=== PATIENT | male | born 1940 | race Caucasian/White ===

== ENCOUNTER 2019-10-23 07:10 | Inpatient (IN) | payer MEDICARE ==
--- NOTE | 2019-10-23 07:30 | ED Physician Documentation ---
PD HPI FOCAL NEURO - Stated complaint Stated Complaint: NUMBNESS LT SIDE - Chief complaint Chief Complaint: Neuro - History obtained from History obtained from: Patient - History of Present Illness Timing - onset: How many days ago (2) Timing - duration: Days (2) Timing - details: Abrupt onset (2 days ago and has persisted.) Severity of deficit: Moderate Weakness: Arm, Leg, Left, Other (seems fumbly and off balance with walking, with left leg not working well.) Numbness: Arm, Leg, Left. 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 denies: Difficulty speaking, Near syncope, Syncope, Altered mental status, Headache, Head injury PD PAST MEDICAL HISTORY - Past Medical History Cardiovascular: None Respiratory: None Neuro: None Endocrine/Autoimmune: None - Present Medications Home Medications: Ambulatory Orders Medication Instructions Recorded Confirmed No Known Home Medications 10/23/19 10/23/19 - Allergies Allergies/Adverse Reactions: Allergies Allergy/AdvReac Type Severity Reaction Status Date / Time No Known Drug Allergies Allergy Verified 10/23/19 07:28 - Living Situation Living Situation: reports: With spouse/s.o. Living Arrangement: reports: At home - Social History Does the pt smoke?: No Does the pt drink ETOH?: No Does the pt have substance abuse?: No - Family History Family history: denies: Cerebral aneurysm PD ED PE NORMAL - Vitals Vital signs reviewed: Yes - General General: Alert and oriented X 3, No acute distress, Well developed/nourished - HEENT HEENT: Moist mucous membranes, Pharynx benign, Other (definitely hard of hearing; hears low tones better) - Neck Neck: Supple, no meningeal sign, No adenopathy, No bruit - Cardiac Cardiac: RRR, No murmur - Respiratory Respiratory: Clear bilaterally - Abdomen Abdomen: Soft, Non tender - Back Back: No CVA TTP - Derm Derm: Normal color, Warm and dry - Extremities Extremities: No deformity, No tenderness to palpate - Neuro Neuro: Alert and oriented X 3, 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, No motor deficit (His strength in the extremities seems good but he is definitely showing ataxia with movement on the left side.), No sensory deficit (He actually seems to have good sensation to pinprick in the extremities.), Normal speech Eye Opening: Spontaneous Motor: Obeys Commands Verbal: Oriented GCS Score: 15 - Psych Psych: Normal mood NIHSS - Level of Consciousness Level of consciousness: (0) Alert, Keenly responsive LOC Questions: (0) Answers both Q's correct LOC Commands: (0) Performs both correctly - Gaze Best Gaze: (0) Normal - Visual Visual: (0) No loss - Facial Palsy Facial Palsy: (0) Normal, symmetrical movement - Motor Arms (both separate) Motor Arm (right): (0) No drift Motor Arm (left): (1) Drift - Motor Legs (both separate) Motor Leg (right): (0) No drift Motor Leg (left): (1) Drift - Limb Ataxia Limb Ataxia: (2) Present in 2 limbs - Sensory Sensory: (0) Normal - Best Language Best Language: (0) No aphasia - Dysarthria Dysarthria: (0) Normal - Extinction and Inattention (formally neg Extinction and inattention: (0) No abnormality - Total Score/Results Total Score/Result: 4 Results - Vitals Vitals: Vital Signs - 24 hr 10/23/19 10/23/19 10/23/19 07:25 09:00 10:30 Temperature 36.5 C Heart Rate 95 77 94 Respiratory 16 16 20 Rate Blood Pressure 163/125 H 134/74 H 168/109 H O2 Saturation 100 100 98 10/23/19 10/23/19 11:30 12:30 Temperature Heart Rate 85 89 Respiratory 18 13 Rate Blood Pressure 134/77 H 127/67 O2 Saturation 95 97 Oxygen O2 Source Room air - EKG (time done) 07:24 Rate: Rate (enter#) (84) Rhythm: NSR [place]: Normal Intervals: Normal [place] QRS: Normal Ischemia: Normal ST segments, Non specific changes. No: ST elevation c/w ischemia, Q waves - Labs Labs: Laboratory Tests 10/23/19 10/23/19 10/23/19 07:35 07:35 07:35 WBC 8.8 RBC 5.45 Hgb 15.7 Hct 48.1 MCV 88.3 MCH 28.8 MCHC 32.6 RDW 13.2 Plt Count 290 MPV 9.1 Neut # (Auto) 6.6 Lymph # (Auto) 1.5 [place] # (Auto) 0.5 Eos # (Auto) 0.1 Baso # (Auto) 0.1 Absolute Nucleated RBC 0.00 Nucleated RBC % 0.0 ESR 3 Sodium 139 Potassium 4.0 Chloride 104 Carbon Dioxide 25 Anion Gap 10.0 BUN 18 Creatinine 1.0 Estimated GFR (MDRD) 72 L Glucose 110 H POC Whole Bld Glucose Calcium 9.4 Magnesium 2.1 Total Bilirubin 1.3 H AST 16 ALT 18 Alkaline Phosphatase 94 Troponin I High Sens Total Protein 7.2 Albumin 4.3 Globulin 2.9 Albumin/Globulin Ratio 1.5 Lipase 38 10/23/19 10/23/19 07:35 07:38 WBC RBC Hgb Hct MCV MCH MCHC RDW Plt Count MPV Neut # (Auto) Lymph # (Auto) [place] # (Auto) Eos # (Auto) Baso # (Auto) Absolute Nucleated RBC Nucleated RBC % ESR Sodium Potassium Chloride Carbon Dioxide Anion Gap BUN Creatinine Estimated GFR (MDRD) Glucose POC Whole Bld Glucose 98 Calcium Magnesium Total Bilirubin AST ALT Alkaline Phosphatase Troponin I High Sens 8.7 Total Protein Albumin Globulin Albumin/Globulin Ratio Lipase - Rads (name of study) head and neck CT/angio Radiology: Prelim report reviewed, Discussed with rads (right distal 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 No masses, bleeding, edema. Neck portion normal. ), See rad report PD MEDICAL DECISION MAKING - ED course Complexity details: reviewed results (Apparent subacute stroke on CT of the right occipital area. He is having ataxic movements and report of some numbness. I would have expected some middle cerebral artery distribution. It does seem more ataxic than week on exam. I will talk with the hospitalist regarding further evaluation and work-up. One limitation may be the unavailability of MRI at our facility for [address] more [address] though the [address] is showing the deficit and will decide if the degree of need for MRI in addition.He will likely need OT and PT evaluation. He is in a sinus rhythm but consider echo for evaluating the idea of embolic cause. We will start him on aspirin and Plavix at this time.), re-evaluated patient, considered differential (Symptoms for 2 days with some left-sided ataxia and reported numbness. No facial involvement. He denies any visual changes or vision loss. Things have not been improving so he his talked him into coming in for evaluation.), d/w patient, d/w safety and health consultant (I talked with the hospitalist at approximate 1138 to discussed disposition for admission for stroke. She asked that I talk with [place] [facility] to ensure no other interventions. I did talk with [place] [facility] about 10 or 15 minutes later and reviewed the case. He said there were no acute interventions needed but did suggest stroke work-up including echo and typical evaluations. I updated the patient and his about the anticipated course of evaluation.) Departure - Departure Disposition: 66 [facility] DC/Xfer Clinical Impression: Cerebrovascular accident (CVA) Condition: Stable
[2019-10-23] MEDS ORDERED: SODIUM CHLORIDE 0.9% 1,000 ML IV ONE (07:49)
[2019-10-23] MEDS ORDERED: IOVERSOL 320 100 ML VIAL IVP ONE ×2 (07:58→08:46)
[2019-10-23 08:04] LABS: BASOPHILS # (AUTO) 0.1 10^3/uL (0.0-0.1); BASOPHILS % (AUTO) 0.7 %; EOSINOPHILS # (AUTO) 0.1 10^3/uL (0.0-0.7); EOSINOPHILS % (AUTO) 0.8 %; HGB - HEMOGLOBIN 15.7 g/dL (14.0-18.0); LYMPHOCYTES # (AUTO) 1.5 10^3/uL (1.5-3.5); LYMPHOCYTES % (AUTO) 17.3 %; MEAN CORPUSCULAR HEMOGLOBIN 28.8 pg (27.0-31.0); MEAN CORPUSCULAR HGB CONC 32.6 g/dL (32.0-36.0); MEAN CORPUSCULAR VOLUME 88.3 fL (80.0-94.0); MEAN PLATELET VOLUME 9.1 fL (7.4-11.4); MONOCYTES # (AUTO) 0.5 10^3/uL (0.0-1.0); MONOCYTES % (AUTO) 5.9 %; NEUTROPHILS # (AUTO) 6.6 10^3/uL (1.5-6.6); NEUTROPHILS % (AUTO) 74.5 %; PLT - PLATELET COUNT 290 10^3/uL (130-450); RED BLOOD COUNT 5.45 10^6/uL (4.70-6.10); RED CELL DISTRIBUTION WIDTH 13.2 % (12.0-15.0); WHITE BLOOD COUNT 8.8 x10^3/uL (4.8-10.8)
[2019-10-23 08:07] LABS: ALBUMIN 4.3 g/dL (3.2-5.5); ALBUMIN/GLOBULIN RATIO 1.5 (1.0-2.2); BILIRUBIN,TOTAL 1.3 mg/dL (0.2-1.0); CALCIUM 9.4 mg/dL (8.5-10.3); MAGNESIUM 2.1 mg/dL (1.7-2.8); TOTAL PROTEIN 7.2 g/dL (6.7-8.2)
--- NOTE | 2019-10-23 09:35 | CT Report ---
Reason: L sided facial droop Procedure Date: 10/23/2019 Accession Number: [id number] / [id number] Procedure: CT - ANGIO HEAD W/WO CPT Code: Final Report FULL RESULT: EXAM: CT ANGIOGRAM HEAD AND NECK. CT SCAN HEAD WITHOUT AND WITH CONTRAST. EXAM DATE: 10/23/2019 08:45 AM. CLINICAL HISTORY: Left arm and leg numbness and ataxia, difficulty walking, confusion x2 days COMPARISON: None available at this institution. TECHNIQUE: Routine axial helical CTA imaging was performed from the aortic arch through the [place] of Vo. Routine axial CT imaging of the head was performed prior to and following contrast administration. Reconstructions: Routine multiplanar 3D MIP reconstructions. IV contrast: 80 cc Optiray 320 IV. NASCET Criteria are used for stenosis measurements. In accordance with CT protocol optimization, one or more of the following dose reduction techniques were utilized for this exam: automated exposure control, adjustment of mA and/or KV based on patient size, or use of iterative reconstructive technique. FINDINGS: Non Contrast Head: There is no mass, mass effect, midline shift or abnormal extraaxial fluid collection. Size and configuration of the ventricles appear normal. There is no intracranial hemorrhage. There is loss of ruiz-white matter differentiation in the posterior inferior right occipital lobe, area measuring 2.8 x 1.6 x 1.9 cm (best seen on axial image 11 series 3 and coronal image 34 series 10). Mild diffuse cerebral volume loss. Brain stem and cerebellum appear unremarkable. Calvarium and skull base appear intact and normal. Orbits and extracranial soft tissue appear unremarkable. Post contrast CT Head: No abnormal enhancement. Ruiz white matter differentiation appear preserved. Dural venous sinus and deep cerebral veins appear normal. CTA HEAD: Anterior Circulation: The internal carotid arteries (ICA), middle cerebral arteries (MCA), and anterior cerebral arteries (NIKUNJ) are patent bilaterally. The anterior communicating artery (A-COM) appears patent. No aneurysms, stenoses, or anatomic anomalies evident. Posterior Circulation: Abnormal appearance, tapering of the P2 segment right TOY DEPARTMENT MANAGER without distal reconstitution. The superior vertebral artery, basilar, and posterior cerebral arteries (TOY DEPARTMENT MANAGER) are otherwise patent. No aneurysms, stenoses, or anomalies evident. The posterior communicating arteries (P-COM) are patent on the right, hypoplastic on the left. CTA NECK: Right Carotid: The common carotid, internal carotid, and external carotid arteries are widely patent. No dissection, significant atherosclerotic plaque, or calcification identified. No significant stenosis by NASCET criteria. Left Carotid: The common carotid, internal carotid, and external carotid arteries are widely patent. No dissection, significant atherosclerotic plaque, or calcification identified. No significant stenosis by NASCET criteria. Vertebrals: The vertebrobasilar system shows no stenosis, dissection, aneurysm, or significant atherosclerotic disease. Visible aortic arch and pulmonary artery appear normal. Other: Multilevel degenerative changes of the cervical spine without significant canal narrowing. Multilevel facet degenerative changes. No suspicious lytic or sclerotic osseous lesion. Neck soft tissue appear unremarkable. Paranasal sinuses and mastoid air cells are unremarkable. IMPRESSION: CT SCAN HEAD: 1. No intracranial hemorrhage, midline shift or hydrocephalus. 2. Evolving subacute inferior posterior right occipital lobe infarction, in the right TOY DEPARTMENT MANAGER territory. 3. Mild diffuse cerebral volume loss. 4. No abnormal enhancement. Enhancement within the dural venous sinuses appear unremarkable. CT ANGIOGRAM NECK: 1. No significant cervical carotid or vertebral artery stenosis. 2. No evidence for dissection. CT ANGIOGRAM HEAD: 1. Tapering of the distal right TOY DEPARTMENT MANAGER, compatible with thrombosis of its P2 segment and distally. 2. No significant intracranial arterial stenosis otherwise. No evidence for aneurysm. RADIA The critical result notification system was initiated by Dr. Celso Dumont at 09:26 AM on 10/23/2019. The above critical result findings were discussed with Dr.John Pandya by Dr. Celso Dumont at 09:28 AM on 10/23/2019.
--- NOTE | 2019-10-23 09:35 | CT Report ---
Reason: L sided facial droop, L neck pain Procedure Date: 10/23/2019 Accession Number: [id number] / [id number] Procedure: CT - ANGIO NECK W CPT Code: Final Report FULL RESULT: EXAM: CT ANGIOGRAM HEAD AND NECK. CT SCAN HEAD WITHOUT AND WITH CONTRAST. EXAM DATE: 10/23/2019 08:45 AM. CLINICAL HISTORY: Left arm and leg numbness and ataxia, difficulty walking, confusion x2 days COMPARISON: None available at this institution. TECHNIQUE: Routine axial helical CTA imaging was performed from the aortic arch through the [place] of Vo. Routine axial CT imaging of the head was performed prior to and following contrast administration. Reconstructions: Routine multiplanar 3D MIP reconstructions. IV contrast: 80 cc Optiray 320 IV. NASCET Criteria are used for stenosis measurements. In accordance with CT protocol optimization, one or more of the following dose reduction techniques were utilized for this exam: automated exposure control, adjustment of mA and/or KV based on patient size, or use of iterative reconstructive technique. FINDINGS: Non Contrast Head: There is no mass, mass effect, midline shift or abnormal extraaxial fluid collection. Size and configuration of the ventricles appear normal. There is no intracranial hemorrhage. There is loss of ruiz-white matter differentiation in the posterior inferior right occipital lobe, area measuring 2.8 x 1.6 x 1.9 cm (best seen on axial image 11 series 3 and coronal image 34 series 10). Mild diffuse cerebral volume loss. Brain stem and cerebellum appear unremarkable. Calvarium and skull base appear intact and normal. Orbits and extracranial soft tissue appear unremarkable. Post contrast CT Head: No abnormal enhancement. Ruiz white matter differentiation appear preserved. Dural venous sinus and deep cerebral veins appear normal. CTA HEAD: Anterior Circulation: The internal carotid arteries (ICA), middle cerebral arteries (MCA), and anterior cerebral arteries (NIKUNJ) are patent bilaterally. The anterior communicating artery (A-COM) appears patent. No aneurysms, stenoses, or anatomic anomalies evident. Posterior Circulation: Abnormal appearance, tapering of the P2 segment right AGENCY RECRUITER without distal reconstitution. The superior vertebral artery, basilar, and posterior cerebral arteries (AGENCY RECRUITER) are otherwise patent. No aneurysms, stenoses, or anomalies evident. The posterior communicating arteries (P-COM) are patent on the right, hypoplastic on the left. CTA NECK: Right Carotid: The common carotid, internal carotid, and external carotid arteries are widely patent. No dissection, significant atherosclerotic plaque, or calcification identified. No significant stenosis by NASCET criteria. Left Carotid: The common carotid, internal carotid, and external carotid arteries are widely patent. No dissection, significant atherosclerotic plaque, or calcification identified. No significant stenosis by NASCET criteria. Vertebrals: The vertebrobasilar system shows no stenosis, dissection, aneurysm, or significant atherosclerotic disease. Visible aortic arch and pulmonary artery appear normal. Other: Multilevel degenerative changes of the cervical spine without significant canal narrowing. Multilevel facet degenerative changes. No suspicious lytic or sclerotic osseous lesion. Neck soft tissue appear unremarkable. Paranasal sinuses and mastoid air cells are unremarkable. IMPRESSION: CT SCAN HEAD: 1. No intracranial hemorrhage, midline shift or hydrocephalus. 2. Evolving subacute inferior posterior right occipital lobe infarction, in the right AGENCY RECRUITER territory. 3. Mild diffuse cerebral volume loss. 4. No abnormal enhancement. Enhancement within the dural venous sinuses appear unremarkable. CT ANGIOGRAM NECK: 1. No significant cervical carotid or vertebral artery stenosis. 2. No evidence for dissection. CT ANGIOGRAM HEAD: 1. Tapering of the distal right AGENCY RECRUITER, compatible with thrombosis of its P2 segment and distally. 2. No significant intracranial arterial stenosis otherwise. No evidence for aneurysm. RADIA The critical result notification system was initiated by Dr. Celso Dumont at 09:26 AM on 10/23/2019. The above critical result findings were discussed with Dr.John Pandya by Dr. Celso Dumont at 09:28 AM on 10/23/2019.
[2019-10-23] MEDS ORDERED: ASPIRIN CHEW 81 MG TABLET PO STA (10:12)
[2019-10-23] MEDS ORDERED: CLOPIDOGREL 75 MG TABLET PO STA (10:12)
[2019-10-23] MEDS ORDERED: ONDANSETRON 4 MG/2 ML VIAL IVP PRN (13:55)
[2019-10-23] MEDS ORDERED: ACETAMINOPHEN 325 MG TABLET PO PRN (13:55)
[2019-10-23] MEDS ORDERED: SODIUM CHLORIDE FLUSH 0.9% 10 ML SYRINGE IVP PRN (13:55)
--- NOTE | 2019-10-23 16:38 | PHARMACY PROGRESS NOTE ---
- Best Possible Medication History Admit Date and Time: 10/23/19 7068 Processed by: Pharmacy Medication History completed: Yes Patient Interview: Pt unable to participate Secondary Source(s): Spouse/Significant other As the person ultimately responsible for medication therapy, providers are able to order a medication from an existing home medication list in [facility] via the "Reconcile Routine" prior to Confirmation of that medication by applications support analyst. Such practice is discouraged except when the physician, in their clinical judgment, deems that a medical need exists for a medication without regard to previous use.
--- NOTE | 2019-10-23 17:34 | Ultrasound Report ---
Reason: Stroke Procedure Date: 10/23/2019 Accession Number: [id number] / [id number] Procedure: US - Carotid Doppler Complete CPT Code: Final Report FULL RESULT: EXAM: BILATERAL CAROTID AND VERTEBRAL ARTERY DUPLEX DOPPLER ULTRASOUND: EXAM DATE: 10/23/2019 03:39 PM CLINICAL HISTORY: Stroke. COMPARISON: ANGIO NECK W 10/23/2019 8:28 AM. TECHNIQUE: Grayscale imaging, color Doppler, and duplex spectral Doppler were used to evaluate the carotid and vertebral arteries bilaterally. Static images were obtained. FINDINGS: Intimal hyperplasia bilateral common carotid arteries. No significant plaque is identified in the right or left common or internal carotid arteries. Normal antegrade flow is present in bilateral vertebral arteries. VELOCITIES (cm/s): Right CCA mid: PSV 83.3 cm/s CCA dist: PSV 64.2 cm/s ICA prox: PSV 32.6 cm/s, EDV 8.2 cm/s ICA mid: PSV 47.0 cm/s, EDV 14.2 cm/s ICA dist: PSV 72.4 cm/s, EDV 18.7 cm/s ECA: PSV 57.6 cm/s Vert: PSV 35.5 cm/s ICA/CCA: 1.1 Left CCA mid: PSV 78.5 cm/s CCA dist: PSV 86.1 cm/s ICA prox: PSV 79.7 cm/s, EDV 16.5 cm/s ICA mid: PSV 73.8 cm/s, EDV 20.0 cm/s ICA dist: PSV 96.5 cm/s, EDV 23.2 cm/s ECA: PSV 66.1 cm/s Vert: PSV 41.9 cm/s ICA/CCA: 1.0 ICA diameter stenosis: Right: <50% by velocity and <70% by NASCET criteria. Left: <50% by velocity and <70% by NASCET criteria. IMPRESSION: 1. No significant bilateral carotid artery plaquing. 2. In the right carotid artery there are no elevated carotid artery velocities to suggest hemodynamically significant stenosis. 3. In the left carotid artery there are no elevated carotid artery velocities to suggest hemodynamically significant stenosis. 4. Normal antegrade flow is present in bilateral vertebral arteries. General Recommendations: Stenosis =50% ICA - Follow-up ultrasound 6-12 months Stenosis <50% ICA - High Risk Patient with plaque - Follow-up ultrasound 1-2 years Normal Study but High Risk Patient - Follow-up ultrasound 3-5 years Management recommendations and diagnostic criteria are based on current IAC endorsed standards in Carotid Artery Stenosis: Grayscale and Doppler Ultrasound Diagnosis. Validated velocity measurements with angiographic measurements and velocity criteria are extrapolated from diameter data as defined by the Society of Radiologists in Ultrasound Consensus Conference Radiology 2003; 229;340-346. RADIA
[2019-10-23] MEDS: SODIUM CHLORIDE FLUSH 0.9% 10 ML SYRINGE IVP SCH (18:38)
[2019-10-23] MEDS: FAMOTIDINE 20 MG TABLET PO SCH (21:05)
--- NOTE | 2019-10-23 22:22 | HISTORY & PHYSICAL EXAMINATION ---
DATE OF SERVICE: 10/23/2019 Physician: Mendy Elizalde MD PRIMARY CARE PROVIDER: None HISTORY OF PRESENT ILLNESS: This is an 79-year-old white male with an essentially negative past medical history, and he takes no medications. He is hard of hearing. Two and a half days ago, the patient started to develop facial numbness and then left-sided arm and leg weakness. He tried to "wait it out" to see if it was better. The spouse tried to convince him to come to the hospital and finally convinced him to come in today. In the ER, he had neuro exam showing some decreased sensation of the left side and also an ataxic gait, but a normal strength exam, supine, on muscular exam. There was slightly slower speech also noted and a facial droop. The patient underwent CT imaging, which showed a right occipital stroke that was subacute, and a CTA of the head also showed an occluded posterior vessel. The ER doctor called [facility], and they discussed the case, and because this is felt to be a completed stroke with persistent neurologic deficit symptoms, no transfer and no intervention would be indicated at this time. PAST MEDICAL HISTORY: Hard of hearing. MEDICATIONS: None. ALLERGIES: NONE. FAMILY HISTORY: Unknown, the patient could not hear well to tell me details. SOCIAL HISTORY: According to the EMR, he has had no smoking history, no alcohol history, no substance abuse history. He lives with his . REVIEW OF SYSTEMS: A very general set of questions was given to the patient regarding any other complaints and the pertinent positives are listed above, the rest are negative. The patient is hard of hearing and apparently a hearing aid "did not help." PHYSICAL EXAMINATION GENERAL: Elderly white male supine in bed. He is in no distress. There is an obvious facial droop on one side. VITAL SIGNS: Blood pressure 149/81, heart rate 70 in sinus rhythm, afebrile, room air saturation 97%. HEENT: Shows moist oral mucosa and he is extremely hard of hearing. He looks like he is reading lips. The left face has loss of skin folds and has a mild droop. His speech is somewhat slow, but is clear and accurate with no slurring. NECK: No JVD and no carotid bruit. CHEST: Clear. HEART: Normal heart sounds, no murmurs. ABDOMEN: Soft, positive bowel sounds, nontender. No organomegaly. EXTREMITIES: No clubbing, cyanosis or edema. NEUROLOGIC: This was taken from the ER doctor's exam an hour previously that showed an ataxic gait and decreased sensation on the left side. LABORATORY DATA: Normal electrolytes. Normal BUN and creatinine. Normal magnesium. Normal liver tests. Troponin 8.7 and 12. Normal lipase. Normal CBC. No INR was done. EKG: Normal sinus rhythm, left atrial enlargement, otherwise within normal limits. IMAGING: Head CT and head and neck CTA were done. This showed no mass effect or midline shift and no hemorrhage. Inferior posterior right occipital lobe area has an abnormality, but the brainstem and cerebellum appear unremarkable. There is occlusion by tapering of the distal right WIND FARM ENGINEER, compatible with a thrombosis of the P2 segment. The cervical carotids and vertebral arteries had no abnormality. IMPRESSION/DIAGNOSES 1. Completed stroke (CT of the head shows an evolving subacute inferoposterior right occipital lobe infarct in the right WIND FARM ENGINEER territory). 2. Ataxia. 3. Vessel occlusion (WIND FARM ENGINEER of the brain was found to be occluded). 4. Hard of hearing. PLAN: Admit the patient to Inpatient status for a completed stroke, on telemetry to watch for atrial fibrillation. Begin physical therapy and occupational therapy, and he may require transfer for inpatient stroke rehabilitation. Obtain an Echo to evaluate for source of embolus or an intracardiac shunt. Obtain carotid Dopplers, if not yet visualized by neck CTA. Obtain a brain MRI for definition of the brain soft tissues, this is available in 48 hours here, not today or tomorrow. Continue with aspirin and Plavix daily, which were started in the ER treatment. Check lipids and treat per guidelines for LDL control. If anything can be done for hearing improvement, such as a hearing aid, this will be requested. Because of his marked hearing deficiency, I have written the plan and explanations of his diagnosis on an index card, for him to read and keep and refer to. CODE STATUS: FULL CODE. DEEP VENOUS THROMBOSIS PROPHYLAXIS: SCDs. ATTESTATION: The patient is expected to be discharged or transferred to another facility within 96 hours: Yes. TD: 10/23/2019 20:06 LO
[2019-10-24] MEDS: SODIUM CHLORIDE FLUSH 0.9% 10 ML SYRINGE IVP SCH ×3 (01:48→22:17)
[2019-10-24 05:56] LABS: BASOPHILS % (AUTO) 0.4 %; EOSINOPHILS % (AUTO) 0.4 %; HGB - HEMOGLOBIN 14.1 g/dL (14.0-18.0); LYMPHOCYTES # (AUTO) 1.5 10^3/uL (1.5-3.5); LYMPHOCYTES % (AUTO) 13.3 %; MEAN CORPUSCULAR HGB CONC 33.2 g/dL (32.0-36.0); MEAN CORPUSCULAR VOLUME 87.4 fL (80.0-94.0); MEAN PLATELET VOLUME 9.1 fL (7.4-11.4); MONOCYTES # (AUTO) 0.7 10^3/uL (0.0-1.0); MONOCYTES % (AUTO) 6.4 %; NEUTROPHILS # (AUTO) 8.7 10^3/uL (1.5-6.6); NEUTROPHILS % (AUTO) 79.1 %; PLT - PLATELET COUNT 270 10^3/uL (130-450); RED BLOOD COUNT 4.86 10^6/uL (4.70-6.10); RED CELL DISTRIBUTION WIDTH 13.1 % (12.0-15.0); WHITE BLOOD COUNT 10.9 x10^3/uL (4.8-10.8)
[2019-10-24 05:59] LABS: INR 1.2 (0.8-1.2); PT - PROTHROMBIN TIME 13.3 secs (9.9-12.6)
[2019-10-24 06:09] LABS: ALBUMIN 3.7 g/dL (3.2-5.5); ALBUMIN/GLOBULIN RATIO 1.3 (1.0-2.2); BILIRUBIN,TOTAL 1.1 mg/dL (0.2-1.0); CALCIUM 8.9 mg/dL (8.5-10.3); TOTAL PROTEIN 6.6 g/dL (6.7-8.2)
[2019-10-24 06:11] LABS: CHOL/HDL RATIO 5.2 (<5.0); CHOLESTEROL 151 mg/dL; HDL CHOLESTEROL 29 mg/dL; LDL CHOLESTEROL,CALCULATED 108 mg/dL; LDL/HDL RATIO 3.7 (<3.6); VLDL CHOLESTEROL 14 mg/dL
[2019-10-24] MEDS: ASPIRIN CHEW 81 MG TABLET PO SCH (09:18)
[2019-10-24] MEDS: CLOPIDOGREL 75 MG TABLET PO SCH (09:18)
[2019-10-24] MEDS: FAMOTIDINE 20 MG TABLET PO SCH ×2 (09:19→22:17)
--- NOTE | 2019-10-24 12:28 | PROVIDER PROGRESS NOTE ---
Assessment/Plan - Current Meds Current Meds: Current Medications Generic Name Dose Route Start Last Admin Trade Name Aishwarya PRN Reason Stop Dose Admin Aspirin 162 mg 10/24/19 09:00 10/24/19 09:18 St Geo Aspirin PO 162 mg DAILY PHAN Administration Clopidogrel Bisulfate 75 mg 10/24/19 09:00 10/24/19 09:18 Plavix PO 75 mg DAILY PHAN Administration Famotidine 20 mg 10/23/19 21:00 10/24/19 09:19 Pepcid PO 20 mg BID PHAN Administration Sodium Chloride 10 ml 10/23/19 17:00 10/24/19 09:19 Normal Saline Flush 0.9% IVP 10 ml 0100,0900,1700 PHAN Administration - Lab Result Fish Bone Diagrams: 10/24/19 05:40 10/24/19 05:40 - Additional Planning My Orders: My Active Orders 10/23/19 13:50 Straight Catheter Insertion [RC] PRN Clinical Swallow Eval w/Modified ST [ST] Routine 10/23/19 13:51 Blood Glucose POC [RC] Routine Neuro Check [RC] Q4HR 10/23/19 13:55 Activity Orders [RC] Q2HR IO [RC] IOSHIFT Initiate Bowel Care Protocol [RC] .protocol Initiate Line Care Protocol [RC] QSHIFT Initiate Personal Care Protoco [RC] .protocol Initiate Secretion Clearance P [RC] .PROTOCOL Oxygen Therapy [RC] .PRN Telemetry- [RC] Q4HR Vital Signs [RC] Q4H Acetaminophen [Tylenol] 650 mg PO Q4HR PRN Ondansetron Inj [Zofran Inj] 4 mg IVP Q6HR PRN Sodium Chloride Flush 0.9% [Normal Saline Flush 0.9%] 10 ml IVP PRN PRN Code Status [OTHERS] Routine Condition of Patient [OTHERS] Routine DVT Prophylaxis [OTHERS] Routine 10/23/19 13:56 IV Insert [RC] .ONCE SCDs [RC] QSHIFT 10/23/19 13:59 Social Work Consult [CONS] Routine Evaluate and Treat OT [OT] Routine Evaluate and Treat PT [PT] Routine 10/23/19 17:00 Sodium Chloride Flush 0.9% [Normal Saline Flush 0.9%] 10 ml IVP 0100,0900,1700 10/23/19 21:00 Famotidine [Pepcid] 20 mg PO BID 10/24/19 09:00 Aspirin Chewable [St Geo Aspirin] 162 mg PO DAILY Clopidogrel [Plavix] 75 mg PO DAILY 10/24/19 12:26 Spironolactone [Aldactone] 12.5 mg PO 1200 10/24/19 13:00 carvediloL [Coreg] 3.125 mg PO BID 10/24/19 13:54 Echo Complete w/Bubble Study [ECHO] Routine 10/24/19 21:00 Losartan [Cozaar] 25 mg PO QPM 10/24/19 Lunch Dysphagia Mechanically Altered Diet [DIET] 10/25/19 08:00 BRAIN WO [MRI] Routine Objective Vital Signs: Vital Signs - 24 hr 10/23/19 10/23/19 10/23/19 12:30 14:00 14:44 Temperature 36.7 C Heart Rate 89 81 Heart Rate [ 77 Brachial] Respiratory 13 15 18 Rate Blood Pressure 127/67 152/86 H Blood Pressure 149/81 H [Left Brachial artery] Blood Pressure [Right Brachial artery] O2 Saturation 97 97 97 10/23/19 10/23/19 10/23/19 15:59 20:36 21:15 Temperature 36.8 C 36.7 C 36.7 C Heart Rate 88 Heart Rate [ 50 L 88 Brachial] Respiratory 18 19 18 Rate Blood Pressure Blood Pressure [Left Brachial artery] Blood Pressure 162/77 H 148/80 H [Right Brachial artery] O2 Saturation 97 96 97 10/24/19 10/24/19 10/24/19 00:00 05:00 08:45 Temperature 37.0 C 37.1 C 36.6 C Heart Rate Heart Rate [ 88 86 80 Brachial] Respiratory 18 18 18 Rate Blood Pressure Blood Pressure [Left Brachial artery] Blood Pressure 136/81 H 139/77 H 117/82 H [Right Brachial artery] O2 Saturation 97 97 97 10/24/19 12:05 Temperature 37.0 C Heart Rate Heart Rate [ 85 Brachial] Respiratory 18 Rate Blood Pressure Blood Pressure [Left Brachial artery] Blood Pressure 145/91 H [Right Brachial artery] O2 Saturation 99 Oxygen O2 Source Room air I&O (Last 24 Hrs): Intake and Output Totals x24h 10/22/19 10/23/19 10/24/19 23:59 23:59 23:59 Intake Total 1536 60 Output Total 600 180 Balance 936 -120 - Results Results: Laboratory Results WBC 10.9 x10^3/uL (4.8-10.8) H 10/24/19 05:40 RBC 4.86 10^6/uL (4.70-6.10) 10/24/19 05:40 Hgb 14.1 g/dL (14.0-18.0) 10/24/19 05:40 Hct 42.5 % (42.0-52.0) 10/24/19 05:40 MCV 87.4 fL (80.0-94.0) 10/24/19 05:40 MCH 29.0 pg (27.0-31.0) 10/24/19 05:40 MCHC 33.2 g/dL (32.0-36.0) 10/24/19 05:40 RDW 13.1 % (12.0-15.0) 10/24/19 05:40 Plt Count 270 10^3/uL (130-450) 10/24/19 05:40 MPV 9.1 fL (7.4-11.4) 10/24/19 05:40 Neut # (Auto) 8.7 10^3/uL (1.5-6.6) H 10/24/19 05:40 Lymph # (Auto) 1.5 10^3/uL (1.5-3.5) 10/24/19 05:40 [place] # (Auto) 0.7 10^3/uL (0.0-1.0) 10/24/19 05:40 Eos # (Auto) 0.0 10^3/uL (0.0-0.7) 10/24/19 05:40 Baso # (Auto) 0.0 10^3/uL (0.0-0.1) 10/24/19 05:40 Absolute Nucleated RBC 0.00 x10^3/uL 10/24/19 05:40 Nucleated RBC % 0.0 /100WBC 10/24/19 05:40 ESR 3 mm/Hr (0-20) 10/23/19 07:35 PT 13.3 secs (9.9-12.6) H 10/24/19 05:40 INR 1.2 (0.8-1.2) 10/24/19 05:40 Sodium 137 mmol/L (135-145) 10/24/19 05:40 Potassium 3.7 mmol/L (3.5-5.0) 10/24/19 05:40 Chloride 106 mmol/L (101-111) 10/24/19 05:40 Carbon Dioxide 24 mmol/L (21-32) 10/24/19 05:40 Anion Gap 7.0 (6-13) 10/24/19 05:40 BUN 19 mg/dL (6-20) 10/24/19 05:40 Creatinine 1.0 mg/dL (0.6-1.2) 10/24/19 05:40 Estimated GFR (MDRD) 72 (>89) L 10/24/19 05:40 Glucose 105 mg/dL (70-100) H 10/24/19 05:40 POC Whole Bld Glucose 98 mg/dL (70 - 100) 10/23/19 07:38 Calcium 8.9 mg/dL (8.5-10.3) 10/24/19 05:40 Magnesium 2.1 mg/dL (1.7-2.8) 10/23/19 07:35 Total Bilirubin 1.1 mg/dL (0.2-1.0) H 10/24/19 05:40 AST 14 IU/L (10-42) 10/24/19 05:40 ALT 17 IU/L (10-60) 10/24/19 05:40 Alkaline Phosphatase 77 IU/L (42-121) 10/24/19 05:40 Troponin I High Sens 12.4 ng/L (2.3-19.7) 10/23/19 14:02 Total Protein 6.6 g/dL (6.7-8.2) L 10/24/19 05:40 Albumin 3.7 g/dL (3.2-5.5) 10/24/19 05:40 Globulin 2.9 g/dL (2.1-4.2) 10/24/19 05:40 Albumin/Globulin Ratio 1.3 (1.0-2.2) 10/24/19 05:40 Triglycerides 72 mg/dL (-149) 10/24/19 05:40 Cholesterol 151 mg/dL (-199) 10/24/19 05:40 LDL Cholesterol, Calc 108 mg/dL (-129) 10/24/19 05:40 VLDL Cholesterol 14 mg/dL 10/24/19 05:40 HDL Cholesterol 29 mg/dL (60-) L 10/24/19 05:40 LDL/HDL Ratio 3.7 (<3.6) 10/24/19 05:40 Cholesterol/HDL Ratio 5.2 (<5.0) 10/24/19 05:40 Lipase 38 U/L (22-51) 10/23/19 07:35
[2019-10-24] MEDS: carvediloL 3.125 MG TABLET PO SCH ×2 (13:57→22:17)
[2019-10-24] MEDS: SPIRONOLACTONE 25 MG TABLET PO SCH (13:58)
--- NOTE | 2019-10-24 14:21 | XRAY Report ---
Reason: New CHF Procedure Date: 10/24/2019 Accession Number: [id number] / [id number] Procedure: XR - Chest 1 View X-Ray CPT Code: 85748 Final Report FULL RESULT: EXAM: CHEST RADIOGRAPHY EXAM DATE: 10/24/2019 12:42 PM. CLINICAL HISTORY: New CHF. COMPARISON: None. TECHNIQUE: 1 view. FINDINGS: Lungs/Pleura: No focal opacities evident. No pleural effusion. No pneumothorax. Mediastinum: Within exam limitations, the cardiomediastinal contour is normal. Other: None. IMPRESSION: No pulmonary edema identified. RADIA
[2019-10-24] MEDS ORDERED: LOSARTAN 50 MG TABLET PO SCH (21:00)
[2019-10-24] MEDS ORDERED: ATORVASTATIN 40 MG TABLET PO SCH (21:00)
[2019-10-25] MEDS: SODIUM CHLORIDE FLUSH 0.9% 10 ML SYRINGE IVP SCH ×2 (00:39→10:28)
[2019-10-25 06:25] LABS: BASOPHILS # (AUTO) 0.1 10^3/uL (0.0-0.1); BASOPHILS % (AUTO) 0.8 %; EOSINOPHILS # (AUTO) 0.2 10^3/uL (0.0-0.7); EOSINOPHILS % (AUTO) 2.6 %; HGB - HEMOGLOBIN 14.4 g/dL (14.0-18.0); LYMPHOCYTES # (AUTO) 1.9 10^3/uL (1.5-3.5); LYMPHOCYTES % (AUTO) 25.4 %; MEAN CORPUSCULAR HEMOGLOBIN 28.9 pg (27.0-31.0); MEAN CORPUSCULAR VOLUME 87.6 fL (80.0-94.0); MEAN PLATELET VOLUME 9.2 fL (7.4-11.4); MONOCYTES # (AUTO) 0.6 10^3/uL (0.0-1.0); MONOCYTES % (AUTO) 7.7 %; NEUTROPHILS # (AUTO) 4.8 10^3/uL (1.5-6.6); NEUTROPHILS % (AUTO) 63.2 %; PLT - PLATELET COUNT 287 10^3/uL (130-450); RED BLOOD COUNT 4.98 10^6/uL (4.70-6.10); RED CELL DISTRIBUTION WIDTH 13.2 % (12.0-15.0); WHITE BLOOD COUNT 7.6 x10^3/uL (4.8-10.8)
[2019-10-25 06:38] LABS: ALBUMIN 3.6 g/dL (3.2-5.5); ALBUMIN/GLOBULIN RATIO 1.2 (1.0-2.2); BILIRUBIN,TOTAL 1.1 mg/dL (0.2-1.0); CALCIUM 8.8 mg/dL (8.5-10.3); TOTAL PROTEIN 6.5 g/dL (6.7-8.2)
[2019-10-25] MEDS: CLOPIDOGREL 75 MG TABLET PO SCH (10:27)
[2019-10-25] MEDS: ASPIRIN CHEW 81 MG TABLET PO SCH (10:28)
[2019-10-25] MEDS: carvediloL 3.125 MG TABLET PO SCH (10:28)
--- NOTE | 2019-10-25 10:53 | MRI Report ---
Reason: Stroke Procedure Date: 10/25/2019 Accession Number: [id number] / [id number] Procedure: MRI - Brain W/O CPT Code: Final Report FULL RESULT: EXAM: MRI BRAIN WITHOUT CONTRAST EXAM DATE: 10/25/2019 10:22 AM. CLINICAL HISTORY: Stroke. COMPARISON: ANGIO HEAD W/WO 10/23/2019 8:28 AM. TECHNIQUE: Multiplanar, multisequence T1-weighted and fluid-sensitive MR sequences of the brain were performed. Sequences optimized for routine evaluation. Other: None. IV Contrast: None. FINDINGS: Parenchyma/Dura: There is a band of restricted diffusion involving right posterior temporal lobe and right occipital lobe. There are foci of restricted diffusion in the right thalamus. No significant mass-effect. Patchy areas of high T2 signal involving white matter of bilateral cerebral hemispheres. Ventricles/Cisterns: Mild prominence. No mass-effect or no midline shift. No abnormal extra-axial fluid collection or hemorrhage. Orbits: Symmetric and unremarkable. Sella Turcica: Unremarkable. IAC: Symmetric and unremarkable. Sinuses: No acute appearing sinus disease. Bones: No focal pathologic appearing marrow signal changes. Other: None. IMPRESSION: 1. Acute right posterior cerebral artery infarct. (Imaging time estimate 2-7 days post ictus. 2. Moderate microvascular white matter disease. RADIA The above call report findings were discussed with Dr. Ferreira by Dr. Umang Luu at 10:51 AM on 10/25/2019.
[2019-10-25] MEDS: SPIRONOLACTONE 25 MG TABLET PO SCH (11:37)
--- NOTE | 2019-10-25 11:58 | Discharge Plan ---
Discharge Plan Problem Reviewed?: Yes Disposition: Home, Self Care Condition: Good Prescriptions: Aspirin [Glory] 325 mg PO DAILYWM #30 tablet Atorvastatin [Lipitor] 40 mg PO QPM #30 tablet carvediloL [Coreg] 3.125 mg PO BID #60 tablet Losartan Potassium 25 mg PO QPM #30 tablet Spironolactone [Aldactone] 12.5 mg PO 1200 #30 tablet Diet: Cardiac Activity Restrictions: Activity as Tolerated Instruction Topics: Aspirin ASA chewable tablets, Stroke Sx, Stroke Ischemic, Stroke Taking Meds, Eat Healthy, COVID-19 [facility], COVID-19 [facility] Department Statement, Heart Failure Dc Health Concerns: You were seen in the hospital because there was concern that you had a stroke. A CT scan of your head showed a stroke at the back of your brain on the right side. You had an MRI of the stroke which confirmed this. You were started on medication called aspirin and Lipitor which you need to take every day to prevent another stroke. While you were here in the hospital, you had an ultrasound of your heart given the stroke which did not show blood clots but showed your heart pump was weak. This is what we call heart failure and normally your heart pumps around 55% of the blood in it but yours is pumping around 30%. This can potentially cause you to develop fluid in the lungs and have difficulty breathing. It is important that you take your medications as prescribed and follow-up with your primary care provider. You may need to see a computer aided design operator on an outpatient basis. Plan of Treatment: Please begin taking aspirin 325 mg daily. Please take Lipitor 40 mg every evening. This is to prevent another stroke from occurring. Please take carvedilol 3.125 mg twice a day, losartan 25 mg every evening, and spironolactone 12.5 mg daily. These medications are to help your heart muscle recover and get stronger. Care Goals: You have been provided a documentation with a list of primary care providers. Please contact one of them to set up an appointment. You should see them within 1 week. Assessment: Patient expressed understanding of the treatment plan. Additional Instructions or Follow Up instructions: If you notice you develop shortness of breath, chest pain, or worsening swelling in your legs then please call your primary care provider or return to the emergency department. No Smoking: If you smoke, Please STOP! Call for help.
[2019-10-25 12:00] VITALS: BP 154/81
--- NOTE | 2019-10-25 12:03 | DISCHARGE SUMMARY ---
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 Hard of hearing - stable. - HPI History of Present Illness: H&P per Dr. Elizalde on 10/23/19: This is an 79-year-old white male with an essentially negative past medical history, he takes no medications. He is hard of hearing. 2 and half days ago, the patient started to develop facial numbness and left-sided arm and leg weakness. He tried to wait it out to see if it was better. This past convince him to come to the hospital he finally convinced him to come in today. In the ER, he had neuro exam showing some decrease in station of the leg and also ataxic gait, but normal strength exam on muscular exam. There are slightly lower slower speech also noted. The patient underwent CT imaging, which showed a right supra stroke that was subacute, and a CT of the head all showing a blockage of an occluded posterior vessel. The ER doctor called Michele kelsey gy discussed the case, and because this is felt to be a complete stroke with persistent neurologic deficit symptoms, no transfer no intervention will be indicated at this time. - CONSULTS | PROCEDURES Consultations: PT/OT/ST. Procedures: An echocardiogram was obtained which showed an ejection fraction of 30%. There was global hypokinesis and the left ventricle was dilated with mild LVH. No intracardiac shunt or clot. MRI of the brain showed acute right posterior cerebral artery infarct. Moderate microvascular white matter disease. - HOSPITAL COURSE Hospital Course: Patient was admitted for ataxia and left-sided weakness. CTA of the head and neck showed stroke in the right CRYPTOGRAPHIC VULNERABILITY ANALYST region. Fortunately, the symptoms of the patient have improved and he is independent with ambulation and does not need physical therapy or rehab on discharge. He is initially treated with aspirin and Plavix and this was discussed with neurology prior to discharge who recommended just monotherapy with a full dose of aspirin on discharge given he had no other significant vascular disease on CTA of the head and neck. The patient did have an echocardiogram obtained which showed an ejection fraction of 30%. He was started on losartan, carvedilol, spironolactone. There was no evidence of atrial fibrillation during his hospitalization. Neurology did recommend outpatient cardiac monitoring to detect atrial fibrillation. The patient was discharged on 325 mg of aspirin, Lipitor 40 mg, carvedilol 3.125 mg twice daily, losartan 25 mg daily, spironolactone 12.5 mg daily. Does not have a primary care provider and so he is provided with a list of all the providers in the area and he was asked to contact them to set up an appointment for follow-up. - ALLERGIES Allergies/Adverse Reactions: Allergies Allergy/AdvReac Type Severity Reaction Status Date / Time No Known Drug Allergies Allergy Verified 10/23/19 07:28 - MEDICATIONS Home Medications: Ambulatory Orders Medication Instructions Recorded Confirmed Aspirin [Glory] 325 mg PO DAILYWM #30 tablet 10/25/19 Atorvastatin [Lipitor] 40 mg PO QPM #30 tablet 10/25/19 Losartan Potassium 25 mg PO QPM #30 tablet 10/25/19 Spironolactone [Aldactone] 12.5 mg PO 1200 #30 tablet 10/25/19 carvediloL [Coreg] 3.125 mg PO BID #60 tablet 10/25/19 - PHYSICAL EXAM AT DISCHARGE General Appearance: positive: No acute distress, Alert Eyes Bilateral: positive: Normal inspection ENT: positive: ENT inspection nml Neck: positive: Nml inspection Respiratory: positive: No respiratory distress. negative: Wheezes, Rales, Rhonchi Cardiovascular: positive: Regular rate & rhythm, No murmur. negative: Tachycardia, Bradycardia, Systolic murmur Abdomen: positive: Non-tender, No distention. negative: Tenderness, Guarding, Rebound Skin: positive: Warm, Dry Extremities: positive: Full ROM, No pedal edema Neurologic/Psychiatric: positive: Oriented x3, Motor nml, Sensation nml. negat elslie: Disoriented to person, Disoriented to place, Disoriented to time, Weakness - LABS Result Diagrams: 10/25/19 05:45 10/25/19 05:45 - DIAGNOSTIC IMAGING Diagnostic Imaging Results: Final report reviewed - FOLLOW UP Follow Up: He was provided with a list of primary care providers in the area and asked to make an appointment within 1 week for follow-up. - TIME SPENT Time Spent in Discharge (Minutes): 35"
[2019-10-25 12:20] LABS: HB2 TOTAL 15.1 g/dL; HEMOGLOBIN A1C 0.55 g/dL; HEMOGLOBIN A1C % 5.5 % (4.6-6.2)
--- NOTE | 2019-10-25 16:20 | ADVANCE CARE PLANNING NOTE ---
Advance Care Planning - Planning Encounter Date: 10/25/19 Time: 11:25 Purpose: Address goals of care Parties in Attendance: The patient and myself. Decisional Capacity of the Patient: He has ability to make his own medical decisions. - Encounter Subjective/Patient's Story: Patient lives here on [facility] with his . He states he is independent and is still quite physically active. He cuts down wood in his yard 3-4 times a day. He states he has been doing quite well from a health perspective and has not seen a physician in many years. He does not take any medications except for omega fatty acids. He reports he is quite happy with his quality of life. Lives with his who he states is also doing quite well from a health perspective. Objective/Medical Story: He was admitted to our hospital with left-sided weakness and numbness as well as ataxia. The concern was for stroke and unfortunately he did not present to 48 hours after presentation of his symptoms. Fortunately, the patient has had significant improvement in his neurologic status and is now back to baseline. He does not require rehab or physical therapy. Imaging did confirm acute right posterior cerebral artery infarct. Work-up during his hospitalization also revealed a cardiomyopathy with ejection fraction of 30% and a dilated left ventricle. This is a new diagnosis for the patient and took him by surprise as he is quite active and has no physical limitations. Goals of Care: The important thing for the patient is to continue to be physically active and continue to work in his yard and around the house. He felt that he was in excellent shape prior to his hospitalization and he currently feels back to his baseline. He is willing to do what he needs to in order to continue his current physical lifestyle Plan: Patient is quite happy with his current quality of life and he feels he has many years to live. He is agreeable to taking the prescribed medications and following up as needed on an outpatient basis with a primary care provider. We did discuss that he will likely need to be referred to a health technician hearing given his cardiomyopathy as he may require an ischemic work-up. Given he is quite active and has no physical limitations, he would like to be a full code at this time. Code Status: Attempt Resuscitation Time spent on advance care plannin
[2019-10-26] MEDS ORDERED: ASPIRIN 325 MG TABLET PO SCH (08:00)
== END 2019-10-25 13:59 | disposition home or self-care (01) | DRG 65 ==
LOC: ED 07:10 → MS2 13:47
PROVIDERS: ADMIT Internal Medicine; ATTEND Internal Medicine
DX: I63.531 Cerebral infarction due to unspecified occlusion or stenosis of right posterior cerebral artery (principal); I63.331 Cerebral infarction due to thrombosis of right posterior cerebral artery; G81.94 Hemiplegia, unspecified affecting left nondominant side; I50.810 Right heart failure, unspecified; R27.0 Ataxia, unspecified; R29.810 Facial weakness; R47.89 Other speech disturbances; R29.704 NIHSS score 4; H91.90 Unspecified hearing loss, unspecified ear
CPT/HCPCS: 36415; 70496; 70498; 70551; 71045; 80053; 80061; 83036; 83690; 83735; 83880; 84484; 85025; 85610; 85651; 92610; 93005; 93306; 93880; 96360; 97161; 97165; 99284; 99285; A9270; Q9967; 83721

== ENCOUNTER 2020-02-07 08:00 | Outpatient (CLI) | payer SELFPAY ==
[2020-02-07 11:42] LABS: BASOPHILS # (AUTO) 0.1 10^3/uL (0.0-0.1); BASOPHILS % (AUTO) 0.8 %; EOSINOPHILS # (AUTO) 0.2 10^3/uL (0.0-0.7); HGB - HEMOGLOBIN 13.9 g/dL (14.0-18.0); LYMPHOCYTES % (AUTO) 22.4 %; MEAN CORPUSCULAR HEMOGLOBIN 29.7 pg (27.0-31.0); MEAN CORPUSCULAR HGB CONC 32.6 g/dL (32.0-36.0); MEAN PLATELET VOLUME 9.3 fL (7.4-11.4); MONOCYTES # (AUTO) 0.6 10^3/uL (0.0-1.0); MONOCYTES % (AUTO) 6.4 %; NEUTROPHILS # (AUTO) 6.2 10^3/uL (1.5-6.6); NEUTROPHILS % (AUTO) 68.1 %; PLT - PLATELET COUNT 282 10^3/uL (130-450); RED BLOOD COUNT 4.68 10^6/uL (4.70-6.10); RED CELL DISTRIBUTION WIDTH 12.8 % (12.0-15.0); WHITE BLOOD COUNT 9.1 x10^3/uL (4.8-10.8)
[2020-02-07 12:15] LABS: ALBUMIN/GLOBULIN RATIO 1.3 (1.0-2.2); ALKALINE PHOSPHATASE 93 IU/L (42-121); ALT ALANINE AMINOTRANSFERASE 23 IU/L (10-60); AST ASPARTATE AMINOTRANSFERASE 17 IU/L (10-42); BILIRUBIN,TOTAL 0.9 mg/dL (0.2-1.0); BUN - BLOOD UREA NITROGEN 18 mg/dL (6-20); CALCIUM 9.4 mg/dL (8.5-10.3); CARBON DIOXIDE - CO2 27 mmol/L (21-32); CHLORIDE 105 mmol/L (101-111); CHOL/HDL RATIO 2.3 (<5.0); CHOLESTEROL 100 mg/dL; GLUCOSE 106 mg/dL (70-100); HDL CHOLESTEROL 44 mg/dL; LDL CHOLESTEROL,CALCULATED 48 mg/dL; LDL/HDL RATIO 1.1 (<3.6); SODIUM 140 mmol/L (135-145); TOTAL PROTEIN 7.2 g/dL (6.7-8.2); VLDL CHOLESTEROL 8 mg/dL
== END 2020-02-07 23:59 | disposition home or self-care (01) ==
LOC: LAB.WCP 08:00
PROVIDERS: ATTEND Physician Assistant Medical
DX: I50.9 Heart failure, unspecified (principal)
CPT/HCPCS: 36415; 80053; 80061; 83721; 85025

== ENCOUNTER 2020-02-22 10:14 | Outpatient (CLI) | payer SELFPAY | END 2020-02-22 10:15 | disposition home or self-care (01) | LOC: DI 10:14 | PROVIDERS: ATTEND Physician Assistant Medical | DX: I50.9 Heart failure, unspecified (principal); I35.8 Other nonrheumatic aortic valve disorders | CPT/HCPCS: 93306 ==

== ENCOUNTER 2020-05-20 04:32 | Outpatient (CLI) | payer SELFPAY | END 2020-05-20 04:33 | disposition critical access hospital (66) | LOC: EMS 04:32 | PROVIDERS: ATTEND Surgery | DX: R40.4 Transient alteration of awareness (principal) | CPT/HCPCS: A0425; A0427 ==

== ENCOUNTER 2020-05-20 05:11 | Emergency (ER) | payer SELFPAY ==
--- NOTE | 2020-05-20 05:15 | ED Physician Documentation ---
<Helena Masters Sumit - Last Filed: 05/20/20 11:30> PD HPI ALTERED MENTAL STATUS - Stated complaint Stated Complaint: AMS - Chief complaint Chief Complaint: Neuro PD PAST MEDICAL HISTORY - Present Medications Home Medications: Ambulatory Orders Medication Instructions Recorded Confirmed Atorvastatin [Lipitor] 40 mg PO QPM #30 tablet 10/25/19 05/20/20 carvediloL [Coreg] 3.125 mg PO BID #60 tablet 10/25/19 05/20/20 - Allergies Allergies/Adverse Reactions: Allergies Allergy/AdvReac Type Severity Reaction Status Date / Time No Known Drug Allergies Allergy Verified 05/20/20 06:22 Departure - Departure Disposition: 02 Transfer Acute Care Hosp Clinical Impression: New onset a-fib, Status epilepticus Condition: Stable Discharge Date/Time: 05/20/20 14:00 <Beto Maya - Last Filed: 05/21/20 06:57> PD HPI ALTERED MENTAL STATUS - History obtained from History obtained from: Family, EMS - History of Present Illness Timing - onset: Enter time (04:30), Today Timing - details: Abrupt onset Quality / character: Unresponsive Associated symptoms: Seizure activity Contributing factors: Recent med change ( says patient stopped taking his medications approximately 1 month ago). No: Anticoagulated, Recent illness, Recent injury Basline status: Alert and oriented X 3, Ambulatory, Independent Similar symptoms before: Has not had sx before Recently seen: Not recently seen - Additional information Additional information: Patient unable to contribute to HPI/ROS due to severely altered mental status. HPI from EMS and . Last known normal was approximately 10 PM last night when last saw patient before they went to bed. says she was woken at approximately 4:30 AM this morning due to loud breathing from patient; she found patient to be unresponsive and thus she called 911. EMS arrived to find patient unresponsive with left gaze deviation. Early in their evaluation patient exhibited seizure activity and thus EMS gave 2mg Versed IV with cessation of seizure activity. They estimate seizure activity lasted approximately 30 seconds. On ED arrival, he is unresponsive, sent directly to [place] Review of Systems Unable to obtain: AMS PD PAST MEDICAL HISTORY - Past Medical History Cardiovascular: None Respiratory: None Neuro: CVA Endocrine/Autoimmune: None : Benign prostate hypertrophy, Retention Psych: None Musculoskeletal: None - Social History Does the pt smoke?: No Smoking Status: Unknown if ever smoked Does the pt drink ETOH?: No Does the pt have substance abuse?: No - Immunizations Immunizations: TDAP >10years/unknown PD ED PE NORMAL - Vitals Vital signs reviewed: Yes - General General: Well developed/nourished - HEENT HEENT: Atraumatic, Moist mucous membranes - Neck Neck: Supple, no meningeal sign - Cardiac Cardiac: No murmur - Respiratory Respiratory: No respiratory distress, Clear bilaterally - Abdomen Abdomen: Soft, Non distended - Derm Derm: Normal color, Warm and dry - Extremities Extremities: No edema PD ED PE EXPANDED - General General: Unresponsive - Cardiac Cardiac: Tachy, Irregularly irregular - Neuro Neuro: Unresponsive, Other (left lateral gaze) - GCS Eye Opening: None Motor: Withdraws to Pain Verbal: None Total: 6 Results - Vitals Vitals: Vital Signs - 24 hr 05/20/20 05/20/20 05/20/20 07:00 07:16 07:46 Temperature 36.6 C Heart Rate 162 H 55 L 142 H Respiratory 30 H 23 16 Rate Blood Pressure 155/91 H 153/132 H 125/90 H O2 Saturation 95 92 100 05/20/20 05/20/20 05/20/20 07:47 08:40 09:12 Temperature 37.2 C Heart Rate 144 H 117 H Respiratory 14 14 Rate Blood Pressure 130/83 H O2 Saturation 100 100 05/20/20 05/20/20 05/20/20 10:10 11:56 12:36 Temperature 37.4 C Heart Rate 92 92 Respiratory 14 14 Rate Blood Pressure 130/64 121/74 O2 Saturation 100 100 05/20/20 05/20/20 05/20/20 13:00 13:29 14:00 Temperature Heart Rate 83 82 87 Respiratory 16 16 14 Rate Blood Pressure 125/77 116/68 119/81 H O2 Saturation 99 100 99 Oxygen O2 Source Room air - EKG (time done) No standard instances Rate: Rate (enter#) (161) Rhythm: Atrial fibrillation [place]: Normal Ischemia: ST depression (V4-V5) - Labs Labs: Laboratory Tests 05/20/20 05/20/20 05/20/20 05:55 05:55 05:55 WBC 14.5 H RBC 5.03 Hgb 15.0 Hct 47.0 MCV 93.4 MCH 29.8 MCHC 31.9 L RDW 13.2 Plt Count 318 MPV 8.9 Neut # (Auto) 11.2 H Lymph # (Auto) 2.5 [place] # (Auto) 0.4 Eos # (Auto) 0.1 Baso # (Auto) 0.1 Absolute Nucleated RBC 0.00 Nucleated RBC % 0.0 PT 11.9 INR 1.1 APTT 27.9 Sodium 137 Potassium 4.1 Chloride 104 Carbon Dioxide 14 L Anion Gap 19.0 H BUN 19 Creatinine 1.5 H Estimated GFR (MDRD) 45 L Glucose 220 H Calcium 9.2 Total Bilirubin 0.6 AST 29 ALT 21 Alkaline Phosphatase 97 Troponin I High Sens Total Protein 7.1 Albumin 4.0 Globulin 3.1 Albumin/Globulin Ratio 1.3 Lipase 33 Nasal Adenovirus (PCR) Nasal B. parapertussis DNA (PCR) Nasal Coronavir 229E PCR Nasal Coronavir HKU1 PCR Nasal Coronavir NL63 PCR Nasal Coronavir OC43 PCR Nasal Enterovir/Rhinovir PCR Nasal Influenza B PCR Nasal Influenza A PCR Nasal Parainfluen 1 PCR Nasal Parainfluen 2 PCR Nasal Parainfluen 3 PCR Nasal Parainfluen 4 PCR Nasal RSV (PCR) Nasal B.pertussis DNA PCR Nasal C.pneumoniae (PCR) Mian Human Metapneumo PCR Nasal M.pneumoniae (PCR) Nasal SARS-CoV-2 (PCR) 05/20/20 05/20/20 05:55 12:00 WBC RBC Hgb Hct MCV MCH MCHC RDW Plt Count MPV Neut # (Auto) Lymph # (Auto) [place] # (Auto) Eos # (Auto) Baso # (Auto) Absolute Nucleated RBC Nucleated RBC % PT INR APTT Sodium Potassium Chloride Carbon Dioxide Anion Gap BUN Creatinine Estimated GFR (MDRD) Glucose Calcium Total Bilirubin AST ALT Alkaline Phosphatase Troponin I High Sens 10.0 Total Protein Albumin Globulin Albumin/Globulin Ratio Lipase Nasal Adenovirus (PCR) NOT DETECTED Nasal B. parapertussis DNA (PCR) NOT DETECTED Nasal Coronavir 229E PCR NOT DETECTED Nasal Coronavir HKU1 PCR NOT DETECTED Nasal Coronavir NL63 PCR NOT DETECTED Nasal Coronavir OC43 PCR NOT DETECTED Nasal Enterovir/Rhinovir PCR NOT DETECTED Nasal Influenza B PCR NOT DETECTED Nasal Influenza A PCR NOT DETECTED Nasal Parainfluen 1 PCR NOT DETECTED Nasal Parainfluen 2 PCR NOT DETECTED Nasal Parainfluen 3 PCR NOT DETECTED Nasal Parainfluen 4 PCR NOT DETECTED Nasal RSV (PCR) NOT DETECTED Nasal B.pertussis DNA PCR NOT DETECTED Nasal C.pneumoniae (PCR) NOT DETECTED Mian Human Metapneumo PCR NOT DETECTED Nasal M.pneumoniae (PCR) NOT DETECTED Nasal SARS-CoV-2 (PCR) NOT DETECTED - Rads (name of study) CT head Radiology: Prelim report reviewed, See rad report CTA head Radiology: Prelim report reviewed, See rad report CTA neck Radiology: Prelim report reviewed, See rad report CXR Radiology: Prelim report reviewed, See rad report PD MEDICAL DECISION MAKING - ED course Complexity details: reviewed old records, reviewed results, re-evaluated patient, considered differential, d/w family ED course: CTH performed but delay in obtaining CTA head/neck due to extravasation requiring insertion of a new IV. I consulted telestroke service, d/w Dr. Tilley. He reviewed the CTH and awaiting CTA images. Shortly after returning from CT, patient began to exhibit some purposeful movement of his RUE (appears to be trying to remove his mask), but also began to exhibit seizure-like activity in LUE (rhythmic twitching of his hand). This progressed to rhythmic twitching of his LLE as well. I recontacted Dr. Tilley and he recommends IV keppra 4 grams. I repeated the dose of 4 grams of keppra IV back to him and he confirms this is his recommended medication and dose. He reviewed the CTA head and neck and there is no evidence of LVO (radiology interpretation is "high grade narrowing of the proximal to mid right posterior cerebral artery; Dr. Tilley notes that this is in the same area as previous CVA (October 2019), and he again notes no acute findings including no evidence of LVO). Dr. Tilley recommends admission for EEG. I discussed these findings and recommendations with the . She asked that I discuss this with the patient's son and daughter in the waiting room. I did so, and I included the possibility that patient might need to be intubated for airway protection, as he was still seizing despite ativan and keppra. Patient's daughter and patient's spouse tell me that they do not want the patient aldrich sferred due to cost concerns. They also both tell me that patient has said he would not want to be on a ventilator nor have CPR in the event of cardiac/pulmonary arrest. I explained that intubation in this case (status epilepticus) would be intended as a temporary measure until the seizures can be controlled and he protects his airway, but they tell me they do not want him to be intubated. They also express concern that the measures currently being taken are just to prolong inevitable ; I explained that his prognosis is uncertain at this point and would depend on further testing such as EEG and further observation regarding response to the medications. I discussed the case with the portable feed mill operator at [facility], Dr. Lee. She is willing to accept transfer but recommends intubation due to his ongoing seizure activity. She says patient's code status needs to be clarified with the family and that if he is DNR/DNI, transfer without intubation could be considered but that it would also be reasonable to admit to [facility] and administer repeat doses of benzodiazepine such as lorazepam to see if seizures can be controlled with this measure along with the keppra. After a second dose of 1mg IV atrivan and completion of keppra 4gm IV, patient stopped seizing and was protecting his airway. He continued to have JANE but without hypotension. D/W Dr. Elizalde who will admit patient to [facility]. Dr. Elizalde then noted in previous record from October 2019 that patient had verbalized he was full code. Dr. Elizalde had licensed master social worker come to talk with patient's spouse. At this point I turned care of patient over to Dr. Baez.
[2020-05-20] MEDS ORDERED: IOVERSOL 320 100 ML VIAL IVP ONE ×2 (05:36→06:56)
[2020-05-20 06:10] LABS: BASOPHILS # (AUTO) 0.1 10^3/uL (0.0-0.1); BASOPHILS % (AUTO) 0.7 %; EOSINOPHILS # (AUTO) 0.1 10^3/uL (0.0-0.7); EOSINOPHILS % (AUTO) 0.8 %; LYMPHOCYTES # (AUTO) 2.5 10^3/uL (1.5-3.5); MEAN CORPUSCULAR HEMOGLOBIN 29.8 pg (27.0-31.0); MEAN CORPUSCULAR HGB CONC 31.9 g/dL (32.0-36.0); MEAN CORPUSCULAR VOLUME 93.4 fL (80.0-94.0); MEAN PLATELET VOLUME 8.9 fL (7.4-11.4); MONOCYTES # (AUTO) 0.4 10^3/uL (0.0-1.0); MONOCYTES % (AUTO) 2.9 %; NEUTROPHILS # (AUTO) 11.2 10^3/uL (1.5-6.6); NEUTROPHILS % (AUTO) 77.6 %; PLT - PLATELET COUNT 318 10^3/uL (130-450); RED BLOOD COUNT 5.03 10^6/uL (4.70-6.10); RED CELL DISTRIBUTION WIDTH 13.2 % (12.0-15.0); WHITE BLOOD COUNT 14.5 x10^3/uL (4.8-10.8)
[2020-05-20] MEDS ORDERED: SODIUM CHLORIDE 0.9% 1,000 ML IV STA (06:18)
[2020-05-20 06:21] LABS: INR 1.1 (0.8-1.2); PT - PROTHROMBIN TIME 11.9 secs (9.9-12.6)
[2020-05-20] MEDS ORDERED: levETIRAcetam INJ 1,000 MG in SODIUM CHLORIDE 0.9% 100ML 100 ML IV STA (06:23)
[2020-05-20 06:26] LABS: ALBUMIN/GLOBULIN RATIO 1.3 (1.0-2.2); BILIRUBIN,TOTAL 0.6 mg/dL (0.2-1.0); CALCIUM 9.2 mg/dL (8.5-10.3); CREATININE 1.5 mg/dL (0.6-1.2); TOTAL PROTEIN 7.1 g/dL (6.7-8.2)
[2020-05-20] MEDS ORDERED: diltiaZEM INJ 5 MG/ML VIAL IVP STA ×2 (06:27→08:44)
[2020-05-20 06:35] LABS: PARTIAL THROMBOPLASTIN TIME 27.9 secs (24.9-33.3)
[2020-05-20] MEDS ORDERED: levETIRAcetam INJ 3,000 MG in SODIUM CHLORIDE 0.9% 100ML 100 ML IV STA (06:42)
[2020-05-20] MEDS ORDERED: LORazepam 2 MG/ML VIAL IVP STA ×4 (06:46→12:25)
--- NOTE | 2020-05-20 08:08 | XRAY Report ---
PROCEDURE: Chest 1 View X-Ray INDICATIONS: AMS TECHNIQUE: One view of the chest was acquired. COMPARISON: 10/24/2019. Correlation is also made with the accompanying head and neck CT angiograms, 1 07/21/2019. FINDINGS: Surgical changes and devices: None. Lungs and pleura: On the semiupright images, no large pneumothorax or large pleural effusions can be seen. No focal infiltrates are seen. Mediastinum: The aorta is prominent and tortuous. The cardiac contours are within normal limits. Bones and chest wall: No suspicious bony lesions. Age-appropriate degenerative changes are seen. Overlying soft tissues appear unremarkable. IMPRESSION: Unremarkable portable chest for age. Note: No significant discrepancy from the preliminary report. Reviewed by: Madhu Acevedo MD on 05/20/2020 7:07 AM [facility] Approved by: Madhu Acevedo MD on 05/20/2020 7:07 AM [facility] Station ID: [id number]
--- NOTE | 2020-05-20 08:20 | CT Report ---
PROCEDURE: Head W/O Stroke Protocol INDICATIONS: AMS TECHNIQUE: Noncontrast 4.5 mm thick angled axial sections acquired from the foramen magnum to the vertex, with c oronal reformats. For radiation dose reduction, the following was used: automated exposure control, adjustment of mA and/or kV according to patient size. COMPARISON: FINDINGS: Image quality: Excellent. CSF spaces: Basal cisterns are patent. No extra-axial fluid collections. Ventricles are normal in size and shape. 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 No midline shift. No intracranial masses or hemorrhage. Mild cerebral volume loss. Tkdn-hd-briozrmv periventricular white matter chronic small vessel ischemic changes are present.. Skull and face: Calvarium and visualized facial bones are intact, without suspicious lesions. Sinuses: There is mucosal thickening in the right maxilla sinus. Mastoids are clear. IMPRESSION: 1. No acute intracranial abnormality. 2. Old right occipital infarct. 3. Mild cerebral volume loss and microvascular ischemic changes. 4. Right maxillary sinusitis. This study fulfills neurological imaging criteria for inclusion or exclusion of acute stroke therapie s based on available published neurological imaging guidelines. No significant discrepancy with the preliminary interpretation. Reviewed by: Oneil Madrid MD on 05/20/2020 8:19 AM PST Approved by: Oneil Madrid MD on 05/20/2020 8:19 AM PST Station ID: [id number]
[2020-05-20] MEDS ORDERED: diltiaZEM INJ 5 MG/ML VIAL ONE (08:54)
[2020-05-20] MEDS ORDERED: diltiaZEM INJ 125 MG in DEXTROSE 5% 100 ML IV STA (09:27)
[2020-05-20] MEDS ORDERED: ASPIRIN 300 MG SUPP PR STA (09:57)
--- NOTE | 2020-05-20 11:42 | CT Report ---
PROCEDURE: ANGIO HEAD W/WO INDICATIONS: AMS CONTRAST: IV CONTRAST: Optiray 320 ml: 80 PO CONTRAST: *NO PO CONTRAST TECHNIQUE: Precontrast 4.5 mm thick angled axial sections acquired from the foramen magnum to the vertex. Afte r the administration of intravenous contrast, 1 mm thick sections acquired through the [place] of [place] is. Postcontrast 4.5 mm thick sections then re-acquired from the foramen magnum to the vertex. 3-di mensional shtmtoa-xvktwxvwb-klfsgizczt (MIP) and/or volume rendering reformats were acquired of the c entral intracranial vasculature. For radiation dose reduction, the following was used: automated ex posure control, adjustment of mA and/or kV according to patient size. COMPARISON: CT angiogram head, 10/23/2019. FINDINGS: Image quality: Excellent. Anterior circulation: Intracranial internal carotid arteries are normal in size and flow. The flow within the paired anterior cerebral arteries is normal and symmetric. The flow within the middle cer ebral arteries is normal and symmetric. The anterior communicating artery is seen. No aneurysms are seen. Posterior circulation: Visualized portions of the vertebral arteries demonstrate normal caliber, and join to form a normal appearing basilar artery. There is bkdxjxpm-ph-bzti grade focal narrowing of t he mid right posterior cerebral artery. Left vertebral artery is normal in caliber. No aneurysms are seen. CSF spaces: Ventricles are normal in size and shape. Basal cisterns are patent. No extra-axial flu id collections. Brain: No midline shift. No intracranial bleeds or masses. [place]-white matter interface appears int act. Skull and face: Calvarium and facial bones appear intact, without suspicious lesions. Sinuses: Visualized sinuses and mastoids are clear. IMPRESSION: 1. Erazmqws-st-gzhw grade focal narrowing of the mid right posterior cerebral artery. 2. No significant stenosis or occlusion in anterior circulation. No significant discrepancy with the preliminary report. Reviewed by: Oneil Madrid MD on 05/20/2020 11:40 AM PST Approved by: Oneil Madrid MD on 05/20/2020 11:40 AM PST Station ID: [id number]
--- NOTE | 2020-05-20 11:45 | CT Report ---
PROCEDURE: ANGIO NECK W INDICATIONS: AMS CONTRAST: IV CONTRAST: Optiray 320 ml: 80 PO CONTRAST: *NO PO CONTRAST TECHNIQUE: After the administration of intravenous contrast, 1.5 mm axial sections acquired from the aortic arch to the [place] of Vo. Coronal 3-D maximum intensity projection (MIP) and/or volume rendering ref ormats were then performed. For radiation dose reduction, the following was used: automated exposur e control, adjustment of mA and/or kV according to patient size. COMPARISON: None. FINDINGS: Image quality: Excellent. Carotid system: The great vessels demonstrate a conventional anatomy as they arise [facility]. The origins of the common carotid arteries appear patent. The common carotid arteries demonstr ate normal calibers and courses. The bifurcation regions appear normal bilaterally. The internal ca rotid arteries demonstrate normal caliber and course. Posterior circulation: The origins of the vertebral arteries appear patent. The more superior porti ons of the vertebral arteries demonstrate normal course and caliber. They join to form a normal appe aring basilar artery. Soft tissues: Visualized neck soft tissues demonstrate no suspicious abnormalities. The thyroid gla nd is normal in size. Bones: No suspicious bony lesions. Severe degenerative changes in cervical spine. IMPRESSION: 1. No significant stenosis or occlusion in cervical carotid arteries or vertebral arteries. No significant discrepancy with the preliminary interpretation. The estimate of stenosis included in the report of the imaging study was calculated using the NASCET method Reviewed by: Oneil Madrid MD on 05/20/2020 11:43 AM PST Approved by: Oneil Madrid MD on 05/20/2020 11:43 AM PST Station ID: [id number]
[2020-05-20] MEDS ORDERED: LORazepam 2 MG/ML VIAL ONE (12:29)
[2020-05-20 13:04] LABS: C. PNEUMONIAE- RESP PCR PANEL NOT DETECTED
[2020-05-20 14:16] VITALS: BP 119/81
--- NOTE | 2020-05-20 15:26 | CONSULTATION NOTE ---
DATE OF SERVICE: 05/20/2020 Physician: Mendy Elizalde MD HISTORY OF PRESENT ILLNESS: This is an 79-year-old white male who had a negative past medical history until October 2019 when he presented with left-sided weakness, was admitted for TIA versus stroke. He had eventual resolution of his symptoms entirely. The inpatient workup with an Echo showed evidence of global hypokinesis with an LVEF of 35% and he was admitted from Observation status then to inpatient status to initiate medication for new diagnosis of cardiomyopathy. The patient at that time did not have a PCP. He established with a PCP but apparently refused to be seen by a oil sprayer, according to the . There was another Echo that was done several months later, ordered by the PCP, that shows LVEF improved slightly to 40%. The states that about 1 month ago, he stopped all his medications because they "did not agree with him." The patient presents to the ER by ambulance now with alteration mental status and new onset of atrial fibrillation with rapid ventricular rate. Apparently, he went to sleep at 10 p.m. last night, as his last known well, and at about 04:30 this morning, the heard him snoring and breathing, not the way he normally does and she tried to arouse him and he was unresponsive. She called 911 and the EMS people witnessed him to have a seizure and he was given 2 mg of Versed. He was brought to the emergency room and was still seizing. There was also left gaze deviation described by the emergency room provider and possibly posturing. The patient went directly to have a CTA of the head and neck and also CT of the head and this showed a high-grade stenosis in the right posterior cerebral artery, where the old right-sided brain lesion was, during the stroke in October 2019. The emergency room doctor called Neurology several times and Neurology reviewed his images and recommended that he receive Keppra. He still had left-sided twitching movements consistent with status epilepticus, therefore he also received IV Ativan, which eventually helped resolve any of the twitching and seizure-like activity. He also was given IV diltiazem for management of his atrial fibrillation with a rapid rate. The [facility] Scientific Manager was also contacted to potentially have him transferred for further management, in critical status including new seizures, with status epilepticus and with new onset of atrial fibrillation with RVR and possibly a new stroke in the same distribution as the one in October 2019. The emergency room doctor then spoke to the spouse, who declined to have him transferred and also went on to say that the patient should not have any CPR and should not be intubated. The reason for not wanting to transfer was the cost of the ambulance. The emergency room doctor reached out to the Hospitalist Team to have him admitted here. I reviewed his records and then examined the patient in the emergency room. In the October 2019 hospitalization, the patient had a discussion with the Hospitalist then, and an Advanced Care Plan was documented. In that plan, the patient described that he leads a good life, is active, chops wood, enjoys working around his house outside and was very surprised that he had findings of a cardiomyopathy on workup then, because he "felt fine." The patient did agree to take all of his medications. The patient indicated he wanted everything done to continue to live a long life. PAST MEDICAL HISTORY: Stroke, cardiomyopathy, medication noncompliance one month ago. ALLERGIES: NONE. MEDICATIONS: None. FAMILY HISTORY: Noncontributory at this advanced age. SOCIAL HISTORY: The patient has no history of alcohol abuse and does not smoke, he lives with his . REVIEW OF SYSTEMS: This was obtained from chart review and speaking to the . The pertinent positives are listed above, the rest are negative. PHYSICAL EXAM GENERAL: Obtunded white male. He has some purposeful movements of the right leg and moves his neck. He is on a Ventimask. VITAL SIGNS: Blood pressure 130/64, heart rate 90-110 in atrial fibrillation, oxygen saturation was 96% on 2 liters nasal cannula. He is afebrile. HEENT: Reveals that his eyes are closed and he is obtunded, there is no twitching and he does have some movement of the right leg, which is spontaneous. Oral mucosa moist. NECK: No JVD or carotid bruits. CHEST: Clear. HEART: Irregularly irregular and tachycardic. No murmurs are heard. No rub. ABDOMEN: Soft. No organomegaly. EXTREMITIES: No clubbing, cyanosis or edema. NEUROLOGIC: As described above. LABORATORY DATA: Normal electrolytes. Carbon dioxide 14, anion gap 19, BUN 19, creatinine 1.5, troponin high sensitivity is 10, lipase 33, normal liver tests. White blood count 14.5, hemoglobin 15, platelet count 318, INR 1.1. Viral testing was done, and there is no evidence of COVID. EKG: Atrial fibrillation with a rapid rate of 161, possible LVH voltage, diffuse nonspecific ST and T-wave changes. IMAGING: Chest x-ray: unremarkable portable chest exam for age. Head CT: No acute intracranial abnormality, but an old right occipital infarct is seen and mild cerebral volume loss. Head CTA and neck CTA: There is no midline shift, there is moderate to high- grade focal narrowing of the right posterior cerebral artery and no occlusions in the anterior circulation. IMPRESSION/DIAGNOSES 1. Status epilepticus. 2. New onset seizures. 3. Acute CVA, possible, left-sided, and this current or old CVA may be a focus for the new seizure activity. 4. History of cardiomyopathy. 5. Medication noncompliance. 6. Elevated white blood count, this could be a phase reactant from the stress of this event as no obvious source of an infection is noted. 7. Acute kidney injury, with elevation of creatinine. RECOMMENDATIONS: I spoke to the at bedside regarding the decision to have no transfer or be a DNR/DNI given the fact that we had documentation that he himself said he wants everything done and wants to continue to live a fruitful life. The eventually did admit to me that the reason for not wanting a transfer was cost, stating that he only had Medicare A health insurance. She also said that if he should be a vegetable that he would not want to live that way. I discussed with her that there is no way to determine if he is yet going to be incapacitated, given his current condition since people with seizures can have them controlled on medications and also he may again recover from a stroke. The daughter and son-in-law had been at the bedside earlier, but had left and I asked the if I could contact the family members for any further details regarding choice of no transfer for higher level of care with specialists, even in this critical condition. I was able to reach the daughter Monica Oliva at and also her , the patient's son-in-law was on the phone call. I described that this patient is in critical condition and would be best served transferring to a facility with higher level of care where they have Neurologist, Interventional Radiologist to possibly manage intracerebral vascular interventions, Cardiology for his new onset atrial fibrillation and the history of cardiomyopathy and an Scientific Manager. The daughter stated that she did not want her mother burdened with a high out [id number] cost. The son-in-law, however, stated that if there was a chance the patient could have recovery, then they would "talk their father into taking medications that are needed." Both the daughter and son-in-law stated that the decision was ultimately up to the patient's spouse. I contacted Social Work and also asked Utilization Review staff to evaluate this patient's status regarding financial needs and health insurance coverage. The Records Management Engineer was referred to go see the in consult, to discuss that his best option would be a transfer for higher level of care, given his critical status and discuss her concerns. The SW did that and the then decided to agree to have him transferred. The emergency room was able to get him accepted in transfer to [facility]. Thank you for allowing me to participate in the care of this patient. TD: 05/20/2020 14:11 LO
== END 2020-05-20 14:00 | disposition short-term general hospital (02) ==
LOC: EDUNIT# → ED 05:11
DX: G40.901 Epilepsy, unspecified, not intractable, with status epilepticus (principal); I48.91 Unspecified atrial fibrillation; Z86.73 Personal history of transient ischemic attack (TIA), and cerebral infarction without residual deficits; N17.9 Acute kidney failure, unspecified; Z20.828 Contact with and (suspected) exposure to other viral communicable diseases; J01.00 Acute maxillary sinusitis, unspecified; I42.9 Cardiomyopathy, unspecified; Z91.14 Patient's other noncompliance with medication regimen
CPT/HCPCS: 0202U; 36415; 51702; 70450; 70496; 70498; 71045; 80053; 83690; 84484; 85025; 85610; 85730; 93005; 96365; 96366; 96367; 96375; 96376; 99285; A9270; J2060; Q9967

== ENCOUNTER 2020-05-20 14:01 | Outpatient (CLI) | payer SELFPAY | END 2020-05-20 23:59 | disposition short-term general hospital (02) | LOC: EMS 14:01 | PROVIDERS: ATTEND Surgery | DX: G40.901 Epilepsy, unspecified, not intractable, with status epilepticus (principal); I48.91 Unspecified atrial fibrillation | CPT/HCPCS: A0425; A0426 ==

== ENCOUNTER 2021-01-29 08:23 | Outpatient (CLI) | payer MEDICARE ==
[2021-01-29 13:21] LABS: BASOPHILS # (AUTO) 0.1 10^3/uL (0.0-0.1); BASOPHILS % (AUTO) 0.8 %; EOSINOPHILS # (AUTO) 0.2 10^3/uL (0.0-0.7); EOSINOPHILS % (AUTO) 2.8 %; HCT - HEMATOCRIT 40.9 % (42.0-52.0); HGB - HEMOGLOBIN 13.7 g/dL (14.0-18.0); LYMPHOCYTES # (AUTO) 1.8 10^3/uL (1.5-3.5); LYMPHOCYTES % (AUTO) 27.7 %; MEAN CORPUSCULAR HEMOGLOBIN 30.1 pg (27.0-31.0); MEAN CORPUSCULAR HGB CONC 33.5 g/dL (32.0-36.0); MEAN CORPUSCULAR VOLUME 89.9 fL (80.0-94.0); MEAN PLATELET VOLUME 9.8 fL (7.4-11.4); MONOCYTES # (AUTO) 0.4 10^3/uL (0.0-1.0); MONOCYTES % (AUTO) 6.8 %; NEUTROPHILS % (AUTO) 61.6 %; PLT - PLATELET COUNT 342 10^3/uL (130-450); RED BLOOD COUNT 4.55 10^6/uL (4.70-6.10); RED CELL DISTRIBUTION WIDTH 13.8 % (12.0-15.0); WHITE BLOOD COUNT 6.5 x10^3/uL (4.8-10.8)
[2021-01-29 13:35] LABS: ALBUMIN 4.1 g/dL (3.2-5.5); ALBUMIN/GLOBULIN RATIO 1.5 (1.0-2.2); ALKALINE PHOSPHATASE 99 IU/L (42-121); ALT ALANINE AMINOTRANSFERASE 12 IU/L (10-60); AST ASPARTATE AMINOTRANSFERASE 12 IU/L (10-42); BILIRUBIN,TOTAL 0.7 mg/dL (0.2-1.0); BUN - BLOOD UREA NITROGEN 33 mg/dL (6-20); CALCIUM 9.2 mg/dL (8.5-10.3); CARBON DIOXIDE - CO2 26 mmol/L (21-32); CHLORIDE 106 mmol/L (101-111); CHOL/HDL RATIO 6.3 (<5.0); CHOLESTEROL 190 mg/dL; CREATININE 1.5 mg/dL (0.6-1.2); GFR - MDRD 45 (>89); GLUCOSE 98 mg/dL (70-100); HDL CHOLESTEROL 30 mg/dL; LDL CHOLESTEROL,CALCULATED 141 mg/dL; LDL/HDL RATIO 4.7 (<3.6); POTASSIUM 4.3 mmol/L (3.5-5.0); SODIUM 140 mmol/L (135-145); TOTAL PROTEIN 6.9 g/dL (6.7-8.2); TRIGLYCERIDES 94 mg/dL; VLDL CHOLESTEROL 19 mg/dL
[2021-01-29 13:45] LABS: THYROID STIMULATING HORMONE 0.85 uIU/mL (0.34-5.60)
== END 2021-01-29 08:24 | disposition home or self-care (01) ==
LOC: LAB.N 08:23
PROVIDERS: ATTEND Physician Assistant Medical
DX: I10 Essential (primary) hypertension (principal); I63.9 Cerebral infarction, unspecified; R56.9 Unspecified convulsions; I48.0 Paroxysmal atrial fibrillation
CPT/HCPCS: 36415; 80053; 80061; 80177; 83721; 84443; 85025

== ENCOUNTER 2021-04-13 12:05 | Outpatient (CLI) | payer MEDICARE | END 2021-04-13 12:06 | disposition critical access hospital (66) | LOC: EMS 12:05 | DX: R47.9 Unspecified speech disturbances (principal); R26.2 Difficulty in walking, not elsewhere classified; R25.3 Fasciculation; R56.9 Unspecified convulsions | CPT/HCPCS: A0425; A0427 ==

== ENCOUNTER 2021-04-13 12:25 | Inpatient (IN) | payer MEDICARE ==
[2021-04-13] MEDS ORDERED: levETIRAcetam INJ 500 MG in SODIUM CHLORIDE 0.9% 100ML 100 ML IV STA (12:34)
[2021-04-13] MEDS ORDERED: LORazepam 2 MG/ML VIAL IVP STA ×2 (12:34→16:37)
--- NOTE | 2021-04-13 12:34 | ED Physician Documentation ---
History of Present Illness - Stated complaint Stated Complaint: SEIZURE - History obtained from History obtained from: EMS - Additonal information Additional information: This is an 80-year-old gentleman presents by ambulance for seizure activity. In October 2019 he had a right posterior cerebral infarct, and in May 2020 he was seen here for left upper extremity seizures with status. He is on Keppra. He was transferred to [facility] at that time. Today he was last seen normal around 7:30 AM. The family returned around 8:30 AM and he was acting oddly. He is having left upper extremity lmore than left lower extremity twitching with grand mal seizure. He is minimally responsive on arrival and had received 2 mg of Versed in route. Review of Systems Unable to obtain: AMS, Confused PD PAST MEDICAL HISTORY - Past Medical History Cardiovascular: None Respiratory: None Neuro: CVA Endocrine/Autoimmune: None : Benign prostate hypertrophy, Retention Psych: None Musculoskeletal: None - Present Medications Home Medications: Ambulatory Orders Medication Instructions Recorded Confirmed Atorvastatin [Lipitor] 40 mg PO QPM #30 tablet 10/25/19 05/20/20 carvediloL [Coreg] 3.125 mg PO BID #60 tablet 10/25/19 04/13/21 Apixaban [Eliquis] 1 tab PO DAILY 04/13/21 04/13/21 Finasteride [Proscar] 5 mg PO DAILY 04/13/21 04/13/21 Levetiracetam [Keppra Xr] 2 tab PO DAILY #60 tab 04/13/21 Lisinopril [Zestril] 1 tab PO DAILY 04/13/21 04/13/21 Tamsulosin [Flomax] 1 tab PO DAILY 04/13/21 04/13/21 - Allergies Allergies/Adverse Reactions: Allergies Allergy/AdvReac Type Severity Reaction Status Date / Time No Known Drug Allergies Allergy Verified 04/13/21 12:38 - Social History Does the pt smoke?: No Smoking Status: Unknown if ever smoked Does the pt drink ETOH?: No Does the pt have substance abuse?: No - Immunizations Immunizations: TDAP >10years/unknown PD ED PE NORMAL - Vitals Vital signs reviewed: Yes - General General: Well developed/nourished, Other (He will awaken to vigorous stimulus and has disconjugate gaze. He has rhythmic activity in the left upper extremity. This is consistent with focal seizure.) - HEENT HEENT: Other (Pupils are equal, seems to respond and look to the right better than the left) - Neck Neck: Supple, no meningeal sign, No bony TTP - Cardiac Cardiac: RRR, No murmur - Respiratory Respiratory: No respiratory distress, Clear bilaterally - Abdomen Abdomen: Normal bowel sounds, Soft, Non tender - Back Back: No CVA TTP, No spinal TTP - Derm Derm: Normal color, Warm and dry - Extremities Extremities: No edema, No calf tenderness / cord - Neuro Neuro: Other (He is not responsive except to vigorous stimulus in which case he will open his eyes and mumble. He has rhythmic twitching of the left upper extremity consistent with focal seizure. He does not seem to respond to pain in any extremity.) Eye Opening: To Voice Motor: Abnormal Flexion Verbal: Incomprehensible GCS Score: 8 Results - Vitals Vitals: Vital Signs - 24 hr 04/13/21 04/13/21 04/13/21 12:26 12:38 13:46 Temperature 36.5 C Heart Rate 92 95 72 Respiratory 22 17 20 Rate Blood Pressure 147/95 H 147/95 H 147/95 H O2 Saturation 98 98 99 04/13/21 04/13/21 16:17 17:01 Temperature Heart Rate 96 91 Respiratory 20 16 Rate Blood Pressure 147/98 H 106/94 H O2 Saturation 97 100 Oxygen O2 Source Room air - Labs Labs: Laboratory Tests 04/13/21 04/13/21 13:10 13:10 WBC 9.1 RBC 4.29 L Hgb 13.2 L Hct 39.6 L MCV 92.3 MCH 30.8 MCHC 33.3 RDW 13.0 Plt Count 299 MPV 9.0 Neut # (Auto) 8.0 H Lymph # (Auto) 0.7 L Sabine # (Auto) 0.3 Eos # (Auto) 0.0 Baso # (Auto) 0.1 Absolute Nucleated RBC 0.00 Nucleated RBC % 0.0 Sodium 139 Potassium 3.6 Chloride 107 Carbon Dioxide 22 Anion Gap 10.0 BUN 26 H Creatinine 1.2 Estimated GFR (MDRD) 58 L Glucose 130 H Calcium 8.9 Magnesium 2.1 Total Bilirubin 0.8 AST 14 ALT 12 Alkaline Phosphatase 92 Total Protein 6.4 L Albumin 3.8 Globulin 2.6 Albumin/Globulin Ratio 1.5 Ethyl Alcohol < 5.0 - Rads (name of study) CTA head and neck Radiology: EMP read contemporaneously (CT angiography of the head and neck show remote infarction of the right occipital lobe with chronic narrowing of the P2 segment of the right ANIMAL SHELTER CLERK and no stenosis in the neck) PD MEDICAL DECISION MAKING - ED course ED course: 80-year-old gentleman with history of right cerebral stroke presents with a recurrent left upper extremity focal seizure which evidently generalized to tonic-clonic prior to arrival and on arrival here still has left upper extremity focal seizure activity despite the administration 2 mg of Versed prehospital IV. On arrival here after initial evaluation he was administered 1 mg of Ativan IV and 500 mg of IV Keppra. This ceased the left upper extremity focal seizure activity. He was, not unexpectedly, quite sedated. 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 His mental status slowly came back in fact he needed a little bit of more Versed to get him through CT angiography of the head and neck. Supportive and daughter at the bedside. Case discussed by phone with Dr. Ferguson, on-call neurologist at [facility] he reviewed his records and agrees with increasing his Keppra from 750 long-acting once a day to 1000 long-acting once a day. Also agrees with IV loading here. He remained quite agitated here. He was grabbing at his bladder and acting as though he needed to urinate. A Rodriguez was placed, but this did not resolve his agitation despite the emptying of his bladder. Not much came out of his bladder and the Rodriguez was removed. He was administered a small dose of morphine and Toradol. Still just moaning and screaming here. Despite having a recently empty bladder he was agitated and yelling for "a thin catheter." He would not respond to redirection that his bladder had just been drained. Given his persistent agitation and nonredirectability I spoke with Dr. Elizalde for observation at 5:05 PM. Departure - Departure Disposition: ED Place in Observation Clinical Impression: Agitation, Seizure Condition: Serious Prescriptions: Levetiracetam [Keppra Xr] 2 tab PO DAILY #60 tab
[2021-04-13] MEDS ORDERED: IOVERSOL 320 100 ML VIAL IVP ONE ×2 (12:48→15:03)
[2021-04-13 13:19] LABS: BASOPHILS # (AUTO) 0.1 10^3/uL (0.0-0.1); BASOPHILS % (AUTO) 0.6 %; EOSINOPHILS % (AUTO) 0.4 %; HCT - HEMATOCRIT 39.6 % (42.0-52.0); HGB - HEMOGLOBIN 13.2 g/dL (14.0-18.0); LYMPHOCYTES # (AUTO) 0.7 10^3/uL (1.5-3.5); LYMPHOCYTES % (AUTO) 7.6 %; MEAN CORPUSCULAR HEMOGLOBIN 30.8 pg (27.0-31.0); MEAN CORPUSCULAR HGB CONC 33.3 g/dL (32.0-36.0); MEAN CORPUSCULAR VOLUME 92.3 fL (80.0-94.0); MONOCYTES # (AUTO) 0.3 10^3/uL (0.0-1.0); MONOCYTES % (AUTO) 3.1 %; NEUTROPHILS % (AUTO) 88.1 %; PLT - PLATELET COUNT 299 10^3/uL (130-450); RED BLOOD COUNT 4.29 10^6/uL (4.70-6.10); WHITE BLOOD COUNT 9.1 x10^3/uL (4.8-10.8)
[2021-04-13 13:27] LABS: ALBUMIN 3.8 g/dL (3.2-5.5); ALBUMIN/GLOBULIN RATIO 1.5 (1.0-2.2); ALKALINE PHOSPHATASE 92 IU/L (42-121); ALT ALANINE AMINOTRANSFERASE 12 IU/L (10-60); AST ASPARTATE AMINOTRANSFERASE 14 IU/L (10-42); BILIRUBIN,TOTAL 0.8 mg/dL (0.2-1.0); BUN - BLOOD UREA NITROGEN 26 mg/dL (6-20); CALCIUM 8.9 mg/dL (8.5-10.3); CARBON DIOXIDE - CO2 22 mmol/L (21-32); CHLORIDE 107 mmol/L (101-111); CREATININE 1.2 mg/dL (0.6-1.2); ETOH - ETHANOL < 5.0 mg/dL; GFR - MDRD 58 (>89); GLUCOSE 130 mg/dL (70-100); MAGNESIUM 2.1 mg/dL (1.7-2.8); POTASSIUM 3.6 mmol/L (3.5-5.0); SODIUM 139 mmol/L (135-145); TOTAL PROTEIN 6.4 g/dL (6.7-8.2)
[2021-04-13] MEDS ORDERED: MIDAZOLAM 2 MG/2 ML VIAL IVP STA (14:09)
--- NOTE | 2021-04-13 15:19 | CT Report ---
PROCEDURE: ANGIO HEAD W/WO INDICATIONS: seizure, hx cva CONTRAST: IV CONTRAST: Optiray 320 ml: 80 PO CONTRAST: *NO PO CONTRAST TECHNIQUE: Precontrast 4.5 mm thick angled axial sections acquired from the foramen magnum to the vertex. Afte r the administration of intravenous contrast, 1 mm thick sections acquired through the [place] of [place] is. Postcontrast 4.5 mm thick sections then re-acquired from the foramen magnum to the vertex. 3-di mensional epdtupz-xzvdwmwod-roonemqiff (MIP) and/or volume rendering reformats were acquired of the c entral intracranial vasculature. For radiation dose reduction, the following was used: automated ex posure control, adjustment of mA and/or kV according to patient size. COMPARISON: CTA head and neck dated 05/20/2020 and 10/23/2019 by report only. FINDINGS: Image quality: Motion/streak artifact is noted somewhat limiting evaluation. This is worse at the mendez sarina and most prominent anteriorly. Anterior circulation: Minimal atherosclerosis is noted at the proximal intracranial carotid arteries . Intracranial internal carotid arteries are normal in size and flow. The flow within the paired ant erior cerebral arteries is normal and symmetric. The flow within the middle cerebral arteries is nor mal and symmetric. The anterior communicating artery is seen. No aneurysms are seen. Posterior circulation: Visualized portions of the vertebral arteries demonstrate normal caliber, and join to form a normal appearing basilar artery. Flow within the posterior cerebral arteries is norm al and symmetric. No aneurysms are seen. Previously noted narrowing of the right P2 segment of the posterior cerebral artery is not well depicted on today's exam. Findings consistent with microvascula r ischemic changes with multiple foci of deep and superficial white matter hypoattenuation. Remote in farction of the right occipital lobe. No transcortical infarction. CSF spaces: Ventricles are normal in size and shape. Basal cisterns are patent. No extra-axial flu id collections. Brain: No midline shift. No intracranial bleeds or masses. Ruiz-white matter interface appears int act. Skull and face: Calvarium and facial bones appear intact, without suspicious lesions. Sinuses: Minimal mucosal thickening of the maxillary sinuses. The paranasal sinuses otherwise clear. IMPRESSION: Remote infarction of the right occipital lobe. No evidence of an acute transcortical infarction or ot her acute intracranial abnormality. No significant stenosis or occlusion of the intracranial vasculature. Reviewed by: Charanjit Wilburn DO on 04/13/2021 2:18 PM AKAMARA Approved by: Charanjit Wilburn DO on 04/13/2021 2:18 PM KARTIK Station ID: [id number]
--- NOTE | 2021-04-13 15:24 | CT Report ---
PROCEDURE: ANGIO NECK W INDICATIONS: seizure, hx cva CONTRAST: IV CONTRAST: Optiray 320 ml: 80 PO CONTRAST: *NO PO CONTRAST TECHNIQUE: After the administration of intravenous contrast, 1.5 mm axial sections acquired from the aortic arch to the [place] of Vo. Coronal 3-D maximum intensity projection (MIP) and/or volume rendering ref ormats were then performed. For radiation dose reduction, the following was used: automated exposur e control, adjustment of mA and/or kV according to patient size. COMPARISON: CT angiogram dated 05/20/2020 by report only. FINDINGS: Image quality: Excellent. Carotid system: The great vessels demonstrate a conventional anatomy as they arise from the aortic a rch. The origins of the common carotid arteries appear patent. The common carotid arteries demonstr ate normal calibers and courses. The bifurcation regions appear normal bilaterally. The internal ca rotid arteries demonstrate normal caliber and course. Minimal calcifications of the carotid bulb. Posterior circulation: The origins of the vertebral arteries appear patent. The more superior porti ons of the vertebral arteries demonstrate normal course and caliber. They join to form a normal appe aring basilar artery. Soft tissues: Visualized neck soft tissues demonstrate no suspicious abnormalities. The thyroid is normal in size and there are no incidental findings. Bones: No acute osseous abnormality. Multilevel cervical spondylosis worse at C4-C5. There is focal r eversal of the normal cervical lordosis. Mild mucosal thickening in the paranasal sinuses. There is p alatine tonsillitis. IMPRESSION: No significant stenosis of the cervical vasculature. Reviewed by: Charanjit Wilburn DO on 04/13/2021 2:23 PM KARTIK Approved by: Charanjit Wilburn DO on 04/13/2021 2:23 PM KARTIK Station ID: [id number]
[2021-04-13] MEDS ORDERED: KETOROLAC 30 MG/ML VIAL IVP STA (15:47)
[2021-04-13] MEDS ORDERED: MORPHINE 2 MG/ML CARPUJECT IVP STA (15:47)
[2021-04-13] MEDS ORDERED: ACETAMINOPHEN 325 MG TABLET PO PRN (17:14)
--- NOTE | 2021-04-13 17:34 | HISTORY & PHYSICAL EXAMINATION ---
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 Today he had left arm twitching that went on to become a generalized tonic-clonic seizure. EMS was called and they gave Versed IV in transit. He was obtunded on presentation to the ED. He underwent head and neck CTA that were unremarkable except for the old stroke in the right parietal region finding. The ED provider called the Neurologist on-call who advised Keppra loading and to increase his Ke ppra dose from 750 extended release to 1000 mg extended release daily. In the ED after the CT scans, he was postictal, exhibiting signs of marked confusion, pulling at his Rodriguez, pulling at his skin, complaining about a Rodriguez catheter size and having pain. He continues to have agitation and will be placed in Observation for managing continued post ictal confusion. History - Past Medical History Cardiovascular: reports: Congestive heart failure (Echo done at the time of the 10/2019 stroke showed LVEF of 40%) Respiratory: reports: None Neuro: reports: CVA, Seizure disorder Endocrine/Autoimmune: reports: None : reports: Benign prostate hypertrophy, Retention Psych: reports: None Musculoskeletal: reports: None - Family & Social History Living arrangement: At home Living Situation: With spouse/s.o. Social History Notes: He lives with his who is his caregiver. He drives a car minimally. He is a non-smoker, drinks no alcohol. - Substance History Use: Uses substance without health or social issues: Cannabis (Wifer reported to ED provider that he smokes marijuana 6 times a day for decades) Meds/Allgy - Home Medications Home Medications: Ambulatory Orders Medication Instructions Recorded Confirmed Atorvastatin [Lipitor] 40 mg PO QPM #30 tablet 10/25/19 05/20/20 carvediloL [Coreg] 3.125 mg PO BID #60 tablet 10/25/19 04/13/21 Apixaban [Eliquis] 1 tab PO DAILY 04/13/21 04/13/21 Finasteride [Proscar] 5 mg PO DAILY 04/13/21 04/13/21 Levetiracetam [Keppra Xr] 2 tab PO DAILY #60 tab 04/13/21 Lisinopril [Zestril] 20 mg PO DAILY 04/13/21 04/13/21 Tamsulosin [Flomax] 0.4 mg PO DAILY 04/13/21 04/13/21 - Allergies Allergies/Adverse Reactions: Allergies Allergy/AdvReac Type Severity Reaction Status Date / Time No Known Drug Allergies Allergy Verified 04/13/21 12:38 Review of Systems - All Other Systems All Other Systems: reports: Other (Limited ROS since the patient is confused from having received benzodiazepines and from postictal confusion) Exam - Vital Signs Vital Signs: Vital Signs x48h Temp Pulse Resp BP Pulse Ox 04/13/21 17:01 91 16 106/94 H 100 04/13/21 16:17 96 20 147/98 H 97 04/13/21 13:46 72 20 147/95 H 99 04/13/21 12:38 95 17 147/95 H 98 04/13/21 12:26 36.5 C 92 22 147/95 H 98 - Physical Exam General Appearance: positive: Lethargic, Other (Mostly sleeping, after iv Benzos, with some intentional repositioning of himself in bed.) Eyes Bilateral: positive: No lid inflammation ENT: positive: ENT inspection nml, No signs of dehydration Neck: positive: Nml inspection Respiratory: positive: No respiratory distress Cardiovascular: positive: Regular rate & rhythm (Distant heart sounds) Abdomen: positive: Non-tender, No distention Skin: positive: Warm, Dry Extremities: positive: No pedal edema Neurologic/Psychiatric: positive: Other (Lethargic after iv Benzo iv pushes) Conclusion/Plan - Problem List (1) Post-ictal confusion Conclusion/Plan: Will continue to monitor this patient and treat for agitation using benzodiaz epines. He received Keppra loading and his dose will be increased in order to prevent further seizures to prevent a post ictal confusion state to recur. (2) Seizure as late effect of cerebrovascular accident (CVA) Conclusion/Plan: He received Keppra loading (500 mg in ED) and his dose will be increased in order to prevent further seizures, and to prevent the post ictal confusion. We will use Keppra 500 mg po bid, starting this evening. At discharge, will prescribe the ER form at 1000 mg daily, which we do not carry here on forangelikablas. (3) Cerebrovascular accident (CVA) Conclusion/Plan: As per Hx. 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 He was to have cardiology evaluation as an outpatient. It is unknown if he has had a work-up for coronary ischemia with a stress test or an angiogram. We will continue his Coreg and JEANNINE inhibitor while here. We will decrease the lisinopril from maximum dose of 20 mg a day down to just 5 mg daily because of his "soft" blood pressure after having received benzodiazepines. (5) Afib Conclusion/Plan: When he presented with status epilepticus in 05/2020, his EKG showed A. fib. Since that time he has been on anticoagulation with Eliquis. We will continue his Eliquis twice daily dosing here - Lab Results Fish Bones: 04/13/21 13:10 04/13/21 13:10
[2021-04-13 18:50] LABS: B. PARAPERTUSSIS- RESP PCR PAN NOT DETECTED; B. PERTUSSIS- RESP PCR PANEL NOT DETECTED; C. PNEUMONIAE- RESP PCR PANEL NOT DETECTED; CORONAVIRUS 229E-RESP PCR NOT DETECTED; CORONAVIRUS HKU1-RESP PCR NOT DETECTED; CORONAVIRUS NL63-RESP PCR NOT DETECTED; CORONAVIRUS OC43-RESP PCR NOT DETECTED; HUMAN METAPNEUMOVIRUS NOT DETECTED; INFLUENZA A- RESP PCR PANEL NOT DETECTED; INFLUENZA B - RESP PCR PANEL NOT DETECTED; M. PNEUMONIAE- RESP PCR PANEL NOT DETECTED; PARAINFLUENZA VIRUS 1 NOT DETECTED; PARAINFLUENZA VIRUS 2 NOT DETECTED; PARAINFLUENZA VIRUS 3 NOT DETECTED; PARAINFLUENZA VIRUS 4 NOT DETECTED; RHINOVIRUS/ENTEROVIRUS NOT DETECTED; RSV- RESP PCR PANEL NOT DETECTED; SARS-CoV-2 -RESP PCR PANEL NOT DETECTED
[2021-04-13] MEDS: levETIRAcetam 500 MG/5 ML UDC PO SCH (21:29)
[2021-04-13] MEDS: APIXABAN 5 MG TABLET PO SCH (21:30)
[2021-04-13] MEDS: carvediloL 3.125 MG TABLET PO SCH (21:30)
[2021-04-14] MEDS: SODIUM CHLORIDE FLUSH 0.9% 10 ML SYRINGE IVP SCH ×3 (00:47→15:38)
--- NOTE | 2021-04-14 06:42 | PHARMACY PROGRESS NOTE ---
- Best Possible Medication History Admit Date and Time: 04/13/21 1713 Processed by: Nursing Medication History completed: Yes Patient Interview: Completed Secondary Source(s): Pharmacy records, Insurance records As the person ultimately responsible for medication therapy, providers are able to order a medication from an existing home medication list in [facility] via the "Reconcile Routine" prior to Confirmation of that medication by retail support specialist. Such practice is discouraged except when the physician, in their clinical judgment, deems that a medical need exists for a medication without regard to previous use.
[2021-04-14] MEDS: FINASTERIDE 5 MG TABLET PO SCH (08:59)
[2021-04-14] MEDS: TAMSULOSIN 0.4 MG CAPSULE PO SCH (08:59)
[2021-04-14] MEDS: carvediloL 3.125 MG TABLET PO SCH (08:59)
[2021-04-14] MEDS: APIXABAN 5 MG TABLET PO SCH (08:59)
[2021-04-14] MEDS: levETIRAcetam 500 MG/5 ML UDC PO SCH (08:59)
[2021-04-14] MEDS ORDERED: lisinopriL 5 MG TABLET PO SCH (09:00)
[2021-04-14] MEDS ORDERED: lisinopriL 20 MG TABLET PO SCH (09:00)
[2021-04-14] MEDS: LORazepam 2 MG/ML VIAL IVP PRN (09:10)
[2021-04-14] MEDS ORDERED: hydrALAZINE INJ 20 MG/ML VIAL IVP ONE (14:39)
--- NOTE | 2021-04-14 17:02 | PROVIDER PROGRESS NOTE ---
Assessment/Plan - Problem List (1) Post-ictal confusion Assessment/Plan: Patient was restless and agitated all night, did not sleep until 0800. At this point the and daughter also arrived and he saw some familiar faces. He was in and out of bed all night, requesting to be toileted more than once every hour, refusing to eat, only wanted to drink 7-Up. He would not follow cues, would not swallow his pills. The nurse was able to give him his Keppra in liquid form with a syringe inserted in his mouth so he would be forced to swallow it. The and daughter confirmed that when the patient had his last seizure which was in 05/2020, it took 3 to 4 weeks to him for him to become less confused. He is (again) showing that he has not had complete recovery from his postictal confusion. Hospitalization is required until he has a more complete recovery as he is not at his baseline yet. Will admit him to full Inpatient status. Will obtain a brain MRI to determine if there is any new focus of pathology in the brain. We will also possibly discuss with Neurology for further recommendations (2) Seizure as late effect of cerebrovascular accident (CVA) Assessment/Plan: Will give either IV or p.o. forms of the higher doses of Keppra as was advised. 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 It was a parietal stroke. The patient is "cross eyed" but the old records and the says this has been since childhood. The patient is able to ambulate without any assistance here, is not ataxic. We will continue his statin and anticoagulant, if he will swallow oral meds. Otherwise will need to change to therapeutic sq Lovenox. (4) [place]JO (hard of hearing) Assessment/Plan: The daughter reports to me today that he has 20% hearing in 1 year and 5% hearing in the other ear. (5) Cardiomyopathy Assessment/Plan: At the time of the stroke, a resting Echo showed a depressed LVEF. He was to have cardiology evaluation as an outpatient. It is unknown if he has had a work-up for coronary ischemia with a stress test or an angiogram. We decreased the lisinopril from maximum dose of 20 mg a day down to just 5 mg daily because of his "soft" blood pressure after having received benzodiazepines yesterday. We will continue his Coreg and JEANNINE inhibitor while here, if he will swallow his pills, otherwise will use iv B-shivam. There is no iv substitute for ACEs (6) Afib Assessment/Plan: When he presented with status epilepticus in 05/2020, his EKG showed A. fib. Since that time he has been on anticoagulation with Eliquis. We will continue his Eliquis twice daily dosing here, if he will take oral pills, otherwise will change to therapeutic Lovenox. - Current Meds Current Meds: Current Medications Generic Name Dose Route Start Last Admin Trade Name Montyq PRN Reason Stop Dose Admin Apixaban 5 mg 04/13/21 21:00 04/14/21 08:59 Apixaban 5 Mg Tablet PO 5 mg BID PHAN Administration Carvedilol 3.125 mg 04/13/21 21:00 04/14/21 08:59 Carvedilol 3.125 Mg Tablet PO 3.125 mg BID PHAN Administration Finasteride 5 mg 04/14/21 09:00 04/14/21 08:59 Finasteride 5 Mg Tablet PO 5 mg DAILY PHAN Administration Levetiracetam 500 mg 04/13/21 21:00 04/14/21 08:59 Levetiracetam 500 Mg/5 Ml Udc PO 500 mg BID PHAN Administration Lisinopril 5 mg 04/14/21 09:00 04/14/21 08:59 Lisinopril 5 Mg Tablet PO 5 mg DAILY PHAN Administration Lorazepam 0.5 mg 04/13/21 17:16 04/14/21 09:10 Lorazepam 2 Mg/Ml Vial IVP 0.5 mg Q2H PRN Administration Agitation Sodium Chloride 10 ml 04/14/21 01:00 04/14/21 15:38 Sodium Chloride Flush 0.9% 10 Ml Syringe IVP 10 ml 0100,0900,1700 PHAN Administration Tamsulosin HCl 0.4 mg 04/14/21 09:00 04/14/21 08:59 Tamsulosin 0.4 Mg Capsule PO 0.4 mg DAILY PHAN Administration - Lab Result Fish Bone Diagrams: 04/13/21 13:10 04/13/21 13:10 - Additional Planning My Orders: My Active Orders 04/13/21 17:14 Activity Orders [RC] Q2HR IO [RC] IOSHIFT Initiate Bowel Care Protocol [RC] .protocol Initiate Line Care Protocol [RC] QSHIFT Initiate Personal Care Protoco [RC] .protocol Vital Signs [RC] 0800,1600,0000 Acetaminophen [Tylenol] 650 mg PO Q4HR PRN Ondansetron Inj [Zofran Inj] 4 mg IVP Q6HR PRN Sodium Chloride Flush 0.9% [Normal Saline Flush 0.9%] 10 ml IVP PRN PRN Code Status [OTHERS] Routine Condition of Patient [OTHERS] Routine DVT Prophylaxis [OTHERS] Routine 04/13/21 17:16 IV Insert [RC] .ONCE LORazepam INJ [Ativan Inj (Vial)] 0.5 mg IVP Q2H PRN 04/13/21 21:00 Apixaban [Eliquis] 5 mg PO BID carvediloL [Coreg] 3.125 mg PO BID levETIRAcetam [Keppra] 500 mg PO BID 04/14/21 01:00 Sodium Chloride Flush 0.9% [Normal Saline Flush 0.9%] 10 ml IVP 0100,0900,1700 04/14/21 Breakfast Regular Diet [DIET] 04/14/21 09:00 Finasteride [Proscar] 5 mg PO DAILY Tamsulosin [Flomax] 0.4 mg PO DAILY lisinopriL [Zestril] 5 mg PO DAILY 04/14/21 16:58 Transfer [Admit \\ Transfer \\ Status] [RC] .ONCE Subjective - Subjective Patient Reports: Other (Asleep) Nursing Reports: Other (RN reports that he was up all night, disoriented, thought he was at home and looking for his bed, getting up more than once an hour to go to the bathroom, sitting down on the toilet to urinate, refused to keep on his clothes, was walking around his room naked. Fell asleep at about 0 800 today) Objective Vital Signs: Vital Signs - 24 hr 04/13/21 04/13/21 04/13/21 17:01 18:30 20:28 Temperature 36.7 C Heart Rate 91 Heart Rate [ 91 Brachial] Respiratory 16 20 Rate Blood Pressure 106/94 H Blood Pressure [Left Brachial artery] Blood Pressure 137/93 H [Right Ankle] O2 Saturation 100 97 04/14/21 04/14/21 04/14/21 00:00 08:00 15:30 Temperature 36.6 C Heart Rate Heart Rate [ 88 100 82 Brachial] Respiratory 18 20 20 Rate Blood Pressure Blood Pressure 149/77 H [Left Brachial artery] Blood Pressure 153/80 H 170/116 H [Right Ankle] O2 Saturation 97 98 96 04/14/21 04/14/21 15:35 16:49 Temperature Heart Rate Heart Rate [ Brachial] Respiratory Rate Blood Pressure 149/77 H Blood Pressure 141/74 H [Left Brachial artery] Blood Pressure [Right Ankle] O2 Saturation Oxygen O2 Source Room air I&O (Last 24 Hrs): Intake and Output Totals x24h 04/12/21 04/13/21 04/14/21 23:59 23:59 23:59 Intake Total 105 260 Output Total 350 4 Balance -245 256 General: Alert HEENT: Mucous membr. moist/pink, Other (Cross-eyed, squints and uses one eye) Neck: Supple, No JVD Neuro: Alert, Disoriented, Other (Eyes are crossed) Cardiovascular: Regular rate Respiratory: No respiratory distress Extremities: No clubbing, No edema, No tenderness/swelling - Results Results: Laboratory Results WBC 9.1 x10^3/uL (4.8-10.8) 04/13/21 13:10 RBC 4.29 10^6/uL (4.70-6.10) L 04/13/21 13:10 Hgb 13.2 g/dL (14.0-18.0) L 04/13/21 13:10 Hct 39.6 % (42.0-52.0) L 04/13/21 13:10 MCV 92.3 fL (80.0-94.0) 04/13/21 13:10 MCH 30.8 pg (27.0-31.0) 04/13/21 13:10 MCHC 33.3 g/dL (32.0-36.0) 04/13/21 13:10 RDW 13.0 % (12.0-15.0) 04/13/21 13:10 Plt Count 299 10^3/uL (130-450) 04/13/21 13:10 MPV 9.0 fL (7.4-11.4) 04/13/21 13:10 Neut # (Auto) 8.0 10^3/uL (1.5-6.6) H 04/13/21 13:10 Lymph # (Auto) 0.7 10^3/uL (1.5-3.5) L 04/13/21 13:10 Sullivan # (Auto) 0.3 10^3/uL (0.0-1.0) 04/13/21 13:10 Eos # (Auto) 0.0 10^3/uL (0.0-0.7) 04/13/21 13:10 Baso # (Auto) 0.1 10^3/uL (0.0-0.1) 04/13/21 13:10 Absolute Nucleated RBC 0.00 x10^3/uL 04/13/21 13:10 Nucleated RBC % 0.0 /100WBC 04/13/21 13:10 Sodium 139 mmol/L (135-145) 04/13/21 13:10 Potassium 3.6 mmol/L (3.5-5.0) 04/13/21 13:10 Chloride 107 mmol/L (101-111) 04/13/21 13:10 Carbon Dioxide 22 mmol/L (21-32) 04/13/21 13:10 Anion Gap 10.0 (6-13) 04/13/21 13:10 BUN 26 mg/dL (6-20) H 04/13/21 13:10 Creatinine 1.2 mg/dL (0.6-1.2) 04/13/21 13:10 Estimated GFR (MDRD) 58 (>89) L 04/13/21 13:10 Glucose 130 mg/dL (70-100) H 04/13/21 13:10 Calcium 8.9 mg/dL (8.5-10.3) 04/13/21 13:10 Magnesium 2.1 mg/dL (1.7-2.8) 04/13/21 13:10 Total Bilirubin 0.8 mg/dL (0.2-1.0) 04/13/21 13:10 AST 14 IU/L (10-42) 04/13/21 13:10 ALT 12 IU/L (10-60) 04/13/21 13:10 Alkaline Phosphatase 92 IU/L (42-121) 04/13/21 13:10 Total Protein 6.4 g/dL (6.7-8.2) L 04/13/21 13:10 Albumin 3.8 g/dL (3.2-5.5) 04/13/21 13:10 Globulin 2.6 g/dL (2.1-4.2) 04/13/21 13:10 Albumin/Globulin Ratio 1.5 (1.0-2.2) 04/13/21 13:10 Nasal Adenovirus (PCR) NOT DETECTED 04/13/21 16:48 Nasal B. parapertussis DNA (PCR) NOT DETECTED 04/13/21 16:48 Nasal Coronavir 229E PCR NOT DETECTED 04/13/21 16:48 Nasal Coronavir HKU1 PCR NOT DETECTED 04/13/21 16:48 Nasal Coronavir NL63 PCR NOT DETECTED 04/13/21 16:48 Nasal Coronavir OC43 PCR NOT DETECTED 04/13/21 16:48 Nasal Enterovir/Rhinovir PCR NOT DETECTED 04/13/21 16:48 Nasal Influenza B PCR NOT DETECTED 04/13/21 16:48 Nasal Influenza A PCR NOT DETECTED 04/13/21 16:48 Nasal Parainfluen 1 PCR NOT DETECTED 04/13/21 16:48 Nasal Parainfluen 2 PCR NOT DETECTED 04/13/21 16:48 Nasal Parainfluen 3 PCR NOT DETECTED 04/13/21 16:48 Nasal Parainfluen 4 PCR NOT DETECTED 04/13/21 16:48 Nasal RSV (PCR) NOT DETECTED 04/13/21 16:48 Nasal B.pertussis DNA PCR NOT DETECTED 04/13/21 16:48 Nasal C.pneumoniae (PCR) NOT DETECTED 04/13/21 16:48 Mian Human Metapneumo PCR NOT DETECTED 04/13/21 16:48 Nasal M.pneumoniae (PCR) NOT DETECTED 04/13/21 16:48 Nasal SARS-CoV-2 (PCR) NOT DETECTED 04/13/21 16:48 Ethyl Alcohol < 5.0 mg/dL 04/13/21 13:10
[2021-04-14] MEDS: METOPROLOL 5 MG/5 ML VIAL IVP SCH (22:05)
[2021-04-14] MEDS: ENOXAPARIN 60 MG/0.6 ML SYRINGE SUBQ SCH (22:06)
[2021-04-14] MEDS: SODIUM CHLORIDE FLUSH 0.9% 10 ML SYRINGE IVP PRN (22:06)
[2021-04-14] MEDS: levETIRAcetam INJ 500 MG in SODIUM CHLORIDE 0.9% 100ML 100 ML IV SCH (22:07)
[2021-04-15] MEDS: SODIUM CHLORIDE FLUSH 0.9% 10 ML SYRINGE IVP SCH ×3 (01:08→20:45)
[2021-04-15] MEDS: ENOXAPARIN 60 MG/0.6 ML SYRINGE SUBQ SCH ×2 (09:00→20:45)
[2021-04-15] MEDS: levETIRAcetam INJ 500 MG in SODIUM CHLORIDE 0.9% 100ML 100 ML IV SCH ×2 (09:01→20:44)
[2021-04-15] MEDS: TAMSULOSIN 0.4 MG CAPSULE PO SCH (09:01)
[2021-04-15] MEDS: FINASTERIDE 5 MG TABLET PO SCH (09:01)
[2021-04-15] MEDS: METOPROLOL 5 MG/5 ML VIAL IVP SCH ×2 (09:01→20:44)
[2021-04-15] MEDS ORDERED: LIDOCAINE 2% URO-JET 5 ML SYRINGE UR ONE (11:31)
[2021-04-15 12:10] LABS: GLUCOSE, URINE (UA) NEGATIVE (NEGATIVE); KETONES,URINE (UA) >=80 mg/dL (NEGATIVE); LEUKOCYTE ESTERASE, URINE TRACE (NEGATIVE); NITRITE,URINE POSITIVE (NEGATIVE); OCCULT BLOOD,URINE LARGE (NEGATIVE); PROTEIN,URINE 100 mg/dL (NEGATIVE); UROBILINOGEN,URINE 1 (NORMAL) E.U./dL (NORMAL)
[2021-04-15 12:14] LABS: CLARITY,URINE CLOUDY (CLEAR)
[2021-04-15 12:19] LABS: AMORPHOUS SEDIMENT,UR Few /LPF; BACTERIA,URINE Few /HPF (None Seen); BILIRUBIN,URINE NEGATIVE (NEGATIVE); ICTOTEST,URINE NEGATIVE; RBC,URINE TNTC /HPF (0-5); SQUAMOUS EPITHELIAL CELL,UR RARE Squamous (<= Few); WBC,URINE 0-3 /HPF (0-3)
--- NOTE | 2021-04-15 18:24 | PROVIDER PROGRESS NOTE ---
Assessment/Plan - Problem List (1) Post-ictal confusion Assessment/Plan: Patient was restless and agitated all night, did not sleep until 0800. At this point the and daughter also arrived and he saw some familiar faces. He was in and out of bed all night, requesting to be toileted more than once every hour, refusing to eat, only wanted to drink 7-Up. He would not follow cues, would not swallow his pills. The nurse was able to give him his Keppra in liquid form with a syringe inserted in his mouth so he would be forced to swallow it. The and daughter confirmed that when the patient had his last seizure which was in 05/2020, it took 3 to 4 weeks to him for him to become less confused. He is (again) showing that he has not had complete recovery from his postictal confusion. Hospitalization is required until he has a more complete recovery as he is not at his baseline yet. Will obtain a brain MRI to determine if there is any new focus of pathology in the brain. We will also possibly discuss with Neurology for further recommendations (2) Seizure as late effect of cerebrovascular accident (CVA) Assessment/Plan: Will give either IV or p.o. forms of the higher doses of Keppra as was advised. 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 It was a parietal stroke then. 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 The patient is able to ambulate without any assistance here, is not ataxic. We will continue his statin and anticoagulant, if he will swallow oral meds. Otherwise will need to change to therapeutic sq Lovenox. (4) [place] (hard of hearing) Assessment/Plan: As per Hx, he has 5% hearing on one side 20% on other, wears NO hearing aides, per . We need to take off mask, as he reads lips or lean in to his ears, to speak so he will understand (5) Cardiomyopathy Assessment/Plan: At the time of the stroke in mid-2019, a resting Echo showed a depressed LVEF. He was to have cardiology evaluation as an outpatient. It is unknown if he has had a work-up for coronary ischemia with a stress test or an angiogram. We decreased the lisinopril from maximum dose of 20 mg a day down to just 5 mg daily because of his "soft" blood pressure after having received benzodiazepines yesterday. We will continue his Coreg and JEANNINE inhibitor while here, if he will swallow his pills, otherwise will use iv B-shivam. There is no iv substitute for ACEs (6) Afib Assessment/Plan: When he presented with status epilepticus in 05/2020, his EKG showed A. fib. Since that time he has been on anticoagulation with Eliquis. We will continue his Eliquis twice daily dosing here, if he will take oral pills, otherwise will change to therapeutic Lovenox. - Current Meds Current Meds: Current Medications Generic Name Dose Route Start Last Admin Trade Name Freq PRN Reason Stop Dose Admin Enoxaparin Sodium 60 mg 04/14/21 21:00 04/15/21 09:00 Enoxaparin 60 Mg/0.6 Ml Syringe SUBQ 60 mg BID PHAN Administration Finasteride 5 mg 04/14/21 09:00 04/15/21 09:01 Finasteride 5 Mg Tablet PO 5 mg DAILY PHAN Administration Levetiracetam 500 mg/ Sodium 105 mls @ 400 mls/hr 04/14/21 21:00 04/15/21 09:25 Chloride IV Infused BID PHAN Infusion Lorazepam 0.5 mg 04/13/21 17:16 04/14/21 09:10 Lorazepam 2 Mg/Ml Vial IVP 0.5 mg Q2H PRN Administration Agitation Metoprolol Tartrate 2.5 mg 04/14/21 21:00 04/15/21 09:01 Metoprolol 5 Mg/5 Ml Vial IVP 2.5 mg BID PHAN Administration Sodium Chloride 10 ml 04/13/21 17:14 04/14/21 22:06 Sodium Chloride Flush 0.9% 10 Ml Syringe IVP 10 ml PRN PRN Administration NEEDED PER PROVIDER ORDERS Sodium Chloride 10 ml 04/14/21 01:00 04/15/21 09:02 Sodium Chloride Flush 0.9% 10 Ml Syringe IVP 10 ml 0100,0900,1700 PHAN Administration Tamsulosin HCl 0.4 mg 04/14/21 09:00 04/15/21 09:01 Tamsulosin 0.4 Mg Capsule PO 0.4 mg DAILY PHAN Administration - Lab Result Fish Bone Diagrams: 04/13/21 13:10 04/13/21 13:10 - Additional Planning My Orders: My Active Orders 04/14/21 21:00 Enoxaparin [Lovenox] 60 mg SUBQ BID Metoprolol Inj [Lopressor Inj] 2.5 mg IVP BID levETIRAcetam INJ [Keppra Inj] 500 mg Sodium Chloride 0.9% 100Ml [Normal Saline 0.9% 100Ml] 100 ml IV BID 04/15/21 1:1 Safety Observation [OTHERS] Routine 04/15/21 11:30 Rodriguez Insertion [RC] QSHIFT 04/15/21 11:50 CUL, URINE [RM] Stat 04/15/21 15:44 BRAIN WO [MRI] Routine Subjective - Subjective Nursing Reports: Other (Awake all night, restless, walking, then goes to sleep at 0700 and slept most of daytime) Objective Vital Signs: Vital Signs - 24 hr 04/14/21 04/15/21 04/15/21 22:05 04:15 07:58 Temperature 38.0 C H 37.1 C 36.7 C Heart Rate [ 95 85 92 Brachial] Respiratory 16 18 15 Rate Blood Pressure 165/90 H 152/75 H 170/122 H [right arm] O2 Saturation 98 97 04/15/21 16:00 Temperature 37.4 C Heart Rate [ 89 Brachial] Respiratory 18 Rate Blood Pressure 114/64 [right arm] O2 Saturation 98 Oxygen O2 Source Room air I&O (Last 24 Hrs): Intake and Output Totals x24h 04/13/21 04/14/21 04/15/21 23:59 23:59 23:59 Intake Total 105 365 345 Output Total 350 604 325 Balance -245 -239 20 General: Other (Asleep, moves spontaneously in bed) HEENT: Mucous membr. moist/pink Neck: Supple Neuro: Disoriented, Non Focal, Other ([place]) Cardiovascular: Regular rate Respiratory: No respiratory distress Abdomen: Soft Extremities: No edema - Results Results: Laboratory Results WBC 9.1 x10^3/uL (4.8-10.8) 04/13/21 13:10 RBC 4.29 10^6/uL (4.70-6.10) L 04/13/21 13:10 Hgb 13.2 g/dL (14.0-18.0) L 04/13/21 13:10 Hct 39.6 % (42.0-52.0) L 04/13/21 13:10 MCV 92.3 fL (80.0-94.0) 04/13/21 13:10 MCH 30.8 pg (27.0-31.0) 04/13/21 13:10 MCHC 33.3 g/dL (32.0-36.0) 04/13/21 13:10 RDW 13.0 % (12.0-15.0) 04/13/21 13:10 Plt Count 299 10^3/uL (130-450) 04/13/21 13:10 MPV 9.0 fL (7.4-11.4) 04/13/21 13:10 Neut # (Auto) 8.0 10^3/uL (1.5-6.6) H 04/13/21 13:10 Lymph # (Auto) 0.7 10^3/uL (1.5-3.5) L 04/13/21 13:10 [place] # (Auto) 0.3 10^3/uL (0.0-1.0) 04/13/21 13:10 Eos # (Auto) 0.0 10^3/uL (0.0-0.7) 04/13/21 13:10 Baso # (Auto) 0.1 10^3/uL (0.0-0.1) 04/13/21 13:10 Absolute Nucleated RBC 0.00 x10^3/uL 04/13/21 13:10 Nucleated RBC % 0.0 /100WBC 04/13/21 13:10 Sodium 139 mmol/L (135-145) 04/13/21 13:10 Potassium 3.6 mmol/L (3.5-5.0) 04/13/21 13:10 Chloride 107 mmol/L (101-111) 04/13/21 13:10 Carbon Dioxide 22 mmol/L (21-32) 04/13/21 13:10 Anion Gap 10.0 (6-13) 04/13/21 13:10 BUN 26 mg/dL (6-20) H 04/13/21 13:10 Creatinine 1.2 mg/dL (0.6-1.2) 04/13/21 13:10 Estimated GFR (MDRD) 58 (>89) L 04/13/21 13:10 Glucose 130 mg/dL (70-100) H 04/13/21 13:10 Calcium 8.9 mg/dL (8.5-10.3) 04/13/21 13:10 Magnesium 2.1 mg/dL (1.7-2.8) 04/13/21 13:10 Total Bilirubin 0.8 mg/dL (0.2-1.0) 04/13/21 13:10 AST 14 IU/L (10-42) 04/13/21 13:10 ALT 12 IU/L (10-60) 04/13/21 13:10 Alkaline Phosphatase 92 IU/L (42-121) 04/13/21 13:10 Total Protein 6.4 g/dL (6.7-8.2) L 04/13/21 13:10 Albumin 3.8 g/dL (3.2-5.5) 04/13/21 13:10 Globulin 2.6 g/dL (2.1-4.2) 04/13/21 13:10 Albumin/Globulin Ratio 1.5 (1.0-2.2) 04/13/21 13:10 Urine Color BROWN 04/15/21 11:50 Urine Clarity CLOUDY (CLEAR) 04/15/21 11:50 Urine pH 6.0 PH (5.0-7.5) 04/15/21 11:50 Ur Specific [place] 1.025 (1.002-1.030) 04/15/21 11:50 Urine Protein 100 mg/dL (NEGATIVE) H 04/15/21 11:50 Urine Glucose (UA) NEGATIVE mg/dL (NEGATIVE) 04/15/21 11:50 Urine Ketones >=80 mg/dL (NEGATIVE) H 04/15/21 11:50 Urine Occult Blood LARGE (NEGATIVE) H 04/15/21 11:50 Urine Nitrite POSITIVE (NEGATIVE) H 04/15/21 11:50 Urine Bilirubin NEGATIVE (NEGATIVE) 04/15/21 11:50 Urine Urobilinogen 1 (NORMAL) E.U./dL (NORMAL) 04/15/21 11:50 Ur Leukocyte Esterase TRACE (NEGATIVE) H 04/15/21 11:50 Urine RBC TNTC /HPF (0-5) H 04/15/21 11:50 Urine WBC 0-3 /HPF (0-3) 04/15/21 11:50 Ur Squamous Epith Cells RARE Squamous (<= Few) 04/15/21 11:50 Amorphous Sediment Few /LPF 04/15/21 11:50 Urine Bacteria Few /HPF (None Seen) 04/15/21 11:50 Urine Culture Comments INDICATED 04/15/21 11:50 Nasal Adenovirus (PCR) NOT DETECTED 04/13/21 16:48 Nasal B. parapertussis DNA (PCR) NOT DETECTED 04/13/21 16:48 Nasal Coronavir 229E PCR NOT DETECTED 04/13/21 16:48 Nasal Coronavir HKU1 PCR NOT DETECTED 04/13/21 16:48 Nasal Coronavir NL63 PCR NOT DETECTED 04/13/21 16:48 Nasal Coronavir OC43 PCR NOT DETECTED 04/13/21 16:48 Nasal Enterovir/Rhinovir PCR NOT DETECTED 04/13/21 16:48 Nasal Influenza B PCR NOT DETECTED 04/13/21 16:48 Nasal Influenza A PCR NOT DETECTED 04/13/21 16:48 Nasal Parainfluen 1 PCR NOT DETECTED 04/13/21 16:48 Nasal Parainfluen 2 PCR NOT DETECTED 04/13/21 16:48 Nasal Parainfluen 3 PCR NOT DETECTED 04/13/21 16:48 Nasal Parainfluen 4 PCR NOT DETECTED 04/13/21 16:48 Nasal RSV (PCR) NOT DETECTED 04/13/21 16:48 Nasal B.pertussis DNA PCR NOT DETECTED 04/13/21 16:48 Nasal C.pneumoniae (PCR) NOT DETECTED 04/13/21 16:48 Mian Human Metapneumo PCR NOT DETECTED 04/13/21 16:48 Nasal M.pneumoniae (PCR) NOT DETECTED 04/13/21 16:48 Nasal SARS-CoV-2 (PCR) NOT DETECTED 04/13/21 16:48 Ethyl Alcohol < 5.0 mg/dL 04/13/21 13:10
[2021-04-15] MEDS: ACETAMINOPHEN 1,000 MG/100 ML 100 ML IV PRN (21:00)
[2021-04-15] MEDS ORDERED: BISACODYL 10 MG SUPP PR ONE (22:27)
[2021-04-15] MEDS: LORazepam 2 MG/ML VIAL IVP PRN (22:42)
[2021-04-16] MEDS: SODIUM CHLORIDE FLUSH 0.9% 10 ML SYRINGE IVP SCH ×3 (03:15→18:33)
--- NOTE | 2021-04-16 08:10 | MRI Report ---
PROCEDURE: Brain W/O INDICATIONS: prolonged confusion and recurrent seizure TECHNIQUE: Noncontrast axial T1 spin echo, axial T2 fast spin echo, sagittal and axial FLAIR, coronal T2 fast sp in echo, axial gradient echo, axial diffusion and ADC through the brain. COMPARISON: None. FINDINGS: Image quality: Excellent. The ventricular system and cortical sulci demonstrate atrophy, consistent for patient's stated age. There are areas of hyperintense T2/FLAIR signal in the periventricular and subcortical white matter. There is no acute intra or extra-axial fluid collection. No acute hemorrhage, mass lesion or midlin e shift. Brainstem is unremarkable. There is a questionable focus of hyperintense signal on diffusio n sequence along the margin of the right frontal sulcus. It also demonstrates a questionable hypointe nse ADC signal and hyperintense FLAIR signal. There is a focus of CSF signal within the right posteri or parietal lobe suggestive of old ischemia. Globes are symmetrical. Sinuses are aerated. Osseous str uctures are intact. IMPRESSION: 1. Questionable subtle hyperintense diffusion with corresponding hypointense ADC signal surrounding t he sulcus of the right frontal lobe as described above. This could represent a focal area of artifact versus resolving area of previous ischemia. No superimposed hemorrhage. 2. Moderate atrophy and chronic microvascular ischemic changes. Reviewed by: Josefina Doshi MD on 04/16/2021 8:09 AM PDT Approved by: Josefina Doshi MD on 04/16/2021 8:09 AM PDT Station ID: [id number]
[2021-04-16] MEDS: DOCUSATE SODIUM 250 MG CAPSULE PO SCH (09:30)
[2021-04-16] MEDS: SENNA 8.6 MG TABLET PO SCH (09:30)
[2021-04-16] MEDS: ENOXAPARIN 60 MG/0.6 ML SYRINGE SUBQ SCH (09:31)
[2021-04-16] MEDS: TAMSULOSIN 0.4 MG CAPSULE PO SCH (09:31)
[2021-04-16] MEDS: FINASTERIDE 5 MG TABLET PO SCH (09:31)
[2021-04-16] MEDS: polyethylene glycoL 3350 17 GM PACKET PO SCH (09:32)
[2021-04-16] MEDS: levETIRAcetam INJ 500 MG in SODIUM CHLORIDE 0.9% 100ML 100 ML IV SCH (10:24)
[2021-04-16] MEDS: METOPROLOL 5 MG/5 ML VIAL IVP SCH ×2 (10:26→22:17)
[2021-04-16] MEDS: ACETAMINOPHEN 1,000 MG/100 ML 100 ML IV PRN (11:26)
[2021-04-16] MEDS: LORazepam 2 MG/ML VIAL IVP PRN ×2 (11:28→20:26)
--- NOTE | 2021-04-16 16:43 | PROVIDER PROGRESS NOTE ---
Assessment/Plan - Problem List (1) Left-sided muscle weakness Assessment/Plan: At 1630, his RN informed me that she noticed L leg dragging behind R, L hand not able to squeeze and poss L facial droop with alot of secretions/saliva drooling. I examined patient and concurred. BP was stable, HR 118 in regular rhythm. A head CT stroke protocol has been ordered. I am signing this patient out to the Project Management It Specialist, Dr Perkins, for stroke evaluation and management. (2) Post-ictal confusion Assessment/Plan: This morning, he was cooperative with swallowing po meds and following directions after he had pulled out his Rodriguez at 0500. Then he was still intermittently confused. The brain MRI was done last night, results returned this a.m. and showed a possible subacute R sided Plan to discuss with Neurology for further recommendations about managing his prolonged confusion. But now #1 (acute L sided weakness) will take precedence in discussion. (3) Seizure as late effect of cerebrovascular accident (CVA) Assessment/Plan: Will give either IV or p.o. forms of the higher doses of Keppra as was advised. 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 It was a parietal stroke. The patient is "cross eyed" but the old records and the says this has been since childhood. The patient is able to ambulate without any assistance here, is not ataxic. We will continue his statin and anticoagulant, if he will swallow oral meds. Otherwise will need to change to therapeutic sq Lovenox. (5) [place] (hard of hearing) Assessment/Plan: The daughter reports to me today that he has 20% hearing in 1 year and 5% hearing in the other ear. (6) Cardiomyopathy Assessment/Plan: At the time of the stroke, a resting Echo showed a depressed LVEF. He was to have cardiology evaluation as an outpatient. It is unknown if he has had a work-up for coronary ischemia with a stress test or an angiogram. We decreased the lisinopril from maximum dose of 20 mg a day down to just 5 mg daily because of his "soft" blood pressure after having received benzodiazepines yesterday. We will continue his Coreg and JEANNINE inhibitor while here, if he will swallow his pills, otherwise will use iv B-shivam. There is no iv substitute for ACEs (7) Afib Assessment/Plan: When he presented with status epilepticus in 05/2020, his EKG showed A. fib. Since that time he has been on anticoagulation with Eliquis. We will continue his Eliquis twice daily dosing here, if he will take oral pills, otherwise will change to therapeutic Lovenox. 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 - Current Meds Current Meds: Current Medications Generic Name Dose Route Start Last Admin Trade Name Freq PRN Reason Stop Dose Admin Docusate Sodium 250 - 500 mg 04/16/21 09:00 04/16/21 09:30 Docusate Sodium 250 Mg Capsule PO 250 mg DAILY PHAN Administration Enoxaparin Sodium 60 mg 04/14/21 21:00 04/16/21 09:31 Enoxaparin 60 Mg/0.6 Ml Syringe SUBQ 60 mg BID PHAN Administration Finasteride 5 mg 04/14/21 09:00 04/16/21 09:31 Finasteride 5 Mg Tablet PO 5 mg DAILY PHAN Administration Lorazepam 0.5 mg 04/13/21 17:16 04/16/21 11:28 Lorazepam 2 Mg/Ml Vial IVP 0.5 mg Q2H PRN Administration Agitation Metoprolol Tartrate 2.5 mg 04/14/21 21:00 04/16/21 10:26 Metoprolol 5 Mg/5 Ml Vial IVP 2.5 mg BID PHAN Administration Polyethylene Glycol 17 gm 04/16/21 09:00 04/16/21 09:32 Polyethylene Glycol 3350 17 Gm Packet PO 17 gm DAILY PHAN Administration Senna 8.6 - 17.2 mg 04/16/21 09:00 04/16/21 09:30 Senna 8.6 Mg Tablet PO 8.6 mg DAILY PHAN Administration Sodium Chloride 10 ml 04/13/21 17:14 04/14/21 22:06 Sodium Chloride Flush 0.9% 10 Ml Syringe IVP 10 ml PRN PRN Administration NEEDED PER PROVIDER ORDERS Sodium Chloride 10 ml 04/14/21 01:00 04/16/21 10:35 Sodium Chloride Flush 0.9% 10 Ml Syringe IVP 10 ml 0100,0900,1700 PHAN Administration Tamsulosin HCl 0.4 mg 04/14/21 09:00 04/16/21 09:31 Tamsulosin 0.4 Mg Capsule PO 0.4 mg DAILY PHAN Administration - Lab Result Fish Bone Diagrams: 04/13/21 13:10 04/13/21 13:10 - Additional Planning My Orders: My Active Orders 04/16/21 09:00 Docusate Sodium 250Mg Capsule [Colace 250Mg Capsule] 250 - 500 mg PO DAILY Senna [Senokot] 8.6 - 17.2 mg PO DAILY polyethylene glycoL 3350 [Miralax] 17 gm PO DAILY 04/16/21 15:44 Acetaminophen [Tylenol] 1,000 mg PO Q6H PRN 04/16/21 16:37 Head W/O Stroke Protocol [CT] Stat 04/16/21 16:39 DIET [NPO except Meds] [DIET] 04/16/21 21:00 levETIRAcetam INJ [Keppra Inj] 500 mg Sodium Chloride 0.9% 100Ml [Normal Saline 0.9% 100Ml] 100 ml IV BID Subjective - Subjective Nursing Reports: Other (More cooperative this morning. new L sided weakness this afternoon.) Objective Vital Signs: Vital Signs - 24 hr 04/15/21 04/15/21 04/16/21 20:44 23:50 08:00 Temperature 36.9 C 36.8 C Heart Rate [ 78 80 Brachial] Respiratory 18 18 Rate Blood Pressure 129/68 Blood Pressure 126/63 159/75 H [right arm] O2 Saturation 97 98 04/16/21 04/16/21 15:19 16:37 Temperature 36.2 C L Heart Rate [ 122 H 115 H Brachial] Respiratory 22 20 Rate Blood Pressure Blood Pressure 135/84 H 125/87 H [right arm] O2 Saturation 97 Oxygen O2 Source Room air I&O (Last 24 Hrs): Intake and Output Totals x24h 04/14/21 04/15/21 04/16/21 23:59 23:59 23:59 Intake Total 365 650 765 Output Total 604 475 150 Balance -239 175 615 General: Alert, Other (Supine in bed, L leg flaccid) HEENT: Mucous membr. moist/pink Neck: Supple Neuro: Other (Focal L arm and leg weakness L facial droop.) Cardiovascular: Regular rate Respiratory: No respiratory distress Abdomen: Soft Extremities: No edema - Results Results: Laboratory Results WBC 9.1 x10^3/uL (4.8-10.8) 04/13/21 13:10 RBC 4.29 10^6/uL (4.70-6.10) L 04/13/21 13:10 Hgb 13.2 g/dL (14.0-18.0) L 04/13/21 13:10 Hct 39.6 % (42.0-52.0) L 04/13/21 13:10 MCV 92.3 fL (80.0-94.0) 04/13/21 13:10 MCH 30.8 pg (27.0-31.0) 04/13/21 13:10 MCHC 33.3 g/dL (32.0-36.0) 04/13/21 13:10 RDW 13.0 % (12.0-15.0) 04/13/21 13:10 Plt Count 299 10^3/uL (130-450) 04/13/21 13:10 MPV 9.0 fL (7.4-11.4) 04/13/21 13:10 Neut # (Auto) 8.0 10^3/uL (1.5-6.6) H 04/13/21 13:10 Lymph # (Auto) 0.7 10^3/uL (1.5-3.5) L 04/13/21 13:10 [place] # (Auto) 0.3 10^3/uL (0.0-1.0) 04/13/21 13:10 Eos # (Auto) 0.0 10^3/uL (0.0-0.7) 04/13/21 13:10 Baso # (Auto) 0.1 10^3/uL (0.0-0.1) 04/13/21 13:10 Absolute Nucleated RBC 0.00 x10^3/uL 04/13/21 13:10 Nucleated RBC % 0.0 /100WBC 04/13/21 13:10 Sodium 139 mmol/L (135-145) 04/13/21 13:10 Potassium 3.6 mmol/L (3.5-5.0) 04/13/21 13:10 Chloride 107 mmol/L (101-111) 04/13/21 13:10 Carbon Dioxide 22 mmol/L (21-32) 04/13/21 13:10 Anion Gap 10.0 (6-13) 04/13/21 13:10 BUN 26 mg/dL (6-20) H 04/13/21 13:10 Creatinine 1.2 mg/dL (0.6-1.2) 04/13/21 13:10 Estimated GFR (MDRD) 58 (>89) L 04/13/21 13:10 Glucose 130 mg/dL (70-100) H 04/13/21 13:10 Calcium 8.9 mg/dL (8.5-10.3) 04/13/21 13:10 Magnesium 2.1 mg/dL (1.7-2.8) 04/13/21 13:10 Total Bilirubin 0.8 mg/dL (0.2-1.0) 04/13/21 13:10 AST 14 IU/L (10-42) 04/13/21 13:10 ALT 12 IU/L (10-60) 04/13/21 13:10 Alkaline Phosphatase 92 IU/L (42-121) 04/13/21 13:10 Total Protein 6.4 g/dL (6.7-8.2) L 04/13/21 13:10 Albumin 3.8 g/dL (3.2-5.5) 04/13/21 13:10 Globulin 2.6 g/dL (2.1-4.2) 04/13/21 13:10 Albumin/Globulin Ratio 1.5 (1.0-2.2) 04/13/21 13:10 Urine Color BROWN 04/15/21 11:50 Urine Clarity CLOUDY (CLEAR) 04/15/21 11:50 Urine pH 6.0 PH (5.0-7.5) 04/15/21 11:50 Ur Specific [place] 1.025 (1.002-1.030) 04/15/21 11:50 Urine Protein 100 mg/dL (NEGATIVE) H 04/15/21 11:50 Urine Glucose (UA) NEGATIVE mg/dL (NEGATIVE) 04/15/21 11:50 Urine Ketones >=80 mg/dL (NEGATIVE) H 04/15/21 11:50 Urine Occult Blood LARGE (NEGATIVE) H 04/15/21 11:50 Urine Nitrite POSITIVE (NEGATIVE) H 04/15/21 11:50 Urine Bilirubin NEGATIVE (NEGATIVE) 04/15/21 11:50 Urine Urobilinogen 1 (NORMAL) E.U./dL (NORMAL) 04/15/21 11:50 Ur Leukocyte Esterase TRACE (NEGATIVE) H 04/15/21 11:50 Urine RBC TNTC /HPF (0-5) H 04/15/21 11:50 Urine WBC 0-3 /HPF (0-3) 04/15/21 11:50 Ur Squamous Epith Cells RARE Squamous (<= Few) 04/15/21 11:50 Amorphous Sediment Few /LPF 04/15/21 11:50 Urine Bacteria Few /HPF (None Seen) 04/15/21 11:50 Urine Culture Comments INDICATED 04/15/21 11:50 Nasal Adenovirus (PCR) NOT DETECTED 04/13/21 16:48 Nasal B. parapertussis DNA (PCR) NOT DETECTED 04/13/21 16:48 Nasal Coronavir 229E PCR NOT DETECTED 04/13/21 16:48 Nasal Coronavir HKU1 PCR NOT DETECTED 04/13/21 16:48 Nasal Coronavir NL63 PCR NOT DETECTED 04/13/21 16:48 Nasal Coronavir OC43 PCR NOT DETECTED 04/13/21 16:48 Nasal Enterovir/Rhinovir PCR NOT DETECTED 04/13/21 16:48 Nasal Influenza B PCR NOT DETECTED 04/13/21 16:48 Nasal Influenza A PCR NOT DETECTED 04/13/21 16:48 Nasal Parainfluen 1 PCR NOT DETECTED 04/13/21 16:48 Nasal Parainfluen 2 PCR NOT DETECTED 04/13/21 16:48 Nasal Parainfluen 3 PCR NOT DETECTED 04/13/21 16:48 Nasal Parainfluen 4 PCR NOT DETECTED 04/13/21 16:48 Nasal RSV (PCR) NOT DETECTED 04/13/21 16:48 Nasal B.pertussis DNA PCR NOT DETECTED 04/13/21 16:48 Nasal C.pneumoniae (PCR) NOT DETECTED 04/13/21 16:48 Mian Human Metapneumo PCR NOT DETECTED 04/13/21 16:48 Nasal M.pneumoniae (PCR) NOT DETECTED 04/13/21 16:48 Nasal SARS-CoV-2 (PCR) NOT DETECTED 04/13/21 16:48 Ethyl Alcohol < 5.0 mg/dL 04/13/21 13:10
--- NOTE | 2021-04-16 17:13 | CT Report ---
PROCEDURE: Head W/O Stroke Protocol INDICATIONS: sudden L sided weakness TECHNIQUE: Noncontrast 4.5 mm thick angled axial sections acquired from the foramen magnum to the vertex, with c oronal reformats. For radiation dose reduction, the following was used: automated exposure control, adjustment of mA and/or kV according to patient size. COMPARISON: MRI dated 04/15/2021, CT dated 04/13/2021 and 05/20/2020 FINDINGS: Image quality: Diagnostic. CSF spaces: Basal cisterns are patent. No extra-axial fluid collections. Ventricles are normal in size and shape. Brain: Stable age-related senescent changes and sequela of chronic small vessel ischemic disease. Th ere is diffuse cortical volume loss as before. No midline shift. No intracranial masses or hemorrhag e. Ruiz-white matter interface is normal. Atherosclerotic calcifications of the intracranial arteria l vasculature. Skull and face: Calvarium and visualized facial bones are intact, without suspicious lesions. Sinuses: Visualized sinuses and mastoids are clear. IMPRESSION: 1. CT head without acute intracranial abnormalities. 2. Stable age-related senescent changes and sequela of chronic small vessel ischemic disease. 3. If there is persistent clinical concern for acute stroke, MRI could be considered to further evalu ate. This study fulfills neurological imaging criteria for inclusion or exclusion of acute stroke therapie s based on available published neurological imaging guidelines. Findings were discussed with Dr. Elizalde at 1710 hrs. Consider limited MRI brain to evaluate for a cute ischemia since yesterday's MRI if there are new focal symptoms. Reviewed by: Aniceto Smith MD on 04/16/2021 5:12 PM PDT Approved by: Aniceto Smtih MD on 04/16/2021 5:12 PM PDT Station ID: [id number]
[2021-04-16] MEDS: ACETAMINOPHEN 500 MG TABLET PO PRN (18:33)
[2021-04-16] MEDS ORDERED: IOVERSOL 320 100 ML VIAL IVP ONE ×2 (20:16→21:56)
[2021-04-16] MEDS: SODIUM CHLORIDE FLUSH 0.9% 10 ML SYRINGE IVP PRN ×2 (20:26→22:18)
--- NOTE | 2021-04-16 20:55 | PROVIDER PROGRESS NOTE ---
Apparatus Repair Mechanic Note - Apparatus Repair Mechanic Note Apparatus Repair Mechanic Note: Around 4:30 PM this afternoon it was brought to the physician on-call's attention that the patient seemed to be dragging his left leg and was unable to squeeze with his left hand. Furthermore he appeared to have a left facial droop with a lot of secretions/saliva drooling. Patient was examined by the physician and this observations where confirmed. Head CT stroke protocol was ordered. The patient was presented to me at sign out around 7pm. On examination the left sided weakness and left facial droop was noticeable. He was awake and alert. He appeared to be resting comfortably in bed. There is question to his ability to comprehend. Potential barriers may be "hard of hearing". At the time he was given an NIH stroke scale of 6. Patient's case was discussed with telestroke neurologist Dr. Zeferino oCtter who recommended doing a CT angio of the head and neck. He also did a video evaluation of the patient. The results of the CT angio of the head and neck were negative. Dr. Cotter suggested that in the absence of any occlusion on imaging this could possibly be due to post ictal hemiparesis He recommended increasing the dose of Keppra which was changed from Keppra 500 mg IV twice daily to 750 mg IV twice daily to start tomorrow 04/17/2021 at 9 AM. In the absence of any occlusion, patient would not be given TPA. Furthermore the patient would not be a TPA candidate because the MRI done around 8 AM today 04/16/2021 raised the possibility of subacute infarct. Finally the patient's last known well time was at shift change around 3 PM today. He also recommended a repeat MRI of the brain in the morning. This has been ordered. The patient's was notified Of the new developments in his clinical condition tonight. She will be at bedside tomorrow morning. PT/OT and speech evaluation has also been ordered A 2D echocardiogram with bubble studies was ordered for further evaluation. Patient's Lovenox was held.
[2021-04-16] MEDS ORDERED: levETIRAcetam INJ 500 MG in SODIUM CHLORIDE 0.9% 100ML 100 ML IV SCH (21:00)
[2021-04-16] MEDS ORDERED: levETIRAcetam 250 MG TABLET PO SCH (21:00)
--- NOTE | 2021-04-16 22:17 | CT Report ---
PROCEDURE: ANGIO HEAD W/WO INDICATIONS: left-sided weakness CONTRAST: IV CONTRAST: Optiray 320 ml: 80 PO CONTRAST: *NO PO CONTRAST TECHNIQUE: Precontrast 4.5 mm thick angled axial sections acquired from the foramen magnum to the vertex. Afte r the administration of intravenous contrast, 1 mm thick sections acquired through the [place] of [place] is. Postcontrast 4.5 mm thick sections then re-acquired from the foramen magnum to the vertex. 3-di mensional gitzecm-zwxbvxvjo-aqcnlczkoz (MIP) and/or volume rendering reformats were acquired of the c entral intracranial vasculature. For radiation dose reduction, the following was used: automated ex posure control, adjustment of mA and/or kV according to patient size. COMPARISON: 04/13/2021, 04/16/2021, earlier the same day FINDINGS: Image quality: Excellent. Anterior circulation: Intracranial internal carotid arteries are normal in size and flow. The flow within the paired anterior cerebral arteries is normal and symmetric. The flow within the middle cer ebral arteries is normal and symmetric. The anterior communicating artery is seen. No aneurysms are seen. Posterior circulation: Visualized portions of the vertebral arteries demonstrate normal caliber, and join to form a normal appearing basilar artery. Chronic focal narrowing of the right mid P2 artery w ith near normalization of the caliber distally.. No aneurysms are seen. CSF spaces: Ventricles are normal in size and shape. Basal cisterns are patent. No extra-axial flu id collections. Brain: No midline shift. No intracranial bleeds or masses. Mild cortical volume loss. No acute chidi ma. Chronic encephalomalacia in the right inferior occipital lobe. Mild diffuse hypodensity in the pe riventricular white matter of the parietal lobes bilaterally. Ruiz-white matter interface appears int act. Skull and face: Calvarium and facial bones appear intact, without suspicious lesions. Sinuses: Visualized sinuses and mastoids are clear. IMPRESSION: 1. No acute arterial occlusion. 2. 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 3. Remote right occipital lobe infarct superimposed on mild chronic microvascular ischemic changes. Reviewed by: Martina Thomason MD on 04/16/2021 10:15 PM PDT Approved by: Martina Thomason MD on 04/16/2021 10:15 PM PDT Station ID: [id number]
--- NOTE | 2021-04-16 22:22 | CT Report ---
PROCEDURE: ANGIO NECK W INDICATIONS: left-sided weakness CONTRAST: IV CONTRAST: Optiray 320 ml: 80 PO CONTRAST: *NO PO CONTRAST TECHNIQUE: After the administration of intravenous contrast, 1.5 mm axial sections acquired from the aortic arch to the [place] of Vo. Coronal 3-D maximum intensity projection (MIP) and/or volume rendering ref ormats were then performed. For radiation dose reduction, the following was used: automated exposur e control, adjustment of mA and/or kV according to patient size. COMPARISON: 04/13/2021 FINDINGS: Image quality: Excellent. Carotid system: The great vessels demonstrate a conventional anatomy as they arise from the aortic a rch. The origins of the common carotid arteries appear patent. The common carotid arteries demonstr ate normal calibers and courses. The bifurcation regions appear normal bilaterally. The internal ca rotid arteries demonstrate normal caliber and course. Posterior circulation: The origins of the vertebral arteries appear patent. The more superior porti ons of the vertebral arteries demonstrate normal course and caliber. They join to form a normal appe aring basilar artery. Soft tissues: Visualized neck soft tissues demonstrate no suspicious abnormalities. The thyroid is normal in size and there are no incidental findings. Bones: No suspicious bony lesions. Severe degenerative changes in the cervical spine. Visualized ce rvical spine appears normally aligned. IMPRESSION: 1. No acute hemodynamically significant stenosis in the carotid or vertebral system. 2. No significant change compared to the prior study. The estimate of stenosis included in the report of the imaging study was calculated using the NASCET method Reviewed by: Martina Thomason MD on 04/16/2021 10:21 PM PDT Approved by: Martina Thomason MD on 04/16/2021 10:21 PM PDT Station ID: [id number]
[2021-04-16] MEDS ORDERED: SODIUM CHLORIDE 0.9% 1,000 ML IV ONE (22:51)
[2021-04-17] MEDS: SODIUM CHLORIDE FLUSH 0.9% 10 ML SYRINGE IVP SCH ×3 (01:51→19:19)
[2021-04-17] MEDS: SENNA 8.6 MG TABLET PO SCH (08:11)
[2021-04-17] MEDS: FINASTERIDE 5 MG TABLET PO SCH ×3 (08:12→21:17)
[2021-04-17] MEDS: TAMSULOSIN 0.4 MG CAPSULE PO SCH (08:12)
[2021-04-17] MEDS: METOPROLOL 5 MG/5 ML VIAL IVP SCH ×2 (08:41→21:15)
[2021-04-17] MEDS: ACETAMINOPHEN 500 MG TABLET PO PRN (08:43)
[2021-04-17] MEDS: DOCUSATE SODIUM 250 MG CAPSULE PO SCH (08:43)
[2021-04-17] MEDS: polyethylene glycoL 3350 17 GM PACKET PO SCH (08:50)
[2021-04-17] MEDS ORDERED: levETIRAcetam INJ 750 MG in SODIUM CHLORIDE 0.9% 100ML 100 ML IV SCH ×2 (09:00→11:00)
[2021-04-17] MEDS ORDERED: LORazepam 2 MG/ML VIAL IVP ONE (10:45)
--- NOTE | 2021-04-17 12:26 | MRI Report ---
PROCEDURE: Brain W/O INDICATIONS: left sided weakness TECHNIQUE: Noncontrast axial T1 spin echo, axial T2 fast spin echo, sagittal and axial FLAIR, coronal T2 fast sp in echo, axial gradient echo, axial diffusion and ADC through the brain. COMPARISON: None. FINDINGS: Image quality: Excellent. CSF Spaces: Basal cisterns are patent. No extra-axial fluid collections. Ventricles are normal in size and shape. Brain: No intracranial masses or hemorrhage. There is very subtle restricted diffusion and cortical pattern and involving the ruiz-white junction involving the temporal lobes, occipital lobes, and pos terior frontal lobes. This predominantly involves right-sided structures, but also involves some left -sided structures, to a lesser extent. Ruiz/white matter interface is normal. Brainstem appears norm al. Diffusion-weighted images demonstrate no acute ischemic insult. Focal area of encephalomalacia i n the right occipital lobe likely represents a small old infarct. There is age-related volume loss an d mild to moderate small vessel ischemic change. Normal intravascular flow voids are present. Skull and face: Calvarium has normal marrow signal. Orbits appear normal. Sinuses: Sinuses and mastoids are clear. IMPRESSION: 1. Very subtle restricted diffusion in a cortical and ruiz-white junction region location involving t he temporal lobes, occipital lobes, posterior frontal lobes. Differential diagnosis includes Vaughn-Cr eutzfeldt disease, differential diagnosis includes autoimmune encephalitis, other etiologies of encep halitis, hypoxic brain injury, and osmotic demyelination demyelination 2. Old focal right occipital infarct, mild to moderate small vessel ischemic change. Reviewed by: Johnny Guardado MD on 04/17/2021 12:25 PM PDT Approved by: Johnny Guardado MD on 04/17/2021 12:25 PM PDT Station ID: [id number]
[2021-04-17] MEDS: levETIRAcetam 500 MG/5 ML UDC PO SCH ×2 (13:56→21:24)
[2021-04-17] MEDS: ASPIRIN EC 81 MG TABLET PO SCH (14:07)
--- NOTE | 2021-04-17 16:50 | PROVIDER PROGRESS NOTE ---
Assessment/Plan - Problem List (1) Acute CVA (cerebrovascular accident) Assessment/Plan: Yesterday late afternoon, he developed L leg weakness, L hand not able to squeeze and arm could not be lifted, and poss L facial droop with alot of secretions/saliva drooling. He had a STAT head CT stroke protocol and a Telestroke consult. The impression from Neuro was Acute CVA. Will order neuro checks q4h. Also needs 1:1 sitter, this was already ordered with his persistent confusion from post-ictal status. Will start 1 baby aspirin daily, stop Eliquis to prevent hemorrhagic transformation. Will order Echo w/ bubble studty to evaluate for source of embolism. Will order eval from PT, OT and Speech Therapy. (2) Post-ictal confusion Assessment/Plan: This morning, he was cooperative with swallowing po meds and following directions and walking in hallway. He was still intermittently confused. Plan to discuss with Neurology for further recommendations about managing his prolonged confusion. But now #1 (acute L sided weakness) will take precedence in discussion. (3) Seizure as late effect of cerebrovascular accident (CVA) Assessment/Plan: Will give either IV or p.o. forms of the higher doses of Keppra as was advised. 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 It was a parietal stroke in mid-2019. 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 We will continue his statin and change anticoagulant to daily aspirin (5) [place] (hard of hearing) Assessment/Plan: As per Hx, he has 5% hearing on one side 20% on other, wears NO hearing aides, per . We need to take off mask, as he reads lips or lean in to his ears, to speak so he will understand (6) Cardiomyopathy Assessment/Plan: At the time of the stroke in mid, a resting Echo showed a depressed LVEF. He was to have cardiology evaluation as an outpatient. It is unknown if he has had a work-up for coronary ischemia with a stress test or an angiogram. We decreased the lisinopril from maximum dose of 20 mg a day down to just 5 mg daily because of his "soft" blood pressures. We will continue his Coreg and JEANNINE inhibitor while here, if he will swallow his pills. (7) Afib Assessment/Plan: When he presented with status epilepticus in 05/2020, his EKG showed A. fib. Since that time he was on anticoagulation with Eliquis. We will stop Eliquis to prevent hemorrhagic transformation of the new CVA - Current Meds Current Meds: Current Medications Generic Name Dose Route Start Last Admin Trade Name Freq PRN Reason Stop Dose Admin Acetaminophen 1,000 mg 04/16/21 15:44 04/17/21 08:43 Acetaminophen 500 Mg Tablet PO 1,000 mg Q6H PRN Administration Pain or Fever > 38C (100.4F) Aspirin 81 mg 04/17/21 14:00 04/17/21 14:07 Aspirin Ec 81 Mg Tablet PO Not Given DAILY PHAN Docusate Sodium 250 - 500 mg 04/16/21 09:00 04/17/21 08:43 Docusate Sodium 250 Mg Capsule PO 250 mg DAILY PHAN Administration Levetiracetam 750 mg 04/17/21 12:00 04/17/21 13:56 Levetiracetam 500 Mg/5 Ml Udc PO 750 mg BID PHAN Administration Lorazepam 0.5 mg 04/13/21 17:16 04/16/21 20:26 Lorazepam 2 Mg/Ml Vial IVP 0.5 mg Q2H PRN Administration Agitation Metoprolol Tartrate 2.5 mg 04/14/21 21:00 04/17/21 08:41 Metoprolol 5 Mg/5 Ml Vial IVP 2.5 mg BID PHAN Administration Polyethylene Glycol 17 gm 04/16/21 09:00 04/17/21 08:50 Polyethylene Glycol 3350 17 Gm Packet PO 17 gm DAILY PHAN Administration Senna 8.6 - 17.2 mg 04/16/21 09:00 04/17/21 08:11 Senna 8.6 Mg Tablet PO 8.6 mg DAILY PHAN Administration Sodium Chloride 10 ml 04/13/21 17:14 04/16/21 22:18 Sodium Chloride Flush 0.9% 10 Ml Syringe IVP 10 ml PRN PRN Administration NEEDED PER PROVIDER ORDERS Sodium Chloride 10 ml 04/14/21 01:00 04/17/21 08:42 Sodium Chloride Flush 0.9% 10 Ml Syringe IVP 10 ml 0100,0900,1700 PHAN Administration Tamsulosin HCl 0.4 mg 04/14/21 09:00 04/17/21 08:12 Tamsulosin 0.4 Mg Capsule PO 0.4 mg DAILY PHAN Administration - Lab Result Fish Bone Diagrams: 04/13/21 13:10 04/13/21 13:10 - Additional Planning My Orders: My Active Orders 04/17/21 09:02 Neuro Check [RC] Q4HR 04/17/21 Lunch DIET [Soft Mechanical Diet] [DIET] 04/17/21 12:00 levETIRAcetam [Keppra] 750 mg PO BID 04/17/21 14:00 Aspirin EC [Ecotrin] 81 mg PO DAILY 04/17/21 21:00 Finasteride [Proscar] 5 mg PO BID Subjective - Subjective Nursing Reports: Other (Trying to get OOB, L arm is weak, speech is normal) Objective Vital Signs: Vital Signs - 24 hr 04/16/21 04/16/21 04/16/21 18:03 21:00 22:17 Temperature 36.7 C Heart Rate [ 113 H 115 H Brachial] Respiratory 24 20 Rate Blood Pressure 131/71 H Blood Pressure 144/82 H 133/82 H [right arm] O2 Saturation 96 95 04/16/21 04/17/21 04/17/21 22:26 00:00 00:40 Temperature 36.8 C Heart Rate [ 111 H 91 Brachial] Respiratory 20 Rate Blood Pressure Blood Pressure 119/69 135/77 H 133/95 H [right arm] O2 Saturation 100 04/17/21 04/17/21 04/17/21 03:00 05:26 08:07 Temperature 36.6 C 36.6 C Heart Rate [ 95 95 89 Brachial] Respiratory 18 18 12 Rate Blood Pressure Blood Pressure 132/69 H 145/85 H 94/61 [right arm] O2 Saturation 97 95 04/17/21 04/17/21 04/17/21 08:09 08:20 08:41 Temperature Heart Rate [ 92 89 Brachial] Respiratory Rate Blood Pressure 170/83 H Blood Pressure 132/70 H 117/76 [right arm] O2 Saturation 04/17/21 04/17/21 08:47 08:49 Temperature 36.5 C Heart Rate [ Brachial] Respiratory Rate Blood Pressure Blood Pressure 154/71 H [right arm] O2 Saturation 97 Oxygen O2 Source Room air I&O (Last 24 Hrs): Intake and Output Totals x24h 04/15/21 04/16/21 04/17/21 23:59 23:59 23:59 Intake Total 868 852 6460 Output Total 475 500 550 Balance 175 470 450 General: Other (Awake, confused, restless) HEENT: Mucous membr. moist/pink, Other Neck: Supple, No JVD Neuro: Other (L leg 2/5, L arm 2/5, RN reports he chews on R side and swallowed without choking) Cardiovascular: Regular rate Respiratory: No respiratory distress Abdomen: Soft Extremities: No edema - Results Results: Laboratory Results WBC 9.1 x10^3/uL (4.8-10.8) 04/13/21 13:10 RBC 4.29 10^6/uL (4.70-6.10) L 04/13/21 13:10 Hgb 13.2 g/dL (14.0-18.0) L 04/13/21 13:10 Hct 39.6 % (42.0-52.0) L 04/13/21 13:10 MCV 92.3 fL (80.0-94.0) 04/13/21 13:10 MCH 30.8 pg (27.0-31.0) 04/13/21 13:10 MCHC 33.3 g/dL (32.0-36.0) 04/13/21 13:10 RDW 13.0 % (12.0-15.0) 04/13/21 13:10 Plt Count 299 10^3/uL (130-450) 04/13/21 13:10 MPV 9.0 fL (7.4-11.4) 04/13/21 13:10 Neut # (Auto) 8.0 10^3/uL (1.5-6.6) H 04/13/21 13:10 Lymph # (Auto) 0.7 10^3/uL (1.5-3.5) L 04/13/21 13:10 [place] # (Auto) 0.3 10^3/uL (0.0-1.0) 04/13/21 13:10 Eos # (Auto) 0.0 10^3/uL (0.0-0.7) 04/13/21 13:10 Baso # (Auto) 0.1 10^3/uL (0.0-0.1) 04/13/21 13:10 Absolute Nucleated RBC 0.00 x10^3/uL 04/13/21 13:10 Nucleated RBC % 0.0 /100WBC 04/13/21 13:10 Sodium 139 mmol/L (135-145) 04/13/21 13:10 Potassium 3.6 mmol/L (3.5-5.0) 04/13/21 13:10 Chloride 107 mmol/L (101-111) 04/13/21 13:10 Carbon Dioxide 22 mmol/L (21-32) 04/13/21 13:10 Anion Gap 10.0 (6-13) 04/13/21 13:10 BUN 26 mg/dL (6-20) H 04/13/21 13:10 Creatinine 1.2 mg/dL (0.6-1.2) 04/13/21 13:10 Estimated GFR (MDRD) 58 (>89) L 04/13/21 13:10 Glucose 130 mg/dL (70-100) H 04/13/21 13:10 Calcium 8.9 mg/dL (8.5-10.3) 04/13/21 13:10 Magnesium 2.1 mg/dL (1.7-2.8) 04/13/21 13:10 Total Bilirubin 0.8 mg/dL (0.2-1.0) 04/13/21 13:10 AST 14 IU/L (10-42) 04/13/21 13:10 ALT 12 IU/L (10-60) 04/13/21 13:10 Alkaline Phosphatase 92 IU/L (42-121) 04/13/21 13:10 Total Protein 6.4 g/dL (6.7-8.2) L 04/13/21 13:10 Albumin 3.8 g/dL (3.2-5.5) 04/13/21 13:10 Globulin 2.6 g/dL (2.1-4.2) 04/13/21 13:10 Albumin/Globulin Ratio 1.5 (1.0-2.2) 04/13/21 13:10 Urine Color BROWN 04/15/21 11:50 Urine Clarity CLOUDY (CLEAR) 04/15/21 11:50 Urine pH 6.0 PH (5.0-7.5) 04/15/21 11:50 Ur Specific [place] 1.025 (1.002-1.030) 04/15/21 11:50 Urine Protein 100 mg/dL (NEGATIVE) H 04/15/21 11:50 Urine Glucose (UA) NEGATIVE mg/dL (NEGATIVE) 04/15/21 11:50 Urine Ketones >=80 mg/dL (NEGATIVE) H 04/15/21 11:50 Urine Occult Blood LARGE (NEGATIVE) H 04/15/21 11:50 Urine Nitrite POSITIVE (NEGATIVE) H 04/15/21 11:50 Urine Bilirubin NEGATIVE (NEGATIVE) 04/15/21 11:50 Urine Urobilinogen 1 (NORMAL) E.U./dL (NORMAL) 04/15/21 11:50 Ur Leukocyte Esterase TRACE (NEGATIVE) H 04/15/21 11:50 Urine RBC TNTC /HPF (0-5) H 04/15/21 11:50 Urine WBC 0-3 /HPF (0-3) 04/15/21 11:50 Ur Squamous Epith Cells RARE Squamous (<= Few) 04/15/21 11:50 Amorphous Sediment Few /LPF 04/15/21 11:50 Urine Bacteria Few /HPF (None Seen) 04/15/21 11:50 Urine Culture Comments INDICATED 04/15/21 11:50 Nasal Adenovirus (PCR) NOT DETECTED 04/13/21 16:48 Nasal B. parapertussis DNA (PCR) NOT DETECTED 04/13/21 16:48 Nasal Coronavir 229E PCR NOT DETECTED 04/13/21 16:48 Nasal Coronavir HKU1 PCR NOT DETECTED 04/13/21 16:48 Nasal Coronavir NL63 PCR NOT DETECTED 04/13/21 16:48 Nasal Coronavir OC43 PCR NOT DETECTED 04/13/21 16:48 Nasal Enterovir/Rhinovir PCR NOT DETECTED 04/13/21 16:48 Nasal Influenza B PCR NOT DETECTED 04/13/21 16:48 Nasal Influenza A PCR NOT DETECTED 04/13/21 16:48 Nasal Parainfluen 1 PCR NOT DETECTED 04/13/21 16:48 Nasal Parainfluen 2 PCR NOT DETECTED 04/13/21 16:48 Nasal Parainfluen 3 PCR NOT DETECTED 04/13/21 16:48 Nasal Parainfluen 4 PCR NOT DETECTED 04/13/21 16:48 Nasal RSV (PCR) NOT DETECTED 04/13/21 16:48 Nasal B.pertussis DNA PCR NOT DETECTED 04/13/21 16:48 Nasal C.pneumoniae (PCR) NOT DETECTED 04/13/21 16:48 Mian Human Metapneumo PCR NOT DETECTED 04/13/21 16:48 Nasal M.pneumoniae (PCR) NOT DETECTED 04/13/21 16:48 Nasal SARS-CoV-2 (PCR) NOT DETECTED 04/13/21 16:48 Ethyl Alcohol < 5.0 mg/dL 04/13/21 13:10
[2021-04-17] MEDS: LORazepam 2 MG/ML VIAL IVP PRN ×2 (19:19→21:37)
[2021-04-17] MEDS: SODIUM CHLORIDE FLUSH 0.9% 10 ML SYRINGE IVP PRN (21:38)
[2021-04-18] MEDS: SODIUM CHLORIDE FLUSH 0.9% 10 ML SYRINGE IVP SCH ×3 (06:44→15:48)
[2021-04-18] MEDS: LORazepam 2 MG/ML VIAL IVP PRN ×5 (06:50→18:54)
[2021-04-18] MEDS: polyethylene glycoL 3350 17 GM PACKET PO SCH (10:15)
[2021-04-18] MEDS: ASPIRIN EC 81 MG TABLET PO SCH ×2 (10:16→10:48)
[2021-04-18] MEDS: DOCUSATE SODIUM 250 MG CAPSULE PO SCH (10:17)
[2021-04-18] MEDS: SENNA 8.6 MG TABLET PO SCH (10:18)
[2021-04-18] MEDS: FINASTERIDE 5 MG TABLET PO SCH ×2 (10:18→22:02)
[2021-04-18] MEDS: ACETAMINOPHEN 500 MG TABLET PO PRN (10:19)
[2021-04-18] MEDS: TAMSULOSIN 0.4 MG CAPSULE PO SCH ×2 (10:19→10:48)
[2021-04-18] MEDS: levETIRAcetam 500 MG/5 ML UDC PO SCH ×2 (10:40→22:02)
[2021-04-18] MEDS: METOPROLOL 5 MG/5 ML VIAL IVP SCH ×2 (10:43→22:03)
--- NOTE | 2021-04-18 12:41 | PROVIDER PROGRESS NOTE ---
Assessment/Plan - Problem List (1) Acute CVA (cerebrovascular accident) Assessment/Plan: Two days ago, in late afternoon, he developed L leg weakness, L hand not able to squeeze and arm could not be lifted, and poss L facial droop with alot of secretions/saliva drooling. He had a STAT head CT stroke protocol and a Telestroke consult. The impression from Neuro was Acute CVA. Will continue neuro checks q4h. Also needs 1:1 sitter, this was already ordered with his persistent confusion from post-ictal status. We started 1 baby aspirin daily, stopped Eliquis (which he was on for Afib). Stopping that to prevent hemorrhagic transformation of this acute stroke. Echo w/ bubble study done yesterday showed no source of embolism. Will order eval from PT, OT and he may needs a SNF, if he follows cues. Speech Eval was cancelled since he is able to handle food and thin liquids without choking. (2) Post-ictal confusion Assessment/Plan: He is still mostly confused. Will increase prn Lorazepam for treating acute agitation. Will start nightly scheduled Seroquel. Hope to discuss with Neurology for further recommendations about managing his prolonged confusion (since it took him 3 weeks after his first onset of seizures in 05/2020, to return to baseline mental status and function, according to the ). (3) Seizure as late effect of cerebrovascular accident (CVA) Assessment/Plan: This was the initial reason for the presentation to ED. Neurology advised increasing the Keppra dose. Will give either IV or p.o. forms of the higher doses of Keppra as was advised, since last night he would not cooperate with swallowing po meds due to agitation, and missed his night dose entirely. 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 It was a parietal stroke in mid-2019. 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 We will continue his statin and changed anticoagulant Eliquis to daily aspirin (5) BLACKFEET (hard of hearing) Assessment/Plan: As per Hx, he has 5% hearing on one side 20% on other, wears no hearing aides, per . We need to take off mask, since he reads lips, or lean in to his ears, to speak so he will understand (6) Cardiomyopathy Assessment/Plan: At the time of the stroke in mid-2019, a resting Echo showed a depressed LVEF. He was to have cardiology evaluation as an outpatient. It is unknown if he has had a work-up for coronary ischemia with a stress test or an angiogram. Echo merissa yesterday showed improvement in EF to 55%, from being on his meds. We decreased the lisinopril from maximum dose of 20 mg a day down to just 5 mg daily because of his "soft" blood pressures. We will continue his Coreg and JEANNINE inhibitor while here, if he will swallow his pills. (7) Afib Assessment/Plan: When he presented with status epilepticus in 05/2020, his EKG showed A. fib. Since that time he was on anticoagulation with Eliquis. We stopped Eliquis 2 days ago to prevent hemorrhagic transformation of the new CVA - Current Meds Current Meds: Current Medications Generic Name Dose Route Start Last Admin Trade Name Freq PRN Reason Stop Dose Admin Acetaminophen 1,000 mg 04/16/21 15:44 04/18/21 10:19 Acetaminophen 500 Mg Tablet PO 1,000 mg Q6H PRN Administration Pain or Fever > 38C (100.4F) Aspirin 81 mg 04/17/21 14:00 04/18/21 10:48 Aspirin Ec 81 Mg Tablet PO Not Given DAILY PHAN Docusate Sodium 250 - 500 mg 04/16/21 09:00 04/18/21 10:17 Docusate Sodium 250 Mg Capsule PO 250 mg DAILY PHAN Administration Finasteride 5 mg 04/17/21 21:00 04/18/21 10:18 Finasteride 5 Mg Tablet PO 5 mg BID PHAN Administration Levetiracetam 750 mg 04/17/21 12:00 04/18/21 10:40 Levetiracetam 500 Mg/5 Ml Udc PO Not Given BID PHAN Metoprolol Tartrate 2.5 mg 04/14/21 21:00 04/18/21 10:43 Metoprolol 5 Mg/5 Ml Vial IVP 2.5 mg BID PHAN Administration Polyethylene Glycol 17 gm 04/16/21 09:00 04/18/21 10:15 Polyethylene Glycol 3350 17 Gm Packet PO 17 gm DAILY PHAN Administration Senna 8.6 - 17.2 mg 04/16/21 09:00 04/18/21 10:18 Senna 8.6 Mg Tablet PO 8.6 mg DAILY PHAN Administration Sodium Chloride 10 ml 04/13/21 17:14 04/17/21 21:38 Sodium Chloride Flush 0.9% 10 Ml Syringe IVP 10 ml PRN PRN Administration NEEDED PER PROVIDER ORDERS Sodium Chloride 10 ml 04/14/21 01:00 04/18/21 10:19 Sodium Chloride Flush 0.9% 10 Ml Syringe IVP 10 ml 0100,0900,1700 PHAN Administration Tamsulosin HCl 0.4 mg 04/14/21 09:00 04/18/21 10:48 Tamsulosin 0.4 Mg Capsule PO Not Given DAILY PHAN - Lab Result Fish Bone Diagrams: 04/13/21 13:10 04/13/21 13:10 - Additional Planning My Orders: My Active Orders 04/17/21 12:00 levETIRAcetam [Keppra] 750 mg PO BID 04/17/21 14:00 Aspirin EC [Ecotrin] 81 mg PO DAILY 04/17/21 21:00 Finasteride [Proscar] 5 mg PO BID 04/18/21 Lunch Soft Mechanical Diet [DIET] 04/18/21 12:00 Multivitamin W/Minerals [Theragran M] 1 tab PO DAILYWM 04/18/21 12:15 LORazepam INJ [Ativan Inj (Vial)] 1 mg IVP Q2H PRN 04/18/21 Dinner Soft Mechanical Diet [DIET] 04/18/21 21:00 QUEtiapine [SEROquel] 25 mg PO QPM Subjective - Subjective Patient Reports: Resting Comfortably, Other (Is reclining in chair, pillows propped, was conversant and appreciative to his RN while I was in room) Nursing Reports: Other (He is more verbal, stronger and still confused. He is yelling "Get me out", and "Get the gun. I'm gonna blow this place up") Objective Vital Signs: Vital Signs - 24 hr 04/17/21 04/17/21 04/17/21 17:03 18:00 20:18 Temperature 36.5 C 36.2 C L Heart Rate [ 87 116 H 127 H Brachial] Respiratory 20 22 Rate Blood Pressure Blood Pressure [Left Brachial artery] Blood Pressure 122/55 L 140/81 H 147/69 H [Right Brachial artery] O2 Saturation 99 95 04/17/21 04/17/21 04/17/21 21:15 21:17 23:43 Temperature 36.5 C Heart Rate [ 115 H 80 Brachial] Respiratory 22 18 Rate Blood Pressure 149/79 H Blood Pressure 126/59 L [Left Brachial artery] Blood Pressure 135/98 H [Right Brachial artery] O2 Saturation 98 96 04/18/21 04/18/21 04/18/21 03:00 06:00 09:00 Temperature 36.5 C 36.6 C Heart Rate [ 93 87 110 H Brachial] Respiratory 20 20 18 Rate Blood Pressure Blood Pressure 137/87 H 115/66 [Left Brachial artery] Blood Pressure 142/93 H [Right Brachial artery] O2 Saturation 97 96 04/18/21 04/18/21 10:43 12:00 Temperature 36.4 C L Heart Rate [ 88 Brachial] Respiratory 18 Rate Blood Pressure 142/93 H Blood Pressure [Left Brachial artery] Blood Pressure 136/75 H [Right Brachial artery] O2 Saturation 99 Oxygen O2 Source Room air I&O (Last 24 Hrs): Intake and Output Totals x24h 04/16/21 04/17/21 04/18/21 23:59 23:59 23:59 Intake Total 970 1360 450 Output Total 500 750 300 Balance 470 610 150 General: Alert, No acute distress HEENT: Mucous membr. moist/pink, Other (BLACKFEET) Neck: Supple Neuro: Other (L arm 3/5, L leg 4/5, BLACKFEET (which is chronic)) Cardiovascular: Regular rate Respiratory: No respiratory distress Extremities: No edema, No tenderness/swelling - Results Results: Laboratory Results WBC 9.1 x10^3/uL (4.8-10.8) 04/13/21 13:10 RBC 4.29 10^6/uL (4.70-6.10) L 04/13/21 13:10 Hgb 13.2 g/dL (14.0-18.0) L 04/13/21 13:10 Hct 39.6 % (42.0-52.0) L 04/13/21 13:10 MCV 92.3 fL (80.0-94.0) 04/13/21 13:10 MCH 30.8 pg (27.0-31.0) 04/13/21 13:10 MCHC 33.3 g/dL (32.0-36.0) 04/13/21 13:10 RDW 13.0 % (12.0-15.0) 04/13/21 13:10 Plt Count 299 10^3/uL (130-450) 04/13/21 13:10 MPV 9.0 fL (7.4-11.4) 04/13/21 13:10 Neut # (Auto) 8.0 10^3/uL (1.5-6.6) H 04/13/21 13:10 Lymph # (Auto) 0.7 10^3/uL (1.5-3.5) L 04/13/21 13:10 Pender # (Auto) 0.3 10^3/uL (0.0-1.0) 04/13/21 13:10 Eos # (Auto) 0.0 10^3/uL (0.0-0.7) 04/13/21 13:10 Baso # (Auto) 0.1 10^3/uL (0.0-0.1) 04/13/21 13:10 Absolute Nucleated RBC 0.00 x10^3/uL 04/13/21 13:10 Nucleated RBC % 0.0 /100WBC 04/13/21 13:10 Sodium 139 mmol/L (135-145) 04/13/21 13:10 Potassium 3.6 mmol/L (3.5-5.0) 04/13/21 13:10 Chloride 107 mmol/L (101-111) 04/13/21 13:10 Carbon Dioxide 22 mmol/L (21-32) 04/13/21 13:10 Anion Gap 10.0 (6-13) 04/13/21 13:10 BUN 26 mg/dL (6-20) H 04/13/21 13:10 Creatinine 1.2 mg/dL (0.6-1.2) 04/13/21 13:10 Estimated GFR (MDRD) 58 (>89) L 04/13/21 13:10 Glucose 130 mg/dL (70-100) H 04/13/21 13:10 Calcium 8.9 mg/dL (8.5-10.3) 04/13/21 13:10 Magnesium 2.1 mg/dL (1.7-2.8) 04/13/21 13:10 Total Bilirubin 0.8 mg/dL (0.2-1.0) 04/13/21 13:10 AST 14 IU/L (10-42) 04/13/21 13:10 ALT 12 IU/L (10-60) 04/13/21 13:10 Alkaline Phosphatase 92 IU/L (42-121) 04/13/21 13:10 Total Protein 6.4 g/dL (6.7-8.2) L 04/13/21 13:10 Albumin 3.8 g/dL (3.2-5.5) 04/13/21 13:10 Globulin 2.6 g/dL (2.1-4.2) 04/13/21 13:10 Albumin/Globulin Ratio 1.5 (1.0-2.2) 04/13/21 13:10 Urine Color BROWN 04/15/21 11:50 Urine Clarity CLOUDY (CLEAR) 04/15/21 11:50 Urine pH 6.0 PH (5.0-7.5) 04/15/21 11:50 Ur Specific [place] 1.025 (1.002-1.030) 04/15/21 11:50 Urine Protein 100 mg/dL (NEGATIVE) H 04/15/21 11:50 Urine Glucose (UA) NEGATIVE mg/dL (NEGATIVE) 04/15/21 11:50 Urine Ketones >=80 mg/dL (NEGATIVE) H 04/15/21 11:50 Urine Occult Blood LARGE (NEGATIVE) H 04/15/21 11:50 Urine Nitrite POSITIVE (NEGATIVE) H 04/15/21 11:50 Urine Bilirubin NEGATIVE (NEGATIVE) 04/15/21 11:50 Urine Urobilinogen 1 (NORMAL) E.U./dL (NORMAL) 04/15/21 11:50 Ur Leukocyte Esterase TRACE (NEGATIVE) H 04/15/21 11:50 Urine RBC TNTC /HPF (0-5) H 04/15/21 11:50 Urine WBC 0-3 /HPF (0-3) 04/15/21 11:50 Ur Squamous Epith Cells RARE Squamous (<= Few) 04/15/21 11:50 Amorphous Sediment Few /LPF 04/15/21 11:50 Urine Bacteria Few /HPF (None Seen) 04/15/21 11:50 Urine Culture Comments INDICATED 04/15/21 11:50 Nasal Adenovirus (PCR) NOT DETECTED 04/13/21 16:48 Nasal B. parapertussis DNA (PCR) NOT DETECTED 04/13/21 16:48 Nasal Coronavir 229E PCR NOT DETECTED 04/13/21 16:48 Nasal Coronavir HKU1 PCR NOT DETECTED 04/13/21 16:48 Nasal Coronavir NL63 PCR NOT DETECTED 04/13/21 16:48 Nasal Coronavir OC43 PCR NOT DETECTED 04/13/21 16:48 Nasal Enterovir/Rhinovir PCR NOT DETECTED 04/13/21 16:48 Nasal Influenza B PCR NOT DETECTED 04/13/21 16:48 Nasal Influenza A PCR NOT DETECTED 04/13/21 16:48 Nasal Parainfluen 1 PCR NOT DETECTED 04/13/21 16:48 Nasal Parainfluen 2 PCR NOT DETECTED 04/13/21 16:48 Nasal Parainfluen 3 PCR NOT DETECTED 04/13/21 16:48 Nasal Parainfluen 4 PCR NOT DETECTED 04/13/21 16:48 Nasal RSV (PCR) NOT DETECTED 04/13/21 16:48 Nasal B.pertussis DNA PCR NOT DETECTED 04/13/21 16:48 Nasal C.pneumoniae (PCR) NOT DETECTED 04/13/21 16:48 Mian Human Metapneumo PCR NOT DETECTED 04/13/21 16:48 Nasal M.pneumoniae (PCR) NOT DETECTED 04/13/21 16:48 Nasal SARS-CoV-2 (PCR) NOT DETECTED 04/13/21 16:48 Ethyl Alcohol < 5.0 mg/dL 04/13/21 13:10
[2021-04-18] MEDS: MULTIVITAMIN W/MINERALS TABLET PO SCH ×2 (12:50→13:04)
[2021-04-18] MEDS: levETIRAcetam INJ 750 MG in SODIUM CHLORIDE 0.9% 100ML 100 ML IV PRN ×2 (15:45→22:04)
[2021-04-18] MEDS: SODIUM CHLORIDE FLUSH 0.9% 10 ML SYRINGE IVP PRN ×2 (17:10→18:54)
[2021-04-18] MEDS: QUEtiapine 25 MG TABLET PO SCH (22:02)
[2021-04-19] MEDS: SODIUM CHLORIDE FLUSH 0.9% 10 ML SYRINGE IVP SCH ×4 (00:32→22:57)
[2021-04-19 07:32] LABS: CALCIUM 8.6 mg/dL (8.5-10.3); CREATININE 0.9 mg/dL (0.6-1.2); POTASSIUM 3.1 mmol/L (3.5-5.0)
[2021-04-19 07:38] LABS: BASOPHILS % (AUTO) 0.8 %; EOSINOPHILS # (AUTO) 0.2 10^3/uL (0.0-0.7); EOSINOPHILS % (AUTO) 3.2 %; LYMPHOCYTES # (AUTO) 1.1 10^3/uL (1.5-3.5); LYMPHOCYTES % (AUTO) 21.4 %; MEAN CORPUSCULAR HEMOGLOBIN 30.5 pg (27.0-31.0); MEAN CORPUSCULAR HGB CONC 33.3 g/dL (32.0-36.0); MEAN CORPUSCULAR VOLUME 91.4 fL (80.0-94.0); MEAN PLATELET VOLUME 9.5 fL (7.4-11.4); MONOCYTES # (AUTO) 0.5 10^3/uL (0.0-1.0); MONOCYTES % (AUTO) 9.4 %; NEUTROPHILS # (AUTO) 3.5 10^3/uL (1.5-6.6); PLT - PLATELET COUNT 230 10^3/uL (130-450); RED BLOOD COUNT 3.61 10^6/uL (4.70-6.10); RED CELL DISTRIBUTION WIDTH 12.6 % (12.0-15.0); WHITE BLOOD COUNT 5.3 x10^3/uL (4.8-10.8)
[2021-04-19] MEDS: MULTIVITAMIN W/MINERALS TABLET PO SCH (08:23)
[2021-04-19] MEDS: ASPIRIN EC 81 MG TABLET PO SCH (08:24)
[2021-04-19] MEDS: DOCUSATE SODIUM 250 MG CAPSULE PO SCH (08:24)
[2021-04-19] MEDS: FINASTERIDE 5 MG TABLET PO SCH ×3 (08:25→23:42)
[2021-04-19] MEDS: SENNA 8.6 MG TABLET PO SCH (08:26)
[2021-04-19] MEDS: TAMSULOSIN 0.4 MG CAPSULE PO SCH (08:26)
[2021-04-19] MEDS: levETIRAcetam 500 MG/5 ML UDC PO SCH (08:28)
[2021-04-19] MEDS: polyethylene glycoL 3350 17 GM PACKET PO SCH (08:29)
[2021-04-19] MEDS: levETIRAcetam 250 MG TABLET PO SCH ×2 (08:38→22:55)
[2021-04-19] MEDS ORDERED: POTASSIUM CHLORIDE 20 MEQ TABLET PO ONE (11:07)
[2021-04-19] MEDS: SODIUM CHLORIDE FLUSH 0.9% 10 ML SYRINGE IVP PRN (11:39)
[2021-04-19] MEDS: carvediloL 3.125 MG TABLET PO SCH ×3 (11:39→23:41)
[2021-04-19] MEDS: ONDANSETRON 4 MG/2 ML VIAL IVP PRN ×2 (11:39→18:02)
[2021-04-19] MEDS: LORazepam 2 MG/ML VIAL IVP PRN ×2 (11:44→17:01)
--- NOTE | 2021-04-19 13:44 | PROVIDER PROGRESS NOTE ---
Subjective - Prog Note Date Prog Note Date: 04/19/21 - Subjective Subjective: He complains of bladder discomfort secondary to the catheter. He wants to use a smaller catheter to catheterize himself as needed. Current Medications - Current Medications Current Medications: Active Medications Acetaminophen (Acetaminophen 500 Mg Tablet) 1,000 mg PO Q6H PRN PRN Reason: Pain or Fever > 38C (100.4F) Last Admin: 04/18/21 10:19 Dose: 1,000 mg Documented by: Aspirin (Aspirin Ec 81 Mg Tablet) 81 mg PO DAILY [facility] [place] Last Admin: 04/19/21 08:24 Dose: 81 mg Documented by: Carvedilol (Carvedilol 3.125 Mg Tablet) 3.125 mg PO BID [facility] [place] Last Admin: 04/19/21 11:39 Dose: 3.125 mg Documented by: Docusate Sodium (Docusate Sodium 250 Mg Capsule) 250 - 500 mg PO DAILY [facility] [place] Last Admin: 04/19/21 08:24 Dose: 250 mg Documented by: Finasteride (Finasteride 5 Mg Tablet) 5 mg PO BID [facility] [place] Last Admin: 04/19/21 08:25 Dose: 5 mg Documented by: Levetiracetam (Levetiracetam 250 Mg Tablet) 750 mg PO BID [facility] [place] Last Admin: 04/19/21 08:38 Dose: Not Given Documented by: Lorazepam (Lorazepam 2 Mg/Ml Vial) 1 mg IVP Q2H PRN PRN Reason: Agitation Last Admin: 04/19/21 11:44 Dose: 1 mg Documented by: Multivitamins/Minerals (Multivitamin W/Minerals Tablet) 1 tab PO DAILYWM [facility] [place] Last Admin: 04/19/21 08:23 Dose: 1 tab Documented by: Ondansetron HCl (Ondansetron 4 Mg/2 Ml Vial) 4 mg IVP Q6HR PRN PRN Reason: Nausea / Vomiting Last Admin: 04/19/21 11:39 Dose: 4 mg Documented by: Polyethylene Glycol (Polyethylene Glycol 3350 17 Gm Packet) 17 gm PO DAILY [facility] [place] Last Admin: 04/19/21 08:29 Dose: 17 gm Documented by: Quetiapine Fumarate (Quetiapine 25 Mg Tablet) 25 mg PO QPM [facility] [place] Last Admin: 04/18/21 22:02 Dose: Not Given Documented by: Senna (Senna 8.6 Mg Tablet) 8.6 - 17.2 mg PO DAILY [facility] [place] Last Admin: 04/19/21 08:26 Dose: 8.6 mg Documented by: Sodium Chloride (Sodium Chloride Flush 0.9% 10 Ml Syringe) 10 ml IVP PRN PRN PRN Reason: NEEDED PER PROVIDER ORDERS Last Admin: 04/19/21 11:39 Dose: 10 ml Documented by: Sodium Chloride (Sodium Chloride Flush 0.9% 10 Ml Syringe) 10 ml IVP 0100,0900,1700 [facility] [place] Last Admin: 04/19/21 08:39 Dose: 10 ml Documented by: Tamsulosin HCl (Tamsulosin 0.4 Mg Capsule) 0.4 mg PO DAILY [facility] [place] Last Admin: 04/19/21 08:26 Dose: 0.4 mg Documented by: Apixaban [Eliquis] 1 tab PO DAILY 04/13/21 Finasteride [Proscar] 5 mg PO DAILY 04/13/21 Lisinopril [Zestril] 20 mg PO DAILY 04/13/21 Tamsulosin [Flomax] 0.4 mg PO DAILY 04/13/21 Objective - Vital Signs/Intake & Output Reviewed Vital Signs: Yes Vital Signs: Vital Signs x48h Temp Pulse Resp BP BP Pulse Ox 04/19/21 11:45 36.6 C 94 20 155/75 H 98 04/19/21 07:57 36.3 C L 82 19 124/95 H 99 04/19/21 06:52 36.4 C L 91 18 149/84 H 96 Intake & Output: Intake & Output 04/16/21 04/17/21 04/18/21 04/19/21 23:59 23:59 23:59 23:59 Intake Total 970 1360 1015.0 170 Output Total 500 750 705 505 Balance 470 610 310.0 -335 - Objective General Appearance: positive: Alert, Mild distress ENT: positive: ENT inspection nml Neck: positive: Nml inspection Respiratory: positive: No respiratory distress. negative: Wheezes, Rales Cardiovascular: positive: No murmur. negative: Tachycardia, Systolic murmur Abdomen: positive: Non-tender, No distention. negative: Tenderness Skin: positive: Warm, Dry Extremities: positive: No pedal edema Neurologic/Psychiatric: positive: Other (He is able to move all 4 extremities. Strength does appear slightly decreased at about 4 out of 5 in the left upper and lower extremities.). negative: Disoriented to person, Disoriented to place - Lab Results Fish Bones: 04/19/21 07:16 04/19/21 07:16 Other Labs: Lab Results x24hrs 04/19/21 04/19/21 Range/Units 07:16 07:16 WBC 5.3 (4.8-10.8) x10^3/uL RBC 3.61 L (4.70-6.10) 10^6/uL Hgb 11.0 L (14.0-18.0) g/dL Hct 33.0 L (42.0-52.0) % MCV 91.4 (80.0-94.0) fL MCH 30.5 (27.0-31.0) pg MCHC 33.3 (32.0-36.0) g/dL RDW 12.6 (12.0-15.0) % Plt Count 230 (130-450) 10^3/uL MPV 9.5 (7.4-11.4) fL Neut # (Auto) 3.5 (1.5-6.6) 10^3/uL Lymph # (Auto) 1.1 L (1.5-3.5) 10^3/uL [place] # (Auto) 0.5 (0.0-1.0) 10^3/uL Eos # (Auto) 0.2 (0.0-0.7) 10^3/uL Baso # (Auto) 0.0 (0.0-0.1) 10^3/uL Absolute Nucleated RBC 0.00 x10^3/uL Nucleated RBC % 0.0 /100WBC Sodium 139 (135-145) mmol/L Potassium 3.1 L (3.5-5.0) mmol/L Chloride 106 (101-111) mmol/L Carbon Dioxide 24 (21-32) mmol/L Anion Gap 9.0 (6-13) BUN 22 H (6-20) mg/dL Creatinine 0.9 (0.6-1.2) mg/dL Estimated GFR (MDRD) 81 L (>89) Glucose 99 (70-100) mg/dL Calcium 8.6 (8.5-10.3) mg/dL Assessment/Plan - Problem List (1) Seizure as late effect of cerebrovascular accident (CVA) Impression: He has a known history of seizures after his old CVA. He is on Keppra and this dose was increased given his most recent seizure leading to this hospitalization. The concern is for Napoleon's paralysis given his seizure and left-sided weakness. At this time he is not had any further episodes of seizure and his left-sided weakness has nearly resolved. We will continue his current dose of Keppra and have him follow-up with neurology on an outpatient basis. (2) Left-sided muscle weakness Impression: There was concern his left-sided weakness was secondary to an infarct. Initial MRI was concerning for resolving ischemia or artifact. Repeat MRI on the third showed very subtle restricted diffusion in the cortical and berman-white junction involving the temporal, occipital, posterior, and frontal lobes. Differential included Avughn-Creutzfeldt disease or autoimmune encephalitis. It also showed evidence of the old focal right occipital infarct. Given it does not appear he had an acute infarct, I do wonder if his weakness may have been Napoleon's paralysis related to the seizure. At this point time, his weakness appears to have nearly resolved. (3) Post-ictal confusion Impression: This appears to have resolved. It was felt this may related to his seizure or potentially the Ativan he had received. We will continue to monitor his neuro status at this time and avoid further sedatives. (4) Afib Impression: He has known history of atrial relation he is on carvedilol and Eliquis. Eliquis was held given concern for acute infarct. Given this not appear to be a stroke, we will resume Eliquis. Continue Carvedilol. (5) Cardiomyopathy Impression: He has a history of heart failure with reduced ejection fraction but now his EF is preserved. We will continue carvedilol and lisinopril. (6) BPH (benign prostatic hyperplasia) Impression: He is complaining of bladder pain radiating to his penis and he believes it is due to the catheter. He would like it removed and to use a smaller catheter if necessary. We will remove the cath and continue the finasteride and Flomax. If he requires to be catheterized again we will use a coud.
[2021-04-19] MEDS: ACETAMINOPHEN 500 MG TABLET PO PRN (17:11)
[2021-04-19] MEDS: ATORVASTATIN 40 MG TABLET PO SCH (22:56)
[2021-04-19] MEDS: QUEtiapine 25 MG TABLET PO SCH (22:57)
[2021-04-19] MEDS ORDERED: levETIRAcetam INJ 500 MG in SODIUM CHLORIDE 0.9% 100ML 100 ML IV STA (23:26)
[2021-04-20] MEDS: ATORVASTATIN 40 MG TABLET PO SCH ×2 (01:23→19:45)
[2021-04-20] MEDS: QUEtiapine 25 MG TABLET PO SCH ×2 (01:27→19:45)
[2021-04-20] MEDS: SODIUM CHLORIDE FLUSH 0.9% 10 ML SYRINGE IVP SCH ×2 (09:02→17:21)
[2021-04-20] MEDS: carvediloL 3.125 MG TABLET PO SCH ×2 (09:07→19:45)
[2021-04-20] MEDS: levETIRAcetam 250 MG TABLET PO SCH ×2 (09:07→19:45)
[2021-04-20] MEDS: lisinopriL 20 MG TABLET PO SCH (09:07)
[2021-04-20] MEDS: ACETAMINOPHEN 500 MG TABLET PO PRN ×2 (09:07→19:44)
[2021-04-20] MEDS: ASPIRIN EC 81 MG TABLET PO SCH (09:07)
[2021-04-20] MEDS: TAMSULOSIN 0.4 MG CAPSULE PO SCH (09:10)
[2021-04-20] MEDS: MULTIVITAMIN W/MINERALS TABLET PO SCH (09:16)
[2021-04-20] MEDS: FINASTERIDE 5 MG TABLET PO SCH ×2 (09:27→19:45)
[2021-04-20] MEDS: polyethylene glycoL 3350 17 GM PACKET PO SCH (09:27)
[2021-04-20] MEDS: SENNA 8.6 MG TABLET PO SCH (09:30)
[2021-04-20] MEDS: DOCUSATE SODIUM 250 MG CAPSULE PO SCH (09:30)
[2021-04-20] MEDS: LORazepam 2 MG/ML VIAL IVP PRN ×2 (12:00→19:52)
--- NOTE | 2021-04-20 16:03 | PROVIDER PROGRESS NOTE ---
Subjective - Prog Note Date Prog Note Date: 04/20/21 - Subjective Subjective: He feels better. He knows to the hospital. Denies any pain. Current Medications - Current Medications Current Medications: Active Medications Acetaminophen (Acetaminophen 500 Mg Tablet) 1,000 mg PO Q6H PRN PRN Reason: Pain or Fever > 38C (100.4F) Last Admin: 04/20/21 09:07 Dose: 1,000 mg Documented by: Aspirin (Aspirin Ec 81 Mg Tablet) 81 mg PO DAILY [facility] Last Admin: 04/20/21 09:07 Dose: 81 mg Documented by: Atorvastatin Calcium (Atorvastatin 40 Mg Tablet) 40 mg PO QPM [facility] Last Admin: 04/20/21 01:23 Dose: Not Given Documented by: Carvedilol (Carvedilol 3.125 Mg Tablet) 3.125 mg PO BID [facility] Last Admin: 04/20/21 09:07 Dose: 3.125 mg Documented by: Docusate Sodium (Docusate Sodium 250 Mg Capsule) 250 - 500 mg PO DAILY [facility] Last Admin: 04/20/21 09:30 Dose: 250 mg Documented by: Finasteride (Finasteride 5 Mg Tablet) 5 mg PO BID [facility] Last Admin: 04/20/21 09:27 Dose: 5 mg Documented by: Levetiracetam (Levetiracetam 250 Mg Tablet) 750 mg PO BID [facility] Last Admin: 04/20/21 09:07 Dose: 750 mg Documented by: Lisinopril (Lisinopril 20 Mg Tablet) 20 mg PO DAILY [facility] Last Admin: 04/20/21 09:07 Dose: 20 mg Documented by: Lorazepam (Lorazepam 2 Mg/Ml Vial) 1 mg IVP Q2H PRN PRN Reason: Agitation Last Admin: 04/20/21 12:00 Dose: 1 mg Documented by: Multivitamins/Minerals (Multivitamin W/Minerals Tablet) 1 tab PO DAILYWM [facility] Last Admin: 04/20/21 09:16 Dose: 1 tab Documented by: Ondansetron HCl (Ondansetron 4 Mg/2 Ml Vial) 4 mg IVP Q6HR PRN PRN Reason: Nausea / Vomiting Last Admin: 04/19/21 18:02 Dose: 4 mg Documented by: Polyethylene Glycol (Polyethylene Glycol 3350 17 Gm Packet) 17 gm PO DAILY [facility] Last Admin: 04/20/21 09:27 Dose: 17 gm Documented by: Quetiapine Fumarate (Quetiapine 25 Mg Tablet) 25 mg PO QPM [facility] Last Admin: 04/20/21 01:27 Dose: Not Given Documented by: Senna (Senna 8.6 Mg Tablet) 8.6 - 17.2 mg PO DAILY [facility] Last Admin: 04/20/21 09:30 Dose: 8.6 mg Documented by: Sodium Chloride (Sodium Chloride Flush 0.9% 10 Ml Syringe) 10 ml IVP PRN PRN PRN Reason: NEEDED PER PROVIDER ORDERS Last Admin: 04/19/21 11:39 Dose: 10 ml Documented by: Sodium Chloride (Sodium Chloride Flush 0.9% 10 Ml Syringe) 10 ml IVP 0 100,0900,1700 [facility] Last Admin: 04/20/21 09:02 Dose: Not Given Documented by: Tamsulosin HCl (Tamsulosin 0.4 Mg Capsule) 0.4 mg PO DAILY [facility] Last Admin: 04/20/21 09:10 Dose: 0.4 mg Documented by: Apixaban [Eliquis] 1 tab PO DAILY 04/13/21 Finasteride [Proscar] 5 mg PO DAILY 04/13/21 Lisinopril [Zestril] 20 mg PO DAILY 04/13/21 Tamsulosin [Flomax] 0.4 mg PO DAILY 04/13/21 Objective - Vital Signs/Intake & Output Reviewed Vital Signs: Yes Vital Signs: Vital Signs x48h Temp Pulse Resp BP Pulse Ox 04/20/21 07:54 36.7 C 82 16 141/66 H 97 Intake & Output: Intake & Output 04/17/21 04/18/21 04/19/21 04/20/21 23:59 23:59 23:59 23:59 Intake Total 1360 1015.0 390 565 Output Total 750 705 555 745 Balance 610 310.0 -165 -180 - Objective General Appearance: positive: No acute distress, Alert, Mild distress Eyes Bilateral: positive: Conjunctivae nml ENT: positive: ENT inspection nml Neck: positive: Nml inspection Respiratory: positive: No respiratory distress. negative: Wheezes, Rales Cardiovascular: positive: Regular rate & rhythm. negative: Tachycardia Abdomen: positive: Non-tender, No distention. negative: Tenderness Skin: positive: Warm, Dry Extremities: positive: No pedal edema Neurologic/Psychiatric: positive: Other (He has 5/5 motor strength in his right upper and lower extremity. Motor strength about 4/5 in the left upper and lower extremity. He does lack fine motor movement of the left upper extremity). negative: Disoriented to person, Disoriented to place - Lab Results Fish Bones: 04/19/21 07:16 04/19/21 07:16 Assessment/Plan - Problem List (1) Seizure as late effect of cerebrovascular accident (CVA) Impression: He has a known history of seizures after his old CVA. He is on Keppra and this dose was increased given his most recent seizure leading to this hospitalization. The concern is for Napoleon's paralysis given his seizure and left-sided weakness. At this time he is not had any further episodes of seizure and his left-sided weakness has nearly resolved. We will continue his current dose of Keppra and have him follow-up with neurology on an outpatient basis. (2) Left-sided muscle weakness Impression: There was concern his left-sided weakness was secondary to an infarct. Initial MRI was concerning for resolving ischemia or artifact. Repeat MRI on the third showed very subtle restricted diffusion in the cortical and berman-white junction involving the temporal, occipital, posterior, and frontal lobes. Differential included Vaughn-Creutzfeldt disease or autoimmune encephalitis. It also showed evidence of the old focal right occipital infarct. Given it does not appear he had an acute infarct, I do wonder if his weakness may have been Napoleon's paralysis related to the seizure. He has continued to show improvement on a daily basis and only has a minimal deficit now. (3) Post-ictal confusion Impression: This appears to have resolved. It was felt this may related to his seizure or potentially the Ativan he had received. We will continue to monitor his neuro status at this time and avoid further sedatives. (4) Afib Impression: He has known history of atrial relation he is on carvedilol and Eliquis. Eliquis was held given concern for acute infarct. Given this not appear to be a stroke, we will resume Eliquis. Continue Carvedilol. (5) Cardiomyopathy Impression: He has a history of heart failure with reduced ejection fraction but now his EF is preserved. We will continue carvedilol and lisinopril. (6) BPH (benign prostatic hyperplasia) Impression: Continue finasteride and Flomax. Continue with straight cath as needed.
[2021-04-20] MEDS: APIXABAN 5 MG TABLET PO SCH (20:46)
[2021-04-21] MEDS: SODIUM CHLORIDE FLUSH 0.9% 10 ML SYRINGE IVP SCH ×3 (01:52→19:41)
[2021-04-21 04:31] LABS: BASOPHILS # (AUTO) 0.1 10^3/uL (0.0-0.1); BASOPHILS % (AUTO) 1.1 %; EOSINOPHILS # (AUTO) 0.2 10^3/uL (0.0-0.7); EOSINOPHILS % (AUTO) 2.8 %; LYMPHOCYTES # (AUTO) 1.7 10^3/uL (1.5-3.5); LYMPHOCYTES % (AUTO) 27.2 %; MEAN CORPUSCULAR HEMOGLOBIN 29.8 pg (27.0-31.0); MEAN CORPUSCULAR HGB CONC 32.4 g/dL (32.0-36.0); MEAN CORPUSCULAR VOLUME 92.1 fL (80.0-94.0); MEAN PLATELET VOLUME 9.2 fL (7.4-11.4); MONOCYTES # (AUTO) 0.4 10^3/uL (0.0-1.0); MONOCYTES % (AUTO) 7.2 %; NEUTROPHILS # (AUTO) 3.8 10^3/uL (1.5-6.6); NEUTROPHILS % (AUTO) 61.4 %; PLT - PLATELET COUNT 296 10^3/uL (130-450); RED BLOOD COUNT 3.69 10^6/uL (4.70-6.10); RED CELL DISTRIBUTION WIDTH 12.9 % (12.0-15.0); WHITE BLOOD COUNT 6.1 x10^3/uL (4.8-10.8)
[2021-04-21 04:37] LABS: CALCIUM 8.9 mg/dL (8.5-10.3); CREATININE 1.1 mg/dL (0.6-1.2); POTASSIUM 3.5 mmol/L (3.5-5.0)
[2021-04-21] MEDS: polyethylene glycoL 3350 17 GM PACKET PO SCH (08:11)
[2021-04-21] MEDS: levETIRAcetam 250 MG TABLET PO SCH ×2 (08:16→19:38)
[2021-04-21] MEDS: carvediloL 3.125 MG TABLET PO SCH ×2 (08:17→20:49)
[2021-04-21] MEDS: MULTIVITAMIN W/MINERALS TABLET PO SCH (08:17)
[2021-04-21] MEDS: TAMSULOSIN 0.4 MG CAPSULE PO SCH (08:17)
[2021-04-21] MEDS: APIXABAN 5 MG TABLET PO SCH ×2 (08:17→20:49)
[2021-04-21] MEDS: FINASTERIDE 5 MG TABLET PO SCH ×2 (08:17→20:49)
[2021-04-21] MEDS: lisinopriL 20 MG TABLET PO SCH (08:17)
[2021-04-21] MEDS: DOCUSATE SODIUM 250 MG CAPSULE PO SCH (08:20)
[2021-04-21] MEDS: SENNA 8.6 MG TABLET PO SCH (08:20)
--- NOTE | 2021-04-21 09:26 | PROVIDER PROGRESS NOTE ---
Subjective - Prog Note Date Prog Note Date: 04/21/21 - Subjective Subjective: He reports doing well. He states that he is hungry. Current Medications - Current Medications Current Medications: Active Medications Acetaminophen (Acetaminophen 500 Mg Tablet) 1,000 mg PO Q6H PRN PRN Reason: Pain or Fever > 38C (100.4F) Last Admin: 04/20/21 19:44 Dose: 1,000 mg Documented by: Apixaban (Apixaban 5 Mg Tablet) 5 mg PO BID [facility] Last Admin: 04/21/21 08:17 Dose: 5 mg Documented by: Atorvastatin Calcium (Atorvastatin 40 Mg Tablet) 40 mg PO QPM [facility] Last Admin: 04/20/21 19:45 Dose: 40 mg Documented by: Carvedilol (Carvedilol 3.125 Mg Tablet) 3.125 mg PO BID [facility] Last Admin: 04/21/21 08:17 Dose: 3.125 mg Documented by: Docusate Sodium (Docusate Sodium 250 Mg Capsule) 250 - 500 mg PO DAILY [facility] Last Admin: 04/21/21 08:20 Dose: Not Given Documented by: Finasteride (Finasteride 5 Mg Tablet) 5 mg PO BID [facility] Last Admin: 04/21/21 08:17 Dose: 5 mg Documented by: Levetiracetam (Levetiracetam 250 Mg Tablet) 750 mg PO BID [facility] Last Admin: 04/21/21 08:16 Dose: 750 mg Documented by: Lisinopril (Lisinopril 20 Mg Tablet) 20 mg PO DAILY [facility] Last Admin: 04/21/21 08:17 Dose: 20 mg Documented by: Lorazepam (Lorazepam 2 Mg/Ml Vial) 1 mg IVP Q2H PRN PRN Reason: Agitation Last Admin: 04/20/21 19:52 Dose: 1 mg Documented by: Multivitamins/Minerals (Multivitamin W/Minerals Tablet) 1 tab PO DAILYWM [facility] Last Admin: 04/21/21 08:17 Dose: 1 tab Documented by: Ondansetron HCl (Ondansetron 4 Mg/2 Ml Vial) 4 mg IVP Q6HR PRN PRN Reason: Nausea / Vomiting Last Admin: 04/19/21 18:02 Dose: 4 mg Documented by: Polyethylene Glycol (Polyethylene Glycol 3350 17 Gm Packet) 17 gm PO DAILY [facility] Last Admin: 04/21/21 08:11 Dose: 17 gm Documented by: Quetiapine Fumarate (Quetiapine 25 Mg Tablet) 25 mg PO QPM [facility] Last Admin: 04/20/21 19:45 Dose: 25 mg Documented by: Senna (Senna 8.6 Mg Tablet) 8.6 - 17.2 mg PO DAILY [facility] Last Admin: 04/21/21 08:20 Dose: Not Given Documented by: Sodium Chloride (Sodium Chloride Flush 0.9% 10 Ml Syringe) 10 ml IVP PRN PRN PRN Reason: NEEDED PER PROVIDER ORDERS Last Admin: 04/19/21 11:39 Dose: 10 ml Documented by: Sodium Chloride (Sodium Chloride Flush 0.9% 10 Ml Syringe) 10 ml IVP 0100,0900,1700 [facility] Last Admin: 04/21/21 08:20 Dose: 10 ml Documented by: Tamsulosin HCl (Tamsulosin 0.4 Mg Capsule) 0.4 mg PO DAILY [facility] Last Admin: 04/21/21 08:17 Dose: 0.4 mg Documented by: Apixaban [Eliquis] 1 tab PO DAILY 04/13/21 Finasteride [Proscar] 5 mg PO DAILY 04/13/21 Lisinopril [Zestril] 20 mg PO DAILY 04/13/21 Tamsulosin [Flomax] 0.4 mg PO DAILY 04/13/21 Objective - Vital Signs/Intake & Output Reviewed Vital Signs: Yes Vital Signs: Vital Signs x48h Temp Pulse Resp BP Pulse Ox 04/21/21 07:27 36.6 C 79 16 131/72 H 98 04/21/21 06:00 83 18 112/67 97 Intake & Output: Intake & Output 04/18/21 04/19/21 04/20/21 04/21/21 23:59 23:59 23:59 22:59 Intake Total 1015.0 390 685 120 Output Total 705 555 970 200 Balance 310.0 -165 -285 -80 - Objective General Appearance: positive: No acute distress, Alert Eyes Bilateral: positive: Normal inspection ENT: positive: ENT inspection nml Neck: positive: Nml inspection Respiratory: positive: No respiratory distress. negative: Wheezes, Rales Cardiovascular: positive: Regular rate & rhythm. negative: Tachycardia Abdomen: positive: Non-tender, No distention. negative: Tenderness Skin: positive: Warm, Dry Extremities: positive: No pedal edema Neurologic/Psychiatric: positive: Other (His left upper extremity still appears to have slightly less strength compared to the right upper extremity. It is about a 4 out of 5. This is improved though.). negative: Disoriented to person, Disoriented to place - Lab Results Fish Bones: 04/21/21 04:14 04/21/21 04:14 Other Labs: Lab Results x24hrs 04/21/21 04/21/21 Range/Units 04:14 04:14 WBC 6.1 (4.8-10.8) x10^3/uL RBC 3.69 L (4.70-6.10) 10^6/uL Hgb 11.0 L (14.0-18.0) g/dL Hct 34.0 L (42.0-52.0) % MCV 92.1 (80.0-94.0) fL MCH 29.8 (27.0-31.0) pg MCHC 32.4 (32.0-36.0) g/dL RDW 12.9 (12.0-15.0) % Plt Count 296 (130-450) 10^3/uL MPV 9.2 (7.4-11.4) fL Neut # (Auto) 3.8 (1.5-6.6) 10^3/uL Lymph # (Auto) 1.7 (1.5-3.5) 10^3/uL [place] # (Auto) 0.4 (0.0-1.0) 10^3/uL Eos # (Auto) 0.2 (0.0-0.7) 10^3/uL Baso # (Auto) 0.1 (0.0-0.1) 10^3/uL Absolute Nucleated RBC 0.00 x10^3/uL Nucleated RBC % 0.0 /100WBC Sodium 140 (135-145) mmol/L Potassium 3.5 (3.5-5.0) mmol/L Chloride 106 (101-111) mmol/L Carbon Dioxide 24 (21-32) mmol/L Anion Gap 10.0 (6-13) BUN 22 H (6-20) mg/dL Creatinine 1.1 (0.6-1.2) mg/dL Estimated GFR (MDRD) 64 L (>89) Glucose 101 H (70-100) mg/dL Calcium 8.9 (8.5-10.3) mg/dL Assessment/Plan - Problem List (1) Seizure as late effect of cerebrovascular accident (CVA) Impression: He has a known history of seizures after his old CVA. He is on Keppra and this dose was increased given his most recent seizure leading to this hospitalization. The concern is for Napoleon's paralysis given his seizure and left-sided weakness. At this time he is not had any further episodes of seizure and his left-sided weakness has continues to improve. We will continue his current dose of Keppra and have him follow-up with neurology on an outpatient basis. (2) Left-sided muscle weakness Impression: There was concern his left-sided weakness was secondary to an infarct. Initial MRI was concerning for resolving ischemia or artifact. Repeat MRI on the third showed very subtle restricted diffusion in the cortical and berman-white junction involving the temporal, occipital, posterior, and frontal lobes. Differential included Vaughn-Creutzfeldt disease or autoimmune encephalitis. It also showed evidence of the old focal right occipital infarct. Given it does not appear he had an acute infarct, I do wonder if his weakness may have been Napoleon's paralysis related to the seizure especially given he has shown improvement each day. He was seen by physical therapy and SNF is recommended and now we are just awaiting placement. (3) Post-ictal confusion Impression: This is resolved. This is felt secondary to his seizure and the benzodiazepine he had received. He currently appears to be at his baseline and will hold further sedatives. (4) Afib Impression: He has known history of atrial relation he is on carvedilol and Eliquis. Eliquis was held given concern for acute infarct. Given this not appear to be a stroke, we will continue Eliquis. Continue Carvedilol. (5) Cardiomyopathy Impression: He has a history of heart failure with reduced ejection fraction but now his EF is preserved. We will continue carvedilol and lisinopril. (6) BPH (benign prostatic hyperplasia) Impression: Continue finasteride and Flomax. Continue with straight cath as needed.
[2021-04-21] MEDS: ACETAMINOPHEN 500 MG TABLET PO PRN ×2 (15:01→20:49)
[2021-04-21] MEDS: LORazepam 2 MG/ML VIAL IVP PRN (19:26)
[2021-04-21] MEDS: ATORVASTATIN 40 MG TABLET PO SCH (20:49)
[2021-04-22] MEDS: SODIUM CHLORIDE FLUSH 0.9% 10 ML SYRINGE IVP SCH ×3 (02:52→19:13)
[2021-04-22] MEDS: LORazepam 2 MG/ML VIAL IVP PRN ×2 (03:57→19:12)
[2021-04-22 05:03] LABS: BASOPHILS % (AUTO) 0.4 %; EOSINOPHILS % (AUTO) 0.1 %; HCT - HEMATOCRIT 36.1 % (42.0-52.0); HGB - HEMOGLOBIN 11.7 g/dL (14.0-18.0); LYMPHOCYTES % (AUTO) 1.1 %; MEAN CORPUSCULAR HEMOGLOBIN 29.9 pg (27.0-31.0); MEAN CORPUSCULAR HGB CONC 32.4 g/dL (32.0-36.0); MEAN CORPUSCULAR VOLUME 92.3 fL (80.0-94.0); MEAN PLATELET VOLUME 9.5 fL (7.4-11.4); MONOCYTES % (AUTO) 1.1 %; NEUTROPHILS % (AUTO) 96.3 %; PLT - PLATELET COUNT 285 10^3/uL (130-450); RED BLOOD COUNT 3.91 10^6/uL (4.70-6.10); RED CELL DISTRIBUTION WIDTH 13.1 % (12.0-15.0); WHITE BLOOD COUNT 25.6 x10^3/uL (4.8-10.8)
[2021-04-22 05:08] LABS: ABNORMAL LYMPHS % (MANUAL) 0 %; CALCIUM 8.9 mg/dL (8.5-10.3); CREATININE 1.4 mg/dL (0.6-1.2); POTASSIUM 3.3 mmol/L (3.5-5.0)
[2021-04-22 05:25] LABS: BAND NEUTROPHILS % (MANUAL) 4 %; DIFFERENTIAL COMMENT MANUAL DIFFERENTIAL; EOSINOPHILS # (MANUAL) 0.3 10^3/uL (0-0.7); LYMPHOCYTES # (MANUAL) 0.3 10^3/uL (1.5-3.5); LYMPHOCYTES % (MANUAL) 1 %; MONOCYTES # (MANUAL) 0.3 10^3/uL (0.0-1.0); NEUTROPHILS # (MANUAL) 24.8 10^3/uL (1.5-6.6); PLATELET ESTIMATE, MANUAL NORMAL (130-450,000) (NORMAL); PLATELET MORPHOLOGY NORMAL APPEARANCE (NORMAL); RBC MORPHOLOGY (MULTIPLE) NORMAL APPEARANCE (NORMAL); WBC MORPHOLOGY (MULTIPLE) NORMAL APPEARANCE (NORMAL)
[2021-04-22] MEDS: FINASTERIDE 5 MG TABLET PO SCH ×2 (09:21→20:28)
[2021-04-22] MEDS: polyethylene glycoL 3350 17 GM PACKET PO SCH (09:21)
[2021-04-22] MEDS: levETIRAcetam 250 MG TABLET PO SCH ×2 (09:21→20:27)
[2021-04-22] MEDS: APIXABAN 5 MG TABLET PO SCH (09:22)
[2021-04-22] MEDS: carvediloL 3.125 MG TABLET PO SCH ×2 (09:22→20:28)
[2021-04-22] MEDS: MULTIVITAMIN W/MINERALS TABLET PO SCH (09:22)
[2021-04-22] MEDS: SENNA 8.6 MG TABLET PO SCH (09:22)
[2021-04-22] MEDS: TAMSULOSIN 0.4 MG CAPSULE PO SCH (09:23)
[2021-04-22] MEDS: lisinopriL 20 MG TABLET PO SCH (09:23)
[2021-04-22] MEDS: DOCUSATE SODIUM 250 MG CAPSULE PO SCH (09:23)
[2021-04-22 10:33] LABS: BASOPHILS % (AUTO) 0.4 %; HCT - HEMATOCRIT 35.3 % (42.0-52.0); HGB - HEMOGLOBIN 11.7 g/dL (14.0-18.0); MEAN CORPUSCULAR HEMOGLOBIN 30.6 pg (27.0-31.0); MEAN CORPUSCULAR HGB CONC 33.1 g/dL (32.0-36.0); MEAN CORPUSCULAR VOLUME 92.4 fL (80.0-94.0); MEAN PLATELET VOLUME 9.3 fL (7.4-11.4); MONOCYTES % (AUTO) 1.5 %; NEUTROPHILS % (AUTO) 95.2 %; PLT - PLATELET COUNT 320 10^3/uL (130-450); RED BLOOD COUNT 3.82 10^6/uL (4.70-6.10); RED CELL DISTRIBUTION WIDTH 13.2 % (12.0-15.0)
[2021-04-22 10:39] LABS: WHITE BLOOD COUNT 38.7 x10^3/uL (4.8-10.8)
[2021-04-22 10:41] LABS: ABNORMAL LYMPHS % (MANUAL) 0 %; LYMPHOCYTES % (MANUAL) 0 %
[2021-04-22 10:42] LABS: CREATININE 1.4 mg/dL (0.6-1.2)
[2021-04-22 10:54] LABS: BAND NEUTROPHILS % (MANUAL) 1 %; MONOCYTES # (MANUAL) 0.8 10^3/uL (0.0-1.0); NEUTROPHILS # (MANUAL) 37.9 10^3/uL (1.5-6.6); PLATELET ESTIMATE, MANUAL NORMAL (130-450,000) (NORMAL); PLATELET MORPHOLOGY NORMAL APPEARANCE (NORMAL); RBC MORPHOLOGY (MULTIPLE) NORMAL APPEARANCE (NORMAL)
[2021-04-22 10:55] LABS: DIFFERENTIAL COMMENT MANUAL DIFFERENTIAL
--- NOTE | 2021-04-22 11:14 | PROVIDER PROGRESS NOTE ---
Subjective - Prog Note Date Prog Note Date: 04/22/21 - Subjective Subjective: He has been hallucinating since yesterday evening. He states there are 2-3 dogs got into his room. He knows he is at the hospital but he is insistent that there are dogs present. He reports occasional bladder pain but denies any difficulty breathing or abdominal pain. Current Medications - Current Medications Current Medications: Active Medications Acetaminophen (Acetaminophen 500 Mg Tablet) 1,000 mg PO Q6H PRN PRN Reason: Pain or Fever > 38C (100.4F) Last Admin: 04/21/21 20:49 Dose: 1,000 mg Documented by: Atorvastatin Calcium (Atorvastatin 40 Mg Tablet) 40 mg PO QPM [facility] Last Admin: 04/21/21 20:49 Dose: 40 mg Documented by: Carvedilol (Carvedilol 3.125 Mg Tablet) 3.125 mg PO BID [facility] Last Admin: 04/22/21 09:22 Dose: 3.125 mg Documented by: Docusate Sodium (Docusate Sodium 250 Mg Capsule) 250 - 500 mg PO DAILY [facility] Last Admin: 04/22/21 09:23 Dose: 250 mg Documented by: Finasteride (Finasteride 5 Mg Tablet) 5 mg PO BID [facility] Last Admin: 04/22/21 09:21 Dose: 5 mg Documented by: Levetiracetam (Levetiracetam 250 Mg Tablet) 750 mg PO BID [facility] Last Admin: 04/22/21 09:21 Dose: 750 mg Documented by: Lisinopril (Lisinopril 20 Mg Tablet) 20 mg PO DAILY [facility] Last Admin: 04/22/21 09:23 Dose: 20 mg Documented by: Lorazepam (Lorazepam 2 Mg/Ml Vial) 1 mg IVP Q2H PRN PRN Reason: Agitation Last Admin: 04/22/21 03:57 Dose: 1 mg Documented by: Multivitamins/Minerals (Multivitamin W/[facility]inerals Table[facility]) [facility] Admin: 04/22/21 09:22 Dose: 1 tab Documented by: Ondansetron HCl (Ondansetron 4 Mg/2 Ml Vial) 4 mg IVP Q6HR PRN PRN Reason: Nausea / Vomiting Last Admin: 04/19/21 18:02 Dose: 4 mg Documented by: Polyethylene Glycol (Polyethylene Glycol 3350 17 Gm Packet) 17 gm PO DAILY [facility] Last Admin: 04/22/21 09:21 Dose: 17 gm Documented by: Senna (Senna 8.6 Mg Tablet) 8.6 - 17.2 mg PO DAILY [facility] Last Admin: 04/22/21 09:22 Dose: 8.6 mg Documented by: Sodium Chloride (Sodium Chloride Flush 0.9% 10 Ml Syringe) 10 ml IVP PRN PRN PRN Reason: NEEDED PER PROVIDER ORDERS Last Admin: 04/19/21 11:39 Dose: 10 ml Documented by: Sodium Chloride (Sodium Chloride Flush 0.9% 10 Ml Syringe) 10 ml IVP 0100,0900,1700 [facility] Last Admin: 04/22/21 09:24 Dose: 10 ml Documented by: Tamsulosin HCl (Tamsulosin 0.4 Mg Capsule) 0.4 mg PO DAILY [facility] Last Admin: 04/22/21 09:23 Dose: 0.4 mg Documented by: Apixaban [Eliquis] 1 tab PO DAILY 04/13/21 Finasteride [Proscar] 5 mg PO DAILY 04/13/21 Lisinopril [Zestril] 20 mg PO DAILY 04/13/21 Tamsulosin [Flomax] 0.4 mg PO DAILY 04/13/21 Objective - Vital Signs/Intake & Output Reviewed Vital Signs: Yes Vital Signs: Vital Signs x48h Temp Pulse Resp BP Pulse Ox 04/22/21 10:53 36.5 C 04/22/21 07:54 98 20 122/66 99 Intake & Output: Intake & Output 04/20/21 04/21/21 04/21/21 04/22/21 00:59 00:59 23:59 23:59 Intake Total 0 Output Total 100 Balance -100 - Objective General Appearance: positive: No acute distress, Alert Eyes Bilateral: positive: Normal inspection ENT: positive: ENT inspection nml Neck: positive: Nml inspection Respiratory: positive: No respiratory distress. negative: Wheezes, Rales Cardiovascular: positive: Regular rate & rhythm. negative: Irregularly irregular, Tachycardia, Systolic murmur Abdomen: positive: No distention, Tenderness (Mild tenderness in suprapubic region.). negative: Non-tender, Guarding, Rebound Skin: positive: Warm, Dry Extremities: positive: No pedal edema Neurologic/Psychiatric: positive: Disoriented to time, Other (Reports visualizing dogs in the room. He is moving all 4 extremities. He does have difficulty with fine motor movement of the left extremity. Appears to have some left-sided neglect.). negative: Disoriented to person, Disoriented to place - Lab Results Fish Bones: 04/22/21 10:26 04/22/21 10:26 Other Labs: Lab Results x24hrs 04/22/21 04/22/21 04/22/21 Range/Units 10: 10: 04:40 WBC 38.7 H* (4.8-10.8) x10^3/uL RBC 3.82 L (4.70-6.10) 10^6/uL Hgb 11.7 L (14.0-18.0) g/dL Hct 35.3 L (42.0-52.0) % MCV 92.4 (80.0-94.0) fL MCH 30.6 (27.0-31.0) pg MCHC 33.1 (32.0-36.0) g/dL RDW 13.2 (12.0-15.0) % Plt Count 320 (130-450) 10^3/uL MPV 9.3 (7.4-11.4) fL Neut # (Auto) Not Reportable Lymph # (Auto) Not Reportable [place] # (Auto) Not Reportable Eos # (Auto) Not Reportable Baso # (Auto) Not Reportable Absolute Nucleated RBC Not Reportable Total Counted 100 Band Neuts % (Manual) 1 (0 - 10) % Abnorm Lymph % (Manual) 0 % Nucleated RBC % Not Reportable Neutrophils # (Manual) 37.9 H (1.5-6.6) 10^3/uL Lymphocytes # (Manual) 0.0 L (1.5-3.5) 10^3/uL Monocytes # (Manual) 0.8 (0.0-1.0) 10^3/uL Eosinophils # (Manual) 0.0 (0-0.7) 10^3/uL Basophils # (Manual) 0.0 (0-0.1) 10^3/uL Differential Comment MANUAL DIFFERENTIAL WBC Morphology (NORMAL) Platelet Estimate NORMAL (130-450,000) (NORMAL) Platelet Morphology NORMAL APPEARANCE (NORMAL) RBC Morph Micro Appear NORMAL APPEARANCE (NORMAL) Sodium 141 141 (135-145) mmol/L Potassium 4.0 3.3 L (3.5-5.0) mmol/L Chloride 104 108 (101-111) mmol/L Carbon Dioxide 25 23 (21-32) mmol/L Anion Gap 12.0 10.0 (6-13) BUN 29 H 26 H (6-20) mg/dL Creatinine 1.4 H 1.4 H (0.6-1.2) mg/dL Estimated GFR (MDRD) 49 L 49 L (>89) Glucose 133 H 129 H (70-100) mg/dL Calcium 9.0 8.9 (8.5-10.3) mg/dL 04/22/21 Range/Units 04:40 WBC 25.6 H (4.8-10.8) x10^3/uL RBC 3.91 L (4.70-6.10) 10^6/uL Hgb 11.7 L (14.0-18.0) g/dL Hct 36.1 L (42.0-52.0) % MCV 92.3 (80.0-94.0) fL MCH 29.9 (27.0-31.0) pg MCHC 32.4 (32.0-36.0) g/dL RDW 13.1 (12.0-15.0) % Plt Count 285 (130-450) 10^3/uL MPV 9.5 (7.4-11.4) fL Neut # (Auto) Not Reportable Lymph # (Auto) Not Reportable [place] # (Auto) Not Reportable Eos # (Auto) Not Reportable Baso # (Auto) Not Reportable Absolute Nucleated RBC Not Reportable Total Counted 100 Band Neuts % (Manual) 4 (0 - 10) % Abnorm Lymph % (Manual) 0 % Nucleated RBC % Not Reportable Neutrophils # (Manual) 24.8 H (1.5-6.6) 10^3/uL Lymphocytes # (Manual) 0.3 L (1.5-3.5) 10^3/uL Monocytes # (Manual) 0.3 (0.0-1.0) 10^3/uL Eosinophils # (Manual) 0.3 (0-0.7) 10^3/uL Basophils # (Manual) 0.0 (0-0.1) 10^3/uL Differential Comment MANUAL DIFFERENTIAL WBC Morphology NORMAL APPEARANCE (NORMAL) Platelet Estimate NORMAL (130-450,000) (NORMAL) Platelet Morphology NORMAL APPEARANCE (NORMAL) RBC Morph Micro Appear NORMAL APPEARANCE (NORMAL) Sodium (135-145) mmol/L Potassium (3.5-5.0) mmol/L Chloride (101-111) mmol/L Carbon Dioxide (21-32) mmol/L Anion Gap (6-13) BUN (6-20) mg/dL Creatinine (0.6-1.2) mg/dL Estimated GFR (MDRD) (>89) Glucose (70-100) mg/dL Calcium (8.5-10.3) mg/dL Assessment/Plan - Problem List (1) Leukocytosis Impression: His white count is significantly elevated this morning. It was as high as 26,000 and repeat if you are later is now nearly 39,000. His white count was just normal yesterday. This is predominantly neutrophilic. He is also now having visual hallucinations. He has been hemodynamically stable and appears quite comfortable. Given he is complaining of bladder pain, we will check a urinalysis. We will also obtain a chest x-ray although he does not have a cough or hypoxia. We will also obtain blood cultures. Given he is afebrile, we will hold off on antibiotics at this time. He is not having diarrhea so we will hold off on C. difficile at this time as well. (2) Hallucinations Impression: He is now having visual hallucinations and I suspect is related to delirium and sundowning. He is redirectable and is oriented to self and location. We will hold off on a one-to-one given he is not a harm to himself. We will hold off on Haldol at this time as well. Given his elevated white count, the concern is for infection and we will obtain further work-up as mentioned above. His MRI from April 17 did suggest there may be some restricted diffusion involving the temporal, stable, posterior lobes and the differential was quite broad. If did not have any improvement over the next 24-48 hrs. need to consider repeating MRI or a lumbar puncture. We will therefore hold his Eliquis for the time being. 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 We will continue the increased dose of Keppra. (4) Left-sided muscle weakness Impression: This appears to have resolved. He is moving all 4 extremities although he does have left-sided neglect. MRI showed no evidence of infarct. 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 (6) Afib Impression: He has known history of atrial relation he is on carvedilol and Eliquis. Eliquis was held given concern for acute infarct. Given it appeared he did not have a stroke, Eliquis was resumed but will be held once again as he may need a lumbar puncture. (7) Cardiomyopathy Impression: He has a history of heart failure with reduced ejection fraction but now his EF is preserved. We will continue carvedilol and lisinopril. (8) BPH (benign prostatic hyperplasia) Impression: Continue finasteride and Flomax. Continue with straight cath as needed. We will check a urinalysis given he is complaining of bladder pain and his white count is elevated.
--- NOTE | 2021-04-22 11:30 | XRAY Report ---
PROCEDURE: Chest 1 View X-Ray INDICATIONS: Cough. Leukocytosis. TECHNIQUE: One view of the chest was acquired. COMPARISON: None FINDINGS: Surgical changes and devices: None. Lungs and pleura: No pleural effusions or pneumothorax. Lungs are clear. Right costophrenic angle is not fully included within the [id number] and cannot be evaluated. Mediastinum: Mediastinal contours appear normal. Heart size is mildly prominent. Bones and chest wall: No suspicious bony lesions. Overlying soft tissues appear unremarkable. IMPRESSION: No acute pulmonary process. Reviewed by: Josefina Doshi MD on 04/22/2021 11:29 AM [facility] Approved by: Josefina Doshi MD on 04/22/2021 11:29 AM [facility] Station ID: [id number]
[2021-04-22 12:15] LABS: GLUCOSE, URINE (UA) NEGATIVE (NEGATIVE); KETONES,URINE (UA) TRACE mg/dL (NEGATIVE); LEUKOCYTE ESTERASE, URINE SMALL (NEGATIVE); NITRITE,URINE POSITIVE (NEGATIVE); OCCULT BLOOD,URINE LARGE (NEGATIVE); PROTEIN,URINE 30 mg/dL (NEGATIVE); UROBILINOGEN,URINE 1 (NORMAL) E.U./dL (NORMAL)
[2021-04-22 12:21] LABS: CLARITY,URINE HAZY (CLEAR)
[2021-04-22 12:22] LABS: BILIRUBIN,URINE SMALL (NEGATIVE); ICTOTEST,URINE POSITIVE
[2021-04-22 12:34] LABS: BACTERIA,URINE Moderate /HPF (None Seen); MUCUS,URINE Moderate Strands; RBC,URINE TNTC /HPF (0-5); SQUAMOUS EPITHELIAL CELL,UR RARE Squamous (<= Few); WBC,URINE >25 /HPF (0-3)
[2021-04-22] MEDS: CIPROFLOXACIN 400 MG/200 ML 400 MG/200 ML BAG IV SCH (14:53)
[2021-04-22] MEDS ORDERED: SODIUM CHLORIDE 0.9% 1,000 ML IV ONE ×2 (20:14→20:23)
[2021-04-22] MEDS: ACETAMINOPHEN 500 MG TABLET PO PRN (20:27)
[2021-04-22] MEDS: ATORVASTATIN 40 MG TABLET PO SCH (20:28)
[2021-04-22] MEDS: SODIUM CHLORIDE 0.9% 1,000 ML IV SCH (21:40)
[2021-04-23] MEDS: SODIUM CHLORIDE FLUSH 0.9% 10 ML SYRINGE IVP SCH ×3 (02:59→16:09)
[2021-04-23] MEDS: CIPROFLOXACIN 400 MG/200 ML 400 MG/200 ML BAG IV SCH ×2 (02:59→16:00)
[2021-04-23 05:02] LABS: BASOPHILS # (AUTO) 0.1 10^3/uL (0.0-0.1); BASOPHILS % (AUTO) 0.5 %; EOSINOPHILS # (AUTO) 0.2 10^3/uL (0.0-0.7); HCT - HEMATOCRIT 28.7 % (42.0-52.0); HGB - HEMOGLOBIN 9.4 g/dL (14.0-18.0); LYMPHOCYTES % (AUTO) 5.8 %; MEAN CORPUSCULAR HEMOGLOBIN 30.2 pg (27.0-31.0); MEAN CORPUSCULAR HGB CONC 32.8 g/dL (32.0-36.0); MEAN CORPUSCULAR VOLUME 92.3 fL (80.0-94.0); MEAN PLATELET VOLUME 9.5 fL (7.4-11.4); MONOCYTES # (AUTO) 0.8 10^3/uL (0.0-1.0); MONOCYTES % (AUTO) 4.3 %; NEUTROPHILS # (AUTO) 15.4 10^3/uL (1.5-6.6); NEUTROPHILS % (AUTO) 87.5 %; PLT - PLATELET COUNT 254 10^3/uL (130-450); RED BLOOD COUNT 3.11 10^6/uL (4.70-6.10); RED CELL DISTRIBUTION WIDTH 13.3 % (12.0-15.0); WHITE BLOOD COUNT 17.6 x10^3/uL (4.8-10.8)
[2021-04-23 05:12] LABS: CALCIUM 8.1 mg/dL (8.5-10.3); CREATININE 1.3 mg/dL (0.6-1.2); POTASSIUM 3.7 mmol/L (3.5-5.0)
[2021-04-23] MEDS: SODIUM CHLORIDE 0.9% 1,000 ML IV SCH ×2 (06:26→16:00)
[2021-04-23] MEDS: LORazepam 2 MG/ML VIAL IVP PRN ×3 (06:39→19:36)
[2021-04-23] MEDS: MULTIVITAMIN W/MINERALS TABLET PO SCH (09:19)
[2021-04-23] MEDS: SENNA 8.6 MG TABLET PO SCH (09:20)
[2021-04-23] MEDS: polyethylene glycoL 3350 17 GM PACKET PO SCH (09:20)
[2021-04-23] MEDS: levETIRAcetam 250 MG TABLET PO SCH ×2 (09:20→20:58)
[2021-04-23] MEDS: carvediloL 3.125 MG TABLET PO SCH ×2 (09:21→20:59)
[2021-04-23] MEDS: DOCUSATE SODIUM 250 MG CAPSULE PO SCH (09:21)
[2021-04-23] MEDS: FINASTERIDE 5 MG TABLET PO SCH ×2 (09:21→20:59)
[2021-04-23] MEDS: lisinopriL 20 MG TABLET PO SCH (09:21)
[2021-04-23] MEDS: TAMSULOSIN 0.4 MG CAPSULE PO SCH (09:21)
--- NOTE | 2021-04-23 12:20 | PROVIDER PROGRESS NOTE ---
Progress Note April 23, 2021 07:10 AM Called to patient's room. Patient had been cooperative, with previous issues of behavior, but stable overnight. He has been having increasing hallucinations starting the evening of the . He is seeing dogs, cats, birds in his room. This morning, had been given pills and was cooperating when he suddenly began spitting out the pills. As the nurse was giving him his pills he told her that there was someone behind her. That she need to be careful because her life was in danger. He then decided that she was the danger and called her "communist". Using his legs to kick the nurse. Then started flailing using his arms. Unable to be prompted. 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 By May 2020 he was taking Keppra 750 mg daily. On admission admitted because of left arm twitching that went on to become a generalized tonic-clonic. Since that time it is taking quite a long time for him to recover. He is felt to have a new seizure involving the temporal lobes, occipital lobes, posterior frontal lobes. The differential diagnosis for this includes Bebo of questionable, autoimmune encephalitis, encephalitis, hypoxic brain injury or osmotic demyelination. He has an old focal right occipital infarct, mild to moderate changes. On examination temperature is 36.5. Heart rate 84. 94% on room air. That is stable for him. Blood pressure 96/54. At 1 in the morning he was 98/67. Yesterday afternoon 99/51. Prior to this the patient has been normotensive if not mildly hypertensive. Intake and output has been relatively balanced. On April 21 he was 140 mls positive. On April 22, 1240 mls positive. As of this morning 3+. He is sitting up in bed. At this point in time recognizes that he is in the hospital, or at least a healthcare facility. Does not know what day it is. Sometimes answers my questions, and sometimes goes off on a tangent. Neck is supple. Lungs are clear. Regular rate and rhythm. Abdomen soft, nontender, benign. He has normal bowel sounds. Not distended. Constant complaints of urgency and frequency per nursing. Occasionally incontinent. Has had one stra ight catheter. Left arm slightly weaker than right arm with moving against me. That is baseline for him. Word finding is difficult for him and that is also chronic for him. Labs already drawn this morning show him to have a BUN of 35, creatinine 1.3. He started having his creatinine rise starting yesterday morning. Otherwise electrolytes normal. White cell count was 38,000 yesterday and is now 17,000 today after being started on Cipro. His WBC was normal before 04/22 Assessment/plan: 1. Leukocytosis. Steadily rising with the first elevation on April 22. Accompanied by hallucinations, no fever. He has been having chronic complaints, since admission, of urgency, frequency and needed a straight cath. Urinalysis did show hematuria, pyuria, positive nitrates, positive leukocyte esterase, too numerous to count red cells, greater than 25 white cells, rare squamous epithelial cells, moderate bacteria. Cipro started. Day #2 antibiotics. Will await culture results to see if needs change in therapy. 2. Delirium. He already has baseline dementia, baseline confusion after seizure. With the white cell count, his behavior has deteriorated with hallucinations, and today Sam impulsivity resulting in his kicking out at the nurses, and yanking out IVs. He has been put in temporary four-point restraints and I will reevaluate him in 4 hours. 3. Left-sided muscle weakness. Already has chronic old right occipital infarct. With the new MRI findings he may have had Napoleon's paralysis related to a diffuse global seizure. There is no suspicion of encephalitis, infectious. 4. Postictal confusion has resolved. This was the reason he was admitted. 5. Chronic atrial fibrillation. Continued on Eliquis and carvedilol. 6. History of congestive heart failure. Repeat echo now shows normal ejection fraction. He is continued on carvedilol and lisinopril. 7. Benign prostatic hypertrophy. Currently on finasteride and Flomax. He has been getting as needed straight cath. This may, unfortunate, have led to a UTI.
[2021-04-23] MEDS ORDERED: HALOPERIDOL 5 MG/ML VIAL IVP ONE (12:47)
[2021-04-23] MEDS ORDERED: LORazepam 0.5 MG TABLET SL PRN (16:12)
[2021-04-23] MEDS ORDERED: OLANZapine 10 MG VIAL IM ONE (16:13)
[2021-04-23] MEDS: ACETAMINOPHEN 500 MG TABLET PO PRN (20:58)
[2021-04-23] MEDS: ATORVASTATIN 40 MG TABLET PO SCH (20:59)
[2021-04-24] MEDS: SODIUM CHLORIDE 0.9% 1,000 ML IV SCH ×3 (01:07→17:13)
[2021-04-24] MEDS: LORazepam 2 MG/ML VIAL IVP PRN ×5 (01:11→19:57)
[2021-04-24] MEDS: SODIUM CHLORIDE FLUSH 0.9% 10 ML SYRINGE IVP SCH ×3 (01:11→16:57)
[2021-04-24] MEDS: CIPROFLOXACIN 400 MG/200 ML 400 MG/200 ML BAG IV SCH ×2 (03:16→14:33)
[2021-04-24 05:25] LABS: BASOPHILS # (AUTO) 0.1 10^3/uL (0.0-0.1); BASOPHILS % (AUTO) 0.5 %; EOSINOPHILS # (AUTO) 0.1 10^3/uL (0.0-0.7); EOSINOPHILS % (AUTO) 1.1 %; HCT - HEMATOCRIT 33.4 % (42.0-52.0); HGB - HEMOGLOBIN 10.8 g/dL (14.0-18.0); LYMPHOCYTES # (AUTO) 1.2 10^3/uL (1.5-3.5); MEAN CORPUSCULAR HEMOGLOBIN 29.9 pg (27.0-31.0); MEAN CORPUSCULAR HGB CONC 32.3 g/dL (32.0-36.0); MEAN CORPUSCULAR VOLUME 92.5 fL (80.0-94.0); MEAN PLATELET VOLUME 9.7 fL (7.4-11.4); MONOCYTES % (AUTO) 7.9 %; NEUTROPHILS # (AUTO) 9.7 10^3/uL (1.5-6.6); PLT - PLATELET COUNT 314 10^3/uL (130-450); RED BLOOD COUNT 3.61 10^6/uL (4.70-6.10); RED CELL DISTRIBUTION WIDTH 13.2 % (12.0-15.0); WHITE BLOOD COUNT 12.1 x10^3/uL (4.8-10.8)
[2021-04-24 05:32] LABS: CALCIUM 8.7 mg/dL (8.5-10.3); CREATININE 1.2 mg/dL (0.6-1.2); POTASSIUM 3.6 mmol/L (3.5-5.0)
[2021-04-24] MEDS: carvediloL 3.125 MG TABLET PO SCH ×2 (09:03→20:04)
[2021-04-24] MEDS: FINASTERIDE 5 MG TABLET PO SCH ×2 (09:03→20:04)
[2021-04-24] MEDS: DOCUSATE SODIUM 250 MG CAPSULE PO SCH (09:04)
[2021-04-24] MEDS: levETIRAcetam 250 MG TABLET PO SCH ×2 (09:04→20:04)
[2021-04-24] MEDS: TAMSULOSIN 0.4 MG CAPSULE PO SCH (09:04)
[2021-04-24] MEDS: MULTIVITAMIN W/MINERALS TABLET PO SCH (09:04)
[2021-04-24] MEDS: lisinopriL 20 MG TABLET PO SCH (09:04)
[2021-04-24] MEDS: polyethylene glycoL 3350 17 GM PACKET PO SCH (09:14)
[2021-04-24] MEDS: SENNA 8.6 MG TABLET PO SCH (09:15)
--- NOTE | 2021-04-24 16:06 | PROVIDER PROGRESS NOTE ---
Progress Note April 24, 2021 3:56 PM Between yesterday morning and today he required four-point restraints for violent behavior, then deescalated to four-point restraints for nonviolent behavior. He received Haldol, Zyprexa without much change in his behavior. Ativan was started at 1 mg every 2 hours and that has calmed him down enough that we are removing his restraints today. He still needs a one-to-one sitter. He has had urgency, frequency again. That seems to agitate him. Had greater than 650 cc in his bladder and needed a straight cath by lunchtime. Medications: Tylenol, Lipitor, Coreg, Cipro IV, Colace as needed, Proscar, Keppra, Zestril, Ativan IV and sublingual as needed, multivitamin, Zofran, MiraLAX, Senokot, Flomax. Temperature is 36.7. Heart rate 90. Blood pressure 137/97. Respirations 17 unlabored and O2 sat is 98% on room air. 5 foot 8 inch white male, 68 kg, disheveled, elderly, completely confused. Is starting to follow prompting from the aides and nursing today. He is eating anywhere between 25% -100% of his food if he is coaxed. Neck is supple. Lungs have occasional rhonchi. He starts to cough, and I relistened to his lungs and those rhonchi disappear. No labored respiration. Regular rate and rhythm. Abdomen is soft. Mild suprapubic aching where he slapped my hand away from trying to examine him. But no rebound or guarding and he does have bowel sounds. Nondistended. Bruising of hands, forearms, dorsums of hand, but no skin breakdown. No edema. Labs: BUN 25. Improve from 35 yesterday. Creatinine 1.2. Improved from 1.3 yesterday. Glucose 145. White cell count is coming down. He peaked at 38.7 thousand on the eighth. Today is 12.1. Hemoglobin 10.8. Platelet 314. Assessment/plan 1. Delirium. This is in a gentleman who has baseline dementia but has never been this confused or this combative. is understandably alarmed. At this point in time I can only attribute his delirium to dementia, hospitalization, a UTI. His MRI has also diffuse changes that may be due to prolonged seizures. He has improved somewhat today. Requiring Ativan as needed. Not responding to antipsychotics. We will continue to monitor and hopefully avoid restraints unless he becomes violent again. 2. Leukocytosis. At this time we are attributing it to UTI and urinary retention. Day #3 of Cipro. White cell count is responding to that. 3. 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 That appears to be stable. Right now he cannot cooperate with physical therapy. 4. Postictal confusion had resolved. 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 This is why he was admitted. This new problem of delirium most likely has nothing to do with that other than making everything worse. 5. Chronic atrial fibrillation for which he is on Eliquis and carvedilol. Eliquis was stopped with his violent behavior. We will keep him off Eliquis until he is stable to avoid risk of possibly hurting himself, falling with bleeding. 6. History of congestive heart failure. Echocardiogram has normal ejection fraction now. No change in carvedilol and lisinopril. 7. Benign prostatic hypertrophy with lower urinary tract symptoms of retention. He has had to have quite a few straight caths. This may have caused some of his UTI problems. However, we cannot put a Rodriguez in him because he will only pull it out.
[2021-04-24] MEDS: SODIUM CHLORIDE FLUSH 0.9% 10 ML SYRINGE IVP PRN (19:57)
[2021-04-24] MEDS: ATORVASTATIN 40 MG TABLET PO SCH (20:04)
[2021-04-25] MEDS: SODIUM CHLORIDE FLUSH 0.9% 10 ML SYRINGE IVP SCH ×3 (00:45→16:36)
[2021-04-25] MEDS: SODIUM CHLORIDE 0.9% 1,000 ML IV SCH ×3 (01:12→18:59)
[2021-04-25] MEDS: LORazepam 2 MG/ML VIAL IVP PRN ×5 (01:12→17:54)
[2021-04-25] MEDS: CIPROFLOXACIN 400 MG/200 ML 400 MG/200 ML BAG IV SCH ×2 (02:32→15:26)
[2021-04-25 08:13] LABS: BASOPHILS # (AUTO) 0.1 10^3/uL (0.0-0.1); BASOPHILS % (AUTO) 0.5 %; EOSINOPHILS # (AUTO) 0.1 10^3/uL (0.0-0.7); EOSINOPHILS % (AUTO) 1.1 %; HCT - HEMATOCRIT 30.4 % (42.0-52.0); HGB - HEMOGLOBIN 9.9 g/dL (14.0-18.0); LYMPHOCYTES # (AUTO) 1.6 10^3/uL (1.5-3.5); MEAN CORPUSCULAR HEMOGLOBIN 29.9 pg (27.0-31.0); MEAN CORPUSCULAR HGB CONC 32.6 g/dL (32.0-36.0); MEAN CORPUSCULAR VOLUME 91.8 fL (80.0-94.0); MEAN PLATELET VOLUME 9.2 fL (7.4-11.4); MONOCYTES # (AUTO) 0.7 10^3/uL (0.0-1.0); MONOCYTES % (AUTO) 6.1 %; NEUTROPHILS # (AUTO) 9.1 10^3/uL (1.5-6.6); NEUTROPHILS % (AUTO) 77.8 %; PLT - PLATELET COUNT 300 10^3/uL (130-450); RED BLOOD COUNT 3.31 10^6/uL (4.70-6.10); RED CELL DISTRIBUTION WIDTH 13.3 % (12.0-15.0); WHITE BLOOD COUNT 11.7 x10^3/uL (4.8-10.8)
[2021-04-25 08:22] LABS: CALCIUM 8.6 mg/dL (8.5-10.3); CREATININE 1.1 mg/dL (0.6-1.2); POTASSIUM 3.6 mmol/L (3.5-5.0)
[2021-04-25] MEDS: ACETAMINOPHEN 500 MG TABLET PO PRN (10:07)
[2021-04-25] MEDS: SENNA 8.6 MG TABLET PO SCH (10:09)
[2021-04-25] MEDS: lisinopriL 20 MG TABLET PO SCH (10:10)
[2021-04-25] MEDS: FINASTERIDE 5 MG TABLET PO SCH ×2 (10:10→20:26)
[2021-04-25] MEDS: TAMSULOSIN 0.4 MG CAPSULE PO SCH (10:10)
[2021-04-25] MEDS: DOCUSATE SODIUM 250 MG CAPSULE PO SCH (10:10)
[2021-04-25] MEDS: carvediloL 3.125 MG TABLET PO SCH ×2 (10:10→20:26)
[2021-04-25] MEDS: MULTIVITAMIN W/MINERALS TABLET PO SCH (10:11)
[2021-04-25] MEDS: levETIRAcetam 250 MG TABLET PO SCH ×2 (10:13→20:26)
[2021-04-25] MEDS: polyethylene glycoL 3350 17 GM PACKET PO SCH (10:17)
[2021-04-25] MEDS ORDERED: LIDOCAINE 2% URO-JET 5 ML SYRINGE UR ONE (10:56)
--- NOTE | 2021-04-25 12:03 | PROVIDER PROGRESS NOTE ---
Subjective - Prog Note Date Prog Note Date: 04/25/21 Prog Note Time: 12:01 - Subjective Subjective: He had been out of restraints starting around 7 in the morning of the . But by 6 PM last night needed to be put back in restraints because of combative behavior. He continues to pull at IVs, tries to get out of bed, will try and kick with his legs. His main agitation centers around discomfort. He feels a constant urge to pee. I have decided to go ahead and try and put a Harrison in him as opposed to doing straight catheterization so frequently. Nursing is unable to pass the Harrison. There are clots present. So I do think that he had an elevated white cell count and urinary tract infection from the trauma of pulling out his last Harrison. I have spoken to his and updated her. We spoke a long time about his previous admission for seizures and how long it took him to recover. This then transition to advance care planning conversation that is dictated under separate note. Current Medications - Current Medications Current Medications: Active Medications Acetaminophen (Acetaminophen 500 Mg Tablet) 1,000 mg PO Q6H PRN PRN Reason: Pain or Fever > 38C (100.4F) Last Admin: 04/25/21 10:07 Dose: 1,000 mg Documented by: Atorvastatin Calcium (Atorvastatin 40 Mg Tablet) 40 mg PO QPM [facility] Last Admin: 04/24/21 20:04 Dose: 40 mg Documented by: Carvedilol (Carvedilol 3.125 Mg Tablet) 3.125 mg PO BID [facility] Last Admin: 04/25/21 10:10 Dose: 3.125 mg Documented by: Docusate Sodium (Docusate Sodium 250 Mg Capsule) 250 - 500 mg PO DAILY [facility] Last Admin: 04/25/21 10:10 Dose: 250 mg Documented by: Finasteride (Finasteride 5 Mg Tablet) 5 mg PO BID [facility] Last Admin: 04/25/21 10:10 Dose: 5 mg Documented by: Ciprofloxacin (Cipro 400 Mg/200 Ml) 400 mg in 200 mls @ 200 mls/hr IV Q12H [facility] Last Infusion: 04/25/21 03:40 Dose: Infused Documented by: Sodium Chloride (Normal Saline 0.9%) 1,000 mls @ 125 mls/hr IV .Q8H [facility] Last Admin: 04/25/21 10:18 Dose: 125 mls/hr Documented by: Levetiracetam (Levetiracetam 250 Mg Tablet) 750 mg PO BID [facility] Last Admin: 04/25/21 10:13 Dose: 750 mg Documented by: Lisinopril (Lisinopril 20 Mg Tablet) 20 mg PO DAILY [facility] Last Admin: 04/25/21 10:10 Dose: 20 mg Documented by: Lorazepam (Lorazepam 2 Mg/Ml Vial) 1 mg IVP Q2H PRN PRN Reason: Agitation Last Admin: 04/25/21 10:11 Dose: 1 mg Documented by: Lorazepam (Lorazepam 0.5 Mg Tablet) 1 mg SL Q6H PRN PRN Reason: Anxiety Multivitamins/Minerals (Multivitamin W/Minerals Tablet) 1 tab PO DAILYWM [facility] Last Admin: 04/25/21 10:11 Dose: 1 tab Documented by: Ondansetron HCl (Ondansetron 4 Mg/2 Ml Vial) 4 mg IVP Q6HR PRN PRN Reason: Nausea / Vomiting Last Admin: 04/19/21 18:02 Dose: 4 mg Documented by: Polyethylene Glycol (Polyethylene Glycol 3350 17 Gm Packet) 17 gm PO DAILY [facility] Last Admin: 04/25/21 10:17 Dose: 17 gm Documented by: Senna (Senna 8.6 Mg Tablet) 8.6 - 17.2 mg PO DAILY [facility] Last Admin: 04/25/21 10:09 Dose: 8.6 mg Documented by: Sodium Chloride (Sodium Chloride Flush 0.9% 10 Ml Syringe) 10 ml IVP PRN PRN PRN Reason: NEEDED PER PROVIDER ORDERS Last Admin: 04/24/21 19:57 Dose: 10 ml Documented by: Sodium Chloride (Sodium Chloride Flush 0.9% 10 Ml Syringe) 10 ml IVP 0100,0900 ,1700 [facility] Last Admin: 04/25/21 10:30 Dose: Not Given Documented by: Tamsulosin HCl (Tamsulosin 0.4 Mg Capsule) 0.4 mg PO DAILY [facility] Last Admin: 04/25/21 10:10 Dose: 0.4 mg Documented by: Apixaban [Eliquis] 1 tab PO DAILY 04/13/21 Finasteride [Proscar] 5 mg PO DAILY 04/13/21 Lisinopril [Zestril] 20 mg PO DAILY 04/13/21 Tamsulosin [Flomax] 0.4 mg PO DAILY 04/13/21 Objective - Vital Signs/Intake & Output Reviewed Vital Signs: Yes Vital Signs: Vital Signs x48h Temp Pulse Resp BP Pulse Ox 04/25/21 10:00 104 H 165/84 H 04/25/21 07:36 37.0 C 77 20 140/67 H 97 Intake & Output: Intake & Output 04/22/21 04/23/21 04/24/21 04/25/21 23:59 23:59 23:59 23:59 Intake Total 1815 2915.833 2447.917 2517.917 Output Total 830 409 7870 1400 Balance 1640 1940.833 97.917 1117.917 - Objective General Appearance: positive: Alert, Moderate distress (As manifested by constant pulling at restraints, slight moaning due to nonspecific distress that he cannot tell me what hurts, constant trying to get out of bed. He is verbal but not in a purposeful way to communicate.), Other (Elderly, uncomfortable gentleman who is 5 foot 8 inches tall and weighs 68 kg) Eyes Bilateral: positive: PERRL, EOMI ENT: positive: No signs of dehydration Neck: positive: No JVD. negative: Stiff neck Respiratory: positive: No respiratory distress. negative: Wheezes, Rales, Rhonchi Cardiovascular: positive: Regular rate & rhythm, Systolic murmur. negative: Gallop/S4, Friction rub Abdomen: positive: No organomegaly, Nml bowel sounds, No distention, Tenderness (Grimaces and slightly moans when I touch over his bladder area) Skin: positive: Warm, Dry, Pallor Extremities: positive: Full ROM, No pedal edema Neurologic/Psychiatric: positive: CN's nml (2-12), Motor nml, Disoriented to person, Disoriented to place, Disoriented to time. negative: Depressed mood/affect (Delirium) - Lab Results Fish Bones: 04/25/21 08:00 04/25/21 08:00 Other Labs: Lab Results x24hrs 04/25/21 04/25/21 Range/Units 08:00 08:00 WBC 11.7 H (4.8-10.8) x10^3/uL RBC 3.31 L (4.70-6.10) 10^6/uL Hgb 9.9 L (14.0-18.0) g/dL Hct 30.4 L (42.0-52.0) % MCV 91.8 (80.0-94.0) fL MCH 29.9 (27.0-31.0) pg MCHC 32.6 (32.0-36.0) g/dL RDW 13.3 (12.0-15.0) % Plt Count 300 (130-450) 10^3/uL MPV 9.2 (7.4-11.4) fL Neut # (Auto) 9.1 H (1.5-6.6) 10^3/uL Lymph # (Auto) 1.6 (1.5-3.5) 10^3/uL Coffee # (Auto) 0.7 (0.0-1.0) 10^3/uL Eos # (Auto) 0.1 (0.0-0.7) 10^3/uL Baso # (Auto) 0.1 (0.0-0.1) 10^3/uL Absolute Nucleated RBC 0.00 x10^3/uL Nucleated RBC % 0.0 /100WBC Sodium 145 (135-145) mmol/L Potassium 3.6 (3.5-5.0) mmol/L Chloride 114 H (101-111) mmol/L Carbon Dioxide 23 (21-32) mmol/L Anion Gap 8.0 (6-13) BUN 20 (6-20) mg/dL Creatinine 1.1 (0.6-1.2) mg/dL Estimated GFR (MDRD) 64 L (>89) Glucose 104 H (70-100) mg/dL Calcium 8.6 (8.5-10.3) mg/dL ABX Reporting Has patient been on IV antibiotics over the past 48 hours?: Yes Assessment/Plan - Problem List (1) UTI (urinary tract infection) Impression: This is a gentleman who has an enlarged prostate. Has had urinary retention while he is here requiring multiple straight caths. He would get very agitated with urgency, need to urinate and unable to. We finally ended up putting in a Harrison with immediate relief of his agitation. Unfortunately in his confusion, 1 night, he pulled the Harrison out. Within 24 to 48 hours he developed delirium, leukocytosis, and a negative urine culture but we assume a UTI. The leukocytosis is improving with antibiotic therapy. But he continues to have urgency and frequency requiring frequent straight cath. Today we cannot even put in a straight cath because of blood clots, and nursing staff is reaching out to me to ask if there is someone else we can asked to put in the Harrison. Plan: I will try and identify a provider that can do difficult Harrison placements. Day #4 of planned 14 days of antibiotics due to probable urethral trauma, prostate trauma. Qualifiers: Urinary tract infection type: acute cystitis (2) Delirium Impression: with the leukocytosis he also began having visual hallucinations. I suspect is related to delirium and sundowning and worsened by a UTI. He was redirectable and was oriented to self and location. His MRI from April 17 did suggest there may be some restricted diffusion involving the temporal, stable, posterior lobes and the differential was quite broad. That change we believe was due to the prolonged and severe seizure he had. By the next day, hallucinations continued and then he suddenly was afraid of the nurse and began kicking, pulling out his IV, flailing his arms. We initiated violent restraints. We have taken away the violent restraints and now he is on nonviolent, upper/lower limb soft restraints. That started yesterday evening and continues into today. He still wants to keep on getting out of bed. Keeps on wanting to pull at the IV. We have a one-to-one sitter with him. He is not redirectable. Not oriented. Plan: White cell count is coming down, no fever, and anticipate that he will gradually recover. His lets us know that it took him 3 months to recover from the last time he had a seizure in May 2020. 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 We will continue the increased dose of Keppra.We will check Keppra dose today. Wanting to make sure this is not contributing to problem #2. 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 Impression: He had an acute worsening when he was admitted but that has resolved. He is mo ving all 4 extremities although he does have left-sided neglect. MRI showed no evidence of infarct. 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 Prior to admission, even though he had slight left body weakness, he was ambulating independently. Feeding himself, dressing himself. Our goal is to get him back to that once he can cooperate with physical therapy. (6) Afib, chronic Impression: He has known history of atrial relation. he was on carvedilol and Eliquis. Eliquis was held given concern for acute infarct. Given it appeared he did not have a stroke, Eliquis was resumed but will be held once again as we thought he would need a lumbar puncture for encephalitis. But since his WBC is going down, no fever, no new seizures, will need to resume it for risk of embolic stroke. But he is so combative, a danger to himself, having clots in the urethra, that I will bridge w Lovenox until he can not hurt himself, or fall. (7) History of CHF with preserved EF. Impression: He has a history of heart failure with reduced ejection fraction but now his EF is preserved. We will continue carvedilol and lisinopril. (8) BPH (benign prostatic hyperplasia) Impression: Continue finasteride and Flomax. will try to place harrison. have tried urojet bu t still not helpful with his discomfort. Will ask ER or Surgery if they can place harrison.
--- NOTE | 2021-04-25 12:24 | ADVANCE CARE PLANNING NOTE ---
Advance Care Planning - Planning Encounter Date: 04/25/21 Time: 12:22 Purpose: Establish goals of care and discuss CODE STATUS Parties in Attendance: Hospitalist, . Decisional Capacity of the Patient: Able to participate due to delirium, confusion at this time - Diagnosis for Encounter (1) Seizure as late effect of cerebrovascular accident (CVA) Summary: 80-year-old white male with independent living status, living with his but then had parietal stroke in October 2019. Subsequent left-sided focal seizures developed. Then status epilepticus in May 2020. Compliant with medication but presented with left arm twitching on day of admission that went on to become generalized tonic-clonic seizure that was quite severe. Obtunded in the emerg ency room. CT with old stroke in the right parietal region. Loaded with Keppra. Continues to have marked confusion, pulling at his Rodriguez, picking at his skin, and agitated. Placed in observation status thinking that he would recover from Napoleon's paralysis. However states that the last time he did this in May 2020, it took him 3 months to recover. - Encounter Subjective/Patient's Story: Other he had problems with his prostate, for the most part he was an independent gentleman. He and his have been for 57 years. He drove, paid bills, and fully participated in an active life until he had his stroke. He gradually recovered from the effects of the stroke but was left with slight left-sided body weakness. Then he developed the seizures. The seizure in May 2020 was very severe and it took him 3 months to recover. She said "he was like a vegetable". He did not want to do anything, would sit and stare for hours at a time. He finally recovered and by February 2021 she felt like he was back to normal. The only bump in the road was that he could not drive. They have not let him drive since May 2020 and he was irritated by that. But he gets up every morning, even before her, dresses himself. Drinks coffee. Goes out to feed the birds by walking down the steps from the porch into the backyard. Was completely ambulatory without assist. Completely independent with activities of daily living. Again the only thing he was not allowed to do was drive a car. Then he had the seizure. Severe postictal confusion and most likely Napoleon's paralysis. She is understandably upset at how much of a step backwards he has had. She is fearful that it will take him another 3 months to recover from this like it took before. She and he have discussed some advance care planning goals. For instance he would never want to live in a fdc if he was permanently disabled. If he cannot take care of himself with feeding, bathing, dressing, he does not want to be kept alive. I did discuss that he is a full code. I discussed what a resuscitative effort meant with regards to chest compressions, intubation, epinephrine, cardioversions, and she does not want that. She states that he would not want that. If he gets to that point, he does not want to be kept alive to then be resuscitated to have to be permanently placed somewhere or to require permanent care. They have never really discussed what would happen if both of them or one of them got old enough that they could no longer live at home independently. They just thought it would never happen to them. They do have 2 daughters. 1 daughter lives 2 hours away, and one daughter lives nearby. They have peripherally discussed these topics with the daughters but never sat down to share with them their goals of care. Objective/Medical Story: He is an elderly gentleman who is not felt to have dementia. While he may be forgetful, he was independent with activities of daily living, and enjoyed life. His states that she and he would have great conversations about politics, the news, their kids. This current status of confusion, memory loss is new for him. 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 MRI does not confirm a new stroke. He has an old parietal right stroke. Diffuse changes on MRI of frontal, parietal and occipital lobes. The differential of encephalitis, B[place] Gerardo, and anoxic brain injury were postulated by radiology. Putting it altogether with his clinical picture, I think he just had a prolonged seizure with diffuse MRI changes. He has a long history of benign prostatic hypertrophy and that has been complicated by retention. He has had frequent straight caths that resulted in a Rodriguez. He then pulled out the Rodriguez, traumatized his urethra and probable prostate. Now has a UTI with an elevated white cell count, need to treat with antibiotics. Delirium has been a complication. He is needing four-point restraints. Goals of Care: 1. He does not want long-term assisted facility placement 2. He does not want to live life if he is bedbound, and/or completely dependent on people to bathe him, feed him, or have to change his diaper. 3. with a.m. for goal of returning him back to his baseline status of independent ambulation, independent activities of daily living to take him home. To that end she would like rehab to get him to that point. 4. As his power of energy attorney she does not want full CODE STATUS I would like him changed to DO NOT RESUSCITATE. She states that he would not want that. Plan: Work towards the goals that she is set. Once he is cooperative with physical therapy that will be implemented. In the meantime hopefully get him off of restraints and avoid Ativan. I am hoping that will be soon since his white cell count is coming down and he is responding to Cipro. Change CODE STATUS to DO NOT RESUSCITATE Code Status: Do Not Attempt Resuscitation Time spent on advance care plannin minutes
[2021-04-25] MEDS: HYDROmorphone 0.5 MG/0.5 ML SYRINGE IVP PRN (15:26)
[2021-04-25] MEDS: SODIUM CHLORIDE FLUSH 0.9% 10 ML SYRINGE IVP PRN (17:54)
[2021-04-25] MEDS: ATORVASTATIN 40 MG TABLET PO SCH (20:26)
[2021-04-25] MEDS: ENOXAPARIN 60 MG/0.6 ML SYRINGE SUBQ SCH (20:26)
[2021-04-26] MEDS: LORazepam 2 MG/ML VIAL IVP PRN ×3 (01:30→11:22)
[2021-04-26] MEDS: SODIUM CHLORIDE 0.9% 1,000 ML IV SCH ×3 (02:51→21:07)
[2021-04-26] MEDS: CIPROFLOXACIN 400 MG/200 ML 400 MG/200 ML BAG IV SCH ×2 (02:52→15:17)
[2021-04-26] MEDS: SODIUM CHLORIDE FLUSH 0.9% 10 ML SYRINGE IVP SCH ×3 (02:52→15:41)
[2021-04-26 05:21] LABS: BASOPHILS # (AUTO) 0.1 10^3/uL (0.0-0.1); BASOPHILS % (AUTO) 0.7 %; EOSINOPHILS # (AUTO) 0.2 10^3/uL (0.0-0.7); EOSINOPHILS % (AUTO) 1.7 %; HCT - HEMATOCRIT 30.3 % (42.0-52.0); LYMPHOCYTES # (AUTO) 1.9 10^3/uL (1.5-3.5); LYMPHOCYTES % (AUTO) 21.3 %; MEAN CORPUSCULAR HEMOGLOBIN 29.8 pg (27.0-31.0); MEAN CORPUSCULAR VOLUME 90.2 fL (80.0-94.0); MEAN PLATELET VOLUME 9.3 fL (7.4-11.4); MONOCYTES # (AUTO) 0.6 10^3/uL (0.0-1.0); MONOCYTES % (AUTO) 7.2 %; NEUTROPHILS % (AUTO) 68.6 %; PLT - PLATELET COUNT 309 10^3/uL (130-450); RED BLOOD COUNT 3.36 10^6/uL (4.70-6.10); RED CELL DISTRIBUTION WIDTH 13.1 % (12.0-15.0); WHITE BLOOD COUNT 8.7 x10^3/uL (4.8-10.8)
[2021-04-26 05:30] LABS: CALCIUM 8.3 mg/dL (8.5-10.3); POTASSIUM 3.2 mmol/L (3.5-5.0)
[2021-04-26] MEDS ORDERED: POTASSIUM CHLORIDE 20 MEQ TABLET PO ONE (06:58)
[2021-04-26] MEDS: MULTIVITAMIN W/MINERALS TABLET PO SCH (07:47)
[2021-04-26] MEDS: DOCUSATE SODIUM 250 MG CAPSULE PO SCH (08:41)
[2021-04-26] MEDS: polyethylene glycoL 3350 17 GM PACKET PO SCH (08:41)
[2021-04-26] MEDS: SENNA 8.6 MG TABLET PO SCH (08:41)
[2021-04-26] MEDS: carvediloL 3.125 MG TABLET PO SCH ×2 (08:42→22:12)
[2021-04-26] MEDS: TAMSULOSIN 0.4 MG CAPSULE PO SCH (08:42)
[2021-04-26] MEDS: levETIRAcetam 250 MG TABLET PO SCH ×2 (08:42→22:11)
[2021-04-26] MEDS: lisinopriL 20 MG TABLET PO SCH (08:42)
[2021-04-26] MEDS: ENOXAPARIN 60 MG/0.6 ML SYRINGE SUBQ SCH ×2 (08:42→22:12)
[2021-04-26] MEDS: FINASTERIDE 5 MG TABLET PO SCH ×2 (08:42→22:12)
--- NOTE | 2021-04-26 10:55 | PROVIDER PROGRESS NOTE ---
Subjective - Prog Note Date Prog Note Date: 04/26/21 Prog Note Time: 10:52 - Subjective Subjective: he was able to self cath for us yesterday. down to 2 limb restraints to keep him from pulling at IV. sleepy. Current Medications - Current Medications Current Medications: Active Medications Acetaminophen (Acetaminophen 500 Mg Tablet) 1,000 mg PO Q6H PRN PRN Reason: Pain or Fever > 38C (100.4F) Last Admin: 04/25/21 10:07 Dose: 1,000 mg Documented by: Atorvastatin Calcium (Atorvastatin 40 Mg Tablet) 40 mg PO QPM [facility] Last Admin: 04/25/21 20:26 Dose: 40 mg Documented by: Carvedilol (Carvedilol 3.125 Mg Tablet) 3.125 mg PO BID [facility] Last Admin: 04/26/21 08:42 Dose: 3.125 mg Documented by: Docusate Sodium (Docusate Sodium 250 Mg Capsule) 250 - 500 mg PO DAILY [facility] Last Admin: 04/26/21 08:41 Dose: 250 mg Documented by: Enoxaparin Sodium (Enoxaparin 60 Mg/0.6 Ml Syringe) 60 mg SUBQ BID [facility] Last Admin: 04/26/21 08:42 Dose: 60 mg Documented by: Finasteride (Finasteride 5 Mg Tablet) 5 mg PO BID [facility] Last Admin: 04/26/21 08:42 Dose: 5 mg Documented by: Hydromorphone HCl (Hydromorphone 0.5 Mg/0.5 Ml Syringe) 0.5 mg IVP Q2H PRN PRN Reason: PAIN Last Admin: 04/25/21 15:26 Dose: 0.5 mg Documented by: Ciprofloxacin (Cipro 400 Mg/200 Ml) 400 mg in 200 mls @ 200 mls/hr IV Q12H [facility] Last Infusion: 04/26/21 04:00 Dose: Infused Documented by: Sodium Chloride (Normal Saline 0.9%) 1,000 mls @ 125 mls/hr IV .Q8H [facility] Last Admin: 04/26/21 02:51 Dose: 125 mls/hr Documented by: Levetiracetam (Levetiracetam 250 Mg Tablet) 750 mg PO BID [facility] Last Admin: 04/26/21 08:42 Dose: 750 mg Documented by: Lisinopril (Lisinopril 20 Mg Tablet) 20 mg PO DAILY [facility] Last Admin: 04/26/21 08:42 Dose: 20 mg Documented by: Lorazepam (Lorazepam 2 Mg/Ml Vial) 1 mg IVP Q2H PRN PRN Reason: Agitation Last Admin: 04/26/21 03:40 Dose: 1 mg Documented by: Lorazepam (Lorazepam 0.5 Mg Tablet) 1 mg SL Q6H PRN PRN Reason: Anxiety Multivitamins/Minerals (Multivitamin W/Minerals Tablet) 1 tab PO DAILYWM [facility] Last Admin: 04/26/21 07:47 Dose: 1 tab Documented by: Ondansetron HCl (Ondansetron 4 Mg/2 Ml Vial) 4 mg IVP Q6HR PRN PRN Reason: Nausea / Vomiting Last Admin: 04/19/21 18:02 Dose: 4 mg Documented by: Polyethylene Glycol (Polyethylene Glycol 3350 17 Gm Packet) 17 gm PO DAILY [facility] Last Admin: 04/26/21 08:41 Dose: 17 gm Documented by: Senna (Senna 8.6 Mg Tablet) 8.6 - 17.2 mg PO DAILY [facility] Last Admin: 04/26/21 08:41 Dose: 8.6 mg Documented by: Sodium Chloride (Sodium Chloride Flush 0.9% 10 Ml Syringe) 10 ml IVP PRN PRN PRN Reason: NEEDED PER PROVIDER ORDERS Last Admin: 04/25/21 17:54 Dose: 10 ml Documented by: Sodium Chloride (Sodium Chloride Flush 0.9% 10 Ml Syringe) 10 ml IVP 0100,0900, 1700 [facility] Last Admin: 04/26/21 08:42 Dose: 10 ml Documented by: Tamsulosin HCl (Tamsulosin 0.4 Mg Capsule) 0.4 mg PO DAILY [facility] Last Admin: 04/26/21 08:42 Dose: 0.4 mg Documented by: Apixaban [Eliquis] 1 tab PO DAILY 04/13/21 Finasteride [Proscar] 5 mg PO DAILY 04/13/21 Lisinopril [Zestril] 20 mg PO DAILY 04/13/21 Tamsulosin [Flomax] 0.4 mg PO DAILY 04/13/21 Objective - Vital Signs/Intake & Output Reviewed Vital Signs: Yes Vital Signs: Vital Signs x48h Temp Pulse Resp BP Pulse Ox 04/26/21 05:00 36.5 C 106 H 20 143/86 H 95 Intake & Output: Intake & Output 04/23/21 04/24/21 04/25/21 04/26/21 23:59 23:59 23:59 23:59 Intake Total 2915.833 2447.917 4132.917 1183.333 Output Total 975 2350 3200 1400 Balance 1940.833 97.917 932.917 -216.667 - Objective General Appearance: positive: Other (sleeping but wakens. last night restless and ativan used 1:30 am and 3:30 am. none since) Eyes Bilateral: positive: PERRL, EOMI ENT: positive: No signs of dehydration Neck: positive: No JVD. negative: Lymphadenopathy (R), Lymphadenopathy (L) Respiratory: positive: No respiratory distress. negative: Wheezes, Rales, Rhonchi Cardiovascular: positive: Regular rate & rhythm. negative: Gallop/S4, Friction rub Abdomen: positive: No organomegaly, Nml bowel sounds, No distention, Tenderness (mild over suprapubic area but no mass felt) Skin: positive: Warm, Dry Extremities: positive: Full ROM, No pedal edema Neurologic/Psychiatric: positive: CN's nml (2-12), Disoriented to place, Disoriented to time. negative: Motor nml (unsteady on his feet.) - Lab Results Fish Bones: 04/26/21 04:20 04/26/21 04:20 Other Labs: Lab Results x24hrs 04/26/21 04/26/21 Range/Units 04:20 04:20 WBC 8.7 (4.8-10.8) x10^3/uL RBC 3.36 L (4.70-6.10) 10^6/uL Hgb 10.0 L (14.0-18.0) g/dL Hct 30.3 L (42.0-52.0) % MCV 90.2 (80.0-94.0) fL MCH 29.8 (27.0-31.0) pg MCHC 33.0 (32.0-36.0) g/dL RDW 13.1 (12.0-15.0) % Plt Count 309 (130-450) 10^3/uL MPV 9.3 (7.4-11.4) fL Neut # (Auto) 6.0 (1.5-6.6) 10^3/uL Lymph # (Auto) 1.9 (1.5-3.5) 10^3/uL [place] # (Auto) 0.6 (0.0-1.0) 10^3/uL Eos # (Auto) 0.2 (0.0-0.7) 10^3/uL Baso # (Auto) 0.1 (0.0-0.1) 10^3/uL Absolute Nucleated RBC 0.00 x10^3/uL Nucleated RBC % 0.0 /100WBC Sodium 142 (135-145) mmol/L Potassium 3.2 L (3.5-5.0) mmol/L Chloride 110 (101-111) mmol/L Carbon Dioxide 23 (21-32) mmol/L Anion Gap 9.0 (6-13) BUN 15 (6-20) mg/dL Creatinine 1.0 (0.6-1.2) mg/dL Estimated GFR (MDRD) 72 L (>89) Glucose 101 H (70-100) mg/dL Calcium 8.3 L (8.5-10.3) mg/dL ABX Reporting Has patient been on IV antibiotics over the past 48 hours?: Yes Assessment/Plan - Problem List (1) UTI (urinary tract infection) Impression: This is a gentleman who has an enlarged prostate. Has had urinary retention while he is here requiring multiple straight caths. He would get very agitated with urgency, need to urinate and unable to. We finally ended up putting in a Rodriguez with immediate relief of his agitation. Unfortunately in his confusion, 1 night, he pulled the Rodriguez out. Within 24 to 48 hours he developed delirium, leukocytosis, and a negative urine culture but we assume a UTI. He has clots of blood when we tried to straight cath 04/25 The leukocytosis of 39K has resolved with antibiotic therapy. Normal WBC today. But he continues to have urgency and frequency requiring frequent straight cath. 04/25 nursing could not put in a straight cath because of blood clots, and unable to advance catheter so nursing staff reached out to me to ask if there is someone else we can asked to put in the Rodriguez. I did call the emergency room. The health community nutrition educator there was trying to find a nurse that could help us. But in the meantime, the patient asked if he could do this. In spite of his delirium he does have moments of lucidity. He has straight caths himself before. As such we gave him the catheter after preparing him for sterile technique and he was able to drain his bladder on his own using the straight cath. Day #5 ciprofloxacin. Since there is trauma, possible prostatitis or prostate trauma, I am leaning closer to 14 days of therapy. We will continue to monitor clinically. Qualifiers: Urinary tract infection type: acute cystitis (2) Delirium improving Impression: 04/21: with the leukocytosis he also began having visual hallucinations. I suspect is related to delirium and sundowning and worsened by a UTI. He was redirectable and was oriented to self and location. His MRI from April 17 did suggest there may be some restricted diffusion involving the temporal, stable, posterior lobes and the differential was quite broad. That change we believe was due to the prolonged and severe seizure he had. 04/22: Hallucinations present but redirectable and not needing haldol or restrai nts 04/23: in the pharmacy intake coordinator around 5:30 am, hallucinations continued and then he suddenly was afraid of the nurse and began kicking, pulling out his IV, flailing his arms. We initiated violent restraints. Haldol and Zyprexa used as one time doses. By 7 pm could be transitioned to nonviolent restraints. 04/24: Continued on on nonviolent, upper/lower limb soft restraints. He still wants to keep on getting out of bed. Keeps on wanting to pull at the IV. We have a one-to-one sitter with him. He is not redirectable. Not oriented. Ativan 1 mg since 04/18 is used prn. 04/25: Ativan used 5 times in 24 hours. By 7 pm restraints reduced to 2 extremity from 4 extremity. He was able to self cath himself. Still impulsive and wants to go home and wants to get out of bed. No longerf needing 1:1 today, sleepy but arouseable. 2 limb restraints. going to remove them and see how he does. Plan: White cell count is normal, no fever, and anticipate that he will gradually recover. His lets us know that it took him 3 months to recover from the last time he had a seizure in May 2020. 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 We will continue the increased dose of Keppra. Keppra lab order done and lab has recieved the specimen. Wanting to make sure this is not contributing to problem #2. Will review results once they are in [facility]. 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 Impression: He had an acute worsening when he was admitted but that has resolved. He is moving all 4 extremities although he does have left-sided neglect. MRI showed no evidence of infarct. 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 Prior to admission, even though he had slight left body weakness, he was ambulating independently. Feeding himself, dressing himself. Our goal is to get him back to that once he can cooperate with physical therapy. He may need temporary rehab at SNF to get to that goal and then return to home with . (6) Afib, chronic Impression: He has known history of atrial relation. he was on carvedilol and Eliquis. Eliquis was held given concern for acute infarct. Given it appeared he did not have a stroke, Eliquis was resumed but was held once again as we thought he would need a lumbar puncture for encephalitis. But since his WBC is going down, no fever, no new seizures, will need to resume it for risk of embolic stroke. Since he was so combative, a danger to himself, having clots in the urethra, that I bridged w Lovenox until he could not hurt himself, or fall. I am hoping to resume Eliquis once restraints are permanently removed. (7) History of CHF with preserved EF. Impression: He has a history of heart failure with reduced ejection fraction but now his EF is preserved. We will continue carvedilol and lisinopril. (8) BPH (benign prostatic hyperplasia) with LUTS Impression: Continue finasteride and Flomax. Thankfully he was able to self cath yesterday, and we will continue to monitor. (9) Hypokalemia supplement po.
[2021-04-26] MEDS: ATORVASTATIN 40 MG TABLET PO SCH (22:12)
[2021-04-27] MEDS: CIPROFLOXACIN 400 MG/200 ML 400 MG/200 ML BAG IV SCH ×2 (02:54→14:30)
[2021-04-27 05:13] LABS: BASOPHILS % (AUTO) 0.6 %; EOSINOPHILS # (AUTO) 0.2 10^3/uL (0.0-0.7); EOSINOPHILS % (AUTO) 2.1 %; HCT - HEMATOCRIT 28.6 % (42.0-52.0); HGB - HEMOGLOBIN 9.2 g/dL (14.0-18.0); LYMPHOCYTES # (AUTO) 1.7 10^3/uL (1.5-3.5); LYMPHOCYTES % (AUTO) 24.2 %; MEAN CORPUSCULAR HEMOGLOBIN 29.5 pg (27.0-31.0); MEAN CORPUSCULAR HGB CONC 32.2 g/dL (32.0-36.0); MEAN CORPUSCULAR VOLUME 91.7 fL (80.0-94.0); MEAN PLATELET VOLUME 9.1 fL (7.4-11.4); MONOCYTES # (AUTO) 0.6 10^3/uL (0.0-1.0); MONOCYTES % (AUTO) 8.5 %; NEUTROPHILS # (AUTO) 4.5 10^3/uL (1.5-6.6); NEUTROPHILS % (AUTO) 63.7 %; PLT - PLATELET COUNT 291 10^3/uL (130-450); RED BLOOD COUNT 3.12 10^6/uL (4.70-6.10); RED CELL DISTRIBUTION WIDTH 13.1 % (12.0-15.0)
[2021-04-27 05:23] LABS: CALCIUM 7.9 mg/dL (8.5-10.3); CREATININE 0.9 mg/dL (0.6-1.2); POTASSIUM 3.3 mmol/L (3.5-5.0)
[2021-04-27] MEDS: SODIUM CHLORIDE 0.9% 1,000 ML IV SCH ×4 (05:23→22:31)
[2021-04-27] MEDS: SODIUM CHLORIDE FLUSH 0.9% 10 ML SYRINGE IVP SCH ×3 (05:23→15:41)
[2021-04-27] MEDS: MULTIVITAMIN W/MINERALS TABLET PO SCH (07:56)
[2021-04-27] MEDS ORDERED: POTASSIUM CHLORIDE 20 MEQ TABLET PO ONE (08:00)
--- NOTE | 2021-04-27 08:00 | PROVIDER PROGRESS NOTE ---
Subjective - Prog Note Date Prog Note Date: 04/27/21 Prog Note Time: 10:19 - Subjective Subjective: He has no recollection of the delirium, behavioral disturbance. He just keeps on saying he wants to go home. Today his request is for a burger and fries. He is sitting up in his chair. Watching TV. No restraints, hasn't used them since yesterday. No Ativan since close to noon yesterday either. He tells me he doesn't have any problems. The only thing that is bothering him is that urine sensation avoids wanting to go. Current Medications - Current Medications Current Medications: Active Medications Acetaminophen (Acetaminophen 500 Mg Tablet) 1,000 mg PO Q6H PRN PRN Reason: Pain or Fever > 38C (100.4F) Last Admin: 04/25/21 10:07 Dose: 1,000 mg Documented by: Atorvastatin Calcium (Atorvastatin 40 Mg Tablet) 40 mg PO QPM [facility] Last Admin: 04/26/21 22:12 Dose: 40 mg Documented by: Carvedilol (Carvedilol 3.125 Mg Tablet) 3.125 mg PO BID [facility] Last Admin: 04/26/21 22:12 Dose: 3.125 mg Documented by: Docusate Sodium (Docusate Sodium 250 Mg Capsule) 250 - 500 mg PO DAILY [facility] Last Admin: 04/27/21 08:13 Dose: 250 mg Documented by: Enoxaparin Sodium (Enoxaparin 60 Mg/0.6 Ml Syringe) 60 mg SUBQ BID [facility] Last Admin: 04/27/21 08:14 Dose: 60 mg Documented by: Finasteride (Finasteride 5 Mg Tablet) 5 mg PO BID [facility] Last Admin: 04/27/21 08:13 Dose: 5 mg Documented by: Hydromorphone HCl (Hydromorphone 0.5 Mg/0.5 Ml Syringe) 0.5 mg IVP Q2H PRN PRN Reason: PAIN Last Admin: 04/25/21 15:26 Dose: 0.5 mg Documented by: Ciprofloxacin (Cipro 400 Mg/200 Ml) 400 mg in 200 mls @ 200 mls/hr IV Q12H [facility] Last Infusion: 04/27/21 04:07 Dose: Infused Documented by: Sodium Chloride (Normal Saline 0.9%) 1,000 mls @ 125 mls/hr IV .Q8H [facility] Last Admin: 04/27/21 06:25 Dose: 125 mls/hr Documented by: Levetiracetam (Levetiracetam 250 Mg Tablet) 750 mg PO BID [facility] Last Admin: 04/27/21 08:13 Dose: 750 mg Documented by: Lisinopril (Lisinopril 20 Mg Tablet) 20 mg PO DAILY [facility] Last Admin: 04/27/21 08:16 Dose: 20 mg Documented by: Lorazepam (Lorazepam 2 Mg/Ml Vial) 1 mg IVP Q2H PRN PRN Reason: Agitation Last Admin: 04/26/21 11:22 Dose: 1 mg Documented by: Lorazepam (Lorazepam 0.5 Mg Tablet) 1 mg SL Q6H PRN PRN Reason: Anxiety Multivitamins/Minerals (Multivitamin W/Minerals Tablet) 1 tab PO DAILYWM [facility] Last Admin: 04/27/21 07:56 Dose: 1 tab Documented by: Ondansetron HCl (Ondansetron 4 Mg/2 Ml Vial) 4 mg IVP Q6HR PRN PRN Reason: Nausea / Vomiting Last Admin: 04/19/21 18:02 Dose: 4 mg Documented by: Polyethylene Glycol (Polyethylene Glycol 3350 17 Gm Packet) 17 gm PO DAILY [facility] Last Admin: 04/27/21 08:17 Dose: Not Given Documented by: Senna (Senna 8.6 Mg Tablet) 8.6 - 17.2 mg PO DAILY [facility] Last Admin: 04/27/21 08:17 Dose: 8.6 mg Documented by: Sodium Chloride (Sodium Chloride Flush 0.9% 10 Ml Syringe) 10 ml IVP PRN PRN PRN Reason: NEEDED PER PROVIDER ORDERS Last Admin: 04/25/21 17:54 Dose: 10 ml Documented by: Sodium Chloride (Sodium Chloride Flush 0.9% 10 Ml Syringe) 10 ml IVP 0100,0900,1700 [facility] Last Admin: 04/27/21 08:18 Dose: Not Given Documented by: Tamsulosin HCl (Tamsulosin 0.4 Mg Capsule) 0.4 mg PO DAILY [facility] Last Admin: 04/27/21 08:13 Dose: 0.4 mg Documented by: Apixaban [Eliquis] 1 tab PO DAILY 04/13/21 Finasteride [Proscar] 5 mg PO DAILY 04/13/21 Lisinopril [Zestril] 20 mg PO DAILY 04/13/21 Tamsulosin [Flomax] 0.4 mg PO DAILY 04/13/21 Objective - Vital Signs/Intake & Output Reviewed Vital Signs: Yes Vital Signs: Vital Signs x48h Temp Pulse Resp BP Pulse Ox 04/27/21 07:48 37 C 73 16 131/58 H 98 Intake & Output: Intake & Output 04/24/21 04/25/21 04/26/21 04/27/21 23:59 23:59 23:59 23:59 Intake Total 2447.917 4132.917 3963.333 1629.167 Output Total 2350 3200 3175 400 Balance 97.917 932.917 605.175 8594.167 - Objective General Appearance: positive: No acute distress, Alert, Other (Thin, elderly male. He is 5 foot 8 inches tall and weighs 68 kg. Balding. Bilateral temporal wasting.) Eyes Bilateral: positive: PERRL, EOMI ENT: positive: No signs of dehydration Neck: positive: No JVD. negative: Stiff neck Respiratory: positive: No respiratory distress. negative: Wheezes, Rales, Rhonchi Cardiovascular: positive: Regular rate & rhythm, Systolic murmur. negative: Gallop/S4, Friction rub Abdomen: positive: Non-tender, No organomegaly, Nml bowel sounds, No distention Skin: positive: Warm, Dry Extremities: positive: Full ROM, No pedal edema. negative: Nml appearance (Diffuse muscle wasting especially in arms and legs) Neurologic/Psychiatric: positive: CN's nml (2-12), Disoriented to place, Disoriented to time. negative: Motor nml (Ataxic, diffusely deconditioned.) - Lab Results Fish Bones: 04/27/21 04:55 04/27/21 04:55 Other Labs: Lab Results x24hrs 04/27/21 04/27/21 Range/Units 04:55 04:55 WBC 7.0 (4.8-10.8) x10^3/uL RBC 3.12 L (4.70-6.10) 10^6/uL Hgb 9.2 L (14.0-18.0) g/dL Hct 28.6 L (42.0-52.0) % MCV 91.7 (80.0-94.0) fL MCH 29.5 (27.0-31.0) pg MCHC 32.2 (32.0-36.0) g/dL RDW 13.1 (12.0-15.0) % Plt Count 291 (130-450) 10^3/uL MPV 9.1 (7.4-11.4) fL Neut # (Auto) 4.5 (1.5-6.6) 10^3/uL Lymph # (Auto) 1.7 (1.5-3.5) 10^3/uL [place] # (Auto) 0.6 (0.0-1.0) 10^3/uL Eos # (Auto) 0.2 (0.0-0.7) 10^3/uL Baso # (Auto) 0.0 (0.0-0.1) 10^3/uL Absolute Nucleated RBC 0.00 x10^3/uL Nucleated RBC % 0.0 /100WBC Sodium 139 (135-145) mmol/L Potassium 3.3 L (3.5-5.0) mmol/L Chloride 110 (101-111) mmol/L Carbon Dioxide 22 (21-32) mmol/L Anion Gap 7.0 (6-13) BUN 13 (6-20) mg/dL Creatinine 0.9 (0.6-1.2) mg/dL Estimated GFR (MDRD) 81 L (>89) Glucose 105 H (70-100) mg/dL Calcium 7.9 L (8.5-10.3) mg/dL ABX Reporting Has patient been on IV antibiotics over the past 48 hours?: Yes Assessment/Plan - Problem List (1) UTI (urinary tract infection) Impression: This is a gentleman who has an enlarged prostate. Has had urinary retention while he is here requiring multiple straight caths. He would get very agitated with urgency, need to urinate and unable to. We finally ended up putting in a Rodriguez with immediate relief of his agitation. Unfortunately in his confusion, 1 night, he pulled the Rodriguez out. Within 24 to 48 hours he developed delirium, leukocytosis, and a negative urine culture but we assume a UTI. He has clots of blood when we tried to straight cath 04/25 The leukocytosis of 39K has resolved with antibiotic therapy. Normal WBC starting 04/26. But he continues to have urgency and frequency requiring frequent straight cath. 04/25 nursing could not put in a straight cath because of blood clots, and unable to advance catheter so nursing staff reached out to me to ask if there is someone else we can asked to put in the Rodrgiuez. I did call the emergency room. The health community assistant there was trying to find a nurse that could help us. But in the meantime, the patient asked if he could do this. In spite of his delirium he does have moments of lucidity. He has straight caths himself before. As such we gave him the catheter after preparing him for sterile technique and he was able to drain his bladder on his own using the straight cath. Day #6 ciprofloxacin. Since there is trauma, possible prostatitis or prostate trauma, I am leaning closer to 14 days of therapy. We will continue to monitor clinically. Qualifiers: Urinary tract infection type: acute cystitis (2) Delirium improving/resolved Impression: 04/21: with the leukocytosis he also began having visual hallucinations. I suspect is related to delirium and sundowning and worsened by a UTI. He was redirectable and was oriented to self and location. His MRI from April 17 did suggest there may be some restricted diffusion involving the temporal, stable, posterior lobes and the differential was quite broad. That change we believe was due to the prolonged and severe seizure he had. 04/22: Hallucinations present but redirectable and not needing haldol or restraints 04/23: in the pediatric geneticist around 5:30 am, hallucinations continued and then he suddenly was afraid of the nurse and began kicking, pulling out his IV, flaili ng his arms. We initiated violent restraints. Haldol and Zyprexa used as one time doses. By 7 pm could be transitioned to nonviolent restraints. 04/24: Continued on on nonviolent, upper/lower limb soft restraints. He still wants to keep on getting out of bed. Keeps on wanting to pull at the IV. We have a one-to-one sitter with him. He is not redirectable. Not oriented. Ativan 1 mg since 04/18 is used prn. 04/25: Ativan used 5 times in 24 hours. By 7 pm restraints reduced to 2 extremity from 4 extremity. He was able to self cath himself. Still impulsive and wants to go home and wants to get out of bed. No longer needing 1:1. 04/26: back to 1:1 but off all restraints. Last ativan was 11:53 am on 04/26. and daughter able to visit him and he was alert, oriented to place and person. More cooperative but doesn't want to be in bed. Sat on sofa or chair in room and walked in room. Really wants to go home and is upset his family didn't take him home. 04/27: alert, cooperative but not happy to be here. Plan: White cell count is normal, no fever, and anticipate that he will gradually recover. His lets us know that it took him 3 months to recover from the last time he had a seizure in May 2020. (3) Seizure as late effect of cerebrovascular accident (CVA). This was the reason he was admitted. Impression: He has had no further seizures since his hospitalization. We will continue the increased dose of Keppra. Keppra lab order done and lab has recieved the specimen. Wanting to make sure this is not contributing to problem #2. Will review results once they are in [employer]. Still not available as of this morning. 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 Impression: He had an acute worsening when he was admitted but that has resolved. He is mo ving all 4 extremities although he does have left-sided neglect. MRI showed no evidence of infarct. 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 Prior to admission, even though he had slight left body weakness, he was ambulating independently. Feeding himself, dressing himself. Our goal is to get him back to that once he can cooperate with physical therapy. He may need temporary rehab at SNF to get to that goal and then return to home with . Physical therapy has been working with him but delirium was difficult to work thru. They will seen him again today. Plan is for SNF by 04/29 if they will accept him. (6) Afib, chronic Impression: He has known history of atrial relation. he was on carvedilol and Eliquis. Eliquis was held given concern for acute infarct. Given it appeared he did not have a stroke, Eliquis was resumed but was held once again as we thought he would need a lumbar puncture for encephalitis. But since his WBC is going down, no fever, no new seizures, will need to resume it for risk of embolic stroke. Since he was so combative, a danger to himself, having clots in the urethra, that I bridged w Lovenox until he could not hurt himself, or fall. Resume eliquis now that restraints removed. (7) History of CHF with preserved EF. Impression: He has a history of heart failure with reduced ejection fraction but now his EF is preserved. We will continue carvedilol and lisinopril. (8) BPH (benign prostatic hyperplasia) with LUTS Impression: Continue finasteride and Flomax. Thankfully he was able to self cath yesterday, and we will continue to monitor. (9) Hypokalemia supplement po.
[2021-04-27] MEDS: DOCUSATE SODIUM 250 MG CAPSULE PO SCH (08:13)
[2021-04-27] MEDS: levETIRAcetam 250 MG TABLET PO SCH ×2 (08:13→20:17)
[2021-04-27] MEDS: TAMSULOSIN 0.4 MG CAPSULE PO SCH (08:13)
[2021-04-27] MEDS: FINASTERIDE 5 MG TABLET PO SCH ×2 (08:13→20:17)
[2021-04-27] MEDS: ENOXAPARIN 60 MG/0.6 ML SYRINGE SUBQ SCH (08:14)
[2021-04-27] MEDS: lisinopriL 20 MG TABLET PO SCH (08:16)
[2021-04-27] MEDS: SENNA 8.6 MG TABLET PO SCH (08:17)
[2021-04-27] MEDS: polyethylene glycoL 3350 17 GM PACKET PO SCH (08:17)
[2021-04-27] MEDS: carvediloL 3.125 MG TABLET PO SCH ×2 (09:00→20:17)
[2021-04-27] MEDS ORDERED: APIXABAN 5 MG TABLET PO SCH (11:00)
[2021-04-27] MEDS: ATORVASTATIN 40 MG TABLET PO SCH (20:17)
[2021-04-27] MEDS: APIXABAN 5 MG TABLET PO SCH (20:17)
[2021-04-28] MEDS: SODIUM CHLORIDE FLUSH 0.9% 10 ML SYRINGE IVP SCH ×3 (01:57→17:44)
[2021-04-28] MEDS: CIPROFLOXACIN 400 MG/200 ML 400 MG/200 ML BAG IV SCH ×2 (02:23→14:23)
[2021-04-28 05:32] LABS: BASOPHILS # (AUTO) 0.1 10^3/uL (0.0-0.1); BASOPHILS % (AUTO) 0.7 %; EOSINOPHILS # (AUTO) 0.2 10^3/uL (0.0-0.7); EOSINOPHILS % (AUTO) 2.4 %; HCT - HEMATOCRIT 28.2 % (42.0-52.0); HGB - HEMOGLOBIN 9.2 g/dL (14.0-18.0); LYMPHOCYTES # (AUTO) 1.7 10^3/uL (1.5-3.5); LYMPHOCYTES % (AUTO) 20.3 %; MEAN CORPUSCULAR HEMOGLOBIN 29.6 pg (27.0-31.0); MEAN CORPUSCULAR HGB CONC 32.6 g/dL (32.0-36.0); MEAN CORPUSCULAR VOLUME 90.7 fL (80.0-94.0); MEAN PLATELET VOLUME 9.3 fL (7.4-11.4); MONOCYTES # (AUTO) 0.6 10^3/uL (0.0-1.0); MONOCYTES % (AUTO) 7.1 %; NEUTROPHILS # (AUTO) 5.6 10^3/uL (1.5-6.6); NEUTROPHILS % (AUTO) 68.8 %; PLT - PLATELET COUNT 288 10^3/uL (130-450); RED BLOOD COUNT 3.11 10^6/uL (4.70-6.10); RED CELL DISTRIBUTION WIDTH 13.2 % (12.0-15.0); WHITE BLOOD COUNT 8.2 x10^3/uL (4.8-10.8)
[2021-04-28 05:39] LABS: CREATININE 0.9 mg/dL (0.6-1.2); POTASSIUM 3.5 mmol/L (3.5-5.0)
--- NOTE | 2021-04-28 07:58 | PROVIDER PROGRESS NOTE ---
Subjective - Prog Note Date Prog Note Date: 04/28/21 Prog Note Time: 07:56 - Subjective Pt reports feeling: Improved Subjective: I saw him this morning at around 7:30. He was up in bed. Getting ready to eat breakfast. Again restating his desires to get out of here and to go home. Very annoyed at the idea that he was can have to go to a nursing home facility for rehab. He is able to get up to go to the bathroom and gets annoyed with the standby assist. He has not needed benzodiazepine since April 26. He has not needed a one-to-one since yesterday. His delirium had resolved. Unfortunately at about 10:15 this morning he had gotten up to go to the bathroom and while in the bathroom, began having sudden involuntary left arm twitching. Involuntary twitching of his left face. 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 The residual became very pronounced. Left facial droop, unable to squeeze with his left hand. Able to follow commands and told me "I feel really weird". This is this person's presentation for seizures. Sometimes his focal seizures can go on to progress to full-blown grand mal seizures such as in 05/2020 and was the reason for this admission. I had ordered a Keppra dose evaluation on April 25. It is still pending. I believe it is a send out lab. Current Medications - Current Medications Current Medications: Active Medications Acetaminophen (Acetaminophen 500 Mg Tablet) 1,000 mg PO Q6H PRN PRN Reason: Pain or Fever > 38C (100.4F) Last Admin: 04/25/21 10:07 Dose: 1,000 mg Documented by: Apixaban (Apixaban 5 Mg Tablet) 5 mg PO BID [facility] Last Admin: 04/27/21 20:17 Dose: 5 mg Documented by: Atorvastatin Calcium (Atorvastatin 40 Mg Tablet) 40 mg PO QPM [facility] Last Admin: 04/27/21 20:17 Dose: 40 mg Documented by: Carvedilol (Carvedilol 3.125 Mg Tablet) 3.125 mg PO BID [facility] Last Admin: 04/27/21 20:17 Dose: 3.125 mg Documented by: Docusate Sodium (Docusate Sodium 250 Mg Capsule) 250 - 500 mg PO DAILY [facility] Last Admin: 04/27/21 08:13 Dose: 250 mg Documented by: Finasteride (Finasteride 5 Mg Tablet) 5 mg PO BID [facility] Last Admin: 04/27/21 20:17 Dose: 5 mg Documented by: Hydromorphone HCl (Hydromorphone 0.5 Mg/0.5 Ml Syringe) 0.5 mg IVP Q2H PRN PRN Reason: PAIN Last Admin: 04/25/21 15:26 Dose: 0.5 mg Documented by: Ciprofloxacin (Cipro 400 Mg/200 Ml) 400 mg in 200 mls @ 200 mls/hr IV Q12H [facility] Last Infusion: 04/28/21 03:23 Dose: Infused Documented by: Sodium Chloride (Normal Saline 0.9%) 1,000 mls @ 125 mls/hr IV .Q8H [facility] Last Admin: 04/27/21 22:31 Dose: 125 mls/hr Documented by: Levetiracetam (Levetiracetam 250 Mg Tablet) 750 mg PO BID [facility] Last Admin: 04/27/21 20:17 Dose: 750 mg Documented by: Lisinopril (Lisinopril 20 Mg Tablet) 20 mg PO DAILY [facility] Last Admin: 04/27/21 08:16 Dose: 20 mg Documented by: Lorazepam (Lorazepam 2 Mg/Ml Vial) 1 mg IVP Q2H PRN PRN Reason: Agitation Last Admin: 04/26/21 11:22 Dose: 1 mg Documented by: Lorazepam (Lorazepam 0.5 Mg Tablet) 1 mg SL Q6H PRN PRN Reason: Anxiety Multivitamins/Minerals (Multivitamin W/Minerals Tablet) 1 tab PO DAILYWM [facility] Last Admin: 04/27/21 07:56 Dose: 1 tab Documented by: Ondansetron HCl (Ondansetron 4 Mg/2 Ml Vial) 4 mg IVP Q6HR PRN PRN Reason: Nausea / Vomiting Last Admin: 04/19/21 18:02 Dose: 4 mg Documented by: Polyethylene Glycol (Polyethylene Glycol 3350 17 Gm Packet) 17 gm PO DAILY [facility] Last Admin: 04/27/21 08:17 Dose: Not Given Documented by: Senna (Senna 8.6 Mg Tablet) 8.6 - 17.2 mg PO DAILY [facility] Last Admin: 04/27/21 08:17 Dose: 8.6 mg Documented by: Sodium Chloride (Sodium Chloride Flush 0.9% 10 Ml Syringe) 10 ml IVP PRN PRN PRN Reason: NEEDED PER PROVIDER ORDERS Last Admin: 04/25/21 17:54 Dose: 10 ml Documented by: Sodium Chloride (Sodium Chloride Flush 0.9% 10 Ml Syringe) 10 ml IVP 0100,0900,1700 [facility] Last Admin: 04/28/21 01:57 Dose: Not Given Documented by: Tamsulosin HCl (Tamsulosin 0.4 Mg Capsule) 0.4 mg PO DAILY [facility] Last Admin: 04/27/21 08:13 Dose: 0.4 mg Documented by: Apixaban [Eliquis] 1 tab PO DAILY 04/13/21 Finasteride [Proscar] 5 mg PO DAILY 04/13/21 Lisinopril [Zestril] 20 mg PO DAILY 04/13/21 Tamsulosin [Flomax] 0.4 mg PO DAILY 04/13/21 Objective - Vital Signs/Intake & Output Reviewed Vital Signs: Yes Vital Signs: Vital Signs x48h Temp Pulse Resp BP Pulse Ox 04/28/21 02:45 36.6 C 75 16 119/48 L 97 Intake & Output: Intake & Output 04/25/21 04/26/21 04/27/21 04/28/21 23:59 23:59 23:59 23:59 Intake Total 4132.917 3963.333 5119.584 200 Output Total 3200 3175 2550 1000 Balance 932.917 518.398 2133.584 -800 - Objective General Appearance: positive: Alert, Mild distress ("I feel weird") Eyes Bilateral: positive: PERRL, EOMI, Other (He cannot close his left eyelid right now. Involuntarily open with involuntary twitching) ENT: positive: Other (Left facial droop very pronounced. Speech is intact. Tongue is midline.) Neck: positive: No JVD. negative: Stiff neck Respiratory: positive: No respiratory distress. negative: Wheezes, Rales, Rhonchi Cardiovascular: positive: Regular rate & rhythm, Systolic murmur. negative: Gallop/S4, Friction rub Abdomen: positive: Non-tender, No organomegaly, Nml bowel sounds, No distention Skin: positive: Warm, Dry Extremities: positive: Full ROM, No pedal edema Neurologic/Psychiatric: positive: Disoriented to time, Facial droop (Left). negative: CN's nml (2-12) (Left facial droop right now.), Motor nml (Pronounced left arm weakness. He says his left shoulder is spasming and it will not stop spasming. Left hand is unable to grasp anything. Left leg is also weak. On top of this he has involuntary twitching of the left side of his body and face.) - Lab Results Fish Bones: 04/28/21 05:22 04/28/21 05:22 Other Labs: Lab Results x24hrs 04/28/21 04/28/21 Range/Units 05:22 05:22 WBC 8.2 (4.8-10.8) x10^3/uL RBC 3.11 L (4.70-6.10) 10^6/uL Hgb 9.2 L (14.0-18.0) g/dL Hct 28.2 L (42.0-52.0) % MCV 90.7 (80.0-94.0) fL MCH 29.6 (27.0-31.0) pg MCHC 32.6 (32.0-36.0) g/dL RDW 13.2 (12.0-15.0) % Plt Count 288 (130-450) 10^3/uL MPV 9.3 (7.4-11.4) fL Neut # (Auto) 5.6 (1.5-6.6) 10^3/uL Lymph # (Auto) 1.7 (1.5-3.5) 10^3/uL [place] # (Auto) 0.6 (0.0-1.0) 10^3/uL Eos # (Auto) 0.2 (0.0-0.7) 10^3/uL Baso # (Auto) 0.1 (0.0-0.1) 10^3/uL Absolute Nucleated RBC 0.00 x10^3/uL Nucleated RBC % 0.0 /100WBC Sodium 140 (135-145) mmol/L Potassium 3.5 (3.5-5.0) mmol/L Chloride 109 (101-111) mmol/L Carbon Dioxide 22 (21-32) mmol/L Anion Gap 9.0 (6-13) BUN 11 (6-20) mg/dL Creatinine 0.9 (0.6-1.2) mg/dL Estimated GFR (MDRD) 81 L (>89) Glucose 97 (70-100) mg/dL Calcium 8.0 L (8.5-10.3) mg/dL ABX Reporting Has patient been on IV antibiotics over the past 48 hours?: Yes Assessment/Plan - Problem List (1) UTI (urinary tract infection) Impression: This is a gentleman who has an enlarged prostate. Has had urinary retention while he is here requiring multiple straight caths. He would get very agitated with urgency, need to urinate and unable to. We finally ended up putting in a Rodriguez with immediate relief of his agitation. Unfortunately in his confusion, 1 night, he pulled the Rodirguez out. Within 24 to 48 hours he developed delirium, leukocytosis, and a negative urine culture but we assume a UTI. He has clots of blood when we tried to straight cath 04/25 The leukocytosis of 39K has resolved with antibiotic therapy. Normal WBC starting 04/26. But he continues to have urgency and frequency requiring frequent straight cath. 11/11 nursing could not put in a straight cath because of blood clots, and unable to advance catheter so nursing staff reached out to me to ask if there is someone else we can asked to put in the Rodriguez. I did call the emergency room. The health community ambassador there was trying to find a nurse that could help us. But in the meantime, the patient asked if he could do this. In spite of his delirium he does have moments of lucidity. He has straight caths himself before. As such we gave him the catheter after preparing him for sterile technique and he was able to drain his bladder on his own using the straight cath. Day #7 ciprofloxacin. Since there is trauma, possible prostatitis or prostate trauma, I am leaning closer to 14 days of therapy. We will continue to monitor clinically. Qualifiers: Urinary tract infection type: acute cystitis (2) Delirium improving/resolved Impression: 04/21: with the leukocytosis he also began having visual hallucinations. I suspect is related to delirium and sundowning and worsened by a UTI. He was redirectable and was oriented to self and location. His MRI from April 17 did suggest there may be some restricted diffusion involving the temporal, stabl e, posterior lobes and the differential was quite broad. That change we believe was due to the prolonged and severe seizure he had. 04/22: Hallucinations present but redirectable and not needing haldol or restraints 04/23: in the utilization engineer around 5:30 am, hallucinations continued and then he suddenly was afraid of the nurse and began kicking, pulling out his IV, flailing his arms. We initiated violent restraints. Haldol and Zyprexa used as one time doses. By 7 pm could be transitioned to nonviolent restraints. 04/24: Continued on on nonviolent, upper/lower limb soft restraints. He still wants to keep on getting out of bed. Keeps on wanting to pull at the IV. We have a one-to-one sitter with him. He is not redirectable. Not oriented. Ativan 1 mg since 04/18 is used prn. 04/25: Ativan used 5 times in 24 hours. By 7 pm restraints reduced to 2 extremity from 4 extremity. He was able to self cath himself. Still impulsive and wants to go home and wants to get out of bed. No longer needing 1:1. 04/26: back to 1:1 but off all restraints. Last ativan was 11:53 am on 04/26. and daughter able to visit him and he was alert, oriented to place and p erson. More cooperative but doesn't want to be in bed. Sat on sofa or chair in room and walked in room. Really wants to go home and is upset his family didn't take him home. 04/27: alert, cooperative but not happy to be here. 1:1 stopped by afternoon since he kept on wanting to walk without assistance. No ativan. 04/28: No restraints and no 1:1. Ativan 2 mg given for focal seizure breakthrough NOT for behavioral issue Plan: White cell count is normal, no fever, and anticipate that he will gradually recover. His lets us know that it took him 3 months to recover from the last time he had a seizure in May 2020. (3) Seizure as late effect of cerebrovascular accident (CVA). This was the reason he was admitted. Impression: He is having another episode right now. I don't think it's another stroke. Will press lab for keppra level. Will speak to Neurology on how to better control this. We will continue the increased dose of Keppra. 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 Impression: He had an acute worsening when he was admitted but that had resolved. He now has it again and he has another focal seizure. I am hoping to avoid devolution to a grand mal seizure as he had on admisison. Back to a predominant left body plegia (UE>LE), left face droop, involuntary twitching. On admission, MRI showed no evidence of infarct. Just diffuse global changes. 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 Prior to admission, even though he had slight left body weakness, he was ambulating independently. Feeding himself, dressing himself. Our goal is to get him back to that once he can cooperate with physical therapy. He may need temporary rehab at SNF to get to that goal and then return to home with . I am hoping today is not a set back. Physical therapy has been working with him but delirium was difficult to work thru. They will seen him again today. Plan is for SNF by 04/29 if they will accept him. (6) Afib, chronic Impression: He has known history of atrial relation. he was on carvedilol and Eliquis. Eliquis was held given concern for acute infarct. Given it appeared he did not have a stroke, Eliquis was resumed but was held once again as we thought he would need a lumbar puncture for encephalitis. But since his WBC is going down, no fever, no new seizures, will need to resume it for risk of embolic stroke. Since he was so combative, a danger to himself, having clots in the urethra, that I bridged w Lovenox until he could not hurt himself, or fall. Resumed eliquis 04/27 pnce restraints removed. (7) History of CHF with preserved EF. Impression: He has a history of heart failure with reduced ejection fraction but now his EF is preserved. We will continue carvedilol and lisinopril. (8) BPH (benign prostatic hyperplasia) with LUTS Impression: Continue finasteride and Flomax. Thankfully he was able to self cath yesterday, and we will continue to monitor. (9) Hypokalemia supplement po.
[2021-04-28] MEDS: levETIRAcetam 250 MG TABLET PO SCH ×2 (08:30→20:29)
[2021-04-28] MEDS: DOCUSATE SODIUM 250 MG CAPSULE PO SCH (08:30)
[2021-04-28] MEDS: MULTIVITAMIN W/MINERALS TABLET PO SCH (08:30)
[2021-04-28] MEDS: SODIUM CHLORIDE 0.9% 1,000 ML IV SCH ×2 (08:30→17:44)
[2021-04-28] MEDS: TAMSULOSIN 0.4 MG CAPSULE PO SCH (08:31)
[2021-04-28] MEDS: APIXABAN 5 MG TABLET PO SCH ×2 (08:31→20:30)
[2021-04-28] MEDS: polyethylene glycoL 3350 17 GM PACKET PO SCH (08:31)
[2021-04-28] MEDS: SENNA 8.6 MG TABLET PO SCH (08:31)
[2021-04-28] MEDS: carvediloL 3.125 MG TABLET PO SCH ×2 (08:32→20:30)
[2021-04-28] MEDS: FINASTERIDE 5 MG TABLET PO SCH ×2 (08:32→20:30)
[2021-04-28] MEDS: lisinopriL 20 MG TABLET PO SCH (08:40)
[2021-04-28] MEDS ORDERED: LORazepam 2 MG/ML VIAL IVP STA (10:21)
[2021-04-28] MEDS: ACETAMINOPHEN 500 MG TABLET PO PRN (14:22)
[2021-04-28] MEDS: HYDROmorphone 0.5 MG/0.5 ML SYRINGE IVP PRN (17:33)
[2021-04-28] MEDS: ATORVASTATIN 40 MG TABLET PO SCH (20:29)
[2021-04-29] MEDS: SODIUM CHLORIDE FLUSH 0.9% 10 ML SYRINGE IVP SCH ×3 (00:22→18:01)
[2021-04-29] MEDS ORDERED: LORazepam 2 MG/ML VIAL IVP STA ×3 (00:59→19:59)
[2021-04-29] MEDS: SODIUM CHLORIDE 0.9% 1,000 ML IV SCH ×3 (01:22→17:59)
[2021-04-29] MEDS: CIPROFLOXACIN 400 MG/200 ML 400 MG/200 ML BAG IV SCH (02:49)
[2021-04-29 05:39] LABS: BASOPHILS # (AUTO) 0.1 10^3/uL (0.0-0.1); BASOPHILS % (AUTO) 0.8 %; EOSINOPHILS # (AUTO) 0.2 10^3/uL (0.0-0.7); HCT - HEMATOCRIT 30.5 % (42.0-52.0); HGB - HEMOGLOBIN 10.3 g/dL (14.0-18.0); LYMPHOCYTES # (AUTO) 1.7 10^3/uL (1.5-3.5); LYMPHOCYTES % (AUTO) 16.2 %; MEAN CORPUSCULAR HEMOGLOBIN 30.3 pg (27.0-31.0); MEAN CORPUSCULAR HGB CONC 33.8 g/dL (32.0-36.0); MEAN CORPUSCULAR VOLUME 89.7 fL (80.0-94.0); MEAN PLATELET VOLUME 9.4 fL (7.4-11.4); MONOCYTES # (AUTO) 0.6 10^3/uL (0.0-1.0); MONOCYTES % (AUTO) 5.5 %; NEUTROPHILS # (AUTO) 7.9 10^3/uL (1.5-6.6); NEUTROPHILS % (AUTO) 74.8 %; PLT - PLATELET COUNT 321 10^3/uL (130-450); WHITE BLOOD COUNT 10.6 x10^3/uL (4.8-10.8)
[2021-04-29 05:49] LABS: CALCIUM 8.3 mg/dL (8.5-10.3); POTASSIUM 3.4 mmol/L (3.5-5.0)
[2021-04-29] MEDS: SENNA 8.6 MG TABLET PO SCH (09:14)
[2021-04-29] MEDS: FINASTERIDE 5 MG TABLET PO SCH ×2 (09:14→20:46)
[2021-04-29] MEDS: levETIRAcetam 250 MG TABLET PO SCH ×2 (09:14→20:46)
[2021-04-29] MEDS: APIXABAN 5 MG TABLET PO SCH ×2 (09:14→20:43)
[2021-04-29] MEDS: polyethylene glycoL 3350 17 GM PACKET PO SCH (09:14)
[2021-04-29] MEDS: carvediloL 3.125 MG TABLET PO SCH ×2 (09:14→20:46)
[2021-04-29] MEDS: TAMSULOSIN 0.4 MG CAPSULE PO SCH (09:14)
[2021-04-29] MEDS: lisinopriL 20 MG TABLET PO SCH (09:14)
[2021-04-29] MEDS: DOCUSATE SODIUM 250 MG CAPSULE PO SCH (09:15)
[2021-04-29] MEDS: MULTIVITAMIN W/MINERALS TABLET PO SCH (09:22)
[2021-04-29] MEDS: ACETAMINOPHEN 500 MG TABLET PO PRN (11:09)
--- NOTE | 2021-04-29 18:37 | PROVIDER PROGRESS NOTE ---
Subjective - Prog Note Date Prog Note Date: 04/29/21 Prog Note Time: 18:37 - Subjective Subjective: Unfortunately, he had another episode of left arm tingling around 1 in the morning. The pronounced left facial droop returned with the twitching. Got Ati van 2 mg and he improved. Then at 6 AM this morning he did it again. Through the course of the day he has had intermittent left arm twitching, and a left facial droop that comes and goes. He is still able to communicate with us and tell us that he just does not feel well. There is no behavioral issue. No delirium. Last night his dose of cipro resulted in itching and no rash. So no cipro given this morning. I called his neurologist at [facility] epilepsy clinic. He was not available, and as such I left a message for the on-call provider to call me. There is no return phone call by 630 so I called again. Dr. Lal is administration intern at [phone]. Current Medications - Current Medications Current Medications: Active Medications Acetaminophen (Acetaminophen 500 Mg Tablet) 1,000 mg PO Q6H PRN PRN Reason: Pain or Fever > 38C (100.4F) Last Admin: 04/29/21 11:09 Dose: 1,000 mg Documented by: Apixaban (Apixaban 5 Mg Tablet) 5 mg PO BID [facility] Last Admin: 04/29/21 09:14 Dose: 5 mg Documented by: Atorvastatin Calcium (Atorvastatin 40 Mg Tablet) 40 mg PO QPM [facility] Last Admin: 04/28/21 20:29 Dose: 40 mg Documented by: Carvedilol (Carvedilol 3.125 Mg Tablet) 3.125 mg PO BID [facility] Last Admin: 04/29/21 09:14 Dose: 3.125 mg Documented by: Docusate Sodium (Docusate Sodium 250 Mg Capsule) 250 - 500 mg PO DAILY [facility] Last Admin: 04/29/21 09:15 Dose: Not Given Documented by: Finasteride (Finasteride 5 Mg Tablet) 5 mg PO BID [facility] Last Admin: 04/29/21 09:14 Dose: 5 mg Documented by: Hydromorphone HCl (Hydromorphone 0.5 Mg/0.5 Ml Syringe) 0.5 mg IVP Q2H PRN PRN Reason: PAIN Last Admin: 04/28/21 17:33 Dose: 0.5 mg Documented by: Sodium Chloride (Normal Saline 0.9%) 1,000 mls @ 125 mls/hr IV .Q8H [facility] Last Admin: 04/29/21 17:59 Dose: 125 mls/hr Documented by: Levetiracetam (Levetiracetam 250 Mg Tablet) 1,000 mg PO BID [facility] Lisinopril (Lisinopril 20 Mg Tablet) 20 mg PO DAILY [facility] Last Admin: 04/29/21 09:14 Dose: 20 mg Documented by: Lorazepam (Lorazepam 2 Mg/Ml Vial) 1 mg IVP Q2H PRN PRN Reason: Agitation Last Admin: 04/26/21 11:22 Dose: 1 mg Documented by: Lorazepam (Lorazepam 0.5 Mg Tablet) 1 mg SL Q6H PRN PRN Reason: Anxiety Multivitamins/Minerals (Multivitamin W/Minerals Tablet) 1 tab PO DAILYWM [facility] Last Admin: 04/29/21 09:22 Dose: Not Given Documented by: Ondansetron HCl (Ondansetron 4 Mg/2 Ml Vial) 4 mg IVP Q6HR PRN PRN Reason: Nausea / Vomiting Last Admin: 04/19/21 18:02 Dose: 4 mg Documented by: Polyethylene Glycol (Polyethylene Glycol 3350 17 Gm Packet) 17 gm PO DAILY [facility] Last Admin: 04/29/21 09:14 Dose: 17 gm Documented by: Senna (Senna 8.6 Mg Tablet) 8.6 - 17.2 mg PO DAILY [facility] Last Admin: 04/29/21 09:14 Dose: 8.6 mg Documented by: Sodium Chloride (Sodium Chloride Flush 0.9% 10 Ml Syringe) 10 ml IVP PRN PRN PRN Reason: NEEDED PER PROVIDER ORDERS Last Admin: 04/25/21 17:54 Dose: 10 ml Documented by: Sodium Chloride (Sodium Chloride Flush 0.9% 10 Ml Syringe) 10 ml IVP 0100,0900,1700 [facility] Last Admin: 04/29/21 18:01 Dose: Not Given Documented by: Tamsulosin HCl (Tamsulosin 0.4 Mg Capsule) 0.4 mg PO DAILY [facility] Last Admin: 04/29/21 09:14 Dose: 0.4 mg Documented by: Apixaban [Eliquis] 1 tab PO DAILY 04/13/21 Finasteride [Proscar] 5 mg PO DAILY 04/13/21 Lisinopril [Zestril] 20 mg PO DAILY 04/13/21 Tamsulosin [Flomax] 0.4 mg PO DAILY 04/13/21 Objective - Vital Signs/Intake & Output Reviewed Vital Signs: Yes Vital Signs: Vital Signs x48h Temp Pulse Resp BP BP Pulse Ox 04/29/21 15:53 36.4 C L 80 16 131/62 H 95 04/29/21 14:46 36.5 C 76 16 121/64 96 04/29/21 14:30 36.5 C 79 18 121/64 97 04/29/21 11:00 36.7 C 88 18 137/73 H 96 Intake & Output: Intake & Output 04/26/21 04/27/21 04/28/21 04/29/21 23:59 23:59 23:59 23:59 Intake Total 3963.333 5119.584 3718.75 2910.583 Output Total 3175 2550 2475 4175 Balance 455.969 6745.584 1243.75 -1264.417 - Objective General Appearance: positive: No acute distress, Alert Eyes Bilateral: positive: PERRL, EOMI ENT: positive: No signs of dehydration, Other (Slight left facial droop. Much less pronounced than it was yesterday when I examined him.) Neck: positive: No JVD. negative: Stiff neck Respiratory: positive: No respiratory distress. negative: Wheezes, Rales, Rhonchi Cardiovascular: positive: Regular rate & rhythm. negative: Gallop/S4, Friction rub Abdomen: positive: Non-tender, No organomegaly, Nml bowel sounds, No distention Skin: positive: Warm, Dry Extremities: positive: Full ROM, No pedal edema Neurologic/Psychiatric: positive: Oriented x3, Disoriented to place (at times.), Facial droop, Depressed mood/affect. negative: CN's nml (2-12) (slight left facial droop), Motor nml (left arm weaker than left leg but both weaker than right arm/leg) - Lab Results Fish Bones: 04/29/21 05:15 04/29/21 05:15 Other Labs: Lab Results x24hrs 04/29/21 04/29/2104/25/21 Range/Units 05:15 05:15 12:24 WBC 10.6 (4.8-10.8) x10^3/uL RBC 3.40 L (4.70-6.10) 10^6/uL Hgb 10.3 L (14.0-18.0) g/dL Hct 30.5 L (42.0-52.0) % MCV 89.7 (80.0-94.0) fL MCH 30.3 (27.0-31.0) pg MCHC 33.8 (32.0-36.0) g/dL RDW 13.0 (12.0-15.0) % Plt Count 321 (130-450) 10^3/uL MPV 9.4 (7.4-11.4) fL Neut # (Auto) 7.9 H (1.5-6.6) 10^3/uL Lymph # (Auto) 1.7 (1.5-3.5) 10^3/uL [place] # (Auto) 0.6 (0.0-1.0) 10^3/uL Eos # (Auto) 0.2 (0.0-0.7) 10^3/uL Baso # (Auto) 0.1 (0.0-0.1) 10^3/uL Absolute Nucleated RBC 0.00 x10^3/uL Nucleated RBC % 0.0 /100WBC Sodium 136 (135-145) mmol/L Potassium 3.4 L (3.5-5.0) mmol/L Chloride 107 (101-111) mmol/L Carbon Dioxide 22 (21-32) mmol/L Anion Gap 7.0 (6-13) BUN 10 (6-20) mg/dL Creatinine 1.0 (0.6-1.2) mg/dL Estimated GFR (MDRD) 72 L (>89) Glucose 97 (70-100) mg/dL Calcium 8.3 L (8.5-10.3) mg/dL Levetiracetam 28.3 mcg/mL ABX Reporting Has patient been on IV antibiotics over the past 48 hours?: Yes Assessment/Plan - Problem List (1) Seizure as late effect of cerebrovascular accident (CVA) Impression: He initially had focal seizures after his stroke in October 2019. This resulted in a grand mal seizure in May 2020 where he lost quite a bit of function. He then gradually recovered and was back to normal by February 2021. Now this grand mal seizure has set him back again and its very discouraging. He was starting to recover, and yesterday began having what I think are focal seizures with involuntary twitching of his left arm. Weakness of his left leg. And a prominent left facial droop that comes and goes. Keppra level is 28.3. Normal is between 12 and 46. I have increased his Keppra today. I have given him Ativan as needed. I have left a message with his epilepsy clinic physician administration intern service. I have tried again this evening. And I will await a phone call from them to see if they can help me with this unfortunate gentleman. His Neurologist called as I was writing this note. Dr. Mar recommended adding Vimpat 100 mg po bid. (2) UTI (urinary tract infection) Impression: This is a gentleman who has an enlarged prostate. Has had urinary retention while he is here requiring multiple straight caths. He would get very agitated with urgency, need to urinate and unable to. We finally ended up putting in a Rodriguez with immediate relief of his agitation. Unfortunately in his confusion, 1 night, he pulled the Rodriguez out. Within 24 to 48 hours he developed delirium, leukocytosis, and a negative urine culture but we assume a UTI. He has clots of blood when we tried to straight cath 04/25 The leukocytosis of 39K has resolved with antibiotic therapy. Normal WBC starting 04/26. But he continues to have urgency and frequency requiring frequent straight cath. 04/25 nursing could not put in a straight cath because of blood clots, and unable to advance catheter so nursing staff reached out to me to ask if there is someone else we can asked to put in the Rodriguez. I did call the emergency room. The health refinery operator crude unit there was trying to find a nurse that could help us. But in the meantime, the patient asked if he could do this. In spite of his delirium he does have moments of lucidity. He has straight caths himself before. As such we gave him the catheter after preparing him for sterile technique and he was able to drain his bladder on his own using the straight cath. Day #7 ciprofloxacin. Since there is trauma, possible prostatitis or prostate trauma, I am leaning closer to 14 days of therapy. But he developed itching and discomfort with the last dose so I have stopped it. I will continue to monitor for signs of UTI and resume oral meds if need be. Qualifiers: Urinary tract infection type: acute cystitis (2) Delirium improving/resolved Impression: 04/21: with the leukocytosis he also began having visual hallucinations. I suspect is related to delirium and sundowning and worsened by a UTI. He was redirectable and was oriented to self and location. His MRI from April 17 did suggest there may be some restricted diffusion involving the temporal, stable, posterior lobes and the differential was quite broad. That change we believe was due to the prolonged and severe seizure he had. 04/22: Hallucinations present but redirectable and not needing haldol or restraints 04/23: in the apprentice painter hand around 5:30 am, hallucinations continued and then he suddenly was afraid of the nurse and began kicking, pulling out his IV, flailing his arms. We initiated violent restraints. Haldol and Zyprexa used as one time doses. By 7 pm could be transitioned to nonviolent restraints. 04/24: Continued on on nonviolent, upper/lower limb soft restraints. He still wants to keep on getting out of bed. Keeps on wanting to pull at the IV. We have a one-to-one sitter with him. He is not redirectable. Not oriented. Ativan 1 mg since 04/18 is used prn. 04/25: Ativan used 5 times in 24 hours. By 7 pm restraints reduced to 2 extremity from 4 extremity. He was able to self cath himself. Still impulsive and wants to go home and wants to get out of bed. No longer needing 1:1. 04/26: back to 1:1 but off all restraints. Last ativan was 11:53 am on 04/26. and daughter able to visit him and he was alert, oriented to place and person. More cooperative but doesn't want to be in bed. Sat on sofa or chair in room and walked in room. Really wants to go home and is upset his family didn't take him home. 04/27: alert, cooperative but not happy to be here. 1:1 stopped by afternoon since he kept on wanting to walk without assistance. No ativan. 04/28: No restraints and no 1:1. Ativan 2 mg given for focal seizure breakthrough NOT for behavioral issue 04/29: No restraints and does need some 1:1. Ativan continues to be given for seizure NOT behavioral. Plan: White cell count is normal, no fever, and anticipate that he will gradually recover. His lets us know that it took him 3 months to recover from the last time he had a seizure in May 2020. 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 Impression: He had an acute worsening when he was admitted but that had resolved. He now has it again and he has another focal seizure. I am hoping to avoid devolution to a grand mal seizure as he had on admisison. Back to a predominant left body plegia (UE>LE), left face droop, involuntary twitching. On admission, MRI showed no evidence of infarct. Just diffuse global changes. 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 Prior to admission, even though he had slight left body weakness, he was ambulating independently. Feeding himself, dressing himself. Our goal is to get him back to that once he can cooperate with physical therapy. He may need temporary rehab at SNF to get to that goal and then return to home with . I am hoping today is not a set back. Physical therapy has been working with him but delirium was difficult to work thru. I was hoping to dc to SNF today but his seizures are halting the process for today. Once I have his seizures under control, he can go. (5) Afib, chronic Impression: He has known history of atrial relation. he was on carvedilol and Eliquis. Eliquis was held given concern for acute infarct. Given it appeared he did not have a stroke, Eliquis was resumed but was held once again as we thought he would need a lumbar puncture for encephalitis. But since his WBC is going down, no fever, no new seizures, will need to resume it for risk of embolic stroke. Since he was so combative, a danger to himself, having clots in the urethra, that I bridged w Lovenox until he could not hurt himself, or fall. Resumed eliquis 04/27 pnce restraints removed. (6) History of CHF with preserved EF. Impression: He has a history of heart failure with reduced ejection fraction but now his EF is preserved. We will continue carvedilol and lisinopril. (7) BPH (benign prostatic hyperplasia) with LUTS Impression: Continue finasteride and Flomax. Thankfully he was able to self cath 04/26, and we will continue to monitor. (8) Hypokalemia supplement po.
--- NOTE | 2021-04-29 18:55 | PROVIDER PROGRESS NOTE ---
<Lisa Bergeron - Last Filed: 04/29/21 18:39> Subjective - Prog Note Date Prog Note Date: 04/29/21 Prog Note Time: 18:40 - Subjective Pt reports feeling: No change Subjective: He was feeling slightly better this morning and we thought we may be able to transfer him to a SNF however he experienced another focal seizure and still has an unsteady gait once again requiring 1-1 nursing. Objective - Vital Signs/Intake & Output Vital Signs: Vital Signs x48h Temp Pulse Resp BP BP Pulse Ox 04/29/21 15:53 36.4 C L 80 16 131/62 H 95 04/29/21 14:46 36.5 C 76 16 121/64 96 04/29/21 14:30 36.5 C 79 18 121/64 97 04/29/21 11:00 36.7 C 88 18 137/73 H 96 Intake & Output: Intake & Output 04/26/21 04/27/21 04/28/21 04/29/21 23:59 23:59 23:59 23:59 Intake Total 3963.333 5119.584 3718.75 2910.583 Output Total 3175 2550 2475 4175 Balance 723.587 8377.584 1243.75 -1264.417 - Lab Results Fish Bones: 04/29/21 05:15 04/29/21 05:15 Other Labs: Lab Results x24hrs 04/29/21 04/29/21 04/25/21 Range/Units 05:15 05:15 12:24 WBC 10.6 (4.8-10.8) x10^3/uL RBC 3.40 L (4.70-6.10) 10^6/uL Hgb 10.3 L (14.0-18.0) g/dL Hct 30.5 L (42.0-52.0) % MCV 89.7 (80.0-94.0) fL MCH 30.3 (27.0-31.0) pg MCHC 33.8 (32.0-36.0) g/dL RDW 13.0 (12.0-15.0) % Plt Count 321 (130-450) 10^3/uL MPV 9.4 (7.4-11.4) fL Neut # (Auto) 7.9 H (1.5-6.6) 10^3/uL Lymph # (Auto) 1.7 (1.5-3.5) 10^3/uL [place] # (Auto) 0.6 (0.0-1.0) 10^3/uL Eos # (Auto) 0.2 (0.0-0.7) 10^3/uL Baso # (Auto) 0.1 (0.0-0.1) 10^3/uL Absolute Nucleated RBC 0.00 x10^3/uL Nucleated RBC % 0.0 /100WBC Sodium 136 (135-145) mmol/L Potassium 3.4 L (3.5-5.0) mmol/L Chloride 107 (101-111) mmol/L Carbon Dioxide 22 (21-32) mmol/L Anion Gap 7.0 (6-13) BUN 10 (6-20) mg/dL Creatinine 1.0 (0.6-1.2) mg/dL Estimated GFR (MDRD) 72 L (>89) Glucose 97 (70-100) mg/dL Calcium 8.3 L (8.5-10.3) mg/dL Levetiracetam 28.3 mcg/mL <SheltonBianca L - Last Filed: 04/29/21 19:11> Objective - Vital Signs/Intake & Output Vital Signs: Vital Signs x48h Temp Pulse Resp BP Pulse Ox 04/29/21 15:53 36.4 C L 80 16 131/62 H 95 04/29/21 14:46 36.5 C 76 16 121/64 96 04/29/21 14:30 36.5 C 79 18 121/64 97 Intake & Output: Intake & Output 04/26/21 04/27/21 04/28/21 04/29/21 23:59 23:59 23:59 23:59 Intake Total 3963.333 5119.584 3718.75 2910.583 Output Total 3175 2550 2475 4175 Balance 577.017 4584.584 1243.75 -1264.417 - Lab Results Fish Bones: 04/29/21 05:15 04/29/21 05:15 Other Labs: Lab Results x24hrs 11/15/21 11/15/21 11/11/21 Range/Units 05:15 05:15 12:24 WBC 10.6 (4.8-10.8) x10^3/uL RBC 3.40 L (4.70-6.10) 10^6/uL Hgb 10.3 L (14.0-18.0) g/dL Hct 30.5 L (42.0-52.0) % MCV 89.7 (80.0-94.0) fL MCH 30.3 (27.0-31.0) pg MCHC 33.8 (32.0-36.0) g/dL RDW 13.0 (12.0-15.0) % Plt Count 321 (130-450) 10^3/uL MPV 9.4 (7.4-11.4) fL Neut # (Auto) 7.9 H (1.5-6.6) 10^3/uL Lymph # (Auto) 1.7 (1.5-3.5) 10^3/uL [place] # (Auto) 0.6 (0.0-1.0) 10^3/uL Eos # (Auto) 0.2 (0.0-0.7) 10^3/uL Baso # (Auto) 0.1 (0.0-0.1) 10^3/uL Absolute Nucleated RBC 0.00 x10^3/uL Nucleated RBC % 0.0 /100WBC Sodium 136 (135-145) mmol/L Potassium 3.4 L (3.5-5.0) mmol/L Chloride 107 (101-111) mmol/L Carbon Dioxide 22 (21-32) mmol/L Anion Gap 7.0 (6-13) BUN 10 (6-20) mg/dL Creatinine 1.0 (0.6-1.2) mg/dL Estimated GFR (MDRD) 72 L (>89) Glucose 97 (70-100) mg/dL Calcium 8.3 L (8.5-10.3) mg/dL Levetiracetam 28.3 mcg/mL
[2021-04-29] MEDS: SODIUM CHLORIDE FLUSH 0.9% 10 ML SYRINGE IVP PRN (20:13)
[2021-04-29] MEDS: ATORVASTATIN 40 MG TABLET PO SCH (20:43)
[2021-04-29] MEDS ORDERED: VIMPAT 100 MG PO SCH (21:00)
[2021-04-30] MEDS: SODIUM CHLORIDE FLUSH 0.9% 10 ML SYRINGE IVP SCH ×3 (01:02→20:04)
[2021-04-30] MEDS: SODIUM CHLORIDE 0.9% 1,000 ML IV SCH ×3 (01:29→19:41)
[2021-04-30] MEDS ORDERED: LORazepam 2 MG/ML VIAL IVP STA (03:14)
[2021-04-30 05:42] LABS: BASOPHILS # (AUTO) 0.1 10^3/uL (0.0-0.1); BASOPHILS % (AUTO) 0.6 %; EOSINOPHILS # (AUTO) 0.1 10^3/uL (0.0-0.7); EOSINOPHILS % (AUTO) 1.2 %; HCT - HEMATOCRIT 31.6 % (42.0-52.0); HGB - HEMOGLOBIN 10.4 g/dL (14.0-18.0); LYMPHOCYTES # (AUTO) 1.3 10^3/uL (1.5-3.5); LYMPHOCYTES % (AUTO) 11.9 %; MEAN CORPUSCULAR HEMOGLOBIN 29.8 pg (27.0-31.0); MEAN CORPUSCULAR HGB CONC 32.9 g/dL (32.0-36.0); MEAN CORPUSCULAR VOLUME 90.5 fL (80.0-94.0); MEAN PLATELET VOLUME 9.3 fL (7.4-11.4); MONOCYTES # (AUTO) 0.6 10^3/uL (0.0-1.0); MONOCYTES % (AUTO) 5.7 %; NEUTROPHILS # (AUTO) 8.7 10^3/uL (1.5-6.6); PLT - PLATELET COUNT 336 10^3/uL (130-450); RED BLOOD COUNT 3.49 10^6/uL (4.70-6.10); RED CELL DISTRIBUTION WIDTH 13.2 % (12.0-15.0); WHITE BLOOD COUNT 10.8 x10^3/uL (4.8-10.8)
[2021-04-30 05:53] LABS: CALCIUM 8.4 mg/dL (8.5-10.3); POTASSIUM 3.6 mmol/L (3.5-5.0)
--- NOTE | 2021-04-30 07:52 | PROVIDER PROGRESS NOTE ---
Assessment/Plan - Problem List (1) Seizure as late effect of cerebrovascular accident (CVA) Assessment/Plan: Neurologist at [facility] epilepsy clinic was contacted yesterday. Dr. Lal recommended increasing patient's Keppra to 1000 mg twice daily. This was done. Vimpat 100 mg p.o. twice daily was also ordered. The patient has been on Vimpat previously but had to discontinue it due to the cost. The patient's was unable to fill this due to cost. Lorazepam 1 mg IV push every 2 hours as needed for twitches or seizure. (2) Afib Assessment/Plan: Eliquis 5 mg p.o. twice daily Coreg 3.125 mg p.o. twice daily (3) BPH (benign prostatic hyperplasia) Assessment/Plan: Tamsulosin 0.4 mg p.o. daily. The patient had a UTI for which he was treated with Cipro and completed antibiotics. (4) Delirium Assessment/Plan: 04/21: with the leukocytosis he also began having visual hallucinations. I suspect is related to delirium and sundowning and worsened by a UTI. He was redirectable and was oriented to self and location. His MRI from April 17 did suggest there may be some restricted diffusion involving the temporal, stable, posterior lobes and the differential was quite broad. That change we believe was due to the prolonged and severe seizure he had. 04/22: Hallucinations present but redirectable and not needing haldol or restraints 04/23: in the farm facility manager around 5:30 am, hallucinations continued and then he suddenly was afraid of the nurse and began kicking, pulling out his IV, flailing his arms. We initiated violent restraints. Haldol and Zyprexa used as one time doses. By 7 pm could be transitioned to nonviolent restraints. 04/24: Continued on on nonviolent, upper/lower limb soft restraints. He still wants to keep on getting out of bed. Keeps on wanting to pull at the IV. We have a one-to-one sitter with him. He is not redirectable. Not oriented. At zay 1 mg since 04/18 is used prn. 04/25: Ativan used 5 times in 24 hours. By 7 pm restraints reduced to 2 extremity from 4 extremity. He was able to self cath himself. Still impulsive and wants to go home and wants to get out of bed. No longer needing 1:1. 04/26: back to 1:1 but off all restraints. Last ativan was 11:53 am on 04/26. and daughter able to visit him and he was alert, oriented to place and person. More cooperative but doesn't want to be in bed. Sat on sofa or chair in room and walked in room. Really wants to go home and is upset his family didn't take him home. 04/27: alert, cooperative but not happy to be here. 1:1 stopped by afternoon since he kept on wanting to walk without assistance. No ativan. 04/28: No restraints and no 1:1. Ativan 2 mg given for focal seizure breakthrough NOT for behavioral issue 04/29: No restraints and does need some 1:1. Ativan continues to be given for seizure NOT behavioral. 04/30: Continues to not need restraints but requires some one-to-one. Plan: White cell count is normal, no fever, and anticipate that he will gradually rec over. His lets us know that it took him 3 months to recover from the last time he had a seizure in May 2020. - Current Meds Current Meds: Current Medications Generic Name Dose Route Start Last Admin Trade Name Aishwarya PRN Reason Stop Dose Admin Acetaminophen 1,000 mg 04/16/21 15:44 04/29/21 11:09 Acetaminophen 500 Mg Tablet PO 1,000 mg Q6H PRN Administration Pain or Fever > 38C (100.4F) Apixaban 5 mg 04/27/21 21:00 04/29/21 20:43 Apixaban 5 Mg Tablet PO 5 mg BID PHAN Administration Atorvastatin Calcium 40 mg 04/19/21 21:00 04/29/21 20:43 Atorvastatin 40 Mg Tablet PO 40 mg QPM PHAN Administration Carvedilol 3.125 mg 04/19/21 12:00 04/29/21 20:46 Carvedilol 3.125 Mg Tablet PO 3.125 mg BID PHAN Administration Docusate Sodium 250 - 500 mg 04/16/21 09:00 04/29/21 09:15 Docusate Sodium 250 Mg Capsule PO Not Given DAILY PHAN Finasteride 5 mg 04/17/21 21:00 04/29/21 20:46 Finasteride 5 Mg Tablet PO 5 mg BID PHAN Administration Hydromorphone HCl 0.5 mg 04/25/21 15:10 04/28/21 17:33 Hydromorphone 0.5 Mg/0.5 Ml Syringe IVP 0.5 mg Q2H PRN Administration PAIN Sodium Chloride 1,000 mls @ 125 mls/hr 04/22/21 21:00 04/30/21 01:29 Normal Saline 0.9% IV 125 mls/hr .Q8H PHAN Administration Levetiracetam 1,000 mg 04/29/21 21:00 04/29/21 20:46 Levetiracetam 250 Mg Tablet PO 1,000 mg BID PHAN Administration Lisinopril 20 mg 04/20/21 09:00 04/29/21 09:14 Lisinopril 20 Mg Tablet PO 20 mg DAILY PHAN Administration Lorazepam 1 mg 04/18/21 12:15 04/26/21 11:22 Lorazepam 2 Mg/Ml Vial IVP 1 mg Q2H PRN Administration Agitation Multivitamins/Minerals 1 tab 04/18/21 12:00 04/29/21 09:22 Multivitamin W/Minerals Tablet PO Not Given DAILYWM PHAN Non-Formulary Medication 100 mg 04/29/21 21:00 04/29/21 22:36 Vimpat PO Not Given BID PHAN Ondansetron HCl 4 mg 04/13/21 17:14 04/19/21 18:02 Ondansetron 4 Mg/2 Ml Vial IVP 4 mg Q6HR PRN Administration Nausea / Vomiting Polyethylene Glycol 17 gm 04/16/21 09:00 04/29/21 09:14 Polyethylene Glycol 3350 17 Gm Packet PO 17 gm DAILY PHAN Administration Senna 8.6 - 17.2 mg 04/16/21 09:00 04/29/21 09:14 Senna 8.6 Mg Tablet PO 8.6 mg DAILY PHAN Administration Sodium Chloride 10 ml 04/13/21 17:14 04/29/21 20:13 Sodium Chloride Flush 0.9% 10 Ml Syringe IVP 10 ml PRN PRN Administration NEEDED PER PROVIDER ORDERS Sodium Chloride 10 ml 04/14/21 01:00 04/30/21 01:02 Sodium Chloride Flush 0.9% 10 Ml Syringe IVP Not Given 0100,0900,1700 PHAN Tamsulosin HCl 0.4 mg 04/14/21 09:00 04/29/21 09:14 Tamsulosin 0.4 Mg Capsule PO 0.4 mg DAILY PHAN Administration - Lab Result Fish Bone Diagrams: 05/01/21 05:46 05/01/21 05:46 Subjective - Subjective Patient Reports: Other (Patient was very sleepy/drowsy this morning at time of exam. He has been receiving Ativan for seizure like activity. He appeared to have left-sided weakness at time of exam.) Objective Vital Signs: Vital Signs - 24 hr 04/29/21 04/29/21 04/29/21 08:00 11:00 14:30 Temperature 36.7 C 36.7 C 36.5 C Heart Rate [ 80 88 79 Brachial] Respiratory 18 18 18 Rate Blood Pressure 138/107 H 137/73 H [Left Brachial artery] Blood Pressure 121/64 [Right Brachial artery] O2 Saturation 100 96 97 04/29/21 04/29/21 04/30/21 14:46 15:53 00:00 Temperature 36.5 C 36.4 C L 37.2 C Heart Rate [ 76 80 86 Brachial] Respiratory 16 16 16 Rate Blood Pressure [Left Brachial artery] Blood Pressure 121/64 131/62 H 134/58 H [Right Brachial artery] O2 Saturation 96 95 98 Oxygen O2 Source Room air I&O (Last 24 Hrs): Intake and Output Totals x24h 04/28/21 04/29/21 04/30/21 23:59 23:59 23:59 Intake Total 3718.75 3827.666 380.417 Output Total 2475 5225 2100 Balance 1243.75 -1397.334 -1719.583 General: Other (Drowsy/ sleepy) HEENT: PERRLA, EOMI Neck: Supple, No JVD Neuro: Other (Oriented to self and place. Drowsy/ sleepy) Cardiovascular: Regular rate, Normal S1, Normal S2, No murmurs Respiratory: Chest non-tender, No respiratory distress, Breath sounds nml Abdomen: Normal bowel sounds, Soft Extremities: No clubbing, No cyanosis, No edema, No tenderness/swelling Skin: No rashes, No breakdown, No significant lesion - Results Results: Laboratory Results WBC 10.8 x10^3/uL (4.8-10.8) 04/30/21 05:20 RBC 3.49 10^6/uL (4.70-6.10) L 04/30/21 05:20 Hgb 10.4 g/dL (14.0-18.0) L 04/30/21 05:20 Hct 31.6 % (42.0-52.0) L 04/30/21 05:20 MCV 90.5 fL (80.0-94.0) 04/30/21 05:20 MCH 29.8 pg (27.0-31.0) 04/30/21 05:20 MCHC 32.9 g/dL (32.0-36.0) 04/30/21 05:20 RDW 13.2 % (12.0-15.0) 04/30/21 05:20 Plt Count 336 10^3/uL (130-450) 04/30/21 05:20 MPV 9.3 fL (7.4-11.4) 04/30/21 05:20 Neut # (Auto) 8.7 10^3/uL (1.5-6.6) H 04/30/21 05:20 Lymph # (Auto) 1.3 10^3/uL (1.5-3.5) L 04/30/21 05:20 White # (Auto) 0.6 10^3/uL (0.0-1.0) 04/30/21 05:20 Eos # (Auto) 0.1 10^3/uL (0.0-0.7) 04/30/21 05:20 Baso # (Auto) 0.1 10^3/uL (0.0-0.1) 04/30/21 05:20 Absolute Nucleated RBC 0.00 x10^3/uL 04/30/21 05:20 Total Counted 100 04/22/21 10:26 Band Neuts % (Manual) 1 % (0-10) 04/22/21 10:26 Abnorm Lymph % (Manual) 0 % 04/22/21 10:26 Nucleated RBC % 0.0 /100WBC 04/30/21 05:20 Neutrophils # (Manual) 37.9 10^3/uL (1.5-6.6) H 04/22/21 10:26 Lymphocytes # (Manual) 0.0 10^3/uL (1.5-3.5) L 04/22/21 10:26 Monocytes # (Manual) 0.8 10^3/uL (0.0-1.0) 04/22/21 10:26 Eosinophils # (Manual) 0.0 10^3/uL (0-0.7) 04/22/21 10:26 Basophils # (Manual) 0.0 10^3/uL (0-0.1) 04/22/21 10:26 Differential Comment MANUAL DIFFERENTIAL 04/22/21 10:26 WBC Morphology NORMAL APPEARANCE (NORMAL) 04/22/21 04:40 Platelet Estimate NORMAL (130-450,000) (NORMAL) 04/22/21 10:26 Platelet Morphology NORMAL APPEARANCE (NORMAL) 04/22/21 10:26 RBC Morph Micro Appear NORMAL APPEARANCE (NORMAL) 04/22/21 10:26 Sodium 140 mmol/L (135-145) 04/30/21 05:20 Potassium 3.6 mmol/L (3.5-5.0) 04/30/21 05:20 Chloride 109 mmol/L (101-111) 04/30/21 05:20 Carbon Dioxide 23 mmol/L (21-32) 04/30/21 05:20 Anion Gap 8.0 (6-13) 04/30/21 05:20 BUN 11 mg/dL (6-20) 04/30/21 05:20 Creatinine 1.0 mg/dL (0.6-1.2) 04/30/21 05:20 Estimated GFR (MDRD) 72 (>89) L 04/30/21 05:20 Glucose 108 mg/dL (70-100) H 04/30/21 05:20 Calcium 8.4 mg/dL (8.5-10.3) L 04/30/21 05:20 Magnesium 2.1 mg/dL (1.7-2.8) 04/13/21 13:10 Total Bilirubin 0.8 mg/dL (0.2-1.0) 04/13/21 13:10 AST 14 IU/L (10-42) 04/13/21 13:10 ALT 12 IU/L (10-60) 04/13/21 13:10 Alkaline Phosphatase 92 IU/L (42-121) 04/13/21 13:10 Total Protein 6.4 g/dL (6.7-8.2) L 04/13/21 13:10 Albumin 3.8 g/dL (3.2-5.5) 04/13/21 13:10 Globulin 2.6 g/dL (2.1-4.2) 04/13/21 13:10 Albumin/Globulin Ratio 1.5 (1.0-2.2) 04/13/21 13:10 Urine Color DARK YELLOW 04/22/21 12:01 Urine Clarity HAZY (CLEAR) 04/22/21 12:01 Urine pH 5.0 PH (5.0-7.5) 04/22/21 12:01 Ur Specific [place] >=1.030 (1.002-1.030) H 04/22/21 12:01 Urine Protein 30 mg/dL (NEGATIVE) H 04/22/21 12:01 Urine Glucose (UA) NEGATIVE mg/dL (NEGATIVE) 04/22/21 12:01 Urine Ketones TRACE mg/dL (NEGATIVE) 04/22/21 12:01 Urine Occult Blood LARGE (NEGATIVE) H 04/22/21 12:01 Urine Nitrite POSITIVE (NEGATIVE) H 04/22/21 12:01 Urine Bilirubin SMALL (NEGATIVE) H 04/22/21 12:01 Urine Urobilinogen 1 (NORMAL) E.U./dL (NORMAL) 04/22/21 12:01 Ur Leukocyte Esterase SMALL (NEGATIVE) H 04/22/21 12:01 Urine RBC TNTC /HPF (0-5) H 04/22/21 12:01 Urine WBC >25 /HPF (0-3) H 04/22/21 12:01 Ur Squamous Epith Cells RARE Squamous (<= Few) 04/22/21 12:01 Amorphous Sediment Few /LPF 04/15/21 11:50 Urine Bacteria Moderate /HPF (None Seen) H 04/22/21 12:01 Urine Mucus Moderate Strands 04/22/21 12:01 Urine Culture Comments INDICATED 04/22/21 12:01 Nasal Adenovirus (PCR) NOT DETECTED 04/13/21 16:48 Nasal B. parapertussis DNA (PCR) NOT DETECTED 04/13/21 16:48 Nasal Coronavir 229E PCR NOT DETECTED 04/13/21 16:48 Nasal Coronavir HKU1 PCR NOT DETECTED 04/13/21 16:48 Nasal Coronavir NL63 PCR NOT DETECTED 04/13/21 16:48 Nasal Coronavir OC43 PCR NOT DETECTED 04/13/21 16:48 Nasal Enterovir/Rhinovir PCR NOT DETECTED 04/13/21 16:48 Nasal Influenza B PCR NOT DETECTED 04/13/21 16:48 Nasal Influenza A PCR NOT DETECTED 04/13/21 16:48 Nasal Parainfluen 1 PCR NOT DETECTED 04/13/21 16:48 Nasal Parainfluen 2 PCR NOT DETECTED 04/13/21 16:48 Nasal Parainfluen 3 PCR NOT DETECTED 04/13/21 16:48 Nasal Parainfluen 4 PCR NOT DETECTED 04/13/21 16:48 Nasal RSV (PCR) NOT DETECTED 04/13/21 16:48 Nasal B.pertussis DNA PCR NOT DETECTED 04/13/21 16:48 Nasal C.pneumoniae (PCR) NOT DETECTED 04/13/21 16:48 Mian Human Metapneumo PCR NOT DETECTED 04/13/21 16:48 Nasal M.pneumoniae (PCR) NOT DETECTED 04/13/21 16:48 Nasal SARS-CoV-2 (PCR) NOT DETECTED 04/13/21 16:48 Levetiracetam 28.3 mcg/mL 04/25/21 12:24 Ethyl Alcohol < 5.0 mg/dL 04/13/21 13:10 ABX Reporting Has patient been on IV antibiotics over the past 48 hours?: No
[2021-04-30] MEDS: DOCUSATE SODIUM 250 MG CAPSULE PO SCH (08:26)
[2021-04-30] MEDS: lisinopriL 20 MG TABLET PO SCH (08:26)
[2021-04-30] MEDS: polyethylene glycoL 3350 17 GM PACKET PO SCH (08:26)
[2021-04-30] MEDS: levETIRAcetam 250 MG TABLET PO SCH (08:27)
[2021-04-30] MEDS: MULTIVITAMIN W/MINERALS TABLET PO SCH (08:27)
[2021-04-30] MEDS: carvediloL 3.125 MG TABLET PO SCH ×2 (08:27→20:26)
[2021-04-30] MEDS: APIXABAN 5 MG TABLET PO SCH ×2 (08:27→20:25)
[2021-04-30] MEDS: TAMSULOSIN 0.4 MG CAPSULE PO SCH (08:28)
[2021-04-30] MEDS: FINASTERIDE 5 MG TABLET PO SCH ×3 (08:28→20:26)
[2021-04-30] MEDS: SENNA 8.6 MG TABLET PO SCH (08:28)
[2021-04-30] MEDS: ATORVASTATIN 40 MG TABLET PO SCH ×2 (10:37→20:26)
[2021-04-30] MEDS: levETIRAcetam INJ 1,000 MG in SODIUM CHLORIDE 0.9% 100ML 100 ML IV SCH ×2 (13:23→20:27)
[2021-04-30] MEDS: ACETAMINOPHEN 500 MG TABLET PO PRN ×2 (14:28→22:02)
[2021-04-30] MEDS: LACOSAMIDE 100 MG PO SCH (20:05)
[2021-05-01] MEDS: SODIUM CHLORIDE FLUSH 0.9% 10 ML SYRINGE IVP SCH ×4 (01:21→22:04)
[2021-05-01] MEDS: SODIUM CHLORIDE 0.9% 1,000 ML IV SCH ×3 (03:10→20:38)
[2021-05-01 05:55] LABS: BASOPHILS # (AUTO) 0.1 10^3/uL (0.0-0.1); BASOPHILS % (AUTO) 0.5 %; EOSINOPHILS # (AUTO) 0.1 10^3/uL (0.0-0.7); HCT - HEMATOCRIT 28.3 % (42.0-52.0); HGB - HEMOGLOBIN 9.3 g/dL (14.0-18.0); LYMPHOCYTES # (AUTO) 1.1 10^3/uL (1.5-3.5); LYMPHOCYTES % (AUTO) 10.3 %; MEAN CORPUSCULAR HEMOGLOBIN 29.8 pg (27.0-31.0); MEAN CORPUSCULAR HGB CONC 32.9 g/dL (32.0-36.0); MEAN CORPUSCULAR VOLUME 90.7 fL (80.0-94.0); MONOCYTES # (AUTO) 0.7 10^3/uL (0.0-1.0); MONOCYTES % (AUTO) 6.1 %; NEUTROPHILS # (AUTO) 8.7 10^3/uL (1.5-6.6); NEUTROPHILS % (AUTO) 81.5 %; PLT - PLATELET COUNT 297 10^3/uL (130-450); RED BLOOD COUNT 3.12 10^6/uL (4.70-6.10); RED CELL DISTRIBUTION WIDTH 13.3 % (12.0-15.0); WHITE BLOOD COUNT 10.6 x10^3/uL (4.8-10.8)
[2021-05-01 06:06] LABS: CALCIUM 8.1 mg/dL (8.5-10.3); CREATININE 0.9 mg/dL (0.6-1.2); POTASSIUM 3.5 mmol/L (3.5-5.0)
--- NOTE | 2021-05-01 08:06 | PROVIDER PROGRESS NOTE ---
Assessment/Plan - Problem List (1) Seizure as late effect of cerebrovascular accident (CVA) Assessment/Plan: 05/01/21 I placed a call to his neulogist's Dr Mar and left a messaging Requesting recommendation for a substitute to Vimpat. Awaiting input 04/30/21 Neurologist at [facility] epilepsy clinic was contacted yesterday. Dr. Lal recommended increasing patient's Keppra to 1000 mg twice daily. This was done. Vimpat 100 mg p.o. twice daily was also ordered. The patient has been on Vimpat previously but had to discontinue it due to the cost. The patient's was unable to fill this due to cost. Lorazepam 1 mg IV push every 2 hours as needed for twitches or seizure. (2) Afib Assessment/Plan: Eliquis 5 mg p.o. twice daily Coreg 3.125 mg p.o. twice daily (3) BPH (benign prostatic hyperplasia) Assessment/Plan: Tamsulosin 0.4 mg p.o. daily. The patient had a UTI for which he was treated with Cipro and completed antibiotics. (4) Delirium Assessment/Plan: 04/21: with the leukocytosis he also began having visual hallucinations. I suspect is related to delirium and sundowning and worsened by a UTI. He was redirectable and was oriented to self and location. His MRI from April 17 did suggest there may be some restricted diffusion involving the temporal, stable, posterior lobes and the differential was quite broad. That change we believe was due to the prolonged and severe seizure he had. 04/22: Hallucinations present but redirectable and not needing haldol or restraints 04/23: in the business specialist around 5:30 am, hallucinations continued and then he suddenly was afraid of the nurse and began kicking, pulling out his IV, flailing his arms. We initiated violent restraints. Haldol and Zyprexa used as one time doses. By 7 pm could be transitioned to nonviolent restraints. 04/24: Continued on on nonviolent, upper/lower limb soft restraints. He still wants to keep on getting out of bed. Keeps on wanting to pull at the IV. We have a one-to-one sitter with him. He is not redirectable. Not oriented. Ativan 1 mg since 04/18 is used prn. 04/25: Ativan used 5 times in 24 hours. By 7 pm restraints reduced to 2 extremity from 4 extremity. He was able to self cath himself. Still impulsive and wants to go home and wants to get out of bed. No longer needing 1:1. 04/26: back to 1:1 but off all restraints. Last ativan was 11:53 am on 04/26. and daughter able to visit him and he was alert, oriented to place and person. More cooperative but doesn't want to be in bed. Sat on sofa or chair in room and walked in room. Really wants to go home and is upset his family didn't take him home. 04/27: alert, cooperative but not happy to be here. 1:1 stopped by afternoon since he kept on wanting to walk without assistance. No ativan. 04/28: No restraints and no 1:1. Ativan 2 mg given for focal seizure breakthrough NOT for behavioral issue 04/29: No restraints and does need some 1:1. Ativan continues to be given for seizure NOT behavioral. 04/30: Continues to not need restraints but requires some one-to-one. Plan: White cell count is normal, no fever, and anticipate that he will gradually recover. His lets us know that it took him 3 months to recover from the last time he had a seizure in May 2020. - Current Meds Current Meds: Current Medications Generic Name Dose Route Start Last Admin Trade Name Montyq PRN Reason Stop Dose Admin Acetaminophen 1,000 mg 04/16/21 15:44 04/30/21 22:02 Acetaminophen 500 Mg Tablet PO 1,000 mg Q6H PRN Administration Pain or Fever > 38C (100.4F) Apixaban 5 mg 04/27/21 21:00 04/30/21 20:25 Apixaban 5 Mg Tablet PO 5 mg BID PHAN Administration Atorvastatin Calcium 40 mg 04/19/21 21:00 04/30/21 20:26 Atorvastatin 40 Mg Tablet PO 40 mg QPM PHAN Administration Carvedilol 3.125 mg 04/19/21 12:00 04/30/21 20:26 Carvedilol 3.125 Mg Tablet PO 3.125 mg BID PHAN Administration Docusate Sodium 250 - 500 mg 04/16/21 09:00 04/30/21 08:26 Docusate Sodium 250 Mg Capsule PO 250 mg DAILY PHAN Administration Finasteride 5 mg 04/17/21 21:00 04/30/21 20:26 Finasteride 5 Mg Tablet PO 5 mg BID PHAN Administration Hydromorphone HCl 0.5 mg 04/25/21 15:10 04/28/21 17:33 Hydromorphone 0.5 Mg/0.5 Ml Syringe IVP 0.5 mg Q2H PRN Administration PAIN Sodium Chloride 1,000 mls @ 125 mls/hr 04/22/21 21:00 05/01/21 03:10 Normal Saline 0.9% IV 125 mls/hr .Q8H PHAN Administration Levetiracetam 1,000 mg/ Sodium 110 mls @ 400 mls/hr 04/30/21 13:30 04/30/21 20:45 Chloride IV Infused BID PHAN Infusion Lisinopril 20 mg 04/20/21 09:00 04/30/21 08:26 Lisinopril 20 Mg Tablet PO 20 mg DAILY PHAN Administration Lorazepam 1 mg 04/18/21 12:15 04/26/21 11:22 Lorazepam 2 Mg/Ml Vial IVP 1 mg Q2H PRN Administration Agitation Multivitamins/Minerals 1 tab 04/18/21 12:00 04/30/21 08:27 Multivitamin W/Minerals Tablet PO 1 tab DAILYWM PHAN Administration Ondansetron HCl 4 mg 04/13/21 17:14 04/19/21 18:02 Ondansetron 4 Mg/2 Ml Vial IVP 4 mg Q6HR PRN Administration Nausea / Vomiting Pom - Lacosamide [ 1 each 04/30/21 21:00 04/30/21 20:05 Vimpat] 100 Mg Tab * PO Not Given * BID PHAN Polyethylene Glycol 17 gm 04/16/21 09:00 04/30/21 08:26 Polyethylene Glycol 3350 17 Gm Packet PO 17 gm DAILY PHAN Administration Senna 8.6 - 17.2 mg 04/16/21 09:00 04/30/21 08:28 Senna 8.6 Mg Tablet PO 8.6 mg DAILY PHAN Administration Sodium Chloride 10 ml 04/13/21 17:14 04/29/21 20:13 Sodium Chloride Flush 0.9% 10 Ml Syringe IVP 10 ml PRN PRN Administration NEEDED PER PROVIDER ORDERS Sodium Chloride 10 ml 04/14/21 01:00 05/01/21 01:21 Sodium Chloride Flush 0.9% 10 Ml Syringe IVP Not Given 0100,0900,1700 PHAN Tamsulosin HCl 0.4 mg 04/14/21 09:00 04/30/21 08:28 Tamsulosin 0.4 Mg Capsule PO 0.4 mg DAILY PHAN Administration - Lab Result Fish Bone Diagrams: 05/01/21 05:46 05/01/21 05:46 - Additional Planning My Orders: My Active Orders 04/30/21 13:30 levETIRAcetam INJ [Keppra Inj] 1,000 mg Sodium Chloride 0.9% 100Ml [Normal Saline 0.9% 100Ml] 100 ml IV BID Subjective - Subjective Patient Reports: Other (Patient was very alert, awake and oriented today. See that in bedside chair. Daughter and were at bedside. Able to follow commands. Slight weakness and left upper extremity slight facial droop on the left side.) Objective Vital Signs: Vital Signs - 24 hr 04/30/21 04/30/21 04/30/21 15:54 19:43 23:38 Temperature 36.7 C 36.8 C 36.6 C Heart Rate [ 89 80 80 Brachial] Respiratory 20 16 18 Rate Blood Pressure 150/74 H 126/56 L 97/53 L [Right Brachial artery] O2 Saturation 98 98 97 Oxygen O2 Source Room air I&O (Last 24 Hrs): Intake and Output Totals x24h 04/29/21 04/30/21 05/01/21 23:59 23:59 23:59 Intake Total 3827.666 3240.417 635.417 Output Total 5225 4800 725 Balance -1397.334 -1559.583 -89.583 General: Alert, Oriented x3, Mild distress HEENT: PERRLA, EOMI Neuro: Alert, Other (mild left side weakness. Mild left facial droop) Cardiovascular: Other (Iregularly irregular rhythm, regular rate) Respiratory: Chest non-tender, No respiratory distress, Breath sounds nml Abdomen: Normal bowel sounds, Soft, No tenderness, No masses Extremities: No clubbing, No cyanosis, No edema, No tenderness/swelling Skin: No rashes, No breakdown, No significant lesion - Results Results: Laboratory Results WBC 10.6 x10^3/uL (4.8-10.8) 05/01/21 05:46 RBC 3.12 10^6/uL (4.70-6.10) L 05/01/21 05:46 Hgb 9.3 g/dL (14.0-18.0) L 05/01/21 05:46 Hct 28.3 % (42.0-52.0) L 05/01/21 05:46 MCV 90.7 fL (80.0-94.0) 05/01/21 05:46 MCH 29.8 pg (27.0-31.0) 05/01/21 05:46 MCHC 32.9 g/dL (32.0-36.0) 05/01/21 05:46 RDW 13.3 % (12.0-15.0) 05/01/21 05:46 Plt Count 297 10^3/uL (130-450) 05/01/21 05:46 MPV 9.0 fL (7.4-11.4) 05/01/21 05:46 Neut # (Auto) 8.7 10^3/uL (1.5-6.6) H 05/01/21 05:46 Lymph # (Auto) 1.1 10^3/uL (1.5-3.5) L 05/01/21 05:46 [facility] # (Auto) 0.7 10^3/uL (0.0-1.0) 05/01/21 05:46 Eos # (Auto) 0.1 10^3/uL (0.0-0.7) 05/01/21 05:46 Baso # (Auto) 0.1 10^3/uL (0.0-0.1) 05/01/21 05:46 Absolute Nucleated RBC 0.00 x10^3/uL 05/01/21 05:46 Total Counted 100 04/22/21 10:26 Band Neuts % (Manual) 1 % (0-10) 04/22/21 10:26 Abnorm Lymph % (Manual) 0 % 04/22/21 10:26 Nucleated RBC % 0.0 /100WBC 05/01/21 05:46 Neutrophils # (Manual) 37.9 10^3/uL (1.5-6.6) H 04/22/21 10:26 Lymphocytes # (Manual) 0.0 10^3/uL (1.5-3.5) L 04/22/21 10:26 Monocytes # (Manual) 0.8 10^3/uL (0.0-1.0) 04/22/21 10:26 Eosinophils # (Manual) 0.0 10^3/uL (0-0.7) 04/22/21 10:26 Basophils # (Manual) 0.0 10^3/uL (0-0.1) 04/22/21 10:26 Differential Comment MANUAL DIFFERENTIAL 04/22/21 10:26 WBC Morphology NORMAL APPEARANCE (NORMAL) 04/22/21 04:40 Platelet Estimate NORMAL (130-450,000) (NORMAL) 04/22/21 10:26 Platelet Morphology NORMAL APPEARANCE (NORMAL) 04/22/21 10:26 RBC Morph Micro Appear NORMAL APPEARANCE (NORMAL) 04/22/21 10:26 Sodium 138 mmol/L (135-145) 05/01/21 05:46 Potassium 3.5 mmol/L (3.5-5.0) 05/01/21 05:46 Chloride 108 mmol/L (101-111) 05/01/21 05:46 Carbon Dioxide 23 mmol/L (21-32) 05/01/21 05:46 Anion Gap 7.0 (6-13) 05/01/21 05:46 BUN 12 mg/dL (6-20) 05/01/21 05:46 Creatinine 0.9 mg/dL (0.6-1.2) 05/01/21 05:46 Estimated GFR (MDRD) 81 (>89) L 05/01/21 05:46 Glucose 103 mg/dL (70-100) H 05/01/21 05:46 Calcium 8.1 mg/dL (8.5-10.3) L 05/01/21 05:46 Magnesium 2.1 mg/dL (1.7-2.8) 04/13/21 13:10 Total Bilirubin 0.8 mg/dL (0.2-1.0) 04/13/21 13:10 AST 14 IU/L (10-42) 04/13/21 13:10 ALT 12 IU/L (10-60) 04/13/21 13:10 Alkaline Phosphatase 92 IU/L (42-121) 04/13/21 13:10 Total Protein 6.4 g/dL (6.7-8.2) L 04/13/21 13:10 Albumin 3.8 g/dL (3.2-5.5) 04/13/21 13:10 Globulin 2.6 g/dL (2.1-4.2) 04/13/21 13:10 Albumin/Globulin Ratio 1.5 (1.0-2.2) 04/13/21 13:10 Urine Color DARK YELLOW 04/22/21 12:01 Urine Clarity HAZY (CLEAR) 04/22/21 12:01 Urine pH 5.0 PH (5.0-7.5) 04/22/21 12:01 Ur Specific [place] >=1.030 (1.002-1.030) H 04/22/21 12:01 Urine Protein 30 mg/dL (NEGATIVE) H 04/22/21 12:01 Urine Glucose (UA) NEGATIVE mg/dL (NEGATIVE) 04/22/21 12:01 Urine Ketones TRACE mg/dL (NEGATIVE) 04/22/21 12:01 Urine Occult Blood LARGE (NEGATIVE) H 04/22/21 12:01 Urine Nitrite POSITIVE (NEGATIVE) H 04/22/21 12:01 Urine Bilirubin SMALL (NEGATIVE) H 04/22/21 12:01 Urine Urobilinogen 1 (NORMAL) E.U./dL (NORMAL) 04/22/21 12:01 Ur Leukocyte Esterase SMALL (NEGATIVE) H 04/22/21 12:01 Urine RBC TNTC /HPF (0-5) H 04/22/21 12:01 Urine WBC >25 /HPF (0-3) H 04/22/21 12:01 Ur Squamous Epith Cells RARE Squamous (<= Few) 04/22/21 12:01 Amorphous Sediment Few /LPF 04/15/21 11:50 Urine Bacteria Moderate /HPF (None Seen) H 04/22/21 12:01 Urine Mucus Moderate Strands 04/22/21 12:01 Urine Culture Comments INDICATED 04/22/21 12:01 Nasal Adenovirus (PCR) NOT DETECTED 04/13/21 16:48 Nasal B. parapertussis DNA (PCR) NOT DETECTED 04/13/21 16:48 Nasal Coronavir 229E PCR NOT DETECTED 04/13/21 16:48 Nasal Coronavir HKU1 PCR NOT DETECTED 04/13/21 16:48 Nasal Coronavir NL63 PCR NOT DETECTED 04/13/21 16:48 Nasal Coronavir OC43 PCR NOT DETECTED 04/13/21 16:48 Nasal Enterovir/Rhinovir PCR NOT DETECTED 04/13/21 16:48 Nasal Influenza B PCR NOT DETECTED 04/13/21 16:48 Nasal Influenza A PCR NOT DETECTED 04/13/21 16:48 Nasal Parainfluen 1 PCR NOT DETECTED 04/13/21 16:48 Nasal Parainfluen 2 PCR NOT DETECTED 04/13/21 16:48 Nasal Parainfluen 3 PCR NOT DETECTED 04/13/21 16:48 Nasal Parainfluen 4 PCR NOT DETECTED 04/13/21 16:48 Nasal RSV (PCR) NOT DETECTED 04/13/21 16:48 Nasal B.pertussis DNA PCR NOT DETECTED 04/13/21 16:48 Nasal C.pneumoniae (PCR) NOT DETECTED 04/13/21 16:48 Mian Human Metapneumo PCR NOT DETECTED 04/13/21 16:48 Nasal M.pneumoniae (PCR) NOT DETECTED 04/13/21 16:48 Nasal SARS-CoV-2 (PCR) NOT DETECTED 04/13/21 16:48 Levetiracetam 28.3 mcg/mL 04/25/21 12:24 Ethyl Alcohol < 5.0 mg/dL 04/13/21 13:10 ABX Reporting Has patient been on IV antibiotics over the past 48 hours?: No
[2021-05-01] MEDS: TAMSULOSIN 0.4 MG CAPSULE PO SCH (08:31)
[2021-05-01] MEDS: carvediloL 3.125 MG TABLET PO SCH ×3 (08:31→20:51)
[2021-05-01] MEDS: MULTIVITAMIN W/MINERALS TABLET PO SCH (08:31)
[2021-05-01] MEDS: FINASTERIDE 5 MG TABLET PO SCH ×2 (08:31→20:37)
[2021-05-01] MEDS: DOCUSATE SODIUM 250 MG CAPSULE PO SCH (08:31)
[2021-05-01] MEDS: SENNA 8.6 MG TABLET PO SCH (08:31)
[2021-05-01] MEDS: APIXABAN 5 MG TABLET PO SCH ×2 (08:32→20:37)
[2021-05-01] MEDS: lisinopriL 20 MG TABLET PO SCH (08:32)
[2021-05-01] MEDS: polyethylene glycoL 3350 17 GM PACKET PO SCH (08:32)
[2021-05-01] MEDS: LACOSAMIDE 100 MG PO SCH (08:33)
[2021-05-01] MEDS: levETIRAcetam INJ 1,000 MG in SODIUM CHLORIDE 0.9% 100ML 100 ML IV SCH ×2 (08:47→20:35)
[2021-05-01] MEDS: ACETAMINOPHEN 500 MG TABLET PO PRN ×2 (09:00→19:36)
[2021-05-01] MEDS ORDERED: BISACODYL 10 MG SUPP PR ONE (14:41)
[2021-05-01] MEDS ORDERED: LORazepam 2 MG/ML VIAL IVP STA (19:47)
[2021-05-01] MEDS: SODIUM CHLORIDE FLUSH 0.9% 10 ML SYRINGE IVP PRN (19:54)
[2021-05-01] MEDS: ATORVASTATIN 40 MG TABLET PO SCH (20:37)
[2021-05-01] MEDS: OXcarbazepine 150 MG TABLET PO SCH (22:02)
[2021-05-02] MEDS: SODIUM CHLORIDE FLUSH 0.9% 10 ML SYRINGE IVP SCH ×2 (02:46→18:05)
[2021-05-02] MEDS ORDERED: LORazepam 2 MG/ML VIAL IVP SCH (03:00)
[2021-05-02] MEDS: SODIUM CHLORIDE 0.9% 1,000 ML IV SCH ×3 (04:52→19:40)
[2021-05-02] MEDS: ACETAMINOPHEN 500 MG TABLET PO PRN (06:59)
[2021-05-02 08:02] LABS: BASOPHILS # (AUTO) 0.1 10^3/uL (0.0-0.1); BASOPHILS % (AUTO) 0.5 %; EOSINOPHILS # (AUTO) 0.1 10^3/uL (0.0-0.7); EOSINOPHILS % (AUTO) 0.9 %; HCT - HEMATOCRIT 27.8 % (42.0-52.0); HGB - HEMOGLOBIN 9.2 g/dL (14.0-18.0); LYMPHOCYTES # (AUTO) 1.3 10^3/uL (1.5-3.5); LYMPHOCYTES % (AUTO) 13.1 %; MEAN CORPUSCULAR HGB CONC 33.1 g/dL (32.0-36.0); MEAN CORPUSCULAR VOLUME 90.6 fL (80.0-94.0); MEAN PLATELET VOLUME 9.3 fL (7.4-11.4); MONOCYTES # (AUTO) 0.6 10^3/uL (0.0-1.0); MONOCYTES % (AUTO) 5.8 %; NEUTROPHILS % (AUTO) 79.2 %; PLT - PLATELET COUNT 284 10^3/uL (130-450); RED BLOOD COUNT 3.07 10^6/uL (4.70-6.10); RED CELL DISTRIBUTION WIDTH 13.4 % (12.0-15.0); WHITE BLOOD COUNT 10.1 x10^3/uL (4.8-10.8)
--- NOTE | 2021-05-02 08:02 | PROVIDER PROGRESS NOTE ---
Assessment/Plan - Problem List (1) Seizure as late effect of cerebrovascular accident (CVA) Assessment/Plan: 05/02/21 Patient had 2 episodes of seizures last night Started on Trileptal 450mg po bid yesterday evening per Dr Mar's recommendation Trileptal increased to 600mg po bid tonight 05/01/21 I placed a call to his neulogist's Dr Mar and left a messaging Requesting recommendation for a substitute to Vimpat. Awaiting input 04/30/21 Neurologist at [facility] epilepsy clinic was contacted yesterday. Dr. Lal recommended increasing patient's Keppra to 1000 mg twice daily. This was done. Vimpat 100 mg p.o. twice daily was also ordered. The patient has been on Vimpat previously but had to discontinue it due to the cost. The patient's was unable to fill this due to cost. Lorazepam 1 mg IV push every 2 hours as needed for twitches or seizure. (2) Afib Assessment/Plan: Eliquis 5 mg p.o. twice daily Coreg 3.125 mg p.o. twice daily (3) BPH (benign prostatic hyperplasia) Assessment/Plan: Tamsulosin 0.4 mg p.o. daily. The patient had a UTI for which he was treated with Cipro and completed antibi otics. (4) Delirium Assessment/Plan: 04/21: with the leukocytosis he also began having visual hallucinations. I suspect is related to delirium and sundowning and worsened by a UTI. He was redirectable and was oriented to self and location. His MRI from April 17 did suggest there may be some restricted diffusion involving the temporal, stable, posterior lobes and the differential was quite broad. That change we believe was due to the prolonged and severe seizure he had. 04/22: Hallucinations present but redirectable and not needing haldol or restrain ts 04/23: in the practicing urologist around 5:30 am, hallucinations continued and then he suddenly was afraid of the nurse and began kicking, pulling out his IV, flailing his arms. We initiated violent restraints. Haldol and Zyprexa used as one time doses. By 7 pm could be transitioned to nonviolent restraints. 04/24: Continued on on nonviolent, upper/lower limb soft restraints. He still wants to keep on getting out of bed. Keeps on wanting to pull at the IV. We have a one-to-one sitter with him. He is not redirectable. Not oriented. Ativan 1 mg since 04/18 is used prn. 04/25: Ativan used 5 times in 24 hours. By 7 pm restraints reduced to 2 extremity from 4 extremity. He was able to self cath himself. Still impulsive and wants to go home and wants to get out of bed. No longer needing 1:1. 04/26: back to 1:1 but off all restraints. Last ativan was 11:53 am on 04/26. and daughter able to visit him and he was alert, oriented to place and person. More cooperative but doesn't want to be in bed. Sat on sofa or chair in room and walked in room. Really wants to go home and is upset his family didn't take him home. 04/27: alert, cooperative but not happy to be here. 1:1 stopped by afternoon since he kept on wanting to walk without assistance. No ativan. 04/28: No restraints and no 1:1. Ativan 2 mg given for focal seizure breakthrough NOT for behavioral issue 04/29: No restraints and does need some 1:1. Ativan continues to be given for seizure NOT behavioral. 04/30: Continues to not need restraints but requires some one-to-one. Plan: White cell count is normal, no fever, and anticipate that he will gradually recover. His lets us know that it took him 3 months to recover from the last time he had a seizure in May 2020. - Current Meds Current Meds: Current Medications Generic Name Dose Route Start Last Admin Trade Name Freq PRN Reason Stop Dose Admin Acetaminophen 1,000 mg 04/16/21 15:44 05/02/21 06:59 Acetaminophen 500 Mg Tablet PO 1,000 mg Q6H PRN Administration Pain or Fever > 38C (100.4F) Apixaban 5 mg 04/27/21 21:00 05/01/21 20:37 Apixaban 5 Mg Tablet PO 5 mg BID PHAN Administration Atorvastatin Calcium 40 mg 04/19/21 21:00 05/01/21 20:37 Atorvastatin 40 Mg Tablet PO 40 mg QPM PHAN Administration Carvedilol 3.125 mg 04/19/21 12:00 05/01/21 20:51 Carvedilol 3.125 Mg Tablet PO Not Given BID PHAN Docusate Sodium 250 - 500 mg 04/16/21 09:00 05/01/21 08:31 Docusate Sodium 250 Mg Capsule PO 250 mg DAILY PHAN Administration Finasteride 5 mg 04/17/21 21:00 05/01/21 20:37 Finasteride 5 Mg Tablet PO 5 mg BID PHAN Administration Hydromorphone HCl 0.5 mg 04/25/21 15:10 04/28/21 17:33 Hydromorphone 0.5 Mg/0.5 Ml Syringe IVP 0.5 mg Q2H PRN Administration PAIN Sodium Chloride 1,000 mls @ 125 mls/hr 04/22/21 21:00 05/02/21 04:52 Normal Saline 0.9% IV 125 mls/hr .Q8H PHAN Administration Levetiracetam 1,000 mg/ Sodium 110 mls @ 400 mls/hr 04/30/21 13:30 05/01/21 20:52 Chloride IV Infused BID PHAN Infusion Lisinopril 20 mg 04/20/21 09:00 05/01/21 08:32 Lisinopril 20 Mg Tablet PO 20 mg DAILY PHAN Administration Lorazepam 2 mg 05/02/21 03:00 05/02/21 02:46 Lorazepam 2 Mg/Ml Vial IVP 05/03/21 02:59 2 mg ONCE PHAN Administration Multivitamins/Minerals 1 tab 04/18/21 12:00 05/01/21 08:31 Multivitamin W/Minerals Tablet PO 1 tab DAILYWM PHAN Administration Ondansetron HCl 4 mg 04/13/21 17:14 04/19/21 18:02 Ondansetron 4 Mg/2 Ml Vial IVP 4 mg Q6HR PRN Administration Nausea / Vomiting Oxcarbazepine 450 mg 05/01/21 21:00 05/01/21 22:02 Oxcarbazepine 150 Mg Tablet PO 450 mg BID PHAN Administration Polyethylene Glycol 17 gm 04/16/21 09:00 05/01/21 08:32 Polyethylene Glycol 3350 17 Gm Packet PO 17 gm DAILY PHAN Administration Senna 8.6 - 17.2 mg 04/16/21 09:00 05/01/21 08:31 Senna 8.6 Mg Tablet PO 8.6 mg DAILY PHAN Administration Sodium Chloride 10 ml 04/13/21 17:14 05/01/21 19:54 Sodium Chloride Flush 0.9% 10 Ml Syringe IVP 10 ml PRN PRN Administration NEEDED PER PROVIDER ORDERS Sodium Chloride 10 ml 04/14/21 01:00 05/02/21 02:46 Sodium Chloride Flush 0.9% 10 Ml Syringe IVP 10 ml 0100,0900,1700 PHAN Administration Tamsulosin HCl 0.4 mg 04/14/21 09:00 05/01/21 08:31 Tamsulosin 0.4 Mg Capsule PO 0.4 mg DAILY PHAN Administration - Lab Result Fish Bone Diagrams: 05/02/21 07:38 05/02/21 07:38 - Additional Planning My Orders: My Active Orders 05/01/21 21:00 OXcarbazepine [Trileptal] 450 mg PO BID 05/02/21 07:38 BMP - BASIC METABOLIC PANEL [CHEM] Routine CBC - COMP BLD CT W/AUTO DIFF [HEME] Routine 05/02/21 08:00 TROPONIN I HIGH SENSITIVITY [IAI] Stat 05/02/21 08:01 EKG - Electrocardiogram [RC] .ONCE 05/03/21 05:00 BMP - BASIC METABOLIC PANEL [CHEM] DAILYLAB CBC - COMP BLD CT W/AUTO DIFF [HEME] DAILYLAB 05/04/21 05:00 BMP - BASIC METABOLIC PANEL [CHEM] DAILYLAB CBC - COMP BLD CT W/AUTO DIFF [HEME] DAILYLAB 05/05/21 05:00 BMP - BASIC METABOLIC PANEL [CHEM] DAILYLAB CBC - COMP BLD CT W/AUTO DIFF [HEME] DAILYLAB 05/06/21 05:00 BMP - BASIC METABOLIC PANEL [CHEM] DAILYLAB CBC - COMP BLD CT W/AUTO DIFF [HEME] DAILYLAB 05/07/21 05:00 BMP - BASIC METABOLIC PANEL [CHEM] DAILYLAB CBC - COMP BLD CT W/AUTO DIFF [HEME] DAILYLAB Subjective - Subjective Patient Reports: Other (It was reported that patient had 2 episodes of seizures last night and was given ativan. Was seated in bedside chair at time of visit. Alert and awake. Answers some questions appropriately. Left upper extremity weakness noted) Objective Vital Signs: Vital Signs - 24 hr 05/01/21 05/01/21 05/01/21 08:31 12:00 18:47 Temperature 36.6 C 36.2 C L 36.6 C Heart Rate [ 83 81 84 Brachial] Respiratory 16 17 18 Rate Blood Pressure 129/66 118/76 122/66 [Right Brachial artery] O2 Saturation 97 97 97 05/01/21 05/01/21 05/02/21 20:44 23:38 06:56 Temperature 36.6 C Heart Rate [ 82 87 79 Brachial] Respiratory 18 20 16 Rate Blood Pressure 105/51 L 143/73 H 139/73 H [Right Brachial artery] O2 Saturation 100 96 Oxygen O2 Source Room air I&O (Last 24 Hrs): Intake and Output Totals x24h 04/30/21 05/01/21 05/02/21 23:59 23:59 23:59 Intake Total 3240.417 3624.167 1100 Output Total 4800 1825 1000 Balance -3819.420 0990.167 100 General: Alert, No acute distress, Other (oriented X 2) HEENT: PERRLA, EOMI Neck: Supple, No JVD Neuro: Alert, Focal Deficits (left upper extremity weakness) Cardiovascular: Regular rate, Other (Irregularly irregular) Respiratory: Chest non-tender, No respiratory distress, Breath sounds nml Abdomen: Normal bowel sounds, Soft, No tenderness Extremities: No clubbing, No cyanosis, No edema, Normal pulses, No tenderness/swelling Skin: No rashes, No breakdown, No significant lesion - Results Results: Laboratory Results WBC 10.6 x10^3/uL (4.8-10.8) 05/01/21 05:46 RBC 3.12 10^6/uL (4.70-6.10) L 05/01/21 05:46 Hgb 9.3 g/dL (14.0-18.0) L 05/01/21 05:46 Hct 28.3 % (42.0-52.0) L 05/01/21 05:46 MCV 90.7 fL (80.0-94.0) 05/01/21 05:46 MCH 29.8 pg (27.0-31.0) 05/01/21 05:46 MCHC 32.9 g/dL (32.0-36.0) 05/01/21 05:46 RDW 13.3 % (12.0-15.0) 05/01/21 05:46 Plt Count 297 10^3/uL (130-450) 05/01/21 05:46 MPV 9.0 fL (7.4-11.4) 05/01/21 05:46 Neut # (Auto) 8.7 10^3/uL (1.5-6.6) H 05/01/21 05:46 Lymph # (Auto) 1.1 10^3/uL (1.5-3.5) L 05/01/21 05:46 [place] # (Auto) 0.7 10^3/uL (0.0-1.0) 05/01/21 05:46 Eos # (Auto) 0.1 10^3/uL (0.0-0.7) 05/01/21 05:46 Baso # (Auto) 0.1 10^3/uL (0.0-0.1) 05/01/21 05:46 Absolute Nucleated RBC 0.00 x10^3/uL 05/01/21 05:46 Total Counted 100 04/22/21 10:26 Band Neuts % (Manual) 1 % (0-10) 04/22/21 10:26 Abnorm Lymph % (Manual) 0 % 04/22/21 10:26 Nucleated RBC % 0.0 /100WBC 05/01/21 05:46 Neutrophils # (Manual) 37.9 10^3/uL (1.5-6.6) H 04/22/21 10:26 Lymphocytes # (Manual) 0.0 10^3/uL (1.5-3.5) L 04/22/21 10:26 Monocytes # (Manual) 0.8 10^3/uL (0.0-1.0) 04/22/21 10:26 Eosinophils # (Manual) 0.0 10^3/uL (0-0.7) 04/22/21 10:26 Basophils # (Manual) 0.0 10^3/uL (0-0.1) 04/22/21 10:26 Differential Comment MANUAL DIFFERENTIAL 04/22/21 10:26 WBC Morphology NORMAL APPEARANCE (NORMAL) 04/22/21 04:40 Platelet Estimate NORMAL (130-450,000) (NORMAL) 04/22/21 10:26 Platelet Morphology NORMAL APPEARANCE (NORMAL) 04/22/21 10:26 RBC Morph Micro Appear NORMAL APPEARANCE (NORMAL) 04/22/21 10:26 Sodium 138 mmol/L (135-145) 05/01/21 05:46 Potassium 3.5 mmol/L (3.5-5.0) 05/01/21 05:46 Chloride 108 mmol/L (101-111) 05/01/21 05:46 Carbon Dioxide 23 mmol/L (21-32) 05/01/21 05:46 Anion Gap 7.0 (6-13) 05/01/21 05:46 BUN 12 mg/dL (6-20) 05/01/21 05:46 Creatinine 0.9 mg/dL (0.6-1.2) 05/01/21 05:46 Estimated GFR (MDRD) 81 (>89) L 05/01/21 05:46 Glucose 103 mg/dL (70-100) H 05/01/21 05:46 Calcium 8.1 mg/dL (8.5-10.3) L 05/01/21 05:46 Magnesium 2.1 mg/dL (1.7-2.8) 04/13/21 13:10 Total Bilirubin 0.8 mg/dL (0.2-1.0) 04/13/21 13:10 AST 14 IU/L (10-42) 04/13/21 13:10 ALT 12 IU/L (10-60) 04/13/21 13:10 Alkaline Phosphatase 92 IU/L (42-121) 04/13/21 13:10 Total Protein 6.4 g/dL (6.7-8.2) L 04/13/21 13:10 Albumin 3.8 g/dL (3.2-5.5) 04/13/21 13:10 Globulin 2.6 g/dL (2.1-4.2) 04/13/21 13:10 Albumin/Globulin Ratio 1.5 (1.0-2.2) 04/13/21 13:10 Urine Color DARK YELLOW 04/22/21 12:01 Urine Clarity HAZY (CLEAR) 04/22/21 12:01 Urine pH 5.0 PH (5.0-7.5) 04/22/21 12:01 Ur Specific [place] >=1.030 (1.002-1.030) H 04/22/21 12:01 Urine Protein 30 mg/dL (NEGATIVE) H 04/22/21 12:01 Urine Glucose (UA) NEGATIVE mg/dL (NEGATIVE) 04/22/21 12:01 Urine Ketones TRACE mg/dL (NEGATIVE) 04/22/21 12:01 Urine Occult Blood LARGE (NEGATIVE) H 04/22/21 12:01 Urine Nitrite POSITIVE (NEGATIVE) H 04/22/21 12:01 Urine Bilirubin SMALL (NEGATIVE) H 04/22/21 12:01 Urine Urobilinogen 1 (NORMAL) E.U./dL (NORMAL) 04/22/21 12:01 Ur Leukocyte Esterase SMALL (NEGATIVE) H 04/22/21 12:01 Urine RBC TNTC /HPF (0-5) H 04/22/21 12:01 Urine WBC >25 /HPF (0-3) H 04/22/21 12:01 Ur Squamous Epith Cells RARE Squamous (<= Few) 04/22/21 12:01 Amorphous Sediment Few /LPF 04/15/21 11:50 Urine Bacteria Moderate /HPF (None Seen) H 04/22/21 12:01 Urine Mucus Moderate Strands 04/22/21 12:01 Urine Culture Comments INDICATED 04/22/21 12:01 Nasal Adenovirus (PCR) NOT DETECTED 04/13/21 16:48 Nasal B. parapertussis DNA (PCR) NOT DETECTED 04/13/21 16:48 Nasal Coronavir 229E PCR NOT DETECTED 04/13/21 16:48 Nasal Coronavir HKU1 PCR NOT DETECTED 04/13/21 16:48 Nasal Coronavir NL63 PCR NOT DETECTED 04/13/21 16:48 Nasal Coronavir OC43 PCR NOT DETECTED 04/13/21 16:48 Nasal Enterovir/Rhinovir PCR NOT DETECTED 04/13/21 16:48 Nasal Influenza B PCR NOT DETECTED 04/13/21 16:48 Nasal Influenza A PCR NOT DETECTED 04/13/21 16:48 Nasal Parainfluen 1 PCR NOT DETECTED 04/13/21 16:48 Nasal Parainfluen 2 PCR NOT DETECTED 04/13/21 16:48 Nasal Parainfluen 3 PCR NOT DETECTED 04/13/21 16:48 Nasal Parainfluen 4 PCR NOT DETECTED 04/13/21 16:48 Nasal RSV (PCR) NOT DETECTED 04/13/21 16:48 Nasal B.pertussis DNA PCR NOT DETECTED 04/13/21 16:48 Nasal C.pneumoniae (PCR) NOT DETECTED 04/13/21 16:48 Mian Human Metapneumo PCR NOT DETECTED 04/13/21 16:48 Nasal M.pneumoniae (PCR) NOT DETECTED 04/13/21 16:48 Nasal SARS-CoV-2 (PCR) NOT DETECTED 04/13/21 16:48 Levetiracetam 28.3 mcg/mL 04/25/21 12:24 Ethyl Alcohol < 5.0 mg/dL 04/13/21 13:10 ABX Reporting Has patient been on IV antibiotics over the past 48 hours?: No
[2021-05-02] MEDS: polyethylene glycoL 3350 17 GM PACKET PO SCH (08:17)
[2021-05-02 08:40] LABS: CREATININE 0.8 mg/dL (0.6-1.2); POTASSIUM 3.2 mmol/L (3.5-5.0)
[2021-05-02] MEDS: DOCUSATE SODIUM 250 MG CAPSULE PO SCH (09:20)
[2021-05-02] MEDS: MULTIVITAMIN W/MINERALS TABLET PO SCH (09:20)
[2021-05-02] MEDS: carvediloL 3.125 MG TABLET PO SCH ×2 (09:21→21:20)
[2021-05-02] MEDS: levETIRAcetam INJ 1,000 MG in SODIUM CHLORIDE 0.9% 100ML 100 ML IV SCH (09:21)
[2021-05-02] MEDS: FINASTERIDE 5 MG TABLET PO SCH ×2 (09:21→21:20)
[2021-05-02] MEDS: TAMSULOSIN 0.4 MG CAPSULE PO SCH (09:21)
[2021-05-02] MEDS: lisinopriL 20 MG TABLET PO SCH (09:21)
[2021-05-02] MEDS: SENNA 8.6 MG TABLET PO SCH (09:21)
[2021-05-02] MEDS: APIXABAN 5 MG TABLET PO SCH ×2 (09:21→21:20)
[2021-05-02] MEDS: OXcarbazepine 150 MG TABLET PO SCH ×2 (10:23→21:19)
[2021-05-02] MEDS: ATORVASTATIN 40 MG TABLET PO SCH (21:20)
[2021-05-02] MEDS: levETIRAcetam 500 MG/5 ML UDC PO SCH (21:20)
[2021-05-03] MEDS: SODIUM CHLORIDE 0.9% 1,000 ML IV SCH ×3 (01:56→21:17)
[2021-05-03] MEDS: SODIUM CHLORIDE FLUSH 0.9% 10 ML SYRINGE IVP SCH ×3 (02:15→18:29)
[2021-05-03 04:49] LABS: BASOPHILS # (AUTO) 0.1 10^3/uL (0.0-0.1); BASOPHILS % (AUTO) 0.7 %; EOSINOPHILS # (AUTO) 0.1 10^3/uL (0.0-0.7); EOSINOPHILS % (AUTO) 1.2 %; HCT - HEMATOCRIT 24.6 % (42.0-52.0); HGB - HEMOGLOBIN 8.1 g/dL (14.0-18.0); LYMPHOCYTES # (AUTO) 1.6 10^3/uL (1.5-3.5); LYMPHOCYTES % (AUTO) 18.2 %; MEAN CORPUSCULAR HEMOGLOBIN 29.7 pg (27.0-31.0); MEAN CORPUSCULAR HGB CONC 32.9 g/dL (32.0-36.0); MEAN CORPUSCULAR VOLUME 90.1 fL (80.0-94.0); MEAN PLATELET VOLUME 9.4 fL (7.4-11.4); MONOCYTES # (AUTO) 0.6 10^3/uL (0.0-1.0); MONOCYTES % (AUTO) 6.2 %; NEUTROPHILS # (AUTO) 6.5 10^3/uL (1.5-6.6); NEUTROPHILS % (AUTO) 73.4 %; PLT - PLATELET COUNT 282 10^3/uL (130-450); RED BLOOD COUNT 2.73 10^6/uL (4.70-6.10); RED CELL DISTRIBUTION WIDTH 13.2 % (12.0-15.0); WHITE BLOOD COUNT 8.9 x10^3/uL (4.8-10.8)
[2021-05-03 04:57] LABS: CALCIUM 7.9 mg/dL (8.5-10.3); CREATININE 0.9 mg/dL (0.6-1.2); POTASSIUM 3.2 mmol/L (3.5-5.0)
[2021-05-03] MEDS ORDERED: POTASSIUM CHLORIDE 20 MEQ TABLET PO ONE (07:33)
--- NOTE | 2021-05-03 07:36 | PROVIDER PROGRESS NOTE ---
Assessment/Plan - Problem List (1) Seizure as late effect of cerebrovascular accident (CVA) Assessment/Plan: 05/03/21 No seizures in 36 hrs Continue Trileptal 600mg po bid Continue Keppra 1000mg po bid 05/02/21 Patient had 2 episodes of seizures last night Started on Trileptal 450mg po bid yesterday evening per Dr Mar's recommendation Trileptal increased to 600mg po bid tonight 05/01/21 I placed a call to his neulogist's Dr Mar and left a messaging Requesting recommendation for a substitute to Vimpat. Awaiting input 04/30/21 Neurologist at [facility] epilepsy clinic was contacted yesterday. Dr. Lal recommended increasing patient's Keppra to 1000 mg twice daily. This was done. Vimpat 100 mg p.o. twice daily was also ordered. The patient has been on Vimpat previously but had to discontinue it due to the cost. The patient's was unable to fill this due to cost. Lorazepam 1 mg IV push every 2 hours as needed for twitches or seizure. (2) Afib Assessment/Plan: Eliquis 5 mg p.o. twice daily Coreg 3.125 mg p.o. twice daily (3) BPH (benign prostatic hyperplasia) Assessment/Plan: Tamsulosin 0.4 mg p.o. daily. The patient had a UTI for which he was treated with Cipro and completed antibiotics. (4) Delirium Assessment/Plan: Patient has been off restraint for 3 days now Continues to have some 1:1 observation No episodes of agitation in 3 days Plan: White cell count is normal, no fever, and anticipate that he will gradually recover. His lets us know that it took him 3 months to recover from the last time he had a seizure in May 2020. - Current Meds Current Meds: Current Medications Generic Name Dose Route Start Last Admin Trade Name Freq PRN Reason Stop Dose Admin Acetaminophen 1,000 mg 04/16/21 15:44 05/02/21 06:59 Acetaminophen 500 Mg Tablet PO 1,000 mg Q6H PRN Administration Pain or Fever > 38C (100.4F) Apixaban 5 mg 04/27/21 21:00 05/02/21 21:20 Apixaban 5 Mg Tablet PO 5 mg BID PHAN Administration Atorvastatin Calcium 40 mg 04/19/21 21:00 05/02/21 21:20 Atorvastatin 40 Mg Tablet PO 40 mg QPM PHAN Administration Carvedilol 3.125 mg 04/19/21 12:00 05/02/21 21:20 Carvedilol 3.125 Mg Tablet PO 3.125 mg BID PHAN Administration Docusate Sodium 250 - 500 mg 04/16/21 09:00 05/02/21 09:20 Docusate Sodium 250 Mg Capsule PO 250 mg DAILY PHAN Administration Finasteride 5 mg 04/17/21 21:00 05/02/21 21:20 Finasteride 5 Mg Tablet PO 5 mg BID PHAN Administration Hydromorphone HCl 0.5 mg 04/25/21 15:10 04/28/21 17:33 Hydromorphone 0.5 Mg/0.5 Ml Syringe IVP 0.5 mg Q2H PRN Administration PAIN Sodium Chloride 1,000 mls @ 125 mls/hr 04/22/21 21:00 05/03/21 06:28 Normal Saline 0.9% IV 125 mls/hr .Q8H PHAN Infusion Levetiracetam 1,000 mg 05/02/21 21:00 05/02/21 21:20 Levetiracetam 500 Mg/5 Ml Udc PO 1,000 mg BID PHAN Administration Lisinopril 20 mg 04/20/21 09:00 05/02/21 09:21 Lisinopril 20 Mg Tablet PO 20 mg DAILY PHAN Administration Multivitamins/Minerals 1 tab 04/18/21 12:00 05/02/21 09:20 Multivitamin W/Minerals Tablet PO 1 tab DAILYWM PHAN Administration Ondansetron HCl 4 mg 04/13/21 17:14 04/19/21 18:02 Ondansetron 4 Mg/2 Ml Vial IVP 4 mg Q6HR PRN Administration Nausea / Vomiting Oxcarbazepine 600 mg 05/02/21 21:00 05/02/21 21:19 Oxcarbazepine 150 Mg Tablet PO 600 mg BID PHAN Administration Polyethylene Glycol 17 gm 04/16/21 09:00 05/02/21 08:17 Polyethylene Glycol 3350 17 Gm Packet PO Not Given DAILY PHAN Senna 8.6 - 17.2 mg 04/16/21 09:00 05/02/21 09:21 Senna 8.6 Mg Tablet PO 8.6 mg DAILY PHAN Administration Sodium Chloride 10 ml 04/13/21 17:14 05/01/21 19:54 Sodium Chloride Flush 0.9% 10 Ml Syringe IVP 10 ml PRN PRN Administration NEEDED PER PROVIDER ORDERS Sodium Chloride 10 ml 04/14/21 01:00 05/03/21 02:15 Sodium Chloride Flush 0.9% 10 Ml Syringe IVP Not Given 0100,0900,1700 PHAN Tamsulosin HCl 0.4 mg 04/14/21 09:00 05/02/21 09:21 Tamsulosin 0.4 Mg Capsule PO 0.4 mg DAILY PHAN Administration - Lab Result Fish Bone Diagrams: 05/03/21 04:27 05/03/21 04:27 - Additional Planning My Orders: My Active Orders 05/02/21 21:00 OXcarbazepine [Trileptal] 600 mg PO BID levETIRAcetam [Keppra] 1,000 mg PO BID 05/03/21 07:33 Potassium Chloride [K-Dur] 40 meq PO ONCE ONE 05/03/21 07:34 MAGNESIUM [CHEM] Stat 05/04/21 05:00 BMP - BASIC METABOLIC PANEL [CHEM] DAILYLAB CBC - COMP BLD CT W/AUTO DIFF [HEME] DAILYLAB 05/05/21 05:00 BMP - BASIC METABOLIC PANEL [CHEM] DAILYLAB CBC - COMP BLD CT W/AUTO DIFF [HEME] DAILYLAB 05/06/21 05:00 BMP - BASIC METABOLIC PANEL [CHEM] DAILYLAB CBC - COMP BLD CT W/AUTO DIFF [HEME] DAILYLAB 05/07/21 05:00 BMP - BASIC METABOLIC PANEL [CHEM] DAILYLAB CBC - COMP BLD CT W/AUTO DIFF [HEME] DAILYLAB Subjective - Subjective Patient Reports: Other (More awake and alert today. No seizures in 36hrs. Res ponding to questions appropriately.) Objective Vital Signs: Vital Signs - 24 hr 05/02/21 05/02/21 05/03/21 12:23 16:44 00:00 Temperature 36.9 C 36.9 C 36.8 C Heart Rate [ 80 80 82 Brachial] Respiratory 18 16 24 Rate Blood Pressure 132/72 H 143/71 H 136/69 H [Right Brachial artery] O2 Saturation 98 96 95 Oxygen O2 Source Room air I&O (Last 24 Hrs): Intake and Output Totals x24h 05/01/21 05/02/21 05/03/21 23:59 23:59 23:59 Intake Total 3624.167 2580 1750.000 Output Total 1825 1975 1375 Balance 1799.167 605 375.000 General: Alert, No acute distress, Other (oriented X 2) HEENT: PERRLA, EOMI Neck: Supple, No JVD Neuro: Alert, Focal Deficits (left upper extremity weakness improved) Cardiovascular: Regular rate, Other (Irregularly irregular) Respiratory: Chest non-tender, No respiratory distress, Breath sounds nml Abdomen: Normal bowel sounds, Soft, No tenderness Extremities: No clubbing, No cyanosis, No edema, No tenderness/swelling Skin: No rashes, No breakdown, No significant lesion - Results Results: Laboratory Results WBC 8.9 x10^3/uL (4.8-10.8) 05/03/21 04:27 RBC 2.73 10^6/uL (4.70-6.10) L 05/03/21 04:27 Hgb 8.1 g/dL (14.0-18.0) L 05/03/21 04:27 Hct 24.6 % (42.0-52.0) L 05/03/21 04:27 MCV 90.1 fL (80.0-94.0) 05/03/21 04:27 MCH 29.7 pg (27.0-31.0) 05/03/21 04:27 MCHC 32.9 g/dL (32.0-36.0) 05/03/21 04:27 RDW 13.2 % (12.0-15.0) 05/03/21 04:27 Plt Count 282 10^3/uL (130-450) 05/03/21 04:27 MPV 9.4 fL (7.4-11.4) 05/03/21 04:27 Neut # (Auto) 6.5 10^3/uL (1.5-6.6) 05/03/21 04:27 Lymph # (Auto) 1.6 10^3/uL (1.5-3.5) 05/03/21 04:27 [place] # (Auto) 0.6 10^3/uL (0.0-1.0) 05/03/21 04:27 Eos # (Auto) 0.1 10^3/uL (0.0-0.7) 05/03/21 04:27 Baso # (Auto) 0.1 10^3/uL (0.0-0.1) 05/03/21 04:27 Absolute Nucleated RBC 0.00 x10^3/uL 05/03/21 04:27 Total Counted 100 04/22/21 10:26 Band Neuts % (Manual) 1 % (0-10) 04/22/21 10:26 Abnorm Lymph % (Manual) 0 % 04/22/21 10:26 Nucleated RBC % 0.0 /100WBC 05/03/21 04:27 Neutrophils # (Manual) 37.9 10^3/uL (1.5-6.6) H 04/22/21 10:26 Lymphocytes # (Manual) 0.0 10^3/uL (1.5-3.5) L 04/22/21 10:26 Monocytes # (Manual) 0.8 10^3/uL (0.0-1.0) 04/22/21 10:26 Eosinophils # (Manual) 0.0 10^3/uL (0-0.7) 04/22/21 10:26 Basophils # (Manual) 0.0 10^3/uL (0-0.1) 04/22/21 10:26 Differential Comment MANUAL DIFFERENTIAL 04/22/21 10:26 WBC Morphology NORMAL APPEARANCE (NORMAL) 04/22/21 04:40 Platelet Estimate NORMAL (130-450,000) (NORMAL) 04/22/21 10:26 Platelet Morphology NORMAL APPEARANCE (NORMAL) 04/22/21 10:26 RBC Morph Micro Appear NORMAL APPEARANCE (NORMAL) 04/22/21 10:26 Sodium 137 mmol/L (135-145) 05/03/21 04:27 Potassium 3.2 mmol/L (3.5-5.0) L 05/03/21 04:27 Chloride 108 mmol/L (101-111) 05/03/21 04:27 Carbon Dioxide 22 mmol/L (21-32) 05/03/21 04:27 Anion Gap 7.0 (6-13) 05/03/21 04:27 BUN 15 mg/dL (6-20) 05/03/21 04:27 Creatinine 0.9 mg/dL (0.6-1.2) 05/03/21 04:27 Estimated GFR (MDRD) 81 (>89) L 05/03/21 04:27 Glucose 91 mg/dL (70-100) 05/03/21 04:27 POC Whole Bld Glucose 128 mg/dL (70 - 100) H 04/28/21 10:17 Calcium 7.9 mg/dL (8.5-10.3) L 05/03/21 04:27 Magnesium 2.1 mg/dL (1.7-2.8) 04/13/21 13:10 Total Bilirubin 0.8 mg/dL (0.2-1.0) 04/13/21 13:10 AST 14 IU/L (10-42) 04/13/21 13:10 ALT 12 IU/L (10-60) 04/13/21 13:10 Alkaline Phosphatase 92 IU/L (42-121) 04/13/21 13:10 Troponin I High Sens 7.5 ng/L (2.3-19.7) 05/02/21 07:38 Total Protein 6.4 g/dL (6.7-8.2) L 04/13/21 13:10 Albumin 3.8 g/dL (3.2-5.5) 04/13/21 13:10 Globulin 2.6 g/dL (2.1-4.2) 04/13/21 13:10 Albumin/Globulin Ratio 1.5 (1.0-2.2) 04/13/21 13:10 Urine Color DARK YELLOW 04/22/21 12:01 Urine Clarity HAZY (CLEAR) 04/22/21 12:01 Urine pH 5.0 PH (5.0-7.5) 04/22/21 12:01 Ur Specific [place] >=1.030 (1.002-1.030) H 04/22/21 12:01 Urine Protein 30 mg/dL (NEGATIVE) H 04/22/21 12:01 Urine Glucose (UA) NEGATIVE mg/dL (NEGATIVE) 04/22/21 12:01 Urine Ketones TRACE mg/dL (NEGATIVE) 04/22/21 12:01 Urine Occult Blood LARGE (NEGATIVE) H 04/22/21 12:01 Urine Nitrite POSITIVE (NEGATIVE) H 04/22/21 12:01 Urine Bilirubin SMALL (NEGATIVE) H 04/22/21 12:01 Urine Urobilinogen 1 (NORMAL) E.U./dL (NORMAL) 04/22/21 12:01 Ur Leukocyte Esterase SMALL (NEGATIVE) H 04/22/21 12:01 Urine RBC TNTC /HPF (0-5) H 04/22/21 12:01 Urine WBC >25 /HPF (0-3) H 04/22/21 12:01 Ur Squamous Epith Cells RARE Squamous (<= Few) 04/22/21 12:01 Amorphous Sediment Few /LPF 04/15/21 11:50 Urine Bacteria Moderate /HPF (None Seen) H 04/22/21 12:01 Urine Mucus Moderate Strands 04/22/21 12:01 Urine Culture Comments INDICATED 04/22/21 12:01 Nasal Adenovirus (PCR) NOT DETECTED 04/13/21 16:48 Nasal B. parapertussis DNA (PCR) NOT DETECTED 04/13/21 16:48 Nasal Coronavir 229E PCR NOT DETECTED 04/13/21 16:48 Nasal Coronavir HKU1 PCR NOT DETECTED 04/13/21 16:48 Nasal Coronavir NL63 PCR NOT DETECTED 04/13/21 16:48 Nasal Coronavir OC43 PCR NOT DETECTED 04/13/21 16:48 Nasal Enterovir/Rhinovir PCR NOT DETECTED 04/13/21 16:48 Nasal Influenza B PCR NOT DETECTED 04/13/21 16:48 Nasal Influenza A PCR NOT DETECTED 04/13/21 16:48 Nasal Parainfluen 1 PCR NOT DETECTED 04/13/21 16:48 Nasal Parainfluen 2 PCR NOT DETECTED 04/13/21 16:48 Nasal Parainfluen 3 PCR NOT DETECTED 04/13/21 16:48 Nasal Parainfluen 4 PCR NOT DETECTED 04/13/21 16:48 Nasal RSV (PCR) NOT DETECTED 04/13/21 16:48 Nasal B.pertussis DNA PCR NOT DETECTED 04/13/21 16:48 Nasal C.pneumoniae (PCR) NOT DETECTED 04/13/21 16:48 Mian Human Metapneumo PCR NOT DETECTED 04/13/21 16:48 Nasal M.pneumoniae (PCR) NOT DETECTED 04/13/21 16:48 Nasal SARS-CoV-2 (PCR) NOT DETECTED 04/13/21 16:48 Levetiracetam 28.3 mcg/mL 04/25/21 12:24 Ethyl Alcohol < 5.0 mg/dL 04/13/21 13:10 ABX Reporting Has patient been on IV antibiotics over the past 48 hours?: No
[2021-05-03] MEDS: levETIRAcetam 500 MG/5 ML UDC PO SCH ×3 (08:29→21:34)
[2021-05-03] MEDS: DOCUSATE SODIUM 250 MG CAPSULE PO SCH (08:31)
[2021-05-03] MEDS: TAMSULOSIN 0.4 MG CAPSULE PO SCH (08:31)
[2021-05-03] MEDS: carvediloL 3.125 MG TABLET PO SCH ×2 (08:31→21:18)
[2021-05-03] MEDS: OXcarbazepine 150 MG TABLET PO SCH ×2 (08:31→21:18)
[2021-05-03] MEDS: lisinopriL 20 MG TABLET PO SCH (08:31)
[2021-05-03] MEDS: SENNA 8.6 MG TABLET PO SCH (08:31)
[2021-05-03] MEDS: FINASTERIDE 5 MG TABLET PO SCH ×2 (08:31→21:18)
[2021-05-03] MEDS: APIXABAN 5 MG TABLET PO SCH ×2 (08:32→21:18)
[2021-05-03] MEDS: MULTIVITAMIN W/MINERALS TABLET PO SCH (08:32)
[2021-05-03] MEDS: polyethylene glycoL 3350 17 GM PACKET PO SCH (09:50)
[2021-05-03] MEDS: HYDROmorphone 0.5 MG/0.5 ML SYRINGE IVP PRN (17:34)
[2021-05-03] MEDS: ATORVASTATIN 40 MG TABLET PO SCH (21:18)
[2021-05-04] MEDS: SODIUM CHLORIDE 0.9% 1,000 ML IV SCH ×4 (04:56→20:31)
[2021-05-04] MEDS: SODIUM CHLORIDE FLUSH 0.9% 10 ML SYRINGE IVP SCH ×3 (04:57→18:29)
[2021-05-04 05:02] LABS: BASOPHILS # (AUTO) 0.1 10^3/uL (0.0-0.1); BASOPHILS % (AUTO) 0.6 %; EOSINOPHILS # (AUTO) 0.1 10^3/uL (0.0-0.7); EOSINOPHILS % (AUTO) 1.1 %; HCT - HEMATOCRIT 27.8 % (42.0-52.0); HGB - HEMOGLOBIN 9.1 g/dL (14.0-18.0); LYMPHOCYTES # (AUTO) 1.6 10^3/uL (1.5-3.5); LYMPHOCYTES % (AUTO) 19.3 %; MEAN CORPUSCULAR HEMOGLOBIN 29.6 pg (27.0-31.0); MEAN CORPUSCULAR HGB CONC 32.7 g/dL (32.0-36.0); MEAN CORPUSCULAR VOLUME 90.6 fL (80.0-94.0); MEAN PLATELET VOLUME 9.4 fL (7.4-11.4); MONOCYTES # (AUTO) 0.6 10^3/uL (0.0-1.0); MONOCYTES % (AUTO) 6.8 %; NEUTROPHILS # (AUTO) 5.9 10^3/uL (1.5-6.6); NEUTROPHILS % (AUTO) 71.8 %; PLT - PLATELET COUNT 289 10^3/uL (130-450); RED BLOOD COUNT 3.07 10^6/uL (4.70-6.10); RED CELL DISTRIBUTION WIDTH 13.2 % (12.0-15.0); WHITE BLOOD COUNT 8.2 x10^3/uL (4.8-10.8)
[2021-05-04 05:10] LABS: CALCIUM 8.3 mg/dL (8.5-10.3); CREATININE 0.9 mg/dL (0.6-1.2); POTASSIUM 3.6 mmol/L (3.5-5.0)
[2021-05-04] MEDS: polyethylene glycoL 3350 17 GM PACKET PO SCH (08:05)
[2021-05-04] MEDS: carvediloL 3.125 MG TABLET PO SCH ×2 (08:06→21:52)
[2021-05-04] MEDS: OXcarbazepine 150 MG TABLET PO SCH ×2 (08:06→21:53)
[2021-05-04] MEDS: FINASTERIDE 5 MG TABLET PO SCH ×2 (08:07→21:53)
[2021-05-04] MEDS: levETIRAcetam 500 MG/5 ML UDC PO SCH ×2 (08:07→21:52)
[2021-05-04] MEDS: lisinopriL 20 MG TABLET PO SCH (08:07)
[2021-05-04] MEDS: MULTIVITAMIN W/MINERALS TABLET PO SCH (08:07)
[2021-05-04] MEDS: APIXABAN 5 MG TABLET PO SCH ×2 (08:07→21:52)
[2021-05-04] MEDS: TAMSULOSIN 0.4 MG CAPSULE PO SCH (08:07)
[2021-05-04] MEDS: DOCUSATE SODIUM 250 MG CAPSULE PO SCH (08:23)
[2021-05-04] MEDS: SENNA 8.6 MG TABLET PO SCH (08:23)
--- NOTE | 2021-05-04 09:01 | PROVIDER PROGRESS NOTE ---
Assessment/Plan - Problem List (1) Seizure as late effect of cerebrovascular accident (CVA) Assessment/Plan: 05/04/21 No seizures in 3 days Continue Trileptal 600mg po bid Continue Keppra 1000mg po bid 05/03/21 No seizures in 36 hrs Continue Trileptal 600mg po bid Continue Keppra 1000mg po bid 05/02/21 Patient had 2 episodes of seizures last night Started on Trileptal 450mg po bid yesterday evening per Dr Mar's recommendation Trileptal increased to 600mg po bid tonight 05/01/21 I placed a call to his neulogist's Dr Mar and left a messaging Requesting recommendation for a substitute to Vimpat. Awaiting input 04/30/21 Neurologist at [facility] epilepsy clinic was contacted yesterday. Dr. Lal recommended increasing patient's Keppra to 1000 mg twice daily. This was done. Vimpat 100 mg p.o. twice daily was also ordered. The patient has been on Vimpat previously but had to discontinue it due to the cost. The patient's was unable to fill this due to cost. Lorazepam 1 mg IV push every 2 hours as needed for twitches or seizure. (2) Afib Assessment/Plan: Eliquis 5 mg p.o. twice daily Coreg 3.125 mg p.o. twice daily (3) BPH (benign prostatic hyperplasia) Assessment/Plan: Tamsulosin 0.4 mg p.o. daily. The patient had a UTI for which he was treated with Cipro and completed antibiotics. (4) Delirium Assessment/Plan: Patient has been off restraint for 3 days now Continues to have some 1:1 observation No episodes of agitation in 3 days Plan: White cell count is normal, no fever, and anticipate that he will gradually recover. His lets us know that it took him 3 months to recover from the last time he had a seizure in May 2020. - Current Meds Current Meds: Current Medications Generic Name Dose Route Start Last Admin Trade Name Freq PRN Reason Stop Dose Admin Acetaminophen 1,000 mg 04/16/21 15:44 05/02/21 06:59 Acetaminophen 500 Mg Tablet PO 1,000 mg Q6H PRN Administration Pain or Fever > 38C (100.4F) Apixaban 5 mg 04/27/21:00 05/04/21 08:07 Apixaban 5 Mg Tablet PO 5 mg BID PHAN Administration Atorvastatin Calcium 40 mg 04/19/21 21:00 05/03/21 21:18 Atorvastatin 40 Mg Tablet PO 40 mg QPM PHAN Administration Carvedilol 3.125 mg 04/19/21 12:00 05/04/21 08:06 Carvedilol 3.125 Mg Tablet PO 3.125 mg BID PHAN Administration Docusate Sodium 250 - 500 mg 04/16/21 09:00 05/04/21 08:23 Docusate Sodium 250 Mg Capsule PO Not Given DAILY PHAN Finasteride 5 mg 04/17/21 21:00 05/04/21 08:07 Finasteride 5 Mg Tablet PO 5 mg BID PHAN Administration Hydromorphone HCl 0.5 mg 04/25/21 15:10 05/03/21 17:34 Hydromorphone 0.5 Mg/0.5 Ml Syringe IVP 0.5 mg Q2H PRN Administration PAIN Sodium Chloride 1,000 mls @ 125 mls/hr 04/22/21 21:00 05/04/21 08:22 Normal Saline 0.9% IV Not Given .Q8H PHAN Levetiracetam 1,000 mg 05/02/21 21:00 05/04/21 08:07 Levetiracetam 500 Mg/5 Ml Udc PO 250 mg BID PHAN Administration Lisinopril 20 mg 04/20/21 09:00 05/04/21 08:07 Lisinopril 20 Mg Tablet PO 20 mg DAILY PHAN Administration Multivitamins/Minerals 1 tab 04/18/21 12:00 05/04/21 08:07 Multivitamin W/Minerals Tablet PO 1 tab DAILYWM PHAN Administration Ondansetron HCl 4 mg 04/13/21 17:14 04/19/21 18:02 Ondansetron 4 Mg/2 Ml Vial IVP 4 mg Q6HR PRN Administration Nausea / Vomiting Oxcarbazepine 600 mg 05/02/21 21:00 05/04/21 08:06 Oxcarbazepine 150 Mg Tablet PO 600 mg BID PHAN Administration Polyethylene Glycol 17 gm 04/16/21 09:00 05/04/21 08:05 Polyethylene Glycol 3350 17 Gm Packet PO 17 gm DAILY PHAN Administration Senna 8.6 - 17.2 mg 04/16/21 09:00 05/04/21 08:23 Senna 8.6 Mg Tablet PO Not Given DAILY PHAN Sodium Chloride 10 ml 04/13/21 17:14 05/01/21 19:54 Sodium Chloride Flush 0.9% 10 Ml Syringe IVP 10 ml PRN PRN Administration NEEDED PER PROVIDER ORDERS Sodium Chloride 10 ml 04/14/21 01:00 05/04/21 08:07 Sodium Chloride Flush 0.9% 10 Ml Syringe IVP Not Given 0100,0900,1700 PHAN Tamsulosin HCl 0.4 mg 04/14/21 09:00 05/04/21 08:07 Tamsulosin 0.4 Mg Capsule PO 0.4 mg DAILY PHAN Administration - Lab Result Fish Bone Diagrams: 05/04/21 04:40 05/04/21 04:40 - Additional Planning My Orders: My Active Orders 05/05/21 05:00 BMP - BASIC METABOLIC PANEL [CHEM] DAILYLAB CBC - COMP BLD CT W/AUTO DIFF [HEME] DAILYLAB 05/06/21 05:00 BMP - BASIC METABOLIC PANEL [CHEM] DAILYLAB CBC - COMP BLD CT W/AUTO DIFF [HEME] DAILYLAB 05/07/21 05:00 BMP - BASIC METABOLIC PANEL [CHEM] DAILYLAB CBC - COMP BLD CT W/AUTO DIFF [HEME] DAILYLAB Subjective - Subjective Patient Reports: Other (Patient was very much awak, alert and oriented X3 today. Patient was very intelligible. He expressed dislike for the taste of oral Keppra and requested IV administration instead. Further explaining how he had been successfully treated at [facility] in the past.) Objective Vital Signs: Vital Signs - 24 hr 05/03/21 05/04/21 05/04/21 15:52 05:47 07:26 Temperature 36.9 C 36.8 C 36.7 C Heart Rate [ 82 85 77 Brachial] Respiratory 18 20 17 Rate Blood Pressure 131/62 H 154/75 H 139/75 H [Right Brachial artery] O2 Saturation 98 96 97 Oxygen O2 Source Room air I&O (Last 24 Hrs): Intake and Output Totals x24h 05/02/21 05/03/21 05/04/21 23:59 23:59 23:59 Intake Total 2580 3482.083 1056.25 Output Total 1975 3025 1000 Balance 605 457.083 56.25 General: Alert, Oriented x3, No acute distress HEENT: Atraumatic, PERRLA Neck: Supple, No JVD Neuro: Alert, Focal Deficits (left upper extremity weakness), Oriented Times 3 Cardiovascular: Other (Irregular rhythm, regular rate.) Respiratory: Chest non-tender, No respiratory distress, Breath sounds nml Abdomen: Normal bowel sounds, Soft Extremities: No clubbing, No cyanosis, No edema, No tenderness/swelling Skin: No rashes, No breakdown - Results Results: Laboratory Results WBC 8.2 x10^3/uL (4.8-10.8) 05/04/21 04:40 RBC 3.07 10^6/uL (4.70-6.10) L 05/04/21 04:40 Hgb 9.1 g/dL (14.0-18.0) L 05/04/21 04:40 Hct 27.8 % (42.0-52.0) L 05/04/21 04:40 MCV 90.6 fL (80.0-94.0) 05/04/21 04:40 MCH 29.6 pg (27.0-31.0) 05/04/21 04:40 MCHC 32.7 g/dL (32.0-36.0) 05/04/21 04:40 RDW 13.2 % (12.0-15.0) 05/04/21 04:40 Plt Count 289 10^3/uL (130-450) 05/04/21 04:40 MPV 9.4 fL (7.4-11.4) 05/04/21 04:40 Neut # (Auto) 5.9 10^3/uL (1.5-6.6) 05/04/21 04:40 Lymph # (Auto) 1.6 10^3/uL (1.5-3.5) 05/04/21 04:40 [place] # (Auto) 0.6 10^3/uL (0.0-1.0) 05/04/21 04:40 Eos # (Auto) 0.1 10^3/uL (0.0-0.7) 05/04/21 04:40 Baso # (Auto) 0.1 10^3/uL (0.0-0.1) 05/04/21 04:40 Absolute Nucleated RBC 0.00 x10^3/uL 05/04/21 04:40 Total Counted 100 04/22/21 10:26 Band Neuts % (Manual) 1 % (0-10) 04/22/21 10:26 Abnorm Lymph % (Manual) 0 % 04/22/21 10:26 Nucleated RBC % 0.0 /100WBC 05/04/21 04:40 Neutrophils # (Manual) 37.9 10^3/uL (1.5-6.6) H 04/22/21 10:26 Lymphocytes # (Manual) 0.0 10^3/uL (1.5-3.5) L 04/22/21 10:26 Monocytes # (Manual) 0.8 10^3/uL (0.0-1.0) 04/22/21 10:26 Eosinophils # (Manual) 0.0 10^3/uL (0-0.7) 04/22/21 10:26 Basophils # (Manual) 0.0 10^3/uL (0-0.1) 04/22/21 10:26 Differential Comment MANUAL DIFFERENTIAL 04/22/21 10:26 WBC Morphology NORMAL APPEARANCE (NORMAL) 04/22/21 04:40 Platelet Estimate NORMAL (130-450,000) (NORMAL) 04/22/21 10:26 Platelet Morphology NORMAL APPEARANCE (NORMAL) 04/22/21 10:26 RBC Morph Micro Appear NORMAL APPEARANCE (NORMAL) 04/22/21 10:26 Sodium 138 mmol/L (135-145) 05/04/21 04:40 Potassium 3.6 mmol/L (3.5-5.0) 05/04/21 04:40 Chloride 105 mmol/L (101-111) 05/04/21 04:40 Carbon Dioxide 21 mmol/L (21-32) 05/04/21 04:40 Anion Gap 12.0 (6-13) 05/04/21 04:40 BUN 13 mg/dL (6-20) 05/04/21 04:40 Creatinine 0.9 mg/dL (0.6-1.2) 05/04/21 04:40 Estimated GFR (MDRD) 81 (>89) L 05/04/21 04:40 Glucose 96 mg/dL (70-100) 05/04/21 04:40 POC Whole Bld Glucose 128 mg/dL (70 - 100) H 04/28/21 10:17 Calcium 8.3 mg/dL (8.5-10.3) L 05/04/21 04:40 Magnesium 1.9 mg/dL (1.7-2.8) 05/03/21 04:27 Total Bilirubin 0.8 mg/dL (0.2-1.0) 04/13/21 13:10 AST 14 IU/L (10-42) 04/13/21 13:10 ALT 12 IU/L (10-60) 04/13/21 13:10 Alkaline Phosphatase 92 IU/L (42-121) 04/13/21 13:10 Troponin I High Sens 7.5 ng/L (2.3-19.7) 05/02/21 07:38 Total Protein 6.4 g/dL (6.7-8.2) L 04/13/21 13:10 Albumin 3.8 g/dL (3.2-5.5) 04/13/21 13:10 Globulin 2.6 g/dL (2.1-4.2) 04/13/21 13:10 Albumin/Globulin Ratio 1.5 (1.0-2.2) 04/13/21 13:10 Urine Color DARK YELLOW 04/22/21 12:01 Urine Clarity HAZY (CLEAR) 04/22/21 12:01 Urine pH 5.0 PH (5.0-7.5) 04/22/21 12:01 Ur Specific [place] >=1.030 (1.002-1.030) H 04/22/21 12:01 Urine Protein 30 mg/dL (NEGATIVE) H 04/22/21 12:01 Urine Glucose (UA) NEGATIVE mg/dL (NEGATIVE) 04/22/21 12:01 Urine Ketones TRACE mg/dL (NEGATIVE) 04/22/21 12:01 Urine Occult Blood LARGE (NEGATIVE) H 04/22/21 12:01 Urine Nitrite POSITIVE (NEGATIVE) H 04/22/21 12:01 Urine Bilirubin SMALL (NEGATIVE) H 04/22/21 12:01 Urine Urobilinogen 1 (NORMAL) E.U./dL (NORMAL) 04/22/21 12:01 Ur Leukocyte Esterase SMALL (NEGATIVE) H 04/22/21 12:01 Urine RBC TNTC /HPF (0-5) H 04/22/21 12:01 Urine WBC >25 /HPF (0-3) H 04/22/21 12:01 Ur Squamous Epith Cells RARE Squamous (<= Few) 04/22/21 12:01 Amorphous Sediment Few /LPF 04/15/21 11:50 Urine Bacteria Moderate /HPF (None Seen) H 04/22/21 12:01 Urine Mucus Moderate Strands 04/22/21 12:01 Urine Culture Comments INDICATED 04/22/21 12:01 Nasal Adenovirus (PCR) NOT DETECTED 04/13/21 16:48 Nasal B. parapertussis DNA (PCR) NOT DETECTED 04/13/21 16:48 Nasal Coronavir 229E PCR NOT DETECTED 04/13/21 16:48 Nasal Coronavir HKU1 PCR NOT DETECTED 04/13/21 16:48 Nasal Coronavir NL63 PCR NOT DETECTED 04/13/21 16:48 Nasal Coronavir OC43 PCR NOT DETECTED 04/13/21 16:48 Nasal Enterovir/Rhinovir PCR NOT DETECTED 04/13/21 16:48 Nasal Influenza B PCR NOT DETECTED 04/13/21 16:48 Nasal Influenza A PCR NOT DETECTED 04/13/21 16:48 Nasal Parainfluen 1 PCR NOT DETECTED 04/13/21 16:48 Nasal Parainfluen 2 PCR NOT DETECTED 04/13/21 16:48 Nasal Parainfluen 3 PCR NOT DETECTED 04/13/21 16:48 Nasal Parainfluen 4 PCR NOT DETECTED 04/13/21 16:48 Nasal RSV (PCR) NOT DETECTED 04/13/21 16:48 Nasal B.pertussis DNA PCR NOT DETECTED 04/13/21 16:48 Nasal C.pneumoniae (PCR) NOT DETECTED 04/13/21 16:48 Mian Human Metapneumo PCR NOT DETECTED 04/13/21 16:48 Nasal M.pneumoniae (PCR) NOT DETECTED 04/13/21 16:48 Nasal SARS-CoV-2 (PCR) NOT DETECTED 04/13/21 16:48 Levetiracetam 28.3 mcg/mL 04/25/21 12:24 Ethyl Alcohol < 5.0 mg/dL 04/13/21 13:10 ABX Reporting Has patient been on IV antibiotics over the past 48 hours?: No
[2021-05-04] MEDS: HYDROmorphone 0.5 MG/0.5 ML SYRINGE IVP PRN ×2 (17:28→19:31)
[2021-05-04] MEDS: ATORVASTATIN 40 MG TABLET PO SCH (21:52)
[2021-05-05] MEDS: SODIUM CHLORIDE 0.9% 1,000 ML IV SCH ×3 (03:51→20:21)
[2021-05-05] MEDS: HYDROmorphone 0.5 MG/0.5 ML SYRINGE IVP PRN (03:51)
[2021-05-05 04:32] LABS: BASOPHILS # (AUTO) 0.1 10^3/uL (0.0-0.1); BASOPHILS % (AUTO) 0.6 %; EOSINOPHILS # (AUTO) 0.1 10^3/uL (0.0-0.7); EOSINOPHILS % (AUTO) 0.8 %; HCT - HEMATOCRIT 29.6 % (42.0-52.0); HGB - HEMOGLOBIN 9.8 g/dL (14.0-18.0); LYMPHOCYTES # (AUTO) 1.5 10^3/uL (1.5-3.5); LYMPHOCYTES % (AUTO) 17.2 %; MEAN CORPUSCULAR HEMOGLOBIN 29.7 pg (27.0-31.0); MEAN CORPUSCULAR HGB CONC 33.1 g/dL (32.0-36.0); MEAN CORPUSCULAR VOLUME 89.7 fL (80.0-94.0); MEAN PLATELET VOLUME 9.3 fL (7.4-11.4); MONOCYTES # (AUTO) 0.6 10^3/uL (0.0-1.0); MONOCYTES % (AUTO) 7.2 %; NEUTROPHILS # (AUTO) 6.3 10^3/uL (1.5-6.6); NEUTROPHILS % (AUTO) 73.9 %; PLT - PLATELET COUNT 316 10^3/uL (130-450); WHITE BLOOD COUNT 8.6 x10^3/uL (4.8-10.8)
[2021-05-05 04:39] LABS: CALCIUM 8.4 mg/dL (8.5-10.3); CREATININE 0.7 mg/dL (0.6-1.2); POTASSIUM 3.5 mmol/L (3.5-5.0)
[2021-05-05] MEDS: SODIUM CHLORIDE FLUSH 0.9% 10 ML SYRINGE IVP SCH ×3 (05:55→18:15)
--- NOTE | 2021-05-05 08:05 | PROVIDER PROGRESS NOTE ---
Assessment/Plan - Problem List (1) Seizure as late effect of cerebrovascular accident (CVA) Assessment/Plan: 05/05/21 No seizures in 4 days Continues to be very alert, awake and oriented X3. Moving all extremities well. Continue Trileptal 600mg po bid Continue Keppra 1000mg po bid 05/04/21 No seizures in 3 days Continue Trileptal 600mg po bid Continue Keppra 1000mg po bid 05/03/21 No seizures in 36 hrs Continue Trileptal 600mg po bid Continue Keppra 1000mg po bid 05/02/21 Patient had 2 episodes of seizures last night Started on Trileptal 450mg po bid yesterday evening per Dr Mar's recommendation Trileptal increased to 600mg po bid tonight 05/01/21 I placed a call to his neulogist's Dr Mar and left a messaging Requesting recommendation for a substitute to Vimpat. Awaiting input 04/30/21 Neurologist at [facility] epilepsy clinic was contacted yesterday. Dr. Lal recommended increasing patient's Keppra to 1000 mg twice daily. This was done. Vimpat 100 mg p.o. twice daily was also ordered. The patient has been on Vimpat previously but had to discontinue it due to the cost. The patient's was unable to fill this due to cost. Lorazepam 1 mg IV push every 2 hours as needed for twitches or seizure. (2) Afib Assessment/Plan: Eliquis 5 mg p.o. twice daily Coreg 3.125 mg p.o. twice daily (3) BPH (benign prostatic hyperplasia) Assessment/Plan: Tamsulosin 0.4 mg p.o. daily. The patient had a UTI for which he was treated with Cipro and completed antibiotics. (4) Delirium Assessment/Plan: Patient has been off restraint for 5 days now Continues to have some 1:1 observation No episodes of agitation in 5 days Plan: White cell count is normal, no fever, and anticipate that he will gradually recover. His lets us know that it took him 3 months to recover from the last time he had a seizure in May 2020. - Current Meds Current Meds: Current Medications Generic Name Dose Route Start Last Admin Trade Name Freq PRN Reason Stop Dose Admin Acetaminophen 1,000 mg 04/16/21 15:44 05/02/21 06:59 Acetaminophen 500 Mg Tablet PO 1,000 mg Q6H PRN Administration Pain or Fever > 38C (100.4F) Apixaban 5 mg 04/27/21 21:00 05/04/21 21:52 Apixaban 5 Mg Tablet PO 5 mg BID PHAN Administration Atorvastatin Calcium 40 mg 04/19/21 21:00 05/04/21 21:52 Atorvastatin 40 Mg Tablet PO 40 mg QPM PHAN Administration Carvedilol 3.125 mg 04/19/21 12:00 05/04/21 21:52 Carvedilol 3.125 Mg Tablet PO 3.125 mg BID PHAN Administration Docusate Sodium 250 - 500 mg 04/16/21 09:00 05/04/21 08:23 Docusate Sodium 250 Mg Capsule PO Not Given DAILY PHAN Finasteride 5 mg 04/17/21 21:00 05/04/21 21:53 Finasteride 5 Mg Tablet PO 5 mg BID PHAN Administration Hydromorphone HCl 0.5 mg 04/25/21 15:10 05/05/21 03:51 Hydromorphone 0.5 Mg/0.5 Ml Syringe IVP 0.5 mg Q2H PRN Administration PAIN Sodium Chloride 1,000 mls @ 125 mls/hr 04/22/21 21:00 05/05/21 03:51 Normal Saline 0.9% IV 125 mls/hr .Q8H PHAN Administration Levetiracetam 1,000 mg 05/02/21 21:00 05/04/21 21:52 Levetiracetam 500 Mg/5 Ml Udc PO 1,000 mg BID PHAN Administration Lisinopril 20 mg 04/20/21 09:00 05/04/21 08:07 Lisinopril 20 Mg Tablet PO 20 mg DAILY PHAN Administration Multivitamins/Minerals 1 tab 04/18/21 12:00 05/04/21 08:07 Multivitamin W/Minerals Tablet PO 1 tab DAILYWM PHAN Administration Ondansetron HCl 4 mg 04/13/21 17:14 04/19/21 18:02 Ondansetron 4 Mg/2 Ml Vial IVP 4 mg Q6HR PRN Administration Nausea / Vomiting Oxcarbazepine 600 mg 05/02/21 21:00 05/04/21 21:53 Oxcarbazepine 150 Mg Tablet PO 600 mg BID PHAN Administration Polyethylene Glycol 17 gm 04/16/21 09:00 05/04/21 08:05 Polyethylene Glycol 3350 17 Gm Packet PO 17 gm DAILY PHAN Administration Senna 8.6 - 17.2 mg 04/16/21 09:00 05/04/21 08:23 Senna 8.6 Mg Tablet PO Not Given DAILY PHAN Sodium Chloride 10 ml 04/13/21 17:14 05/01/21 19:54 Sodium Chloride Flush 0.9% 10 Ml Syringe IVP 10 ml PRN PRN Administration NEEDED PER PROVIDER ORDERS Sodium Chloride 10 ml 04/14/21 01:00 05/05/21 05:55 Sodium Chloride Flush 0.9% 10 Ml Syringe IVP Not Given 0100,0900,1700 PHAN Tamsulosin HCl 0.4 mg 04/14/21 09:00 05/04/21 08:07 Tamsulosin 0.4 Mg Capsule PO 0.4 mg DAILY PHAN Administration - Lab Result Fish Bone Diagrams: 05/05/21 04:08 05/05/21 04:08 - Additional Planning My Orders: My Active Orders 05/06/21 05:00 BMP - BASIC METABOLIC PANEL [CHEM] DAILYLAB CBC - COMP BLD CT W/AUTO DIFF [HEME] DAILYLAB 05/07/21 05:00 BMP - BASIC METABOLIC PANEL [CHEM] DAILYLAB CBC - COMP BLD CT W/AUTO DIFF [HEME] DAILYLAB Subjective - Subjective Patient Reports: Other (Continues to be awake and alert for 3 consegative days. Tolerated taking his oral medications. Moving all extremities today.) Objective Vital Signs: Vital Signs - 24 hr 05/04/21 05/04/21 05/05/21 16:00 23:42 07:37 Temperature 36.7 C 36.6 C 36.6 C Heart Rate [ 76 76 77 Brachial] Respiratory 16 20 19 Rate Blood Pressure 130/60 153/82 H 149/77 H [Right Brachial artery] O2 Saturation 98 99 98 Oxygen O2 Source Room air I&O (Last 24 Hrs): Intake and Output Totals x24h 05/03/21 05/04/21 05/05/21 23:59 23:59 23:59 Intake Total 3482.083 3144.167 916.667 Output Total 3025 2950 600 Balance 457.083 194.167 316.667 General: Alert, Oriented x3, No acute distress HEENT: Atraumatic, PERRLA, EOMI Neck: Supple, No JVD Neuro: Alert, Non Focal, Oriented Times 3 Cardiovascular: Other (Irregular rhythm, regular rate.) Respiratory: Chest non-tender, No respiratory distress, Breath sounds nml Abdomen: Normal bowel sounds, Soft Extremities: No clubbing, No cyanosis, No edema, No tenderness/swelling Skin: No rashes, No breakdown - Results Results: Laboratory Results WBC 8.6 x10^3/uL (4.8-10.8) 05/05/21 04:08 RBC 3.30 10^6/uL (4.70-6.10) L 05/05/21 04:08 Hgb 9.8 g/dL (14.0-18.0) L 05/05/21 04:08 Hct 29.6 % (42.0-52.0) L 05/05/21 04:08 MCV 89.7 fL (80.0-94.0) 05/05/21 04:08 MCH 29.7 pg (27.0-31.0) 05/05/21 04:08 MCHC 33.1 g/dL (32.0-36.0) 05/05/21 04:08 RDW 13.0 % (12.0-15.0) 05/05/21 04:08 Plt Count 316 10^3/uL (130-450) 05/05/21 04:08 MPV 9.3 fL (7.4-11.4) 05/05/21 04:08 Neut # (Auto) 6.3 10^3/uL (1.5-6.6) 05/05/21 04:08 Lymph # (Auto) 1.5 10^3/uL (1.5-3.5) 05/05/21 04:08 [place] # (Auto) 0.6 10^3/uL (0.0-1.0) 05/05/21 04:08 Eos # (Auto) 0.1 10^3/uL (0.0-0.7) 05/05/21 04:08 Baso # (Auto) 0.1 10^3/uL (0.0-0.1) 05/05/21 04:08 Absolute Nucleated RBC 0.00 x10^3/uL 05/05/21 04:08 Total Counted 100 04/22/21 10:26 Band Neuts % (Manual) 1 % (0-10) 04/22/21 10:26 Abnorm Lymph % (Manual) 0 % 04/22/21 10: Nucleated RBC % 0.0 /100WBC 05/05/21 04:08 Neutrophils # (Manual) 37.9 10^3/uL (1.5-6.6) H 04/22/21 10:26 Lymphocytes # (Manual) 0.0 10^3/uL (1.5-3.5) L 04/22/21 10:26 Monocytes # (Manual) 0.8 10^3/uL (0.0-1.0) 04/22/21 10:26 Eosinophils # (Manual) 0.0 10^3/uL (0-0.7) 04/22/21 10:26 Basophils # (Manual) 0.0 10^3/uL (0-0.1) 04/22/21 10:26 Differential Comment MANUAL DIFFERENTIAL 04/22/21 10:26 WBC Morphology NORMAL APPEARANCE (NORMAL) 04/22/21 04:40 Platelet Estimate NORMAL (130-450,000) (NORMAL) 04/22/21 10:26 Platelet Morphology NORMAL APPEARANCE (NORMAL) 04/22/21 10:26 RBC Morph Micro Appear NORMAL APPEARANCE (NORMAL) 04/22/21 10:26 Sodium 136 mmol/L (135-145) 05/05/21 04:08 Potassium 3.5 mmol/L (3.5-5.0) 05/05/21 04:08 Chloride 105 mmol/L (101-111) 05/05/21 04:08 Carbon Dioxide 24 mmol/L (21-32) 05/05/21 04:08 Anion Gap 7.0 (6-13) 05/05/21 04:08 BUN 13 mg/dL (6-20) 05/05/21 04:08 Creatinine 0.7 mg/dL (0.6-1.2) 05/05/21 04:08 Estimated GFR (MDRD) 108 (>89) 05/05/21 04:08 Glucose 111 mg/dL (70-100) H 05/05/21 04:08 POC Whole Bld Glucose 128 mg/dL (70 - 100) H 04/28/21 10:17 Calcium 8.4 mg/dL (8.5-10.3) L 05/05/21 04:08 Magnesium 1.9 mg/dL (1.7-2.8) 05/03/21 04:27 Total Bilirubin 0.8 mg/dL (0.2-1.0) 04/13/21 13:10 AST 14 IU/L (10-42) 04/13/21 13:10 ALT 12 IU/L (10-60) 04/13/21 13:10 Alkaline Phosphatase 92 IU/L (42-121) 04/13/21 13:10 Troponin I High Sens 7.5 ng/L (2.3-19.7) 05/02/21 07:38 Total Protein 6.4 g/dL (6.7-8.2) L 04/13/21 13:10 Albumin 3.8 g/dL (3.2-5.5) 04/13/21 13:10 Globulin 2.6 g/dL (2.1-4.2) 04/13/21 13:10 Albumin/Globulin Ratio 1.5 (1.0-2.2) 04/13/21 13:10 Urine Color DARK YELLOW 04/22/21 12:01 Urine Clarity HAZY (CLEAR) 04/22/21 12:01 Urine pH 5.0 PH (5.0-7.5) 04/22/21 12:01 Ur Specific [place] >=1.030 (1.002-1.030) H 04/22/21 12:01 Urine Protein 30 mg/dL (NEGATIVE) H 04/22/21 12:01 Urine Glucose (UA) NEGATIVE mg/dL (NEGATIVE) 04/22/21 12:01 Urine Ketones TRACE mg/dL (NEGATIVE) 04/22/21 12:01 Urine Occult Blood LARGE (NEGATIVE) H 04/22/21 12:01 Urine Nitrite POSITIVE (NEGATIVE) H 04/22/21 12:01 Urine Bilirubin SMALL (NEGATIVE) H 04/22/21 12:01 Urine Urobilinogen 1 (NORMAL) E.U./dL (NORMAL) 04/22/21 12:01 Ur Leukocyte Esterase SMALL (NEGATIVE) H 04/22/21 12:01 Urine RBC TNTC /HPF (0-5) H 04/22/21 12:01 Urine WBC >25 /HPF (0-3) H 04/22/21 12:01 Ur Squamous Epith Cells RARE Squamous (<= Few) 04/22/21 12:01 Amorphous Sediment Few /LPF 04/15/21 11:50 Urine Bacteria Moderate /HPF (None Seen) H 04/22/21 12:01 Urine Mucus Moderate Strands 04/22/21 12:01 Urine Culture Comments INDICATED 04/22/21 12:01 Nasal Adenovirus (PCR) NOT DETECTED 04/13/21 16:48 Nasal B. parapertussis DNA (PCR) NOT DETECTED 04/13/21 16:48 Nasal Coronavir 229E PCR NOT DETECTED 04/13/21 16:48 Nasal Coronavir HKU1 PCR NOT DETECTED 04/13/21 16:48 Nasal Coronavir NL63 PCR NOT DETECTED 04/13/21 16:48 Nasal Coronavir OC43 PCR NOT DETECTED 04/13/21 16:48 Nasal Enterovir/Rhinovir PCR NOT DETECTED 04/13/21 16:48 Nasal Influenza B PCR NOT DETECTED 04/13/21 16:48 Nasal Influenza A PCR NOT DETECTED 04/13/21 16:48 Nasal Parainfluen 1 PCR NOT DETECTED 04/13/21 16:48 Nasal Parainfluen 2 PCR NOT DETECTED 04/13/21 16:48 Nasal Parainfluen 3 PCR NOT DETECTED 04/13/21 16:48 Nasal Parainfluen 4 PCR NOT DETECTED 04/13/21 16:48 Nasal RSV (PCR) NOT DETECTED 04/13/21 16:48 Nasal B.pertussis DNA PCR NOT DETECTED 04/13/21 16:48 Nasal C.pneumoniae (PCR) NOT DETECTED 04/13/21 16:48 Mian Human Metapneumo PCR NOT DETECTED 04/13/21 16:48 Nasal M.pneumoniae (PCR) NOT DETECTED 04/13/21 16:48 Nasal SARS-CoV-2 (PCR) NOT DETECTED 04/13/21 16:48 Levetiracetam 28.3 mcg/mL 04/25/21 12:24 Ethyl Alcohol < 5.0 mg/dL 04/13/21 13:10 ABX Reporting Has patient been on IV antibiotics over the past 48 hours?: No
[2021-05-05] MEDS: OXcarbazepine 150 MG TABLET PO SCH ×2 (08:29→20:21)
[2021-05-05] MEDS: TAMSULOSIN 0.4 MG CAPSULE PO SCH (08:29)
[2021-05-05] MEDS: levETIRAcetam 500 MG/5 ML UDC PO SCH (08:30)
[2021-05-05] MEDS: SENNA 8.6 MG TABLET PO SCH (08:30)
[2021-05-05] MEDS: FINASTERIDE 5 MG TABLET PO SCH ×2 (08:30→20:21)
[2021-05-05] MEDS: lisinopriL 20 MG TABLET PO SCH (08:30)
[2021-05-05] MEDS: carvediloL 3.125 MG TABLET PO SCH ×2 (08:30→20:20)
[2021-05-05] MEDS: MULTIVITAMIN W/MINERALS TABLET PO SCH (08:30)
[2021-05-05] MEDS: APIXABAN 5 MG TABLET PO SCH ×2 (08:30→20:21)
[2021-05-05] MEDS: DOCUSATE SODIUM 250 MG CAPSULE PO SCH (08:31)
[2021-05-05] MEDS: polyethylene glycoL 3350 17 GM PACKET PO SCH (09:30)
[2021-05-05] MEDS: ATORVASTATIN 40 MG TABLET PO SCH (20:20)
[2021-05-05] MEDS ORDERED: levETIRAcetam 500 MG/5 ML UDC PO PRN (21:28)
[2021-05-05] MEDS: levETIRAcetam 250 MG TABLET PO SCH (21:49)
[2021-05-05] MEDS ORDERED: levETIRAcetam 100 MG/ML 473ML BOTTLE PO SCH (22:00)
[2021-05-06] MEDS: SODIUM CHLORIDE 0.9% 1,000 ML IV SCH ×3 (04:11→19:58)
[2021-05-06] MEDS: SODIUM CHLORIDE FLUSH 0.9% 10 ML SYRINGE IVP SCH ×3 (04:34→17:33)
[2021-05-06 05:48] LABS: BASOPHILS % (AUTO) 0.5 %; EOSINOPHILS # (AUTO) 0.1 10^3/uL (0.0-0.7); EOSINOPHILS % (AUTO) 1.2 %; HCT - HEMATOCRIT 26.5 % (42.0-52.0); HGB - HEMOGLOBIN 8.5 g/dL (14.0-18.0); LYMPHOCYTES # (AUTO) 1.3 10^3/uL (1.5-3.5); LYMPHOCYTES % (AUTO) 16.9 %; MEAN CORPUSCULAR HEMOGLOBIN 29.2 pg (27.0-31.0); MEAN CORPUSCULAR HGB CONC 32.1 g/dL (32.0-36.0); MEAN CORPUSCULAR VOLUME 91.1 fL (80.0-94.0); MEAN PLATELET VOLUME 9.5 fL (7.4-11.4); MONOCYTES # (AUTO) 0.6 10^3/uL (0.0-1.0); MONOCYTES % (AUTO) 7.8 %; NEUTROPHILS # (AUTO) 5.5 10^3/uL (1.5-6.6); NEUTROPHILS % (AUTO) 73.2 %; PLT - PLATELET COUNT 270 10^3/uL (130-450); RED BLOOD COUNT 2.91 10^6/uL (4.70-6.10); RED CELL DISTRIBUTION WIDTH 13.2 % (12.0-15.0); WHITE BLOOD COUNT 7.5 x10^3/uL (4.8-10.8)
[2021-05-06 05:56] LABS: CALCIUM 8.1 mg/dL (8.5-10.3); CREATININE 0.8 mg/dL (0.6-1.2); POTASSIUM 3.5 mmol/L (3.5-5.0)
--- NOTE | 2021-05-06 08:27 | PROVIDER PROGRESS NOTE ---
Assessment/Plan - Problem List (1) Seizure as late effect of cerebrovascular accident (CVA) Assessment/Plan: 05/06/21 No seizures in 5 days. However the patient was very somnolent today. As a result of this he was unable to work with physical therapy. As a result of his somnolence Trileptal was decreased to 450 mg p.o. twice daily starting the evening of 05/06/2021. This was a potential side effect to watch out for per neurology. At this point it can be said the patient is medically optimized however physical deconditioning/social issues are limiting disposition. 05/05/21 No seizures in 4 days Continues to be very alert, awake and oriented X3. Moving all extremities well. Continue Trileptal 600mg po bid Continue Keppra 1000mg po bid 05/04/21 No seizures in 3 days Continue Trileptal 600mg po bid Continue Keppra 1000mg po bid 05/03/21 No seizures in 36 hrs Continue Trileptal 600mg po bid Continue Keppra 1000mg po bid 05/02/21 Patient had 2 episodes of seizures last night Started on Trileptal 450mg po bid yesterday evening per Dr Mar's recommendation Trileptal increased to 600mg po bid tonight 05/01/21 I placed a call to his neulogist's Dr aMr and left a messaging Requesting recommendation for a substitute to Vimpat. Awaiting input 04/30/21 Neurologist at [facility] epilepsy clinic was contacted yesterday. Dr. Lal recommended increasing patient's Keppra to 1000 mg twice daily. This was done. Vimpat 100 mg p.o. twice daily was also ordered. The patient has been on Vimpat previously but had to discontinue it due to the cost. The patient's was unable to fill this due to cost. Lorazepam 1 mg IV push every 2 hours as needed for twitches or seizure. (2) Afib Assessment/Plan: Eliquis 5 mg p.o. twice daily Coreg 3.125 mg p.o. twice daily (3) BPH (benign prostatic hyperplasia) Assessment/Plan: Tamsulosin 0.4 mg p.o. daily. The patient had a UTI for which he was treated with Cipro and completed antibiotics. (4) Delirium Assessment/Plan: Patient has been off restraint for 5 days now Continues to have some 1:1 observation No episodes of agitation in 5 days Plan: White cell count is normal, no fever, and anticipate that he will gradually recover. His lets us know that it took him 3 months to recover from the last time he had a seizure in May 2020. - Current Meds Current Meds: Current Medications Generic Name Dose Route Start Last Admin Trade Name Freq PRN Reason Stop Dose Admin Acetaminophen 1,000 mg 04/16/21 15:44 05/02/21 06:59 Acetaminophen 500 Mg Tablet PO 1,000 mg Q6H PRN Administration Pain or Fever > 38C (100.4F) Apixaban 5 mg 04/27/21 21:00 05/05/21 20:21 Apixaban 5 Mg Tablet PO 5 mg BID PHAN Administration Atorvastatin Calcium 40 mg 04/19/21 21:00 05/05/21 20:20 Atorvastatin 40 Mg Tablet PO 40 mg QPM PHAN Administration Carvedilol 3.125 mg 04/19/21 12:00 05/05/21 20:20 Carvedilol 3.125 Mg Tablet PO 3.125 mg BID PHAN Administration Docusate Sodium 250 - 500 mg 04/16/21 09:00 05/05/21 08:31 Docusate Sodium 250 Mg Capsule PO Not Given DAILY PHAN Finasteride 5 mg 04/17/21 21:00 05/05/21 20:21 Finasteride 5 Mg Tablet PO 5 mg BID PHAN Administration Hydromorphone HCl 0.5 mg 04/25/21 15:10 05/05/21 03:51 Hydromorphone 0.5 Mg/0.5 Ml Syringe IVP 0.5 mg Q2H PRN Administration PAIN Sodium Chloride 1,000 mls @ 125 mls/hr 04/22/21 21:00 05/06/21 04:11 Normal Saline 0.9% IV 125 mls/hr .Q8H PHAN Administration Levetiracetam 1,000 mg 05/05/21 22:00 05/05/21 21:49 Levetiracetam 250 Mg Tablet PO 1,000 mg BID PHAN Administration Lisinopril 20 mg 04/20/21 09:00 05/05/21 08:30 Lisinopril 20 Mg Tablet PO 20 mg DAILY PHAN Administration Multivitamins/Minerals 1 tab 04/18/21 12:00 05/05/21 08:30 Multivitamin W/Minerals Tablet PO 1 tab DAILYWM PHAN Administration Ondansetron HCl 4 mg 04/13/21 17:14 04/19/21 18:02 Ondansetron 4 Mg/2 Ml Vial IVP 4 mg Q6HR PRN Administration Nausea / Vomiting Oxcarbazepine 600 mg 05/02/21 21:00 05/05/21 20:21 Oxcarbazepine 150 Mg Tablet PO 600 mg BID PHAN Administration Polyethylene Glycol 17 gm 04/16/21 09:00 05/05/21 09:30 Polyethylene Glycol 3350 17 Gm Packet PO Not Given DAILY PHAN Senna 8.6 - 17.2 mg 04/16/21 09:00 05/05/21 08:30 Senna 8.6 Mg Tablet PO Not Given DAILY PHAN Sodium Chloride 10 ml 04/13/21 17:14 05/01/21 19:54 Sodium Chloride Flush 0.9% 10 Ml Syringe IVP 10 ml PRN PRN Administration NEEDED PER PROVIDER ORDERS Sodium Chloride 10 ml 04/14/21 01:00 05/06/21 04:34 Sodium Chloride Flush 0.9% 10 Ml Syringe IVP Not Given 0100,0900,1700 PHAN Tamsulosin HCl 0.4 mg 04/14/21 09:00 05/05/21 08:29 Tamsulosin 0.4 Mg Capsule PO 0.4 mg DAILY PHAN Administration - Lab Result Fish Bone Diagrams: 05/06/21 05:26 05/06/21 05:26 - Additional Planning My Orders: My Active Orders 05/07/21 05:00 BMP - BASIC METABOLIC PANEL [CHEM] DAILYLAB CBC - COMP BLD CT W/AUTO DIFF [HEME] DAILYLAB Subjective - Subjective Patient Reports: Other (Patient was more somnolent today, thus unable to work with physical therapy. He was arousable to verbal stimuli. Upon waking up he was oriented x3.) Objective Vital Signs: Vital Signs - 24 hr 05/05/21 05/06/21 15:53 00:00 Temperature 37.2 C 36.7 C Heart Rate [ 75 82 Brachial] Respiratory 18 22 Rate Blood Pressure 129/63 135/69 H [Right Brachial artery] O2 Saturation 96 97 Oxygen O2 Source Room air I&O (Last 24 Hrs): Intake and Output Totals x24h 05/04/21 05/05/21 05/06/21 23:59 23:59 23:59 Intake Total 3144.167 3396.667 975 Output Total 2950 2625 950 Balance 194.167 771.667 25 Comments/Notes: General: Somnolent, Oriented x3, No acute distress HEENT: Atraumatic, PERRLA, EOMI Neck: Supple, No JVD Neuro: Alert, Non Focal, Oriented Times 3 Cardiovascular: Other (Irregular rhythm, regular rate.) Respiratory: Chest non-tender, No respiratory distress, Breath sounds nml Abdomen: Normal bowel sounds, Soft Extremities: No clubbing, No cyanosis, No edema, No tenderness/swelling Skin: No rashes, No breakdown - Results Results: Laboratory Results WBC 7.5 x10^3/uL (4.8-10.8) 05/06/21 05:26 RBC 2.91 10^6/uL (4.70-6.10) L 05/06/21 05:26 Hgb 8.5 g/dL (14.0-18.0) L 05/06/21 05:26 Hct 26.5 % (42.0-52.0) L 05/06/21 05:26 MCV 91.1 fL (80.0-94.0) 05/06/21 05:26 MCH 29.2 pg (27.0-31.0) 05/06/21 05:26 MCHC 32.1 g/dL (32.0-36.0) 05/06/21 05:26 RDW 13.2 % (12.0-15.0) 05/06/21 05:26 Plt Count 270 10^3/uL (130-450) 05/06/21 05:26 MPV 9.5 fL (7.4-11.4) 05/06/21 05:26 Neut # (Auto) 5.5 10^3/uL (1.5-6.6) 05/06/21 05:26 Lymph # (Auto) 1.3 10^3/uL (1.5-3.5) L 05/06/21 05:26 [place] # (Auto) 0.6 10^3/uL (0.0-1.0) 05/06/21 05:26 Eos # (Auto) 0.1 10^3/uL (0.0-0.7) 05/06/21 05:26 Baso # (Auto) 0.0 10^3/uL (0.0-0.1) 05/06/21 05:26 Absolute Nucleated RBC 0.00 x10^3/uL 05/06/21 05:26 Total Counted 100 04/22/21 10:26 Band Neuts % (Manual) 1 % (0-10) 04/22/21 10:26 Abnorm Lymph % (Manual) 0 % 04/22/21 10:26 Nucleated RBC % 0.0 /100WBC 05/06/21 05:26 Neutrophils # (Manual) 37.9 10^3/uL (1.5-6.6) H 04/22/21 10:26 Lymphocytes # (Manual) 0.0 10^3/uL (1.5-3.5) L 04/22/21 10:26 Monocytes # (Manual) 0.8 10^3/uL (0.0-1.0) 04/22/21 10:26 Eosinophils # (Manual) 0.0 10^3/uL (0-0.7) 04/22/21 10:26 Basophils # (Manual) 0.0 10^3/uL (0-0.1) 04/22/21 10:26 Differential Comment MANUAL DIFFERENTIAL 04/22/21 10:26 WBC Morphology NORMAL APPEARANCE (NORMAL) 04/22/21 04:40 Platelet Estimate NORMAL (130-450,000) (NORMAL) 04/22/21 10:26 Platelet Morphology NORMAL APPEARANCE (NORMAL) 04/22/21 10:26 RBC Morph Micro Appear NORMAL APPEARANCE (NORMAL) 04/22/21 10:26 Sodium 137 mmol/L (135-145) 05/06/21 05:26 Potassium 3.5 mmol/L (3.5-5.0) 05/06/21 05:26 Chloride 104 mmol/L (101-111) 05/06/21 05:26 Carbon Dioxide 24 mmol/L (21-32) 05/06/21 05:26 Anion Gap 9.0 (6-13) 05/06/21 05:26 BUN 10 mg/dL (6-20) 05/06/21 05:26 Creatinine 0.8 mg/dL (0.6-1.2) 05/06/21 05:26 Estimated GFR (MDRD) 93 (>89) 05/06/21 05:26 Glucose 95 mg/dL (70-100) 05/06/21 05:26 POC Whole Bld Glucose 128 mg/dL (70 - 100) H 04/28/21 10:17 Calcium 8.1 mg/dL (8.5-10.3) L 05/06/21 05:26 Magnesium 1.9 mg/dL (1.7-2.8) 05/03/21 04:27 Total Bilirubin 0.8 mg/dL (0.2-1.0) 04/13/21 13:10 AST 14 IU/L (10-42) 04/13/21 13:10 ALT 12 IU/L (10-60) 04/13/21 13:10 Alkaline Phosphatase 92 IU/L (42-121) 04/13/21 13:10 Troponin I High Sens 7.5 ng/L (2.3-19.7) 05/02/21 07:38 Total Protein 6.4 g/dL (6.7-8.2) L 04/13/21 13:10 Albumin 3.8 g/dL (3.2-5.5) 04/13/21 13:10 Globulin 2.6 g/dL (2.1-4.2) 04/13/21 13:10 Albumin/Globulin Ratio 1.5 (1.0-2.2) 04/13/21 13:10 Urine Color DARK YELLOW 04/22/21 12:01 Urine Clarity HAZY (CLEAR) 04/22/21 12:01 Urine pH 5.0 PH (5.0-7.5) 04/22/21 12:01 Ur Specific [place] >=1.030 (1.002-1.030) H 04/22/21 12:01 Urine Protein 30 mg/dL (NEGATIVE) H 04/22/21 12:01 Urine Glucose (UA) NEGATIVE mg/dL (NEGATIVE) 04/22/21 12:01 Urine Ketones TRACE mg/dL (NEGATIVE) 04/22/21 12:01 Urine Occult Blood LARGE (NEGATIVE) H 04/22/21 12:01 Urine Nitrite POSITIVE (NEGATIVE) H 04/22/21 12:01 Urine Bilirubin SMALL (NEGATIVE) H 04/22/21 12:01 Urine Urobilinogen 1 (NORMAL) E.U./dL (NORMAL) 04/22/21 12:01 Ur Leukocyte Esterase SMALL (NEGATIVE) H 04/22/21 12:01 Urine RBC TNTC /HPF (0-5) H 04/22/21 12:01 Urine WBC >25 /HPF (0-3) H 04/22/21 12:01 Ur Squamous Epith Cells RARE Squamous (<= Few) 04/22/21 12:01 Amorphous Sediment Few /LPF 04/15/21 11:50 Urine Bacteria Moderate /HPF (None Seen) H 04/22/21 12:01 Urine Mucus Moderate Strands 04/22/21 12:01 Urine Culture Comments INDICATED 04/22/21 12:01 Nasal Adenovirus (PCR) NOT DETECTED 04/13/21 16:48 Nasal B. parapertussis DNA (PCR) NOT DETECTED 04/13/21 16:48 Nasal Coronavir 229E PCR NOT DETECTED 04/13/21 16:48 Nasal Coronavir HKU1 PCR NOT DETECTED 04/13/21 16:48 Nasal Coronavir NL63 PCR NOT DETECTED 04/13/21 16:48 Nasal Coronavir OC43 PCR NOT DETECTED 04/13/21 16:48 Nasal Enterovir/Rhinovir PCR NOT DETECTED 04/13/21 16:48 Nasal Influenza B PCR NOT DETECTED 04/13/21 16:48 Nasal Influenza A PCR NOT DETECTED 04/13/21 16:48 Nasal Parainfluen 1 PCR NOT DETECTED 04/13/21 16:48 Nasal Parainfluen 2 PCR NOT DETECTED 04/13/21 16:48 Nasal Parainfluen 3 PCR NOT DETECTED 04/13/21 16:48 Nasal Parainfluen 4 PCR NOT DETECTED 04/13/21 16:48 Nasal RSV (PCR) NOT DETECTED 04/13/21 16:48 Nasal B.pertussis DNA PCR NOT DETECTED 04/13/21 16:48 Nasal C.pneumoniae (PCR) NOT DETECTED 04/13/21 16:48 Mian Human Metapneumo PCR NOT DETECTED 04/13/21 16:48 Nasal M.pneumoniae (PCR) NOT DETECTED 04/13/21 16:48 Nasal SARS-CoV-2 (PCR) NOT DETECTED 04/13/21 16:48 Levetiracetam 28.3 mcg/mL 04/25/21 12:24 Ethyl Alcohol < 5.0 mg/dL 04/13/21 13:10 ABX Reporting Has patient been on IV antibiotics over the past 48 hours?: No
[2021-05-06] MEDS: polyethylene glycoL 3350 17 GM PACKET PO SCH (08:40)
[2021-05-06] MEDS: MULTIVITAMIN W/MINERALS TABLET PO SCH (08:41)
[2021-05-06] MEDS: carvediloL 3.125 MG TABLET PO SCH ×2 (09:34→20:01)
[2021-05-06] MEDS: APIXABAN 5 MG TABLET PO SCH ×2 (09:36→20:00)
[2021-05-06] MEDS: TAMSULOSIN 0.4 MG CAPSULE PO SCH (10:45)
[2021-05-06] MEDS: levETIRAcetam 250 MG TABLET PO SCH ×2 (10:47→20:01)
[2021-05-06] MEDS: OXcarbazepine 150 MG TABLET PO SCH ×2 (10:49→20:02)
[2021-05-06] MEDS: FINASTERIDE 5 MG TABLET PO SCH ×2 (10:51→20:00)
[2021-05-06] MEDS: lisinopriL 20 MG TABLET PO SCH (10:52)
[2021-05-06] MEDS: DOCUSATE SODIUM 250 MG CAPSULE PO SCH (10:54)
[2021-05-06] MEDS: SENNA 8.6 MG TABLET PO SCH (10:55)
[2021-05-06] MEDS: ACETAMINOPHEN 500 MG TABLET PO PRN (17:30)
[2021-05-06] MEDS: HYDROmorphone 0.5 MG/0.5 ML SYRINGE IVP PRN (17:37)
[2021-05-06] MEDS: ATORVASTATIN 40 MG TABLET PO SCH (19:59)
[2021-05-07] MEDS: SODIUM CHLORIDE 0.9% 1,000 ML IV SCH ×2 (03:38→14:52)
[2021-05-07] MEDS: SODIUM CHLORIDE FLUSH 0.9% 10 ML SYRINGE IVP SCH ×3 (03:38→16:30)
[2021-05-07 05:49] LABS: BASOPHILS # (AUTO) 0.1 10^3/uL (0.0-0.1); BASOPHILS % (AUTO) 0.7 %; EOSINOPHILS # (AUTO) 0.1 10^3/uL (0.0-0.7); EOSINOPHILS % (AUTO) 1.1 %; HCT - HEMATOCRIT 25.9 % (42.0-52.0); HGB - HEMOGLOBIN 8.5 g/dL (14.0-18.0); LYMPHOCYTES # (AUTO) 1.2 10^3/uL (1.5-3.5); LYMPHOCYTES % (AUTO) 15.4 %; MEAN CORPUSCULAR HEMOGLOBIN 29.2 pg (27.0-31.0); MEAN CORPUSCULAR HGB CONC 32.8 g/dL (32.0-36.0); MEAN PLATELET VOLUME 9.1 fL (7.4-11.4); MONOCYTES # (AUTO) 0.6 10^3/uL (0.0-1.0); MONOCYTES % (AUTO) 8.5 %; NEUTROPHILS # (AUTO) 5.6 10^3/uL (1.5-6.6); PLT - PLATELET COUNT 268 10^3/uL (130-450); RED BLOOD COUNT 2.91 10^6/uL (4.70-6.10); WHITE BLOOD COUNT 7.5 x10^3/uL (4.8-10.8)
[2021-05-07 06:00] LABS: CALCIUM 8.2 mg/dL (8.5-10.3); CREATININE 0.8 mg/dL (0.6-1.2); POTASSIUM 3.3 mmol/L (3.5-5.0)
[2021-05-07] MEDS: levETIRAcetam 250 MG TABLET PO SCH ×2 (08:45→20:46)
[2021-05-07] MEDS: OXcarbazepine 150 MG TABLET PO SCH ×2 (08:45→20:45)
[2021-05-07] MEDS: FINASTERIDE 5 MG TABLET PO SCH ×2 (08:45→20:44)
[2021-05-07] MEDS: lisinopriL 20 MG TABLET PO SCH (08:45)
[2021-05-07] MEDS: carvediloL 3.125 MG TABLET PO SCH ×2 (08:45→20:44)
[2021-05-07] MEDS: TAMSULOSIN 0.4 MG CAPSULE PO SCH (08:45)
[2021-05-07] MEDS: SENNA 8.6 MG TABLET PO SCH (08:45)
[2021-05-07] MEDS: APIXABAN 5 MG TABLET PO SCH ×2 (08:45→20:45)
[2021-05-07] MEDS: polyethylene glycoL 3350 17 GM PACKET PO SCH (08:45)
[2021-05-07] MEDS: MULTIVITAMIN W/MINERALS TABLET PO SCH (08:45)
[2021-05-07] MEDS: DOCUSATE SODIUM 250 MG CAPSULE PO SCH (08:45)
--- NOTE | 2021-05-07 11:03 | PROVIDER PROGRESS NOTE ---
Subjective - Prog Note Date Prog Note Date: 05/07/21 - Subjective Subjective: He reports feeling well. Denies any pain. Knows he is at the hospital. Current Medications - Current Medications Current Medications: Active Medications Acetaminophen (Acetaminophen 500 Mg Tablet) 1,000 mg PO Q6H PRN PRN Reason: Pain or Fever > 38C (100.4F) Last Admin: 05/06/21 17:30 Dose: 1,000 mg Documented by: Apixaban (Apixaban 5 Mg Tablet) 5 mg PO BID [facility] Last Admin: 05/06/21 20:00 Dose: 5 mg Documented by: Atorvastatin Calcium (Atorvastatin 40 Mg Tablet) 40 mg PO QPM [facility] Last Admin: 05/06/21 19:59 Dose: 40 mg Documented by: Carvedilol (Carvedilol 3.125 Mg Tablet) 3.125 mg PO BID [facility] Last Admin: 05/06/21 20:01 Dose: 3.125 mg Documented by: Docusate Sodium (Docusate Sodium 250 Mg Capsule) 250 - 500 mg PO DAILY [facility] Last Admin: 05/06/21 10:54 Dose: 250 mg Documented by: Finasteride (Finasteride 5 Mg Tablet) 5 mg PO BID [facility] Last Admin: 05/06/21 20:00 Dose: 5 mg Documented by: Hydromorphone HCl (Hydromorphone 0.5 Mg/0.5 Ml Syringe) 0.5 mg IVP Q2H PRN PRN Reason: PAIN Last Admin: 05/06/21 17:37 Dose: 0.5 mg Documented by: Sodium Chloride (Normal Saline 0.9%) 1,000 mls @ 125 mls/hr IV .Q8H [facility] Last Infusion: 05/07/21 07:55 Dose: 0 mls/hr Documented by: Levetiracetam (Levetiracetam 250 Mg Tablet) 1,000 mg PO BID [facility] Last Admin: 05/06/21 20:01 Dose: 1,000 mg Documented by: Lisinopril (Lisinopril 20 Mg Tablet) 20 mg PO DAILY [facility] Last Admin: 05/06/21 10:52 Dose: 20 mg Documented by: Multivitamins/Minerals (Multivitamin W/Minerals Tablet) 1 tab PO DAILYWM [facility] Last Admin: 05/06/21 08:41 Dose: 1 tab Documented by: Ondansetron HCl (Ondansetron 4 Mg/2 Ml Vial) 4 mg IVP Q6HR PRN PRN Reason: Nausea / Vomiting Last Admin: 04/19/21 18:02 Dose: 4 mg Documented by: Oxcarbazepine (Oxcarbazepine 150 Mg Tablet) 450 mg PO BID [facility] Last Admin: 05/06/21 20:02 Dose: 450 mg Documented by: Polyethylene Glycol (Polyethylene Glycol 3350 17 Gm Packet) 17 gm PO DAILY [facility] Last Admin: 05/06/21 08:40 Dose: 17 gm Documented by: Senna (Senna 8.6 Mg Tablet) 8.6 - 17.2 mg PO DAILY [facility] Last Admin: 05/06/21 10:55 Dose: 8.6 mg Documented by: Sodium Chloride (Sodium Chloride Flush 0.9% 10 Ml Syringe) 10 ml IVP PRN PRN PRN Reason: NEEDED PER PROVIDER ORDERS Last Admin: 05/01/21 19:54 Dose: 10 ml Documented by: Sodium Chloride (Sodium Chloride Flush 0.9% 10 Ml Syringe) 10 ml IVP 0100,0900,1700 [facility] Last Admin: 05/07/21 03:38 Dose: Not Given Documented by: Tamsulosin HCl (Tamsulosin 0.4 Mg Capsule) 0.4 mg PO DAILY [facility] Last Admin: 05/06/21 10:45 Dose: 0.4 mg Documented by: Apixaban [Eliquis] 1 tab PO DAILY 04/13/21 Finasteride [Proscar] 5 mg PO DAILY 04/13/21 Lisinopril [Zestril] 20 mg PO DAILY 04/13/21 Tamsulosin [Flomax] 0.4 mg PO DAILY 04/13/21 Objective - Vital Signs/Intake & Output Reviewed Vital Signs: Yes Vital Signs: Vital Signs x48h Temp Pulse Resp BP Pulse Ox 05/07/21 07:46 36.6 C 86 20 153/75 H 96 Intake & Output: Intake & Output 05/04/21 05/05/21 05/06/21 05/07/21 23:59 23:59 23:59 23:59 Intake Total 3144.167 3396.667 4131.25 2453.750 Output Total 2950 2625 2175 1300 Balance 194.167 430.150 9584.25 1153.750 - Objective General Appearance: positive: No acute distress, Alert Eyes Bilateral: positive: Normal inspection, Conjunctivae nml ENT: positive: ENT inspection nml Neck: positive: Nml inspection Respiratory: positive: No respiratory distress. negative: Wheezes, Rales Cardiovascular: negative: Tachycardia, Systolic murmur Abdomen: positive: Non-tender, No distention. negative: Tenderness Skin: positive: Warm, Dry Extremities: positive: No pedal edema Neurologic/Psychiatric: positive: Other (He is able to move all 4 extremities. He does lack fine coordination in the left upper extremity.). negative: Disoriented to person, Disoriented to place - Lab Results Fish Bones: 05/07/21 05:40 05/07/21 05:40 Other Labs: Lab Results x24hrs 05/07/21 05/07/21 Range/Units 05:40 05:40 WBC 7.5 (4.8-10.8) x10^3/uL RBC 2.91 L (4.70-6.10) 10^6/uL Hgb 8.5 L (14.0-18.0) g/dL Hct 25.9 L (42.0-52.0) % MCV 89.0 (80.0-94.0) fL MCH 29.2 (27.0-31.0) pg MCHC 32.8 (32.0-36.0) g/dL RDW 13.0 (12.0-15.0) % Plt Count 268 (130-450) 10^3/uL MPV 9.1 (7.4-11.4) fL Neut # (Auto) 5.6 (1.5-6.6) 10^3/uL Lymph # (Auto) 1.2 L (1.5-3.5) 10^3/uL Bee # (Auto) 0.6 (0.0-1.0) 10^3/uL Eos # (Auto) 0.1 (0.0-0.7) 10^3/uL Baso # (Auto) 0.1 (0.0-0.1) 10^3/uL Absolute Nucleated RBC 0.00 x10^3/uL Nucleated RBC % 0.0 /100WBC Sodium 136 (135-145) mmol/L Potassium 3.3 L (3.5-5.0) mmol/L Chloride 105 (101-111) mmol/L Carbon Dioxide 24 (21-32) mmol/L Anion Gap 7.0 (6-13) BUN 12 (6-20) mg/dL Creatinine 0.8 (0.6-1.2) mg/dL Estimated GFR (MDRD) 93 (>89) Glucose 97 (70-100) mg/dL Calcium 8.2 L (8.5-10.3) mg/dL ABX Reporting Has patient been on IV antibiotics over the past 48 hours?: No Assessment/Plan - Problem List (1) Seizure as late effect of cerebrovascular accident (CVA) Impression: He has now been seizure-free for the past 6 days. He appears be tolerating Keppra 1000 mg twice daily. We decrease Trileptal to 140 mg as he was quite somnolent with the increased dose of 600 mg. We will discharge him on the current regimen and he will need outpatient follow-up with neurology. (2) Left-sided muscle weakness Impression: This appears to have resolved for the most part. He still appears to have minor left-sided deficits with fine motor skills. 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 MRI showed no evidence of infarct. At this point he is medically cleared for discharge. He will be evaluated by physical therapy as he will likely need SNF. (3) Afib Impression: He remains rate controlled on carvedilol. We will continue Eliquis. (4) Cardiomyopathy Impression: He has a history of heart failure with reduced ejection fraction but now his EF is preserved. We will continue carvedilol and lisinopril. (5) BPH (benign prostatic hyperplasia) Impression: We will continue Flomax. He does have a catheter and will look to remove this and attempt a voiding trial. (6) UTI (urinary tract infection) Impression: He completed therapy with ciprofloxacin for this. White count remains normal.
[2021-05-07] MEDS: ACETAMINOPHEN 500 MG TABLET PO PRN ×2 (13:13→20:43)
[2021-05-07] MEDS: SODIUM CHLORIDE FLUSH 0.9% 10 ML SYRINGE IVP PRN (18:07)
[2021-05-07] MEDS: HYDROmorphone 0.5 MG/0.5 ML SYRINGE IVP PRN (18:07)
[2021-05-07] MEDS: ATORVASTATIN 40 MG TABLET PO SCH (20:44)
[2021-05-08] MEDS: SODIUM CHLORIDE FLUSH 0.9% 10 ML SYRINGE IVP SCH ×4 (06:47→23:40)
[2021-05-08 07:55] LABS: BASOPHILS # (AUTO) 0.1 10^3/uL (0.0-0.1); BASOPHILS % (AUTO) 0.8 %; EOSINOPHILS # (AUTO) 0.1 10^3/uL (0.0-0.7); EOSINOPHILS % (AUTO) 1.7 %; HGB - HEMOGLOBIN 9.2 g/dL (14.0-18.0); LYMPHOCYTES % (AUTO) 14.5 %; MEAN CORPUSCULAR HEMOGLOBIN 29.5 pg (27.0-31.0); MEAN CORPUSCULAR HGB CONC 32.9 g/dL (32.0-36.0); MEAN CORPUSCULAR VOLUME 89.7 fL (80.0-94.0); MEAN PLATELET VOLUME 9.1 fL (7.4-11.4); MONOCYTES # (AUTO) 0.5 10^3/uL (0.0-1.0); MONOCYTES % (AUTO) 7.1 %; NEUTROPHILS % (AUTO) 75.6 %; PLT - PLATELET COUNT 291 10^3/uL (130-450); RED BLOOD COUNT 3.12 10^6/uL (4.70-6.10); RED CELL DISTRIBUTION WIDTH 13.1 % (12.0-15.0); WHITE BLOOD COUNT 6.6 x10^3/uL (4.8-10.8)
[2021-05-08 08:06] LABS: CALCIUM 8.4 mg/dL (8.5-10.3); CREATININE 0.8 mg/dL (0.6-1.2); POTASSIUM 3.1 mmol/L (3.5-5.0)
[2021-05-08] MEDS: OXcarbazepine 150 MG TABLET PO SCH ×2 (08:54→20:04)
[2021-05-08] MEDS: carvediloL 3.125 MG TABLET PO SCH ×2 (08:55→20:05)
[2021-05-08] MEDS: lisinopriL 20 MG TABLET PO SCH (08:55)
[2021-05-08] MEDS: ACETAMINOPHEN 500 MG TABLET PO PRN (08:55)
[2021-05-08] MEDS: MULTIVITAMIN W/MINERALS TABLET PO SCH (08:55)
[2021-05-08] MEDS: DOCUSATE SODIUM 250 MG CAPSULE PO SCH (08:55)
[2021-05-08] MEDS: FINASTERIDE 5 MG TABLET PO SCH ×2 (08:55→20:05)
[2021-05-08] MEDS: APIXABAN 5 MG TABLET PO SCH ×2 (08:55→20:05)
[2021-05-08] MEDS: levETIRAcetam 250 MG TABLET PO SCH ×2 (08:55→20:04)
[2021-05-08] MEDS: TAMSULOSIN 0.4 MG CAPSULE PO SCH (08:55)
[2021-05-08] MEDS: SENNA 8.6 MG TABLET PO SCH (08:56)
[2021-05-08] MEDS: polyethylene glycoL 3350 17 GM PACKET PO SCH (08:56)
[2021-05-08] MEDS ORDERED: POTASSIUM CHLORIDE 20 MEQ TABLET PO ONE (10:24)
--- NOTE | 2021-05-08 10:27 | PROVIDER PROGRESS NOTE ---
Subjective - Prog Note Date Prog Note Date: 05/08/21 - Subjective Subjective: He reports feeling well. Denies any pain. Current Medications - Current Medications Current Medications: Active Medications Acetaminophen (Acetaminophen 500 Mg Tablet) 1,000 mg PO Q6H PRN PRN Reason: Pain or Fever > 38C (100.4F) Last Admin: 05/08/21 08:55 Dose: 1,000 mg Documented by: Apixaban (Apixaban 5 Mg Tablet) 5 mg PO BID [facility] Last Admin: 05/08/21 08:55 Dose: 5 mg Documented by: Atorvastatin Calcium (Atorvastatin 40 Mg Tablet) 40 mg PO QPM [facility] Last Admin: 05/07/21 20:44 Dose: 40 mg Documented by: Carvedilol (Carvedilol 3.125 Mg Tablet) 3.125 mg PO BID [facility] Last Admin: 05/08/21 08:55 Dose: 3.125 mg Documented by: Docusate Sodium (Docusate Sodium 250 Mg Capsule) 250 - 500 mg PO DAILY [facility] Last Admin: 05/08/21 08:55 Dose: 500 mg Documented by: Finasteride (Finasteride 5 Mg Tablet) 5 mg PO BID [facility] Last Admin: 05/08/21 08:55 Dose: 5 mg Documented by: Hydromorphone HCl (Hydromorphone 0.5 Mg/0.5 Ml Syringe) 0.5 mg IVP Q2H PRN PRN Reason: PAIN Last Admin: 05/07/21 18:07 Dose: 0.5 mg Documented by: Ibuprofen (Ibuprofen 400 Mg Tablet) 400 mg PO Q6HR PRN PRN Reason: PAIN Levetiracetam (Levetiracetam 250 Mg Tablet) 1,000 mg PO BID [facility] Last Admin: 05/08/21 08:55 Dose: 1,000 mg Documented by: Lisinopril (Lisinopril 20 Mg Tablet) 20 mg PO DAILY [facility] Last Admin: 05/08/21 08:55 Dose: 20 mg Documented by: Multivitamins/Minerals (Multivitamin W/Minerals Tablet) 1 tab PO DAILYWM [facility] Last Admin: 05/08/21 08:55 Dose: 1 tab Documented by: Ondansetron HCl (Ondansetron 4 Mg/2 Ml Vial) 4 mg IVP Q6HR PRN PRN Reason: Nausea / Vomiting Last Admin: 04/19/21 18:02 Dose: 4 mg Documented by: Oxcarbazepine (Oxcarbazepine 150 Mg Tablet) 450 mg PO BID [facility] Last Admin: 05/08/21 08:54 Dose: 450 mg Documented by: Polyethylene Glycol (Polyethylene Glycol 3350 17 Gm Packet) 17 gm PO DAILY [facility] Last Admin: 05/08/21 08:56 Dose: 17 gm Documented by: Senna (Senna 8.6 Mg Tablet) 8.6 - 17.2 mg PO DAILY [facility] Last Admin: 05/08/21 08:56 Dose: 17.2 mg Documented by: Sodium Chloride (Sodium Chloride Flush 0.9% 10 Ml Syringe) 10 ml IVP PRN PRN PRN Reason: NEEDED PER PROVIDER ORDERS Last Admin: 05/07/21 18:07 Dose: 10 ml Documented by: Sodium Chloride (Sodium Chloride Flush 0.9% 10 Ml Syringe) 10 ml IVP 0100,0900,1700 [facility] Last Admin: 05/08/21 16:04 Dose: 10 ml Documented by: Tamsulosin HCl (Tamsulosin 0.4 Mg Capsule) 0.4 mg PO DAILY [facility] Last Admin: 05/08/21 08:55 Dose: 0.4 mg Documented by: Apixaban [Eliquis] 1 tab PO DAILY 04/13/21 Finasteride [Proscar] 5 mg PO DAILY 04/13/21 Lisinopril [Zestril] 20 mg PO DAILY 04/13/21 Tamsulosin [Flomax] 0.4 mg PO DAILY 04/13/21 Objective - Vital Signs/Intake & Output Reviewed Vital Signs: Yes Vital Signs: Vital Signs x48h Temp Pulse Resp BP Pulse Ox 05/08/21 08:00 36.6 C 72 16 138/74 H 100 05/08/21 05:46 36.8 C 54 L 17 139/64 H 96 Intake & Output: Intake & Output 05/05/21 05/06/21 05/07/21 05/08/21 23:59 23:59 23:59 23:59 Intake Total 3396.667 4131.25 2693.750 240 Output Total 2625 2175 2225 200 Balance 624.495 5732.25 468.750 40 - Objective General Appearance: positive: No acute distress, Alert Eyes Bilateral: positive: Normal inspection, Conjunctivae nml ENT: positive: ENT inspection nml Neck: positive: Nml inspection Respiratory: positive: No respiratory distress. negative: Rales Cardiovascular: positive: Irregularly irregular Abdomen: positive: Non-tender, No distention. negative: Tenderness Skin: positive: Warm, Dry Extremities: positive: No pedal edema Neurologic/Psychiatric: positive: Other (He is moving all 4 extremities. He does have decreased fine motor movement with the left upper extremity.). negative: Disoriented to person, Disoriented to place - Lab Results Fish Bones: 05/08/21 07:43 05/08/21 07:43 Other Labs: Lab Results x24hrs 05/08/21 05/08/21 Range/Units 07:43 07:43 WBC 6.6 (4.8-10.8) x10^3/uL RBC 3.12 L (4.70-6.10) 10^6/uL Hgb 9.2 L (14.0-18.0) g/dL Hct 28.0 L (42.0-52.0) % MCV 89.7 (80.0-94.0) fL MCH 29.5 (27.0-31.0) pg MCHC 32.9 (32.0-36.0) g/dL RDW 13.1 (12.0-15.0) % Plt Count 291 (130-450) 10^3/uL MPV 9.1 (7.4-11.4) fL Neut # (Auto) 5.0 (1.5-6.6) 10^3/uL Lymph # (Auto) 1.0 L (1.5-3.5) 10^3/uL [place] # (Auto) 0.5 (0.0-1.0) 10^3/uL Eos # (Auto) 0.1 (0.0-0.7) 10^3/uL Baso # (Auto) 0.1 (0.0-0.1) 10^3/uL Absolute Nucleated RBC 0.00 x10^3/uL Nucleated RBC % 0.0 /100WBC Sodium 137 (135-145) mmol/L Potassium 3.1 L (3.5-5.0) mmol/L Chloride 102 (101-111) mmol/L Carbon Dioxide 27 (21-32) mmol/L Anion Gap 8.0 (6-13) BUN 13 (6-20) mg/dL Creatinine 0.8 (0.6-1.2) mg/dL Estimated GFR (MDRD) 93 (>89) Glucose 102 H (70-100) mg/dL Calcium 8.4 L (8.5-10.3) mg/dL Assessment/Plan - Problem List (1) Seizure as late effect of cerebrovascular accident (CVA) Impression: He has now been seizure-free for the past week He appears to be tolerating Keppra 1000 mg twice daily. We decrease Trileptal to 450 mg as he was quite somnolent with the increased dose of 600 mg. We will discharge him on the current regimen and he will need outpatient follow-up with neurology. (2) Left-sided muscle weakness Impression: He still appears to have minor left-sided deficits with fine motor skills. 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 MRI showed no evidence of infarct. At this point he is medically c leared for discharge. He was evaluated by physical therapy and SNF is recommended. (3) Afib Impression: He remains rate controlled on carvedilol. We will continue Eliquis. (4) Cardiomyopathy Impression: He has a history of heart failure with reduced ejection fraction but now his EF is preserved. We will continue carvedilol and lisinopril. (5) BPH (benign prostatic hyperplasia) Impression: We will continue Flomax and attempt a voiding trial today. (6) UTI (urinary tract infection) Impression: He completed treatment with ciprofloxacin.
[2021-05-08] MEDS: ATORVASTATIN 40 MG TABLET PO SCH (20:05)
[2021-05-09] MEDS ORDERED: POTASSIUM CHLORIDE 20 MEQ/15 ML UDC PO SCH (08:00)
[2021-05-09] MEDS: carvediloL 3.125 MG TABLET PO SCH ×2 (09:24→20:19)
[2021-05-09] MEDS: MULTIVITAMIN W/MINERALS TABLET PO SCH (09:24)
[2021-05-09] MEDS: FINASTERIDE 5 MG TABLET PO SCH ×2 (09:24→20:17)
[2021-05-09] MEDS: levETIRAcetam 250 MG TABLET PO SCH ×2 (09:24→20:17)
[2021-05-09] MEDS: OXcarbazepine 150 MG TABLET PO SCH ×2 (09:24→20:17)
[2021-05-09] MEDS: polyethylene glycoL 3350 17 GM PACKET PO SCH (09:25)
[2021-05-09] MEDS: DOCUSATE SODIUM 250 MG CAPSULE PO SCH (09:25)
[2021-05-09] MEDS: lisinopriL 20 MG TABLET PO SCH (09:25)
[2021-05-09] MEDS: TAMSULOSIN 0.4 MG CAPSULE PO SCH (09:25)
[2021-05-09] MEDS: APIXABAN 5 MG TABLET PO SCH ×2 (09:25→20:18)
[2021-05-09] MEDS: SODIUM CHLORIDE FLUSH 0.9% 10 ML SYRINGE IVP SCH ×3 (09:25→23:56)
[2021-05-09] MEDS: SENNA 8.6 MG TABLET PO SCH (09:25)
[2021-05-09 10:24] LABS: BASOPHILS # (AUTO) 0.1 10^3/uL (0.0-0.1); BASOPHILS % (AUTO) 1.1 %; EOSINOPHILS # (AUTO) 0.1 10^3/uL (0.0-0.7); EOSINOPHILS % (AUTO) 1.8 %; HCT - HEMATOCRIT 32.3 % (42.0-52.0); HGB - HEMOGLOBIN 10.3 g/dL (14.0-18.0); LYMPHOCYTES % (AUTO) 13.4 %; MEAN CORPUSCULAR HEMOGLOBIN 29.2 pg (27.0-31.0); MEAN CORPUSCULAR HGB CONC 31.9 g/dL (32.0-36.0); MEAN CORPUSCULAR VOLUME 91.5 fL (80.0-94.0); MONOCYTES # (AUTO) 0.3 10^3/uL (0.0-1.0); MONOCYTES % (AUTO) 4.5 %; NEUTROPHILS # (AUTO) 5.7 10^3/uL (1.5-6.6); NEUTROPHILS % (AUTO) 79.1 %; PLT - PLATELET COUNT 367 10^3/uL (130-450); RED BLOOD COUNT 3.53 10^6/uL (4.70-6.10); RED CELL DISTRIBUTION WIDTH 13.2 % (12.0-15.0); WHITE BLOOD COUNT 7.3 x10^3/uL (4.8-10.8)
[2021-05-09 10:32] LABS: CREATININE 0.8 mg/dL (0.6-1.2); POTASSIUM 4.1 mmol/L (3.5-5.0)
--- NOTE | 2021-05-09 11:08 | PROVIDER PROGRESS NOTE ---
Subjective - Prog Note Date Prog Note Date: 05/09/21 - Subjective Subjective: He complains of occasional left knee pain. He otherwise reports doing well. Current Medications - Current Medications Current Medications: Active Medications Acetaminophen (Acetaminophen 500 Mg Tablet) 1,000 mg PO Q6H PRN PRN Reason: Pain or Fever > 38C (100.4F) Last Admin: 05/08/21 08:55 Dose: 1,000 mg Documented by: Apixaban (Apixaban 5 Mg Tablet) 5 mg PO BID [facility] Last Admin: 05/09/21 09:25 Dose: 5 mg Documented by: Atorvastatin Calcium (Atorvastatin 40 Mg Tablet) 40 mg PO QPM [facility] Last Admin: 05/08/21 20:05 Dose: 40 mg Documented by: Carvedilol (Carvedilol 3.125 Mg Tablet) 3.125 mg PO BID [facility] Last Admin: 05/09/21 09:24 Dose: 3.125 mg Documented by: Docusate Sodium (Docusate Sodium 250 Mg Capsule) 250 - 500 mg PO DAILY [facility] Last Admin: 05/09/21 09:25 Dose: Not Given Documented by: Finasteride (Finasteride 5 Mg Tablet) 5 mg PO BID [facility] Last Admin: 05/09/21 09:24 Dose: 5 mg Documented by: Hydromorphone HCl (Hydromorphone 0.5 Mg/0.5 Ml Syringe) 0.5 mg IVP Q2H PRN PRN Reason: PAIN Last Admin: 05/07/21 18:07 Dose: 0.5 mg Documented by: Ibuprofen (Ibuprofen 400 Mg Tablet) 400 mg PO Q6HR PRN PRN Reason: PAIN Levetiracetam (Levetiracetam 250 Mg Tablet) 1,000 mg PO BID [facility] Last Admin: 05/09/21 09:24 Dose: 1,000 mg Documented by: Lisinopril (Lisinopril 20 Mg Tablet) 20 mg PO DAILY [facility] Last Admin: 05/09/21 09:25 Dose: 20 mg Documented by: Multivitamins/Minerals (Multivitamin W/Minerals Tablet) 1 tab PO DAILYWM [facility] Last Admin: 05/09/21 09:24 Dose: 1 tab Documented by: Ondansetron HCl (Ondansetron 4 Mg/2 Ml Vial) 4 mg IVP Q6HR PRN PRN Reason: Nausea / Vomiting Last Admin: 04/19/21 18:02 Dose: 4 mg Documented by: Oxcarbazepine (Oxcarbazepine 150 Mg Tablet) 450 mg PO BID [facility] Last Admin: 05/09/21 09:24 Dose: 450 mg Documented by: Polyethylene Glycol (Polyethylene Glycol 3350 17 Gm Packet) 17 gm PO DAILY [facility] Last Admin: 05/09/21 09:25 Dose: Not Given Documented by: Potassium Chloride (Potassium Chloride 20 Meq/15 Ml Udc) 10 meq PO DAILYWM [facility] Senna (Senna 8.6 Mg Tablet) 8.6 - 17.2 mg PO DAILY [facility] Last Admin: 05/09/21 09:25 Dose: Not Given Documented by: Sodium Chloride (Sodium Chloride Flush 0.9% 10 Ml Syringe) 10 ml IVP PRN PRN PRN Reason: NEEDED PER PROVIDER ORDERS Last Admin: 05/07/21 18:07 Dose: 10 ml Documented by: Sodium Chloride (Sodium Chloride Flush 0.9% 10 Ml Syringe) 10 ml IVP 0100,0900,1700 [facility] Last Admin: 05/09/21 09:25 Dose: 10 ml Documented by: Tamsulosin HCl (Tamsulosin 0.4 Mg Capsule) 0.4 mg PO DAILY [facility] Last Admin: 05/09/21 09:25 Dose: 0.4 mg Documented by: Apixaban [Eliquis] 1 tab PO DAILY 04/13/21 Finasteride [Proscar] 5 mg PO DAILY 04/13/21 Lisinopril [Zestril] 20 mg PO DAILY 04/13/21 Tamsulosin [Flomax] 0.4 mg PO DAILY 04/13/21 Objective - Vital Signs/Intake & Output Reviewed Vital Signs: Yes Vital Signs: Vital Signs x48h Temp Pulse Pulse Resp BP Pulse Ox 05/09/21 09:24 99 162/75 H 05/09/21 08:00 36.7 C 74 18 136/66 H 97 Intake & Output: Intake & Output 05/06/21 05/07/21 05/08/21 05/09/21 23:59 23:59 23:59 23:59 Intake Total 4131.25 2693.750 840 240 Output Total 2175 2225 1100 200 Balance 1956.25 468.750 260 40 - Objective General Appearance: positive: No acute distress, Alert Eyes Bilateral: positive: Normal inspection, Conjunctivae nml ENT: positive: ENT inspection nml Neck: positive: Nml inspection Respiratory: positive: No respiratory distress Skin: positive: Warm, Dry Extremities: positive: No pedal edema Neurologic/Psychiatric: positive: Other (He is about 4 out of 5 motor strength in the left upper extremity with lack of fine motor coordination.). negative: Disoriented to person, Disoriented to place - Lab Results Fish Bones: 05/09/21 10:17 05/09/21 10:17 Other Labs: Lab Results x24hrs 05/09/21 05/09/21 Range/Units 10:17 10:17 WBC 7.3 (4.8-10.8) x10^3/uL RBC 3.53 L (4.70-6.10) 10^6/uL Hgb 10.3 L (14.0-18.0) g/dL Hct 32.3 L (42.0-52.0) % MCV 91.5 (80.0-94.0) fL MCH 29.2 (27.0-31.0) pg MCHC 31.9 L (32.0-36.0) g/dL RDW 13.2 (12.0-15.0) % Plt Count 367 (130-450) 10^3/uL MPV 9.0 (7.4-11.4) fL Neut # (Auto) 5.7 (1.5-6.6) 10^3/uL Lymph # (Auto) 1.0 L (1.5-3.5) 10^3/uL [place] # (Auto) 0.3 (0.0-1.0) 10^3/uL Eos # (Auto) 0.1 (0.0-0.7) 10^3/uL Baso # (Auto) 0.1 (0.0-0.1) 10^3/uL Absolute Nucleated RBC 0.00 x10^3/uL Nucleated RBC % 0.0 /100WBC Sodium 140 (135-145) mmol/L Potassium 4.1 (3.5-5.0) mmol/L Chloride 103 (101-111) mmol/L Carbon Dioxide 27 (21-32) mmol/L Anion Gap 10.0 (6-13) BUN 13 (6-20) mg/dL Creatinine 0.8 (0.6-1.2) mg/dL Estimated GFR (MDRD) 93 (>89) Glucose 150 H (70-100) mg/dL Calcium 9.0 (8.5-10.3) mg/dL Assessment/Plan - Problem List (1) Seizure as late effect of cerebrovascular accident (CVA) Impression: He has now been seizure-free for the past week. He appears to be tolerating Keppra 1000 mg twice daily. We did decrease Trileptal to 450 mg as he was somnolent with the increased dose of 600 mg. We will discharge him on the current regimen and he will need outpatient follow-up with neurology. (2) Left-sided muscle weakness Impression: He still appears to have minor left-sided deficits with fine motor skills. 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 MRI showed no evidence of infarct. At this point he is medically cleared for discharge. He was evaluated by physical therapy and SNF is recommended. (3) Afib Impression: He remains rate controlled on carvedilol. We will continue Eliquis. (4) Cardiomyopathy Impression: He has a history of heart failure with reduced ejection fraction but now his EF is preserved. We will continue carvedilol and lisinopril. (5) BPH (benign prostatic hyperplasia) Impression: We will continue Flomax. A voiding trial was not attempted yesterday as the patient straight caths but prefers his own equipment from home. We are looking to have his family bring in his own catheters so he can straight cath himself as needed. Once these are available he will remove the Rodriguez. (6) UTI (urinary tract infection) Impression: He completed treatment with ciprofloxacin.
[2021-05-09] MEDS: IBUPROFEN 400 MG TABLET PO PRN (17:41)
[2021-05-09] MEDS: ATORVASTATIN 40 MG TABLET PO SCH (20:18)
[2021-05-10 08:46] LABS: CALCIUM 8.7 mg/dL (8.5-10.3); CREATININE 0.8 mg/dL (0.6-1.2); POTASSIUM 3.7 mmol/L (3.5-5.0)
[2021-05-10] MEDS: IBUPROFEN 400 MG TABLET PO PRN ×2 (10:07→17:27)
[2021-05-10] MEDS: polyethylene glycoL 3350 17 GM PACKET PO SCH (10:14)
[2021-05-10] MEDS: POTASSIUM CHLORIDE 20 MEQ/15 ML UDC PO SCH (10:16)
[2021-05-10] MEDS: lisinopriL 20 MG TABLET PO SCH (10:21)
[2021-05-10] MEDS: carvediloL 3.125 MG TABLET PO SCH ×2 (10:21→20:17)
[2021-05-10] MEDS: SENNA 8.6 MG TABLET PO SCH (10:22)
[2021-05-10] MEDS: TAMSULOSIN 0.4 MG CAPSULE PO SCH (10:22)
[2021-05-10] MEDS: levETIRAcetam 250 MG TABLET PO SCH ×2 (10:22→20:16)
[2021-05-10] MEDS: OXcarbazepine 150 MG TABLET PO SCH ×2 (10:23→20:17)
[2021-05-10] MEDS: DOCUSATE SODIUM 250 MG CAPSULE PO SCH (10:24)
[2021-05-10] MEDS: MULTIVITAMIN W/MINERALS TABLET PO SCH (10:24)
[2021-05-10] MEDS: FINASTERIDE 5 MG TABLET PO SCH ×2 (10:24→20:17)
[2021-05-10] MEDS: SODIUM CHLORIDE FLUSH 0.9% 10 ML SYRINGE IVP SCH ×2 (10:25→17:24)
[2021-05-10] MEDS: APIXABAN 5 MG TABLET PO SCH ×2 (10:25→20:17)
[2021-05-10] MEDS: HYDROmorphone 0.5 MG/0.5 ML SYRINGE IVP PRN (10:26)
--- NOTE | 2021-05-10 16:34 | PROVIDER PROGRESS NOTE ---
Subjective - Prog Note Date Prog Note Date: 05/10/21 - Subjective Subjective: He has no complaints today. Denies any pain. Current Medications - Current Medications Current Medications: Active Medications Acetaminophen (Acetaminophen 500 Mg Tablet) 1,000 mg PO Q6H PRN PRN Reason: Pain or Fever > 38C (100.4F) Last Admin: 05/08/21 08:55 Dose: 1,000 mg Documented by: Apixaban (Apixaban 5 Mg Tablet) 5 mg PO BID [facility] Last Admin: 05/10/21 10:25 Dose: 5 mg Documented by: Atorvastatin Calcium (Atorvastatin 40 Mg Tablet) 40 mg PO QPM [facility] Last Admin: 05/09/21 20:18 Dose: 40 mg Documented by: Carvedilol (Carvedilol 3.125 Mg Tablet) 3.125 mg PO BID [facility] Last Admin: 05/10/21 10:21 Dose: 3.125 mg Documented by: Docusate Sodium (Docusate Sodium 250 Mg Capsule) 250 - 500 mg PO DAILY [facility] Last Admin: 05/10/21 10:24 Dose: 250 mg Documented by: Finasteride (Finasteride 5 Mg Tablet) 5 mg PO BID [facility] Last Admin: 05/10/21 10:24 Dose: 5 mg Documented by: Hydromorphone HCl (Hydromorphone 0.5 Mg/0.5 Ml Syringe) 0.5 mg IVP Q2H PRN PRN Reason: PAIN Last Admin: 05/10/21 10:26 Dose: 0.5 mg Documented by: Ibuprofen (Ibuprofen 400 Mg Tablet) 400 mg PO Q6HR PRN PRN Reason: PAIN Last Admin: 05/10/21 10:07 Dose: 400 mg Documented by: Levetiracetam (Levetiracetam 250 Mg Tablet) 1,000 mg PO BID [facility] Last Admin: 05/10/21 10:22 Dose: 1,000 mg Documented by: Lisinopril (Lisinopril 20 Mg Tablet) 20 mg PO DAILY [facility] Last Admin: 05/10/21 10:21 Dose: 20 mg Documented by: Multivitamins/Minerals (Multivitamin W/Minerals Tablet) 1 tab PO DAILYWM [facility] Last Admin: 05/10/21 10:24 Dose: 1 tab Documented by: Ondansetron HCl (Ondansetron 4 Mg/2 Ml Vial) 4 mg IVP Q6HR PRN PRN Reason: Nausea / Vomiting Last Admin: 04/19/21 18:02 Dose: 4 mg Documented by: Oxcarbazepine (Oxcarbazepine 150 Mg Tablet) 600 mg PO BID [facility] Last Admin: 05/10/21 10:23 Dose: 600 mg Documented by: Polyethylene Glycol (Polyethylene Glycol 3350 17 Gm Packet) 17 gm PO DAILY [facility] Last Admin: 05/10/21 10:14 Dose: 17 gm Documented by: Potassium Chloride (Potassium Chloride 20 Meq/15 Ml Udc) 10 meq PO DAILYWM [facility] Last Admin: 05/10/21 10:16 Dose: 10 meq Documented by: Senna (Senna 8.6 Mg Tablet) 8.6 - 17.2 mg PO DAILY [facility] Last Admin: 05/10/21 10:22 Dose: 8.6 mg Documented by: Sodium Chloride (Sodium Chloride Flush 0.9% 10 Ml Syringe) 10 ml IVP PRN PRN PRN Reason: NEEDED PER PROVIDER ORDERS Last Admin: 05/07/21 18:07 Dose: 10 ml Documented by: Sodium Chloride (Sodium Chloride Flush 0.9% 10 Ml Syringe) 10 ml IVP 0100,0900,1700 [facility] Last Admin: 05/10/21 10:25 Dose: 10 ml Documented by: Tamsulosin HCl (Tamsulosin 0.4 Mg Capsule) 0.4 mg PO DAILY [facility] Last Admin: 05/10/21 10:22 Dose: 0.4 mg Documented by: Apixaban [Eliquis] 1 tab PO DAILY 04/13/21 Finasteride [Proscar] 5 mg PO DAILY 04/13/21 Lisinopril [Zestril] 20 mg PO DAILY 04/13/21 Tamsulosin [Flomax] 0.4 mg PO DAILY 04/13/21 Objective - Vital Signs/Intake & Output Reviewed Vital Signs: Yes Intake & Output: Intake & Output 05/07/21 05/08/21 05/09/21 05/10/21 23:59 23:59 23:59 23:59 Intake Total 2693.750 840 822 240 Output Total 2225 1100 750 325 Balance 468.456 -750 72 -85 - Objective General Appearance: positive: No acute distress, Alert Eyes Bilateral: positive: Conjunctivae nml ENT: positive: ENT inspection nml Neck: positive: Nml inspection Respiratory: positive: No respiratory distress Skin: positive: Warm, Dry Extremities: positive: No pedal edema Neurologic/Psychiatric: positive: Other (He continues to have slightly decreased strength left upper extremity most prominent with fine motor skills.). negative: Disoriented to person, Disoriented to place, Disoriented to time - Lab Results Fish Bones: 05/09/21 10:17 05/10/21 07:48 Other Labs: Lab Results x24hrs 05/10/21 Range/Units 07:48 Sodium 136 (135-145) mmol/L Potassium 3.7 (3.5-5.0) mmol/L Chloride 102 (101-111) mmol/L Carbon Dioxide 26 (21-32) mmol/L Anion Gap 8.0 (6-13) BUN 17 (6-20) mg/dL Creatinine 0.8 (0.6-1.2) mg/dL Estimated GFR (MDRD) 93 (>89) Glucose 105 H (70-100) mg/dL Calcium 8.7 (8.5-10.3) mg/dL Assessment/Plan - Problem List (1) Delirium Impression: He has been delirious at times most often in the evening. Today he is alert and oriented and not have any hallucinations. Last night he did have a hallucination that a football player was hitting him in the chin while he was walking and fell. His daughter and also expressed concerns about his delirium. I discussed with him that he likely has delirium/sundowning due to his prolonged hospitalization. They stated he had similar symptoms while hospitalized at [facility] and he returned to baseline after he went home. I discussed with them that as long as he does not become too agitated that it interferes with his medical treatment that we should just monitor him for the time being and that he should improve as he returns to his usual environment. We also discussed an outpatient palliative care referral and the family is agreeable to this. I will ask his primary care physician to place consult once the patient is discharged. (2) Seizure as late effect of cerebrovascular accident (CVA) Impression: There was concern he may have been having focal seizures yesterday and so we increased his Trileptal to 600 mg twice daily. He appears to be tolerating it at this time. We will continue to monitor for somnolence which he previously h ad with the higher dose. Continue the current dose of Keppra. (3) Left-sided muscle weakness Impression: He still appears to have minor left-sided deficits with fine motor skills. 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 MRI showed no evidence of infarct. At this point he is medically cleared for discharge. He was evaluated by physical therapy and SNF is recommended. (4) Afib Impression: Impression: He remains rate controlled on carvedilol. We will continue Eliquis. (5) Cardiomyopathy Impression: He has a history of heart failure with reduced ejection fraction but now his EF is preserved. We will continue carvedilol and lisinopril. (6) BPH (benign prostatic hyperplasia) Impression: We are continuing finasteride and Flomax. We will hold off on a voiding trial at this time as there was concern that the last time a Rodriguez catheter was removed, the patient had difficulty urinating and he could not straight cath himself without trauma he became more agitated. This was discussed with his family today and they agree that we should keep the Rodriguez in place for the time being. (7) UTI (urinary tract infection) Impression: He completed treatment with ciprofloxacin.
[2021-05-10] MEDS: ATORVASTATIN 40 MG TABLET PO SCH (20:17)
[2021-05-11] MEDS: SODIUM CHLORIDE FLUSH 0.9% 10 ML SYRINGE IVP SCH ×3 (02:50→17:32)
[2021-05-11] MEDS: ACETAMINOPHEN 500 MG TABLET PO PRN (10:12)
[2021-05-11] MEDS: DOCUSATE SODIUM 250 MG CAPSULE PO SCH (10:12)
[2021-05-11] MEDS: levETIRAcetam 250 MG TABLET PO SCH ×2 (10:12→20:43)
[2021-05-11] MEDS: TAMSULOSIN 0.4 MG CAPSULE PO SCH (10:13)
[2021-05-11] MEDS: APIXABAN 5 MG TABLET PO SCH ×2 (10:13→20:50)
[2021-05-11] MEDS: MULTIVITAMIN W/MINERALS TABLET PO SCH (10:13)
[2021-05-11] MEDS: FINASTERIDE 5 MG TABLET PO SCH ×2 (10:13→20:50)
[2021-05-11] MEDS: POTASSIUM CHLORIDE 20 MEQ/15 ML UDC PO SCH (10:14)
[2021-05-11] MEDS: lisinopriL 20 MG TABLET PO SCH (10:14)
[2021-05-11] MEDS: carvediloL 3.125 MG TABLET PO SCH ×2 (10:14→20:50)
[2021-05-11] MEDS: SENNA 8.6 MG TABLET PO SCH (10:14)
[2021-05-11] MEDS: polyethylene glycoL 3350 17 GM PACKET PO SCH (10:15)
[2021-05-11] MEDS: OXcarbazepine 150 MG TABLET PO SCH ×2 (10:15→20:52)
--- NOTE | 2021-05-11 13:57 | PROVIDER PROGRESS NOTE ---
Subjective - Prog Note Date Prog Note Date: 05/11/21 - Subjective Subjective: He has no complaints. Denies pain. Current Medications - Current Medications Current Medications: Active Medications Acetaminophen (Acetaminophen 500 Mg Tablet) 1,000 mg PO Q6H PRN PRN Reason: Pain or Fever > 38C (100.4F) Last Admin: 05/11/21 10:12 Dose: 1,000 mg Documented by: Apixaban (Apixaban 5 Mg Tablet) 5 mg PO BID [facility] Last Admin: 05/11/21 10:13 Dose: 5 mg Documented by: Atorvastatin Calcium (Atorvastatin 40 Mg Tablet) 40 mg PO QPM [facility] Last Admin: 05/10/21 20:17 Dose: 40 mg Documented by: Carvedilol (Carvedilol 3.125 Mg Tablet) 3.125 mg PO BID [facility] Last Admin: 05/11/21 10:14 Dose: 3.125 mg Documented by: Docusate Sodium (Docusate Sodium 250 Mg Capsule) 250 - 500 mg PO DAILY [facility] Last Admin: 05/11/21 10:12 Dose: 250 mg Documented by: Finasteride (Finasteride 5 Mg Tablet) 5 mg PO BID [facility] Last Admin: 05/11/21 10:13 Dose: 5 mg Documented by: Hydromorphone HCl (Hydromorphone 0.5 Mg/0.5 Ml Syringe) 0.5 mg IVP Q2H PRN PRN Reason: PAIN Last Admin: 05/10/21 10:26 Dose: 0.5 mg Documented by: Ibuprofen (Ibuprofen 400 Mg Tablet) 400 mg PO Q6HR PRN PRN Reason: PAIN Last Admin: 05/10/21 17:27 Dose: 400 mg Documented by: Levetiracetam (Levetiracetam 250 Mg Tablet) 1,000 mg PO BID [facility] Last Admin: 05/11/21 10:12 Dose: 1,000 mg Documented by: Lisinopril (Lisinopril 20 Mg Tablet) 20 mg PO DAILY [facility] Last Admin: 05/11/21 10:14 Dose: 20 mg Documented by: Multivitamins/Minerals (Multivitamin W/Minerals Tablet) 1 tab PO DAILYWM [facility] Last Admin: 05/11/21 10:13 Dose: 1 tab Documented by: Ondansetron HCl (Ondansetron 4 Mg/2 Ml Vial) 4 mg IVP Q6HR PRN PRN Reason: Nausea / Vomiting Last Admin: 04/19/21 18:02 Dose: 4 mg Documented by: Oxcarbazepine (Oxcarbazepine 150 Mg Tablet) 600 mg PO BID [facility] Last Admin: 05/11/21 10:15 Dose: 600 mg Documented by: Polyethylene Glycol (Polyethylene Glycol 3350 17 Gm Packet) 17 gm PO DAILY [facility] Last Admin: 05/11/21 10:15 Dose: 17 gm Documented by: Potassium Chloride (Potassium Chloride 20 Meq/15 Ml Udc) 10 meq PO DAILYWM [facility] Last Admin: 05/11/21 10:14 Dose: 10 meq Documented by: Senna (Senna 8.6 Mg Tablet) 8.6 - 17.2 mg PO DAILY [facility] Last Admin: 05/11/21 10:14 Dose: 8.6 mg Documented by: Sodium Chloride (Sodium Chloride Flush 0.9% 10 Ml Syringe) 10 ml IVP PRN PRN PRN Reason: NEEDED PER PROVIDER ORDERS Last Admin: 05/07/21 18:07 Dose: 10 ml Documented by: Sodium Chloride (Sodium Chloride Flush 0.9% 10 Ml Syringe) 10 ml IVP 0100,0900,1700 [facility] Last Admin: 05/11/21 10:16 Dose: 10 ml Documented by: Tamsulosin HCl (Tamsulosin 0.4 Mg Capsule) 0.4 mg PO DAILY [facility] Last Admin: 05/11/21 10:13 Dose: 0.4 mg Documented by: Apixaban [Eliquis] 1 tab PO DAILY 04/13/21 Finasteride [Proscar] 5 mg PO DAILY 04/13/21 Lisinopril [Zestril] 20 mg PO DAILY 04/13/21 Tamsulosin [Flomax] 0.4 mg PO DAILY 04/13/21 Objective - Vital Signs/Intake & Output Reviewed Vital Signs: Yes Vital Signs: Vital Signs x48h Temp Pulse Resp BP BP Pulse Ox 05/11/21 10:00 36.6 C 70 16 108/54 L 99 05/11/21 07:42 36.8 C 69 22 112/55 L 100 Intake & Output: Intake & Output 05/08/21 05/09/21 05/10/21 05/11/21 23:59 23:59 23:59 23:59 Intake Total 840 822 890 50 Output Total 1100 750 425 225 Balance -260 72 465 -175 - Objective General Appearance: positive: No acute distress, Alert Eyes Bilateral: positive: Normal inspection, Conjunctivae nml ENT: positive: ENT inspection nml Neck: positive: Nml inspection Respiratory: positive: No respiratory distress Skin: positive: Warm, Dry Extremities: positive: No pedal edema - Lab Results Fish Bones: 05/12/21 08:31 05/12/21 08:31 Assessment/Plan - Problem List (1) Delirium Impression: This is resolved. He is back to his baseline neurologic status. No hallucinations. He still is at risk for sundowning so we will try to avoid sedatives. (2) Seizure as late effect of cerebrovascular accident (CVA) Impression: There was concern he may have been having focal seizures and so we increased his Trileptal to 600 mg twice daily. He appears to be tolerating it at this time. We will continue to monitor for somnolence which he previously had with the higher dose. Continue the current dose of Keppra. (3) Left-sided muscle weakness Impression: He still appears to have minor left-sided deficits with fine motor skills. 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 MRI showed no evidence of infarct. At this point he is medically cleared for discharge. He was evaluated by physical therapy and SNF is recommended. (4) Afib Impression: He remains rate controlled on carvedilol. We will continue Eliquis. (5) Cardiomyopathy Impression: He has a history of heart failure with reduced ejection fraction but now his EF is preserved. We will continue carvedilol and lisinopril. (6) BPH (benign prostatic hyperplasia) Impression: Continue with Flomax, finasteride. Rodriguez catheter will remain in place for the time being. (7) UTI (urinary tract infection) Impression: He completed treatment with ciprofloxacin.
[2021-05-11] MEDS: IBUPROFEN 400 MG TABLET PO PRN (17:32)
[2021-05-11] MEDS: ATORVASTATIN 40 MG TABLET PO SCH (20:50)
[2021-05-12] MEDS: SODIUM CHLORIDE FLUSH 0.9% 10 ML SYRINGE IVP SCH ×3 (01:04→17:05)
[2021-05-12] MEDS: IBUPROFEN 400 MG TABLET PO PRN (07:49)
[2021-05-12] MEDS ORDERED: methocarbamoL 500 MG TABLET PO STA (07:56)
[2021-05-12] MEDS ORDERED: LIDOCAINE PATCH 5% TOP STA (07:57)
[2021-05-12] MEDS: ACETAMINOPHEN 500 MG TABLET PO PRN ×2 (08:21→22:51)
[2021-05-12] MEDS: POTASSIUM CHLORIDE 20 MEQ/15 ML UDC PO SCH (08:22)
[2021-05-12] MEDS: polyethylene glycoL 3350 17 GM PACKET PO SCH (08:24)
[2021-05-12] MEDS: carvediloL 3.125 MG TABLET PO SCH ×2 (08:25→19:35)
[2021-05-12] MEDS: FINASTERIDE 5 MG TABLET PO SCH ×2 (08:25→19:36)
[2021-05-12] MEDS: TAMSULOSIN 0.4 MG CAPSULE PO SCH (08:26)
[2021-05-12] MEDS: SENNA 8.6 MG TABLET PO SCH (08:26)
[2021-05-12] MEDS: APIXABAN 5 MG TABLET PO SCH ×2 (08:26→19:37)
[2021-05-12] MEDS: lisinopriL 20 MG TABLET PO SCH (08:26)
[2021-05-12] MEDS: levETIRAcetam 250 MG TABLET PO SCH ×2 (08:27→19:36)
[2021-05-12 08:38] LABS: BASOPHILS # (AUTO) 0.1 10^3/uL (0.0-0.1); BASOPHILS % (AUTO) 1.6 %; EOSINOPHILS # (AUTO) 0.3 10^3/uL (0.0-0.7); EOSINOPHILS % (AUTO) 5.5 %; HCT - HEMATOCRIT 33.3 % (42.0-52.0); HGB - HEMOGLOBIN 10.9 g/dL (14.0-18.0); LYMPHOCYTES # (AUTO) 1.2 10^3/uL (1.5-3.5); MEAN CORPUSCULAR HEMOGLOBIN 28.9 pg (27.0-31.0); MEAN CORPUSCULAR HGB CONC 32.7 g/dL (32.0-36.0); MEAN CORPUSCULAR VOLUME 88.3 fL (80.0-94.0); MEAN PLATELET VOLUME 8.8 fL (7.4-11.4); MONOCYTES # (AUTO) 0.4 10^3/uL (0.0-1.0); NEUTROPHILS # (AUTO) 3.2 10^3/uL (1.5-6.6); NEUTROPHILS % (AUTO) 61.7 %; PLT - PLATELET COUNT 306 10^3/uL (130-450); RED BLOOD COUNT 3.77 10^6/uL (4.70-6.10); RED CELL DISTRIBUTION WIDTH 12.9 % (12.0-15.0); WHITE BLOOD COUNT 5.1 x10^3/uL (4.8-10.8)
[2021-05-12] MEDS: DOCUSATE SODIUM 250 MG CAPSULE PO SCH (08:39)
[2021-05-12] MEDS: MULTIVITAMIN W/MINERALS TABLET PO SCH (08:39)
[2021-05-12 08:47] LABS: CALCIUM 8.8 mg/dL (8.5-10.3); CREATININE 0.9 mg/dL (0.6-1.2); POTASSIUM 3.8 mmol/L (3.5-5.0)
--- NOTE | 2021-05-12 09:42 | XRAY Report ---
PROCEDURE: Chest 1 View X-Ray INDICATIONS: Chest pain. TECHNIQUE: One view of the chest was acquired. COMPARISON: 04/22/2021, 05/20/2020, 10/24/2019 FINDINGS: Surgical changes and devices: None. Lungs and pleura: An incomplete inspiratory result is noted, with low lung volumes and crowding of t he vascular markings. No focal infiltrates are seen. No large pneumothorax or large pleural effusion can be seen. Mediastinum: The aorta is prominent and tortuous. The cardiac contours are within normal limits. Bones and chest wall: Age-appropriate degenerative changes are seen. No suspicious bony lesions. Overlying soft tissues appear unremarkable. IMPRESSION: Unremarkable portable chest for age. Reviewed by: Madhu Acevedo MD on 05/12/2021 8:41 AM [facility] Approved by: Madhu Acevedo MD on 05/12/2021 8:41 AM [facility] Station ID: [id number]
[2021-05-12] MEDS: OXcarbazepine 150 MG TABLET PO SCH ×2 (12:12→19:35)
--- NOTE | 2021-05-12 12:30 | PROVIDER PROGRESS NOTE ---
Subjective - Prog Note Date Prog Note Date: 05/12/21 - Subjective Subjective: He complained of sudden onset left-sided flank pain that lasted about 30 minutes. Shortly after that he developed left upper chest pain that lasts about 15 minutes. He had no associated dyspnea. He felt the pain was sharp and it was alleviated by rubbing the area. He currently reports having no pain whatsoever. Current Medications - Current Medications Current Medications: Active Medications Acetaminophen (Acetaminophen 500 Mg Tablet) 1,000 mg PO Q6H PRN PRN Reason: Pain or Fever > 38C (100.4F) Last Admin: 05/12/21 08:21 Dose: 1,000 mg Documented by: Apixaban (Apixaban 5 Mg Tablet) 5 mg PO BID [facility] Last Admin: 05/12/21 08:26 Dose: 5 mg Documented by: Atorvastatin Calcium (Atorvastatin 40 Mg Tablet) 40 mg PO QPM [facility] Last Admin: 05/11/21 20:50 Dose: 40 mg Documented by: Carvedilol (Carvedilol 3.125 Mg Tablet) 3.125 mg PO BID [facility] Last Admin: 05/12/21 08:25 Dose: 3.125 mg Documented by: Docusate Sodium (Docusate Sodium 250 Mg Capsule) 250 - 500 mg PO DAILY [facility] Last Admin: 05/12/21 08:39 Dose: Not Given Documented by: Finasteride (Finasteride 5 Mg Tablet) 5 mg PO BID [facility] Last Admin: 05/12/21 08:25 Dose: 5 mg Documented by: Hydromorphone HCl (Hydromorphone 0.5 Mg/0.5 Ml Syringe) 0.5 mg IVP Q2H PRN PRN Reason: PAIN Last Admin: 05/10/21 10:26 Dose: 0.5 mg Documented by: Ibuprofen (Ibuprofen 400 Mg Tablet) 400 mg PO Q6HR PRN PRN Reason: PAIN Last Admin: 05/12/21 07:49 Dose: 400 mg Documented by: Levetiracetam (Levetiracetam 250 Mg Tablet) 1,000 mg PO BID [facility] Last Admin: 05/12/21 08:27 Dose: 1,000 mg Documented by: Lisinopril (Lisinopril 20 Mg Tablet) 20 mg PO DAILY [facility] Last Admin: 05/12/21 08:26 Dose: 20 mg Documented by: Multivitamins/Minerals (Multivitamin W/Minerals Tablet) 1 tab PO DAILYWM [facility] Last Admin: 05/12/21 08:39 Dose: Not Given Documented by: Ondansetron HCl (Ondansetron 4 Mg/2 Ml Vial) 4 mg IVP Q6HR PRN PRN Reason: Nausea / Vomiting Last Admin: 04/19/21 18:02 Dose: 4 mg Documented by: Oxcarbazepine (Oxcarbazepine 150 Mg Tablet) 600 mg PO BID [facility] Last Admin: 05/12/21 12:12 Dose: 600 mg Documented by: Polyethylene Glycol (Polyethylene Glycol 3350 17 Gm Packet) 17 gm PO DAILY [facility] Last Admin: 05/12/21 08:24 Dose: 17 gm Documented by: Potassium Chloride (Potassium Chloride 20 Meq/15 Ml Udc) 10 meq PO DAILYWM [facility] Last Admin: 05/12/21 08:22 Dose: 10 meq Documented by: Senna (Senna 8.6 Mg Tablet) 8.6 - 17.2 mg PO DAILY [facility] Last Admin: 05/12/21 08:26 Dose: 8.6 mg Documented by: Sodium Chloride (Sodium Chloride Flush 0.9% 10 Ml Syringe) 10 ml IVP PRN PRN PRN Reason: NEEDED PER PROVIDER ORDERS Last Admin: 05/07/21 18:07 Dose: 10 ml Documented by: Sodium Chloride (Sodium Chloride Flush 0.9% 10 Ml Syringe) 10 ml IVP 0100,0900,1700 [facility] Last Admin: 05/12/21 01:04 Dose: 10 ml Documented by: Tamsulosin HCl (Tamsulosin 0.4 Mg Capsule) 0.4 mg PO DAILY [facility] Last Admin: 05/12/21 08:26 Dose: 0.4 mg Documented by: Apixaban [Eliquis] 1 tab PO DAILY 04/13/21 Finasteride [Proscar] 5 mg PO DAILY 04/13/21 Lisinopril [Zestril] 20 mg PO DAILY 04/13/21 Tamsulosin [Flomax] 0.4 mg PO DAILY 04/13/21 Objective - Vital Signs/Intake & Output Reviewed Vital Signs: Yes Vital Signs: Vital Signs x48h Temp Pulse Resp BP Pulse Ox 05/12/21 08:23 36.5 C 85 20 138/79 H 99 Intake & Output: Intake & Output 05/09/21 05/10/21 05/11/21 05/12/21 23:59 23:59 23:59 23:59 Intake Total 822 890 530 80 Output Total 750 425 675 200 Balance 72 465 -145 -120 - Objective General Appearance: positive: No acute distress, Alert Eyes Bilateral: positive: Normal inspection, Conjunctivae nml ENT: positive: ENT inspection nml Neck: positive: Nml inspection Respiratory: positive: Chest non-tender, No respiratory distress. negative: Wheezes, Rales Cardiovascular: positive: Irregularly irregular. negative: Tachycardia, Systolic murmur Back: negative: CVA tenderness (R), CVA tenderness (L) Skin: positive: Warm, Dry Extremities: positive: No pedal edema Neurologic/Psychiatric: positive: Other (He still has decreased motor strength in his left upper extremity with fine motor movements.). negative: Disoriented to person, Disoriented to place - Lab Results Fish Bones: 05/12/21 08:31 05/12/21 08:31 Other Labs: Lab Results x24hrs 05/12/21 05/12/21 05/12/21 Range/Units 11:44 08:31 08:31 WBC (4.8-10.8) x10^3/uL RBC (4.70-6.10) 10^6/uL Hgb (14.0-18.0) g/dL Hct (42.0-52.0) % MCV (80.0-94.0) fL MCH (27.0-31.0) pg MCHC (32.0-36.0) g/dL RDW (12.0-15.0) % Plt Count (130-450) 10^3/uL MPV (7.4-11.4) fL Neut # (Auto) (1.5-6.6) 10^3/uL Lymph # (Auto) (1.5-3.5) 10^3/uL [place] # (Auto) (0.0-1.0) 10^3/uL Eos # (Auto) (0.0-0.7) 10^3/uL Baso # (Auto) (0.0-0.1) 10^3/uL Absolute Nucleated RBC x10^3/uL Nucleated RBC % /100WBC Sodium 138 (135-145) mmol/L Potassium 3.8 (3.5-5.0) mmol/L Chloride 103 (101-111) mmol/L Carbon Dioxide 26 (21-32) mmol/L Anion Gap 9.0 (6-13) BUN 15 (6-20) mg/dL Creatinine 0.9 (0.6-1.2) mg/dL Estimated GFR (MDRD) 81 L (>89) Glucose 109 H (70-100) mg/dL Calcium 8.8 (8.5-10.3) mg/dL Troponin I High Sens 6.0 6.1 (2.3-19.7) ng/L 05/12/21 Range/Units 08:31 WBC 5.1 (4.8-10.8) x10^3/uL RBC 3.77 L (4.70-6.10) 10^6/uL Hgb 10.9 L (14.0-18.0) g/dL Hct 33.3 L (42.0-52.0) % MCV 88.3 (80.0-94.0) fL MCH 28.9 (27.0-31.0) pg MCHC 32.7 (32.0-36.0) g/dL RDW 12.9 (12.0-15.0) % Plt Count 306 (130-450) 10^3/uL MPV 8.8 (7.4-11.4) fL Neut # (Auto) 3.2 (1.5-6.6) 10^3/uL Lymph # (Auto) 1.2 L (1.5-3.5) 10^3/uL [place] # (Auto) 0.4 (0.0-1.0) 10^3/uL Eos # (Auto) 0.3 (0.0-0.7) 10^3/uL Baso # (Auto) 0.1 (0.0-0.1) 10^3/uL Absolute Nucleated RBC 0.00 x10^3/uL Nucleated RBC % 0.0 /100WBC Sodium (135-145) mmol/L Potassium (3.5-5.0) mmol/L Chloride (101-111) mmol/L Carbon Dioxide (21-32) mmol/L Anion Gap (6-13) BUN (6-20) mg/dL Creatinine (0.6-1.2) mg/dL Estimated GFR (MDRD) (>89) Glucose (70-100) mg/dL Calcium (8.5-10.3) mg/dL Troponin I High Sens (2.3-19.7) ng/L ABX Reporting Has patient been on IV antibiotics over the past 48 hours?: No Assessment/Plan - Problem List (1) Chest pain Impression: The etiology of this is not clear. This may potentially musculoskeletal or referred pain. Low suspicion for ACS. EKG did not suggest ischemia. Troponins were trended and have remained within normal limits. Chest x-ray revealed no acute abnormalities and no evidence of widened mediastinum to suggest dissection. He is currently chest pain-free. We will continue to monitor at this time. If he has recurrence of chest pain then we will need to consider a CT angiogram. (2) Back pain Impression: This appears be musculoskeletal. This improved with the use of Robaxin. We have also started a lidocaine patch. He is no longer tender we will continue to monitor. No history of trauma and so we will hold off on imaging. Qualifiers: Back pain location: low back pain Chronicity: acute Back pain laterality: left (3) Delirium Impression: He has been doing quite well over the past 48 hours from a delirium perspective. No evidence of sundowning at this time although he is still at risk for this. We will continue to avoid sedatives. (4) Seizure as late effect of cerebrovascular accident (CVA) Impression: Stable. We will continue the current dose of Trileptal and Keppra. (5) Left-sided muscle weakness Impression: He still appears to have minor left-sided deficits with fine motor skills. 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 MRI showed no evidence of infarct. At this point he is medically cleared for discharge. He was evaluated by physical therapy and SNF is recommended. (6) Afib Impression: He remains rate controlled on carvedilol. We will continue Eliquis. (7) Cardiomyopathy Impression: He has a history of heart failure with reduced ejection fraction but now his EF is preserved. We will continue carvedilol and lisinopril. (8) BPH (benign prostatic hyperplasia) Impression: Continue with Flomax, finasteride. Rodriguez catheter will remain in place for the time being. (9) UTI (urinary tract infection) Impression: He completed treatment with ciprofloxacin.
[2021-05-12] MEDS: ATORVASTATIN 40 MG TABLET PO SCH (19:37)
[2021-05-13] MEDS: IBUPROFEN 400 MG TABLET PO PRN (01:25)
[2021-05-13] MEDS: SODIUM CHLORIDE FLUSH 0.9% 10 ML SYRINGE IVP SCH ×4 (01:49→21:28)
[2021-05-13] MEDS: POTASSIUM CHLORIDE 20 MEQ/15 ML UDC PO SCH (08:22)
[2021-05-13] MEDS: OXcarbazepine 150 MG TABLET PO SCH ×2 (08:23→21:22)
[2021-05-13] MEDS: levETIRAcetam 250 MG TABLET PO SCH ×2 (08:24→21:22)
[2021-05-13] MEDS: ACETAMINOPHEN 500 MG TABLET PO PRN ×2 (08:25→16:45)
[2021-05-13] MEDS: TAMSULOSIN 0.4 MG CAPSULE PO SCH (08:26)
[2021-05-13] MEDS: APIXABAN 5 MG TABLET PO SCH ×2 (08:26→21:22)
[2021-05-13] MEDS: carvediloL 3.125 MG TABLET PO SCH ×2 (08:26→21:22)
[2021-05-13] MEDS: FINASTERIDE 5 MG TABLET PO SCH ×2 (08:26→21:22)
[2021-05-13] MEDS: SENNA 8.6 MG TABLET PO SCH (08:26)
[2021-05-13] MEDS: MULTIVITAMIN W/MINERALS TABLET PO SCH (08:26)
[2021-05-13] MEDS: polyethylene glycoL 3350 17 GM PACKET PO SCH (08:27)
[2021-05-13] MEDS: DOCUSATE SODIUM 250 MG CAPSULE PO SCH (08:27)
[2021-05-13] MEDS: lisinopriL 20 MG TABLET PO SCH (08:27)
[2021-05-13] MEDS ORDERED: MORPHINE 2 MG/ML CARPUJECT IVP STA (08:57)
[2021-05-13] MEDS: HYDROmorphone 0.5 MG/0.5 ML SYRINGE IVP PRN (16:44)
--- NOTE | 2021-05-13 17:01 | PROVIDER PROGRESS NOTE ---
Subjective - Prog Note Date Prog Note Date: 05/13/21 - Subjective Subjective: He is complaining of left-sided neck pain this morning and was asking for a warm towel and Tylenol. This lasts about 30 minutes and then resolved. He complains of no chest pain or back pain. Current Medications - Current Medications Current Medications: Active Medications Acetaminophen (Acetaminophen 500 Mg Tablet) 1,000 mg PO Q6H PRN PRN Reason: Pain or Fever > 38C (100.4F) Last Admin: 05/13/21 16:45 Dose: 1,000 mg Documented by: Apixaban (Apixaban 5 Mg Tablet) 5 mg PO BID [facility] Last Admin: 05/13/21 08:26 Dose: 5 mg Documented by: Atorvastatin Calcium (Atorvastatin 40 Mg Tablet) 40 mg PO QPM [facility] Last Admin: 05/12/21 19:37 Dose: 40 mg Documented by: Carvedilol (Carvedilol 3.125 Mg Tablet) 3.125 mg PO BID [facility] Last Admin: 05/13/21 08:26 Dose: 3.125 mg Documented by: Docusate Sodium (Docusate Sodium 250 Mg Capsule) 250 - 500 mg PO DAILY [facility] Last Admin: 05/13/21 08:27 Dose: 250 mg Documented by: Finasteride (Finasteride 5 Mg Tablet) 5 mg PO BID [facility] Last Admin: 05/13/21 08:26 Dose: 5 mg Documented by: Hydromorphone HCl (Hydromorphone 0.5 Mg/0.5 Ml Syringe) 0.5 mg IVP Q2H PRN PRN Reason: PAIN Last Admin: 05/13/21 16:44 Dose: 0.5 mg Documented by: Ibuprofen (Ibuprofen 400 Mg Tablet) 400 mg PO Q6HR PRN PRN Reason: PAIN Last Admin: 05/13/21 01:25 Dose: 400 mg Documented by: Levetiracetam (Levetiracetam 250 Mg Tablet) 1,000 mg PO BID [facility] Last Admin: 05/13/21 08:24 Dose: 1,000 mg Documented by: Lisinopril (Lisinopril 20 Mg Tablet) 20 mg PO DAILY [facility] Last Admin: 05/13/21 08:27 Dose: 20 mg Documented by: Multivitamins/Minerals (Multivitamin W/Minerals Tablet) 1 tab PO DAILYWM [facility] Last Admin: 05/13/21 08:26 Dose: 1 tab Documented by: Ondansetron HCl (Ondansetron 4 Mg/2 Ml Vial) 4 mg IVP Q6HR PRN PRN Reason: Nausea / Vomiting Last Admin: 04/19/21 18:02 Dose: 4 mg Documented by: Oxcarbazepine (Oxcarbazepine 150 Mg Tablet) 600 mg PO BID [facility] Last Admin: 05/13/21 08:23 Dose: 600 mg Documented by: Polyethylene Glycol (Polyethylene Glycol 3350 17 Gm Packet) 17 gm PO DAILY [facility] Last Admin: 05/13/21 08:27 Dose: 17 gm Documented by: Potassium Chloride (Potassium Chloride 20 Meq/15 Ml Udc) 10 meq PO DAILYWM [facility] Last Admin: 05/13/21 08:22 Dose: 10 meq Documented by: Senna (Senna 8.6 Mg Tablet) 8.6 - 17.2 mg PO DAILY [facility] Last Admin: 05/13/21 08:26 Dose: 8.6 mg Documented by: Sodium Chloride (Sodium Chloride Flush 0.9% 10 Ml Syringe) 10 ml IVP PRN PRN PRN Reason: NEEDED PER PROVIDER ORDERS Last Admin: 05/07/21 18:07 Dose: 10 ml Documented by: Sodium Chloride (Sodium Chloride Flush 0.9% 10 Ml Syringe) 10 ml IVP 0100,0900,1700 [facility] Last Admin: 05/13/21 16:45 Dose: 10 ml Documented by: Tamsulosin HCl (Tamsulosin 0.4 Mg Capsule) 0.4 mg PO DAILY [facility] Last Admin: 05/13/21 08:26 Dose: 0.4 mg Documented by: Apixaban [Eliquis] 1 tab PO DAILY 04/13/21 Finasteride [Proscar] 5 mg PO DAILY 04/13/21 Lisinopril [Zestril] 20 mg PO DAILY 04/13/21 Tamsulosin [Flomax] 0.4 mg PO DAILY 04/13/21 Objective - Vital Signs/Intake & Output Reviewed Vital Signs: Yes Vital Signs: Vital Signs x48h Temp Pulse Resp BP Pulse Ox 05/13/21 14:00 36.2 C L 79 16 141/93 H 99 Intake & Output: Intake & Output 05/10/21 05/11/21 05/12/21 05/13/21 23:59 23:59 23:59 23:59 Intake Total 890 530 560 240 Output Total 425 675 600 400 Balance 465 -145 -40 -160 - Objective General Appearance: positive: No acute distress, Alert Eyes Bilateral: positive: Normal inspection, Conjunctivae nml ENT: positive: ENT inspection nml Neck: positive: Nml inspection, Other (No cervical spine or paraspinal tenderness.). negative: Stiff neck Respiratory: positive: No respiratory distress. negative: Wheezes, Rales Cardiovascular: positive: Irregularly irregular. negative: Tachycardia Skin: positive: Warm, Dry Extremities: positive: No pedal edema Neurologic/Psychiatric: positive: Other (He still has left upper extremity weakness with fine motor movements.). negative: Disoriented to person, Disoriented to place, Disoriented to time - Lab Results Fish Bones: 05/12/21 08:31 05/12/21 08:31 Assessment/Plan - Problem List (1) Delirium Impression: This is resolved. He still at risk for ing but he has been doing well each night. Continue to limit sedatives. (2) Neck pain Impression: His neck pain this morning has resolved. This is likely musculoskeletal. His exam is unremarkable and this resolved with Tylenol. (3) Chest pain Impression: This is resolved. His EKG did not suggest ischemia. Troponins were within normal limits. He has not had return of this chest pain. We will continue to monitor. (4) Back pain Impression: This slightly musculoskeletal and has resolved. We will continue with lidocaine patch and Tylenol as needed. Qualifiers: Back pain location: low back pain Chronicity: acute Back pain laterality: left (5) Seizure as late effect of cerebrovascular accident (CVA) Impression: Stable. We will continue the current dose of Trileptal and Keppra. (6) Left-sided muscle weakness Impression: He still appears to have minor left-sided deficits with fine motor skills. 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 MRI showed no evidence of infarct. At this point he is medically cleared for discharge. He was evaluated by physical therapy and SNF is recommended. (7) Afib Impression: He remains rate controlled on carvedilol. We will continue Eliquis. (8) Cardiomyopathy Impression: He has a history of heart failure with reduced ejection fraction but now his EF is preserved. We will continue carvedilol and lisinopril. (9) BPH (benign prostatic hyperplasia) Impression: Continue with Flomax, finasteride. Rodriguez catheter will remain in place for the time being. (10) UTI (urinary tract infection) Impression: He completed treatment with ciprofloxacin.
[2021-05-13] MEDS: ATORVASTATIN 40 MG TABLET PO SCH (21:21)
[2021-05-14] MEDS: POTASSIUM CHLORIDE 20 MEQ/15 ML UDC PO SCH (08:04)
[2021-05-14] MEDS: polyethylene glycoL 3350 17 GM PACKET PO SCH (08:05)
[2021-05-14] MEDS: OXcarbazepine 150 MG TABLET PO SCH ×2 (08:50→21:34)
[2021-05-14] MEDS: levETIRAcetam 250 MG TABLET PO SCH ×2 (08:50→21:34)
[2021-05-14] MEDS: carvediloL 3.125 MG TABLET PO SCH ×2 (08:54→21:34)
[2021-05-14] MEDS: APIXABAN 5 MG TABLET PO SCH ×2 (08:54→21:34)
[2021-05-14] MEDS: lisinopriL 20 MG TABLET PO SCH (08:55)
[2021-05-14] MEDS: SENNA 8.6 MG TABLET PO SCH (08:59)
[2021-05-14] MEDS: FINASTERIDE 5 MG TABLET PO SCH ×2 (09:00→21:34)
[2021-05-14] MEDS: DOCUSATE SODIUM 250 MG CAPSULE PO SCH (09:02)
[2021-05-14] MEDS: MULTIVITAMIN W/MINERALS TABLET PO SCH (09:03)
[2021-05-14] MEDS: TAMSULOSIN 0.4 MG CAPSULE PO SCH (09:06)
[2021-05-14] MEDS: SODIUM CHLORIDE FLUSH 0.9% 10 ML SYRINGE IVP SCH ×2 (09:07→17:57)
[2021-05-14] MEDS: ONDANSETRON 4 MG/2 ML VIAL IVP PRN (09:43)
[2021-05-14] MEDS: SODIUM CHLORIDE FLUSH 0.9% 10 ML SYRINGE IVP PRN (09:44)
[2021-05-14] MEDS ORDERED: SALINE ENEMA 133 ML BOTTLE RC SCH (11:00)
[2021-05-14] MEDS: MAGNESIUM OXIDE 400 MG TABLET PO SCH (12:23)
--- NOTE | 2021-05-14 13:52 | PROVIDER PROGRESS NOTE ---
Assessment/Plan - Problem List (1) Constipation Assessment/Plan: He has been getting House bowel program, but no BMs now for 6 days. Will order Fleets enema and oral Mag (2) Seizure as late effect of cerebrovascular accident (CVA) Impression: This was the reason for admission (then he had several different complications). Stabilized for the past several days. We will continue the current dose of Trileptal and Keppra. (3) Left-sided muscle weakness Impression: He still appears to have minor left-sided deficits with fine motor skills. 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 MRI showed no evidence of acute stroke. At this point he is medically cleared for discharge. He was evaluated by physical therapy and SNF is recommended. (4) Afib Impression: He remains rate controlled on carvedilol. We will continue Eliquis. (5) Cardiomyopathy Impression: He has a history of heart failure with reduced ejection fraction but now his EF is preserved. We will continue carvedilol and lisinopril. (6) BPH (benign prostatic hyperplasia) Impression: Continue with Flomax, finasteride. Rodriguez catheter will remain in place for the time being. (7) UTI (urinary tract infection) Impression: He completed treatment with ciprofloxacin. (8) Delirium Impression: This has resolved. He still at risk for sundowning but he has been doing well each night. Continue to limit sedatives. (9) Neck pain Impression: His neck pain has resolved. This is likely musculoskeletal, it resolved with Tylenol. (10) Chest pain Impression: This has resolved. His EKG did not suggest ischemia. Troponins were within normal limits. He has not had return of this chest pain. We will continue to monitor. (11) Back pain Impression: This slightly musculoskeletal and has resolved. We will continue with lidocaine patch and Tylenol as needed. Qualifiers: Back pain location: low back pain Chronicity: acute Back pain laterality: left - Current Meds Current Meds: Current Medications Generic Name Dose Route Start Last Admin Trade Name Freq PRN Reason Stop Dose Admin Acetaminophen 1,000 mg 04/16/21 15:44 05/13/21 16:45 Acetaminophen 500 Mg Tablet PO 1,000 mg Q6H PRN Administration Pain or Fever > 38C (100.4F) Apixaban 5 mg 04/27/21 21:00 05/14/21 08:54 Apixaban 5 Mg Tablet PO 5 mg BID PHAN Administration Atorvastatin Calcium 40 mg 04/19/21 21:00 05/13/21 21:21 Atorvastatin 40 Mg Tablet PO 40 mg QPM PHAN Administration Carvedilol 3.125 mg 04/19/21 12:00 05/14/21 08:54 Carvedilol 3.125 Mg Tablet PO 3.125 mg BID PHAN Administration Docusate Sodium 250 - 500 mg 04/16/21 09:00 05/14/21 09:02 Docusate Sodium 250 Mg Capsule PO 250 mg DAILY PHAN Administration Finasteride 5 mg 04/17/21 21:00 05/14/21 09:00 Finasteride 5 Mg Tablet PO 5 mg BID PHAN Administration Hydromorphone HCl 0.5 mg 04/25/21 15:10 05/13/21 16:44 Hydromorphone 0.5 Mg/0.5 Ml Syringe IVP 0.5 mg Q2H PRN Administration PAIN Ibuprofen 400 mg 05/08/21 10:25 05/13/21 01:25 Ibuprofen 400 Mg Tablet PO 400 mg Q6HR PRN Administration PAIN Levetiracetam 1,000 mg 05/05/21 22:00 05/14/21 08:50 Levetiracetam 250 Mg Tablet PO 1,000 mg BID PHAN Administration Lisinopril 20 mg 04/20/21 09:00 05/14/21 08:55 Lisinopril 20 Mg Tablet PO 20 mg DAILY PHAN Administration Magnesium Oxide 400 mg 05/14/21 12:00 05/14/21 12:23 Magnesium Oxide 400 Mg Tablet PO 400 mg DAILYWM PHAN Administration Multivitamins/Minerals 1 tab 04/18/21 12:00 05/14/21 09:03 Multivitamin W/Minerals Tablet PO 1 tab DAILYWM PHAN Administration Ondansetron HCl 4 mg 04/13/21 17:14 05/14/21 09:43 Ondansetron 4 Mg/2 Ml Vial IVP 4 mg Q6HR PRN Administration Nausea / Vomiting Oxcarbazepine 600 mg 05/09/21 21:00 05/14/21 08:50 Oxcarbazepine 150 Mg Tablet PO 600 mg BID PHAN Administration Polyethylene Glycol 17 gm 04/16/21 09:00 05/14/21 08:05 Polyethylene Glycol 3350 17 Gm Packet PO 17 gm DAILY PHAN Administration Potassium Chloride 10 meq 05/10/21 08:00 05/14/21 08:04 Potassium Chloride 20 Meq/15 Ml Udc PO 10 meq DAILYWM PHAN Administration Senna 8.6 - 17.2 mg 04/16/21 09:00 05/14/21 08:59 Senna 8.6 Mg Tablet PO 8.6 mg DAILY PHAN Administration Sodium Chloride 10 ml 04/13/21 17:14 05/14/21 09:44 Sodium Chloride Flush 0.9% 10 Ml Syringe IVP 10 ml PRN PRN Administration NEEDED PER PROVIDER ORDERS Sodium Chloride 10 ml 04/14/21 01:00 05/14/21 09:07 Sodium Chloride Flush 0.9% 10 Ml Syringe IVP 10 ml 0100,0900,1700 PHAN Administration Tamsulosin HCl 0.4 mg 04/14/21 09:00 05/14/21 09:06 Tamsulosin 0.4 Mg Capsule PO 0.4 mg DAILY PHAN Administration - Lab Result Fish Bone Diagrams: 05/12/21 08:31 05/12/21 08:31 - Additional Planning My Orders: My Active Orders 05/14/21 12:00 Magnesium Oxide [Mag Ox] 400 mg PO DAILYWM Subjective - Subjective Patient Reports: Resting Comfortably Nursing Reports: Constipation (No BM since 05/08/21 (6 days)) Objective Vital Signs: Vital Signs - 24 hr 05/13/21 05/13/21 05/14/21 14:00 23:43 07:57 Temperature 36.2 C L 36.6 C 36.7 C Heart Rate [ 79 73 82 Brachial] Respiratory 16 18 18 Rate Blood Pressure 141/93 H [Right Brachial artery] Blood Pressure 116/94 H 133/52 H [Right Radial artery] O2 Saturation 99 98 97 Oxygen O2 Source Room air I&O (Last 24 Hrs): Intake and Output Totals x24h 05/12/21 05/13/21 05/14/21 23:59 23:59 23:59 Intake Total 560 440 100 Output Total 600 400 250 Balance -40 40 -150 General: Alert HEENT: Mucous membr. moist/pink Neck: Supple Neuro: Alert, Other (L side weak) Cardiovascular: No murmurs Respiratory: No respiratory distress Abdomen: Soft Extremities: No edema - Results Results: Laboratory Results WBC 5.1 x10^3/uL (4.8-10.8) 05/12/21 08:31 RBC 3.77 10^6/uL (4.70-6.10) L 05/12/21 08:31 Hgb 10.9 g/dL (14.0-18.0) L 05/12/21 08:31 Hct 33.3 % (42.0-52.0) L 05/12/21 08:31 MCV 88.3 fL (80.0-94.0) 05/12/21 08:31 MCH 28.9 pg (27.0-31.0) 05/12/21 08: MCHC 32.7 g/dL (32.0-36.0) 05/12/21 08:31 RDW 12.9 % (12.0-15.0) 05/12/21 08:31 Plt Count 306 10^3/uL (130-450) 05/12/21 08:31 MPV 8.8 fL (7.4-11.4) 05/12/21 08:31 Neut # (Auto) 3.2 10^3/uL (1.5-6.6) 05/12/21 08:31 Lymph # (Auto) 1.2 10^3/uL (1.5-3.5) L 05/12/21 08:31 [place] # (Auto) 0.4 10^3/uL (0.0-1.0) 05/12/21 08:31 Eos # (Auto) 0.3 10^3/uL (0.0-0.7) 05/12/21 08:31 Baso # (Auto) 0.1 10^3/uL (0.0-0.1) 05/12/21 08:31 Absolute Nucleated RBC 0.00 x10^3/uL 05/12/21 08:31 Total Counted 100 04/22/21 10:26 Band Neuts % (Manual) 1 % (0-10) 04/22/21 10:26 Abnorm Lymph % (Manual) 0 % 04/22/21 10:26 Nucleated RBC % 0.0 /100WBC 05/12/21 08:31 Neutrophils # (Manual) 37.9 10^3/uL (1.5-6.6) H 04/22/21 10:26 Lymphocytes # (Manual) 0.0 10^3/uL (1.5-3.5) L 04/22/21 10:26 Monocytes # (Manual) 0.8 10^3/uL (0.0-1.0) 04/22/21 10:26 Eosinophils # (Manual) 0.0 10^3/uL (0-0.7) 04/22/21 10:26 Basophils # (Manual) 0.0 10^3/uL (0-0.1) 04/22/21 10:26 Differential Comment MANUAL DIFFERENTIAL 04/22/21 10:26 WBC Morphology NORMAL APPEARANCE (NORMAL) 04/22/21 04:40 Platelet Estimate NORMAL (130-450,000) (NORMAL) 04/22/21 10:26 Platelet Morphology NORMAL APPEARANCE (NORMAL) 04/22/21 10:26 RBC Morph Micro Appear NORMAL APPEARANCE (NORMAL) 04/22/21 10:26 Sodium 138 mmol/L (135-145) 05/12/21 08:31 Potassium 3.8 mmol/L (3.5-5.0) 05/12/21 08:31 Chloride 103 mmol/L (101-111) 05/12/21 08:31 Carbon Dioxide 26 mmol/L (21-32) 05/12/21 08:31 Anion Gap 9.0 (6-13) 05/12/21 08:31 BUN 15 mg/dL (6-20) 05/12/21 08:31 Creatinine 0.9 mg/dL (0.6-1.2) 05/12/21 08:31 Estimated GFR (MDRD) 81 (>89) L 05/12/21 08:31 Glucose 109 mg/dL (70-100) H 05/12/21 08:31 POC Whole Bld Glucose 128 mg/dL (70 - 100) H 04/28/21 10:17 Calcium 8.8 mg/dL (8.5-10.3) 05/12/21 08:31 Magnesium 1.9 mg/dL (1.7-2.8) 05/03/21 04:27 Total Bilirubin 0.8 mg/dL (0.2-1.0) 04/13/21 13:10 AST 14 IU/L (10-42) 04/13/21 13:10 ALT 12 IU/L (10-60) 04/13/21 13:10 Alkaline Phosphatase 92 IU/L (42-121) 04/13/21 13:10 Troponin I High Sens 6.0 ng/L (2.3-19.7) 05/12/21 11:44 Total Protein 6.4 g/dL (6.7-8.2) L 04/13/21 13:10 Albumin 3.8 g/dL (3.2-5.5) 04/13/21 13:10 Globulin 2.6 g/dL (2.1-4.2) 04/13/21 13:10 Albumin/Globulin Ratio 1.5 (1.0-2.2) 04/13/21 13:10 Urine Color DARK YELLOW 04/22/21 12:01 Urine Clarity HAZY (CLEAR) 04/22/21 12:01 Urine pH 5.0 PH (5.0-7.5) 04/22/21 12:01 Ur Specific [place] >=1.030 (1.002-1.030) H 04/22/21 12:01 Urine Protein 30 mg/dL (NEGATIVE) H 04/22/21 12:01 Urine Glucose (UA) NEGATIVE mg/dL (NEGATIVE) 04/22/21 12:01 Urine Ketones TRACE mg/dL (NEGATIVE) 04/22/21 12:01 Urine Occult Blood LARGE (NEGATIVE) H 04/22/21 12:01 Urine Nitrite POSITIVE (NEGATIVE) H 04/22/21 12:01 Urine Bilirubin SMALL (NEGATIVE) H 04/22/21 12:01 Urine Urobilinogen 1 (NORMAL) E.U./dL (NORMAL) 04/22/21 12:01 Ur Leukocyte Esterase SMALL (NEGATIVE) H 04/22/21 12:01 Urine RBC TNTC /HPF (0-5) H 04/22/21 12:01 Urine WBC >25 /HPF (0-3) H 04/22/21 12:01 Ur Squamous Epith Cells RARE Squamous (<= Few) 04/22/21 12:01 Amorphous Sediment Few /LPF 04/15/21 11:50 Urine Bacteria Moderate /HPF (None Seen) H 04/22/21 12:01 Urine Mucus Moderate Strands 04/22/21 12:01 Urine Culture Comments INDICATED 04/22/21 12:01 Nasal Adenovirus (PCR) NOT DETECTED 04/13/21 16:48 Nasal B. parapertussis DNA (PCR) NOT DETECTED 04/13/21 16:48 Nasal Coronavir 229E PCR NOT DETECTED 04/13/21 16:48 Nasal Coronavir HKU1 PCR NOT DETECTED 04/13/21 16:48 Nasal Coronavir NL63 PCR NOT DETECTED 04/13/21 16:48 Nasal Coronavir OC43 PCR NOT DETECTED 04/13/21 16:48 Nasal Enterovir/Rhinovir PCR NOT DETECTED 04/13/21 16:48 Nasal Influenza B PCR NOT DETECTED 04/13/21 16:48 Nasal Influenza A PCR NOT DETECTED 04/13/21 16:48 Nasal Parainfluen 1 PCR NOT DETECTED 04/13/21 16:48 Nasal Parainfluen 2 PCR NOT DETECTED 04/13/21 16:48 Nasal Parainfluen 3 PCR NOT DETECTED 04/13/21 16:48 Nasal Parainfluen 4 PCR NOT DETECTED 04/13/21 16:48 Nasal RSV (PCR) NOT DETECTED 04/13/21 16:48 Nasal B.pertussis DNA PCR NOT DETECTED 04/13/21 16:48 Nasal C.pneumoniae (PCR) NOT DETECTED 04/13/21 16:48 Mian Human Metapneumo PCR NOT DETECTED 04/13/21 16:48 Nasal M.pneumoniae (PCR) NOT DETECTED 04/13/21 16:48 Nasal SARS-CoV-2 (PCR) NOT DETECTED 04/13/21 16:48 Levetiracetam 28.3 mcg/mL 04/25/21 12:24 Ethyl Alcohol < 5.0 mg/dL 04/13/21 13:10
[2021-05-14] MEDS: ATORVASTATIN 40 MG TABLET PO SCH (21:35)
[2021-05-15] MEDS: SODIUM CHLORIDE FLUSH 0.9% 10 ML SYRINGE IVP SCH ×3 (00:32→19:21)
[2021-05-15] MEDS ORDERED: LACTULOSE 10 GM /15 ML UDC PO STA (08:07)
[2021-05-15] MEDS: POTASSIUM CHLORIDE 20 MEQ/15 ML UDC PO SCH (08:13)
[2021-05-15] MEDS: MAGNESIUM CITRATE 296 ML BOTTLE PO ONE ×2 (08:14→19:33)
[2021-05-15] MEDS: polyethylene glycoL 3350 17 GM PACKET PO SCH (08:14)
[2021-05-15] MEDS: OXcarbazepine 150 MG TABLET PO SCH ×2 (08:15→19:23)
[2021-05-15] MEDS: levETIRAcetam 250 MG TABLET PO SCH ×2 (08:16→19:22)
[2021-05-15] MEDS: carvediloL 3.125 MG TABLET PO SCH ×2 (08:19→19:23)
[2021-05-15] MEDS: FINASTERIDE 5 MG TABLET PO SCH ×2 (08:20→19:25)
[2021-05-15] MEDS: lisinopriL 20 MG TABLET PO SCH (08:20)
[2021-05-15] MEDS: APIXABAN 5 MG TABLET PO SCH ×2 (08:21→19:26)
[2021-05-15] MEDS: TAMSULOSIN 0.4 MG CAPSULE PO SCH (08:22)
[2021-05-15] MEDS: MAGNESIUM OXIDE 400 MG TABLET PO SCH (08:22)
[2021-05-15] MEDS: SENNA 8.6 MG TABLET PO SCH ×2 (08:22→19:25)
[2021-05-15] MEDS: MULTIVITAMIN W/MINERALS TABLET PO SCH (08:24)
[2021-05-15] MEDS: DOCUSATE SODIUM 250 MG CAPSULE PO SCH ×2 (08:27→19:26)
--- NOTE | 2021-05-15 11:53 | PROVIDER PROGRESS NOTE ---
Assessment/Plan - Problem List (1) Constipation Assessment/Plan: He has been getting House bowel program, but no BMs now for 7 days. he refused a Fleets enema yesterday Oral Mag citrate and a Lctulose dose x1 will be ordered. (2) Seizure as late effect of cerebrovascular accident (CVA) Impression: This was the reason for admission (then he had several different complications). Stabilized for the past several days. We will continue the current dose of Trileptal and Keppra. (3) Left-sided muscle weakness Impression: He still appears to have minor left-sided deficits with fine motor skills. 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 MRI showed no evidence of acute stroke. At this point he is medically cleared for discharge. He was evaluated by physical therapy and SNF is recommended. (4) Afib Impression: He remains rate controlled on carvedilol. We will continue Eliquis. (5) Cardiomyopathy Impression: He has a history of heart failure with reduced ejection fraction but now his EF is preserved. We will continue carvedilol and lisinopril. (6) BPH (benign prostatic hyperplasia) Impression: Continue with Flomax, finasteride. Rodriguez catheter will remain in place for the time being. (7) UTI (urinary tract infection) Impression: He completed treatment with ciprofloxacin. (8) Delirium Impression: This has resolved. He still at risk for ing but he has been doing well each night. Continue to limit sedatives. (9) Neck pain Impression: His neck pain has resolved. This is likely musculoskeletal, it resolved with Tylenol. (10) Chest pain Impression: This has resolved. His EKG did not suggest ischemia. Troponins were within normal limits. He has not had return of this chest pain. We will continue to monitor. (11) Back pain Impression: This slightly musculoskeletal and has resolved. We will continue with lidocaine patch and Tylenol as needed. Qualifiers: Back pain location: low back pain Chronicity: acute Back pain laterality: left - Current Meds Current Meds: Current Medications Generic Name Dose Route Start Last Admin Trade Name Freq PRN Reason Stop Dose Admin Acetaminophen 1,000 mg 04/16/21 15:44 05/13/21 16:45 Acetaminophen 500 Mg Tablet PO 1,000 mg Q6H PRN Administration Pain or Fever > 38C (100.4F) Apixaban 5 mg 04/27/21 21:00 05/15/21 08:21 Apixaban 5 Mg Tablet PO 5 mg BID PHAN Administration Atorvastatin Calcium 40 mg 04/19/21 21:00 05/14/21 21:35 Atorvastatin 40 Mg Tablet PO 40 mg QPM PHAN Administration Carvedilol 3.125 mg 04/19/21 12:00 05/15/21 08:19 Carvedilol 3.125 Mg Tablet PO 3.125 mg BID PHAN Administration Docusate Sodium 250 - 500 mg 04/16/21 09:00 05/15/21 08:27 Docusate Sodium 250 Mg Capsule PO 250 mg DAILY PHAN Administration Finasteride 5 mg 04/17/21 21:00 05/15/21 08:20 Finasteride 5 Mg Tablet PO 5 mg BID PHAN Administration Hydromorphone HCl 0.5 mg 04/25/21 15:10 05/13/21 16:44 Hydromorphone 0.5 Mg/0.5 Ml Syringe IVP 0.5 mg Q2H PRN Administration PAIN Ibuprofen 400 mg 05/08/21 10:25 05/13/21 01:25 Ibuprofen 400 Mg Tablet PO 400 mg Q6HR PRN Administration PAIN Levetiracetam 1,000 mg 05/05/21 22:00 05/15/21 08:16 Levetiracetam 250 Mg Tablet PO 1,000 mg BID PHAN Administration Lisinopril 20 mg 04/20/21 09:00 05/15/21 08:20 Lisinopril 20 Mg Tablet PO 20 mg DAILY PHAN Administration Magnesium Oxide 400 mg 05/14/21 12:00 05/15/21 08:22 Magnesium Oxide 400 Mg Tablet PO 400 mg DAILYWM PHAN Administration Multivitamins/Minerals 1 tab 04/18/21 12:00 05/15/21 08:24 Multivitamin W/Minerals Tablet PO 1 tab DAILYWM PHAN Administration Ondansetron HCl 4 mg 04/13/21 17:14 05/14/21 09:43 Ondansetron 4 Mg/2 Ml Vial IVP 4 mg Q6HR PRN Administration Nausea / Vomiting Oxcarbazepine 600 mg 05/09/21 21:00 05/15/21 08:15 Oxcarbazepine 150 Mg Tablet PO 600 mg BID PHAN Administration Polyethylene Glycol 17 gm 04/16/21 09:00 05/15/21 08:14 Polyethylene Glycol 3350 17 Gm Packet PO 17 gm DAILY PHAN Administration Potassium Chloride 10 meq 05/10/21 08:00 05/15/21 08:13 Potassium Chloride 20 Meq/15 Ml Udc PO 10 meq DAILYWM PHAN Administration Senna 8.6 - 17.2 mg 04/16/21 09:00 05/15/21 08:22 Senna 8.6 Mg Tablet PO 8.6 mg DAILY PHAN Administration Sodium Chloride 10 ml 04/13/21 17:14 05/14/21 09:44 Sodium Chloride Flush 0.9% 10 Ml Syringe IVP 10 ml PRN PRN Administration NEEDED PER PROVIDER ORDERS Sodium Chloride 10 ml 04/14/21 01:00 05/15/21 08:27 Sodium Chloride Flush 0.9% 10 Ml Syringe IVP 10 ml 0100,0900,1700 PHAN Administration Tamsulosin HCl 0.4 mg 04/14/21 09:00 05/15/21 08:22 Tamsulosin 0.4 Mg Capsule PO 0.4 mg DAILY PHAN Administration - Lab Result Fish Bone Diagrams: 05/12/21 08:31 05/12/21 08:31 - Additional Planning My Orders: My Active Orders 05/14/21 12:00 Magnesium Oxide [Mag Ox] 400 mg PO DAILYWM Subjective - Subjective Patient Reports: Resting Comfortably Nursing Reports: Other (No BM for 7 days, per RN) Objective Vital Signs: Vital Signs - 24 hr 05/14/21 05/14/21 05/15/21 16:18 21:22 00:14 Temperature 36.6 C 36.7 C Heart Rate [ 64 67 62 Brachial] Respiratory 17 16 Rate Blood Pressure 97/44 L 135/65 H 125/61 [Right Brachial artery] Blood Pressure [Right Radial artery] O2 Saturation 98 97 05/15/21 08:00 Temperature 36.8 C Heart Rate [ 85 Brachial] Respiratory 18 Rate Blood Pressure [Right Brachial artery] Blood Pressure 117/69 [Right Radial artery] O2 Saturation 98 Oxygen O2 Source Room air I&O (Last 24 Hrs): Intake and Output Totals x24h 05/13/21 05/14/21 05/15/21 23:59 23:59 23:59 Intake Total 440 490 Output Total 400 800 220 Balance 40 -310 -220 General: Alert HEENT: Mucous membr. moist/pink Neck: Supple, No JVD Neuro: Alert, Other (L hand weak) Cardiovascular: Regular rate Respiratory: No respiratory distress Abdomen: Soft Extremities: No edema - Results Results: Laboratory Results WBC 5.1 x10^3/uL (4.8-10.8) 05/12/21 08:31 RBC 3.77 10^6/uL (4.70-6.10) L 05/12/21 08:31 Hgb 10.9 g/dL (14.0-18.0) L 05/12/21 08:31 Hct 33.3 % (42.0-52.0) L 05/12/21 08:31 MCV 88.3 fL (80.0-94.0) 05/12/21 08:31 MCH 28.9 pg (27.0-31.0) 05/12/21 08:31 MCHC 32.7 g/dL (32.0-36.0) 05/12/21 08:31 RDW 12.9 % (12.0-15.0) 05/12/21 08:31 Plt Count 306 10^3/uL (130-450) 05/12/21 08:31 MPV 8.8 fL (7.4-11.4) 05/12/21 08:31 Neut # (Auto) 3.2 10^3/uL (1.5-6.6) 05/12/21 08:31 Lymph # (Auto) 1.2 10^3/uL (1.5-3.5) L 05/12/21 08:31 [place] # (Auto) 0.4 10^3/uL (0.0-1.0) 05/12/21 08:31 Eos # (Auto) 0.3 10^3/uL (0.0-0.7) 05/12/21 08:31 Baso # (Auto) 0.1 10^3/uL (0.0-0.1) 05/12/21 08:31 Absolute Nucleated RBC 0.00 x10^3/uL 05/12/21 08:31 Total Counted 100 04/22/21 10:26 Band Neuts % (Manual) 1 % (0-10) 04/22/21 10:26 Abnorm Lymph % (Manual) 0 % 04/22/21 10:26 Nucleated RBC % 0.0 /100WBC 05/12/21 08:31 Neutrophils # (Manual) 37.9 10^3/uL (1.5-6.6) H 04/22/21 10:26 Lymphocytes # (Manual) 0.0 10^3/uL (1.5-3.5) L 04/22/21 10:26 Monocytes # (Manual) 0.8 10^3/uL (0.0-1.0) 04/22/21 10:26 Eosinophils # (Manual) 0.0 10^3/uL (0-0.7) 04/22/21 10:26 Basophils # (Manual) 0.0 10^3/uL (0-0.1) 04/22/21 10:26 Differential Comment MANUAL DIFFERENTIAL 04/22/21 10:26 WBC Morphology NORMAL APPEARANCE (NORMAL) 04/22/21 04:40 Platelet Estimate NORMAL (130-450,000) (NORMAL) 04/22/21 10:26 Platelet Morphology NORMAL APPEARANCE (NORMAL) 04/22/21 10:26 RBC Morph Micro Appear NORMAL APPEARANCE (NORMAL) 04/22/21 10:26 Sodium 138 mmol/L (135-145) 05/12/21 08:31 Potassium 3.8 mmol/L (3.5-5.0) 05/12/21 08:31 Chloride 103 mmol/L (101-111) 05/12/21 08:31 Carbon Dioxide 26 mmol/L (21-32) 05/12/21 08:31 Anion Gap 9.0 (6-13) 05/12/21 08:31 BUN 15 mg/dL (6-20) 05/12/21 08:31 Creatinine 0.9 mg/dL (0.6-1.2) 05/12/21 08:31 Estimated GFR (MDRD) 81 (>89) L 05/12/21 08:31 Glucose 109 mg/dL (70-100) H 05/12/21 08:31 POC Whole Bld Glucose 128 mg/dL (70 - 100) H 04/28/21 10:17 Calcium 8.8 mg/dL (8.5-10.3) 05/12/21 08:31 Magnesium 1.9 mg/dL (1.7-2.8) 05/03/21 04:27 Total Bilirubin 0.8 mg/dL (0.2-1.0) 04/13/21 13:10 AST 14 IU/L (10-42) 04/13/21 13:10 ALT 12 IU/L (10-60) 04/13/21 13:10 Alkaline Phosphatase 92 IU/L (42-121) 04/13/21 13:10 Troponin I High Sens 6.0 ng/L (2.3-19.7) 05/12/21 11:44 Total Protein 6.4 g/dL (6.7-8.2) L 04/13/21 13:10 Albumin 3.8 g/dL (3.2-5.5) 04/13/21 13:10 Globulin 2.6 g/dL (2.1-4.2) 04/13/21 13:10 Albumin/Globulin Ratio 1.5 (1.0-2.2) 04/13/21 13:10 Urine Color DARK YELLOW 04/22/21 12:01 Urine Clarity HAZY (CLEAR) 04/22/21 12:01 Urine pH 5.0 PH (5.0-7.5) 04/22/21 12:01 Ur Specific [place] >=1.030 (1.002-1.030) H 04/22/21 12:01 Urine Protein 30 mg/dL (NEGATIVE) H 04/22/21 12:01 Urine Glucose (UA) NEGATIVE mg/dL (NEGATIVE) 04/22/21 12:01 Urine Ketones TRACE mg/dL (NEGATIVE) 04/22/21 12:01 Urine Occult Blood LARGE (NEGATIVE) H 04/22/21 12:01 Urine Nitrite POSITIVE (NEGATIVE) H 04/22/21 12:01 Urine Bilirubin SMALL (NEGATIVE) H 04/22/21 12:01 Urine Urobilinogen 1 (NORMAL) E.U./dL (NORMAL) 04/22/21 12:01 Ur Leukocyte Esterase SMALL (NEGATIVE) H 04/22/21 12:01 Urine RBC TNTC /HPF (0-5) H 04/22/21 12:01 Urine WBC >25 /HPF (0-3) H 04/22/21 12:01 Ur Squamous Epith Cells RARE Squamous (<= Few) 04/22/21 12:01 Amorphous Sediment Few /LPF 04/15/21 11:50 Urine Bacteria Moderate /HPF (None Seen) H 04/22/21 12:01 Urine Mucus Moderate Strands 04/22/21 12:01 Urine Culture Comments INDICATED 04/22/21 12:01 Nasal Adenovirus (PCR) NOT DETECTED 04/13/21 16:48 Nasal B. parapertussis DNA (PCR) NOT DETECTED 04/13/21 16:48 Nasal Coronavir 229E PCR NOT DETECTED 04/13/21 16:48 Nasal Coronavir HKU1 PCR NOT DETECTED 04/13/21 16:48 Nasal Coronavir NL63 PCR NOT DETECTED 04/13/21 16:48 Nasal Coronavir OC43 PCR NOT DETECTED 04/13/21 16:48 Nasal Enterovir/Rhinovir PCR NOT DETECTED 04/13/21 16:48 Nasal Influenza B PCR NOT DETECTED 04/13/21 16:48 Nasal Influenza A PCR NOT DETECTED 04/13/21 16:48 Nasal Parainfluen 1 PCR NOT DETECTED 04/13/21 16:48 Nasal Parainfluen 2 PCR NOT DETECTED 04/13/21 16:48 Nasal Parainfluen 3 PCR NOT DETECTED 04/13/21 16:48 Nasal Parainfluen 4 PCR NOT DETECTED 04/13/21 16:48 Nasal RSV (PCR) NOT DETECTED 04/13/21 16:48 Nasal B.pertussis DNA PCR NOT DETECTED 04/13/21 16:48 Nasal C.pneumoniae (PCR) NOT DETECTED 04/13/21 16:48 Mian Human Metapneumo PCR NOT DETECTED 04/13/21 16:48 Nasal M.pneumoniae (PCR) NOT DETECTED 04/13/21 16:48 Nasal SARS-CoV-2 (PCR) NOT DETECTED 04/13/21 16:48 Levetiracetam 28.3 mcg/mL 04/25/21 12:24 Ethyl Alcohol < 5.0 mg/dL 04/13/21 13:10
[2021-05-15] MEDS: IBUPROFEN 400 MG TABLET PO PRN (19:22)
[2021-05-15] MEDS: ATORVASTATIN 40 MG TABLET PO SCH (19:25)
[2021-05-16] MEDS: SODIUM CHLORIDE FLUSH 0.9% 10 ML SYRINGE IVP SCH ×3 (03:03→20:40)
[2021-05-16] MEDS: POTASSIUM CHLORIDE 20 MEQ/15 ML UDC PO SCH (09:19)
[2021-05-16] MEDS: FINASTERIDE 5 MG TABLET PO SCH ×2 (09:22→20:40)
[2021-05-16] MEDS: MAGNESIUM OXIDE 400 MG TABLET PO SCH (09:22)
[2021-05-16] MEDS: APIXABAN 5 MG TABLET PO SCH ×2 (09:22→20:41)
[2021-05-16] MEDS: TAMSULOSIN 0.4 MG CAPSULE PO SCH (09:22)
[2021-05-16] MEDS: MULTIVITAMIN W/MINERALS TABLET PO SCH (09:22)
[2021-05-16] MEDS: lisinopriL 20 MG TABLET PO SCH (09:23)
[2021-05-16] MEDS: levETIRAcetam 250 MG TABLET PO SCH ×2 (09:23→20:42)
[2021-05-16] MEDS: DOCUSATE SODIUM 250 MG CAPSULE PO SCH (09:24)
[2021-05-16] MEDS: polyethylene glycoL 3350 17 GM PACKET PO SCH (09:24)
[2021-05-16] MEDS: carvediloL 3.125 MG TABLET PO SCH ×2 (09:24→20:40)
[2021-05-16] MEDS: OXcarbazepine 150 MG TABLET PO SCH ×2 (09:24→20:41)
[2021-05-16] MEDS: SENNA 8.6 MG TABLET PO SCH (09:25)
[2021-05-16] MEDS: POTASSIUM CHLORIDE 10 MEQ CAPSULE PO SCH (12:15)
--- NOTE | 2021-05-16 14:44 | PROVIDER PROGRESS NOTE ---
Assessment/Plan - Problem List (1) Constipation Assessment/Plan: Resolved; pt had a large BM after midnite this last night. Continue bowel protocol. (2) Seizure as late effect of cerebrovascular accident (CVA) Impression: This was the reason for admission (then he had several different complications). Stabilized but gets occais L arm shaking and has L sided neglect. We will continue the current dose of Trileptal and Keppra. (3) Left-sided muscle weakness Impression: He still appears to have minor left-sided deficits with fine motor skills. 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 MRI showed no evidence of acute stroke. At this point he is medically cleared for discharge. He was evaluated by physical therapy and SNF is recommended. (4) Afib Impression: He remains rate controlled on carvedilol. We will continue Eliquis. (5) Cardiomyopathy Impression: He has a history of heart failure with reduced ejection fraction but now his EF is preserved. We will continue carvedilol and lisinopril. (6) BPH (benign prostatic hyperplasia) Impression: Continue with Flomax, finasteride. Rodriguez catheter will remain in place for the time being. (7) UTI (urinary tract infection) Impression: He completed treatment with ciprofloxacin. (8) Delirium Impression: This has resolved. He still at risk for sundowning but he has been doing well each night. Continue to limit sedatives. (9) Neck pain Impression: His neck pain has resolved. This is likely musculoskeletal, it resolved with Tylenol. (10) Chest pain Impression: This has resolved. His EKG did not suggest ischemia. Troponins were within normal limits. He has not had return of this chest pain. We will continue to monitor. (11) Back pain Impression: This slightly musculoskeletal and has resolved. We will continue with lidocaine patch and Tylenol as needed. Qualifiers: Back pain location: low back pain Chronicity: acute Back pain laterality: left - Current Meds Current Meds: Current Medications Generic Name Dose Route Start Last Admin Trade Name Freq PRN Reason Stop Dose Admin Acetaminophen 1,000 mg 04/16/21 15:44 05/13/21 16:45 Acetaminophen 500 Mg Tablet PO 1,000 mg Q6H PRN Administration Pain or Fever > 38C (100.4F) Apixaban 5 mg 04/27/21 21:00 05/16/21 09:22 Apixaban 5 Mg Tablet PO 5 mg BID PHAN Administration Atorvastatin Calcium 40 mg 04/19/21 21:00 05/15/21 19:25 Atorvastatin 40 Mg Tablet PO 40 mg QPM PHAN Administration Carvedilol 3.125 mg 04/19/21 12:00 05/16/21 09:24 Carvedilol 3.125 Mg Tablet PO 3.125 mg BID PHAN Administration Docusate Sodium 250 - 500 mg 04/16/21 09:00 05/16/21 09:24 Docusate Sodium 250 Mg Capsule PO Not Given DAILY [facility] Finasteride 5 mg 04/17/21 21:00 05/16/21 09:22 Finasteride 5 Mg Tablet PO 5 mg BID PHAN Administration Hydromorphone HCl 0.5 mg 04/25/21 15:10 05/13/21 16:44 Hydromorphone 0.5 Mg/0.5 Ml Syringe IVP 0.5 mg Q2H PRN Administration PAIN Ibuprofen 400 mg 05/08/21 10:25 05/15/21 19:22 Ibuprofen 400 Mg Tablet PO 400 mg Q6HR PRN Administration PAIN Levetiracetam 1,000 mg 05/05/21 22:00 05/16/21 09:23 Levetiracetam 250 Mg Tablet PO 1,000 mg BID PHAN Administration Lisinopril 10 mg 05/16/21 09:00 05/16/21 09:23 Lisinopril 20 Mg Tablet PO 10 mg DAILY PHAN Administration Magnesium Oxide 400 mg 05/14/21 12:00 05/16/21 09:22 Magnesium Oxide 400 Mg Tablet PO 400 mg DAILYWM PHAN Administration Multivitamins/Minerals 1 tab 04/18/21 12:00 05/16/21 09:22 Multivitamin W/Minerals Tablet PO 1 tab DAILYWM PHAN Administration Ondansetron HCl 4 mg 04/13/21 17:14 05/14/21 09:43 Ondansetron 4 Mg/2 Ml Vial IVP 4 mg Q6HR PRN Administration Nausea / Vomiting Oxcarbazepine 600 mg 05/09/21 21:00 05/16/21 09:24 Oxcarbazepine 150 Mg Tablet PO 600 mg BID PHAN Administration Polyethylene Glycol 17 gm 04/16/21 09:00 05/16/21 09:24 Polyethylene Glycol 3350 17 Gm Packet PO Not Given DAILY PHAN Potassium Chloride 10 meq 05/16/21 12:00 05/16/21 12:15 Potassium Chloride 10 Meq Capsule PO 10 meq DAILYWM PHAN Administration Senna 8.6 - 17.2 mg 04/16/21 09:00 05/16/21 09:25 Senna 8.6 Mg Tablet PO Not Given DAILY PHAN Sodium Chloride 10 ml 04/13/21 17:14 05/14/21 09:44 Sodium Chloride Flush 0.9% 10 Ml Syringe IVP 10 ml PRN PRN Administration NEEDED PER PROVIDER ORDERS Sodium Chloride 10 ml 04/14/21 01:00 05/16/21 10:17 Sodium Chloride Flush 0.9% 10 Ml Syringe IVP 10 ml 0100,0900,1700 PHAN Administration Tamsulosin HCl 0.4 mg 04/14/21 09:00 05/16/21 09:22 Tamsulosin 0.4 Mg Capsule PO 0.4 mg DAILY PHAN Administration - Lab Result Fish Bone Diagrams: 05/12/21 08:31 05/12/21 08:31 - Additional Planning My Orders: My Active Orders 05/16/21 09:00 lisinopriL [Zestril] 10 mg PO DAILY 05/16/21 12:00 Potassium Chloride [Micro-K] 10 meq PO DAILYWM 05/16/21 Dinner Soft (Low Fiber) Diet [DIET] Subjective - Subjective Patient Reports: Other (Wants a cheeseburger) Nursing Reports: Other (Spit out his liquid Potassium due to its bad taste) Objective Vital Signs: Vital Signs - 24 hr 05/15/21 05/15/21 05/16/21 16:00 19:18 00:17 Temperature 36.7 C 36.4 C L Heart Rate [ 73 79 58 L Brachial] Respiratory 16 14 Rate Blood Pressure 92/40 L [Left Brachial artery] Blood Pressure 115/54 L [Right Brachial artery] Blood Pressure 121/85 H [Right Radial artery] O2 Saturation 98 97 05/16/21 05/16/21 05/16/21 00:19 02:00 06:57 Temperature 36.3 C L Heart Rate [ 64 Brachial] Respiratory 14 Rate Blood Pressure 110/56 L [Left Brachial artery] Blood Pressure 80/40 L 106/53 L [Right Brachial artery] Blood Pressure [Right Radial artery] O2 Saturation 98 05/16/21 05/16/21 05/16/21 07:40 09:16 10:00 Temperature 36.3 C L Heart Rate [ 64 67 67 Brachial] Respiratory 14 17 17 Rate Blood Pressure [Left Brachial artery] Blood Pressure 106/53 L [Right Brachial artery] Blood Pressure 134/64 H 134/64 H [Right Radial artery] O2 Saturation 98 97 Oxygen O2 Source Room air I&O (Last 24 Hrs): Intake and Output Totals x24h 05/14/21 05/15/21 05/16/21 23:59 23:59 23:59 Intake Total 490 510 260 Output Total 800 520 225 Balance -310 -10 35 General: Alert HEENT: Mucous membr. moist/pink, Other (nearly edentulous) Neuro: Other (L arm weak, [place]) Cardiovascular: Regular rate Respiratory: No respiratory distress Abdomen: No tenderness Extremities: No edema - Results Results: Laboratory Results WBC 5.1 x10^3/uL (4.8-10.8) 05/12/21 08:31 RBC 3.77 10^6/uL (4.70-6.10) L 05/12/21 08:31 Hgb 10.9 g/dL (14.0-18.0) L 05/12/21 08:31 Hct 33.3 % (42.0-52.0) L 05/12/21 08:31 MCV 88.3 fL (80.0-94.0) 05/12/21 08:31 MCH 28.9 pg (27.0-31.0) 05/12/21 08:31 MCHC 32.7 g/dL (32.0-36.0) 05/12/21 08:31 RDW 12.9 % (12.0-15.0) 05/12/21 08:31 Plt Count 306 10^3/uL (130-450) 05/12/21 08:31 MPV 8.8 fL (7.4-11.4) 05/12/21 08:31 Neut # (Auto) 3.2 10^3/uL (1.5-6.6) 05/12/21 08:31 Lymph # (Auto) 1.2 10^3/uL (1.5-3.5) L 05/12/21 08:31 [place] # (Auto) 0.4 10^3/uL (0.0-1.0) 05/12/21 08:31 Eos # (Auto) 0.3 10^3/uL (0.0-0.7) 05/12/21 08:31 Baso # (Auto) 0.1 10^3/uL (0.0-0.1) 05/12/21 08:31 Absolute Nucleated RBC 0.00 x10^3/uL 05/12/21 08:31 Total Counted 100 04/22/21 10:26 Band Neuts % (Manual) 1 % (0-10) 04/22/21 10:26 Abnorm Lymph % (Manual) 0 % 04/22/21 10:26 Nucleated RBC % 0.0 /100WBC 05/12/21 08:31 Neutrophils # (Manual) 37.9 10^3/uL (1.5-6.6) H 04/22/21 10:26 Lymphocytes # (Manual) 0.0 10^3/uL (1.5-3.5) L 04/22/21 10:26 Monocytes # (Manual) 0.8 10^3/uL (0.0-1.0) 04/22/21 10:26 Eosinophils # (Manual) 0.0 10^3/uL (0-0.7) 04/22/21 10:26 Basophils # (Manual) 0.0 10^3/uL (0-0.1) 04/22/21 10:26 Differential Comment MANUAL DIFFERENTIAL 04/22/21 10:26 WBC Morphology NORMAL APPEARANCE (NORMAL) 04/22/21 04:40 Platelet Estimate NORMAL (130-450,000) (NORMAL) 04/22/21 10:26 Platelet Morphology NORMAL APPEARANCE (NORMAL) 04/22/21 10:26 RBC Morph Micro Appear NORMAL APPEARANCE (NORMAL) 04/22/21 10:26 Sodium 138 mmol/L (135-145) 05/12/21 08:31 Potassium 3.8 mmol/L (3.5-5.0) 05/12/21 08:31 Chloride 103 mmol/L (101-111) 05/12/21 08:31 Carbon Dioxide 26 mmol/L (21-32) 05/12/21 08:31 Anion Gap 9.0 (6-13) 05/12/21 08:31 BUN 15 mg/dL (6-20) 05/12/21 08:31 Creatinine 0.9 mg/dL (0.6-1.2) 05/12/21 08:31 Estimated GFR (MDRD) 81 (>89) L 05/12/21 08:31 Glucose 109 mg/dL (70-100) H 05/12/21 08:31 POC Whole Bld Glucose 128 mg/dL (70 - 100) H 04/28/21 10:17 Calcium 8.8 mg/dL (8.5-10.3) 05/12/21 08:31 Magnesium 1.9 mg/dL (1.7-2.8) 05/03/21 04:27 Total Bilirubin 0.8 mg/dL (0.2-1.0) 04/13/21 13:10 AST 14 IU/L (10-42) 04/13/21 13:10 ALT 12 IU/L (10-60) 04/13/21 13:10 Alkaline Phosphatase 92 IU/L (42-121) 04/13/21 13:10 Troponin I High Sens 6.0 ng/L (2.3-19.7) 05/12/21 11:44 Total Protein 6.4 g/dL (6.7-8.2) L 04/13/21 13:10 Albumin 3.8 g/dL (3.2-5.5) 04/13/21 13:10 Globulin 2.6 g/dL (2.1-4.2) 04/13/21 13:10 Albumin/Globulin Ratio 1.5 (1.0-2.2) 04/13/21 13:10 Urine Color DARK YELLOW 04/22/21 12:01 Urine Clarity HAZY (CLEAR) 04/22/21 12:01 Urine pH 5.0 PH (5.0-7.5) 04/22/21 12:01 Ur Specific [place] >=1.030 (1.002-1.030) H 04/22/21 12:01 Urine Protein 30 mg/dL (NEGATIVE) H 04/22/21 12:01 Urine Glucose (UA) NEGATIVE mg/dL (NEGATIVE) 04/22/21 12:01 Urine Ketones TRACE mg/dL (NEGATIVE) 04/22/21 12:01 Urine Occult Blood LARGE (NEGATIVE) H 04/22/21 12:01 Urine Nitrite POSITIVE (NEGATIVE) H 04/22/21 12:01 Urine Bilirubin SMALL (NEGATIVE) H 04/22/21 12:01 Urine Urobilinogen 1 (NORMAL) E.U./dL (NORMAL) 04/22/21 12:01 Ur Leukocyte Esterase SMALL (NEGATIVE) H 04/22/21 12:01 Urine RBC TNTC /HPF (0-5) H 04/22/21 12:01 Urine WBC >25 /HPF (0-3) H 04/22/21 12:01 Ur Squamous Epith Cells RARE Squamous (<= Few) 04/22/21 12:01 Amorphous Sediment Few /LPF 04/15/21 11:50 Urine Bacteria Moderate /HPF (None Seen) H 04/22/21 12:01 Urine Mucus Moderate Strands 04/22/21 12:01 Urine Culture Comments INDICATED 04/22/21 12:01 Nasal Adenovirus (PCR) NOT DETECTED 04/13/21 16:48 Nasal B. parapertussis DNA (PCR) NOT DETECTED 04/13/21 16:48 Nasal Coronavir 229E PCR NOT DETECTED 04/13/21 16:48 Nasal Coronavir HKU1 PCR NOT DETECTED 04/13/21 16:48 Nasal Coronavir NL63 PCR NOT DETECTED 04/13/21 16:48 Nasal Coronavir OC43 PCR NOT DETECTED 04/13/21 16:48 Nasal Enterovir/Rhinovir PCR NOT DETECTED 04/13/21 16:48 Nasal Influenza B PCR NOT DETECTED 04/13/21 16:48 Nasal Influenza A PCR NOT DETECTED 04/13/21 16:48 Nasal Parainfluen 1 PCR NOT DETECTED 04/13/21 16:48 Nasal Parainfluen 2 PCR NOT DETECTED 04/13/21 16:48 Nasal Parainfluen 3 PCR NOT DETECTED 04/13/21 16:48 Nasal Parainfluen 4 PCR NOT DETECTED 04/13/21 16:48 Nasal RSV (PCR) NOT DETECTED 04/13/21 16:48 Nasal B.pertussis DNA PCR NOT DETECTED 04/13/21 16:48 Nasal C.pneumoniae (PCR) NOT DETECTED 04/13/21 16:48 Mian Human Metapneumo PCR NOT DETECTED 04/13/21 16:48 Nasal M.pneumoniae (PCR) NOT DETECTED 04/13/21 16:48 Nasal SARS-CoV-2 (PCR) NOT DETECTED 04/13/21 16:48 Levetiracetam 28.3 mcg/mL 04/25/21 12:24 Ethyl Alcohol < 5.0 mg/dL 04/13/21 13:10
[2021-05-16] MEDS: IBUPROFEN 400 MG TABLET PO PRN (20:41)
[2021-05-16] MEDS: ATORVASTATIN 40 MG TABLET PO SCH (20:42)
[2021-05-17] MEDS: SODIUM CHLORIDE FLUSH 0.9% 10 ML SYRINGE IVP SCH ×3 (00:08→16:52)
[2021-05-17] MEDS: OXcarbazepine 150 MG TABLET PO SCH ×2 (08:57→22:45)
[2021-05-17] MEDS: levETIRAcetam 250 MG TABLET PO SCH ×2 (08:58→22:45)
[2021-05-17] MEDS: polyethylene glycoL 3350 17 GM PACKET PO SCH (09:01)
[2021-05-17] MEDS: APIXABAN 5 MG TABLET PO SCH ×2 (09:08→22:45)
[2021-05-17] MEDS: MULTIVITAMIN W/MINERALS TABLET PO SCH (09:09)
[2021-05-17] MEDS: MAGNESIUM OXIDE 400 MG TABLET PO SCH (09:09)
[2021-05-17] MEDS: FINASTERIDE 5 MG TABLET PO SCH ×2 (09:10→22:45)
[2021-05-17] MEDS: POTASSIUM CHLORIDE 10 MEQ CAPSULE PO SCH (09:10)
[2021-05-17] MEDS: carvediloL 3.125 MG TABLET PO SCH ×2 (09:10→22:45)
[2021-05-17] MEDS: lisinopriL 20 MG TABLET PO SCH (09:11)
[2021-05-17] MEDS: SENNA 8.6 MG TABLET PO SCH (09:11)
[2021-05-17] MEDS: DOCUSATE SODIUM 250 MG CAPSULE PO SCH (09:13)
[2021-05-17] MEDS: TAMSULOSIN 0.4 MG CAPSULE PO SCH (09:15)
--- NOTE | 2021-05-17 11:56 | PROVIDER PROGRESS NOTE ---
Assessment/Plan - Problem List (1) Seizure as late effect of cerebrovascular accident (CVA) Assessment/Plan: This was the reason for admission (then he had several different complications). Stabilized but gets occais L arm shaking and has L sided neglect. We will continue the current dose of Trileptal and Keppra. At this point he is medically cleared for discharge. He was evaluated by physical therapy and SNF is recommended. (2) Left-sided muscle weakness Impression: He still appears to have minor left-sided deficits with fine motor skills. 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 MRI showed no evidence of acute stroke. At this point he is medically cleared for discharge. He was evaluated by physical therapy and SNF is recommended. (3) Afib Impression: He remains rate controlled on carvedilol. We will continue Eliquis. (4) Cardiomyopathy Impression: He has a history of heart failure with reduced ejection fraction but now his EF is preserved. We will continue carvedilol and lisinopril. Will obtain a set of electrolytes, Mg and CBC with morning labs, as it has not been checked for 5 days (5) BPH (benign prostatic hyperplasia) Impression: Continue with Flomax, finasteride. Rodriguez catheter will remain in place for the time being. (6) UTI (urinary tract infection) Impression: Resolved. He completed treatment with ciprofloxacin. (7) Delirium Impression: Resolved. He still at risk for owning but he has been doing well each night. Continue to limit sedatives. (8) Neck pain Impression: Resolved. This was likely musculoskeletal, it resolved with Tylenol. (9) Chest pain Impression: Resolved. His EKG did not suggest ischemia. Troponins were within normal limits. He has not had return of this chest pain. We will continue to monitor. (10) Back pain Impression: This was musculoskeletal and has resolved. We will continue with lidocaine patch and Tylenol as needed. Qualifiers: Back pain location: low back pain Chronicity: acute Back pain laterality: left (11) Constipation Assessment/Plan: Resolved; pt had a large BM after yesterday Continue bowel protocol. - Current Meds Current Meds: Current Medications Generic Name Dose Route Start Last Admin Trade Name Freq PRN Reason Stop Dose Admin Acetaminophen 1,000 mg 04/16/21 15:44 05/13/21 16:45 Acetaminophen 500 Mg Tablet PO 1,000 mg Q6H PRN Administration Pain or Fever > 38C (100.4F) Apixaban 5 mg 04/27/21 21:00 05/17/21 09:08 Apixaban 5 Mg Tablet PO 5 mg BID PHAN Administration Atorvastatin Calcium 40 mg 04/19/21 21:00 05/16/21 20:42 Atorvastatin 40 Mg Tablet PO 40 mg QPM PHAN Administration Carvedilol 3.125 mg 04/19/21 12:00 05/17/21 09:10 Carvedilol 3.125 Mg Tablet PO 3.125 mg BID PHAN Administration Docusate Sodium 250 - 500 mg 04/16/21 09:00 05/17/21 09:13 Docusate Sodium 250 Mg Capsule PO 250 mg DAILY PHAN Administration Finasteride 5 mg 04/17/21 21:00 05/17/21 09:10 Finasteride 5 Mg Tablet PO 5 mg BID PHAN Administration Hydromorphone HCl 0.5 mg 04/25/21 15:10 05/13/21 16:44 Hydromorphone 0.5 Mg/0.5 Ml Syringe IVP 0.5 mg Q2H PRN Administration PAIN Ibuprofen 400 mg 05/08/21 10:25 05/16/21 20:41 Ibuprofen 400 Mg Tablet PO 400 mg Q6HR PRN Administration PAIN Levetiracetam 1,000 mg 05/05/21 22:00 05/17/21 08:58 Levetiracetam 250 Mg Tablet PO 1,000 mg BID PHAN Administration Lisinopril 10 mg 05/16/21 09:00 05/17/21 09:11 Lisinopril 20 Mg Tablet PO 10 mg DAILY PHAN Administration Magnesium Oxide 400 mg 05/14/21 12:00 05/17/21 09:09 Magnesium Oxide 400 Mg Tablet PO 400 mg DAILYWM PHAN Administration Multivitamins/Minerals 1 tab 04/18/21 12:00 05/17/21 09:09 Multivitamin W/Minerals Tablet PO 1 tab DAILYWM PHAN Administration Ondansetron HCl 4 mg 04/13/21 17:14 05/14/21 09:43 Ondansetron 4 Mg/2 Ml Vial IVP 4 mg Q6HR PRN Administration Nausea / Vomiting Oxcarbazepine 600 mg 05/09/21 21:00 05/17/21 08:57 Oxcarbazepine 150 Mg Tablet PO 600 mg BID PHAN Administration Polyethylene Glycol 17 gm 04/16/21 09:00 05/17/21 09:01 Polyethylene Glycol 3350 17 Gm Packet PO 17 gm DAILY PHAN Administration Potassium Chloride 10 meq 05/16/21 12:00 05/17/21 09:10 Potassium Chloride 10 Meq Capsule PO 10 meq DAILYWM PHAN Administration Senna 8.6 - 17.2 mg 04/16/21 09:00 05/17/21 09:11 Senna 8.6 Mg Tablet PO 8.6 mg DAILY PHAN Administration Sodium Chloride 10 ml 04/13/21 17:14 05/14/21 09:44 Sodium Chloride Flush 0.9% 10 Ml Syringe IVP 10 ml PRN PRN Administration NEEDED PER PROVIDER ORDERS Sodium Chloride 10 ml 04/14/21 01:00 05/17/21 00:08 Sodium Chloride Flush 0.9% 10 Ml Syringe IVP 10 ml 0100,0900,1700 PHAN Administration Tamsulosin HCl 0.4 mg 04/14/21 09:00 05/17/21 09:15 Tamsulosin 0.4 Mg Capsule PO 0.4 mg DAILY PHAN Administration - Lab Result Fish Bone Diagrams: 05/12/21 08:31 05/12/21 08:31 - Additional Planning My Orders: My Active Orders 05/16/21 12:00 Potassium Chloride [Micro-K] 10 meq PO DAILYWM 05/16/21 Dinner Soft (Low Fiber) Diet [DIET] 05/18/21 05:00 BMP - BASIC METABOLIC PANEL [CHEM] DAILYLAB CBC - COMP BLD CT W/AUTO DIFF [HEME] DAILYLAB MAGNESIUM [CHEM] DAILYLAB Subjective - Subjective Patient Reports: Resting Comfortably, No Complaints Objective Vital Signs: Vital Signs - 24 hr 05/16/21 05/16/21 05/17/21 14:00 15:51 00:00 Temperature 36.4 C L 36.6 C 36.6 C Heart Rate [ 68 84 88 Brachial] Respiratory 16 18 20 Rate Blood Pressure 115/53 L 106/60 129/65 [Right Radial artery] O2 Saturation 98 97 98 05/17/21 07:58 Temperature 36.4 C L Heart Rate [ 75 Brachial] Respiratory 21 Rate Blood Pressure 130/69 [Right Radial artery] O2 Saturation 97 Oxygen O2 Source Room air I&O (Last 24 Hrs): Intake and Output Totals x24h 05/15/21 05/16/21 05/17/21 23:59 23:59 23:59 Intake Total 510 720 520 Output Total 520 375 450 Balance -10 345 70 General: Alert, Other (Cachectic) HEENT: Mucous membr. moist/pink Neck: Supple Neuro: Other (L arm weakness) Cardiovascular: No murmurs Respiratory: No respiratory distress Abdomen: Soft Extremities: No edema - Results Results: Laboratory Results WBC 5.1 x10^3/uL (4.8-10.8) 05/12/21 08:31 RBC 3.77 10^6/uL (4.70-6.10) L 05/12/21 08:31 Hgb 10.9 g/dL (14.0-18.0) L 05/12/21 08:31 Hct 33.3 % (42.0-52.0) L 05/12/21 08:31 MCV 88.3 fL (80.0-94.0) 05/12/21 08:31 MCH 28.9 pg (27.0-31.0) 05/12/21 08:31 MCHC 32.7 g/dL (32.0-36.0) 05/12/21 08:31 RDW 12.9 % (12.0-15.0) 05/12/21 08:31 Plt Count 306 10^3/uL (130-450) 05/12/21 08:31 MPV 8.8 fL (7.4-11.4) 05/12/21 08:31 Neut # (Auto) 3.2 10^3/uL (1.5-6.6) 05/12/21 08:31 Lymph # (Auto) 1.2 10^3/uL (1.5-3.5) L 05/12/21 08:31 Saline # (Auto) 0.4 10^3/uL (0.0-1.0) 05/12/21 08:31 Eos # (Auto) 0.3 10^3/uL (0.0-0.7) 05/12/21 08:31 Baso # (Auto) 0.1 10^3/uL (0.0-0.1) 05/12/21 08:31 Absolute Nucleated RBC 0.00 x10^3/uL 05/12/21 08:31 Total Counted 100 04/22/21 10:26 Band Neuts % (Manual) 1 % (0-10) 04/22/21 10:26 Abnorm Lymph % (Manual) 0 % 04/22/21 10:26 Nucleated RBC % 0.0 /100WBC 05/12/21 08:31 Neutrophils # (Manual) 37.9 10^3/uL (1.5-6.6) H 04/22/21 10:26 Lymphocytes # (Manual) 0.0 10^3/uL (1.5-3.5) L 04/22/21 10:26 Monocytes # (Manual) 0.8 10^3/uL (0.0-1.0) 04/22/21 10:26 Eosinophils # (Manual) 0.0 10^3/uL (0-0.7) 04/22/21 10:26 Basophils # (Manual) 0.0 10^3/uL (0-0.1) 04/22/21 10:26 Differential Comment MANUAL DIFFERENTIAL 04/22/21 10:26 WBC Morphology NORMAL APPEARANCE (NORMAL) 04/22/21 04:40 Platelet Estimate NORMAL (130-450,000) (NORMAL) 04/22/21 10:26 Platelet Morphology NORMAL APPEARANCE (NORMAL) 04/22/21 10:26 RBC Morph Micro Appear NORMAL APPEARANCE (NORMAL) 04/22/21 10:26 Sodium 138 mmol/L (135-145) 05/12/21 08:31 Potassium 3.8 mmol/L (3.5-5.0) 05/12/21 08:31 Chloride 103 mmol/L (101-111) 05/12/21 08:31 Carbon Dioxide 26 mmol/L (21-32) 05/12/21 08:31 Anion Gap 9.0 (6-13) 05/12/21 08:31 BUN 15 mg/dL (6-20) 05/12/21 08:31 Creatinine 0.9 mg/dL (0.6-1.2) 05/12/21 08:31 Estimated GFR (MDRD) 81 (>89) L 05/12/21 08:31 Glucose 109 mg/dL (70-100) H 05/12/21 08:31 POC Whole Bld Glucose 128 mg/dL (70 - 100) H 04/28/21 10:17 Calcium 8.8 mg/dL (8.5-10.3) 05/12/21 08:31 Magnesium 1.9 mg/dL (1.7-2.8) 05/03/21 04:27 Total Bilirubin 0.8 mg/dL (0.2-1.0) 04/13/21 13:10 AST 14 IU/L (10-42) 04/13/21 13:10 ALT 12 IU/L (10-60) 04/13/21 13:10 Alkaline Phosphatase 92 IU/L (42-121) 04/13/21 13:10 Troponin I High Sens 6.0 ng/L (2.3-19.7) 05/12/21 11:44 Total Protein 6.4 g/dL (6.7-8.2) L 04/13/21 13:10 Albumin 3.8 g/dL (3.2-5.5) 04/13/21 13:10 Globulin 2.6 g/dL (2.1-4.2) 04/13/21 13:10 Albumin/Globulin Ratio 1.5 (1.0-2.2) 04/13/21 13:10 Urine Color DARK YELLOW 04/22/21 12:01 Urine Clarity HAZY (CLEAR) 04/22/21 12:01 Urine pH 5.0 PH (5.0-7.5) 04/22/21 12:01 Ur Specific [place] >=1.030 (1.002-1.030) H 04/22/21 12:01 Urine Protein 30 mg/dL (NEGATIVE) H 04/22/21 12:01 Urine Glucose (UA) NEGATIVE mg/dL (NEGATIVE) 04/22/21 12:01 Urine Ketones TRACE mg/dL (NEGATIVE) 04/22/21 12:01 Urine Occult Blood LARGE (NEGATIVE) H 04/22/21 12:01 Urine Nitrite POSITIVE (NEGATIVE) H 04/22/21 12:01 Urine Bilirubin SMALL (NEGATIVE) H 04/22/21 12:01 Urine Urobilinogen 1 (NORMAL) E.U./dL (NORMAL) 04/22/21 12:01 Ur Leukocyte Esterase SMALL (NEGATIVE) H 04/22/21 12:01 Urine RBC TNTC /HPF (0-5) H 04/22/21 12:01 Urine WBC >25 /HPF (0-3) H 04/22/21 12:01 Ur Squamous Epith Cells RARE Squamous (<= Few) 04/22/21 12:01 Amorphous Sediment Few /LPF 04/15/21 11:50 Urine Bacteria Moderate /HPF (None Seen) H 04/22/21 12:01 Urine Mucus Moderate Strands 04/22/21 12:01 Urine Culture Comments INDICATED 04/22/21 12:01 Nasal Adenovirus (PCR) NOT DETECTED 04/13/21 16:48 Nasal B. parapertussis DNA (PCR) NOT DETECTED 04/13/21 16:48 Nasal Coronavir 229E PCR NOT DETECTED 04/13/21 16:48 Nasal Coronavir HKU1 PCR NOT DETECTED 04/13/21 16:48 Nasal Coronavir NL63 PCR NOT DETECTED 04/13/21 16:48 Nasal Coronavir OC43 PCR NOT DETECTED 04/13/21 16:48 Nasal Enterovir/Rhinovir PCR NOT DETECTED 04/13/21 16:48 Nasal Influenza B PCR NOT DETECTED 04/13/21 16:48 Nasal Influenza A PCR NOT DETECTED 04/13/21 16:48 Nasal Parainfluen 1 PCR NOT DETECTED 04/13/21 16:48 Nasal Parainfluen 2 PCR NOT DETECTED 04/13/21 16:48 Nasal Parainfluen 3 PCR NOT DETECTED 04/13/21 16:48 Nasal Parainfluen 4 PCR NOT DETECTED 04/13/21 16:48 Nasal RSV (PCR) NOT DETECTED 04/13/21 16:48 Nasal B.pertussis DNA PCR NOT DETECTED 04/13/21 16:48 Nasal C.pneumoniae (PCR) NOT DETECTED 04/13/21 16:48 Mian Human Metapneumo PCR NOT DETECTED 04/13/21 16:48 Nasal M.pneumoniae (PCR) NOT DETECTED 04/13/21 16:48 Nasal SARS-CoV-2 (PCR) NOT DETECTED 04/13/21 16:48 Levetiracetam 28.3 mcg/mL 04/25/21 12:24 Ethyl Alcohol < 5.0 mg/dL 04/13/21 13:10
[2021-05-17] MEDS: IBUPROFEN 400 MG TABLET PO PRN (21:00)
[2021-05-17] MEDS: ATORVASTATIN 40 MG TABLET PO SCH (22:45)
[2021-05-18] MEDS: SODIUM CHLORIDE FLUSH 0.9% 10 ML SYRINGE IVP SCH ×3 (03:33→16:17)
[2021-05-18 07:07] LABS: BASOPHILS # (AUTO) 0.1 10^3/uL (0.0-0.1); BASOPHILS % (AUTO) 1.6 %; EOSINOPHILS # (AUTO) 0.1 10^3/uL (0.0-0.7); EOSINOPHILS % (AUTO) 1.6 %; HGB - HEMOGLOBIN 9.6 g/dL (14.0-18.0); LYMPHOCYTES # (AUTO) 1.3 10^3/uL (1.5-3.5); LYMPHOCYTES % (AUTO) 20.6 %; MEAN CORPUSCULAR HEMOGLOBIN 28.9 pg (27.0-31.0); MEAN CORPUSCULAR VOLUME 90.4 fL (80.0-94.0); MEAN PLATELET VOLUME 9.3 fL (7.4-11.4); MONOCYTES # (AUTO) 0.6 10^3/uL (0.0-1.0); NEUTROPHILS % (AUTO) 65.9 %; PLT - PLATELET COUNT 243 10^3/uL (130-450); RED BLOOD COUNT 3.32 10^6/uL (4.70-6.10); RED CELL DISTRIBUTION WIDTH 13.2 % (12.0-15.0); WHITE BLOOD COUNT 6.1 x10^3/uL (4.8-10.8)
[2021-05-18 07:20] LABS: CALCIUM 8.9 mg/dL (8.5-10.3); MAGNESIUM 2.2 mg/dL (1.7-2.8); POTASSIUM 3.8 mmol/L (3.5-5.0)
[2021-05-18] MEDS: POTASSIUM CHLORIDE 10 MEQ CAPSULE PO SCH (08:51)
[2021-05-18] MEDS: MAGNESIUM OXIDE 400 MG TABLET PO SCH (08:51)
[2021-05-18] MEDS: MULTIVITAMIN W/MINERALS TABLET PO SCH (08:51)
[2021-05-18] MEDS: polyethylene glycoL 3350 17 GM PACKET PO SCH (08:51)
[2021-05-18] MEDS: levETIRAcetam 250 MG TABLET PO SCH ×2 (08:55→20:28)
[2021-05-18] MEDS: OXcarbazepine 150 MG TABLET PO SCH ×2 (08:56→20:28)
[2021-05-18] MEDS: carvediloL 3.125 MG TABLET PO SCH ×2 (08:59→20:28)
[2021-05-18] MEDS: APIXABAN 5 MG TABLET PO SCH ×2 (08:59→20:28)
[2021-05-18] MEDS: TAMSULOSIN 0.4 MG CAPSULE PO SCH (08:59)
[2021-05-18] MEDS: DOCUSATE SODIUM 250 MG CAPSULE PO SCH (09:00)
[2021-05-18] MEDS: SENNA 8.6 MG TABLET PO SCH (09:00)
[2021-05-18] MEDS: FINASTERIDE 5 MG TABLET PO SCH ×2 (09:00→20:28)
[2021-05-18] MEDS: lisinopriL 20 MG TABLET PO SCH (09:03)
--- NOTE | 2021-05-18 12:22 | PROVIDER PROGRESS NOTE ---
Assessment/Plan - Problem List (1) Seizure as late effect of cerebrovascular accident (CVA) Assessment/Plan: This was the reason for admission (then he had several different complications). Stabilized but gets occais L arm shaking and has L sided neglect. We will continue the current dose of Trileptal and Keppra. At this point he is medically cleared for discharge. He was evaluated by physical therapy and SNF is recommended. SW is working on getting him placement. (2) Left-sided muscle weakness Impression: He still appears to have minor left-sided deficits with fine motor skills. 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 MRI showed no evidence of acute stroke. At this point he is medically cleared for discharge. He was evaluated by physical therapy and SNF is recommended. (3) Afib Impression: He remains rate controlled on carvedilol. We will continue Eliquis. (4) Cardiomyopathy Impression: He has a history of heart failure with reduced ejection fraction but now his EF is preserved. We will continue carvedilol and lisinopril. Will obtain a set of electrolytes, Mg and CBC with morning labs, as it has not been checked for 5 days (5) BPH (benign prostatic hyperplasia) Impression: Continue with Flomax, finasteride. Rodriguez catheter will remain in place for the time being. (6) UTI (urinary tract infection) Impression: Resolved. He completed treatment with ciprofloxacin. (7) Delirium Impression: Resolved. He still at risk for sundowning but he has been doing well each night. Continue to limit sedatives. (8) Neck pain Impression: Resolved. This was likely musculoskeletal, it resolved with Tylenol. (9) Chest pain Impression: Resolved. His EKG did not suggest ischemia. Troponins were within normal limits. He has not had return of this chest pain. We will continue to monitor. (10) Back pain Impression: This was musculoskeletal and has resolved. We will continue with lidocaine patch and Tylenol as needed. Qualifiers: Back pain location: low back pain Chronicity: acute Back pain laterality: left (11) Constipation Assessment/Plan: Resolved; pt had a large BM Continue bowel protocol. - Current Meds Current Meds: Current Medications Generic Name Dose Route Start Last Admin Trade Name Freq PRN Reason Stop Dose Admin Acetaminophen 1,000 mg 04/16/21 15:44 05/13/21 16:45 Acetaminophen 500 Mg Tablet PO 1,000 mg Q6H PRN Administration Pain or Fever > 38C (100.4F) Apixaban 5 mg 04/27/21 21:00 05/18/21 08:59 Apixaban 5 Mg Tablet PO 5 mg BID PHAN Administration Atorvastatin Calcium 40 mg 04/19/21 21:00 05/17/21 22:45 Atorvastatin 40 Mg Tablet PO 40 mg QPM PHAN Administration Carvedilol 3.125 mg 04/19/21 12:00 05/18/21 08:59 Carvedilol 3.125 Mg Tablet PO 3.125 mg BID PHAN Administration Docusate Sodium 250 - 500 mg 04/16/21 09:00 05/18/21 09:00 Docusate Sodium 250 Mg Capsule PO 250 mg DAILY PHAN Administration Finasteride 5 mg 04/17/21 21:00 05/18/21 09:00 Finasteride 5 Mg Tablet PO 5 mg BID PHAN Administration Hydromorphone HCl 0.5 mg 04/25/21 15:10 05/13/21 16:44 Hydromorphone 0.5 Mg/0.5 Ml Syringe IVP 0.5 mg Q2H PRN Administration PAIN Ibuprofen 400 mg 05/08/21 10:25 05/17/21 21:00 Ibuprofen 400 Mg Tablet PO 400 mg Q6HR PRN Administration PAIN Levetiracetam 1,000 mg 05/05/21 22:00 05/18/21 08:55 Levetiracetam 250 Mg Tablet PO 1,000 mg BID PHAN Administration Lisinopril 10 mg 05/16/21 09:00 05/18/21 09:03 Lisinopril 20 Mg Tablet PO 10 mg DAILY PHAN Administration Magnesium Oxide 400 mg 05/14/21 12:00 05/18/21 08:51 Magnesium Oxide 400 Mg Tablet PO 400 mg DAILYWM PHAN Administration Multivitamins/Minerals 1 tab 04/18/21 12:00 05/18/21 08:51 Multivitamin W/Minerals Tablet PO 1 tab DAILYWM PHAN Administration Ondansetron HCl 4 mg 04/13/21 17:14 05/14/21 09:43 Ondansetron 4 Mg/2 Ml Vial IVP 4 mg Q6HR PRN Administration Nausea / Vomiting Oxcarbazepine 600 mg 05/09/21 21:00 05/18/21 08:56 Oxcarbazepine 150 Mg Tablet PO 600 mg BID PHAN Administration Polyethylene Glycol 17 gm 04/16/21 09:00 05/18/21 08:51 Polyethylene Glycol 3350 17 Gm Packet PO 17 gm DAILY PHAN Administration Potassium Chloride 10 meq 05/16/21 12:00 05/18/21 08:51 Potassium Chloride 10 Meq Capsule PO 10 meq DAILYWM PHAN Administration Senna 8.6 - 17.2 mg 04/16/21 09:00 05/18/21 09:00 Senna 8.6 Mg Tablet PO 8.6 mg DAILY PHAN Administration Sodium Chloride 10 ml 04/13/21 17:14 05/14/21 09:44 Sodium Chloride Flush 0.9% 10 Ml Syringe IVP 10 ml PRN PRN Administration NEEDED PER PROVIDER ORDERS Sodium Chloride 10 ml 04/14/21 01:00 05/18/21 08:52 Sodium Chloride Flush 0.9% 10 Ml Syringe IVP 10 ml 0100,0900,1700 PHAN Administration Tamsulosin HCl 0.4 mg 04/14/21 09:00 05/18/21 08:59 Tamsulosin 0.4 Mg Capsule PO 0.4 mg DAILY PHAN Administration - Lab Result Fish Bone Diagrams: 05/18/21 06:57 05/18/21 06:57 Subjective - Subjective Patient Reports: No Complaints Nursing Reports: Other (He is more cooperative, and pleasant the past 2 days, ever since getting a cheeseburger and fries for meals. The SW today (Teresita) knows him and his and says he eats a hamburger and fries from [employer] often.) Objective Vital Signs: Vital Signs - 24 hr 05/17/21 05/17/21 05/18/21 16:00 23:23 07:16 Temperature 36.3 C L 36.2 C L 36.6 C Heart Rate [ 77 68 67 Brachial] Respiratory 20 20 20 Rate Blood Pressure 130/66 [Right Ankle] Blood Pressure 130/48 L 97/40 L [Right Radial artery] O2 Saturation 97 100 99 Oxygen O2 Source Room air I&O (Last 24 Hrs): Intake and Output Totals x24h 05/16/21 05/17/21 05/18/21 23:59 23:59 23:59 Intake Total 720 1822 562 Output Total 375 750 275 Balance 345 1072 287 General: Alert HEENT: Mucous membr. moist/pink Neck: Supple Neuro: Other (L arm weak, has fine head tremor when sitting upright) Cardiovascular: Regular rate Respiratory: No respiratory distress Abdomen: Soft Genitourinary: Other (Has Rodriguez) Extremities: No edema - Results Results: Laboratory Results WBC 6.1 x10^3/uL (4.8-10.8) 05/18/21 06:57 RBC 3.32 10^6/uL (4.70-6.10) L 05/18/21 06:57 Hgb 9.6 g/dL (14.0-18.0) L 05/18/21 06:57 Hct 30.0 % (42.0-52.0) L 05/18/21 06:57 MCV 90.4 fL (80.0-94.0) 05/18/21 06:57 MCH 28.9 pg (27.0-31.0) 05/18/21 06:57 MCHC 32.0 g/dL (32.0-36.0) 05/18/21 06:57 RDW 13.2 % (12.0-15.0) 05/18/21 06:57 Plt Count 243 10^3/uL (130-450) 05/18/21 06:57 MPV 9.3 fL (7.4-11.4) 05/18/21 06:57 Neut # (Auto) 4.0 10^3/uL (1.5-6.6) 05/18/21 06:57 Lymph # (Auto) 1.3 10^3/uL (1.5-3.5) L 05/18/21 06:57 [place] # (Auto) 0.6 10^3/uL (0.0-1.0) 05/18/21 06:57 Eos # (Auto) 0.1 10^3/uL (0.0-0.7) 05/18/21 06:57 Baso # (Auto) 0.1 10^3/uL (0.0-0.1) 05/18/21 06:57 Absolute Nucleated RBC 0.00 x10^3/uL 05/18/21 06:57 Total Counted 100 04/22/21 10:26 Band Neuts % (Manual) 1 % (0-10) 04/22/21 10:26 Abnorm Lymph % (Manual) 0 % 04/22/21 10:26 Nucleated RBC % 0.0 /100WBC 05/18/21 06:57 Neutrophils # (Manual) 37.9 10^3/uL (1.5-6.6) H 04/22/21 10:26 Lymphocytes # (Manual) 0.0 10^3/uL (1.5-3.5) L 04/22/21 10:26 Monocytes # (Manual) 0.8 10^3/uL (0.0-1.0) 04/22/21 10:26 Eosinophils # (Manual) 0.0 10^3/uL (0-0.7) 04/22/21 10:26 Basophils # (Manual) 0.0 10^3/uL (0-0.1) 04/22/21 10:26 Differential Comment MANUAL DIFFERENTIAL 04/22/21 10:26 WBC Morphology NORMAL APPEARANCE (NORMAL) 04/22/21 04:40 Platelet Estimate NORMAL (130-450,000) (NORMAL) 04/22/21 10:26 Platelet Morphology NORMAL APPEARANCE (NORMAL) 04/22/21 10:26 RBC Morph Micro Appear NORMAL APPEARANCE (NORMAL) 04/22/21 10:26 Sodium 143 mmol/L (135-145) 05/18/21 06:57 Potassium 3.8 mmol/L (3.5-5.0) 05/18/21 06:57 Chloride 107 mmol/L (101-111) 05/18/21 06:57 Carbon Dioxide 28 mmol/L (21-32) 05/18/21 06:57 Anion Gap 8.0 (6-13) 05/18/21 06:57 BUN 30 mg/dL (6-20) H 05/18/21 06:57 Creatinine 1.0 mg/dL (0.6-1.2) 05/18/21 06:57 Estimated GFR (MDRD) 72 (>89) L 05/18/21 06:57 Glucose 114 mg/dL (70-100) H 05/18/21 06:57 POC Whole Bld Glucose 128 mg/dL (70 - 100) H 04/28/21 10:17 Calcium 8.9 mg/dL (8.5-10.3) 05/18/21 06:57 Magnesium 2.2 mg/dL (1.7-2.8) 05/18/21 06:57 Total Bilirubin 0.8 mg/dL (0.2-1.0) 04/13/21 13:10 AST 14 IU/L (10-42) 04/13/21 13:10 ALT 12 IU/L (10-60) 04/13/21 13:10 Alkaline Phosphatase 92 IU/L (42-121) 04/13/21 13:10 Troponin I High Sens 6.0 ng/L (2.3-19.7) 05/12/21 11:44 Total Protein 6.4 g/dL (6.7-8.2) L 04/13/21 13:10 Albumin 3.8 g/dL (3.2-5.5) 04/13/21 13:10 Globulin 2.6 g/dL (2.1-4.2) 04/13/21 13:10 Albumin/Globulin Ratio 1.5 (1.0-2.2) 04/13/21 13:10 Urine Color DARK YELLOW 04/22/21 12:01 Urine Clarity HAZY (CLEAR) 04/22/21 12:01 Urine pH 5.0 PH (5.0-7.5) 04/22/21 12:01 Ur Specific [place] >=1.030 (1.002-1.030) H 04/22/21 12:01 Urine Protein 30 mg/dL (NEGATIVE) H 04/22/21 12:01 Urine Glucose (UA) NEGATIVE mg/dL (NEGATIVE) 04/22/21 12:01 Urine Ketones TRACE mg/dL (NEGATIVE) 04/22/21 12:01 Urine Occult Blood LARGE (NEGATIVE) H 04/22/21 12:01 Urine Nitrite POSITIVE (NEGATIVE) H 04/22/21 12:01 Urine Bilirubin SMALL (NEGATIVE) H 04/22/21 12:01 Urine Urobilinogen 1 (NORMAL) E.U./dL (NORMAL) 04/22/21 12:01 Ur Leukocyte Esterase SMALL (NEGATIVE) H 04/22/21 12:01 Urine RBC TNTC /HPF (0-5) H 04/22/21 12:01 Urine WBC >25 /HPF (0-3) H 04/22/21 12:01 Ur Squamous Epith Cells RARE Squamous (<= Few) 04/22/21 12:01 Amorphous Sediment Few /LPF 04/15/21 11:50 Urine Bacteria Moderate /HPF (None Seen) H 04/22/21 12:01 Urine Mucus Moderate Strands 04/22/21 12:01 Urine Culture Comments INDICATED 04/22/21 12:01 Nasal Adenovirus (PCR) NOT DETECTED 04/13/21 16:48 Nasal B. parapertussis DNA (PCR) NOT DETECTED 04/13/21 16:48 Nasal Coronavir 229E PCR NOT DETECTED 04/13/21 16:48 Nasal Coronavir HKU1 PCR NOT DETECTED 04/13/21 16:48 Nasal Coronavir NL63 PCR NOT DETECTED 04/13/21 16:48 Nasal Coronavir OC43 PCR NOT DETECTED 04/13/21 16:48 Nasal Enterovir/Rhinovir PCR NOT DETECTED 04/13/21 16:48 Nasal Influenza B PCR NOT DETECTED 04/13/21 16:48 Nasal Influenza A PCR NOT DETECTED 04/13/21 16:48 Nasal Parainfluen 1 PCR NOT DETECTED 04/13/21 16:48 Nasal Parainfluen 2 PCR NOT DETECTED 04/13/21 16:48 Nasal Parainfluen 3 PCR NOT DETECTED 04/13/21 16:48 Nasal Parainfluen 4 PCR NOT DETECTED 04/13/21 16:48 Nasal RSV (PCR) NOT DETECTED 04/13/21 16:48 Nasal B.pertussis DNA PCR NOT DETECTED 04/13/21 16:48 Nasal C.pneumoniae (PCR) NOT DETECTED 04/13/21 16:48 Mian Human Metapneumo PCR NOT DETECTED 04/13/21 16:48 Nasal M.pneumoniae (PCR) NOT DETECTED 04/13/21 16:48 Nasal SARS-CoV-2 (PCR) NOT DETECTED 04/13/21 16:48 Levetiracetam 28.3 mcg/mL 04/25/21 12:24 Ethyl Alcohol < 5.0 mg/dL 04/13/21 13:10
[2021-05-18] MEDS: IBUPROFEN 400 MG TABLET PO PRN (17:33)
[2021-05-18] MEDS: ACETAMINOPHEN 500 MG TABLET PO PRN (18:57)
[2021-05-18] MEDS: oxyCODONE 5 MG TABLET PO PRN (20:22)
[2021-05-18] MEDS: CYCLOBENZAPRINE 10 MG TABLET PO PRN (20:23)
[2021-05-18] MEDS: ATORVASTATIN 40 MG TABLET PO SCH (20:28)
[2021-05-18] MEDS: HYDROmorphone 0.5 MG/0.5 ML SYRINGE IVP PRN (21:55)
[2021-05-18] MEDS: SODIUM CHLORIDE FLUSH 0.9% 10 ML SYRINGE IVP PRN (21:55)
[2021-05-19] MEDS: SODIUM CHLORIDE FLUSH 0.9% 10 ML SYRINGE IVP SCH ×3 (00:02→17:01)
[2021-05-19] MEDS: BENZOCAINE/MENTHOL LOZENGE MM PRN (01:47)
[2021-05-19] MEDS: ACETAMINOPHEN 500 MG TABLET PO PRN ×2 (07:58→16:47)
[2021-05-19] MEDS: MULTIVITAMIN W/MINERALS TABLET PO SCH (07:58)
[2021-05-19] MEDS: POTASSIUM CHLORIDE 10 MEQ CAPSULE PO SCH (07:58)
[2021-05-19] MEDS: MAGNESIUM OXIDE 400 MG TABLET PO SCH (07:58)
[2021-05-19] MEDS ORDERED: HYDROmorphone 0.5 MG/0.5 ML SYRINGE IVP PRN (08:13)
--- NOTE | 2021-05-19 08:21 | PROVIDER PROGRESS NOTE ---
Assessment/Plan - Problem List (1) Neck pain Assessment/Plan: He had neck pain earlier this admission, it was musculoskeletal. Last night, neck pain recurred and the Hospitalist tried to perform neck massage. Tylenol and Motrin did not help, Flexeril was tried too. Finally he got Dilaudid with ggod effect. Will continue with pain meds and Flexeril if needed. Will change the Dilaudid to po q6h prn severe pain, so that he has that available at a SNF. Will also put the Lidocaine patch, that he was getting on his low back, put on his neck. (2) Seizure as late effect of cerebrovascular accident (CVA) Assessment/Plan: This was the reason for admission (then he had several different complications). Stabilized but gets occais L arm shaking and has L sided neglect. We will continue the current dose of Trileptal and Keppra. At this point he is medically cleared for discharge. He was evaluated by physical therapy and SNF is recommended. SW is working on getting him placement. (3) Left-sided muscle weakness Impression: He still appears to have minor left-sided deficits with fine motor skills. 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 MRI showed no evidence of acute stroke. At this point he is medically cleared for discharge. He was evaluated by physical therapy and SNF is recommended. (4) Afib Impression: He remains rate controlled on carvedilol. We will continue Eliquis. (5) Cardiomyopathy Impression: He has a history of heart failure with reduced ejection fraction but during this admission an Echo showed his EF is preserved. Labs were done today (he has had none in 6 days) and showed stable electrolytes and only mild dehydration (pre-renal azotemia), but he is not getting a diuretic, and suspect it is from his choosy nature to foods and drinks. We will continue carvedilol and lisinopril. (6) BPH (benign prostatic hyperplasia) Impression: Continue with Flomax, finasteride and now a chronic Rodriguez catheter. (7) UTI (urinary tract infection) Impression: Resolved. He completed treatment with ciprofloxacin. (8) Delirium Impression: Resolved. He still at risk for sundowning but he has been doing well each night. Continue to limit sedatives. (9) Chest pain Impression: Resolved. His EKG did not suggest ischemia. Troponins were within normal limits. He has not had return of this chest pain. We will continue to monitor. (10) Back pain Impression: This was musculoskeletal and has resolved. We will continue with lidocaine patch and Tylenol as needed. Qualifiers: Back pain location: low back pain Chronicity: acute Back pain laterality: left (11) Constipation Assessment/Plan: Resolved; pt had a large BM Continue bowel protocol. - Current Meds Current Meds: Current Medications Generic Name Dose Route Start Last Admin Trade Name Freq PRN Reason Stop Dose Admin Acetaminophen 1,000 mg 04/16/21 15:44 05/19/21 07:58 Acetaminophen 500 Mg Tablet PO 1,000 mg Q6H PRN Administration Pain or Fever > 38C (100.4F) Apixaban 5 mg 04/27/21 21:00 05/18/21 20:28 Apixaban 5 Mg Tablet PO 5 mg BID PHAN Administration Atorvastatin Calcium 40 mg 04/19/21 21:00 05/18/21 20:28 Atorvastatin 40 Mg Tablet PO 40 mg QPM PHAN Administration Carvedilol 3.125 mg 04/19/21 12:00 05/18/21 20:28 Carvedilol 3.125 Mg Tablet PO 3.125 mg BID PHAN Administration Cyclobenzaprine HCl 10 mg 05/18/21 20:14 05/18/21 20:23 Cyclobenzaprine 10 Mg Tablet PO 10 mg TID PRN Administration Spasms Docusate Sodium 250 - 500 mg 04/16/21 09:00 05/18/21 09:00 Docusate Sodium 250 Mg Capsule PO 250 mg DAILY PHAN Administration Finasteride 5 mg 04/17/21 21:00 05/18/21 20:28 Finasteride 5 Mg Tablet PO 5 mg BID PHAN Administration Levetiracetam 1,000 mg 05/05/21 22:00 05/18/21 20:28 Levetiracetam 250 Mg Tablet PO 1,000 mg BID PHAN Administration Lisinopril 10 mg 05/16/21 09:00 05/18/21 09:03 Lisinopril 20 Mg Tablet PO 10 mg DAILY PHAN Administration Magnesium Oxide 400 mg 05/14/21 12:00 05/19/21 07:58 Magnesium Oxide 400 Mg Tablet PO 400 mg DAILYWM PHAN Administration Multivitamins/Minerals 1 tab 04/18/21 12:00 05/19/21 07:58 Multivitamin W/Minerals Tablet PO 1 tab DAILYWM PHAN Administration Ondansetron HCl 4 mg 04/13/21 17:14 05/14/21 09:43 Ondansetron 4 Mg/2 Ml Vial IVP 4 mg Q6HR PRN Administration Nausea / Vomiting Oxcarbazepine 600 mg 05/09/21 21:00 05/18/21 20:28 Oxcarbazepine 150 Mg Tablet PO 600 mg BID PHAN Administration Oxycodone HCl 5 mg 05/18/21 20:15 05/18/21 20:22 Oxycodone 5 Mg Tablet PO 5 mg Q4HR PRN Administration PAIN Polyethylene Glycol 17 gm 04/16/21 09:00 05/18/21 08:51 Polyethylene Glycol 3350 17 Gm Packet PO 17 gm DAILY PHAN Administration Potassium Chloride 10 meq 05/16/21 12:00 05/19/21 07:58 Potassium Chloride 10 Meq Capsule PO 10 meq DAILYWM PHAN Administration Senna 8.6 - 17.2 mg 04/16/21 09:00 05/18/21 09:00 Senna 8.6 Mg Tablet PO 8.6 mg DAILY PHAN Administration Sodium Chloride 10 ml 04/13/21 17:14 05/18/21 21:55 Sodium Chloride Flush 0.9% 10 Ml Syringe IVP 10 ml PRN PRN Administration NEEDED PER PROVIDER ORDERS Sodium Chloride 10 ml 04/14/21 01:00 05/19/21 00:02 Sodium Chloride Flush 0.9% 10 Ml Syringe IVP 10 ml 0100,0900,1700 PHAN Administration Tamsulosin HCl 0.4 mg 04/14/21 09:00 05/18/21 08:59 Tamsulosin 0.4 Mg Capsule PO 0.4 mg DAILY PHAN Administration Throat Lozenges 1 lozenge 05/19/21 01:20 05/19/21 01:47 Benzocaine/Menthol Lozenge MM 1 lozenge Q2HR PRN Administration Throat pain - Lab Result Fish Bone Diagrams: 05/18/21 06:57 05/18/21 06:57 - Additional Planning My Orders: My Active Orders 05/19/21 01:20 Benzocaine/Menthol [Cepacol] 1 lozenge MM Q2HR PRN 05/19/21 08:03 Ibuprofen [Motrin] 600 mg PO Q6HR PRN 05/19/21 08:13 HYDROmorphone 0.5MG SYRINGE [Dilaudid 0.5MG Syringe] 0.5 mg IVP Q6H PRN Subjective - Subjective Patient Reports: Headache (And neck pain, was 9/10 last night and he needed Tylenol, Motrin, Flexewril and finally Dilaudid helped. Curremtly neck pain is 3/10.) Nursing Reports: Other (Ate his scrambled eggs with ham, eats his hamburgers every day) Objective Vital Signs: Vital Signs - 24 hr 05/18/21 05/18/21 05/18/21 16:00 17:47 19:50 Temperature 36.8 C 36.7 C Heart Rate [ 96 87 76 Brachial] Respiratory 20 20 20 Rate Blood Pressure [Right Brachial artery] Blood Pressure 129/62 127/65 117/70 [Right Radial artery] O2 Saturation 99 95 99 05/19/21 05/19/21 00:05 07:13 Temperature 36.3 C L 36.3 C L Heart Rate [ 65 60 Brachial] Respiratory 18 20 Rate Blood Pressure 121/63 [Right Brachial artery] Blood Pressure 116/59 L [Right Radial artery] O2 Saturation 98 99 Oxygen O2 Source Room air I&O (Last 24 Hrs): Intake and Output Totals x24h 05/17/21 05/18/21 05/19/21 23:59 23:59 23:59 Intake Total 1822 1124 222 Output Total 750 600 200 Balance 1072 524 22 General: Alert HEENT: Mucous membr. moist/pink Neck: Supple Neuro: Alert, Other (L arm weak) Cardiovascular: No murmurs Respiratory: No respiratory distress Abdomen: Soft Extremities: No edema - Results Results: Laboratory Results WBC 6.1 x10^3/uL (4.8-10.8) 05/18/21 06:57 RBC 3.32 10^6/uL (4.70-6.10) L 05/18/21 06:57 Hgb 9.6 g/dL (14.0-18.0) L 05/18/21 06:57 Hct 30.0 % (42.0-52.0) L 05/18/21 06:57 MCV 90.4 fL (80.0-94.0) 05/18/21 06:57 MCH 28.9 pg (27.0-31.0) 05/18/21 06:57 MCHC 32.0 g/dL (32.0-36.0) 05/18/21 06:57 RDW 13.2 % (12.0-15.0) 05/18/21 06:57 Plt Count 243 10^3/uL (130-450) 05/18/21 06:57 MPV 9.3 fL (7.4-11.4) 05/18/21 06:57 Neut # (Auto) 4.0 10^3/uL (1.5-6.6) 05/18/21 06:57 Lymph # (Auto) 1.3 10^3/uL (1.5-3.5) L 05/18/21 06:57 [place] # (Auto) 0.6 10^3/uL (0.0-1.0) 05/18/21 06:57 Eos # (Auto) 0.1 10^3/uL (0.0-0.7) 05/18/21 06:57 Baso # (Auto) 0.1 10^3/uL (0.0-0.1) 05/18/21 06:57 Absolute Nucleated RBC 0.00 x10^3/uL 05/18/21 06:57 Total Counted 100 04/22/21 10:26 Band Neuts % (Manual) 1 % (0-10) 04/22/21 10:26 Abnorm Lymph % (Manual) 0 % 04/22/21 10:26 Nucleated RBC % 0.0 /100WBC 05/18/21 06:57 Neutrophils # (Manual) 37.9 10^3/uL (1.5-6.6) H 04/22/21 10:26 Lymphocytes # (Manual) 0.0 10^3/uL (1.5-3.5) L 04/22/21 10:26 Monocytes # (Manual) 0.8 10^3/uL (0.0-1.0) 04/22/21 10:26 Eosinophils # (Manual) 0.0 10^3/uL (0-0.7) 04/22/21 10:26 Basophils # (Manual) 0.0 10^3/uL (0-0.1) 04/22/21 10:26 Differential Comment MANUAL DIFFERENTIAL 04/22/21 10:26 WBC Morphology NORMAL APPEARANCE (NORMAL) 04/22/21 04:40 Platelet Estimate NORMAL (130-450,000) (NORMAL) 04/22/21 10:26 Platelet Morphology NORMAL APPEARANCE (NORMAL) 04/22/21 10:26 RBC Morph Micro Appear NORMAL APPEARANCE (NORMAL) 04/22/21 10:26 Sodium 143 mmol/L (135-145) 05/18/21 06:57 Potassium 3.8 mmol/L (3.5-5.0) 05/18/21 06:57 Chloride 107 mmol/L (101-111) 05/18/21 06:57 Carbon Dioxide 28 mmol/L (21-32) 05/18/21 06:57 Anion Gap 8.0 (6-13) 05/18/21 06:57 BUN 30 mg/dL (6-20) H 05/18/21 06:57 Creatinine 1.0 mg/dL (0.6-1.2) 05/18/21 06:57 Estimated GFR (MDRD) 72 (>89) L 05/18/21 06:57 Glucose 114 mg/dL (70-100) H 05/18/21 06:57 POC Whole Bld Glucose 128 mg/dL (70 - 100) H 04/28/21 10:17 Calcium 8.9 mg/dL (8.5-10.3) 05/18/21 06:57 Magnesium 2.2 mg/dL (1.7-2.8) 05/18/21 06:57 Total Bilirubin 0.8 mg/dL (0.2-1.0) 04/13/21 13:10 AST 14 IU/L (10-42) 04/13/21 13:10 ALT 12 IU/L (10-60) 04/13/21 13:10 Alkaline Phosphatase 92 IU/L (42-121) 04/13/21 13:10 Troponin I High Sens 6.0 ng/L (2.3-19.7) 05/12/21 11:44 Total Protein 6.4 g/dL (6.7-8.2) L 04/13/21 13:10 Albumin 3.8 g/dL (3.2-5.5) 04/13/21 13:10 Globulin 2.6 g/dL (2.1-4.2) 04/13/21 13:10 Albumin/Globulin Ratio 1.5 (1.0-2.2) 04/13/21 13:10 Urine Color DARK YELLOW 04/22/21 12:01 Urine Clarity HAZY (CLEAR) 04/22/21 12:01 Urine pH 5.0 PH (5.0-7.5) 04/22/21 12:01 Ur Specific [place] >=1.030 (1.002-1.030) H 04/22/21 12:01 Urine Protein 30 mg/dL (NEGATIVE) H 04/22/21 12:01 Urine Glucose (UA) NEGATIVE mg/dL (NEGATIVE) 04/22/21 12:01 Urine Ketones TRACE mg/dL (NEGATIVE) 04/22/21 12:01 Urine Occult Blood LARGE (NEGATIVE) H 04/22/21 12:01 Urine Nitrite POSITIVE (NEGATIVE) H 04/22/21 12:01 Urine Bilirubin SMALL (NEGATIVE) H 04/22/21 12:01 Urine Urobilinogen 1 (NORMAL) E.U./dL (NORMAL) 04/22/21 12:01 Ur Leukocyte Esterase SMALL (NEGATIVE) H 04/22/21 12:01 Urine RBC TNTC /HPF (0-5) H 04/22/21 12:01 Urine WBC >25 /HPF (0-3) H 04/22/21 12:01 Ur Squamous Epith Cells RARE Squamous (<= Few) 04/22/21 12:01 Amorphous Sediment Few /LPF 04/15/21 11:50 Urine Bacteria Moderate /HPF (None Seen) H 04/22/21 12:01 Urine Mucus Moderate Strands 04/22/21 12:01 Urine Culture Comments INDICATED 04/22/21 12:01 Nasal Adenovirus (PCR) NOT DETECTED 04/13/21 16:48 Nasal B. parapertussis DNA (PCR) NOT DETECTED 04/13/21 16:48 Nasal Coronavir 229E PCR NOT DETECTED 04/13/21 16:48 Nasal Coronavir HKU1 PCR NOT DETECTED 04/13/21 16:48 Nasal Coronavir NL63 PCR NOT DETECTED 04/13/21 16:48 Nasal Coronavir OC43 PCR NOT DETECTED 04/13/21 16:48 Nasal Enterovir/Rhinovir PCR NOT DETECTED 04/13/21 16:48 Nasal Influenza B PCR NOT DETECTED 04/13/21 16:48 Nasal Influenza A PCR NOT DETECTED 04/13/21 16:48 Nasal Parainfluen 1 PCR NOT DETECTED 04/13/21 16:48 Nasal Parainfluen 2 PCR NOT DETECTED 04/13/21 16:48 Nasal Parainfluen 3 PCR NOT DETECTED 04/13/21 16:48 Nasal Parainfluen 4 PCR NOT DETECTED 04/13/21 16:48 Nasal RSV (PCR) NOT DETECTED 04/13/21 16:48 Nasal B.pertussis DNA PCR NOT DETECTED 04/13/21 16:48 Nasal C.pneumoniae (PCR) NOT DETECTED 04/13/21 16:48 Mian Human Metapneumo PCR NOT DETECTED 04/13/21 16:48 Nasal M.pneumoniae (PCR) NOT DETECTED 04/13/21 16:48 Nasal SARS-CoV-2 (PCR) NOT DETECTED 04/13/21 16:48 Levetiracetam 28.3 mcg/mL 04/25/21 12:24 Ethyl Alcohol < 5.0 mg/dL 04/13/21 13:10
[2021-05-19] MEDS ORDERED: HYDROmorphone 2 MG TABLET PO PRN (08:32)
[2021-05-19] MEDS: LIDOCAINE PATCH 5% TOP PRN (09:10)
[2021-05-19] MEDS: IBUPROFEN 600 MG TABLET PO PRN (09:11)
[2021-05-19] MEDS: OXcarbazepine 150 MG TABLET PO SCH ×2 (09:23→20:33)
[2021-05-19] MEDS: levETIRAcetam 250 MG TABLET PO SCH ×2 (09:23→20:33)
[2021-05-19] MEDS: DOCUSATE SODIUM 250 MG CAPSULE PO SCH (10:03)
[2021-05-19] MEDS: polyethylene glycoL 3350 17 GM PACKET PO SCH (10:03)
[2021-05-19] MEDS: carvediloL 3.125 MG TABLET PO SCH ×2 (10:04→20:34)
[2021-05-19] MEDS: TAMSULOSIN 0.4 MG CAPSULE PO SCH (10:04)
[2021-05-19] MEDS: FINASTERIDE 5 MG TABLET PO SCH ×2 (10:04→20:34)
[2021-05-19] MEDS: APIXABAN 5 MG TABLET PO SCH ×2 (10:04→20:34)
[2021-05-19] MEDS: SENNA 8.6 MG TABLET PO SCH (10:04)
[2021-05-19] MEDS: lisinopriL 20 MG TABLET PO SCH (10:08)
[2021-05-19] MEDS: CYCLOBENZAPRINE 10 MG TABLET PO PRN (16:46)
[2021-05-19] MEDS: ATORVASTATIN 40 MG TABLET PO SCH (20:34)
[2021-05-20] MEDS: SODIUM CHLORIDE FLUSH 0.9% 10 ML SYRINGE IVP SCH ×3 (00:22→15:50)
[2021-05-20] MEDS: POTASSIUM CHLORIDE 10 MEQ CAPSULE PO SCH (08:44)
[2021-05-20] MEDS: polyethylene glycoL 3350 17 GM PACKET PO SCH (08:44)
[2021-05-20] MEDS: MAGNESIUM OXIDE 400 MG TABLET PO SCH (08:45)
[2021-05-20] MEDS: MULTIVITAMIN W/MINERALS TABLET PO SCH (08:45)
[2021-05-20] MEDS: OXcarbazepine 150 MG TABLET PO SCH ×2 (08:58→19:46)
[2021-05-20] MEDS: levETIRAcetam 250 MG TABLET PO SCH ×2 (08:59→19:45)
[2021-05-20] MEDS: APIXABAN 5 MG TABLET PO SCH ×2 (08:59→19:46)
[2021-05-20] MEDS: SENNA 8.6 MG TABLET PO SCH (09:05)
[2021-05-20] MEDS: FINASTERIDE 5 MG TABLET PO SCH ×2 (09:05→19:46)
[2021-05-20] MEDS: TAMSULOSIN 0.4 MG CAPSULE PO SCH (09:05)
[2021-05-20] MEDS: carvediloL 3.125 MG TABLET PO SCH ×2 (09:05→19:45)
[2021-05-20] MEDS: DOCUSATE SODIUM 250 MG CAPSULE PO SCH (09:06)
[2021-05-20] MEDS: lisinopriL 20 MG TABLET PO SCH (09:07)
[2021-05-20] MEDS ORDERED: BISACODYL 10 MG SUPP PR ONE (09:45)
--- NOTE | 2021-05-20 13:31 | PROVIDER PROGRESS NOTE ---
Assessment/Plan - Problem List (1) Neck pain Assessment/Plan: Improving He had musculoskeletal neck pain earlier this admission then severe neck pain recurred twice yesterday and the Hospitalist tried to perform neck massage. Tylenol and Motrin did not help, Flexeril was tried too. Finally he got Dilaudid with good effect. Will continue with pain meds and Flexeril if needed. Will change the Dilaudid to po prn severe pain, so that he has that available at a SNF. We also ordered a Lidocaine patch to put on his neck. He is medically cleared for discharge. (2) Seizure as late effect of cerebrovascular accident (CVA) Assessment/Plan: This was the reason for admission (then he had several different complications). Stabilized but gets occais L arm shaking and has L sided neglect. We will continue the current dose of Trileptal and Keppra. At this point he is medically cleared for discharge. He was evaluated by physical therapy and SNF is recommended. SW is working on getting him placement. (3) Left-sided muscle weakness Impression: He still appears to have minor left-sided deficits with fine motor skills. 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 MRI showed no evidence of acute stroke. At this point he is medically cleared for discharge. He was evaluated by physical therapy and SNF is recommended. (4) Afib Impression: He remains rate controlled on carvedilol. We will continue Eliquis. (5) Cardiomyopathy Impression: He has a history of heart failure with reduced ejection fraction but during this admission an Echo showed his EF is preserved. Labs were done today (he has had none in 6 days) and showed stable electrolytes and only mild dehydration (pre-renal azotemia), but he is not getting a diuretic, and suspect it is from his choosy nature to foods and drinks. We will continue carvedilol and lisinopril. (6) BPH (benign prostatic hyperplasia) Impression: Continue with Flomax, finasteride and now a chronic Rodriguez catheter. (7) UTI (urinary tract infection) Impression: Resolved. He completed treatment with ciprofloxacin. (8) Delirium Impression: Resolved. He still at risk for sundowning but he has been doing well each night. Continue to limit sedatives. (9) Chest pain Impression: Resolved. His EKG did not suggest ischemia. Troponins were within normal limits. He has not had return of this chest pain. We will continue to monitor. (10) Back pain Impression: This was musculoskeletal and has resolved. We will continue with lidocaine patch and Tylenol as needed. Qualifiers: Back pain location: low back pain Chronicity: acute Back pain laterality: left (11) Constipation Assessment/Plan: Resolved; pt had a large BM Continue bowel protocol. - Current Meds Current Meds: Current Medications Generic Name Dose Route Start Last Admin Trade Name Freq PRN Reason Stop Dose Admin Acetaminophen 1,000 mg 04/16/21 15:44 05/19/21 16:47 Acetaminophen 500 Mg Tablet PO 1,000 mg Q6H PRN Administration Pain or Fever > 38C (100.4F) Apixaban 5 mg 04/27/21 21:00 05/20/21 08:59 Apixaban 5 Mg Tablet PO 5 mg BID PHAN Administration Atorvastatin Calcium 40 mg 04/19/21 21:00 05/19/21 20:34 Atorvastatin 40 Mg Tablet PO 40 mg QPM PHAN Administration Carvedilol 3.125 mg 04/19/21 12:00 05/20/21 09:05 Carvedilol 3.125 Mg Tablet PO 3.125 mg BID PHAN Administration Cyclobenzaprine HCl 10 mg 05/18/21 20:14 05/19/21 16:46 Cyclobenzaprine 10 Mg Tablet PO 10 mg TID PRN Administration Spasms Docusate Sodium 250 - 500 mg 04/16/21 09:00 05/20/21 09:06 Docusate Sodium 250 Mg Capsule PO 250 mg DAILY PHAN Administration Finasteride 5 mg 04/17/21 21:00 05/20/21 09:05 Finasteride 5 Mg Tablet PO 5 mg BID PHAN Administration Ibuprofen 600 mg 05/19/21 08:03 05/19/21 09:11 Ibuprofen 600 Mg Tablet PO 600 mg Q6HR PRN Administration PAIN Levetiracetam 1,000 mg 05/05/21 22:00 05/20/21 08:59 Levetiracetam 250 Mg Tablet PO 1,000 mg BID PHAN Administration Lidocaine 1 patch 05/19/21 08:33 05/19/21 09:10 Lidocaine Patch 5% TOP 1 patch DAILY PRN Administration PAIN Lisinopril 10 mg 05/16/21 09:00 05/20/21 09:07 Lisinopril 20 Mg Tablet PO 10 mg DAILY PHAN Administration Magnesium Oxide 400 mg 05/14/21 12:00 05/20/21 08:45 Magnesium Oxide 400 Mg Tablet PO 400 mg DAILYWM PHAN Administration Multivitamins/Minerals 1 tab 04/18/21 12:00 05/20/21 08:45 Multivitamin W/Minerals Tablet PO 1 tab DAILYWM PHAN Administration Ondansetron HCl 4 mg 04/13/21 17:14 05/14/21 09:43 Ondansetron 4 Mg/2 Ml Vial IVP 4 mg Q6HR PRN Administration Nausea / Vomiting Oxcarbazepine 600 mg 05/09/21 21:00 05/20/21 08:58 Oxcarbazepine 150 Mg Tablet PO 600 mg BID PHAN Administration Oxycodone HCl 5 mg 05/18/21 20:15 05/18/21 20:22 Oxycodone 5 Mg Tablet PO 5 mg Q4HR PRN Administration PAIN Polyethylene Glycol 17 gm 04/16/21 09:00 05/20/21 08:44 Polyethylene Glycol 3350 17 Gm Packet PO 17 gm DAILY PHAN Administration Potassium Chloride 10 meq 05/16/21 12:00 05/20/21 08:44 Potassium Chloride 10 Meq Capsule PO 10 meq DAILYWM PHAN Administration Senna 8.6 - 17.2 mg 04/16/21 09:00 05/20/21 09:05 Senna 8.6 Mg Tablet PO 8.6 mg DAILY PHAN Administration Sodium Chloride 10 ml 04/13/21 17:14 05/18/21 21:55 Sodium Chloride Flush 0.9% 10 Ml Syringe IVP 10 ml PRN PRN Administration NEEDED PER PROVIDER ORDERS Sodium Chloride 10 ml 04/14/21 01:00 05/20/21 08:45 Sodium Chloride Flush 0.9% 10 Ml Syringe IVP 10 ml 0100,0900,1700 PHAN Administration Tamsulosin HCl 0.4 mg 04/14/21 09:00 05/20/21 09:05 Tamsulosin 0.4 Mg Capsule PO 0.4 mg DAILY PHAN Administration Throat Lozenges 1 lozenge 05/19/21 01:20 05/19/21 01:47 Benzocaine/Menthol Lozenge MM 1 lozenge Q2HR PRN Administration Throat pain - Lab Result Fish Bone Diagrams: 05/18/21 06:57 05/18/21 06:57 Subjective - Subjective Patient Reports: Resting Comfortably, No Complaints Objective Vital Signs: Vital Signs - 24 hr 05/19/21 05/20/21 05/20/21 15:27 00:22 08:07 Temperature 36.6 C 36.4 C L 36.5 C Heart Rate [ 78 66 77 Brachial] Respiratory 20 16 19 Rate Blood Pressure 99/49 L [Right Brachial artery] Blood Pressure 115/52 L 125/72 [Right Radial artery] O2 Saturation 96 97 98 Oxygen O2 Source Room air I&O (Last 24 Hrs): Intake and Output Totals x24h 05/18/21 05/19/21 05/20/21 23:59 23:59 23:59 Intake Total 1124 946 360 Output Total 600 575 925 Balance 524 371 -565 General: Alert, Other (Cachectic) HEENT: Mucous membr. moist/pink, Other (Has one tooth) Neck: Supple Neuro: Other (L arm weak and neglected) Cardiovascular: Regular rate Respiratory: No respiratory distress Abdomen: Soft Extremities: No edema - Results Results: Laboratory Results WBC 6.1 x10^3/uL (4.8-10.8) 05/18/21 06:57 RBC 3.32 10^6/uL (4.70-6.10) L 05/18/21 06:57 Hgb 9.6 g/dL (14.0-18.0) L 05/18/21 06:57 Hct 30.0 % (42.0-52.0) L 05/18/21 06:57 MCV 90.4 fL (80.0-94.0) 05/18/21 06:57 MCH 28.9 pg (27.0-31.0) 05/18/21 06:57 MCHC 32.0 g/dL (32.0-36.0) 05/18/21 06:57 RDW 13.2 % (12.0-15.0) 05/18/21 06:57 Plt Count 243 10^3/uL (130-450) 05/18/21 06:57 MPV 9.3 fL (7.4-11.4) 05/18/21 06:57 Neut # (Auto) 4.0 10^3/uL (1.5-6.6) 05/18/21 06:57 Lymph # (Auto) 1.3 10^3/uL (1.5-3.5) L 05/18/21 06:57 [place] # (Auto) 0.6 10^3/uL (0.0-1.0) 05/18/21 06:57 Eos # (Auto) 0.1 10^3/uL (0.0-0.7) 05/18/21 06:57 Baso # (Auto) 0.1 10^3/uL (0.0-0.1) 05/18/21 06:57 Absolute Nucleated RBC 0.00 x10^3/uL 05/18/21 06:57 Total Counted 100 04/22/21 10:26 Band Neuts % (Manual) 1 % (0-10) 04/22/21 10:26 Abnorm Lymph % (Manual) 0 % 04/22/21 10:26 Nucleated RBC % 0.0 /100WBC 05/18/21 06:57 Neutrophils # (Manual) 37.9 10^3/uL (1.5-6.6) H 04/22/21 10:26 Lymphocytes # (Manual) 0.0 10^3/uL (1.5-3.5) L 04/22/21 10:26 Monocytes # (Manual) 0.8 10^3/uL (0.0-1.0) 04/22/21 10:26 Eosinophils # (Manual) 0.0 10^3/uL (0-0.7) 04/22/21 10:26 Basophils # (Manual) 0.0 10^3/uL (0-0.1) 04/22/21 10:26 Differential Comment MANUAL DIFFERENTIAL 04/22/21 10:26 WBC Morphology NORMAL APPEARANCE (NORMAL) 04/22/21 04:40 Platelet Estimate NORMAL (130-450,000) (NORMAL) 04/22/21 10:26 Platelet Morphology NORMAL APPEARANCE (NORMAL) 04/22/21 10:26 RBC Morph Micro Appear NORMAL APPEARANCE (NORMAL) 04/22/21 10:26 Sodium 143 mmol/L (135-145) 05/18/21 06:57 Potassium 3.8 mmol/L (3.5-5.0) 05/18/21 06:57 Chloride 107 mmol/L (101-111) 05/18/21 06:57 Carbon Dioxide 28 mmol/L (21-32) 05/18/21 06:57 Anion Gap 8.0 (6-13) 05/18/21 06:57 BUN 30 mg/dL (6-20) H 05/18/21 06:57 Creatinine 1.0 mg/dL (0.6-1.2) 05/18/21 06:57 Estimated GFR (MDRD) 72 (>89) L 05/18/21 06:57 Glucose 114 mg/dL (70-100) H 05/18/21 06:57 POC Whole Bld Glucose 128 mg/dL (70 - 100) H 04/28/21 10:17 Calcium 8.9 mg/dL (8.5-10.3) 05/18/21 06:57 Magnesium 2.2 mg/dL (1.7-2.8) 05/18/21 06:57 Total Bilirubin 0.8 mg/dL (0.2-1.0) 04/13/21 13:10 AST 14 IU/L (10-42) 04/13/21 13:10 ALT 12 IU/L (10-60) 04/13/21 13:10 Alkaline Phosphatase 92 IU/L (42-121) 04/13/21 13:10 Troponin I High Sens 6.0 ng/L (2.3-19.7) 05/12/21 11:44 Total Protein 6.4 g/dL (6.7-8.2) L 04/13/21 13:10 Albumin 3.8 g/dL (3.2-5.5) 04/13/21 13:10 Globulin 2.6 g/dL (2.1-4.2) 04/13/21 13:10 Albumin/Globulin Ratio 1.5 (1.0-2.2) 04/13/21 13:10 Urine Color DARK YELLOW 04/22/21 12:01 Urine Clarity HAZY (CLEAR) 04/22/21 12:01 Urine pH 5.0 PH (5.0-7.5) 04/22/21 12:01 Ur Specific [place] >=1.030 (1.002-1.030) H 04/22/21 12:01 Urine Protein 30 mg/dL (NEGATIVE) H 04/22/21 12:01 Urine Glucose (UA) NEGATIVE mg/dL (NEGATIVE) 04/22/21 12:01 Urine Ketones TRACE mg/dL (NEGATIVE) 04/22/21 12:01 Urine Occult Blood LARGE (NEGATIVE) H 04/22/21 12:01 Urine Nitrite POSITIVE (NEGATIVE) H 04/22/21 12:01 Urine Bilirubin SMALL (NEGATIVE) H 04/22/21 12:01 Urine Urobilinogen 1 (NORMAL) E.U./dL (NORMAL) 04/22/21 12:01 Ur Leukocyte Esterase SMALL (NEGATIVE) H 04/22/21 12:01 Urine RBC TNTC /HPF (0-5) H 04/22/21 12:01 Urine WBC >25 /HPF (0-3) H 04/22/21 12:01 Ur Squamous Epith Cells RARE Squamous (<= Few) 04/22/21 12:01 Amorphous Sediment Few /LPF 04/15/21 11:50 Urine Bacteria Moderate /HPF (None Seen) H 04/22/21 12:01 Urine Mucus Moderate Strands 04/22/21 12:01 Urine Culture Comments INDICATED 04/22/21 12:01 Nasal Adenovirus (PCR) NOT DETECTED 04/13/21 16:48 Nasal B. parapertussis DNA (PCR) NOT DETECTED 04/13/21 16:48 Nasal Coronavir 229E PCR NOT DETECTED 04/13/21 16:48 Nasal Coronavir HKU1 PCR NOT DETECTED 04/13/21 16:48 Nasal Coronavir NL63 PCR NOT DETECTED 04/13/21 16:48 Nasal Coronavir OC43 PCR NOT DETECTED 04/13/21 16:48 Nasal Enterovir/Rhinovir PCR NOT DETECTED 04/13/21 16:48 Nasal Influenza B PCR NOT DETECTED 04/13/21 16:48 Nasal Influenza A PCR NOT DETECTED 04/13/21 16:48 Nasal Parainfluen 1 PCR NOT DETECTED 04/13/21 16:48 Nasal Parainfluen 2 PCR NOT DETECTED 04/13/21 16:48 Nasal Parainfluen 3 PCR NOT DETECTED 04/13/21 16:48 Nasal Parainfluen 4 PCR NOT DETECTED 04/13/21 16:48 Nasal RSV (PCR) NOT DETECTED 04/13/21 16:48 Nasal B.pertussis DNA PCR NOT DETECTED 04/13/21 16:48 Nasal C.pneumoniae (PCR) NOT DETECTED 04/13/21 16:48 Mian Human Metapneumo PCR NOT DETECTED 04/13/21 16:48 Nasal M.pneumoniae (PCR) NOT DETECTED 04/13/21 16:48 Nasal SARS-CoV-2 (PCR) NOT DETECTED 04/13/21 16:48 Levetiracetam 28.3 mcg/mL 04/25/21 12:24 Ethyl Alcohol < 5.0 mg/dL 04/13/21 13:10
[2021-05-20] MEDS: ATORVASTATIN 40 MG TABLET PO SCH (19:44)
[2021-05-20] MEDS: IBUPROFEN 600 MG TABLET PO PRN (19:45)
[2021-05-21] MEDS: SODIUM CHLORIDE FLUSH 0.9% 10 ML SYRINGE IVP SCH ×4 (00:04→23:36)
[2021-05-21] MEDS: POTASSIUM CHLORIDE 10 MEQ CAPSULE PO SCH (08:28)
[2021-05-21] MEDS: FINASTERIDE 5 MG TABLET PO SCH ×2 (08:28→21:51)
[2021-05-21] MEDS: lisinopriL 20 MG TABLET PO SCH (08:28)
[2021-05-21] MEDS: TAMSULOSIN 0.4 MG CAPSULE PO SCH (08:28)
[2021-05-21] MEDS: MULTIVITAMIN W/MINERALS TABLET PO SCH (08:28)
[2021-05-21] MEDS: APIXABAN 5 MG TABLET PO SCH ×2 (08:28→21:51)
[2021-05-21] MEDS: DOCUSATE SODIUM 250 MG CAPSULE PO SCH (08:28)
[2021-05-21] MEDS: MAGNESIUM OXIDE 400 MG TABLET PO SCH (08:28)
[2021-05-21] MEDS: SENNA 8.6 MG TABLET PO SCH (08:28)
[2021-05-21] MEDS: carvediloL 3.125 MG TABLET PO SCH ×2 (08:29→21:51)
[2021-05-21] MEDS: levETIRAcetam 250 MG TABLET PO SCH ×2 (08:29→21:52)
[2021-05-21] MEDS: polyethylene glycoL 3350 17 GM PACKET PO SCH (08:29)
[2021-05-21] MEDS: OXcarbazepine 150 MG TABLET PO SCH ×2 (08:29→21:50)
--- NOTE | 2021-05-21 09:12 | PROVIDER PROGRESS NOTE ---
Subjective - Prog Note Date Prog Note Date: 05/21/21 Prog Note Time: 09:09 - Subjective Pt reports feeling: Improved Subjective: his neck dosn't hurt as much. watching TV and comments "have gun will travel" is a great show. no cp, no sob. L arm twitching is stable. . Current Medications - Current Medications Current Medications: Active Medications Acetaminophen (Acetaminophen 500 Mg Tablet) 1,000 mg PO Q6H PRN PRN Reason: Pain or Fever > 38C (100.4F) Last Admin: 05/19/21 16:47 Dose: 1,000 mg Documented by: Apixaban (Apixaban 5 Mg Tablet) 5 mg PO BID [facility] Last Admin: 05/21/21 08:28 Dose: 5 mg Documented by: Atorvastatin Calcium (Atorvastatin 40 Mg Tablet) 40 mg PO QPM [facility] Last Admin: 05/20/21 19:44 Dose: 40 mg Documented by: Carvedilol (Carvedilol 3.125 Mg Tablet) 3.125 mg PO BID [facility] Last Admin: 05/21/21 08:29 Dose: 3.125 mg Documented by: Cyclobenzaprine HCl (Cyclobenzaprine 10 Mg Tablet) 10 mg PO TID PRN PRN Reason: Spasms Last Admin: 05/19/21 16:46 Dose: 10 mg Documented by: Docusate Sodium (Docusate Sodium 250 Mg Capsule) 250 - 500 mg PO DAILY [facility] Last Admin: 05/21/21 08:28 Dose: 250 mg Documented by: Finasteride (Finasteride 5 Mg Tablet) 5 mg PO BID [facility] Last Admin: 05/21/21 08:28 Dose: 5 mg Documented by: Hydromorphone HCl (Hydromorphone 2 Mg Tablet) 2 mg PO Q6HR PRN PRN Reason: Severe Pain Ibuprofen (Ibuprofen 600 Mg Tablet) 600 mg PO Q6HR PRN PRN Reason: PAIN Last Admin: 05/20/21 19:45 Dose: 600 mg Documented by: Levetiracetam (Levetiracetam 250 Mg Tablet) 1,000 mg PO BID [facility] Last Admin: 05/21/21 08:29 Dose: 1,000 mg Documented by: Lidocaine (Lidocaine Patch 5%) 1 patch TOP DAILY PRN PRN Reason: PAIN Last Admin: 05/19/21 09:10 Dose: 1 patch Documented by: Lisinopril (Lisinopril 20 Mg Tablet) 10 mg PO DAILY [facility] Last Admin: 05/21/21 08:28 Dose: 10 mg Documented by: Magnesium Oxide (Magnesium Oxide 400 Mg Tablet) 400 mg PO DAILYWM [facility] Last Admin: 05/21/21 08:28 Dose: 400 mg Documented by: Multivitamins/Minerals (Multivitamin W/Minerals Tablet) 1 tab PO DAILYWM [facility] Last Admin: 05/21/21 08:28 Dose: 1 tab Documented by: Ondansetron HCl (Ondansetron 4 Mg/2 Ml Vial) 4 mg IVP Q6HR PRN PRN Reason: Nausea / Vomiting Last Admin: 05/14/21 09:43 Dose: 4 mg Documented by: Oxcarbazepine (Oxcarbazepine 150 Mg Tablet) 600 mg PO BID [facility] Last Admin: 05/21/21 08:29 Dose: 600 mg Documented by: Oxycodone HCl (Oxycodone 5 Mg Tablet) 5 mg PO Q4HR PRN PRN Reason: PAIN Last Admin: 05/18/21 20:22 Dose: 5 mg Documented by: Polyethylene Glycol (Polyethylene Glycol 3350 17 Gm Packet) 17 gm PO DAILY [facility] Last Admin: 05/21/21 08:29 Dose: 17 gm Documented by: Potassium Chloride (Potassium Chloride 10 Meq Capsule) 10 meq PO DAILYWM [facility] Last Admin: 05/21/21 08:28 Dose: 10 meq Documented by: Senna (Senna 8.6 Mg Tablet) 8.6 - 17.2 mg PO DAILY [facility] Last Admin: 05/21/21 08:28 Dose: 8.6 mg Documented by: Sodium Chloride (Sodium Chloride Flush 0.9% 10 Ml Syringe) 10 ml IVP PRN PRN PRN Reason: NEEDED PER PROVIDER ORDERS Last Admin: 05/18/21 21:55 Dose: 10 ml Documented by: Sodium Chloride (Sodium Chloride Flush 0.9% 10 Ml Syringe) 10 ml IVP 0100,0900,1700 [facility] Last Admin: 05/21/21 08:29 Dose: 10 ml Documented by: Tamsulosin HCl (Tamsulosin 0.4 Mg Capsule) 0.4 mg PO DAILY [facility] Last Admin: 05/21/21 08:28 Dose: 0.4 mg Documented by: Throat Lozenges (Benzocaine/Menthol Lozenge) 1 lozenge MM Q2HR PRN PRN Reason: Throat pain Last Admin: 05/19/21 01:47 Dose: 1 lozenge Documented by: Apixaban [Eliquis] 1 tab PO DAILY 04/13/21 Finasteride [Proscar] 5 mg PO DAILY 04/13/21 Lisinopril [Zestril] 20 mg PO DAILY 04/13/21 Tamsulosin [Flomax] 0.4 mg PO DAILY 04/13/21 Objective - Vital Signs/Intake & Output Reviewed Vital Signs: Yes Vital Signs: Vital Signs x48h Temp Pulse Resp BP Pulse Ox 05/21/21 07:46 36.4 C L 66 18 117/50 L 98 Intake & Output: Intake & Output 05/18/21 05/19/21 05/20/21 05/21/21 23:59 23:59 23:59 23:59 Intake Total 1124 946 730 222 Output Total 851 030 8358 250 Balance 524 371 -695 -28 - Objective General Appearance: positive: No acute distress, Alert (watching TV and using remote appropirately to mute or change channels), Other (thin, lanky elderly male) Eyes Bilateral: positive: PERRL, EOMI ENT: positive: No signs of dehydration Neck: positive: No JVD. negative: Stiff neck Respiratory: positive: No respiratory distress. negative: Wheezes, Rales, Rhonchi Cardiovascular: positive: Regular rate & rhythm. negative: Gallop/S4, Friction rub Abdomen: positive: Non-tender, No organomegaly, Nml bowel sounds, No distention Skin: positive: Warm, Dry Neurologic/Psychiatric: positive: Oriented x3. negative: CN's nml (2-12) (subtle left facial droop), Motor nml (subtle L arm and L leg decreased strength incomparison to R) - Lab Results Fish Bones: 05/18/21 06:57 05/18/21 06:57 Assessment/Plan - Problem List (1) Neck pain Impression: Improving He had musculoskeletal neck pain earlier this admission then severe neck pain recurred twice 05/20 and the Hospitalist tried to perform neck massage. Tylenol and Motrin did not help, Flexeril was tried too. Finally he got Dilaudid with good effect. On pain meds and Flexeril if needed and are po for SNF use. . Also on Lidocaine patch to put on his neck. He is medically cleared for discharge. (2) Seizure as late effect of cerebrovascular accident (CVA) Assessment/Plan: This was the reason for admission (then he had several different complications). Stabilized but gets occais L arm shaking and has L sided neglect. We will continue the current dose of Trileptal and Keppra. At this point he is medically cleared for discharge. He was evaluated by phys ical therapy and SNF is recommended. SW is working on getting him placement. 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 MRI showed no evidence of acute stroke. At this point he is medically cleared for discharge. He was evaluated by physical therapy and SNF is recommended. (4) Afib Impression: He remains rate controlled on carvedilol. We will continue Eliquis. (5) Cardiomyopathy Impression: He has a history of heart failure with reduced ejection fraction but during this admission an Echo showed his EF is preserved. Labs were done today (he has had none in 6 days) and showed stable electrolytes and only mild dehydration (pre-renal azotemia), but he is not getting a diuretic, and suspect it is from his choosy nature to foods and drinks. We will continue carvedilol and lisinopril. (6) BPH (benign prostatic hyperplasia) Impression: Continue with Flomax, finasteride and now a chronic Rodriguez catheter. (7) UTI (urinary tract infection) Impression: Resolved. He completed treatment with ciprofloxacin. (8) Delirium Impression: Resolved. He still at risk for sundowning but he has been doing well each night. Continue to limit sedatives. (9) Chest pain Impression: Resolved. His EKG did not suggest ischemia. Troponins were within normal limits. He has not had return of this chest pain. We will continue to monitor. (10) Back pain Impression: This was musculoskeletal and has resolved. We will continue with lidocaine patch and Tylenol as needed. Qualifiers: Back pain location: low back pain Chronicity: acute Back pain laterality: left (11) Constipation Assessment/Plan: Resolved; pt had a large BM
[2021-05-21] MEDS: CYCLOBENZAPRINE 10 MG TABLET PO PRN (10:30)
[2021-05-21] MEDS: IBUPROFEN 600 MG TABLET PO PRN ×2 (10:30→21:51)
[2021-05-21] MEDS: ACETAMINOPHEN 500 MG TABLET PO PRN (11:13)
[2021-05-21] MEDS: LIDOCAINE PATCH 5% TOP PRN (11:13)
[2021-05-21] MEDS: ATORVASTATIN 40 MG TABLET PO SCH (21:51)
[2021-05-21] MEDS ORDERED: ZINC OXIDE 20% OINT 30 GM TUBE TOP PRN (22:41)
[2021-05-21] MEDS ORDERED: WITCH HAZEL/GLYCERIN 1 PAD TOP PRN (22:42)
[2021-05-21] MEDS: oxyCODONE 5 MG TABLET PO PRN (23:36)
[2021-05-22] MEDS: CYCLOBENZAPRINE 10 MG TABLET PO PRN (00:57)
[2021-05-22] MEDS: SENNA 8.6 MG TABLET PO SCH (09:09)
[2021-05-22] MEDS: IBUPROFEN 600 MG TABLET PO PRN (09:09)
[2021-05-22] MEDS: ACETAMINOPHEN 500 MG TABLET PO PRN (09:09)
[2021-05-22] MEDS: FINASTERIDE 5 MG TABLET PO SCH ×2 (09:09→20:28)
[2021-05-22] MEDS: BENZOCAINE/MENTHOL LOZENGE MM PRN (09:10)
[2021-05-22] MEDS: OXcarbazepine 150 MG TABLET PO SCH ×2 (09:10→20:26)
[2021-05-22] MEDS: lisinopriL 20 MG TABLET PO SCH (09:10)
[2021-05-22] MEDS: MULTIVITAMIN W/MINERALS TABLET PO SCH (09:10)
[2021-05-22] MEDS: POTASSIUM CHLORIDE 10 MEQ CAPSULE PO SCH (09:10)
[2021-05-22] MEDS: levETIRAcetam 250 MG TABLET PO SCH ×2 (09:10→20:27)
[2021-05-22] MEDS: MAGNESIUM OXIDE 400 MG TABLET PO SCH (09:10)
[2021-05-22] MEDS: DOCUSATE SODIUM 250 MG CAPSULE PO SCH (09:11)
[2021-05-22] MEDS: TAMSULOSIN 0.4 MG CAPSULE PO SCH (09:11)
[2021-05-22] MEDS: polyethylene glycoL 3350 17 GM PACKET PO SCH (09:11)
[2021-05-22] MEDS: APIXABAN 5 MG TABLET PO SCH ×2 (09:11→20:26)
[2021-05-22] MEDS: carvediloL 3.125 MG TABLET PO SCH ×2 (09:14→20:26)
[2021-05-22] MEDS: SODIUM CHLORIDE FLUSH 0.9% 10 ML SYRINGE IVP SCH ×3 (09:15→23:57)
--- NOTE | 2021-05-22 13:50 | PROVIDER PROGRESS NOTE ---
Subjective - Prog Note Date Prog Note Date: 05/22/21 Prog Note Time: 13:49 - Subjective Pt reports feeling: Improved Subjective: he has had no further neck pain since 05/21 and we think he has malposition with sleeping after watching him and trying to figure out where the neck pain is from. He had 4 doses of flexeril over 4 days and 2 oxycodone over 4 days and never needed the dilaudid that was ordered. He has not had anymore gran mal seizures since 04/24 and a Jacksonian 04/26. Current Medications - Current Medications Current Medications: Active Medications Acetaminophen (Acetaminophen 500 Mg Tablet) 1,000 mg PO Q6H PRN PRN Reason: Pain or Fever > 38C (100.4F) Last Admin: 05/22/21 09:09 Dose: 1,000 mg Documented by: Apixaban (Apixaban 5 Mg Tablet) 5 mg PO BID [facility] Last Admin: 05/22/21 09:11 Dose: 5 mg Documented by: Atorvastatin Calcium (Atorvastatin 40 Mg Tablet) 40 mg PO QPM [facility] Last Admin: 05/21/21 21:51 Dose: 40 mg Documented by: Carvedilol (Carvedilol 3.125 Mg Tablet) 3.125 mg PO BID [facility] Last Admin: 05/22/21 09:14 Dose: 3.125 mg Documented by: Cyclobenzaprine HCl (Cyclobenzaprine 10 Mg Tablet) 10 mg PO TID PRN PRN Reason: Spasms Last Admin: 05/22/21 00:57 Dose: 10 mg Documented by: Docusate Sodium (Docusate Sodium 250 Mg Capsule) 250 - 500 mg PO DAILY [facility] Last Admin: 05/22/21 09:11 Dose: 250 mg Documented by: Finasteride (Finasteride 5 Mg Tablet) 5 mg PO BID [facility] Last Admin: 05/22/21 09:09 Dose: 5 mg Documented by: Ibuprofen (Ibuprofen 600 Mg Tablet) 600 mg PO Q6HR PRN PRN Reason: PAIN Last Admin: 05/22/21 09:09 Dose: 600 mg Documented by: Levetiracetam (Levetiracetam 250 Mg Tablet) 1,000 mg PO BID [facility] Last Admin: 05/22/21 09:10 Dose: 1,000 mg Documented by: Lidocaine (Lidocaine Patch 5%) 1 patch TOP DAILY PRN PRN Reason: PAIN Last Admin: 05/21/21 11:13 Dose: 1 patch Documented by: Lisinopril (Lisinopril 20 Mg Tablet) 10 mg PO DAILY [facility] Last Admin: 05/22/21 09:10 Dose: 10 mg Documented by: Magnesium Oxide (Magnesium Oxide 400 Mg Tablet) 400 mg PO DAILYWM [facility] Last Admin: 05/22/21 09:10 Dose: 400 mg Documented by: Multi-Ingredient Ointment (Zinc Oxide 20% Oint 30 Gm Tube) 1 applic TOP PRN PRN PRN Reason: Skin Care Multivitamins/Minerals (Multivitamin W/Minerals Tablet) 1 tab PO DAILYWM [facility] Last Admin: 05/22/21 09:10 Dose: 1 tab Documented by: Ondansetron HCl (Ondansetron 4 Mg/2 Ml Vial) 4 mg IVP Q6HR PRN PRN Reason: Nausea / Vomiting Last Admin: 05/14/21 09:43 Dose: 4 mg Documented by: Oxcarbazepine (Oxcarbazepine 150 Mg Tablet) 600 mg PO BID [facility] Last Admin: 05/22/21 09:10 Dose: 600 mg Documented by: Polyethylene Glycol (Polyethylene Glycol 3350 17 Gm Packet) 17 gm PO DAILY [facility] Last Admin: 05/22/21 09:11 Dose: 17 gm Documented by: Potassium Chloride (Potassium Chloride 10 Meq Capsule) 10 meq PO DAILYWM [facility] Last Admin: 05/22/21 09:10 Dose: 10 meq Documented by: Senna (Senna 8.6 Mg Tablet) 8.6 - 17.2 mg PO DAILY [facility] Last Admin: 05/22/21 09:09 Dose: 8.6 mg Documented by: Sodium Chloride (Sodium Chloride Flush 0.9% 10 Ml Syringe) 10 ml IVP PRN PRN PRN Reason: NEEDED PER PROVIDER ORDERS Last Admin: 05/18/21 21:55 Dose: 10 ml Documented by: Sodium Chloride (Sodium Chloride Flush 0.9% 10 Ml Syringe) 10 ml IVP 0100,0900,1700 [facility] Last Admin: 05/22/21 09:15 Dose: 10 ml Documented by: Tamsulosin HCl (Tamsulosin 0.4 Mg Capsule) 0.4 mg PO DAILY [facility] Last Admin: 05/22/21 09:11 Dose: 0.4 mg Documented by: Throat Lozenges (Benzocaine/Menthol Lozenge) 1 lozenge MM Q2HR PRN PRN Reason: Throat pain Last Admin: 05/22/21 09:10 Dose: 1 lozenge Documented by: Witch Ivone/Glycerin (Witch Ivone/Glycerin 1 Pad) 1 pad TOP PRN PRN PRN Reason: ITCHING Last Admin: 05/21/21 23:01 Dose: 1 pad Documented by: Apixaban [Eliquis] 1 tab PO DAILY 04/13/21 Finasteride [Proscar] 5 mg PO DAILY 04/13/21 Lisinopril [Zestril] 20 mg PO DAILY 04/13/21 Tamsulosin [Flomax] 0.4 mg PO DAILY 04/13/21 Objective - Vital Signs/Intake & Output Reviewed Vital Signs: Yes Vital Signs: Vital Signs x48h Temp Pulse Resp BP Pulse Ox 05/22/21 07:44 36.4 C L 62 18 133/65 H 96 Intake & Output: Intake & Output 05/19/21 05/20/21 05/21/21 05/22/21 23:59 23:59 23:59 23:59 Intake Total 751 509 5391 644 Output Total 575 1425 875 625 Balance 371 -729 711 19 - Objective General Appearance: positive: No acute distress, Alert, Other (watching TV and comfortable in his recliner. Very cheerful, cooperative elderly white male with 68 kg weight and 5'8".) Eyes Bilateral: positive: PERRL, EOMI ENT: positive: No signs of dehydration Neck: positive: No JVD. negative: Stiff neck Respiratory: positive: No respiratory distress. negative: Wheezes, Rales, Rhonchi Cardiovascular: positive: Regular rate & rhythm, Systolic murmur. negative: Gallop/S4, Friction rub Abdomen: positive: Non-tender, No organomegaly, Nml bowel sounds, No distention Skin: positive: No rash, Dry Extremities: positive: Full ROM, No pedal edema Neurologic/Psychiatric: positive: Disoriented to time. negative: CN's nml (2- 12) (a left facial droop that is subtle and manifested as slight loss of naso labial fold), Motor nml (very slight left body residual weakness that is his baseline) - Lab Results Fish Bones: 05/18/21 06:57 05/18/21 06:57 ABX Reporting Has patient been on IV antibiotics over the past 48 hours?: No Assessment/Plan - Problem List (1) Neck pain Impression: resolved. He had musculoskeletal neck pain earlier this admission then severe neck pain recurred twice 05/20 and the Hospitalist tried to perform neck massage. Tylenol and Motrin did not help, Flexeril was tried too. Finally he got Dilaudid once with good effect and none used then. On pain meds (oxycodone) and Flexeril if needed and are po for SNF use. He is without symptoms for now so I will dc the oxy and the dilaudid. Continue on Lidocaine patch to put on his neck. He is medically cleared for discharge. (2) Seizure as late effect of cerebrovascular accident (CVA) Assessment/Plan: This was the reason for admission (then he had several different complications). Stabilized but gets occais L arm shaking and has L sided neglect. His last gran mal was on admission. Has occ jacksonia L arm twitch and he is closely followed by the [facility] Epilepsy clinic. We will continue the current dose of Trileptal and Keppra. At this point he is medically cleared for discharge. He was evaluated by physical therapy and SNF is recommended. SW is working on getting him placement. 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 MRI showed no evidence of acute stroke. At this point he is medically cleared for discharge. He was evaluated by physical therapy and SNF is recommended. (4) Afib Impression: He remains rate controlled on carvedilol. We will continue Eliquis. (5) Cardiomyopathy Impression: He has a history of heart failure with reduced ejection fraction but during this admission an Echo showed his EF is preserved. Labs were done today (he has had none in 6 days) and showed stable electrolytes and only mild dehydration (pre-renal azotemia), but he is not getting a diuretic, and suspect it is from his choosy nature to foods and drinks. We will continue carvedilol and lisinopril. (6) BPH (benign prostatic hyperplasia) Impression: Continue with Flomax, finasteride and now a chronic Rodriguez catheter. (7) UTI (urinary tract infection) Impression: Resolved. He completed treatment with ciprofloxacin. (8) Delirium Impression: Resolved. He still at risk for sundowning but he has been doing well each night. Continue to limit sedatives. (9) Chest pain Impression: Resolved. His EKG did not suggest ischemia. Troponins were within normal limits. He has not had return of this chest pain. We will continue to monitor. (10) Back pain Impression: This was musculoskeletal and has resolved. We will continue with lidocaine patch and Tylenol as needed. Qualifiers: Back pain location: low back pain Chronicity: acute Back pain laterality: left (11) Constipation Assessment/Plan: Resolved; pt had a large BM
[2021-05-22] MEDS: ATORVASTATIN 40 MG TABLET PO SCH (20:27)
[2021-05-23] MEDS: levETIRAcetam 250 MG TABLET PO SCH ×2 (11:06→20:42)
[2021-05-23] MEDS: MULTIVITAMIN W/MINERALS TABLET PO SCH (11:09)
[2021-05-23] MEDS: APIXABAN 5 MG TABLET PO SCH ×2 (11:09→20:41)
[2021-05-23] MEDS: TAMSULOSIN 0.4 MG CAPSULE PO SCH (11:24)
[2021-05-23] MEDS: carvediloL 3.125 MG TABLET PO SCH ×2 (11:24→20:42)
[2021-05-23] MEDS: lisinopriL 20 MG TABLET PO SCH (11:25)
[2021-05-23] MEDS: SENNA 8.6 MG TABLET PO SCH (11:26)
[2021-05-23] MEDS: FINASTERIDE 5 MG TABLET PO SCH ×2 (11:26→20:42)
[2021-05-23] MEDS: POTASSIUM CHLORIDE 10 MEQ CAPSULE PO SCH (11:27)
[2021-05-23] MEDS: OXcarbazepine 150 MG TABLET PO SCH ×2 (11:27→20:42)
[2021-05-23] MEDS: MAGNESIUM OXIDE 400 MG TABLET PO SCH (11:33)
[2021-05-23] MEDS: DOCUSATE SODIUM 250 MG CAPSULE PO SCH (12:03)
[2021-05-23] MEDS: polyethylene glycoL 3350 17 GM PACKET PO SCH (12:04)
--- NOTE | 2021-05-23 14:42 | PROVIDER PROGRESS NOTE ---
Subjective - Prog Note Date Prog Note Date: 05/23/21 Prog Note Time: 14:39 - Subjective Pt reports feeling: Improved Subjective: He is doing well. No significant pain. Eating his meals. Watching TV. Cheerful, cooperative. The nurses state that they are going to miss him. He has been so different since his delirium resolved and he is a very charming man. The senior care who is reviewing his case for acceptance was worried about the Dilaudid and oxycodone that was used for his neck pain. That was discontinued yesterday. They were worried about his seizures. But I have reassured them in a note that he has a regular neurologist that sees them. They were also worried about home use of cannabis. Social work is spoken to the family and the family states that they have no intention of bring him any cannabis to the skilled rsing facility. Otherwise no new complaints. Doing well. Current Medications - Current Medications Current Medications: Active Medications Acetaminophen (Acetaminophen 500 Mg Tablet) 1,000 mg PO Q6H PRN PRN Reason: Pain or Fever > 38C (100.4F) Last Admin: 05/22/21 09:09 Dose: 1,000 mg Documented by: Apixaban (Apixaban 5 Mg Tablet) 5 mg PO BID [facility] Last Admin: 05/23/21 11:09 Dose: 5 mg Documented by: Atorvastatin Calcium (Atorvastatin 40 Mg Tablet) 40 mg PO QPM [facility] Last Admin: 05/22/21 20:27 Dose: 40 mg Documented by: Carvedilol (Carvedilol 3.125 Mg Tablet) 3.125 mg PO BID [facility] Last Admin: 05/23/21 11:24 Dose: 3.125 mg Documented by: Cyclobenzaprine HCl (Cyclobenzaprine 10 Mg Tablet) 10 mg PO TID PRN PRN Reason: Spasms Last Admin: 05/22/21 00:57 Dose: 10 mg Documented by: Docusate Sodium (Docusate Sodium 250 Mg Capsule) 250 - 500 mg PO DAILY [facility] Last Admin: 05/23/21 12:03 Dose: 250 mg Documented by: Finasteride (Finasteride 5 Mg Tablet) 5 mg PO BID [facility] Last Admin: 05/23/21 11:26 Dose: 5 mg Documented by: Ibuprofen (Ibuprofen 600 Mg Tablet) 600 mg PO Q6HR PRN PRN Reason: PAIN Last Admin: 12/08/21 09:09 Dose: 600 mg Documented by: Levetiracetam (Levetiracetam 250 Mg Tablet) 1,000 mg PO BID [facility] Last Admin: 05/23/21 11:06 Dose: 1,000 mg Documented by: Lidocaine (Lidocaine Patch 5%) 1 patch TOP DAILY PRN PRN Reason: PAIN Last Admin: 05/21/21 11:13 Dose: 1 patch Documented by: Lisinopril (Lisinopril 20 Mg Tablet) 10 mg PO DAILY [facility] Last Admin: 05/23/21 11:25 Dose: 10 mg Documented by: Magnesium Oxide (Magnesium Oxide 400 Mg Tablet) 400 mg PO DAILYWM [facility] Last Admin: 05/23/21 11:33 Dose: 400 mg Documented by: Multi-Ingredient Ointment (Zinc Oxide 20% Oint 30 Gm Tube) 1 applic TOP PRN PRN PRN Reason: Skin Care Multivitamins/Minerals (Multivitamin W/Minerals Tablet) 1 tab PO DAILYWM [facility] Last Admin: 05/23/21 11:09 Dose: 1 tab Documented by: Ondansetron HCl (Ondansetron 4 Mg/2 Ml Vial) 4 mg IVP Q6HR PRN PRN Reason: Nausea / Vomiting Last Admin: 05/14/21 09:43 Dose: 4 mg Documented by: Oxcarbazepine (Oxcarbazepine 150 Mg Tablet) 600 mg PO BID [facility] Last Admin: 05/23/21 11:27 Dose: 600 mg Documented by: Polyethylene Glycol (Polyethylene Glycol 3350 17 Gm Packet) 17 gm PO DAILY [facility] Last Admin: 05/23/21 12:04 Dose: Not Given Documented by: Potassium Chloride (Potassium Chloride 10 Meq Capsule) 10 meq PO DAILYWM [facility] Last Admin: 05/23/21 11:27 Dose: 10 meq Documented by: Senna (Senna 8.6 Mg Tablet) 8.6 - 17.2 mg PO DAILY [facility] Last Admin: 05/23/21 11:26 Dose: 8.6 mg Documented by: Sodium Chloride (Sodium Chloride Flush 0.9% 10 Ml Syringe) 10 ml IVP PRN PRN PRN Reason: NEEDED PER PROVIDER ORDERS Last Admin: 05/18/21 21:55 Dose: 10 ml Documented by: Sodium Chloride (Sodium Chloride Flush 0.9% 10 Ml Syringe) 10 ml IVP 0100,0900,1700 [facility] Last Admin: 05/22/21 23:57 Dose: 10 ml Documented by: Tamsulosin HCl (Tamsulosin 0.4 Mg Capsule) 0.4 mg PO DAILY [facility] Last Admin: 05/23/21 11:24 Dose: 0.4 mg Documented by: Throat Lozenges (Benzocaine/Menthol Lozenge) 1 lozenge MM Q2HR PRN PRN Reason: Throat pain Last Admin: 05/22/21 09:10 Dose: 1 lozenge Documented by: Witch Ivone/Glycerin (Witch Ivone/Glycerin 1 Pad) 1 pad TOP PRN PRN PRN Reason: ITCHING Last Admin: 05/21/21 23:01 Dose: 1 pad Documented by: Apixaban [Eliquis] 1 tab PO DAILY 04/13/21 Finasteride [Proscar] 5 mg PO DAILY 04/13/21 Lisinopril [Zestril] 20 mg PO DAILY 04/13/21 Tamsulosin [Flomax] 0.4 mg PO DAILY 04/13/21 Objective - Vital Signs/Intake & Output Reviewed Vital Signs: Yes Vital Signs: Vital Signs x48h Temp Pulse Resp BP Pulse Ox 05/23/21 07:21 36.4 C L 76 18 123/71 98 Intake & Output: Intake & Output 05/20/21 05/21/21 05/22/21 05/23/21 23:59 23:59 23:59 23:59 Intake Total 730 1586 1538 400 Output Total 1425 536 465 0620 Balance -695 711 663 -650 - Objective General Appearance: positive: Alert (Watching TV. Enjoyed his breakfast. Comfortable.), Other (Elderly gentleman with developing jones. 68 kg at 5 foot 8 inches tall) Eyes Bilateral: positive: PERRL, EOMI ENT: positive: No signs of dehydration Neck: positive: No JVD. negative: Stiff neck Respiratory: positive: No respiratory distress. negative: Wheezes, Rales, Rhonchi Cardiovascular: positive: Regular rate & rhythm, No murmur, No gallop Abdomen: positive: Non-tender, No organomegaly, Nml bowel sounds, No distention Skin: positive: Warm, Dry Extremities: positive: Full ROM, No pedal edema Neurologic/Psychiatric: positive: CN's nml (2-12), Disoriented to time. negative: Motor nml (weakness, off balance, using gait belt. but able to walk to bathroom w Aide) - Lab Results Fish Bones: 05/18/21 06:57 05/18/21 06:57 Assessment/Plan - Problem List (1) Neck pain Impression: resolved. He had musculoskeletal neck pain earlier this admission then severe neck pain re curred twice 05/20 and the Hospitalist tried to perform neck massage. Tylenol and Motrin did not help, Flexeril was tried too. Finally he got Dilaudid once with good effect and none used then. On pain meds (oxycodone) and Flexeril if needed and are po for SNF use. He is without symptoms for now so I dc'd the oxy and the dilaudid 05/22 Continue on Lidocaine patch to put on his neck. He is medically cleared for discharge. (2) Seizure as late effect of cerebrovascular accident (CVA) Assessment/Plan: This was the reason for admission (then he had several different complications). Stabilized but gets occais L arm shaking and has L sided neglect. His last gran mal was on admission. Has occ jacksonia L arm twitch and he is closely followed by the [facility] Epilepsy clinic. We will continue the current dose of Trileptal and Keppra. At this point he is medically cleared for discharge. He was evaluated by physical therapy and SNF is recommended. SW is working on getting him placement. 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 MRI showed no evidence of acute stroke. At this point he is medically cleared for discharge. He was evaluated by physical therapy and SNF is recommended. (4) Afib Impression: He remains rate controlled on carvedilol. We will continue Eliquis. (5) Cardiomyopathy Impression: He has a history of heart failure with reduced ejection fraction but during this admission an Echo showed his EF is preserved. Labs were done today (he has had none in 6 days) and showed stable electrolytes and only mild dehydration (pre-renal azotemia), but he is not getting a diuretic, and suspect it is from his choosy nature to foods and drinks. We will continue carvedilol and lisinopril. (6) BPH (benign prostatic hyperplasia) Impression: Continue with Flomax, finasteride and now a chronic Rodriguez catheter. (7) UTI (urinary tract infection) Impression: Resolved. He completed treatment with ciprofloxacin. (8) Delirium Impression: Resolved. He still at risk for sundowning but he has been doing well each night. Continue to limit sedatives. (9) Chest pain Impression: Resolved. His EKG did not suggest ischemia. Troponins were within normal limits. He has not had return of this chest pain. We will continue to monitor. (10) Back pain Impression: This was musculoskeletal and has resolved. We will continue with lidocaine patch and Tylenol as needed. Qualifiers: Back pain location: low back pain Chronicity: acute Back pain laterality: left (11) Constipation Assessment/Plan: Resolved; pt had a large BM
[2021-05-23] MEDS: SODIUM CHLORIDE FLUSH 0.9% 10 ML SYRINGE IVP SCH ×2 (18:25→20:42)
[2021-05-23] MEDS: ATORVASTATIN 40 MG TABLET PO SCH (20:41)
[2021-05-24] MEDS: SODIUM CHLORIDE FLUSH 0.9% 10 ML SYRINGE IVP SCH ×3 (00:06→17:12)
[2021-05-24 09:12] LABS: BASOPHILS # (AUTO) 0.1 10^3/uL (0.0-0.1); BASOPHILS % (AUTO) 1.3 %; EOSINOPHILS # (AUTO) 0.1 10^3/uL (0.0-0.7); EOSINOPHILS % (AUTO) 1.3 %; HCT - HEMATOCRIT 29.5 % (42.0-52.0); HGB - HEMOGLOBIN 9.9 g/dL (14.0-18.0); LYMPHOCYTES # (AUTO) 1.3 10^3/uL (1.5-3.5); LYMPHOCYTES % (AUTO) 17.7 %; MEAN CORPUSCULAR HGB CONC 33.6 g/dL (32.0-36.0); MEAN CORPUSCULAR VOLUME 86.5 fL (80.0-94.0); MEAN PLATELET VOLUME 8.9 fL (7.4-11.4); MONOCYTES # (AUTO) 0.5 10^3/uL (0.0-1.0); MONOCYTES % (AUTO) 6.8 %; NEUTROPHILS # (AUTO) 5.5 10^3/uL (1.5-6.6); NEUTROPHILS % (AUTO) 72.6 %; PLT - PLATELET COUNT 265 10^3/uL (130-450); RED BLOOD COUNT 3.41 10^6/uL (4.70-6.10); RED CELL DISTRIBUTION WIDTH 13.6 % (12.0-15.0); WHITE BLOOD COUNT 7.5 x10^3/uL (4.8-10.8)
[2021-05-24] MEDS: MULTIVITAMIN W/MINERALS TABLET PO SCH (09:17)
[2021-05-24] MEDS: MAGNESIUM OXIDE 400 MG TABLET PO SCH (09:18)
[2021-05-24] MEDS: POTASSIUM CHLORIDE 10 MEQ CAPSULE PO SCH (09:18)
--- NOTE | 2021-05-24 09:25 | XRAY Report ---
PROCEDURE: Abdomen 1 View X-Ray INDICATIONS: new abd pain, confusion TECHNIQUE: 1 view of the abdomen were acquired. COMPARISON: None FINDINGS: Surgical changes and devices: None. Bowel: No pneumoperitoneum. The bowel gas pattern is normal. Soft tissues: No masses; visualized solid organ contours appear normal in size. There are 2 stones p rojecting over the expected location of the left kidney, both measuring 6 mm. Bones: No suspicious bony abnormalities. Degenerative disc and endplate changes are present in the lumbar spine, particularly at the L3-4 level. IMPRESSION: 1. Nonspecific, nonobstructive bowel gas pattern. 2. Probable left renal calcifications. 3. Lumbar degenerative changes. Reviewed by: Martina Thomason MD on 05/24/2021 9:23 AM PST Approved by: Martina Thomason MD on 05/24/2021 9:23 AM PST Station ID: [id number]
[2021-05-24 09:27] LABS: ALBUMIN 3.4 g/dL (3.2-5.5); ALBUMIN/GLOBULIN RATIO 1.3 (1.0-2.2); BILIRUBIN,TOTAL 0.9 mg/dL (0.2-1.0); CALCIUM 8.7 mg/dL (8.5-10.3); CREATININE 0.8 mg/dL (0.6-1.2); POTASSIUM 4.2 mmol/L (3.5-5.0)
[2021-05-24 09:31] LABS: BILIRUBIN,URINE NEGATIVE (NEGATIVE); GLUCOSE, URINE (UA) NEGATIVE (NEGATIVE); KETONES,URINE (UA) NEGATIVE (NEGATIVE); LEUKOCYTE ESTERASE, URINE NEGATIVE (NEGATIVE); NITRITE,URINE POSITIVE (NEGATIVE); OCCULT BLOOD,URINE SMALL (NEGATIVE); PH,URINE 7.5 PH (5.0-7.5); PROTEIN,URINE NEGATIVE (NEGATIVE); UROBILINOGEN,URINE 0.2 (NORMAL) E.U./dL (NORMAL)
[2021-05-24 10:02] LABS: BACTERIA,URINE None Seen /HPF (None Seen); CLARITY,URINE CLEAR (CLEAR); RBC,URINE 0-5 /HPF (0-5); SQUAMOUS EPITHELIAL CELL,UR RARE Squamous (<= Few); WBC CLUMPS,URINE NONE SEEN; WBC,URINE 0-3 /HPF (0-3)
[2021-05-24] MEDS: polyethylene glycoL 3350 17 GM PACKET PO SCH (10:02)
[2021-05-24] MEDS: DOCUSATE SODIUM 250 MG CAPSULE PO SCH (10:03)
[2021-05-24] MEDS: SENNA 8.6 MG TABLET PO SCH (10:04)
[2021-05-24] MEDS: carvediloL 3.125 MG TABLET PO SCH ×2 (10:04→20:48)
[2021-05-24] MEDS: APIXABAN 5 MG TABLET PO SCH ×2 (10:05→20:48)
[2021-05-24] MEDS: FINASTERIDE 5 MG TABLET PO SCH ×2 (10:05→20:48)
[2021-05-24] MEDS: levETIRAcetam 250 MG TABLET PO SCH ×2 (10:06→20:48)
[2021-05-24] MEDS: TAMSULOSIN 0.4 MG CAPSULE PO SCH (10:06)
[2021-05-24] MEDS: OXcarbazepine 150 MG TABLET PO SCH ×2 (10:08→20:48)
[2021-05-24] MEDS: lisinopriL 20 MG TABLET PO SCH (10:11)
[2021-05-24] MEDS ORDERED: SODIUM CHLORIDE 0.9% 500 ML IV ONE (11:36)
--- NOTE | 2021-05-24 15:15 | PROVIDER PROGRESS NOTE ---
Subjective - Prog Note Date Prog Note Date: 05/24/21 Prog Note Time: 15:12 - Subjective Subjective: This morning he had severe nausea. There is a lot of emotional distress associated with it and became tremulous, moaning. Saying that he needed something to make this go away. By late morning it had resolved, tremulous resolved. And he became quiet, calm, and very lucid. At this point he has been forgetful elderly gentleman but this afternoon he was quite pointed. He states that he no longer wants to be in the hospital, no longer wants treatment for his disease process. He would like to transition to comfort measures. He has not spoken to his or daughter and they came in this afternoon. Please see dictated advance care planning conversation note. He denies chest pain, palpitations, shortness of breath. This morning he had some mild abdominal pain with the nausea and that has resolved. There is no coughing, chest congestion. No specific joint pain. Neck pain. Labs showed mild hyponatremia of 127. But white cell count was normal. Plain view of the abdomen had nonspecific findings. Normal gas pattern. Nothing acute. By this afternoon all of his discomfort had resolved and he was back to baseline. Current Medications - Current Medications Current Medications: Active Medications Acetaminophen (Acetaminophen 500 Mg Tablet) 1,000 mg PO Q6H PRN PRN Reason: Pain or Fever > 38C (100.4F) Last Admin: 05/22/21 09:09 Dose: 1,000 mg Documented by: Apixaban (Apixaban 5 Mg Tablet) 5 mg PO BID [facility] Last Admin: 05/24/21 10:05 Dose: 5 mg Documented by: Atorvastatin Calcium (Atorvastatin 40 Mg Tablet) 40 mg PO QPM [facility] Last Admin: 05/23/21 20:41 Dose: 40 mg Documented by: Carvedilol (Carvedilol 3.125 Mg Tablet) 3.125 mg PO BID [facility] Last Admin: 05/24/21 10:04 Dose: 3.125 mg Documented by: Cyclobenzaprine HCl (Cyclobenzaprine 10 Mg Tablet) 10 mg PO TID PRN PRN Reason: Spasms Last Admin: 05/22/21 00:57 Dose: 10 mg Documented by: Docusate Sodium (Docusate Sodium 250 Mg Capsule) 250 - 500 mg PO DAILY [facility] Last Admin: 05/24/21 10:03 Dose: 250 mg Documented by: Finasteride (Finasteride 5 Mg Tablet) 5 mg PO BID [facility] Last Admin: 05/24/21 10:05 Dose: 5 mg Documented by: Ibuprofen (Ibuprofen 600 Mg Tablet) 600 mg PO Q6HR PRN PRN Reason: PAIN Last Admin: 05/22/21 09:09 Dose: 600 mg Documented by: Levetiracetam (Levetiracetam 250 Mg Tablet) 1,000 mg PO BID [facility] Last Admin: 05/24/21 10:06 Dose: 1,000 mg Documented by: Lidocaine (Lidocaine Patch 5%) 1 patch TOP DAILY PRN PRN Reason: PAIN Last Admin: 05/21/21 11:13 Dose: 1 patch Documented by: Lisinopril (Lisinopril 20 Mg Tablet) 10 mg PO DAILY [facility] Last Admin: 05/24/21 10:11 Dose: 10 mg Documented by: Magnesium Oxide (Magnesium Oxide 400 Mg Tablet) 400 mg PO DAILYWM [facility] Last Admin: 05/24/21 09:18 Dose: 400 mg Documented by: Multi-Ingredient Ointment (Zinc Oxide 20% Oint 30 Gm Tube) 1 applic TOP PRN PRN PRN Reason: Skin Care Multivitamins/Minerals (Multivitamin W/Minerals Tablet) 1 tab PO DAILYWM [facility] Last Admin: 05/24/21 09:17 Dose: 1 tab Documented by: Ondansetron HCl (Ondansetron 4 Mg/2 Ml Vial) 4 mg IVP Q6HR PRN PRN Reason: Nausea / Vomiting Last Admin: 05/14/21 09:43 Dose: 4 mg Documented by: Oxcarbazepine (Oxcarbazepine 150 Mg Tablet) 600 mg PO BID [facility] Last Admin: 05/24/21 10:08 Dose: 600 mg Documented by: Polyethylene Glycol (Polyethylene Glycol 3350 17 Gm Packet) 17 gm PO DAILY [facility] Last Admin: 05/24/21 10:02 Dose: 17 gm Documented by: Potassium Chloride (Potassium Chloride 10 Meq Capsule) 10 meq PO DAILYWM [facility] Last Admin: 05/24/21 09:18 Dose: 10 meq Documented by: Senna (Senna 8.6 Mg Tablet) 8.6 - 17.2 mg PO DAILY [facility] Last Admin: 05/24/21 10:04 Dose: 8.6 mg Documented by: Sodium Chloride (Sodium Chloride Flush 0.9% 10 Ml Syringe) 10 ml IVP PRN PRN PRN Reason: NEEDED PER PROVIDER ORDERS Last Admin: 05/18/21 21:55 Dose: 10 ml Documented by: Sodium Chloride (Sodium Chloride Flush 0.9% 10 Ml Syringe) 10 ml IVP 0100,0900,1700 [facility] Last Admin: 05/24/21 08:10 Dose: 10 ml Documented by: Tamsulosin HCl (Tamsulosin 0.4 Mg Capsule) 0.4 mg PO DAILY [facility] Last Admin: 05/24/21 10:06 Dose: 0.4 mg Documented by: Throat Lozenges (Benzocaine/Menthol Lozenge) 1 lozenge MM Q2HR PRN PRN Reason: Throat pain Last Admin: 05/22/21 09:10 Dose: 1 lozenge Documented by: Witch Ivone/Glycerin (Witch Ivone/Glycerin 1 Pad) 1 pad TOP PRN PRN PRN Reason: ITCHING Last Admin: 05/21/21 23:01 Dose: 1 pad Documented by: Apixaban [Eliquis] 1 tab PO DAILY 04/13/21 Finasteride [Proscar] 5 mg PO DAILY 04/13/21 Lisinopril [Zestril] 20 mg PO DAILY 04/13/21 Tamsulosin [Flomax] 0.4 mg PO DAILY 04/13/21 Objective - Vital Signs/Intake & Output Reviewed Vital Signs: Yes Vital Signs: Vital Signs x48h Temp Pulse Resp BP BP Pulse Ox 05/24/21 14:16 158/74 H 05/24/21 11:55 36.3 C L 76 20 157/54 H 98 05/24/21 07:45 36.3 C L 68 22 112/65 98 Intake & Output: Intake & Output 05/21/21 05/22/21 05/23/21 05/24/21 23:59 23:59 23:59 23:59 Intake Total 1586 1538 622 740 Output Total 239 795 7641 800 Balance 711 663 -903 -60 - Objective General Appearance: positive: Alert, Other (Lanky, cachectic, elderly gentleman, with a jones that is growing in, comfortable at this time in the afternoon.) Eyes Bilateral: positive: PERRL, EOMI ENT: positive: No signs of dehydration Neck: positive: No JVD. negative: Stiff neck Respiratory: positive: No respiratory distress. negative: Wheezes, Rales, Rhonchi Cardiovascular: positive: Regular rate & rhythm, Systolic murmur. negative: Gallop/S4, Friction rub Abdomen: positive: Non-tender, No organomegaly, Nml bowel sounds, No distention Skin: positive: Warm, Dry Extremities: positive: Full ROM, No pedal edema Neurologic/Psychiatric: positive: CN's nml (2-12), Disoriented to time. negative: Motor nml (Slight loss of nasolabial fold on the left face, slight left body weakness comparison to the right.) - Lab Results Fish Bones: 05/24/21 09:00 05/24/21 09:00 Other Labs: Lab Results x24hrs 05/24/21 05/24/21 05/24/21 Range/Units 09:13 09:00 09:00 WBC 7.5 (4.8-10.8) x10^3/uL RBC 3.41 L (4.70-6.10) 10^6/uL Hgb 9.9 L (14.0-18.0) g/dL Hct 29.5 L (42.0-52.0) % MCV 86.5 (80.0-94.0) fL MCH 29.0 (27.0-31.0) pg MCHC 33.6 (32.0-36.0) g/dL RDW 13.6 (12.0-15.0) % Plt Count 265 (130-450) 10^3/uL MPV 8.9 (7.4-11.4) fL Neut # (Auto) 5.5 (1.5-6.6) 10^3/uL Lymph # (Auto) 1.3 L (1.5-3.5) 10^3/uL Mccone # (Auto) 0.5 (0.0-1.0) 10^3/uL Eos # (Auto) 0.1 (0.0-0.7) 10^3/uL Baso # (Auto) 0.1 (0.0-0.1) 10^3/uL Absolute Nucleated RBC 0.00 x10^3/uL Nucleated RBC % 0.0 /100WBC Sodium 127 L (135-145) mmol/L Potassium 4.2 (3.5-5.0) mmol/L Chloride 96 L (101-111) mmol/L Carbon Dioxide 24 (21-32) mmol/L Anion Gap 7.0 (6-13) BUN 19 (6-20) mg/dL Creatinine 0.8 (0.6-1.2) mg/dL Estimated GFR (MDRD) 93 (>89) Glucose 99 (70-100) mg/dL Calcium 8.7 (8.5-10.3) mg/dL Total Bilirubin 0.9 (0.2-1.0) mg/dL AST 17 (10-42) IU/L ALT 17 (10-60) IU/L Alkaline Phosphatase 98 (42-121) IU/L Total Protein 6.0 L (6.7-8.2) g/dL Albumin 3.4 (3.2-5.5) g/dL Globulin 2.6 (2.1-4.2) g/dL Albumin/Globulin Ratio 1.3 (1.0-2.2) Urine Color YELLOW Urine Clarity CLEAR (CLEAR) Urine pH 7.5 (5.0-7.5) PH Ur Specific [place] 1.020 (1.002-1.030) Urine Protein NEGATIVE (NEGATIVE) mg/dL Urine Glucose (UA) NEGATIVE (NEGATIVE) mg/dL Urine Ketones NEGATIVE (NEGATIVE) mg/dL Urine Occult Blood SMALL H (NEGATIVE) Urine Nitrite POSITIVE H (NEGATIVE) Urine Bilirubin NEGATIVE (NEGATIVE) Urine Urobilinogen 0.2 (NORMAL) (NORMAL) E.U./dL Ur Leukocyte Esterase NEGATIVE (NEGATIVE) Urine RBC 0-5 (0-5) /HPF Urine WBC 0-3 (0-3) /HPF Urine WBC Clumps NONE SEEN Ur Squamous Epith Cells RARE Squamous (<= Few) Urine Bacteria None Seen (None Seen) /HPF Urine Culture Comments INDICATED Assessment/Plan - Problem List (1) Neck pain Impression: resolved. He had musculoskeletal neck pain earlier this admission then severe neck pain recurred twice 05/20 and the Hospitalist tried to perform neck massage. Tylenol and Motrin did not help, Flexeril was tried too. Finally he got Dilaudid once with good effect and none used then. On pain meds (oxycodone) and Flexeril if needed and are po for SNF use. He is wi thout symptoms for now so I dc'd the oxy and the dilaudid 05/22 Continue on Lidocaine patch to put on his neck. He is medically cleared for discharge. (2) Seizure as late effect of cerebrovascular accident (CVA) Assessment/Plan: This was the reason for admission (then he had several different complications). Stabilized but gets occais L arm shaking and has L sided neglect. His last gran mal was on admission. Has occ jacksonia L arm twitch and he is closely followed by the [facility] Epilepsy clinic. We will continue the current dose of Trileptal and Keppra. Vimpat was recommended before Trileptal but he can't afford it. At this point he is medically cleared for discharge. He was evaluated by physical therapy and SNF is recommended. SW is working on getting him placement. 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 MRI showed no evidence of acute stroke. At this point he is medically cleared for discharge. He was evaluated by physical therapy and SNF is recommended. (4) Afib Impression: He remains rate controlled on carvedilol. We will continue Eliquis. (5) Cardiomyopathy Impression: He has a history of heart failure with reduced ejection fraction but during this admission an Echo showed his EF is preserved. Labs were done today (he has had none in 6 days) and showed stable electrolytes and only mild dehydration (pre-renal azotemia), but he is not getting a diuretic, and suspect it is from his choosy nature to foods and drinks. We will continue carvedilol and lisinopril. (6) BPH (benign prostatic hyperplasia) Impression: Continue with Flomax, finasteride and now a chronic Rodriguez catheter. (7) UTI (urinary tract infection) Impression: Resolved. He completed treatment with ciprofloxacin. (8) Delirium Impression: Resolved. He still at risk for sundowning but he has been doing well each night. Continue to limit sedatives. (9) Chest pain Impression: Resolved. His EKG did not suggest ischemia. Troponins were within normal limits. He has not had return of this chest pain. We will continue to monitor. (10) Back pain Impression: This was musculoskeletal and has resolved. We will continue with lidocaine patch and Tylenol as needed. Qualifiers: Back pain location: low back pain Chronicity: acute Back pain laterality: left (11) Constipation Assessment/Plan: Resolved; pt had a large BM
--- NOTE | 2021-05-24 15:30 | ADVANCE CARE PLANNING NOTE ---
Advance Care Planning - Planning Encounter Date: 05/24/21 Time: 13:00 Purpose: transition to focus on comfort measures Parties in Attendance: , daughter, Quality Assurance Clerk Hyun Pedroza Decisional Capacity of the Patient: He is exceedingly forgetful. He will not remember within 2 to 3 minutes what was discussed. As such is invoking DURABLE POWER OF ICE CREAM TRUCK DRIVER and speaks for him. Daughter endorses this. - Diagnosis for Encounter (1) Seizure as late effect of cerebrovascular accident (CVA) Summary: 80-year-old white male with independent living status, living with his but then had parietal stroke in October 2019. Subsequent left-sided focal seizures developed. Then status epilepticus in May 2020. Compliant with medication but presented with left arm twitching on day of admission that went on to become generalized tonic-clonic seizure that was quite severe. Obtunded in the emergency room. CT with old stroke in the right parietal region. Loaded with Keppra. Continues to have marked confusion, pulling at his Rodriguez, picking at his skin, and agitated. Placed in observation status thinking that he would recover from Napoleon's paralysis. However states that the last time he did this in May 2020, it took him 3 months to recover. His seizures are now controlled. He gets occasional left arm twitching. Since the beginning of his hospitalization to now, the patient has rebounded substantially. While he is still forgetful, and perseverates, and loops around the topic over and over again, he is so much better than before. No longer delirious, no longer combative, very charming elderly gentleman. - Encounter Subjective/Patient's Story: and daughter reiterate the history that I obtained with previous advance care planning conversation April 25. He is from the [facility]. 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 Always worked for himself. An exceedingly charming charismatic gentleman. Watching him deteriorate since his stroke in October 2019 has been very distressing to them. The subsequent seizures have diminished his functionality even further. For a while they were getting hope because he was finally recovering and getting to be "back to normal" by fall 2020. Daughter even comments that he was "the data I always knew" by the fall 2020. Then this current seizure status started again and he is back to being confused, forgetful and needing a lot of help. With this hospitalization he has had a lot of ups and downs. He was initially a full code resuscitative status but after discussing with his , she transitioned him to DO NOT RESUSCITATE status April 25. The family is come to realize that he cannot go home unless he is completely independent with regards to walking and going to the bathroom. If he cannot walk to the bathroom, get off the toilet, and walk back to a chair, he cannot come home because his cannot take care of him. They also do not have the finances to place him in a retirement facility permanently. They are hoping that he will get enough rehab to be strong enough to just transition to a commode and then go home. After today's statement, on the patient's part, that he no longer wants hospitalizations, CAT scans, blood draws,, etc. they came in to talk to him. He tells him that he is ready to pass away. He describes a good life. Describes loving them very much. But he does not want to live his life this way if this is what it means to still stay alive. As such, the focus is to get him through rehabilitation for strength. Once he is done with rehabilitation they hope to take him home. We have already asked for palliative care consultation. He will be followed by palliative care and then transition to hospice when appropriate. For today, they wanted to make sure this was all noted in the chart and that we were "all on the same page". Objective/Medical Story: He is an elderly gentleman who is not felt to have dementia. While he may be forgetful, he was independent with activities of daily living, and enjoyed life. His states that she and he would have great conversations about politics, the news, their kids. This current status of confusion, memory loss is new for him. 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 MRI does not confirm a new stroke. He has an old parietal right stroke. Diffuse changes on MRI of frontal, parietal and occipital lobes. The differential of encephalitis, Benton Gerardo, and anoxic brain injury were postulated by radiology. Putting it altogether with his clinical picture, I think he just had a prolonged seizure with diffuse MRI changes. He has a long history of benign prostatic hypertrophy and that has been complicated by retention. He has had frequent straight caths that resulted in a Rodriguez. He then pulled out the Rodriguez, traumatized his urethra and probable prostate. He then developed a UTI with an elevated white cell count, need to treat with antibiotics. Delirium was a complication. He had needed four-point restraints. He then was able to come off restraints, and delirium resolved once infection improved. Over the last 2 weeks he has been gradually improving with mentation. Eating his food. He had an episode of neck pain requiring 1 to 2 days of pain medications but those were stopped on May 22. He is working with physical therapy. Needs standby assist and is slow and shuffling. He will need to be independent with walking/walker to go home. Physical therapy feels that that is an achievable goal. Goals of Care: To be placed in a retirement facility for enough time to strengthen himself for independent mobility using a walker. From there he will return home, be seen by palliative care service, and transition to hospice when needed. He no longer wants to be hospitalized. He reiterates his wishes for DNR and his family endorses those wishes. Plan: As per goals of care. POLST form filled out. Code Status: Do Not Attempt Resuscitation Time spent on advance care plannin minutes
[2021-05-24] MEDS: [UNRECOGNIZED DRUG - OTHER] IM ONE ×2 (15:45→19:15)
[2021-05-24] MEDS ORDERED: COVID-19 VAC,AD26(JANSSEN)/PF 0.5 ML SYRINGE IM ONE (19:00)
[2021-05-24] MEDS: ATORVASTATIN 40 MG TABLET PO SCH (20:48)
[2021-05-24] MEDS: CYCLOBENZAPRINE 10 MG TABLET PO PRN (20:48)
[2021-05-25] MEDS: SODIUM CHLORIDE FLUSH 0.9% 10 ML SYRINGE IVP SCH ×3 (01:17→18:45)
[2021-05-25] MEDS: ACETAMINOPHEN 500 MG TABLET PO PRN ×2 (01:17→11:27)
--- NOTE | 2021-05-25 10:38 | PROVIDER PROGRESS NOTE ---
Subjective - Prog Note Date Prog Note Date: 05/25/21 Prog Note Time: 10:31 - Subjective Subjective: Today he continues to perseverate around 2 issues. 1 is a Rodriguez catheter. He would like it removed. To is going home. He does not except that he is going to a halfway facility and does not remember his and daughter telling him that. Otherwise there is no chest pain, palpitations. Continues to have intermittent neck pain that bothers him. Current Medications - Current Medications Current Medications: Active Medications Acetaminophen (Acetaminophen 500 Mg Tablet) 1,000 mg PO Q6H PRN PRN Reason: Pain or Fever > 38C (100.4F) Last Admin: 05/25/21 01:17 Dose: 1,000 mg Documented by: Apixaban (Apixaban 5 Mg Tablet) 5 mg PO BID [facility] Last Admin: 05/24/21 20:48 Dose: 5 mg Documented by: Atorvastatin Calcium (Atorvastatin 40 Mg Tablet) 40 mg PO QPM [facility] Last Admin: 05/24/21 20:48 Dose: 40 mg Documented by: Carvedilol (Carvedilol 3.125 Mg Tablet) 3.125 mg PO BID [facility] Last Admin: 05/24/21 20:48 Dose: 3.125 mg Documented by: Cyclobenzaprine HCl (Cyclobenzaprine 10 Mg Tablet) 10 mg PO TID PRN PRN Reason: Spasms Last Admin: 05/24/21 20:48 Dose: 10 mg Documented by: Docusate Sodium (Docusate Sodium 250 Mg Capsule) 250 - 500 mg PO DAILY [facility] Last Admin: 05/24/21 10:03 Dose: 250 mg Documented by: Finasteride (Finasteride 5 Mg Tablet) 5 mg PO BID [facility] Last Admin: 05/24/21 20:48 Dose: 5 mg Documented by: Ibuprofen (Ibuprofen 600 Mg Tablet) 600 mg PO Q6HR PRN PRN Reason: PAIN Last Admin: 05/22/21 09:09 Dose: 600 mg Documented by: Levetiracetam (Levetiracetam 250 Mg Tablet) 1,000 mg PO BID [facility] Last Admin: 05/24/21 20:48 Dose: 1,000 mg Documented by: Lidocaine (Lidocaine Patch 5%) 1 patch TOP DAILY PRN PRN Reason: PAIN Last Admin: 05/21/21 11:13 Dose: 1 patch Documented by: Lisinopril (Lisinopril 20 Mg Tablet) 10 mg PO DAILY [facility] Last Admin: 05/24/21 10:11 Dose: 10 mg Documented by: Magnesium Oxide (Magnesium Oxide 400 Mg Tablet) 400 mg PO DAILYWM [facility] Last Admin: 05/24/21 09:18 Dose: 400 mg Documented by: Multi-Ingredient Ointment (Zinc Oxide 20% Oint 30 Gm Tube) 1 applic TOP PRN PRN PRN Reason: Skin Care Multivitamins/Minerals (Multivitamin W/Minerals Tablet) 1 tab PO DAILYWM [facility] Last Admin: 05/24/21 09:17 Dose: 1 tab Documented by: Ondansetron HCl (Ondansetron 4 Mg/2 Ml Vial) 4 mg IVP Q6HR PRN PRN Reason: Nausea / Vomiting Last Admin: 05/14/21 09:43 Dose: 4 mg Documented by: Oxcarbazepine (Oxcarbazepine 150 Mg Tablet) 600 mg PO BID [facility] Last Admin: 05/24/21 20:48 Dose: 600 mg Documented by: Polyethylene Glycol (Polyethylene Glycol 3350 17 Gm Packet) 17 gm PO DAILY [facility] Last Admin: 05/24/21 10:02 Dose: 17 gm Documented by: Potassium Chloride (Potassium Chloride 10 Meq Capsule) 10 meq PO DAILYWM [facility] Last Admin: 05/24/21 09:18 Dose: 10 meq Documented by: Senna (Senna 8.6 Mg Tablet) 8.6 - 17.2 mg PO DAILY [facility] Last Admin: 05/24/21 10:04 Dose: 8.6 mg Documented by: Sodium Chloride (Sodium Chloride Flush 0.9% 10 Ml Syringe) 10 ml IVP PRN PRN PRN Reason: NEEDED PER PROVIDER ORDERS Last Admin: 05/18/21 21:55 Dose: 10 ml Documented by: Sodium Chloride (Sodium Chloride Flush 0.9% 10 Ml Syringe) 10 ml IVP 0100,0900,1700 [facility] Last Admin: 05/25/21 01:17 Dose: 10 ml Documented by: Tamsulosin HCl (Tamsulosin 0.4 Mg Capsule) 0.4 mg PO DAILY [facility] Last Admin: 05/24/21 10:06 Dose: 0.4 mg Documented by: Throat Lozenges (Benzocaine/Menthol Lozenge) 1 lozenge MM Q2HR PRN PRN Reason: Throat pain Last Admin: 05/22/21 09:10 Dose: 1 lozenge Documented by: Witch Ivone/Glycerin (Witch Ivone/Glycerin 1 Pad) 1 pad TOP PRN PRN PRN Reason: ITCHING Last Admin: 05/21/21 23:01 Dose: 1 pad Documented by: Apixaban [Eliquis] 1 tab PO DAILY 04/13/21 Finasteride [Proscar] 5 mg PO DAILY 04/13/21 Lisinopril [Zestril] 20 mg PO DAILY 04/13/21 Tamsulosin [Flomax] 0.4 mg PO DAILY 04/13/21 Objective - Vital Signs/Intake & Output Reviewed Vital Signs: Yes Vital Signs: Vital Signs x48h Temp Pulse Resp BP Pulse Ox 05/25/21 09:53 79 20 100 05/25/21 07:55 36.4 C L 68 22 119/53 L 90 L Intake & Output: Intake & Output 05/22/21 05/23/21 05/24/21 05/25/21 23:59 23:59 23:59 23:59 Intake Total 1304 912 1334 50 Output Total 875 1525 1250 475 Balance 663 -903 130 -425 - Objective General Appearance: positive: Alert, Other (In comparison to this week of being very alert, cheerful he is alert and very cranky. Wants to go home.) Eyes Bilateral: positive: PERRL, EOMI ENT: positive: No signs of dehydration Neck: positive: No JVD. negative: Stiff neck Respiratory: positive: No respiratory distress. negative: Wheezes, Rales, Rhonchi Cardiovascular: positive: Regular rate & rhythm, Systolic murmur. negative: Gallop/S4, Friction rub Abdomen: positive: Non-tender, No organomegaly, Nml bowel sounds, No distention Skin: positive: Warm, Dry Extremities: positive: Full ROM, No pedal edema Neurologic/Psychiatric: positive: CN's nml (2-12), Disoriented to person, Disoriented to place, Disoriented to time, Weakness. negative: Motor nml (Left arm weakness, left leg weakness. Both of them are subtle and mild in comparison to the right. Very slight loss of left nasolabial fold. These are all chronic residuals from previous stroke.) - Lab Results Fish Bones: 05/24/21 09:00 05/24/21 09:00 Assessment/Plan - Problem List (1) Neck pain Impression: had resolved but came back last night and today. It is musculoskeletal and worse w me pressing on paracervical neck muscle and with stretching his muscle. He had musculoskeletal neck pain earlier this admission then severe neck pain recurred twice 05/20 and the Hospitalist tried to perform neck massage. Tylenol and Motrin did not help, Flexeril was tried too. Finally he got Dilaudid once with good effect and none used since then. Was on pain meds (oxycodone) and Flexeril if needed and are po for SNF use. He was without symptoms 05/22 so I dc'd the oxy and the dilaudid 05/22 in view of them being a barier to transfer to SNF. They didn't want him on those meds. Continue on Lidocaine patch to put on his neck. Continue motrin and ice or heat packs. He is medically cleared for discharge. (2) Seizure as late effect of cerebrovascular accident (CVA) Assessment/Plan: This was the reason for admission (then he had several different complications). Stabilized but gets occais L arm shaking and has L sided neglect. His last gran mal was on admission. Has occ jacksonia L arm twitch and he is closely followed by the [facility] Epilepsy clinic. We will continue the current dose of Trileptal and Keppra. Vimpat was recommended before Trileptal but he can't afford it. At this point he is medically cleared for discharge. He was evaluated by physical therapy and SNF is recommended. SW is working on getting him placement. 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 MRI showed no evidence of acute stroke. At this point he is medically cleared for discharge. He was evaluated by physical therapy and SNF is recommended. (4) Afib Impression: He remains rate controlled on carvedilol. We will continue Eliquis. (5) Cardiomyopathy Impression: He has a history of heart failure with reduced ejection fraction but during this admission an Echo showed his EF is preserved. Labs were done today (he has had none in 6 days) and showed stable electrolytes and only mild dehydration (pre-renal azotemia), but he is not getting a diuretic, and suspect it is from his choosy nature to foods and drinks. We will continue carvedilol and lisinopril. (6) BPH (benign prostatic hyperplasia) Impression: Continue with Flomax, finasteride and now a chronic Rodriguez catheter. He had a Rodriguez placed early in the admission. Then he pulled it out. We had to put it back in again because of inability to urinate, and hematuria. He has had the Rodriguez in since that time. In the last day he has been very angry with it and would like it out. He would prefer to straight cath. We have tried redirecting his attention, reminding him of why the Rodriguez is in, and he still wants it out. As such we will take it out today. And possibly return to straight cath if he cannot urinate. (7) UTI (urinary tract infection) Impression: Resolved. He completed treatment with ciprofloxacin. (8) Delirium with dementia. Impression: Resolved. Delirium was quite severe and required restraints early in the admission. But those have been not been needed for several weeks now. He still at risk for but he has been doing well each night. Continue to limit sedatives. Yesterday and today he is very unhappy. He really wants to go home. Is stating that he would like to just go home to and never be hospitalized again. All of those thought processes were shared with his and daughter who saw him on May 24. They still would like him to go through with halfway facility rehab. The goal is to get him ambulatory enough to ambulate in his home, and get on and off the toilet. They will take care of him for everything else. They also would like palliative care consultation. I think that his dementia is definitely in place yesterday and today. He is forgetful, perseverating. (9) Chest pain Impression: Resolved. His EKG did not suggest ischemia. Troponins were within normal limits. He has not had return of this chest pain. We will continue to monitor. (10) Back pain Impression: This was musculoskeletal and has resolved. We will continue with lidocaine patch and Tylenol as needed. Qualifiers: Back pain location: low back pain Chronicity: acute Back pain laterality: left (11) Constipation Assessment/Plan: Resolved; pt had a large BM
[2021-05-25] MEDS: LIDOCAINE PATCH 5% TOP PRN (10:51)
[2021-05-25] MEDS: levETIRAcetam 250 MG TABLET PO SCH ×2 (11:22→19:51)
[2021-05-25] MEDS: OXcarbazepine 150 MG TABLET PO SCH ×2 (11:22→19:51)
[2021-05-25] MEDS: DOCUSATE SODIUM 250 MG CAPSULE PO SCH (11:23)
[2021-05-25] MEDS: APIXABAN 5 MG TABLET PO SCH ×2 (11:24→20:10)
[2021-05-25] MEDS: polyethylene glycoL 3350 17 GM PACKET PO SCH (11:25)
[2021-05-25] MEDS: SENNA 8.6 MG TABLET PO SCH (11:25)
[2021-05-25] MEDS: MAGNESIUM OXIDE 400 MG TABLET PO SCH (15:08)
[2021-05-25] MEDS: MULTIVITAMIN W/MINERALS TABLET PO SCH (15:08)
[2021-05-25] MEDS: lisinopriL 20 MG TABLET PO SCH (15:09)
[2021-05-25] MEDS: carvediloL 3.125 MG TABLET PO SCH ×2 (15:09→20:10)
[2021-05-25] MEDS: POTASSIUM CHLORIDE 10 MEQ CAPSULE PO SCH (15:09)
[2021-05-25] MEDS: FINASTERIDE 5 MG TABLET PO SCH ×2 (15:09→20:10)
[2021-05-25] MEDS: TAMSULOSIN 0.4 MG CAPSULE PO SCH (15:10)
[2021-05-25] MEDS: IBUPROFEN 600 MG TABLET PO PRN ×2 (15:37→22:03)
[2021-05-25] MEDS: CYCLOBENZAPRINE 10 MG TABLET PO PRN (15:37)
[2021-05-25] MEDS: ATORVASTATIN 40 MG TABLET PO SCH (20:10)
[2021-05-26] MEDS: SODIUM CHLORIDE FLUSH 0.9% 10 ML SYRINGE IVP SCH ×3 (01:13→21:09)
--- NOTE | 2021-05-26 07:36 | PROVIDER PROGRESS NOTE ---
Subjective - Prog Note Date Prog Note Date: 05/26/21 Prog Note Time: 07:34 - Subjective Subjective: quiet this am. no complaints. watching TV again. no reports from nursing or hospitalist last night of new events, Current Medications - Current Medications Current Medications: Active Medications Acetaminophen (Acetaminophen 500 Mg Tablet) 1,000 mg PO Q6H PRN PRN Reason: Pain or Fever > 38C (100.4F) Last Admin: 05/25/21 11:27 Dose: 1,000 mg Documented by: Apixaban (Apixaban 5 Mg Tablet) 5 mg PO BID [facility] Last Admin: 05/25/21 20:10 Dose: 5 mg Documented by: Atorvastatin Calcium (Atorvastatin 40 Mg Tablet) 40 mg PO QPM [facility] Last Admin: 05/25/21 20:10 Dose: 40 mg Documented by: Carvedilol (Carvedilol 3.125 Mg Tablet) 3.125 mg PO BID [facility] Last Admin: 05/25/21 20:10 Dose: 3.125 mg Documented by: Cyclobenzaprine HCl (Cyclobenzaprine 10 Mg Tablet) 10 mg PO TID PRN PRN Reason: Spasms Last Admin: 05/25/21 15:37 Dose: 10 mg Documented by: Docusate Sodium (Docusate Sodium 250 Mg Capsule) 250 - 500 mg PO DAILY [facility] Last Admin: 05/25/21 11:23 Dose: Not Given Documented by: Finasteride (Finasteride 5 Mg Tablet) 5 mg PO BID [facility] Last Admin: 05/25/21 20:10 Dose: 5 mg Documented by: Ibuprofen (Ibuprofen 600 Mg Tablet) 600 mg PO Q6HR PRN PRN Reason: PAIN Last Admin: 05/25/21 22:03 Dose: 600 mg Documented by: Levetiracetam (Levetiracetam 250 Mg Tablet) 1,000 mg PO BID [facility] Last Admin: 05/25/21 19:51 Dose: 1,000 mg Documented by: Lidocaine (Lidocaine Patch 5%) 1 patch TOP DAILY PRN PRN Reason: PAIN Last Admin: 05/25/21 10:51 Dose: 1 patch Documented by: Lisinopril (Lisinopril 20 Mg Tablet) 10 mg PO DAILY [facility] Last Admin: 05/25/21 15:09 Dose: Not Given Documented by: Magnesium Oxide (Magnesium Oxide 400 Mg Tablet) 400 mg PO DAILYWM [facility] Last Admin: 05/25/21 15:08 Dose: Not Given Documented by: Multi-Ingredient Ointment (Zinc Oxide 20% Oint 30 Gm Tube) 1 applic TOP PRN PRN PRN Reason: Skin Care Multivitamins/Minerals (Multivitamin W/Minerals Tablet) 1 tab PO DAILYWM [facility] Last Admin: 05/25/21 15:08 Dose: Not Given Documented by: Ondansetron HCl (Ondansetron 4 Mg/2 Ml Vial) 4 mg IVP Q6HR PRN PRN Reason: Nausea / Vomiting Last Admin: 05/14/21 09:43 Dose: 4 mg Documented by: Oxcarbazepine (Oxcarbazepine 150 Mg Tablet) 600 mg PO BID [facility] Last Admin: 05/25/21 19:51 Dose: 600 mg Documented by: Polyethylene Glycol (Polyethylene Glycol 3350 17 Gm Packet) 17 gm PO DAILY [facility] Last Admin: 05/25/21 11:25 Dose: Not Given Documented by: Potassium Chloride (Potassium Chloride 10 Meq Capsule) 10 meq PO DAILYWM [facility] Last Admin: 05/25/21 15:09 Dose: Not Given Documented by: Senna (Senna 8.6 Mg Tablet) 8.6 - 17.2 mg PO DAILY [facility] Last Admin: 05/25/21 11:25 Dose: Not Given Documented by: Sodium Chloride (Sodium Chloride Flush 0.9% 10 Ml Syringe) 10 ml IVP PRN PRN PRN Reason: NEEDED PER PROVIDER ORDERS Last Admin: 05/18/21 21:55 Dose: 10 ml Documented by: Sodium Chloride (Sodium Chloride Flush 0.9% 10 Ml Syringe) 10 ml IVP 0100,0900,1700 [facility] Last Admin: 05/26/21 01:13 Dose: 10 ml Documented by: Tamsulosin HCl (Tamsulosin 0.4 Mg Capsule) 0.4 mg PO DAILY [facility] Last Admin: 05/25/21 15:10 Dose: Not Given Documented by: Throat Lozenges (Benzocaine/Menthol Lozenge) 1 lozenge MM Q2HR PRN PRN Reason: Throat pain Last Admin: 05/22/21 09:10 Dose: 1 lozenge Documented by: Witch Ivone/Glycerin (Witch Ivone/Glycerin 1 Pad) 1 pad TOP PRN PRN PRN Reason: ITCHING Last Admin: 05/21/21 23:01 Dose: 1 pad Documented by: Apixaban [Eliquis] 1 tab PO DAILY 04/13/21 Finasteride [Proscar] 5 mg PO DAILY 04/13/21 Lisinopril [Zestril] 20 mg PO DAILY 04/13/21 Tamsulosin [Flomax] 0.4 mg PO DAILY 04/13/21 Objective - Vital Signs/Intake & Output Reviewed Vital Signs: Yes Vital Signs: Vital Signs x48h Temp Pulse Resp BP Pulse Ox 05/26/21 01:42 36.1 C L 69 18 118/70 95 Intake & Output: Intake & Output 05/23/21 05/24/21 05/25/21 05/26/21 23:59 23:59 23:59 23:59 Intake Total 622 1380 1112 200 Output Total 1525 1250 875 300 Balance -903 130 237 -100 - Objective General Appearance: positive: No acute distress, Alert, Other (elderly male w occ L hand tremor. cooperative, says "I'm fine") Eyes Bilateral: positive: PERRL, EOMI ENT: positive: No signs of dehydration Neck: positive: No JVD. negative: Stiff neck Respiratory: positive: No respiratory distress. negative: Wheezes, Rales, Rhonchi Cardiovascular: positive: Regular rate & rhythm, Systolic murmur. negative: Gallop/S4, Friction rub Abdomen: positive: Non-tender, No organomegaly, Nml bowel sounds, No distention Skin: positive: Warm, Dry Extremities: positive: No pedal edema Neurologic/Psychiatric: positive: Disoriented to place, Disoriented to time, Facial droop. negative: CN's nml (2-12) (L facial droop, mild), Motor nml (left arm weakness > L leg weakness in comparison to R but he can use his hand and lift his leg.) - Lab Results Fish Bones: 05/24/21 09:00 05/24/21 09:00 ABX Reporting Has patient been on IV antibiotics over the past 48 hours?: No Assessment/Plan - Problem List (1) Multifactorial dementia Impression: This gentleman has had strokes, and also has had significant seizures that have reduced his functional status tremendously. It takes months to get over a grand mal seizure for him. His states that sometimes it takes 3 to 6 months. He has been hospitalized with this problem for 43 days after a gran mal seizure followed by Jacksonian seizures and has improved since admission but still not back at the baseline he was before his last seizure resulting in admission. During this hospitalization he has required restraints intermittently. But has not had restraints for over 3 weeks. He has had a urinary tract infection, multiple medications which could all destabilize a baseline mental status. Currently stable with regards to behavior but not happy about being here and would like to go home. Does not quite understand that he is going to [facility] even though his daughter has let them know that. He also is irritated about the Rodriguez catheter but when we discontinue it, he has had 2 episodes of urinary retention. At this time we continue to work with his behavior via a one-to-one prompting from RN or aide. Reassurance. He appears to have days of calm behavior interspersed with intermittent unhappiness at being here. He had a 2 weeks of emotional stability and not happy the last 2 days. This am appears calm again. I have noted his expressed wishes to not ever have more hospitalizations or procedures and he wants to just go home and there if it's time. Right now it's not time. He is not terminal but his and daughter would like a Palliative Care consult. they hope to take him home from the SNF once he improves enough to be safely ambulatory at home and can get out of bed or go to the bathroom. The rest of his ADLs they can handle. Once home, they will continue with Palliative Care and transition to Hospice when it is time. (2) Neck pain comes and goes Impression: Present 2 days for this hospitalist this week. It is musculoskeletal and worse w me pressing on paracervical neck muscle and with stretching his muscle. He had musculoskeletal neck pain earlier this admission then severe neck pain recurred twice 05/20 and the Hospitalist tried to perform neck massage. Tylenol and Motrin did not help, Flexeril was tried too. Finally he got Dilaudid once with good effect and none used since then. Was on pain meds (oxycodone) and Flexeril if needed and are po for SNF use. He was without symptoms 05/22 so I dc'd the oxy and the dilaudid 05/22 in view of them being a barier to transfer to SNF. They didn't want him on those meds. Continue on Lidocaine patch to put on his neck. Continue motrin and ice or heat packs. He is medically cleared for discharge. (3) Seizure as late effect of cerebrovascular accident (CVA) Assessment/Plan: This was the reason for admission (then he had several different complications). Stabilized but gets occais L arm shaking and has L sided neglect. His last gran mal was on admission. Has occ jacksonian L arm twitch and he is closely followed by the [facility] Epilepsy clinic. We will continue the current dose of Trileptal and Keppra. Vimpat was recommended before Trileptal but he can't afford it. At this point he is medically cleared for discharge. He was evaluated by physical therapy and SNF is recommended. SW is working on getting him placement. 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 MRI showed no evidence of acute stroke. At this point he is medically cleared for discharge. He was evaluated by physical therapy and SNF is recommended. (5) Afib Impression: He remains rate controlled on carvedilol. We will continue Eliquis. (6) Cardiomyopathy Impression: He has a history of heart failure with reduced ejection fraction but during this admission an Echo showed his EF is preserved. Labs were done 05/18 and 05/24 and showed stable electrolytes and only mild dehydration (pre-renal azotemia), but he is not getting a diuretic, and suspect it is from his choosy nature to foods and drinks. We will continue carvedilol and lisinopril. Given one liter of NS this last week. (7) BPH (benign prostatic hyperplasia) Impression: Continue with Flomax, finasteride and now a chronic Rodriguez catheter. He had a Rodriguez placed early in the admission. Then he pulled it out. We had to put it back in again because of inability to urinate, and hematuria. He has had the Rodriguez in since that time. In the last day he has been very angry with it and would like it out. He would prefer to straight cath. We have tried redirecting his attention, reminding him of why the Rodriguez is in, and he still wants it out. I did order it to be removed in order to keep him calm, but the nurses and aides were able to distract him and it is still in. (8) UTI (urinary tract infection) Impression: Resolved. He completed treatment with ciprofloxacin. (9) Chest pain Impression: Resolved. His EKG did not suggest ischemia. Troponins were within normal limits. He has not had return of this chest pain. We will continue to monitor. (10) Back pain Impression: This was musculoskeletal and has resolved. We will continue with lidocaine patch and Tylenol as needed. Qualifiers: Back pain location: low back pain Chronicity: acute Back pain laterality: left (11) Constipation Assessment/Plan: Resolved; pt had a large and BM Bowel movements have been daily
[2021-05-26] MEDS: OXcarbazepine 150 MG TABLET PO SCH ×2 (08:57→21:03)
[2021-05-26] MEDS: levETIRAcetam 250 MG TABLET PO SCH ×2 (08:57→21:01)
[2021-05-26] MEDS: MAGNESIUM OXIDE 400 MG TABLET PO SCH (09:10)
[2021-05-26] MEDS: DOCUSATE SODIUM 250 MG CAPSULE PO SCH (09:11)
[2021-05-26] MEDS: MULTIVITAMIN W/MINERALS TABLET PO SCH (09:11)
[2021-05-26] MEDS: FINASTERIDE 5 MG TABLET PO SCH ×2 (09:11→21:05)
[2021-05-26] MEDS: APIXABAN 5 MG TABLET PO SCH ×2 (09:11→21:06)
[2021-05-26] MEDS: POTASSIUM CHLORIDE 10 MEQ CAPSULE PO SCH (09:11)
[2021-05-26] MEDS: SENNA 8.6 MG TABLET PO SCH (09:12)
[2021-05-26] MEDS: TAMSULOSIN 0.4 MG CAPSULE PO SCH (09:12)
[2021-05-26] MEDS: carvediloL 3.125 MG TABLET PO SCH ×2 (09:12→21:09)
[2021-05-26] MEDS: lisinopriL 20 MG TABLET PO SCH (09:15)
[2021-05-26] MEDS: polyethylene glycoL 3350 17 GM PACKET PO SCH (09:15)
[2021-05-26] MEDS: IBUPROFEN 600 MG TABLET PO PRN ×2 (15:24→21:07)
[2021-05-26] MEDS: ATORVASTATIN 40 MG TABLET PO SCH (21:06)
[2021-05-27] MEDS: SODIUM CHLORIDE FLUSH 0.9% 10 ML SYRINGE IVP SCH ×3 (04:48→20:46)
--- NOTE | 2021-05-27 08:31 | PROVIDER PROGRESS NOTE ---
Assessment/Plan - Problem List (1) Seizure as late effect of cerebrovascular accident (CVA) Assessment/Plan: On Trileptal and Keppra. While patient has not had another grand mal seizure in the while, he occa sionally experiences left arm shaking and left-sided neglect. He is currently medically optimized. He has been evaluated by physical therapy and SNF was recommended. Social work is working on getting placement for him. Upon discharge the patient would be expected to follow-up with [facility] epilepsy clinic. (2) Afib Assessment/Plan: Rate controlled on carvedilol. He is also on Eliquis. (3) BPH (benign prostatic hyperplasia) Assessment/Plan: Pernell and finasteride. He also has a chronic Rodriguez catheter. - Current Meds Current Meds: Current Medications Generic Name Dose Route Start Last Admin Trade Name Freq PRN Reason Stop Dose Admin Acetaminophen 1,000 mg 04/16/21 15:44 05/25/21 11:27 Acetaminophen 500 Mg Tablet PO 1,000 mg Q6H PRN Administration Pain or Fever > 38C (100.4F) Apixaban 5 mg 04/27/21 21:00 05/26/21 21:06 Apixaban 5 Mg Tablet PO 5 mg BID PHAN Administration Atorvastatin Calcium 40 mg 04/19/21 21:00 05/26/21 21:06 Atorvastatin 40 Mg Tablet PO 40 mg QPM PHAN Administration Carvedilol 3.125 mg 04/19/21 12:00 05/26/21 21:09 Carvedilol 3.125 Mg Tablet PO 3.125 mg BID PHAN Administration Cyclobenzaprine HCl 10 mg 05/18/21 20:14 05/25/21 15:37 Cyclobenzaprine 10 Mg Tablet PO 10 mg TID PRN Administration Spasms Docusate Sodium 250 - 500 mg 04/16/21 09:00 05/26/21 09:11 Docusate Sodium 250 Mg Capsule PO 250 mg DAILY PHAN Administration Finasteride 5 mg 04/17/21 21:00 05/26/21 21:05 Finasteride 5 Mg Tablet PO 5 mg BID PHAN Administration Ibuprofen 600 mg 05/19/21 08:03 05/26/21 21:07 Ibuprofen 600 Mg Tablet PO 600 mg Q6HR PRN Administration PAIN Levetiracetam 1,000 mg 05/05/21 22:00 05/26/21 21:01 Levetiracetam 250 Mg Tablet PO 1,000 mg BID PHAN Administration Lidocaine 1 patch 05/19/21 08:33 05/25/21 10:51 Lidocaine Patch 5% TOP 1 patch DAILY PRN Administration PAIN Lisinopril 10 mg 05/16/21 09:00 05/26/21 09:15 Lisinopril 20 Mg Tablet PO 10 mg DAILY PHAN Administration Magnesium Oxide 400 mg 05/14/21 12:00 05/26/21 09:10 Magnesium Oxide 400 Mg Tablet PO 400 mg DAILYWM PHAN Administration Multivitamins/Minerals 1 tab 04/18/21 12:00 05/26/21 09:11 Multivitamin W/Minerals Tablet PO 1 tab DAILYWM PHAN Administration Ondansetron HCl 4 mg 04/13/21 17:14 05/14/21 09:43 Ondansetron 4 Mg/2 Ml Vial IVP 4 mg Q6HR PRN Administration Nausea / Vomiting Oxcarbazepine 600 mg 05/09/21 21:00 05/26/21 21:03 Oxcarbazepine 150 Mg Tablet PO 600 mg BID PHAN Administration Polyethylene Glycol 17 gm 04/16/21 09:00 05/26/21 09:15 Polyethylene Glycol 3350 17 Gm Packet PO 17 gm DAILY PHAN Administration Potassium Chloride 10 meq 05/16/21 12:00 05/26/21 09:11 Potassium Chloride 10 Meq Capsule PO 10 meq DAILYWM PHAN Administration Senna 8.6 - 17.2 mg 04/16/21 09:00 05/26/21 09:12 Senna 8.6 Mg Tablet PO 8.6 mg DAILY PHAN Administration Sodium Chloride 10 ml 04/13/21 17:14 05/18/21 21:55 Sodium Chloride Flush 0.9% 10 Ml Syringe IVP 10 ml PRN PRN Administration NEEDED PER PROVIDER ORDERS Sodium Chloride 10 ml 04/14/21 01:00 05/27/21 04:48 Sodium Chloride Flush 0.9% 10 Ml Syringe IVP 10 ml 0100,0900,1700 PHAN Administration Tamsulosin HCl 0.4 mg 04/14/21 09:00 05/26/21 09:12 Tamsulosin 0.4 Mg Capsule PO 0.4 mg DAILY PHAN Administration Throat Lozenges 1 lozenge 05/19/21 01:20 05/22/21 09:10 Benzocaine/Menthol Lozenge MM 1 lozenge Q2HR PRN Administration Throat pain Witch Ivone/Glycerin 1 pad 05/21/21 22:42 05/21/21 23:01 Witch Ivone/Glycerin 1 Pad TOP 1 pad PRN PRN Administration ITCHING - Lab Result Fish Bone Diagrams: 05/24/21 09:00 05/24/21 09:00 Subjective - Subjective Patient Reports: Other (Resting comfortably in the bedside chair at time of exam. He denied any complaints. He has mild left hand tremor.) Objective Vital Signs: Vital Signs - 24 hr 05/26/21 05/27/21 05/27/21 16:00 03:23 08:00 Temperature 36.7 C 36.5 C 36.5 C Heart Rate [ 83 79 76 Brachial] Respiratory 16 16 16 Rate Blood Pressure 108/68 [Right Brachial artery] Blood Pressure 110/54 L 140/74 H [Right Radial artery] O2 Saturation 97 100 99 Oxygen O2 Source Room air I&O (Last 24 Hrs): Intake and Output Totals x24h 05/25/21 05/26/21 05/27/21 23:59 23:59 23:59 Intake Total 1112 1062 50 Output Total 875 950 300 Balance 237 112 -250 General: Alert, No acute distress HEENT: PERRLA, EOMI Neck: Supple, No JVD Neuro: Alert, Disoriented (To place), Focal Deficits (Left arm weakness greater than left leg weakness. Residual deficits from previous CVA) Cardiovascular: Regular rate Respiratory: Chest non-tender, No respiratory distress, Wheezes Abdomen: Normal bowel sounds, Soft, No tenderness Extremities: No clubbing, No cyanosis, No edema, No tenderness/swelling Skin: No rashes, No breakdown, No significant lesion - Results Results: Laboratory Results WBC 7.5 x10^3/uL (4.8-10.8) 05/24/21 09:00 RBC 3.41 10^6/uL (4.70-6.10) L 05/24/21 09:00 Hgb 9.9 g/dL (14.0-18.0) L 05/24/21 09:00 Hct 29.5 % (42.0-52.0) L 05/24/21 09:00 MCV 86.5 fL (80.0-94.0) 05/24/21 09:00 MCH 29.0 pg (27.0-31.0) 05/24/21 09:00 MCHC 33.6 g/dL (32.0-36.0) 05/24/21 09:00 RDW 13.6 % (12.0-15.0) 05/24/21 09:00 Plt Count 265 10^3/uL (130-450) 05/24/21 09:00 MPV 8.9 fL (7.4-11.4) 05/24/21 09:00 Neut # (Auto) 5.5 10^3/uL (1.5-6.6) 05/24/21 09:00 Lymph # (Auto) 1.3 10^3/uL (1.5-3.5) L 05/24/21 09:00 [place] # (Auto) 0.5 10^3/uL (0.0-1.0) 05/24/21 09:00 Eos # (Auto) 0.1 10^3/uL (0.0-0.7) 05/24/21 09:00 Baso # (Auto) 0.1 10^3/uL (0.0-0.1) 05/24/21 09:00 Absolute Nucleated RBC 0.00 x10^3/uL 05/24/21 09:00 Total Counted 100 04/22/21 10:26 Band Neuts % (Manual) 1 % (0-10) 04/22/21 10:26 Abnorm Lymph % (Manual) 0 % 04/22/21 10:26 Nucleated RBC % 0.0 /100WBC 05/24/21 09:00 Neutrophils # (Manual) 37.9 10^3/uL (1.5-6.6) H 04/22/21 10:26 Lymphocytes # (Manual) 0.0 10^3/uL (1.5-3.5) L 04/22/21 10:26 Monocytes # (Manual) 0.8 10^3/uL (0.0-1.0) 04/22/21 10:26 Eosinophils # (Manual) 0.0 10^3/uL (0-0.7) 04/22/21 10:26 Basophils # (Manual) 0.0 10^3/uL (0-0.1) 04/22/21 10:26 Differential Comment MANUAL DIFFERENTIAL 04/22/21 10:26 WBC Morphology NORMAL APPEARANCE (NORMAL) 04/22/21 04:40 Platelet Estimate NORMAL (130-450,000) (NORMAL) 04/22/21 10:26 Platelet Morphology NORMAL APPEARANCE (NORMAL) 04/22/21 10:26 RBC Morph Micro Appear NORMAL APPEARANCE (NORMAL) 04/22/21 10:26 Sodium 127 mmol/L (135-145) L 05/24/21 09:00 Potassium 4.2 mmol/L (3.5-5.0) 05/24/21 09:00 Chloride 96 mmol/L (101-111) L 05/24/21 09:00 Carbon Dioxide 24 mmol/L (21-32) 05/24/21 09:00 Anion Gap 7.0 (6-13) 05/24/21 09:00 BUN 19 mg/dL (6-20) 05/24/21 09:00 Creatinine 0.8 mg/dL (0.6-1.2) 05/24/21 09:00 Estimated GFR (MDRD) 93 (>89) 05/24/21 09:00 Glucose 99 mg/dL (70-100) 05/24/21 09:00 POC Whole Bld Glucose 128 mg/dL (70 - 100) H 04/28/21 10:17 Calcium 8.7 mg/dL (8.5-10.3) 05/24/21 09:00 Magnesium 2.2 mg/dL (1.7-2.8) 05/18/21 06:57 Total Bilirubin 0.9 mg/dL (0.2-1.0) 05/24/21 09:00 AST 17 IU/L (10-42) 05/24/21 09:00 ALT 17 IU/L (10-60) 05/24/21 09:00 Alkaline Phosphatase 98 IU/L (42-121) 05/24/21 09:00 Troponin I High Sens 6.0 ng/L (2.3-19.7) 05/12/21 11:44 Total Protein 6.0 g/dL (6.7-8.2) L 05/24/21 09:00 Albumin 3.4 g/dL (3.2-5.5) 05/24/21 09:00 Globulin 2.6 g/dL (2.1-4.2) 05/24/21 09:00 Albumin/Globulin Ratio 1.3 (1.0-2.2) 05/24/21 09:00 Urine Color YELLOW 05/24/21 09:13 Urine Clarity CLEAR (CLEAR) 05/24/21 09:13 Urine pH 7.5 PH (5.0-7.5) 05/24/21 09:13 Ur Specific [place] 1.020 (1.002-1.030) 05/24/21 09:13 Urine Protein NEGATIVE mg/dL (NEGATIVE) 05/24/21 09:13 Urine Glucose (UA) NEGATIVE mg/dL (NEGATIVE) 05/24/21 09:13 Urine Ketones NEGATIVE mg/dL (NEGATIVE) 05/24/21 09:13 Urine Occult Blood SMALL (NEGATIVE) H 05/24/21 09:13 Urine Nitrite POSITIVE (NEGATIVE) H 05/24/21 09:13 Urine Bilirubin NEGATIVE (NEGATIVE) 05/24/21 09:13 Urine Urobilinogen 0.2 (NORMAL) E.U./dL (NORMAL) 05/24/21 09:13 Ur Leukocyte Esterase NEGATIVE (NEGATIVE) 05/24/21 09:13 Urine RBC 0-5 /HPF (0-5) 05/24/21 09:13 Urine WBC 0-3 /HPF (0-3) 05/24/21 09:13 Urine WBC Clumps NONE SEEN 05/24/21 09:13 Ur Squamous Epith Cells RARE Squamous (<= Few) 05/24/21 09:13 Amorphous Sediment Few /LPF 04/15/21 11:50 Urine Bacteria None Seen /HPF (None Seen) 05/24/21 09:13 Urine Mucus Moderate Strands 04/22/21 12:01 Urine Culture Comments INDICATED 05/24/21 09:13 Nasal Adenovirus (PCR) NOT DETECTED 04/13/21 16:48 Nasal B. parapertussis DNA (PCR) NOT DETECTED 04/13/21 16:48 Nasal Coronavir 229E PCR NOT DETECTED 04/13/21 16:48 Nasal Coronavir HKU1 PCR NOT DETECTED 04/13/21 16:48 Nasal Coronavir NL63 PCR NOT DETECTED 04/13/21 16:48 Nasal Coronavir OC43 PCR NOT DETECTED 04/13/21 16:48 Nasal Enterovir/Rhinovir PCR NOT DETECTED 04/13/21 16:48 Nasal Influenza B PCR NOT DETECTED 04/13/21 16:48 Nasal Influenza A PCR NOT DETECTED 04/13/21 16:48 Nasal Parainfluen 1 PCR NOT DETECTED 04/13/21 16:48 Nasal Parainfluen 2 PCR NOT DETECTED 04/13/21 16:48 Nasal Parainfluen 3 PCR NOT DETECTED 04/13/21 16:48 Nasal Parainfluen 4 PCR NOT DETECTED 04/13/21 16:48 Nasal RSV (PCR) NOT DETECTED 04/13/21 16:48 Nasal B.pertussis DNA PCR NOT DETECTED 04/13/21 16:48 Nasal C.pneumoniae (PCR) NOT DETECTED 04/13/21 16:48 Mian Human Metapneumo PCR NOT DETECTED 04/13/21 16:48 Nasal M.pneumoniae (PCR) NOT DETECTED 04/13/21 16:48 Nasal SARS-CoV-2 (PCR) NOT DETECTED 04/13/21 16:48 Levetiracetam 28.3 mcg/mL 04/25/21 12:24 Ethyl Alcohol < 5.0 mg/dL 04/13/21 13:10 ABX Reporting Has patient been on IV antibiotics over the past 48 hours?: No
[2021-05-27] MEDS: SENNA 8.6 MG TABLET PO SCH (10:10)
[2021-05-27] MEDS: OXcarbazepine 150 MG TABLET PO SCH ×2 (10:10→20:45)
[2021-05-27] MEDS: levETIRAcetam 250 MG TABLET PO SCH ×2 (10:10→20:45)
[2021-05-27] MEDS: DOCUSATE SODIUM 250 MG CAPSULE PO SCH (10:11)
[2021-05-27] MEDS: POTASSIUM CHLORIDE 10 MEQ CAPSULE PO SCH (10:11)
[2021-05-27] MEDS: carvediloL 3.125 MG TABLET PO SCH ×2 (10:11→20:45)
[2021-05-27] MEDS: TAMSULOSIN 0.4 MG CAPSULE PO SCH (10:11)
[2021-05-27] MEDS: APIXABAN 5 MG TABLET PO SCH ×2 (10:11→20:45)
[2021-05-27] MEDS: MAGNESIUM OXIDE 400 MG TABLET PO SCH (10:11)
[2021-05-27] MEDS: MULTIVITAMIN W/MINERALS TABLET PO SCH (10:12)
[2021-05-27] MEDS: FINASTERIDE 5 MG TABLET PO SCH ×2 (10:12→20:45)
[2021-05-27] MEDS: lisinopriL 20 MG TABLET PO SCH (10:12)
[2021-05-27] MEDS: polyethylene glycoL 3350 17 GM PACKET PO SCH (10:13)
[2021-05-27] MEDS: IBUPROFEN 600 MG TABLET PO PRN (20:45)
[2021-05-27] MEDS: ATORVASTATIN 40 MG TABLET PO SCH (20:45)
[2021-05-28] MEDS: SODIUM CHLORIDE FLUSH 0.9% 10 ML SYRINGE IVP SCH ×3 (01:21→18:33)
[2021-05-28] MEDS: polyethylene glycoL 3350 17 GM PACKET PO SCH (06:17)
[2021-05-28] MEDS: lisinopriL 20 MG TABLET PO SCH (06:18)
[2021-05-28] MEDS: OXcarbazepine 150 MG TABLET PO SCH ×2 (06:18→22:12)
[2021-05-28] MEDS: TAMSULOSIN 0.4 MG CAPSULE PO SCH (06:19)
[2021-05-28] MEDS: POTASSIUM CHLORIDE 10 MEQ CAPSULE PO SCH (06:19)
[2021-05-28] MEDS: APIXABAN 5 MG TABLET PO SCH ×2 (06:20→22:13)
[2021-05-28] MEDS: DOCUSATE SODIUM 250 MG CAPSULE PO SCH (06:20)
[2021-05-28] MEDS: SENNA 8.6 MG TABLET PO SCH (06:20)
[2021-05-28] MEDS: MAGNESIUM OXIDE 400 MG TABLET PO SCH (06:21)
[2021-05-28] MEDS: levETIRAcetam 250 MG TABLET PO SCH ×2 (06:21→22:12)
[2021-05-28] MEDS: carvediloL 3.125 MG TABLET PO SCH ×2 (06:21→22:12)
[2021-05-28] MEDS: ACETAMINOPHEN 500 MG TABLET PO PRN ×2 (06:22→18:33)
[2021-05-28] MEDS: FINASTERIDE 5 MG TABLET PO SCH ×2 (06:22→22:12)
[2021-05-28] MEDS: MULTIVITAMIN W/MINERALS TABLET PO SCH (06:22)
--- NOTE | 2021-05-28 07:43 | PROVIDER PROGRESS NOTE ---
Assessment/Plan - Problem List (1) Seizure as late effect of cerebrovascular accident (CVA) Assessment/Plan: On Trileptal and Keppra. While patient has not had another grand mal seizure in the while, he occa sionally experiences left arm shaking and left-sided neglect. He is currently medically optimized. He has been evaluated by physical therapy and SNF was recommended. Social work is working on getting placement for him. Upon discharge the patient would be expected to follow-up with [facility] epilepsy clinic. (2) Afib Assessment/Plan: Rate controlled on carvedilol. He is also on Eliquis. (3) BPH (benign prostatic hyperplasia) Assessment/Plan: Flomax and finasteride. He also has a chronic Rodriguez catheter. - Current Meds Current Meds: Current Medications Generic Name Dose Route Start Last Admin Trade Name Freq PRN Reason Stop Dose Admin Acetaminophen 1,000 mg 04/16/21 15:44 05/28/21 06:22 Acetaminophen 500 Mg Tablet PO 1,000 mg Q6H PRN Administration Pain or Fever > 38C (100.4F) Apixaban 5 mg 04/27/21 21:00 05/28/21 06:20 Apixaban 5 Mg Tablet PO 5 mg BID PHAN Administration Atorvastatin Calcium 40 mg 04/19/21 21:00 05/27/21 20:45 Atorvastatin 40 Mg Tablet PO 40 mg QPM PHAN Administration Carvedilol 3.125 mg 04/19/21 12:00 05/28/21 06:21 Carvedilol 3.125 Mg Tablet PO 3.125 mg BID PHAN Administration Cyclobenzaprine HCl 10 mg 05/18/21 20:14 05/25/21 15:37 Cyclobenzaprine 10 Mg Tablet PO 10 mg TID PRN Administration Spasms Docusate Sodium 250 - 500 mg 04/16/21 09:00 05/28/21 06:20 Docusate Sodium 250 Mg Capsule PO 250 mg DAILY PHAN Administration Finasteride 5 mg 04/17/21 21:00 05/28/21 06:22 Finasteride 5 Mg Tablet PO 5 mg BID PHAN Administration Ibuprofen 600 mg 05/19/21 08:03 05/27/21 20:45 Ibuprofen 600 Mg Tablet PO 600 mg Q6HR PRN Administration PAIN Levetiracetam 1,000 mg 05/05/21 22:00 05/28/21 06:21 Levetiracetam 250 Mg Tablet PO 1,000 mg BID PHAN Administration Lidocaine 1 patch 05/19/21 08:33 05/25/21 10:51 Lidocaine Patch 5% TOP 1 patch DAILY PRN Administration PAIN Lisinopril 10 mg 05/16/21 09:00 05/28/21 06:18 Lisinopril 20 Mg Tablet PO 10 mg DAILY PHAN Administration Magnesium Oxide 400 mg 05/14/21 12:00 05/28/21 06:21 Magnesium Oxide 400 Mg Tablet PO 400 mg DAILYWM PHAN Administration Multivitamins/Minerals 1 tab 04/18/21 12:00 05/28/21 06:22 Multivitamin W/Minerals Tablet PO 1 tab DAILYWM PHAN Administration Ondansetron HCl 4 mg 04/13/21 17:14 05/14/21 09:43 Ondansetron 4 Mg/2 Ml Vial IVP 4 mg Q6HR PRN Administration Nausea / Vomiting Oxcarbazepine 600 mg 05/09/21 21:00 05/28/21 06:18 Oxcarbazepine 150 Mg Tablet PO 600 mg BID PHAN Administration Polyethylene Glycol 17 gm 04/16/21 09:00 05/28/21 06:17 Polyethylene Glycol 3350 17 Gm Packet PO 17 gm DAILY PHAN Administration Potassium Chloride 10 meq 05/16/21 12:00 05/28/21 06:19 Potassium Chloride 10 Meq Capsule PO 10 meq DAILYWM PHAN Administration Senna 8.6 - 17.2 mg 04/16/21 09:00 05/28/21 06:20 Senna 8.6 Mg Tablet PO 8.6 mg DAILY PHAN Administration Sodium Chloride 10 ml 04/13/21 17:14 05/18/21 21:55 Sodium Chloride Flush 0.9% 10 Ml Syringe IVP 10 ml PRN PRN Administration NEEDED PER PROVIDER ORDERS Sodium Chloride 10 ml 04/14/21 01:00 05/28/21 06:25 Sodium Chloride Flush 0.9% 10 Ml Syringe IVP 10 ml 0100,0900,1700 PHAN Administration Tamsulosin HCl 0.4 mg 04/14/21 09:00 05/28/21 06:19 Tamsulosin 0.4 Mg Capsule PO 0.4 mg DAILY PHAN Administration Throat Lozenges 1 lozenge 05/19/21 01:20 05/22/21 09:10 Benzocaine/Menthol Lozenge MM 1 lozenge Q2HR PRN Administration Throat pain Witch Ivone/Glycerin 1 pad 05/21/21 22:42 05/21/21 23:01 Witch Ivone/Glycerin 1 Pad TOP 1 pad PRN PRN Administration ITCHING - Lab Result Fish Bone Diagrams: 05/24/21 09:00 05/24/21 09:00 Subjective - Subjective Patient Reports: Other (Resting comfortably in bedside recliner. Mild left hand tremor noticeable. He is only interested in eating burgers and fries for every meal.) Objective Vital Signs: Vital Signs - 24 hr 05/27/21 05/27/21 05/28/21 08:00 16:00 00:10 Temperature 36.5 C 36.7 C 36.5 C Heart Rate [ 76 96 69 Brachial] Respiratory 16 16 16 Rate Blood Pressure 122/68 109/58 L [Right Brachial artery] Blood Pressure 140/74 H [Right Radial artery] O2 Saturation 99 97 97 05/28/21 06:29 Temperature 36.3 C L Heart Rate [ 65 Brachial] Respiratory 18 Rate Blood Pressure [Right Brachial artery] Blood Pressure 113/52 L [Right Radial artery] O2 Saturation 97 Oxygen O2 Source Room air I&O (Last 24 Hrs): Intake and Output Totals x24h 05/26/21 05/27/21 05/28/21 23:59 23:59 23:59 Intake Total 1062 1262 Output Total 950 1050 275 Balance 112 212 -275 Comments/Notes: General: Alert, No acute distress HEENT: PERRLA, EOMI Neck: Supple, No JVD Neuro: Alert, Disoriented (To place), Focal Deficits (Left arm weakness greater than left leg weakness. Residual deficits from previous CVA) Cardiovascular: Regular rate Respiratory: Chest non-tender, No respiratory distress, Wheezes Abdomen: Normal bowel sounds, Soft, No tenderness Extremities: No clubbing, No cyanosis, No edema, No tenderness/swelling Skin: No rashes, No breakdown, No significant lesion - Results Results: Laboratory Results WBC 7.5 x10^3/uL (4.8-10.8) 05/24/21 09:00 RBC 3.41 10^6/uL (4.70-6.10) L 05/24/21 09:00 Hgb 9.9 g/dL (14.0-18.0) L 05/24/21 09:00 Hct 29.5 % (42.0-52.0) L 05/24/21 09:00 MCV 86.5 fL (80.0-94.0) 05/24/21 09:00 MCH 29.0 pg (27.0-31.0) 05/24/21 09:00 MCHC 33.6 g/dL (32.0-36.0) 05/24/21 09:00 RDW 13.6 % (12.0-15.0) 05/24/21 09:00 Plt Count 265 10^3/uL (130-450) 05/24/21 09:00 MPV 8.9 fL (7.4-11.4) 05/24/21 09:00 Neut # (Auto) 5.5 10^3/uL (1.5-6.6) 05/24/21 09:00 Lymph # (Auto) 1.3 10^3/uL (1.5-3.5) L 05/24/21 09:00 [place] # (Auto) 0.5 10^3/uL (0.0-1.0) 05/24/21 09:00 Eos # (Auto) 0.1 10^3/uL (0.0-0.7) 05/24/21 09:00 Baso # (Auto) 0.1 10^3/uL (0.0-0.1) 05/24/21 09:00 Absolute Nucleated RBC 0.00 x10^3/uL 05/24/21 09:00 Total Counted 100 04/22/21 10:26 Band Neuts % (Manual) 1 % (0-10) 04/22/21 10:26 Abnorm Lymph % (Manual) 0 % 04/22/21 10:26 Nucleated RBC % 0.0 /100WBC 05/24/21 09:00 Neutrophils # (Manual) 37.9 10^3/uL (1.5-6.6) H 04/22/21 10:26 Lymphocytes # (Manual) 0.0 10^3/uL (1.5-3.5) L 04/22/21 10:26 Monocytes # (Manual) 0.8 10^3/uL (0.0-1.0) 04/22/21 10:26 Eosinophils # (Manual) 0.0 10^3/uL (0-0.7) 04/22/21 10:26 Basophils # (Manual) 0.0 10^3/uL (0-0.1) 04/22/21 10:26 Differential Comment MANUAL DIFFERENTIAL 04/22/21 10:26 WBC Morphology NORMAL APPEARANCE (NORMAL) 04/22/21 04:40 Platelet Estimate NORMAL (130-450,000) (NORMAL) 04/22/21 10:26 Platelet Morphology NORMAL APPEARANCE (NORMAL) 04/22/21 10:26 RBC Morph Micro Appear NORMAL APPEARANCE (NORMAL) 04/22/21 10:26 Sodium 127 mmol/L (135-145) L 05/24/21 09:00 Potassium 4.2 mmol/L (3.5-5.0) 05/24/21 09:00 Chloride 96 mmol/L (101-111) L 05/24/21 09:00 Carbon Dioxide 24 mmol/L (21-32) 05/24/21 09:00 Anion Gap 7.0 (6-13) 05/24/21 09:00 BUN 19 mg/dL (6-20) 05/24/21 09:00 Creatinine 0.8 mg/dL (0.6-1.2) 05/24/21 09:00 Estimated GFR (MDRD) 93 (>89) 05/24/21 09:00 Glucose 99 mg/dL (70-100) 05/24/21 09:00 POC Whole Bld Glucose 128 mg/dL (70 - 100) H 04/28/21 10:17 Calcium 8.7 mg/dL (8.5-10.3) 05/24/21 09:00 Magnesium 2.2 mg/dL (1.7-2.8) 05/18/21 06:57 Total Bilirubin 0.9 mg/dL (0.2-1.0) 05/24/21 09:00 AST 17 IU/L (10-42) 05/24/21 09:00 ALT 17 IU/L (10-60) 05/24/21 09:00 Alkaline Phosphatase 98 IU/L (42-121) 05/24/21 09:00 Troponin I High Sens 6.0 ng/L (2.3-19.7) 05/12/21 11:44 Total Protein 6.0 g/dL (6.7-8.2) L 05/24/21 09:00 Albumin 3.4 g/dL (3.2-5.5) 05/24/21 09:00 Globulin 2.6 g/dL (2.1-4.2) 05/24/21 09:00 Albumin/Globulin Ratio 1.3 (1.0-2.2) 05/24/21 09:00 Urine Color YELLOW 05/24/21 09:13 Urine Clarity CLEAR (CLEAR) 05/24/21 09:13 Urine pH 7.5 PH (5.0-7.5) 05/24/21 09:13 Ur Specific [place] 1.020 (1.002-1.030) 05/24/21 09:13 Urine Protein NEGATIVE mg/dL (NEGATIVE) 05/24/21 09:13 Urine Glucose (UA) NEGATIVE mg/dL (NEGATIVE) 05/24/21 09:13 Urine Ketones NEGATIVE mg/dL (NEGATIVE) 05/24/21 09:13 Urine Occult Blood SMALL (NEGATIVE) H 05/24/21 09:13 Urine Nitrite POSITIVE (NEGATIVE) H 05/24/21 09:13 Urine Bilirubin NEGATIVE (NEGATIVE) 05/24/21 09:13 Urine Urobilinogen 0.2 (NORMAL) E.U./dL (NORMAL) 05/24/21 09:13 Ur Leukocyte Esterase NEGATIVE (NEGATIVE) 05/24/21 09:13 Urine RBC 0-5 /HPF (0-5) 05/24/21 09:13 Urine WBC 0-3 /HPF (0-3) 05/24/21 09:13 Urine WBC Clumps NONE SEEN 05/24/21 09:13 Ur Squamous Epith Cells RARE Squamous (<= Few) 05/24/21 09:13 Amorphous Sediment Few /LPF 04/15/21 11:50 Urine Bacteria None Seen /HPF (None Seen) 05/24/21 09:13 Urine Mucus Moderate Strands 04/22/21 12:01 Urine Culture Comments INDICATED 05/24/21 09:13 Nasal Adenovirus (PCR) NOT DETECTED 04/13/21 16:48 Nasal B. parapertussis DNA (PCR) NOT DETECTED 04/13/21 16:48 Nasal Coronavir 229E PCR NOT DETECTED 04/13/21 16:48 Nasal Coronavir HKU1 PCR NOT DETECTED 04/13/21 16:48 Nasal Coronavir NL63 PCR NOT DETECTED 04/13/21 16:48 Nasal Coronavir OC43 PCR NOT DETECTED 04/13/21 16:48 Nasal Enterovir/Rhinovir PCR NOT DETECTED 04/13/21 16:48 Nasal Influenza B PCR NOT DETECTED 04/13/21 16:48 Nasal Influenza A PCR NOT DETECTED 04/13/21 16:48 Nasal Parainfluen 1 PCR NOT DETECTED 04/13/21 16:48 Nasal Parainfluen 2 PCR NOT DETECTED 04/13/21 16:48 Nasal Parainfluen 3 PCR NOT DETECTED 04/13/21 16:48 Nasal Parainfluen 4 PCR NOT DETECTED 04/13/21 16:48 Nasal RSV (PCR) NOT DETECTED 04/13/21 16:48 Nasal B.pertussis DNA PCR NOT DETECTED 04/13/21 16:48 Nasal C.pneumoniae (PCR) NOT DETECTED 04/13/21 16:48 Mian Human Metapneumo PCR NOT DETECTED 04/13/21 16:48 Nasal M.pneumoniae (PCR) NOT DETECTED 04/13/21 16:48 Nasal SARS-CoV-2 (PCR) NOT DETECTED 04/13/21 16:48 Levetiracetam 28.3 mcg/mL 04/25/21 12:24 Ethyl Alcohol < 5.0 mg/dL 04/13/21 13:10
[2021-05-28] MEDS: IBUPROFEN 600 MG TABLET PO PRN (14:01)
[2021-05-28] MEDS: ATORVASTATIN 40 MG TABLET PO SCH (22:13)
[2021-05-29] MEDS: SODIUM CHLORIDE FLUSH 0.9% 10 ML SYRINGE IVP SCH ×3 (00:28→17:56)
[2021-05-29] MEDS: IBUPROFEN 600 MG TABLET PO PRN ×2 (02:21→21:37)
[2021-05-29] MEDS: CYCLOBENZAPRINE 10 MG TABLET PO PRN ×2 (02:21→21:36)
[2021-05-29] MEDS: POTASSIUM CHLORIDE 10 MEQ CAPSULE PO SCH (08:29)
[2021-05-29] MEDS: MULTIVITAMIN W/MINERALS TABLET PO SCH (08:29)
[2021-05-29] MEDS: MAGNESIUM OXIDE 400 MG TABLET PO SCH (08:29)
--- NOTE | 2021-05-29 08:29 | PROVIDER PROGRESS NOTE ---
Assessment/Plan - Problem List (1) Seizure as late effect of cerebrovascular accident (CVA) Assessment/Plan: On Trileptal and Keppra. While patient has not had another grand mal seizure in the while, he occa sionally experiences left arm shaking and left-sided neglect. He is currently medically optimized. He has been evaluated by physical therapy and SNF was recommended. Social work is working on getting placement for him. Upon discharge the patient would be expected to follow-up with [facility] epilepsy clinic. (2) Afib Assessment/Plan: Rate controlled on carvedilol. He is also on Eliquis. (3) BPH (benign prostatic hyperplasia) Assessment/Plan: Flomax and finasteride. He also has a chronic Rodriguez catheter. - Current Meds Current Meds: Current Medications Generic Name Dose Route Start Last Admin Trade Name Freq PRN Reason Stop Dose Admin Acetaminophen 1,000 mg 04/16/21 15:44 05/28/21 18:33 Acetaminophen 500 Mg Tablet PO 1,000 mg Q6H PRN Administration Pain or Fever > 38C (100.4F) Apixaban 5 mg 04/27/21 21:00 05/28/21 22:13 Apixaban 5 Mg Tablet PO 5 mg BID PHAN Administration Atorvastatin Calcium 40 mg 04/19/21 21:00 05/28/21 22:13 Atorvastatin 40 Mg Tablet PO 40 mg QPM PHAN Administration Carvedilol 3.125 mg 04/19/21 12:00 05/28/21 22:12 Carvedilol 3.125 Mg Tablet PO 3.125 mg BID PHAN Administration Cyclobenzaprine HCl 10 mg 05/18/21 20:14 05/29/21 02:21 Cyclobenzaprine 10 Mg Tablet PO 10 mg TID PRN Administration Spasms Docusate Sodium 250 - 500 mg 04/16/21 09:00 05/28/21 06:20 Docusate Sodium 250 Mg Capsule PO 250 mg DAILY PHAN Administration Finasteride 5 mg 04/17/21 21:00 05/28/21 22:12 Finasteride 5 Mg Tablet PO 5 mg BID PHAN Administration Ibuprofen 600 mg 05/19/21 08:03 05/29/21 02:21 Ibuprofen 600 Mg Tablet PO 600 mg Q6HR PRN Administration PAIN Levetiracetam 1,000 mg 05/05/21 22:00 05/28/21 22:12 Levetiracetam 250 Mg Tablet PO 1,000 mg BID PHAN Administration Lidocaine 1 patch 05/19/21 08:33 05/25/21 10:51 Lidocaine Patch 5% TOP 1 patch DAILY PRN Administration PAIN Lisinopril 10 mg 05/16/21 09:00 05/28/21 06:18 Lisinopril 20 Mg Tablet PO 10 mg DAILY PHAN Administration Magnesium Oxide 400 mg 05/14/21 12:00 05/28/21 06:21 Magnesium Oxide 400 Mg Tablet PO 400 mg DAILYWM PHAN Administration Multivitamins/Minerals 1 tab 04/18/21 12:00 05/28/21 06:22 Multivitamin W/Minerals Tablet PO 1 tab DAILYWM PHAN Administration Ondansetron HCl 4 mg 04/13/21 17:14 05/14/21 09:43 Ondansetron 4 Mg/2 Ml Vial IVP 4 mg Q6HR PRN Administration Nausea / Vomiting Oxcarbazepine 600 mg 05/09/21 21:00 05/28/21 22:12 Oxcarbazepine 150 Mg Tablet PO 600 mg BID PHAN Administration Polyethylene Glycol 17 gm 04/16/21 09:00 05/28/21 06:17 Polyethylene Glycol 3350 17 Gm Packet PO 17 gm DAILY PHAN Administration Potassium Chloride 10 meq 05/16/21 12:00 05/28/21 06:19 Potassium Chloride 10 Meq Capsule PO 10 meq DAILYWM PHAN Administration Senna 8.6 - 17.2 mg 04/16/21 09:00 05/28/21 06:20 Senna 8.6 Mg Tablet PO 8.6 mg DAILY PHAN Administration Sodium Chloride 10 ml 04/13/21 17:14 05/18/21 21:55 Sodium Chloride Flush 0.9% 10 Ml Syringe IVP 10 ml PRN PRN Administration NEEDED PER PROVIDER ORDERS Sodium Chloride 10 ml 04/14/21 01:00 05/29/21 00:28 Sodium Chloride Flush 0.9% 10 Ml Syringe IVP 10 ml 0100,0900,1700 PHAN Administration Tamsulosin HCl 0.4 mg 04/14/21 09:00 05/28/21 06:19 Tamsulosin 0.4 Mg Capsule PO 0.4 mg DAILY PHAN Administration Throat Lozenges 1 lozenge 05/19/21 01:20 05/22/21 09:10 Benzocaine/Menthol Lozenge MM 1 lozenge Q2HR PRN Administration Throat pain Witch Ivone/Glycerin 1 pad 05/21/21 22:42 05/21/21 23:01 Witch Ivone/Glycerin 1 Pad TOP 1 pad PRN PRN Administration ITCHING - Lab Result Fish Bone Diagrams: 05/24/21 09:00 05/24/21 09:00 Subjective - Subjective Patient Reports: Other (No change in patient's clinical status. He was resting comfortably in bed at time of exam. Worked well with physical therapy today but needed a lot of cueing to be able to ambulate with walker.) Objective Vital Signs: Vital Signs - 24 hr 05/28/21 05/28/21 05/28/21 16:00 22:12 23:49 Temperature 36.5 C 36.4 C L Heart Rate [ 77 73 71 Brachial] Respiratory 18 14 Rate Blood Pressure 126/78 125/66 [Right Brachial artery] Blood Pressure 116/56 L [Right Radial artery] O2 Saturation 98 97 05/29/21 07:56 Temperature Heart Rate [ 66 Brachial] Respiratory 14 Rate Blood Pressure [Right Brachial artery] Blood Pressure 117/49 L [Right Radial artery] O2 Saturation 97 Oxygen O2 Source Room air I&O (Last 24 Hrs): Intake and Output Totals x24h 05/27/21 05/28/21 05/29/21 23:59 23:59 23:59 Intake Total 1262 720 Output Total 1050 650 375 Balance 212 70 -375 Comments/Notes: General: Alert, No acute distress HEENT: PERRLA, EOMI Neck: Supple, No JVD Neuro: Alert, Disoriented (To place), Focal Deficits (Left arm weakness greater than left leg weakness. Residual deficits from previous CVA) Cardiovascular: Regular rate Respiratory: Chest non-tender, No respiratory distress, Wheezes Abdomen: Normal bowel sounds, Soft, No tenderness Extremities: No clubbing, No cyanosis, No edema, No tenderness/swelling Skin: No rashes, No breakdown, No significant lesion - Results Results: Laboratory Results WBC 7.5 x10^3/uL (4.8-10.8) 05/24/21 09:00 RBC 3.41 10^6/uL (4.70-6.10) L 05/24/21 09:00 Hgb 9.9 g/dL (14.0-18.0) L 05/24/21 09:00 Hct 29.5 % (42.0-52.0) L 05/24/21 09:00 MCV 86.5 fL (80.0-94.0) 05/24/21 09:00 MCH 29.0 pg (27.0-31.0) 05/24/21 09:00 MCHC 33.6 g/dL (32.0-36.0) 05/24/21 09:00 RDW 13.6 % (12.0-15.0) 05/24/21 09:00 Plt Count 265 10^3/uL (130-450) 05/24/21 09:00 MPV 8.9 fL (7.4-11.4) 05/24/21 09:00 Neut # (Auto) 5.5 10^3/uL (1.5-6.6) 05/24/21 09:00 Lymph # (Auto) 1.3 10^3/uL (1.5-3.5) L 05/24/21 09:00 [place] # (Auto) 0.5 10^3/uL (0.0-1.0) 05/24/21 09:00 Eos # (Auto) 0.1 10^3/uL (0.0-0.7) 05/24/21 09:00 Baso # (Auto) 0.1 10^3/uL (0.0-0.1) 05/24/21 09:00 Absolute Nucleated RBC 0.00 x10^3/uL 05/24/21 09:00 Total Counted 100 04/22/21 10:26 Band Neuts % (Manual) 1 % (0-10) 04/22/21 10:26 Abnorm Lymph % (Manual) 0 % 04/22/21 10:26 Nucleated RBC % 0.0 /100WBC 05/24/21 09:00 Neutrophils # (Manual) 37.9 10^3/uL (1.5-6.6) H 04/22/21 10:26 Lymphocytes # (Manual) 0.0 10^3/uL (1.5-3.5) L 04/22/21 10:26 Monocytes # (Manual) 0.8 10^3/uL (0.0-1.0) 04/22/21 10:26 Eosinophils # (Manual) 0.0 10^3/uL (0-0.7) 04/22/21 10:26 Basophils # (Manual) 0.0 10^3/uL (0-0.1) 04/22/21 10:26 Differential Comment MANUAL DIFFERENTIAL 04/22/21 10:26 WBC Morphology NORMAL APPEARANCE (NORMAL) 04/22/21 04:40 Platelet Estimate NORMAL (130-450,000) (NORMAL) 04/22/21 10:26 Platelet Morphology NORMAL APPEARANCE (NORMAL) 04/22/21 10:26 RBC Morph Micro Appear NORMAL APPEARANCE (NORMAL) 04/22/21 10:26 Sodium 127 mmol/L (135-145) L 05/24/21 09:00 Potassium 4.2 mmol/L (3.5-5.0) 05/24/21 09:00 Chloride 96 mmol/L (101-111) L 05/24/21 09:00 Carbon Dioxide 24 mmol/L (21-32) 05/24/21 09:00 Anion Gap 7.0 (6-13) 05/24/21 09:00 BUN 19 mg/dL (6-20) 05/24/21 09:00 Creatinine 0.8 mg/dL (0.6-1.2) 05/24/21 09:00 Estimated GFR (MDRD) 93 (>89) 05/24/21 09:00 Glucose 99 mg/dL (70-100) 05/24/21 09:00 POC Whole Bld Glucose 128 mg/dL (70 - 100) H 04/28/21 10:17 Calcium 8.7 mg/dL (8.5-10.3) 05/24/21 09:00 Magnesium 2.2 mg/dL (1.7-2.8) 05/18/21 06:57 Total Bilirubin 0.9 mg/dL (0.2-1.0) 05/24/21 09:00 AST 17 IU/L (10-42) 05/24/21 09:00 ALT 17 IU/L (10-60) 05/24/21 09:00 Alkaline Phosphatase 98 IU/L (42-121) 05/24/21 09:00 Troponin I High Sens 6.0 ng/L (2.3-19.7) 05/12/21 11:44 Total Protein 6.0 g/dL (6.7-8.2) L 05/24/21 09:00 Albumin 3.4 g/dL (3.2-5.5) 05/24/21 09:00 Globulin 2.6 g/dL (2.1-4.2) 05/24/21 09:00 Albumin/Globulin Ratio 1.3 (1.0-2.2) 05/24/21 09:00 Urine Color YELLOW 05/24/21 09:13 Urine Clarity CLEAR (CLEAR) 05/24/21 09:13 Urine pH 7.5 PH (5.0-7.5) 05/24/21 09:13 Ur Specific [place] 1.020 (1.002-1.030) 05/24/21 09:13 Urine Protein NEGATIVE mg/dL (NEGATIVE) 05/24/21 09:13 Urine Glucose (UA) NEGATIVE mg/dL (NEGATIVE) 05/24/21 09:13 Urine Ketones NEGATIVE mg/dL (NEGATIVE) 05/24/21 09:13 Urine Occult Blood SMALL (NEGATIVE) H 05/24/21 09:13 Urine Nitrite POSITIVE (NEGATIVE) H 05/24/21 09:13 Urine Bilirubin NEGATIVE (NEGATIVE) 05/24/21 09:13 Urine Urobilinogen 0.2 (NORMAL) E.U./dL (NORMAL) 05/24/21 09:13 Ur Leukocyte Esterase NEGATIVE (NEGATIVE) 05/24/21 09:13 Urine RBC 0-5 /HPF (0-5) 05/24/21 09:13 Urine WBC 0-3 /HPF (0-3) 05/24/21 09:13 Urine WBC Clumps NONE SEEN 05/24/21 09:13 Ur Squamous Epith Cells RARE Squamous (<= Few) 05/24/21 09:13 Amorphous Sediment Few /LPF 04/15/21 11:50 Urine Bacteria None Seen /HPF (None Seen) 05/24/21 09:13 Urine Mucus Moderate Strands 04/22/21 12:01 Urine Culture Comments INDICATED 05/24/21 09:13 Nasal Adenovirus (PCR) NOT DETECTED 04/13/21 16:48 Nasal B. parapertussis DNA (PCR) NOT DETECTED 04/13/21 16:48 Nasal Coronavir 229E PCR NOT DETECTED 04/13/21 16:48 Nasal Coronavir HKU1 PCR NOT DETECTED 04/13/21 16:48 Nasal Coronavir NL63 PCR NOT DETECTED 04/13/21 16:48 Nasal Coronavir OC43 PCR NOT DETECTED 04/13/21 16:48 Nasal Enterovir/Rhinovir PCR NOT DETECTED 04/13/21 16:48 Nasal Influenza B PCR NOT DETECTED 04/13/21 16:48 Nasal Influenza A PCR NOT DETECTED 04/13/21 16:48 Nasal Parainfluen 1 PCR NOT DETECTED 04/13/21 16:48 Nasal Parainfluen 2 PCR NOT DETECTED 04/13/21 16:48 Nasal Parainfluen 3 PCR NOT DETECTED 04/13/21 16:48 Nasal Parainfluen 4 PCR NOT DETECTED 04/13/21 16:48 Nasal RSV (PCR) NOT DETECTED 04/13/21 16:48 Nasal B.pertussis DNA PCR NOT DETECTED 04/13/21 16:48 Nasal C.pneumoniae (PCR) NOT DETECTED 04/13/21 16:48 Mian Human Metapneumo PCR NOT DETECTED 04/13/21 16:48 Nasal M.pneumoniae (PCR) NOT DETECTED 04/13/21 16:48 Nasal SARS-CoV-2 (PCR) NOT DETECTED 04/13/21 16:48 Levetiracetam 28.3 mcg/mL 04/25/21 12:24 Ethyl Alcohol < 5.0 mg/dL 04/13/21 13:10 ABX Reporting Has patient been on IV antibiotics over the past 48 hours?: No
[2021-05-29] MEDS: FINASTERIDE 5 MG TABLET PO SCH ×2 (08:30→21:37)
[2021-05-29] MEDS: APIXABAN 5 MG TABLET PO SCH ×2 (08:30→21:37)
[2021-05-29] MEDS: carvediloL 3.125 MG TABLET PO SCH ×2 (08:30→21:37)
[2021-05-29] MEDS: lisinopriL 20 MG TABLET PO SCH (08:30)
[2021-05-29] MEDS: SENNA 8.6 MG TABLET PO SCH (08:30)
[2021-05-29] MEDS: DOCUSATE SODIUM 250 MG CAPSULE PO SCH (08:30)
[2021-05-29] MEDS: polyethylene glycoL 3350 17 GM PACKET PO SCH (08:30)
[2021-05-29] MEDS: levETIRAcetam 250 MG TABLET PO SCH ×2 (08:30→21:37)
[2021-05-29] MEDS: TAMSULOSIN 0.4 MG CAPSULE PO SCH (08:31)
[2021-05-29] MEDS: ATORVASTATIN 40 MG TABLET PO SCH (21:37)
[2021-05-29] MEDS: OXcarbazepine 150 MG TABLET PO SCH (21:37)
[2021-05-30] MEDS: SODIUM CHLORIDE FLUSH 0.9% 10 ML SYRINGE IVP SCH ×3 (00:52→17:00)
--- NOTE | 2021-05-30 07:04 | PROVIDER PROGRESS NOTE ---
Assessment/Plan - Problem List (1) Seizure as late effect of cerebrovascular accident (CVA) Assessment/Plan: On Trileptal and Keppra. While patient has not had another grand mal seizure in the while, he occa sionally experiences left arm shaking and left-sided neglect. He is currently medically optimized. He has been evaluated by physical therapy and SNF was recommended. Social work is working on getting placement for him. Upon discharge the patient would be expected to follow-up with [facility] epilepsy clinic. (2) Afib Assessment/Plan: Rate controlled on carvedilol. He is also on Eliquis. (3) BPH (benign prostatic hyperplasia) Assessment/Plan: Flomax and finasteride. He also has a chronic Rodriguez catheter. - Current Meds Current Meds: Current Medications Generic Name Dose Route Start Last Admin Trade Name Freq PRN Reason Stop Dose Admin Acetaminophen 1,000 mg 04/16/21 15:44 05/28/21 18:33 Acetaminophen 500 Mg Tablet PO 1,000 mg Q6H PRN Administration Pain or Fever > 38C (100.4F) Apixaban 5 mg 04/27/21 21:00 05/29/21 21:37 Apixaban 5 Mg Tablet PO 5 mg BID PHAN Administration Atorvastatin Calcium 40 mg 04/19/21 21:00 05/29/21 21:37 Atorvastatin 40 Mg Tablet PO 40 mg QPM PHAN Administration Carvedilol 3.125 mg 04/19/21 12:00 05/29/21 21:37 Carvedilol 3.125 Mg Tablet PO 3.125 mg BID PHAN Administration Cyclobenzaprine HCl 10 mg 05/18/21 20:14 05/29/21 21:36 Cyclobenzaprine 10 Mg Tablet PO 10 mg TID PRN Administration Spasms Docusate Sodium 250 - 500 mg 04/16/21 09:00 05/29/21 08:30 Docusate Sodium 250 Mg Capsule PO 250 mg DAILY PHAN Administration Finasteride 5 mg 04/17/21 21:00 05/29/21 21:37 Finasteride 5 Mg Tablet PO 5 mg BID PHAN Administration Ibuprofen 600 mg 05/19/21 08:03 05/29/21 21:37 Ibuprofen 600 Mg Tablet PO 600 mg Q6HR PRN Administration PAIN Levetiracetam 1,000 mg 05/05/21 22:00 05/29/21 21:37 Levetiracetam 250 Mg Tablet PO 1,000 mg BID PHAN Administration Lidocaine 1 patch 05/19/21 08:33 05/25/21 10:51 Lidocaine Patch 5% TOP 1 patch DAILY PRN Administration PAIN Lisinopril 10 mg 05/16/21 09:00 05/29/21 08:30 Lisinopril 20 Mg Tablet PO 10 mg DAILY PHAN Administration Magnesium Oxide 400 mg 05/14/21 12:00 05/29/21 08:29 Magnesium Oxide 400 Mg Tablet PO 400 mg DAILYWM PHAN Administration Multivitamins/Minerals 1 tab 04/18/21 12:00 05/29/21 08:29 Multivitamin W/Minerals Tablet PO 1 tab DAILYWM PHAN Administration Ondansetron HCl 4 mg 04/13/21 17:14 05/14/21 09:43 Ondansetron 4 Mg/2 Ml Vial IVP 4 mg Q6HR PRN Administration Nausea / Vomiting Oxcarbazepine 600 mg 05/09/21 21:00 05/29/21 21:37 Oxcarbazepine 150 Mg Tablet PO 600 mg BID PHAN Administration Polyethylene Glycol 17 gm 04/16/21 09:00 05/29/21 08:30 Polyethylene Glycol 3350 17 Gm Packet PO 17 gm DAILY PHAN Administration Potassium Chloride 10 meq 05/16/21 12:00 05/29/21 08:29 Potassium Chloride 10 Meq Capsule PO 10 meq DAILYWM PHAN Administration Senna 8.6 - 17.2 mg 04/16/21 09:00 05/29/21 08:30 Senna 8.6 Mg Tablet PO 8.6 mg DAILY PHAN Administration Sodium Chloride 10 ml 04/13/21 17:14 05/18/21 21:55 Sodium Chloride Flush 0.9% 10 Ml Syringe IVP 10 ml PRN PRN Administration NEEDED PER PROVIDER ORDERS Sodium Chloride 10 ml 04/14/21 01:00 05/30/21 00:52 Sodium Chloride Flush 0.9% 10 Ml Syringe IVP 10 ml 0100,0900,1700 PHAN Administration Tamsulosin HCl 0.4 mg 04/14/21 09:00 05/29/21 08:31 Tamsulosin 0.4 Mg Capsule PO 0.4 mg DAILY PHAN Administration Throat Lozenges 1 lozenge 05/19/21 01:20 05/22/21 09:10 Benzocaine/Menthol Lozenge MM 1 lozenge Q2HR PRN Administration Throat pain Witch Ivone/Glycerin 1 pad 05/21/21 22:42 05/21/21 23:01 Witch Ivone/Glycerin 1 Pad TOP 1 pad PRN PRN Administration ITCHING - Lab Result Fish Bone Diagrams: 05/24/21 09:00 05/24/21 09:00 - Additional Planning My Orders: My Active Orders 05/31/21 05:00 BMP - BASIC METABOLIC PANEL [CHEM] DAILYLAB CBC - COMP BLD CT W/AUTO DIFF [HEME] DAILYLAB Subjective - Subjective Patient Reports: Other (No change in patient's clinical status.) Objective Vital Signs: Vital Signs - 24 hr 05/29/21 05/29/21 05/29/21 07:56 16:00 23:42 Temperature 36.3 C L 36.3 C L Heart Rate [ 66 80 70 Brachial] Respiratory 14 16 16 Rate Blood Pressure 125/88 H [Right Brachial artery] Blood Pressure 117/49 L 117/52 L [Right Radial artery] O2 Saturation 97 97 97 Oxygen O2 Source Room air I&O (Last 24 Hrs): Intake and Output Totals x24h 05/28/21 05/29/21 05/30/21 23:59 23:59 23:59 Intake Total 720 780 0 Output Total 650 850 325 Balance 70 -70 -325 Comments/Notes: General: Alert, No acute distress HEENT: PERRLA, EOMI Neck: Supple, No JVD Neuro: Alert, Disoriented (To place), Focal Deficits (Left arm weakness greater than left leg weakness. Residual deficits from previous CVA) Cardiovascular: Regular rate Respiratory: Chest non-tender, No respiratory distress, Wheezes Abdomen: Normal bowel sounds, Soft, No tenderness Extremities: No clubbing, No cyanosis, No edema, No tenderness/swelling Skin: No rashes, No breakdown, No significant lesion - Results Results: Laboratory Results WBC 7.5 x10^3/uL (4.8-10.8) 05/24/21 09:00 RBC 3.41 10^6/uL (4.70-6.10) L 05/24/21 09:00 Hgb 9.9 g/dL (14.0-18.0) L 05/24/21 09:00 Hct 29.5 % (42.0-52.0) L 05/24/21 09:00 MCV 86.5 fL (80.0-94.0) 05/24/21 09:00 MCH 29.0 pg (27.0-31.0) 05/24/21 09:00 MCHC 33.6 g/dL (32.0-36.0) 05/24/21 09:00 RDW 13.6 % (12.0-15.0) 05/24/21 09:00 Plt Count 265 10^3/uL (130-450) 05/24/21 09:00 MPV 8.9 fL (7.4-11.4) 05/24/21 09:00 Neut # (Auto) 5.5 10^3/uL (1.5-6.6) 05/24/21 09:00 Lymph # (Auto) 1.3 10^3/uL (1.5-3.5) L 05/24/21 09:00 [place] # (Auto) 0.5 10^3/uL (0.0-1.0) 05/24/21 09:00 Eos # (Auto) 0.1 10^3/uL (0.0-0.7) 05/24/21 09:00 Baso # (Auto) 0.1 10^3/uL (0.0-0.1) 05/24/21 09:00 Absolute Nucleated RBC 0.00 x10^3/uL 05/24/21 09:00 Total Counted 100 04/22/21 10:26 Band Neuts % (Manual) 1 % (0-10) 04/22/21 10:26 Abnorm Lymph % (Manual) 0 % 04/22/21 10:26 Nucleated RBC % 0.0 /100WBC 05/24/21 09:00 Neutrophils # (Manual) 37.9 10^3/uL (1.5-6.6) H 04/22/21 10:26 Lymphocytes # (Manual) 0.0 10^3/uL (1.5-3.5) L 04/22/21 10:26 Monocytes # (Manual) 0.8 10^3/uL (0.0-1.0) 04/22/21 10:26 Eosinophils # (Manual) 0.0 10^3/uL (0-0.7) 04/22/21 10:26 Basophils # (Manual) 0.0 10^3/uL (0-0.1) 04/22/21 10:26 Differential Comment MANUAL DIFFERENTIAL 04/22/21 10:26 WBC Morphology NORMAL APPEARANCE (NORMAL) 04/22/21 04:40 Platelet Estimate NORMAL (130-450,000) (NORMAL) 04/22/21 10:26 Platelet Morphology NORMAL APPEARANCE (NORMAL) 04/22/21 10:26 RBC Morph Micro Appear NORMAL APPEARANCE (NORMAL) 04/22/21 10:26 Sodium 127 mmol/L (135-145) L 05/24/21 09:00 Potassium 4.2 mmol/L (3.5-5.0) 05/24/21 09:00 Chloride 96 mmol/L (101-111) L 05/24/21 09:00 Carbon Dioxide 24 mmol/L (21-32) 05/24/21 09:00 Anion Gap 7.0 (6-13) 05/24/21 09:00 BUN 19 mg/dL (6-20) 05/24/21 09:00 Creatinine 0.8 mg/dL (0.6-1.2) 05/24/21 09:00 Estimated GFR (MDRD) 93 (>89) 05/24/21 09:00 Glucose 99 mg/dL (70-100) 05/24/21 09:00 POC Whole Bld Glucose 128 mg/dL (70 - 100) H 04/28/21 10:17 Calcium 8.7 mg/dL (8.5-10.3) 05/24/21 09:00 Magnesium 2.2 mg/dL (1.7-2.8) 05/18/21 06:57 Total Bilirubin 0.9 mg/dL (0.2-1.0) 05/24/21 09:00 AST 17 IU/L (10-42) 05/24/21 09:00 ALT 17 IU/L (10-60) 05/24/21 09:00 Alkaline Phosphatase 98 IU/L (42-121) 05/24/21 09:00 Troponin I High Sens 6.0 ng/L (2.3-19.7) 05/12/21 11:44 Total Protein 6.0 g/dL (6.7-8.2) L 05/24/21 09:00 Albumin 3.4 g/dL (3.2-5.5) 05/24/21 09:00 Globulin 2.6 g/dL (2.1-4.2) 05/24/21 09:00 Albumin/Globulin Ratio 1.3 (1.0-2.2) 05/24/21 09:00 Urine Color YELLOW 05/24/21 09:13 Urine Clarity CLEAR (CLEAR) 05/24/21 09:13 Urine pH 7.5 PH (5.0-7.5) 05/24/21 09:13 Ur Specific [place] 1.020 (1.002-1.030) 05/24/21 09:13 Urine Protein NEGATIVE mg/dL (NEGATIVE) 05/24/21 09:13 Urine Glucose (UA) NEGATIVE mg/dL (NEGATIVE) 05/24/21 09:13 Urine Ketones NEGATIVE mg/dL (NEGATIVE) 05/24/21 09:13 Urine Occult Blood SMALL (NEGATIVE) H 05/24/21 09:13 Urine Nitrite POSITIVE (NEGATIVE) H 05/24/21 09:13 Urine Bilirubin NEGATIVE (NEGATIVE) 05/24/21 09:13 Urine Urobilinogen 0.2 (NORMAL) E.U./dL (NORMAL) 05/24/21 09:13 Ur Leukocyte Esterase NEGATIVE (NEGATIVE) 05/24/21 09:13 Urine RBC 0-5 /HPF (0-5) 05/24/21 09:13 Urine WBC 0-3 /HPF (0-3) 05/24/21 09:13 Urine WBC Clumps NONE SEEN 05/24/21 09:13 Ur Squamous Epith Cells RARE Squamous (<= Few) 05/24/21 09:13 Amorphous Sediment Few /LPF 04/15/21 11:50 Urine Bacteria None Seen /HPF (None Seen) 05/24/21 09:13 Urine Mucus Moderate Strands 04/22/21 12:01 Urine Culture Comments INDICATED 05/24/21 09:13 Nasal Adenovirus (PCR) NOT DETECTED 04/13/21 16:48 Nasal B. parapertussis DNA (PCR) NOT DETECTED 04/13/21 16:48 Nasal Coronavir 229E PCR NOT DETECTED 04/13/21 16:48 Nasal Coronavir HKU1 PCR NOT DETECTED 04/13/21 16:48 Nasal Coronavir NL63 PCR NOT DETECTED 04/13/21 16:48 Nasal Coronavir OC43 PCR NOT DETECTED 04/13/21 16:48 Nasal Enterovir/Rhinovir PCR NOT DETECTED 04/13/21 16:48 Nasal Influenza B PCR NOT DETECTED 04/13/21 16:48 Nasal Influenza A PCR NOT DETECTED 04/13/21 16:48 Nasal Parainfluen 1 PCR NOT DETECTED 04/13/21 16:48 Nasal Parainfluen 2 PCR NOT DETECTED 04/13/21 16:48 Nasal Parainfluen 3 PCR NOT DETECTED 04/13/21 16:48 Nasal Parainfluen 4 PCR NOT DETECTED 04/13/21 16:48 Nasal RSV (PCR) NOT DETECTED 04/13/21 16:48 Nasal B.pertussis DNA PCR NOT DETECTED 04/13/21 16:48 Nasal C.pneumoniae (PCR) NOT DETECTED 04/13/21 16:48 Mian Human Metapneumo PCR NOT DETECTED 04/13/21 16:48 Nasal M.pneumoniae (PCR) NOT DETECTED 04/13/21 16:48 Nasal SARS-CoV-2 (PCR) NOT DETECTED 04/13/21 16:48 Levetiracetam 28.3 mcg/mL 04/25/21 12:24 Ethyl Alcohol < 5.0 mg/dL 04/13/21 13:10 ABX Reporting Has patient been on IV antibiotics over the past 48 hours?: No
[2021-05-30] MEDS: levETIRAcetam 250 MG TABLET PO SCH ×2 (10:28→21:12)
[2021-05-30] MEDS: TAMSULOSIN 0.4 MG CAPSULE PO SCH (10:29)
[2021-05-30] MEDS: MULTIVITAMIN W/MINERALS TABLET PO SCH (10:29)
[2021-05-30] MEDS: DOCUSATE SODIUM 250 MG CAPSULE PO SCH (10:29)
[2021-05-30] MEDS: SENNA 8.6 MG TABLET PO SCH (10:29)
[2021-05-30] MEDS: MAGNESIUM OXIDE 400 MG TABLET PO SCH (10:29)
[2021-05-30] MEDS: polyethylene glycoL 3350 17 GM PACKET PO SCH (10:30)
[2021-05-30] MEDS: OXcarbazepine 150 MG TABLET PO SCH ×2 (10:30→21:11)
[2021-05-30] MEDS: FINASTERIDE 5 MG TABLET PO SCH ×2 (10:30→21:11)
[2021-05-30] MEDS: carvediloL 3.125 MG TABLET PO SCH ×2 (10:43→21:12)
[2021-05-30] MEDS: lisinopriL 20 MG TABLET PO SCH (10:43)
[2021-05-30] MEDS: POTASSIUM CHLORIDE 10 MEQ CAPSULE PO SCH (10:47)
[2021-05-30] MEDS: APIXABAN 5 MG TABLET PO SCH ×2 (10:47→21:12)
[2021-05-30] MEDS: IBUPROFEN 600 MG TABLET PO PRN ×2 (13:31→21:12)
[2021-05-30] MEDS: CYCLOBENZAPRINE 10 MG TABLET PO PRN (17:02)
[2021-05-30] MEDS: ACETAMINOPHEN 500 MG TABLET PO PRN (17:02)
[2021-05-30] MEDS: ATORVASTATIN 40 MG TABLET PO SCH (21:11)
[2021-05-31] MEDS: SODIUM CHLORIDE FLUSH 0.9% 10 ML SYRINGE IVP SCH ×2 (05:46→14:26)
[2021-05-31 06:30] LABS: BASOPHILS # (AUTO) 0.1 10^3/uL (0.0-0.1); BASOPHILS % (AUTO) 1.6 %; EOSINOPHILS # (AUTO) 0.1 10^3/uL (0.0-0.7); EOSINOPHILS % (AUTO) 1.8 %; HCT - HEMATOCRIT 29.3 % (42.0-52.0); HGB - HEMOGLOBIN 9.6 g/dL (14.0-18.0); LYMPHOCYTES # (AUTO) 1.6 10^3/uL (1.5-3.5); LYMPHOCYTES % (AUTO) 26.3 %; MEAN CORPUSCULAR HGB CONC 32.8 g/dL (32.0-36.0); MEAN CORPUSCULAR VOLUME 88.5 fL (80.0-94.0); MEAN PLATELET VOLUME 8.8 fL (7.4-11.4); MONOCYTES # (AUTO) 0.6 10^3/uL (0.0-1.0); MONOCYTES % (AUTO) 8.9 %; NEUTROPHILS # (AUTO) 3.8 10^3/uL (1.5-6.6); NEUTROPHILS % (AUTO) 61.1 %; PLT - PLATELET COUNT 263 10^3/uL (130-450); RED BLOOD COUNT 3.31 10^6/uL (4.70-6.10); RED CELL DISTRIBUTION WIDTH 14.1 % (12.0-15.0); WHITE BLOOD COUNT 6.2 x10^3/uL (4.8-10.8)
[2021-05-31 06:40] LABS: CALCIUM 8.7 mg/dL (8.5-10.3); POTASSIUM 4.3 mmol/L (3.5-5.0)
--- NOTE | 2021-05-31 07:44 | PROVIDER PROGRESS NOTE ---
Assessment/Plan - Problem List (1) Seizure as late effect of cerebrovascular accident (CVA) Assessment/Plan: On Trileptal and Keppra. While patient has not had another grand mal seizure in the while, he occa sionally experiences left arm shaking and left-sided neglect. He is currently medically optimized. He has been evaluated by physical therapy and SNF was recommended. Social work is working on getting placement for him. Upon discharge the patient would be expected to follow-up with [facility] epilepsy clinic. (2) Afib Assessment/Plan: Rate controlled on carvedilol. He is also on Eliquis. (3) BPH (benign prostatic hyperplasia) Assessment/Plan: Flomax and finasteride. He also has a chronic Rodriguez catheter. - Current Meds Current Meds: Current Medications Generic Name Dose Route Start Last Admin Trade Name Freq PRN Reason Stop Dose Admin Acetaminophen 1,000 mg 04/16/21 15:44 05/30/21 17:02 Acetaminophen 500 Mg Tablet PO 1,000 mg Q6H PRN Administration Pain or Fever > 38C (100.4F) Apixaban 5 mg 04/27/21 21:00 05/30/21 21:12 Apixaban 5 Mg Tablet PO 5 mg BID PHAN Administration Atorvastatin Calcium 40 mg 04/19/21 21:00 05/30/21 21:11 Atorvastatin 40 Mg Tablet PO 40 mg QPM PHAN Administration Carvedilol 3.125 mg 04/19/21 12:00 05/30/21 21:12 Carvedilol 3.125 Mg Tablet PO 3.125 mg BID PHAN Administration Cyclobenzaprine HCl 10 mg 05/18/21 20:14 05/30/21 17:02 Cyclobenzaprine 10 Mg Tablet PO 10 mg TID PRN Administration Spasms Docusate Sodium 250 - 500 mg 04/16/21 09:00 05/30/21 10:29 Docusate Sodium 250 Mg Capsule PO 250 mg DAILY PHAN Administration Finasteride 5 mg 04/17/21 21:00 05/30/21 21:11 Finasteride 5 Mg Tablet PO 5 mg BID PHAN Administration Ibuprofen 600 mg 05/19/21 08:03 05/30/21 21:12 Ibuprofen 600 Mg Tablet PO 600 mg Q6HR PRN Administration PAIN Levetiracetam 1,000 mg 05/05/21 22:00 05/30/21 21:12 Levetiracetam 250 Mg Tablet PO 1,000 mg BID PHAN Administration Lidocaine 1 patch 05/19/21 08:33 05/25/21 10:51 Lidocaine Patch 5% TOP 1 patch DAILY PRN Administration PAIN Lisinopril 10 mg 05/16/21 09:00 05/30/21 10:43 Lisinopril 20 Mg Tablet PO 10 mg DAILY PHAN Administration Magnesium Oxide 400 mg 05/14/21 12:00 05/30/21 10:29 Magnesium Oxide 400 Mg Tablet PO 400 mg DAILYWM PHAN Administration Multivitamins/Minerals 1 tab 04/18/21 12:00 05/30/21 10:29 Multivitamin W/Minerals Tablet PO 1 tab DAILYWM PHAN Administration Ondansetron HCl 4 mg 04/13/21 17:14 05/14/21 09:43 Ondansetron 4 Mg/2 Ml Vial IVP 4 mg Q6HR PRN Administration Nausea / Vomiting Oxcarbazepine 600 mg 05/09/21 21:00 05/30/21 21:11 Oxcarbazepine 150 Mg Tablet PO 600 mg BID PHAN Administration Polyethylene Glycol 17 gm 04/16/21 09:00 05/30/21 10:30 Polyethylene Glycol 3350 17 Gm Packet PO 17 gm DAILY PHAN Administration Potassium Chloride 10 meq 05/16/21 12:00 05/30/21 10:47 Potassium Chloride 10 Meq Capsule PO 10 meq DAILYWM PHAN Administration Senna 8.6 - 17.2 mg 04/16/21 09:00 05/30/21 10:29 Senna 8.6 Mg Tablet PO 8.6 mg DAILY PHAN Administration Sodium Chloride 10 ml 04/13/21 17:14 05/18/21 21:55 Sodium Chloride Flush 0.9% 10 Ml Syringe IVP 10 ml PRN PRN Administration NEEDED PER PROVIDER ORDERS Sodium Chloride 10 ml 04/14/21 01:00 05/31/21 05:46 Sodium Chloride Flush 0.9% 10 Ml Syringe IVP Not Given 0100,0900,1700 PHAN Tamsulosin HCl 0.4 mg 04/14/21 09:00 05/30/21 10:29 Tamsulosin 0.4 Mg Capsule PO 0.4 mg DAILY PHAN Administration Throat Lozenges 1 lozenge 05/19/21 01:20 05/22/21 09:10 Benzocaine/Menthol Lozenge MM 1 lozenge Q2HR PRN Administration Throat pain Witch Ivone/Glycerin 1 pad 05/21/21 22:42 05/21/21 23:01 Witch Ivone/Glycerin 1 Pad TOP 1 pad PRN PRN Administration ITCHING - Lab Result Fish Bone Diagrams: 05/31/21 06:05 05/31/21 06:05 Subjective - Subjective Patient Reports: Other (No change in patient's clinical status.) Objective Vital Signs: Vital Signs - 24 hr 05/30/21 05/30/21 05/30/21 08:00 10:40 15:45 Temperature 36.3 C L 36.8 C Heart Rate [ 73 73 81 Brachial] Respiratory 20 16 Rate Blood Pressure 126/94 H [Left Brachial artery] Blood Pressure 93/58 L 139/67 H [Right Brachial artery] Blood Pressure [Right Radial artery] O2 Saturation 100 98 05/30/21 05/31/21 23:38 07:23 Temperature 36.3 C L 36.4 C L Heart Rate [ 76 74 Brachial] Respiratory 20 20 Rate Blood Pressure [Left Brachial artery] Blood Pressure [Right Brachial artery] Blood Pressure 124/62 94/55 L [Right Radial artery] O2 Saturation 97 100 Oxygen O2 Source Room air I&O (Last 24 Hrs): Intake and Output Totals x24h 05/29/21 05/30/21 05/31/21 23:59 23:59 23:59 Intake Total 780 597 140 Output Total 850 900 325 Balance -30 -816 -612 Comments/Notes: General: Alert, No acute distress HEENT: PERRLA, EOMI Neck: Supple, No JVD Neuro: Alert, Disoriented (To place), Focal Deficits (Left arm weakness greater than left leg weakness. Residual deficits from previous CVA) Cardiovascular: Regular rate Respiratory: Chest non-tender, No respiratory distress, Wheezes Abdomen: Normal bowel sounds, Soft, No tenderness Extremities: No clubbing, No cyanosis, No edema, No tenderness/swelling Skin: No rashes, No breakdown, No significant lesion - Results Results: Laboratory Results WBC 6.2 x10^3/uL (4.8-10.8) 05/31/21 06:05 RBC 3.31 10^6/uL (4.70-6.10) L 05/31/21 06:05 Hgb 9.6 g/dL (14.0-18.0) L 05/31/21 06:05 Hct 29.3 % (42.0-52.0) L 05/31/21 06:05 MCV 88.5 fL (80.0-94.0) 05/31/21 06:05 MCH 29.0 pg (27.0-31.0) 05/31/21 06:05 MCHC 32.8 g/dL (32.0-36.0) 05/31/21 06:05 RDW 14.1 % (12.0-15.0) 05/31/21 06:05 Plt Count 263 10^3/uL (130-450) 05/31/21 06:05 MPV 8.8 fL (7.4-11.4) 05/31/21 06:05 Neut # (Auto) 3.8 10^3/uL (1.5-6.6) 05/31/21 06:05 Lymph # (Auto) 1.6 10^3/uL (1.5-3.5) 05/31/21 06:05 [place] # (Auto) 0.6 10^3/uL (0.0-1.0) 05/31/21 06:05 Eos # (Auto) 0.1 10^3/uL (0.0-0.7) 05/31/21 06:05 Baso # (Auto) 0.1 10^3/uL (0.0-0.1) 05/31/21 06:05 Absolute Nucleated RBC 0.00 x10^3/uL 05/31/21 06:05 Total Counted 100 04/22/21 10:26 Band Neuts % (Manual) 1 % (0-10) 04/22/21 10:26 Abnorm Lymph % (Manual) 0 % 04/22/21 10:26 Nucleated RBC % 0.0 /100WBC 05/31/21 06:05 Neutrophils # (Manual) 37.9 10^3/uL (1.5-6.6) H 04/22/21 10:26 Lymphocytes # (Manual) 0.0 10^3/uL (1.5-3.5) L 04/22/21 10:26 Monocytes # (Manual) 0.8 10^3/uL (0.0-1.0) 04/22/21 10:26 Eosinophils # (Manual) 0.0 10^3/uL (0-0.7) 04/22/21 10:26 Basophils # (Manual) 0.0 10^3/uL (0-0.1) 04/22/21 10:26 Differential Comment MANUAL DIFFERENTIAL 04/22/21 10:26 WBC Morphology NORMAL APPEARANCE (NORMAL) 04/22/21 04:40 Platelet Estimate NORMAL (130-450,000) (NORMAL) 04/22/21 10:26 Platelet Morphology NORMAL APPEARANCE (NORMAL) 04/22/21 10:26 RBC Morph Micro Appear NORMAL APPEARANCE (NORMAL) 04/22/21 10:26 Sodium 129 mmol/L (135-145) L 05/31/21 06:05 Potassium 4.3 mmol/L (3.5-5.0) 05/31/21 06:05 Chloride 95 mmol/L (101-111) L 05/31/21 06:05 Carbon Dioxide 26 mmol/L (21-32) 05/31/21 06:05 Anion Gap 8.0 (6-13) 05/31/21 06:05 BUN 23 mg/dL (6-20) H 05/31/21 06:05 Creatinine 1.0 mg/dL (0.6-1.2) 05/31/21 06:05 Estimated GFR (MDRD) 72 (>89) L 05/31/21 06:05 Glucose 91 mg/dL (70-100) 05/31/21 06:05 POC Whole Bld Glucose 128 mg/dL (70 - 100) H 04/28/21 10:17 Calcium 8.7 mg/dL (8.5-10.3) 05/31/21 06:05 Magnesium 2.2 mg/dL (1.7-2.8) 05/18/21 06:57 Total Bilirubin 0.9 mg/dL (0.2-1.0) 05/24/21 09:00 AST 17 IU/L (10-42) 05/24/21 09:00 ALT 17 IU/L (10-60) 05/24/21 09:00 Alkaline Phosphatase 98 IU/L (42-121) 05/24/21 09:00 Troponin I High Sens 6.0 ng/L (2.3-19.7) 05/12/21 11:44 Total Protein 6.0 g/dL (6.7-8.2) L 05/24/21 09:00 Albumin 3.4 g/dL (3.2-5.5) 05/24/21 09:00 Globulin 2.6 g/dL (2.1-4.2) 05/24/21 09:00 Albumin/Globulin Ratio 1.3 (1.0-2.2) 05/24/21 09:00 Urine Color YELLOW 05/24/21 09:13 Urine Clarity CLEAR (CLEAR) 05/24/21 09:13 Urine pH 7.5 PH (5.0-7.5) 05/24/21 09:13 Ur Specific [place] 1.020 (1.002-1.030) 05/24/21 09:13 Urine Protein NEGATIVE mg/dL (NEGATIVE) 05/24/21 09:13 Urine Glucose (UA) NEGATIVE mg/dL (NEGATIVE) 05/24/21 09:13 Urine Ketones NEGATIVE mg/dL (NEGATIVE) 05/24/21 09:13 Urine Occult Blood SMALL (NEGATIVE) H 05/24/21 09:13 Urine Nitrite POSITIVE (NEGATIVE) H 05/24/21 09:13 Urine Bilirubin NEGATIVE (NEGATIVE) 05/24/21 09:13 Urine Urobilinogen 0.2 (NORMAL) E.U./dL (NORMAL) 05/24/21 09:13 Ur Leukocyte Esterase NEGATIVE (NEGATIVE) 05/24/21 09:13 Urine RBC 0-5 /HPF (0-5) 05/24/21 09:13 Urine WBC 0-3 /HPF (0-3) 05/24/21 09:13 Urine WBC Clumps NONE SEEN 05/24/21 09:13 Ur Squamous Epith Cells RARE Squamous (<= Few) 05/24/21 09:13 Amorphous Sediment Few /LPF 04/15/21 11:50 Urine Bacteria None Seen /HPF (None Seen) 05/24/21 09:13 Urine Mucus Moderate Strands 04/22/21 12:01 Urine Culture Comments INDICATED 05/24/21 09:13 Nasal Adenovirus (PCR) NOT DETECTED 04/13/21 16:48 Nasal B. parapertussis DNA (PCR) NOT DETECTED 04/13/21 16:48 Nasal Coronavir 229E PCR NOT DETECTED 04/13/21 16:48 Nasal Coronavir HKU1 PCR NOT DETECTED 04/13/21 16:48 Nasal Coronavir NL63 PCR NOT DETECTED 04/13/21 16:48 Nasal Coronavir OC43 PCR NOT DETECTED 04/13/21 16:48 Nasal Enterovir/Rhinovir PCR NOT DETECTED 04/13/21 16:48 Nasal Influenza B PCR NOT DETECTED 04/13/21 16:48 Nasal Influenza A PCR NOT DETECTED 04/13/21 16:48 Nasal Parainfluen 1 PCR NOT DETECTED 04/13/21 16:48 Nasal Parainfluen 2 PCR NOT DETECTED 04/13/21 16:48 Nasal Parainfluen 3 PCR NOT DETECTED 04/13/21 16:48 Nasal Parainfluen 4 PCR NOT DETECTED 04/13/21 16:48 Nasal RSV (PCR) NOT DETECTED 04/13/21 16:48 Nasal B.pertussis DNA PCR NOT DETECTED 04/13/21 16:48 Nasal C.pneumoniae (PCR) NOT DETECTED 04/13/21 16:48 Mian Human Metapneumo PCR NOT DETECTED 04/13/21 16:48 Nasal M.pneumoniae (PCR) NOT DETECTED 04/13/21 16:48 Nasal SARS-CoV-2 (PCR) NOT DETECTED 04/13/21 16:48 Levetiracetam 28.3 mcg/mL 04/25/21 12:24 Ethyl Alcohol < 5.0 mg/dL 04/13/21 13:10
[2021-05-31] MEDS: levETIRAcetam 250 MG TABLET PO SCH ×2 (09:00→22:48)
[2021-05-31] MEDS: OXcarbazepine 150 MG TABLET PO SCH ×2 (09:05→22:46)
[2021-05-31] MEDS: MAGNESIUM OXIDE 400 MG TABLET PO SCH (09:06)
[2021-05-31] MEDS: APIXABAN 5 MG TABLET PO SCH ×2 (09:06→22:48)
[2021-05-31] MEDS: FINASTERIDE 5 MG TABLET PO SCH ×2 (09:07→22:47)
[2021-05-31] MEDS: carvediloL 3.125 MG TABLET PO SCH ×2 (09:07→22:48)
[2021-05-31] MEDS: SENNA 8.6 MG TABLET PO SCH (09:07)
[2021-05-31] MEDS: lisinopriL 20 MG TABLET PO SCH (09:08)
[2021-05-31] MEDS: POTASSIUM CHLORIDE 10 MEQ CAPSULE PO SCH (09:09)
[2021-05-31] MEDS: DOCUSATE SODIUM 250 MG CAPSULE PO SCH (09:09)
[2021-05-31] MEDS: MULTIVITAMIN W/MINERALS TABLET PO SCH (09:10)
[2021-05-31] MEDS: TAMSULOSIN 0.4 MG CAPSULE PO SCH (09:10)
[2021-05-31] MEDS: polyethylene glycoL 3350 17 GM PACKET PO SCH (12:15)
[2021-05-31] MEDS ORDERED: ONDANSETRON 4 MG/2 ML VIAL IVP PRN (16:16)
[2021-05-31] MEDS ORDERED: ACETAMINOPHEN 500 MG TABLET PO PRN (16:17)
[2021-05-31] MEDS ORDERED: BENZOCAINE/MENTHOL LOZENGE MM PRN (16:19)
[2021-05-31] MEDS ORDERED: CYCLOBENZAPRINE 10 MG TABLET PO PRN (16:19)
[2021-05-31] MEDS ORDERED: LIDOCAINE PATCH 5% TOP PRN (16:20)
[2021-05-31] MEDS ORDERED: IBUPROFEN 600 MG TABLET PO PRN (16:20)
[2021-05-31] MEDS ORDERED: WITCH HAZEL/GLYCERIN 1 PAD TOP PRN (16:20)
[2021-05-31] MEDS ORDERED: ZINC OXIDE 20% OINT 30 GM TUBE TOP PRN (16:20)
[2021-05-31] MEDS: ATORVASTATIN 40 MG TABLET PO SCH (22:49)
--- NOTE | 2021-06-01 07:30 | PROVIDER PROGRESS NOTE ---
Assessment/Plan - Problem List (1) Seizure as late effect of cerebrovascular accident (CVA) Assessment/Plan: On Trileptal and Keppra. While patient has not had another grand mal seizure in the while, he occa sionally experiences left arm shaking and left-sided neglect. He is currently medically optimized. He has been evaluated by physical therapy and SNF was recommended. Social work is working on getting placement for him. Upon discharge the patient would be expected to follow-up with [facility] epilepsy clinic. (2) Afib Assessment/Plan: Rate controlled on carvedilol. He is also on Eliquis. (3) BPH (benign prostatic hyperplasia) Assessment/Plan: Flomax and finasteride. He also has a chronic Rodriguez catheter. - Current Meds Current Meds: Current Medications Generic Name Dose Route Start Last Admin Trade Name Freq PRN Reason Stop Dose Admin Acetaminophen 1,000 mg 05/31/21 16:17 05/31/21 22:47 Acetaminophen 500 Mg Tablet PO 1,000 mg Q6H PRN Administration Pain or Fever > 38C (100.4F) Apixaban 5 mg 05/31/21 21:00 05/31/21 22:48 Apixaban 5 Mg Tablet PO 5 mg BID PHAN Administration Atorvastatin Calcium 40 mg 05/31/21 21:00 05/31/21 22:49 Atorvastatin 40 Mg Tablet PO 40 mg QPM PHAN Administration Carvedilol 3.125 mg 05/31/21 21:00 05/31/21 22:48 Carvedilol 3.125 Mg Tablet PO 3.125 mg BID PHAN Administration Cyclobenzaprine HCl 10 mg 05/31/21 16:19 05/31/21 22:48 Cyclobenzaprine 10 Mg Tablet PO 10 mg TID PRN Administration Spasms Finasteride 5 mg 05/31/21 21:00 05/31/21 22:47 Finasteride 5 Mg Tablet PO 5 mg BID PHAN Administration Levetiracetam 1,000 mg 05/31/21 21:00 05/31/21 22:48 Levetiracetam 250 Mg Tablet PO 1,000 mg BID PHAN Administration Oxcarbazepine 600 mg 05/31/21 21:00 05/31/21 22:46 Oxcarbazepine 150 Mg Tablet PO 600 mg BID PHAN Administration - Lab Result Fish Bone Diagrams: 05/31/21 06:05 05/31/21 06:05 - Additional Planning My Orders: My Active Orders 05/31/21 14:[address] [ST] Routine 05/31/21 16:19 Cyclobenzaprine [Flexeril] 10 mg PO TID PRN Subjective - Subjective Patient Reports: Other (No change in patient's clinical status.) Objective Vital Signs: Vital Signs - 24 hr 05/31/21 06/01/21 16:00 00:02 Temperature 36.5 C 36.6 C Heart Rate [ 121 H 73 Brachial] Respiratory 18 16 Rate Blood Pressure 113/44 L [Left Brachial artery] Blood Pressure 106/52 L [Right Radial artery] O2 Saturation 92 96 Oxygen O2 Source Room air I&O (Last 24 Hrs): Intake and Output Totals x24h 05/30/21 05/31/21 06/01/21 23:59 23:59 23:59 Intake Total 597 922 Output Total 900 700 250 Balance -303 222 -250 Comments/Notes: General: Alert, No acute distress HEENT: PERRLA, EOMI Neck: Supple, No JVD Neuro: Alert, Disoriented (To place), Focal Deficits (Left arm weakness greater than left leg weakness. Residual deficits from previous CVA) Cardiovascular: Regular rate Respiratory: Chest non-tender, No respiratory distress, Wheezes Abdomen: Normal bowel sounds, Soft, No tenderness Extremities: No clubbing, No cyanosis, No edema, No tenderness/swelling Skin: No rashes, No breakdown, No significant lesion - Results Results: Laboratory Results WBC 6.2 x10^3/uL (4.8-10.8) 05/31/21 06:05 RBC 3.31 10^6/uL (4.70-6.10) L 05/31/21 06:05 Hgb 9.6 g/dL (14.0-18.0) L 05/31/21 06:05 Hct 29.3 % (42.0-52.0) L 05/31/21 06:05 MCV 88.5 fL (80.0-94.0) 05/31/21 06:05 MCH 29.0 pg (27.0-31.0) 05/31/21 06:05 MCHC 32.8 g/dL (32.0-36.0) 05/31/21 06:05 RDW 14.1 % (12.0-15.0) 05/31/21 06:05 Plt Count 263 10^3/uL (130-450) 05/31/21 06:05 MPV 8.8 fL (7.4-11.4) 05/31/21 06:05 Neut # (Auto) 3.8 10^3/uL (1.5-6.6) 05/31/21 06:05 Lymph # (Auto) 1.6 10^3/uL (1.5-3.5) 05/31/21 06:05 [place] # (Auto) 0.6 10^3/uL (0.0-1.0) 05/31/21 06:05 Eos # (Auto) 0.1 10^3/uL (0.0-0.7) 05/31/21 06:05 Baso # (Auto) 0.1 10^3/uL (0.0-0.1) 05/31/21 06:05 Absolute Nucleated RBC 0.00 x10^3/uL 05/31/21 06:05 Total Counted 100 04/22/21 10:26 Band Neuts % (Manual) 1 % (0-10) 04/22/21 10:26 Abnorm Lymph % (Manual) 0 % 04/22/21 10:26 Nucleated RBC % 0.0 /100WBC 05/31/21 06:05 Neutrophils # (Manual) 37.9 10^3/uL (1.5-6.6) H 04/22/21 10:26 Lymphocytes # (Manual) 0.0 10^3/uL (1.5-3.5) L 04/22/21 10:26 Monocytes # (Manual) 0.8 10^3/uL (0.0-1.0) 04/22/21 10:26 Eosinophils # (Manual) 0.0 10^3/uL (0-0.7) 04/22/21 10:26 Basophils # (Manual) 0.0 10^3/uL (0-0.1) 04/22/21 10:26 Differential Comment MANUAL DIFFERENTIAL 04/22/21 10:26 WBC Morphology NORMAL APPEARANCE (NORMAL) 04/22/21 04:40 Platelet Estimate NORMAL (130-450,000) (NORMAL) 04/22/21 10:26 Platelet Morphology NORMAL APPEARANCE (NORMAL) 04/22/21 10:26 RBC Morph Micro Appear NORMAL APPEARANCE (NORMAL) 04/22/21 10:26 Sodium 129 mmol/L (135-145) L 05/31/21 06:05 Potassium 4.3 mmol/L (3.5-5.0) 05/31/21 06:05 Chloride 95 mmol/L (101-111) L 05/31/21 06:05 Carbon Dioxide 26 mmol/L (21-32) 05/31/21 06:05 Anion Gap 8.0 (6-13) 05/31/21 06:05 BUN 23 mg/dL (6-20) H 05/31/21 06:05 Creatinine 1.0 mg/dL (0.6-1.2) 05/31/21 06:05 Estimated GFR (MDRD) 72 (>89) L 05/31/21 06:05 Glucose 91 mg/dL (70-100) 05/31/21 06:05 POC Whole Bld Glucose 128 mg/dL (70 - 100) H 04/28/21 10:17 Calcium 8.7 mg/dL (8.5-10.3) 05/31/21 06:05 Magnesium 2.2 mg/dL (1.7-2.8) 05/18/21 06:57 Total Bilirubin 0.9 mg/dL (0.2-1.0) 05/24/21 09:00 AST 17 IU/L (10-42) 05/24/21 09:00 ALT 17 IU/L (10-60) 05/24/21 09:00 Alkaline Phosphatase 98 IU/L (42-121) 05/24/21 09:00 Troponin I High Sens 6.0 ng/L (2.3-19.7) 05/12/21 11:44 Total Protein 6.0 g/dL (6.7-8.2) L 05/24/21 09:00 Albumin 3.4 g/dL (3.2-5.5) 05/24/21 09:00 Globulin 2.6 g/dL (2.1-4.2) 05/24/21 09:00 Albumin/Globulin Ratio 1.3 (1.0-2.2) 05/24/21 09:00 Urine Color YELLOW 05/24/21 09:13 Urine Clarity CLEAR (CLEAR) 05/24/21 09:13 Urine pH 7.5 PH (5.0-7.5) 05/24/21 09:13 Ur Specific [place] 1.020 (1.002-1.030) 05/24/21 09:13 Urine Protein NEGATIVE mg/dL (NEGATIVE) 05/24/21 09:13 Urine Glucose (UA) NEGATIVE mg/dL (NEGATIVE) 05/24/21 09:13 Urine Ketones NEGATIVE mg/dL (NEGATIVE) 05/24/21 09:13 Urine Occult Blood SMALL (NEGATIVE) H 05/24/21 09:13 Urine Nitrite POSITIVE (NEGATIVE) H 05/24/21 09:13 Urine Bilirubin NEGATIVE (NEGATIVE) 05/24/21 09:13 Urine Urobilinogen 0.2 (NORMAL) E.U./dL (NORMAL) 05/24/21 09:13 Ur Leukocyte Esterase NEGATIVE (NEGATIVE) 05/24/21 09:13 Urine RBC 0-5 /HPF (0-5) 05/24/21 09:13 Urine WBC 0-3 /HPF (0-3) 05/24/21 09:13 Urine WBC Clumps NONE SEEN 05/24/21 09:13 Ur Squamous Epith Cells RARE Squamous (<= Few) 05/24/21 09:13 Amorphous Sediment Few /LPF 04/15/21 11:50 Urine Bacteria None Seen /HPF (None Seen) 05/24/21 09:13 Urine Mucus Moderate Strands 04/22/21 12:01 Urine Culture Comments INDICATED 05/24/21 09:13 Nasal Adenovirus (PCR) NOT DETECTED 04/13/21 16:48 Nasal B. parapertussis DNA (PCR) NOT DETECTED 04/13/21 16:48 Nasal Coronavir 229E PCR NOT DETECTED 04/13/21 16:48 Nasal Coronavir HKU1 PCR NOT DETECTED 04/13/21 16:48 Nasal Coronavir NL63 PCR NOT DETECTED 04/13/21 16:48 Nasal Coronavir OC43 PCR NOT DETECTED 04/13/21 16:48 Nasal Enterovir/Rhinovir PCR NOT DETECTED 04/13/21 16:48 Nasal Influenza B PCR NOT DETECTED 04/13/21 16:48 Nasal Influenza A PCR NOT DETECTED 04/13/21 16:48 Nasal Parainfluen 1 PCR NOT DETECTED 04/13/21 16:48 Nasal Parainfluen 2 PCR NOT DETECTED 04/13/21 16:48 Nasal Parainfluen 3 PCR NOT DETECTED 04/13/21 16:48 Nasal Parainfluen 4 PCR NOT DETECTED 04/13/21 16:48 Nasal RSV (PCR) NOT DETECTED 04/13/21 16:48 Nasal B.pertussis DNA PCR NOT DETECTED 04/13/21 16:48 Nasal C.pneumoniae (PCR) NOT DETECTED 04/13/21 16:48 Mian Human Metapneumo PCR NOT DETECTED 04/13/21 16:48 Nasal M.pneumoniae (PCR) NOT DETECTED 04/13/21 16:48 Nasal SARS-CoV-2 (PCR) NOT DETECTED 04/13/21 16:48 Levetiracetam 28.3 mcg/mL 04/25/21 12:24 Ethyl Alcohol < 5.0 mg/dL 04/13/21 13:10 ABX Reporting Has patient been on IV antibiotics over the past 48 hours?: No
[2021-06-01] MEDS: OXcarbazepine 150 MG TABLET PO SCH ×2 (09:39→21:24)
[2021-06-01] MEDS: levETIRAcetam 250 MG TABLET PO SCH ×2 (09:41→21:24)
[2021-06-01] MEDS: SENNA 8.6 MG TABLET PO SCH (09:43)
[2021-06-01] MEDS: carvediloL 3.125 MG TABLET PO SCH ×2 (09:52→21:23)
[2021-06-01] MEDS: FINASTERIDE 5 MG TABLET PO SCH ×2 (09:52→21:23)
[2021-06-01] MEDS: MAGNESIUM OXIDE 400 MG TABLET PO SCH (09:52)
[2021-06-01] MEDS: DOCUSATE SODIUM 250 MG CAPSULE PO SCH ×2 (09:53→12:48)
[2021-06-01] MEDS: POTASSIUM CHLORIDE 10 MEQ CAPSULE PO SCH (09:53)
[2021-06-01] MEDS: APIXABAN 5 MG TABLET PO SCH ×2 (09:54→21:23)
[2021-06-01] MEDS: TAMSULOSIN 0.4 MG CAPSULE PO SCH (09:54)
[2021-06-01] MEDS: MULTIVITAMIN W/MINERALS TABLET PO SCH ×2 (09:54→12:48)
[2021-06-01] MEDS: lisinopriL 20 MG TABLET PO SCH (09:54)
[2021-06-01] MEDS: polyethylene glycoL 3350 17 GM PACKET PO SCH (09:55)
[2021-06-01] MEDS: ATORVASTATIN 40 MG TABLET PO SCH (21:23)
[2021-06-02 07:48] VITALS: BP 127/57
--- NOTE | 2021-06-02 07:56 | Discharge Plan ---
"Discharge Plan for SNF / LONG TERM - Discharge Plan And Transition Orders Problem Reviewed?: Yes Disposition: [address] Sw[address] DC/Xfer Condition: Serious Allergies and Adverse Reactions: Allergies Allergy/AdvReac Type Severity Reaction Status Date / Time No Known Drug Allergies Allergy Verified 04/13/21 12:38 Health Concerns: Patient was admitted with seizures which is residual deficit from previous CVA. He has been treated with Keppra and Trileptal and for several weeks now has not had any seizures. He has been working with physical therapy during his hospital stay. He is medically optimized and is being transitioned to swing bed for 2 weeks of rehab here at the hospital. After this. Patient will be discharged home to his family. His and daughters were informed of this plan and are in agreement. - SNF / LONG TERM Transition Orders Admit to (Facility): [facility] Under the care of (Name): Tanner Underwood [facility] Discharge Diagnosis: Seizures As late effect of cerebrovascular accident Atrial fibrillation BPH Medicare Certification Statement: I certify that Post Hospital fci care is medically necessary on a continuing basis for any of the conditions for which she/he is receiving care during hospitalization. Notify PCP of admission and forward orders to primary provider for signature. Weight on admission and: Daily Call PCP immediately if weight increases by: 3 kg Other Notification Orders: Call PCP immediately if patient develops dyspnea, chest pain/tightness or edema. House Bowel Program: Yes Additional Bowel Program Orders: If no BM after 2 days, nurse may give M.O.M. 30ml PO PRN and/or ducolax Supp 1 VT and/or ALE 250mg P.O., and/or senna 1-2 tabs PO. On day 3 nurse may give repeat above order until residents constipation is resolved. Medication Orders: PLEASE REFER TO THE DISCHARGE MEDICATION LIST. - Medications New Prescriptions: Levetiracetam [Keppra Xr] 2 tab PO DAILY #60 tab OXcarbazepine [Trileptal] 600 mg PO BID #60 tablet - Diet Type: Geriatric Texture: Regular May have monthly special meal: Yes - Therapies | Activity Therapy: Evaluation | Treat if indicated: Speech, PT, OT, Swallowing / ST Activity: Per Physical Therapy Assistance Devices: Walker Follow Up: Neurologist"
--- NOTE | 2021-06-02 07:56 | DISCHARGE SUMMARY ---
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 Stable. On trileptal and keppra CVA: Chronic. Cardiomyopathy: Improved/ Resolved Atrial fibrillation: Chronic. Stable. 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 Today he has left arm twitching that went on to become a generalized tonic-clonic seizure. EMS was called and they gave Versed IV in transit. He was obtunded on presentation to the ED. He underwent head and neck CTA that were unremarkable except for old stroke in the right parietal region finding. The ED provider called neurologist on-call who advises Keppra loading and increase his Keppra dose from 750 extended release to 1000 mg extended release daily. In the ED after the CT scans, he was post ictal, exhibiting signs of marked confusion, pul ling at his Rodriguez, pulling at his skin, complaining about a Rodriguez catheter size and having pain. He continues to have agitation and will be placed in observation for monitoring continued post ictal confusion. - HOSPITAL COURSE Hospital Course: Patient had an extended/prolonged stay in the hospital. He was in the hospital for 50 days. Over the first 1 week to 10 days patient had frequent intermittent seizures after which he appeared to have left upper extremity weakness and left facial droop. Imaging was done on 2 occasions after such episodes and noted to be negative. After discussing with the patient's about patient neurologist at [facility] he was placed on Trileptal 600 mg p.o. twice daily in addition to Keppra 1000 mg extended release daily. This was successful in controlling seizures. However over the course of the prolonged hospital stay patient had general physical decline. He required significant physical therapy. Also his cognition seem to wax and wane. Intermittently he would become agitated and several times required a one-to-one sitter and or soft restraints. For period of time placement was an issue because of definitive plan after placement. After the patient was optimized and after significant effort by the social work team the patient was discharged and admitted to the swing bed at [facility] for 2 weeks of rehab. After this 2 weeks he will be discharged home with his family. - ALLERGIES Allergies/Adverse Reactions: Allergies Allergy/AdvReac Type Severity Reaction Status Date / Time No Known Drug Allergies Allergy Verified 04/13/21 12:38 - MEDICATIONS Home Medications: Ambulatory Orders Medication Instructions Recorded Confirmed carvediloL [Coreg] 3.125 mg PO BID #60 tablet 10/25/19 06/04/21 Apixaban [Eliquis] 5 mg PO BID 04/13/21 06/04/21 Finasteride [Proscar] 5 mg PO DAILY 04/13/21 06/04/21 Levetiracetam [Keppra Xr] 2 tab PO DAILY #60 tab 04/13/21 06/04/21 Lisinopril [Zestril] 20 mg PO DAILY 04/13/21 06/04/21 Tamsulosin [Flomax] 0.4 mg PO DAILY 04/13/21 06/04/21 OXcarbazepine [Trileptal] 600 mg PO BID #60 tablet 06/02/21 06/04/21 - PHYSICAL EXAM AT DISCHARGE General Appearance: positive: No acute distress, Alert Eyes Bilateral: positive: PERRL, EOMI ENT: positive: No signs of dehydration Neck: positive: No JVD, Trachea midline Respiratory: positive: Chest non-tender, No respiratory distress, Breath sounds nml. negative: Wheezes, Rales, Rhonchi Cardiovascular: positive: Regular rate & rhythm, No murmur Abdomen: positive: Non-tender, No organomegaly, Nml bowel sounds, No distention. negative: Guarding, Rebound Back: positive: Nml inspection Skin: positive: Color nml, No rash, Warm, Dry Extremities: positive: Non-tender, No pedal edema Neurologic/Psychiatric: positive: Oriented x3, Weakness (left upper extremity weakness), Other - LABS Result Diagrams: 05/31/21 06:05 05/31/21 06:05 - TIME SPENT Time Spent in Discharge (Minutes): 20
[2021-06-02] MEDS: levETIRAcetam 250 MG TABLET PO SCH (10:13)
[2021-06-02] MEDS: OXcarbazepine 150 MG TABLET PO SCH (10:13)
[2021-06-02] MEDS: SENNA 8.6 MG TABLET PO SCH (10:15)
[2021-06-02] MEDS: POTASSIUM CHLORIDE 10 MEQ CAPSULE PO SCH (10:16)
[2021-06-02] MEDS: carvediloL 3.125 MG TABLET PO SCH (10:16)
[2021-06-02] MEDS: lisinopriL 20 MG TABLET PO SCH (10:16)
[2021-06-02] MEDS: TAMSULOSIN 0.4 MG CAPSULE PO SCH (10:16)
[2021-06-02] MEDS: MAGNESIUM OXIDE 400 MG TABLET PO SCH (10:17)
[2021-06-02] MEDS: FINASTERIDE 5 MG TABLET PO SCH (10:18)
[2021-06-02] MEDS: APIXABAN 5 MG TABLET PO SCH (10:18)
[2021-06-02] MEDS: DOCUSATE SODIUM 250 MG CAPSULE PO SCH (10:18)
[2021-06-02] MEDS: MULTIVITAMIN W/MINERALS TABLET PO SCH (10:18)
[2021-06-02] MEDS: polyethylene glycoL 3350 17 GM PACKET PO SCH (10:19)
== END 2021-06-02 13:48 | disposition swing bed (61) | DRG 101 ==
LOC: EDUNIT# → ED 12:25 → SUPCPDRO 12:25 → MS3 17:13 → OBSVTOIN 04-14 16:58 → MS2 05-18 12:13
PROVIDERS: ADMIT Internal Medicine; ATTEND Internal Medicine
DX: G40.409 Other generalized epilepsy and epileptic syndromes, not intractable, without status epilepticus (principal); G40.909 Epilepsy, unspecified, not intractable, without status epilepticus; I42.9 Cardiomyopathy, unspecified; I48.20 Chronic atrial fibrillation, unspecified; F05 Delirium due to known physiological condition; N30.00 Acute cystitis without hematuria; I50.30 Unspecified diastolic (congestive) heart failure; I48.91 Unspecified atrial fibrillation; I69.354 Hemiplegia and hemiparesis following cerebral infarction affecting left non-dominant side; Z20.822 Contact with and (suspected) exposure to COVID-19; I69.398 Other sequelae of cerebral infarction; N40.1 Benign prostatic hyperplasia with lower urinary tract symptoms; R33.8 Other retention of urine; H91.90 Unspecified hearing loss, unspecified ear; Z79.01 Long term (current) use of anticoagulants; Z78.1 Physical restraint status; R45.1 Restlessness and agitation; M62.81 Muscle weakness (generalized); R29.810 Facial weakness; R44.1 Visual hallucinations; D72.829 Elevated white blood cell count, unspecified; R32 Unspecified urinary incontinence; F03.90 Unspecified dementia, unspecified severity, without behavioral disturbance, psychotic disturbance, mood disturbance, and anxiety; R39.15 Urgency of urination; R35.0 Frequency of micturition; G83.84 Todd's paralysis (postepileptic); Z66 Do not resuscitate; E87.6 Hypokalemia; R07.9 Chest pain, unspecified; M54.9 Dorsalgia, unspecified; M54.2 Cervicalgia; K59.00 Constipation, unspecified
CPT/HCPCS: 36415; 70450; 70496; 70498; 70551; 71045; 74018; 80048; 80053; 80177; 81001; 83735; 84484; 85025; 87040; 87077; 87086; 87181; 87631; 92523; 92610; 93005; 93306; 96365; 96375; 96376; 97110; 97112; 97116; 97162; 97164; 97165; 97168; 97530; 97535; 99285; A9270; G0378; G0480; J0131; J1170; J1650; J2060; Q9967; 0202U; 80320

== ENCOUNTER 2021-05-31 16:41 | Inpatient (IN) | payer MEDICARE ==
[2021-06-02] MEDS: carvediloL 3.125 MG TABLET PO SCH (21:36)
[2021-06-02] MEDS: OXcarbazepine 150 MG TABLET PO SCH (21:36)
--- NOTE | 2021-06-03 08:35 | HISTORY & PHYSICAL EXAMINATION ---
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 He was admitted to [facility] on [birth year][facility]/[birth year]31 after experiencing a generalized tonic clonic seizure. He was obtunded on presentation, underwent CT of the head and neck CT angiogram that were unremarkable except for old stroke in the right parietal region at that time of admission the patient was presented neurologist bilingual medical receptionist who advised Keppra loading and to increase his Keppra dose from 750 extended release to 1000 mg extended release daily. Patient was admitted and treated. Over the course of his hospital still he had several seizures. This episodes were followed by left-sided weakness for which he repeatedly undergo went imaging. Repeat imaging were negative for any acute intracranial process. Patient's seizures were finally successfully controlled over his hospital stay by adding Trileptal 600 mg p.o. twice daily. However due to extended stay in the hospital patient required significant rehab. There appeared to be some significant decline in patient's overall function and cognitive ability which waxed and waned. This significantly affected the patient's disposition. After significant effort on the part of social work the patient was transitioned to swing bed at [facility] for a planned 2-week period stay. This was done on 06/03/2021. At bedside he is resting comfortably. He denies any significant complaints. Left upper extremity weakness is appreciable. History - Past Medical History Cardiovascular: reports: Congestive heart failure, Atrial fibrillation Respiratory: reports: None Neuro: reports: CVA Endocrine/Autoimmune: reports: None : reports: Benign prostate hypertrophy, Retention Psych: reports: None Musculoskeletal: reports: None - Family & Social History Family History Comment/Other: Patient is currently unable to give a detailed family history owing to current medical condition and fluctuating cognition. Living Situation: With spouse/s.o. Social History Notes: Prior to his recent admission on 04/13/21 he lived with his who is his caregiver. He drove a car minimally but would currently be unable to do so. He is a non-smoker, drinks no alcohol. - Substance History Use: Uses substance without health or social issues: Cannabis (Wifer reported to ED provider that he smokes marijuana 6 times a day for decades) - POLST Patient has POLST: Yes POLST Status: DNR Meds/Allgy - Home Medications Home Medications: Ambulatory Orders Medication Instructions Recorded Confirmed carvediloL [Coreg] 3.125 mg PO BID #60 tablet 10/25/19 06/04/21 Apixaban [Eliquis] 5 mg PO BID 04/13/21 06/04/21 Finasteride [Proscar] 5 mg PO DAILY 04/13/21 06/04/21 Levetiracetam [Keppra Xr] 2 tab PO DAILY #60 tab 04/13/21 06/04/21 Lisinopril [Zestril] 20 mg PO DAILY 04/13/21 06/04/21 Tamsulosin [Flomax] 0.4 mg PO DAILY 04/13/21 06/04/21 OXcarbazepine [Trileptal] 600 mg PO BID #60 tablet 06/02/21 06/04/21 - Allergies Allergies/Adverse Reactions: Allergies Allergy/AdvReac Type Severity Reaction Status Date / Time No Known Drug Allergies Allergy Verified 04/13/21 12:38 Review of Systems - Constitutional Constitutional: reports: Weakness (left upper extremity weakness). denies: Fatigue, Fever, Chills - Eyes Eyes: denies: Pain, Vision loss - Ears, Nose & Throat Ears, Nose & Throat: denies: Ear pain, Sore throat - Cardiovascular Cariovascular: reports: Irregular heart rate. denies: Palpitations, Chest pain, Edema, Lightheadedness, Syncope - Respiratory Respiratory: denies: Cough, SOB at rest, SOB with exertion - Gastrointestinal Gastrointestinal: denies: Abdominal pain, Abdominal distention, Constipation, Diarrhea, Nausea, Vomiting - Genitourinary Genitourinary: reports: Other (urinary retention). denies: Dysuria, Frequency, Urgency - Musculoskeletal Musculoskeletal: denies: Muscle pain, Back pain - Integumentary Integumentary: denies: Rash, Pruritis, Lesions - Neurological Neurological: reports: Focal weakness (left upper extremity weakness) - Psychiatric Psychiatric: denies: Depression, Anxiety - Endocrine Endocrine: denies: Polyuria, Polydypsia - Hematologic/Lymphatic Hematologic/Lymphatic: denies: Anemia, Bruising Prior Level of Functionality: Patient requires assistance with activity of daily living and requires a walker with assistance to ambulate. Exam - Vital Signs Vital Signs: Vital Signs x48h Temp Pulse Resp BP Pulse Ox 06/03/21 08:24 36.3 C L 73 16 98/60 97 - Physical Exam General Appearance: positive: No acute distress, Alert Eyes Bilateral: positive: PERRL, EOMI Neck: positive: Nml inspection, No JVD, Trachea midline Respiratory: positive: Chest non-tender, No respiratory distress, Breath sounds nml. negative: Wheezes, Rales, Rhonchi Cardiovascular: positive: Regular rate & rhythm, No murmur Abdomen: positive: Non-tender, No organomegaly, Nml bowel sounds, No distention. negative: Guarding, Rebound Back: positive: Nml inspection Skin: positive: No rash, Warm, Dry Extremities: positive: Non-tender, No pedal edema Neurologic/Psychiatric: positive: Mood/affect nml, Disoriented to person, Disoriented to place Conclusion/Plan - Problem List (1) Seizure as late effect of cerebrovascular accident (CVA) Conclusion/Plan: On Trileptal 600 mg p.o. twice daily and Keppra 1000 mg p.o. twice daily. (2) Afib Conclusion/Plan: Coreg 3.125 mg p.o. twice daily. Eliquis 5 mg p.o. twice daily (3) BPH (benign prostatic hyperplasia) Conclusion/Plan: On finasteride 5 mg p.o. daily and tamsulosin 0.4 mg p.o. daily. (4) Left-sided weakness Conclusion/Plan: This is residual effect from patient's CVA and exacerbated by seizure activity. Patient was transition to the swing bed for 2 weeks of rehab. Physical therapy and Occupational Therapy to assess and treat patient. (5) Hypertension Conclusion/Plan: On lisinopril and carvedilol. Core Measures - Anticipated LOS I expect patient to be DC'd or transferred within 96 hours.: Yes - DVT/VTE - Prophylaxis VTE/DVT Device ordered at admit?: Yes VTE/DVT Prophylaxis med ordered at admit?: Yes - Stroke - Rehab Assessment Rehab services assessment to be ordered?: Yes
[2021-06-03] MEDS ORDERED: APIXABAN 5 MG TABLET PO SCH (09:00)
[2021-06-03] MEDS: TAMSULOSIN 0.4 MG CAPSULE PO SCH (09:23)
[2021-06-03] MEDS: levETIRAcetam 250 MG TABLET PO SCH ×2 (09:24→20:30)
[2021-06-03] MEDS: lisinopriL 20 MG TABLET PO SCH (09:24)
[2021-06-03] MEDS: OXcarbazepine 150 MG TABLET PO SCH ×2 (09:24→20:29)
[2021-06-03] MEDS: FINASTERIDE 5 MG TABLET PO SCH (09:24)
[2021-06-03] MEDS: carvediloL 3.125 MG TABLET PO SCH ×2 (09:24→20:30)
[2021-06-03] MEDS: APIXABAN 5 MG TABLET PO SCH (20:31)
[2021-06-03] MEDS: ACETAMINOPHEN 325 MG TABLET PO PRN (20:31)
[2021-06-04] MEDS: APIXABAN 5 MG TABLET PO SCH ×2 (09:58→22:03)
[2021-06-04] MEDS: carvediloL 3.125 MG TABLET PO SCH ×2 (09:58→22:03)
[2021-06-04] MEDS: lisinopriL 20 MG TABLET PO SCH (09:58)
[2021-06-04] MEDS: OXcarbazepine 150 MG TABLET PO SCH ×2 (09:58→22:02)
[2021-06-04] MEDS: FINASTERIDE 5 MG TABLET PO SCH (09:58)
[2021-06-04] MEDS: levETIRAcetam 250 MG TABLET PO SCH ×2 (09:58→22:02)
[2021-06-04] MEDS: TAMSULOSIN 0.4 MG CAPSULE PO SCH (09:58)
--- NOTE | 2021-06-04 10:15 | PHARMACY PROGRESS NOTE ---
- Best Possible Medication History Admit Date and Time: 06/02/21 8695 Processed by: Pharmacy Medication History completed: Yes Patient Interview: Completed (SWING BED - SAME MEDS FROM PREVIOUS ACCOUNT) As the person ultimately responsible for medication therapy, providers are able to order a medication from an existing home medication list in [facility] via the "Reconcile Routine" prior to Confirmation of that medication by product support engineer. Such practice is discouraged except when the physician, in their clinical judgment, deems that a medical need exists for a medication without regard to previous use.
[2021-06-05] MEDS: levETIRAcetam 250 MG TABLET PO SCH ×2 (09:44→21:28)
[2021-06-05] MEDS: OXcarbazepine 150 MG TABLET PO SCH ×2 (09:44→21:27)
[2021-06-05] MEDS: lisinopriL 20 MG TABLET PO SCH (10:21)
[2021-06-05] MEDS: carvediloL 3.125 MG TABLET PO SCH ×2 (10:21→21:28)
[2021-06-05] MEDS: TAMSULOSIN 0.4 MG CAPSULE PO SCH (10:21)
[2021-06-05] MEDS: APIXABAN 5 MG TABLET PO SCH ×2 (10:21→21:28)
[2021-06-05] MEDS: FINASTERIDE 5 MG TABLET PO SCH (10:23)
[2021-06-05] MEDS: ACETAMINOPHEN 325 MG TABLET PO PRN (22:27)
--- NOTE | 2021-06-05 23:34 | XRAY Report ---
PROCEDURE: Abdomen 1 View X-Ray INDICATIONS: KUB for lower abdominal pain TECHNIQUE: 1 supine view of the abdomen were acquired. COMPARISON: 05/24/2021 FINDINGS: Surgical changes and devices: None. Bowel: The bowel gas pattern is within normal limits. Soft tissues: There are 2 calcifications projecting over the left kidney redemonstrated, measuring up to approximately 0.7 cm, likely representing left renal stones. Bones: No suspicious bony abnormalities. IMPRESSION: 1. Bowel gas pattern within normal limits. 2. Probable left renal stones redemonstrated. Reviewed by: Celso Wright MD on 06/05/2021 11:33 PM PST Approved by: Celso Wright MD on 06/05/2021 11:33 PM PST Station ID: [id number]
--- NOTE | 2021-06-06 00:27 | PROVIDER PROGRESS NOTE ---
Telecommunications Clerk Note - Telecommunications Clerk Note Telecommunications Clerk Note: This evening, the patient was on the toilet trying to have a BM with no success. When he was helped back to bed, and was supine, he started to complain of lower mid-abdominal pain. The RN asked me to see him regarding abdominal pain. He has been eating normally. His last BM was 2 days ago. Exam: VSS, he was moaning, eyes closed, massaging his lower abdomen with his right hand. Chest clear. Cor no murmur. Abdomen soft, normal bowel soinds, not distended or hypertympanic, no guarding or rebound. Legs without edema. A warm compress was ordered and after 10 min there was no improvement. He received a dose of Tylenol 650 mg. A KUB XRay was done and was unremarkable, it showed a normal gas pattern. After that, his pain subsided. Impression: Constipation0- probably causing lower abd pain. Seizures- stable Afib- stable BPH- on meds L-sided weakness- stable Plan: Laxatives prn and bowel protocol should continue.
[2021-06-06] MEDS: OXcarbazepine 150 MG TABLET PO SCH ×2 (10:23→20:07)
[2021-06-06] MEDS: levETIRAcetam 250 MG TABLET PO SCH ×2 (10:24→20:07)
[2021-06-06] MEDS: FINASTERIDE 5 MG TABLET PO SCH (10:25)
[2021-06-06] MEDS: carvediloL 3.125 MG TABLET PO SCH ×2 (10:25→20:07)
[2021-06-06] MEDS: TAMSULOSIN 0.4 MG CAPSULE PO SCH (10:26)
[2021-06-06] MEDS: APIXABAN 5 MG TABLET PO SCH ×2 (10:26→20:07)
[2021-06-06] MEDS: lisinopriL 20 MG TABLET PO SCH (10:27)
[2021-06-07 05:40] LABS: BASOPHILS # (AUTO) 0.1 10^3/uL (0.0-0.1); BASOPHILS % (AUTO) 1.1 %; EOSINOPHILS # (AUTO) 0.2 10^3/uL (0.0-0.7); EOSINOPHILS % (AUTO) 2.8 %; HCT - HEMATOCRIT 30.1 % (42.0-52.0); LYMPHOCYTES # (AUTO) 1.5 10^3/uL (1.5-3.5); LYMPHOCYTES % (AUTO) 19.6 %; MEAN CORPUSCULAR HEMOGLOBIN 29.1 pg (27.0-31.0); MEAN CORPUSCULAR HGB CONC 33.2 g/dL (32.0-36.0); MEAN CORPUSCULAR VOLUME 87.5 fL (80.0-94.0); MEAN PLATELET VOLUME 8.4 fL (7.4-11.4); MONOCYTES # (AUTO) 0.6 10^3/uL (0.0-1.0); MONOCYTES % (AUTO) 7.4 %; NEUTROPHILS # (AUTO) 5.4 10^3/uL (1.5-6.6); NEUTROPHILS % (AUTO) 68.7 %; PLT - PLATELET COUNT 279 10^3/uL (130-450); RED BLOOD COUNT 3.44 10^6/uL (4.70-6.10); RED CELL DISTRIBUTION WIDTH 13.9 % (12.0-15.0); WHITE BLOOD COUNT 7.9 x10^3/uL (4.8-10.8)
[2021-06-07 05:48] LABS: CALCIUM 8.8 mg/dL (8.5-10.3); CREATININE 1.1 mg/dL (0.6-1.2); POTASSIUM 4.2 mmol/L (3.5-5.0)
[2021-06-07] MEDS: polyethylene glycoL 3350 17 GM PACKET PO SCH (09:12)
[2021-06-07] MEDS: OXcarbazepine 150 MG TABLET PO SCH ×2 (09:12→21:44)
[2021-06-07] MEDS: carvediloL 3.125 MG TABLET PO SCH ×2 (09:13→21:44)
[2021-06-07] MEDS: levETIRAcetam 250 MG TABLET PO SCH ×2 (09:13→21:44)
[2021-06-07] MEDS: lisinopriL 20 MG TABLET PO SCH (09:14)
[2021-06-07] MEDS: APIXABAN 5 MG TABLET PO SCH ×2 (09:14→21:44)
[2021-06-07] MEDS: FINASTERIDE 5 MG TABLET PO SCH (09:14)
[2021-06-07] MEDS: TAMSULOSIN 0.4 MG CAPSULE PO SCH (09:14)
[2021-06-08] MEDS: OXcarbazepine 150 MG TABLET PO SCH ×2 (10:17→20:21)
[2021-06-08] MEDS: TAMSULOSIN 0.4 MG CAPSULE PO SCH (10:17)
[2021-06-08] MEDS: carvediloL 3.125 MG TABLET PO SCH ×2 (10:17→20:21)
[2021-06-08] MEDS: FINASTERIDE 5 MG TABLET PO SCH (10:17)
[2021-06-08] MEDS: levETIRAcetam 250 MG TABLET PO SCH ×2 (10:17→20:21)
[2021-06-08] MEDS: polyethylene glycoL 3350 17 GM PACKET PO SCH (10:18)
[2021-06-08] MEDS: lisinopriL 20 MG TABLET PO SCH (10:18)
[2021-06-08] MEDS: DOCUSATE SODIUM 250 MG CAPSULE PO SCH (10:18)
[2021-06-08] MEDS: APIXABAN 5 MG TABLET PO SCH ×2 (10:18→20:21)
[2021-06-08] MEDS: SENNA 8.6 MG TABLET PO SCH (10:18)
[2021-06-09] MEDS: APIXABAN 5 MG TABLET PO SCH ×2 (12:29→20:55)
[2021-06-09] MEDS: FINASTERIDE 5 MG TABLET PO SCH (12:30)
[2021-06-09] MEDS: carvediloL 3.125 MG TABLET PO SCH ×2 (12:30→20:55)
[2021-06-09] MEDS: lisinopriL 20 MG TABLET PO SCH (12:32)
[2021-06-09] MEDS: OXcarbazepine 150 MG TABLET PO SCH ×2 (12:38→20:54)
[2021-06-09] MEDS: levETIRAcetam 250 MG TABLET PO SCH ×2 (12:38→20:55)
[2021-06-09] MEDS: TAMSULOSIN 0.4 MG CAPSULE PO SCH (12:44)
[2021-06-09] MEDS: SENNA 8.6 MG TABLET PO SCH (12:44)
[2021-06-09] MEDS: polyethylene glycoL 3350 17 GM PACKET PO SCH (12:46)
[2021-06-09] MEDS: ACETAMINOPHEN 325 MG TABLET PO PRN (19:37)
[2021-06-10] MEDS: SENNA 8.6 MG TABLET PO SCH (08:55)
[2021-06-10] MEDS: carvediloL 3.125 MG TABLET PO SCH ×2 (08:55→20:22)
[2021-06-10] MEDS: levETIRAcetam 250 MG TABLET PO SCH ×2 (08:55→20:22)
[2021-06-10] MEDS: lisinopriL 20 MG TABLET PO SCH (08:55)
[2021-06-10] MEDS: polyethylene glycoL 3350 17 GM PACKET PO SCH (08:55)
[2021-06-10] MEDS: APIXABAN 5 MG TABLET PO SCH ×2 (08:55→20:22)
[2021-06-10] MEDS: DOCUSATE SODIUM 250 MG CAPSULE PO SCH (08:55)
[2021-06-10] MEDS: FINASTERIDE 5 MG TABLET PO SCH (08:55)
[2021-06-10] MEDS: OXcarbazepine 150 MG TABLET PO SCH ×2 (08:56→20:22)
[2021-06-10] MEDS: TAMSULOSIN 0.4 MG CAPSULE PO SCH (08:56)
[2021-06-11] MEDS: ACETAMINOPHEN 325 MG TABLET PO PRN ×2 (03:17→16:46)
[2021-06-11] MEDS: APIXABAN 5 MG TABLET PO SCH ×2 (08:47→20:27)
[2021-06-11] MEDS: OXcarbazepine 150 MG TABLET PO SCH ×2 (08:47→20:27)
[2021-06-11] MEDS: SENNA 8.6 MG TABLET PO SCH (08:48)
[2021-06-11] MEDS: levETIRAcetam 250 MG TABLET PO SCH ×2 (08:48→20:27)
[2021-06-11] MEDS: lisinopriL 20 MG TABLET PO SCH (08:49)
[2021-06-11] MEDS: FINASTERIDE 5 MG TABLET PO SCH (08:49)
[2021-06-11] MEDS: carvediloL 3.125 MG TABLET PO SCH ×2 (08:49→20:27)
[2021-06-11] MEDS: DOCUSATE SODIUM 250 MG CAPSULE PO SCH (08:49)
[2021-06-11] MEDS: TAMSULOSIN 0.4 MG CAPSULE PO SCH (08:49)
[2021-06-11] MEDS ORDERED: LACTULOSE 10 GM /15 ML UDC PO SCH (11:00)
[2021-06-11] MEDS: polyethylene glycoL 3350 17 GM PACKET PO SCH (11:09)
[2021-06-11] MEDS ORDERED: BISACODYL 10 MG SUPP PR STA (19:51)
[2021-06-12] MEDS: ACETAMINOPHEN 325 MG TABLET PO PRN ×2 (01:08→13:57)
[2021-06-12] MEDS: polyethylene glycoL 3350 17 GM PACKET PO SCH (13:34)
[2021-06-12] MEDS: OXcarbazepine 150 MG TABLET PO SCH ×2 (13:57→21:08)
[2021-06-12] MEDS: DOCUSATE SODIUM 250 MG CAPSULE PO SCH (13:58)
[2021-06-12] MEDS: levETIRAcetam 250 MG TABLET PO SCH ×2 (13:58→21:08)
[2021-06-12] MEDS: lisinopriL 20 MG TABLET PO SCH (13:58)
[2021-06-12] MEDS: carvediloL 3.125 MG TABLET PO SCH ×2 (13:58→21:11)
[2021-06-12] MEDS: APIXABAN 5 MG TABLET PO SCH ×2 (13:58→21:08)
[2021-06-12] MEDS: FINASTERIDE 5 MG TABLET PO SCH (13:59)
[2021-06-12] MEDS: SENNA 8.6 MG TABLET PO SCH (13:59)
[2021-06-12] MEDS: TAMSULOSIN 0.4 MG CAPSULE PO SCH (13:59)
--- NOTE | 2021-06-12 19:33 | PROVIDER PROGRESS NOTE ---
Assessment/Plan - Problem List (1) Seizure as late effect of cerebrovascular accident (CVA) Assessment/Plan: On Trileptal 600 mg p.o. twice daily and Keppra 1000 mg p.o. twice daily. (2) Afib Assessment/Plan: Coreg 3.125 mg p.o. twice daily. Eliquis 5 mg p.o. twice daily (3) BPH (benign prostatic hyperplasia) Assessment/Plan: On finasteride 5 mg p.o. daily and tamsulosin 0.4 mg p.o. daily. (4) Urinary retention Assessment/Plan: Likely secondary to BPH. Patient is on finasteride and tamsulosin. Patient had chronic Rodriguez catheter in place which was malfunctioning. Despite the catheter he still had over 500 mL of urine in the bladder. Rodriguez catheter was changed this morning. (5) Left-sided weakness Assessment/Plan: This is residual effect from patient's CVA and exacerbated by seizure activity. Patient was transition to the swing bed for 2 weeks of rehab. Physical therapy and Occupational Therapy to assess and treat patient. (6) Hypertension Assessment/Plan: On lisinopril and carvedilol. (7) Constipation Assessment/Plan: Patient was given lactulose yesterday. Patient had a bowel movement later in the afternoon today. As a result of straining due to constipation he had rectal prolapse. This was reduced. - Current Meds Current Meds: Current Medications Generic Name Dose Route Start Last Admin Trade Name Freq PRN Reason Stop Dose Admin Acetaminophen 650 mg 06/02/21 17:59 06/12/21 13:57 Acetaminophen 325 Mg Tablet PO 650 mg Q4HR PRN Administration Pain 1 to 4 Apixaban 5 mg 06/03/21 21:00 06/12/21 13:58 Apixaban 5 Mg Tablet PO 5 mg BID PHAN Administration Carvedilol 3.125 mg 06/02/21 21:00 06/12/21 13:58 Carvedilol 3.125 Mg Tablet PO 3.125 mg BID PHAN Administration Docusate Sodium 250 - 500 mg 06/08/21 09:00 06/12/21 13:58 Docusate Sodium 250 Mg Capsule PO 250 mg DAILY PHAN Administration Finasteride 5 mg 06/03/21 09:00 06/12/21 13:59 Finasteride 5 Mg Tablet PO 5 mg DAILY PHAN Administration Levetiracetam 1,000 mg 06/03/21 09:00 06/12/21 13:58 Levetiracetam 250 Mg Tablet PO 1,000 mg BID PHAN Administration Lisinopril 20 mg 06/03/21 09:00 06/12/21 13:58 Lisinopril 20 Mg Tablet PO 20 mg DAILY PHAN Administration Oxcarbazepine 600 mg 06/02/21 21:00 06/12/21 13:57 Oxcarbazepine 150 Mg Tablet PO 600 mg BID PHAN Administration Polyethylene Glycol 17 gm 06/07/21 09:00 06/12/21 13:34 Polyethylene Glycol 3350 17 Gm Packet PO 17 gm DAILY PHAN Administration Senna 8.6 - 17.2 mg 06/08/21 09:00 06/12/21 13:59 Senna 8.6 Mg Tablet PO 8.6 mg DAILY PHAN Administration Tamsulosin HCl 0.4 mg 06/03/21 09:00 06/12/21 13:59 Tamsulosin 0.4 Mg Capsule PO 0.4 mg DAILY PAHN Administration - Lab Result Fish Bone Diagrams: 06/07/21 05:30 06/07/21 05:30 Subjective - Subjective Patient Reports: Other (Patient had rectal protrusion earlier this morning from straining while trying to have a bowel movement. He also complained of needing to pee despite a Rodriguez catheter in place. Bladder scan showed over 500 mils. He denied any other complaints.) Objective Vital Signs: Vital Signs - 24 hr 06/12/21 06/12/21 06/12/21 06:42 14:05 15:59 Temperature 36.4 C L 36.8 C Heart Rate [ 85 85 Brachial] Heart Rate [ 93 Monitoring electrodes] Respiratory 18 16 Rate Blood Pressure 103/69 [Left Radial artery] Blood Pressure 117/54 L 113/42 L [Right Radial artery] O2 Saturation 97 98 Oxygen O2 Source Room air I&O (Last 24 Hrs): Intake and Output Totals x24h 06/10/21 06/11/21 06/12/21 23:59 23:59 23:59 Intake Total 4777 541 8743 Output Total 600 475 675 Balance 408 125 367 General: Alert, No acute distress, Other (oriented X2) HEENT: Atraumatic, PERRLA, EOMI Neck: Supple, No JVD Neuro: Alert Cardiovascular: Regular rate, No murmurs Respiratory: Chest non-tender, No respiratory distress, Breath sounds nml Abdomen: Normal bowel sounds, Soft, No tenderness, No masses Rectal: Other (rectal protrusion/prolasps) Extremities: No clubbing, No cyanosis, No edema Skin: No rashes, No breakdown - Results Results: Laboratory Results WBC 7.9 x10^3/uL (4.8-10.8) 06/07/21 05:30 RBC 3.44 10^6/uL (4.70-6.10) L 06/07/21 05:30 Hgb 10.0 g/dL (14.0-18.0) L 06/07/21 05:30 Hct 30.1 % (42.0-52.0) L 06/07/21 05:30 MCV 87.5 fL (80.0-94.0) 06/07/21 05:30 MCH 29.1 pg (27.0-31.0) 06/07/21 05:30 MCHC 33.2 g/dL (32.0-36.0) 06/07/21 05:30 RDW 13.9 % (12.0-15.0) 06/07/21 05:30 Plt Count 279 10^3/uL (130-450) 06/07/21 05:30 MPV 8.4 fL (7.4-11.4) 06/07/21 05:30 Neut # (Auto) 5.4 10^3/uL (1.5-6.6) 06/07/21 05:30 Lymph # (Auto) 1.5 10^3/uL (1.5-3.5) 06/07/21 05:30 [place] # (Auto) 0.6 10^3/uL (0.0-1.0) 06/07/21 05:30 Eos # (Auto) 0.2 10^3/uL (0.0-0.7) 06/07/21 05:30 Baso # (Auto) 0.1 10^3/uL (0.0-0.1) 06/07/21 05:30 Absolute Nucleated RBC 0.00 x10^3/uL 06/07/21 05:30 Nucleated RBC % 0.0 /100WBC 06/07/21 05:30 Sodium 132 mmol/L (135-145) L 06/07/21 05:30 Potassium 4.2 mmol/L (3.5-5.0) 06/07/21 05:30 Chloride 99 mmol/L (101-111) L 06/07/21 05:30 Carbon Dioxide 25 mmol/L (21-32) 06/07/21 05:30 Anion Gap 8.0 (6-13) 06/07/21 05:30 BUN 36 mg/dL (6-20) H 06/07/21 05:30 Creatinine 1.1 mg/dL (0.6-1.2) 06/07/21 05:30 Estimated GFR (MDRD) 64 (>89) L 06/07/21 05:30 Glucose 95 mg/dL (70-100) 06/07/21 05:30 Calcium 8.8 mg/dL (8.5-10.3) 06/07/21 05:30 ABX Reporting Has patient been on IV antibiotics over the past 48 hours?: No
[2021-06-13] MEDS: OXcarbazepine 150 MG TABLET PO SCH ×2 (07:48→19:58)
[2021-06-13] MEDS: ACETAMINOPHEN 325 MG TABLET PO PRN ×2 (07:49→19:58)
[2021-06-13] MEDS: levETIRAcetam 250 MG TABLET PO SCH ×2 (07:49→19:57)
[2021-06-13] MEDS: FINASTERIDE 5 MG TABLET PO SCH (11:06)
[2021-06-13] MEDS: DOCUSATE SODIUM 250 MG CAPSULE PO SCH (11:06)
[2021-06-13] MEDS: SENNA 8.6 MG TABLET PO SCH (11:06)
[2021-06-13] MEDS: carvediloL 3.125 MG TABLET PO SCH ×2 (11:06→19:57)
[2021-06-13] MEDS: lisinopriL 20 MG TABLET PO SCH (11:07)
[2021-06-13] MEDS: polyethylene glycoL 3350 17 GM PACKET PO SCH (11:07)
[2021-06-13] MEDS: APIXABAN 5 MG TABLET PO SCH ×2 (11:07→19:57)
[2021-06-13] MEDS: TAMSULOSIN 0.4 MG CAPSULE PO SCH (11:07)
[2021-06-14] MEDS: ACETAMINOPHEN 325 MG TABLET PO PRN ×2 (07:28→20:59)
[2021-06-14] MEDS: OXcarbazepine 150 MG TABLET PO SCH ×2 (09:08→20:59)
[2021-06-14] MEDS: levETIRAcetam 250 MG TABLET PO SCH ×2 (09:09→20:59)
[2021-06-14] MEDS: SENNA 8.6 MG TABLET PO SCH (09:11)
[2021-06-14] MEDS: DOCUSATE SODIUM 250 MG CAPSULE PO SCH (09:11)
[2021-06-14] MEDS: carvediloL 3.125 MG TABLET PO SCH ×2 (09:11→20:59)
[2021-06-14] MEDS: TAMSULOSIN 0.4 MG CAPSULE PO SCH (09:11)
[2021-06-14] MEDS: APIXABAN 5 MG TABLET PO SCH ×2 (09:11→20:59)
[2021-06-14] MEDS: polyethylene glycoL 3350 17 GM PACKET PO SCH (09:13)
[2021-06-14] MEDS: lisinopriL 20 MG TABLET PO SCH (09:13)
[2021-06-14] MEDS: FINASTERIDE 5 MG TABLET PO SCH (09:13)
[2021-06-15] MEDS: ACETAMINOPHEN 325 MG TABLET PO PRN ×2 (06:42→21:12)
[2021-06-15] MEDS: OXcarbazepine 150 MG TABLET PO SCH ×2 (08:50→21:12)
[2021-06-15] MEDS: levETIRAcetam 250 MG TABLET PO SCH ×2 (08:51→21:12)
[2021-06-15] MEDS: DOCUSATE SODIUM 250 MG CAPSULE PO SCH (08:52)
[2021-06-15] MEDS: lisinopriL 20 MG TABLET PO SCH (08:53)
[2021-06-15] MEDS: polyethylene glycoL 3350 17 GM PACKET PO SCH (08:53)
[2021-06-15] MEDS: SENNA 8.6 MG TABLET PO SCH (08:53)
[2021-06-15] MEDS: APIXABAN 5 MG TABLET PO SCH ×2 (08:53→21:13)
[2021-06-15] MEDS: TAMSULOSIN 0.4 MG CAPSULE PO SCH (08:53)
[2021-06-15] MEDS: FINASTERIDE 5 MG TABLET PO SCH (08:54)
[2021-06-15] MEDS: carvediloL 3.125 MG TABLET PO SCH ×2 (08:54→21:13)
[2021-06-16] MEDS: levETIRAcetam 250 MG TABLET PO SCH ×2 (08:23→20:33)
[2021-06-16] MEDS: OXcarbazepine 150 MG TABLET PO SCH ×2 (08:27→20:33)
[2021-06-16] MEDS: APIXABAN 5 MG TABLET PO SCH ×2 (08:31→20:33)
[2021-06-16] MEDS: carvediloL 3.125 MG TABLET PO SCH ×2 (08:32→20:33)
[2021-06-16] MEDS: FINASTERIDE 5 MG TABLET PO SCH (08:34)
[2021-06-16] MEDS: TAMSULOSIN 0.4 MG CAPSULE PO SCH (08:34)
[2021-06-16] MEDS: SENNA 8.6 MG TABLET PO SCH (08:36)
[2021-06-16] MEDS: DOCUSATE SODIUM 250 MG CAPSULE PO SCH (08:38)
[2021-06-16] MEDS: lisinopriL 20 MG TABLET PO SCH (08:45)
[2021-06-16] MEDS: polyethylene glycoL 3350 17 GM PACKET PO SCH (08:46)
[2021-06-16] MEDS: ACETAMINOPHEN 325 MG TABLET PO PRN (20:33)
[2021-06-17] MEDS: FINASTERIDE 5 MG TABLET PO SCH (08:36)
[2021-06-17] MEDS: levETIRAcetam 250 MG TABLET PO SCH (08:36)
[2021-06-17] MEDS: lisinopriL 20 MG TABLET PO SCH (08:36)
[2021-06-17] MEDS: DOCUSATE SODIUM 250 MG CAPSULE PO SCH (08:36)
[2021-06-17] MEDS: SENNA 8.6 MG TABLET PO SCH (08:36)
[2021-06-17] MEDS: polyethylene glycoL 3350 17 GM PACKET PO SCH (08:36)
[2021-06-17] MEDS: APIXABAN 5 MG TABLET PO SCH (08:36)
[2021-06-17] MEDS: carvediloL 3.125 MG TABLET PO SCH (08:36)
[2021-06-17] MEDS: TAMSULOSIN 0.4 MG CAPSULE PO SCH (08:36)
[2021-06-17] MEDS: OXcarbazepine 150 MG TABLET PO SCH (08:37)
[2021-06-17 08:48] VITALS: BP 134/86
--- NOTE | 2021-06-17 16:39 | Discharge Plan ---
Discharge Plan Problem Reviewed?: Yes Disposition: Home Health Service Condition: Fair Prescriptions: Docusate Sodium 250Mg Capsule [Colace 250Mg Capsule] 500 mg PO DAILY #60 cap levETIRAcetam [Keppra] 1,000 mg PO BID #240 tablet Diet: Regular Activity Restrictions: Activity as Tolerated Shower Restrictions: No Driving Restrictions: Yes Weight Bearing: Full Weight Instruction Topics: Catheter Bag Urinary Empty Clean, Leg Bag Care Dc, Catheter Rodriguez Boy Health Concerns: The patient was here with seizures, stroke, dementia, urinary retention from obstruction, gets constipated often and is very hard of hearing. He is going home with a Ordriguez catheter. He is going home with Home Health ordered for PT, OT, RN and Bath Aide. Please take the current list of medications, which have now been keeping him stable. A Palliative Care referral has been sent, as you requested. Plan of Treatment: As above. Care Goals: Improvement in symptoms and stabilization are the goals. Assessment: Written instructions are for reminders. Additional Instructions or Follow Up instructions: If the patient has new or worsening symptoms, please call the Primary Care Provider for advice or come to the ER. Please have an office visit with the patient's PCP in 1-4 weeks. Abdoul needs a referral to a Urologist [facility]. Follow-Up Care: Home Health - RN, Home Health - PT, Home Health - OT, Home Health - ST No Smoking: If you smoke, Please STOP! Call for help. Follow-up with: Flavia Nuñez PA-C [Primary Care Provider] -
--- NOTE | 2021-06-17 16:53 | DISCHARGE SUMMARY ---
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 He was admitted to [facility] on 04/13/1932 after e xperiencing a generalized tonic clonic seizure. He was obtunded on presentation, underwent CT of the head and neck CT angiogram that were unremarkable except for old stroke in the right parietal region at that time of admission the patient was presented neurologist [employer] who advised Keppra loading and to increase his Keppra dose from 750 extended release to 1000 mg extended release daily. Patient was admitted and treated. Over the course of his hospital still he had several seizures. This episodes were followed by left-sided weakness for which he repeatedly undergo went imaging. Repeat imaging were negative for any acute intracranial process. Patient's seizures were finally successfully controlled over his hospital stay by adding Trileptal 600 mg p.o. twice daily. However due to extended stay in the hospital patient required significant rehab. There appeared to be some significant decline in patient's overall function and cognitive ability which waxed and waned. This significantly affected the patient's disposition. After significant effort on the part of social work, the patient was discharged from the hospital and transitioned to swing bed (SNF) at [facility] for a pl anned 2-week period of stay for PT rehab. This was done on 06/03/2021. At bedside he is resting comfortably. He denies any significant complaints. Left upper extremity weakness and a tremor is appreciable and he is GILA R[place]. A Rodriguez is in place. - HOSPITAL COURSE Hospital Course: (1) Seizure as late effect of cerebrovascular accident (CVA) He was kept on the new meds/combination that kept his seizures controlled: Trileptal 600 mg p.o. twice daily and Keppra 1000 mg p.o. twice daily, and was discharged on these. He also needs constant cuing during ambulation and toileting, ever since the stroke. (2) Afib He was kept on Coreg 3.125 mg p.o. twice daily and Eliquis 5 mg p.o. twice daily (3) BPH (benign prostatic hyperplasia) He was kept on Finasteride 5 mg p.o. daily and Tamsulosin 0.4 mg p.o. daily and a Rodriguez was in place, which needed to be changed per protocol. He needs a referral to Urology to manage further. (4) Left-sided weakness This is residual effect from patient's CVA and exacerbated by seizure activity. He got daily or twice daily, 2 weeks of Physical Therapy and Occupational Therapy and discharged to get Home Health PT, OT, and RN and Bath Aide for the home. The and daughter made efforts by visiting to learn how he now walks and what help he needs. (5) Hypertension He was kept on lisinopril and carvedilol. (6) Constipation This caused him several episodes of severe abdominal and pelvic pain. He needed various forms of management. (7) GILA RIVER He is very GIL[place] RIVER. - ALLERGIES Allergies/Adverse Reactions: Allergies Allergy/AdvReac Type Severity Reaction Status Date / Time No Known Drug Allergies Allergy Verified 04/13/21 12:38 - MEDICATIONS Home Medications: Ambulatory Orders Medication Instructions Recorded Confirmed carvediloL [Coreg] 3.125 mg PO BID #60 tablet 10/25/19 06/04/21 Apixaban [Eliquis] 5 mg PO BID 04/13/21 06/04/21 Finasteride [Proscar] 5 mg PO DAILY 04/13/21 06/04/21 Lisinopril [Zestril] 20 mg PO DAILY 04/13/21 06/04/21 Tamsulosin [Flomax] 0.4 mg PO DAILY 04/13/21 06/04/21 Docusate Sodium 250Mg Capsule 500 mg PO DAILY #60 cap 06/17/21 [Colace 250Mg Capsule] OXcarbazepine [Trileptal] 600 mg PO BID #60 tablet 06/17/21 levETIRAcetam [Keppra] 1,000 mg PO BID #240 tablet 06/17/21 - PHYSICAL EXAM AT DISCHARGE General Appearance: positive: No acute distress, Alert, Other (Cachectic , male pattern baldness) Eyes Bilateral: positive: Normal inspection, PERRL, EOMI ENT: positive: ENT inspection nml, No signs of dehydration, Other (G[place] R[place]) Neck: positive: Nml inspection, Thyroid nml, No JVD Respiratory: positive: No respiratory distress, Breath sounds nml Cardiovascular: positive: Regular rate & rhythm, No murmur Abdomen: positive: Non-tender, Nml bowel sounds, No distention Rectal: positive: Other (Rodriguez in place with a leg bag) Skin: positive: Warm, Dry Extremities: positive: Non-tender, No pedal edema Neurologic/Psychiatric: positive: Disoriented to time, Other (L arm weak and has an intermittent resting tremor, chin also has intermittent tremor. Eyes squinting.) - LABS Result Diagrams: 06/07/21 05:30 06/07/21 05:30 - DIAGNOSTIC IMAGING Diagnostic Imaging Results: Final report reviewed - FOLLOW UP Follow Up: See PCP in 1-4 weeks, and needs referral to Urology. A referral to Palliative Care was sent prior to discharge, for him to be seen as an outpatient. - TIME SPENT Time Spent in Discharge (Minutes): 45
== END 2021-06-17 18:15 | disposition home health service (06) | DRG 57 ==
LOC: MS2 06-02 13:52
PROVIDERS: ADMIT Internal Medicine; ATTEND Internal Medicine
DX: I69.998 Other sequelae following unspecified cerebrovascular disease (principal); G40.802 Other epilepsy, not intractable, without status epilepticus; I69.954 Hemiplegia and hemiparesis following unspecified cerebrovascular disease affecting left non-dominant side; I11.0 Hypertensive heart disease with heart failure; I50.9 Heart failure, unspecified; N40.1 Benign prostatic hyperplasia with lower urinary tract symptoms; R33.8 Other retention of urine; I48.91 Unspecified atrial fibrillation; Z79.01 Long term (current) use of anticoagulants; H91.90 Unspecified hearing loss, unspecified ear; K59.00 Constipation, unspecified; Z79.899 Other long term (current) drug therapy; R53.1 Weakness; Z66 Do not resuscitate; K62.3 Rectal prolapse
CPT/HCPCS: 36415; 80048; 85025

== ENCOUNTER 2021-07-16 11:00 | Outpatient (CLI) | payer MEDICARE ==
--- NOTE | 2021-07-16 15:18 | CONSULTATION NOTE ---
Palliative Care Consultation - Referral Referring Provider: Kailee Nuñez PA-C Time of Visit: 9531-3197 Referral setting: Home Referral Reason: CVA/Seizure Disorder/Cognitive Decline - Information Sources Records reviewed: Previous records reviewed History/Review of Systems obtained from: Patient, Family (spouse, Gonzalo and daughter, Sandra) Exam limitations: Clinical condition (+TOLOWA DEE-NI') - History of Present Illness Brief History of Present Illness: This is an 80-year-old gentleman who was seen evaluated today for initial palliative care consultation within his home due to CVA with residual effects and seizure disorder with his spouse and daughter, Tal present. Provider wore N95 mask. Patient's family reports that he has had a relative fully healthy life until recently. In October 2019 he sustained a right parietal stroke with subsequent left-sided focal seizures. Was reported to have returned back to his baseline function developed. Then in May 2020 he sustained more seizure activity and was on Keppra. He was evaluated at [facility] during this evaluation. There have been no causes found per family's report.Then in March the patient experienced a general tonic-clonic seizure and was admitted to [facility] where he was admitted and treated. He had several seizures over the course of his hospital stay and his Keppra dose was increased and was added on Trileptal. He required significant rehab however, there were no beds available and thus the patient went home With home health physical therapy and Occupational Therapy services. He had a significantly lengthy stay from March 2021 to June 2021. During that time, the patient spouse and daughter report that he has had significant decline in his overall function and cognitive ability. Since returning home, he has finally begun to settle back into routine however, he has not left his house since returning home on June 17, 2021. He is no longer reading. He forgets the questions that he has asked and will perseverate and fixate on objects and it is difficult to distract him. He also will get into a fixation regarding food. Since his last hospitalization he has had intermittent hallucinations per family report. He periodically has falls without injury. There are concerns regarding the margaerth ent's spouse assisting with the patient has fallen and lift assist was reviewed at length today. Since returning home, the patient has not had any seizure activity with his present regimen. The patient has a history of urinary retention that is several years and history. He was intermittently self cathing himself approximately once per month. He then "injured his bladder" and therefore of Harrison catheter was placed. He is maintained on Flomax. He has been seen and evaluated by urology in the past with no abnormalities noted per patient's spouse and daughter. He would have these episodes of acute urinary retention with the most retaining 1 L of volume in the bladder that resulted in emergency department visit several years ago. Since his last hospitalization and seizure activity the patient has had left hand swelling and repetitive motions that resulted in discomfort that has responded well to utilization of a wrist brace. The swelling has not gone down. He is right-handed. 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 Patient is seen dressed in multiple layers as he is frequently chilled, well groomed in his recliner chair with no evidence of acute distress. Medical/Surgical History - Past Medical History Cardiovascular: reports: Congestive heart failure, Hypertension, Atrial fibrillation Respiratory: reports: None Neuro: CVA (Right parietal CVA October 2019) Neuro: reports: CVA, Seizure disorder Endocrine/Autoimmune: reports: None : reports: Benign prostate hypertrophy, Retention HEENT: reports: Chronic hearing loss Psych: reports: None Musculoskeletal: reports: None - Past Surgical History General: reports: Other (+hernia repair) - Substance History Use: Uses substance without health or social issues: Cannabis (Spouse reports years of marijuana use daily for decades but none for several weeks "and I don't miss it.") Social History - Living Situation Living arrangement: At home Living Situation: With spouse/s.o. Support System: Patient grew up in [facility] [place]Note 3]. He has performed various jobs throughout his career. Passion of his has been gardening and has always worked outside. He has been an avid chess player as well as a reader. His is a retired reference and instruction librarian. However, after his last seizure activity he is no longer reading. He served in the [place]. The patient and his spouse relocated to [facility] to be closer to their daughters approximately 5 years ago. They are patient daughters live nearby and provide assistance with Tal on Mondays and both daughters during the weekend. They also have 2 private caregivers Luis Carlos and Missy who come 2 days/week. There is a small dog, Jovanni, who resides in the home. Spouse does not drive. The [facility]. Family History - Family History Family History: Mother: , Father: Family History Comment/Other: Father from unknown causes, mother at age 95 due to "old age. No siblings. Medications/Allergies - Medications Home Medications: Ambulatory Orders Medication Instructions Recorded Confirmed carvediloL [Coreg] 3.125 mg PO BID #60 tablet 10/25/19 07/16/21 Apixaban [Eliquis] 5 mg PO BID 04/13/21 07/16/21 Finasteride [Proscar] 5 mg PO DAILY 04/13/21 07/16/21 Lisinopril [Zestril] 20 mg PO DAILY 04/13/21 07/16/21 Tamsulosin [Flomax] 0.4 mg PO DAILY 04/13/21 07/16/21 Docusate Sodium 250Mg Capsule 500 mg PO DAILY #60 cap 06/17/21 07/16/21 [Colace 250Mg Capsule] OXcarbazepine [Trileptal] 600 mg PO BID #60 tablet 06/17/21 07/16/21 levETIRAcetam [Keppra] 1,000 mg PO BID #240 tablet 06/17/21 07/16/21 - Allergies Allergies/Adverse Reactions: Allergies Allergy/AdvReac Type Severity Reaction Status Date / Time No Known Drug Allergies Allergy Verified 04/13/21 12:38 Review of Systems - Constitutional Constitutional: reports: Weight gain. denies: Fever, Poor appetite - Eyes Eyes: denies: Vision loss - Ears, Nose & Throat Ears, Nose & Throat: reports: Hearing loss, Hearing aids (Over the years has been trialed on multiple different hearing aid sets that were ineffective and therefore, the patient does not wear hearing aids. Speaking into his right ear is most effective.). denies: Dentures - Cardiovascular Cardiovascular: reports: Edema (intermittent pedal bilaterally). denies: Chest pain - Respiratory Respiratory: denies: Cough, Wheezing - Gastrointestinal Gastrointestinal: reports: Good appetite (chopped, soft foods). denies: Abdominal pain, Constipation (controlled with colace), Vomiting - Genitourinary Genitourinary: reports: Other (harrison catheter in place) - Musculoskeletal Musculoskeletal: reports: Assistive devices (walker), Other (history of falls). denies: Muscle pain - Integumentary Integumentary: denies: Rash - Neurological Neurological: reports: General weakness, Memory problems (see HPI), Seizures. denies: Headache - Psychiatric Psychiatric: reports: Hallucinations (intermittent, see HPI) - Endocrine Endocrine: denies: Diabetes type 2 - Hematologic/Lymphatic Hematologic/Lymph: denies: Recurrent infections - All Other Systems All Other Systems: reports: Reviewed and negative (ROS obtained from patient's family due to patient being TOLOWA DEE-NI' and poor historian due to waxing and waning cognitive ability.) Physical Exam - Vital Signs Temperature: 36.7 C Pulse Rate: 80 O2 Saturation: 97 Blood Pressure: 110/60 (right wrist) - Physical Exam General Appearance: positive: No acute distress, Alert, Other (appears stated age) Eyes Bilateral: positive: Normal inspection, PERRL ENT: positive: No signs of dehydration, Other (+endentulous) Neck: positive: No JVD, Trachea midline Cardiovascular: positive: Regular rate & rhythm Respiratory: positive: No respiratory distress, Breath sounds nml Abdomen: positive: Non-tender, Soft, Nml bowel sounds, Other (+harrison draining clear, yellow urine). negative: Distended Skin: positive: Dryness Extremities: positive: No pedal edema, Other (Left hand with mild swelling without erythema and left wrist brace in place that is not too tight.) Neurologic/Psychiatric: positive: Oriented x3, Mood/affect nml, Weakness (Left sided weakness appreciated), Other (Followed commands.) Palliative Care - POLST Patient has POLST: Yes POLST Status: DNR, Comfort Measures Pain: No pain - Palliative Care Discussion: The patient has been relatively healthy and to who he unfortunately sustained a CVA in [place] 2019 with subsequent seizure disorder. Since that time he has been hospitalized on 2 other occasions due to seizure activity and adjustments of his antiepileptic medications.Since returning home from his last hospitalization he has not had any seizure activity however, he has had significant functional and cognitive decline. He is presently being supported by home health physical therapy and Occupational Therapy. His cognition will wax and wane with some days being sharp and other days fall without recognizing his family. There has been some stabilization since returning home over the last month once he has been reestablished in a routine. The patient's family recognizes that he has experienced significant decline. They were advised 6 months to a year however, given the patient appears to have had some stabilization since returning back to his home environment will need to see where he lands in order to prognosticate moving forward. In the setting of this at the family wishes to focus on comfort measures within the home environment and avoid transfer to the hospital and if an event were to occur would wish to transition to hospice services when appropriate. He does have a POLST in place that reflects DN AR/D and I with comfort measures. The patient spouse has been shouldering a significant amount of caregiver burden with support from some paid caregivers as well as third daughters. However, she would benefit from additional support also in the setting that she does not drive. Impression and Recommendations - Palliative Care Impression: This is a aurelia 80-year-old gentleman who has unfortunately sustained a CVA with residual effects with left-sided weakness and seizure disorder who has required several hospitalizations due to seizure activity presently stabilized. However, due to the above stated medical disorders he has deteriorated functionally and cognitively. The patient's family wishes to optimize his abilities functionally within the home to focus on comfort measures. Palliative care will continue to tease out goals of care, provide care coordination, symptom management and anticipatory guidance with transition to hospice services when medically appropriate. Recommendations/Counseling Done: 1. CVA with residual effect. Occurred in October 2019. Chronic/Progressive. Supportive care. Continue secondary preventative measures for stroke in optimizing BP control, and anticoagulation with eliquis. 2. 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 No other underlying causes found for her seizure disorder per family report. Since last hospitalization has been without seizure activity. Presently controlled with Keppra 1000 mg twice daily and Trileptal 600mg BID. Seizure precautions. 3. History of fall due to CVA with residual effect. Presently supported by [facility] physical therapy and Occupational Therapy. Fall precautions. Encouraged to use walker with ambulation. If fall occurs encourage patients spouse to utilize lift assist and contact number provided. Falls likely unavoidable due to left-sided weakness. 4. Caregiver burden. Patient's spouse provides the bulk of caregiver burden. Con cerns regarding her home capabilities with maintaining into the future and looking at advanced care planning for additional support. Presently supported by 2 paid caregivers as well as daughters within the home. We will also request palliative care volunteer to provide additional respite. The patient's spouse reports he would not qualify for [place] PES due to finances. 5. Urinary retention with history of BPH. Previously followed by urology. Presently on Proscar and tamsulosin in the setting of BPH.Presently with Harrison catheter in place and would recommend continued Harrison catheter for comfort and due to patient's waxing and waning cognition.. Presently supported by home health nursing. 6. Cognitive decline in the setting of CVA. Waxing and wanes. Presently sharp today. Continue to provide support. Continue to monitor. 6. Advanced Care Planning. Family's goals are to focus on comfort measures within the home environment and to avoid hospitalization. Recognize significant decline that has occurred over the last several months. We will continue to provide support and tease out additional goals of care. CC: [facility] Total time spent 80 minutes with greater than 50% of this spent in counseling and coordination of care with patient, spouse and daughter Sandra; palliative and hospice philosophy; volunteer support; review of pain and symptom management and anticipatory guidance. Disclaimer: The chart note was formulated using voice recognition technology and unfortunately sound alike errors may occur.
== END 2021-07-16 11:01 | disposition home or self-care (01) ==
LOC: PC 11:00
PROVIDERS: ATTEND Nurse Practitioner Family
DX: Z51.5 Encounter for palliative care (principal); I69.354 Hemiplegia and hemiparesis following cerebral infarction affecting left non-dominant side; I11.0 Hypertensive heart disease with heart failure; I50.9 Heart failure, unspecified; I48.91 Unspecified atrial fibrillation; I69.398 Other sequelae of cerebral infarction; G40.802 Other epilepsy, not intractable, without status epilepticus; I69.310 Attention and concentration deficit following cerebral infarction; I69.311 Memory deficit following cerebral infarction; N40.1 Benign prostatic hyperplasia with lower urinary tract symptoms; R33.8 Other retention of urine; Z79.899 Other long term (current) drug therapy; Z79.01 Long term (current) use of anticoagulants; Z91.81 History of falling; Z74.8 Other problems related to care provider dependency; Z66 Do not resuscitate
CPT/HCPCS: 99345

== ENCOUNTER 2021-08-15 11:30 | Outpatient (CLI) | payer MEDICARE ==
--- NOTE | 2021-08-15 17:27 | CONSULTATION NOTE ---
Palliative Care Follow Up - Referral Referring Provider: Flavia Nuñez PA-C Time of Visit: [id number] Referral setting: Home Referral Reason: CVA/Debility/Impacted cerumen/Cognitive decline - Information Sources Records reviewed: Previous records reviewed History/Review of Systems obtained from: Patient, Family (spouse, Gonzalo) Exam limitations: Clinical condition (+ROUND [place]LEY) - History of Present Illness Update Brief HPI Update: This is an 80-year-old gentleman who is seen in follow-up today within his home due to history of CVA with residual effects, seizure disorder, cognitive decline, and cerumen impaction with his spouse, Gonzalo present. Provider wore N95 mask. The patient in in October 2019 he sustained a right parietal stroke with subsequent left sided focal seizures. He then returned back to his baseline. Then again, in May 2020 he sustained more seizure activity and was placed on Keppra. He was evaluated at [facility] and there was no cause found by the family's report. Then in March 16/2021 the patient experienced a general tonic-clonic seizure and was admitted to [facility] and treated. He had several seizures over the course of his hospital stay and his Keppra dose was increased and was added on Trileptal. He required significant rehab however as there were no beds available he went home with home health physical therapy and Occupational Therapy. He was recently discharged from both of these services. He returned home in June 2021. The patient spouse reports that he has good days and bad days regarding his cognition. There are days where he is "not there." She reports a good day would be when he is tracking and has an interest in something even if for short time. He tends to sleep better during the day. If he is awake during the night he will turn the TV on to alert his if he requires assistance. He continues to have a Harrison catheter in place due to urinary retention and will be followed by home health nursing for catheter changes. He continues to report some left wrist discomfort and was previously wearing a brace however, this was causing swelling to his hand and this was discontinued. The family has created a squeeze rag that the patient will hold onto having his wrist in a neutral position that alleviates any discomfort. Otherwise, he will have Tylenol administered 1-2 times per day if needed for discomfort on his left wrist or left foot. Patient is seen in his recliner chair, well groomed and alert with no evidence of acute distress. 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 Social History - Living Situation Living arrangement: At home Living Situation: With spouse/s.o. Support System: Patient grew up in [facility]. He performed various jobs throughout his career and his passion has been gardening and always working outside. He was an avid chess player as well as reader however, he is no longer reading. His is a retired museum librarian. He served in the [employer]. The patient and his spouse relocated to [facility] to be closer to their daughters approximately 5 years ago. Daughters provide assistance with care. They also have 2 private caregivers, Farhana cunningham, 2 days/week. There is a small dog, Jovanni who resides in the home. Spouse does not drive. Patient has established rapport with Korey, palliative care/waste duster. Patient spouse has not created a follow-up visit but will utilize this in the near future as she wishes to get outside and garden and this would provide assistance for her. Patient has be gone going out on the deck for the last couple weeks and restarting his smoking of cannabis and watching the birds. Patient and spouse participate in "sit and be fit" program every morning for 30 minutes. The patient is followed by [facility] home health nursing. Medications/Allergies - Medications Home Medications: Ambulatory Orders Medication Instructions Recorded Confirmed carvediloL [Coreg] 3.125 mg PO BID #60 tablet 10/25/19 07/16/21 Apixaban [Eliquis] 5 mg PO BID 04/13/21 07/16/21 Finasteride [Proscar] 5 mg PO DAILY 04/13/21 07/16/21 Lisinopril [Zestril] 20 mg PO DAILY 04/13/21 07/16/21 Tamsulosin [Flomax] 0.4 mg PO DAILY 04/13/21 07/16/21 Docusate Sodium 250Mg Capsule 500 mg PO DAILY #60 cap 06/17/21 07/16/21 [Colace 250Mg Capsule] OXcarbazepine [Trileptal] 600 mg PO BID #60 tablet 06/17/21 07/16/21 levETIRAcetam [Keppra] 1,000 mg PO BID #240 tablet 06/17/21 07/16/21 - Allergies Allergies/Adverse Reactions: Allergies Allergy/AdvReac Type Severity Reaction Status Date / Time No Known Drug Allergies Allergy Verified 04/13/21 12:38 Review of Systems - Constitutional Constitutional: reports: Fatigue (will nap during the day), Weight gain (Left MAC 23.5cm 08/15/2021). denies: Fever, Poor appetite - Ears, Nose & Throat Ears, Nose & Throat: reports: Hearing loss, Hearing aids (Over the years has been trialed on multiple different hearing aid sets that were ineffective and therefore, the patient does not wear hearing aids. Speaking into his right ear is most effective.). denies: Dentures - Cardiovascular Cardiovascular: reports: Edema (intermittent pedal bilaterally, most specifically left ankle). denies: Chest pain - Respiratory Respiratory: denies: Wheezing - Gastrointestinal Gastrointestinal: reports: Good appetite (chopped, soft foods--does not like fruits and veggies). denies: Abdominal pain, Constipation (controlled with colace), Vomiting - Genitourinary Genitourinary: reports: Other (harrison catheter in place) - Musculoskeletal Musculoskeletal: reports: Joint pain (left wrist, intermittent), Assistive devices (walker), Other (history of falls) - Integumentary Integumentary: denies: Rash - Neurological Neurological: reports: General weakness, Memory problems (see HPI), Seizures (No recent seizure activity). denies: Headache, Dizziness - Psychiatric Psychiatric: reports: Hallucinations (intermittent) - All Other Systems All Other Systems: reports: Reviewed and negative (ROS obtained from patient spouse as patient is [place] and poor historian due to waxing and waning cognitive ability.) Physical Exam - Vital Signs Temperature: 36.8 C Pulse Rate: 78 O2 Saturation: 96 Blood Pressure: 131/74 - Physical Exam General Appearance: positive: No acute distress, Alert, Other (appears stated age) Eyes Bilateral: positive: Normal inspection, PERRL ENT: positive: No signs of dehydration, Other (+endentulous; Dry, hard cerumen to b/l ear cannals and unable to view TM due to cerumen. Lighted currette and otoscope used and able to remove cerumen nfrom right ear cannal but not left. Right TM visualized and intact after procedure.) Neck: positive: Trachea midline Cardiovascular: positive: Regular rate & rhythm Respiratory: positive: No respiratory distress, Breath sounds nml Abdomen: positive: Non-tender, Soft, Nml bowel sounds, Other (+harrison draining slightly dark, yellow urine). negative: Distended Skin: positive: Dryness Extremities: positive: Pedal edema (trace only around left ankle (chronic)), Other (Left hand without tenderness to palpation or swelling) Neurologic/Psychiatric: positive: Oriented x3 (Impairment noted), Mood/affect nml, Weakness (Left sided weakness appreciated), Other (More alert and engaged than prior evaluations, but looks to spouse for assistance frequently) Palliative Care - POLST Patient has POLST: Yes POLST Status: DNR, Comfort Measures Pain: Comment (Intermittent left wrist pain controlled with tylenol) Feelings of wellbeing/Perceived Quality of Life: Good Sleep: Variable sleep pattern Constipation: Yes, Managed - Palliative Care Discussion: Patient has been doing fairly well since returning home after hospital discharge in June 2021. He has not to his former baseline and his cognition will wax and wane. Fortunately, he has not had any further seizure activity since he has returned home. He has significant impacted cerumen to his bilateral ears and unfortunately, was only able to extract the cerumen from his right ear canal. Prior to next evaluation we will have the spouse place Debrox otic drops in the left ear to soften the cerumen before second attempt of extraction. Patient reported some improvement in his hearing after removal of cerumen from his right ear. The patient's spouse continues to shoulder the bulk of the caregiver responsibilities but does have support from paid caregivers as well as her daughters. She is open to recontacting the palliative care volunteer to provide companionship and respite as she attends to duties in the yard. Impression and Recommendations - Palliative Care Impression: This is a aurelia 80-year-old gentleman who unfortunately sustained a CVA with residual effects with left-sided weakness and she is her disorder who is required several hospitalization due to seizure activity who has stabilized. He has impacted cerumen to bilateral ear canals and unfortunately, was only able to remove cerumen from right ear canal. He tolerated this well. Patient has had a significant functional decline from his former baseline but has stabilized. Family wishes to focus on comfort measures within the home. Palliative care will continue to provide care coordination, symptom management and anticipatory guidance with transition to hospice when medically appropriate. Recommendations/Counseling Done: 1. Impacted cerumen, bilateral ear canals. Able to remove impacted cerumen from right ear canal with lighted curette and otoscope with right TM visualized and intact and patient tolerated procedure well. Unfortunately, unable to remove cerumen from left ear canal. Advised spouse to obtain Debrox otic drops over-th e-counter and starting 5 days prior to next home evaluation on 09/19 to administer 5 drops in the left ear at night for five nights to soften and will attempt removal again at next home visit. 2. Caregiver burden. Patient spouse provides the bulk of caregiver burden. [place] drive and presently, relies on her daughters to assist with transportation. Also supported by two paid caregivers within the home. Requested that the patient's spouse reconnect with palliative care volunteer, Korey, to set up a schedule to provide companionship and respite. 3. CVA with residual effects. Occurred in October 2019. Chronic. Progressive. Supportive care. Continue secondary preventative measures for stroke and optimizing blood pressure control and anticoagulation with Eliquis. 4. Constipation. Controlled with utilization of Colace. Patient does not have a preference for fruits and vegetables. Continue to monitor and adjust bowel regimen as needed as sedentary lifestyle is contributing. 5. Cognitive decline in the setting of CVA. Waxes and wanes. Engaged and focused today however, still relies on spouse for assistance at times with answering questions. Continue to provide support and monitor. [facility] Total time spent 45 minutes with greater than 50% of the spent in counseling and coordination of care with the patient and his spouse, Gonzalo; hearing evaluation and cerumen removal removal; supportive and empathetic listening; examination of the patient; pain and symptom management as well as anticipatory guidance. Disclaimer: The chart note was formulated using voice recognition technology and unfortunately sound alike errors may occur.
== END 2021-08-15 11:31 | disposition home or self-care (01) ==
LOC: PC 11:30
PROVIDERS: ATTEND Nurse Practitioner Family
DX: Z51.5 Encounter for palliative care (principal); I69.354 Hemiplegia and hemiparesis following cerebral infarction affecting left non-dominant side; H61.23 Impacted cerumen, bilateral; K59.00 Constipation, unspecified; Z79.899 Other long term (current) drug therapy; Z79.01 Long term (current) use of anticoagulants; I48.91 Unspecified atrial fibrillation; I11.0 Hypertensive heart disease with heart failure; I50.9 Heart failure, unspecified; R53.83 Other fatigue; Z66 Do not resuscitate; M25.532 Pain in left wrist; I69.398 Other sequelae of cerebral infarction; R56.9 Unspecified convulsions; I69.318 Other symptoms and signs involving cognitive functions following cerebral infarction; Z74.1 Need for assistance with personal care
CPT/HCPCS: 99349

== ENCOUNTER 2021-09-19 09:30 | Outpatient (CLI) | payer MEDICARE ==
--- NOTE | 2021-09-19 13:22 | CONSULTATION NOTE ---
Palliative Care Follow Up - Referral Referring Provider: Flavia Freed PA-C Time of Visit: Referral setting: Home Referral Reason: Neuropathy/CVA/BLE swelling - Information Sources Records reviewed: Previous records reviewed History/Review of Systems obtained from: Patient, Family (spouse, Gonzalo) Exam limitations: Clinical condition (+LIME) - History of Present Illness Update Brief HPI Update: This is an 81-year-old gentleman who is seen in follow-up today within his home due to history of CVA with residual effects, cognitive decline, neuropathy, and lower extremity edema. Last week, received communication from home health nurse, Ella in regards to the patient having neuropathy symptoms most pacifically to his left leg and bilateral arms. He had been prescribed pregabalin 300 mg up to 3 times a day however, the spouse was not providing any of this. Advised spouse to initiate gabapentin 300 mg at bedtime and to reassess today. Spouse reports there has been an overall improvement with the patient's complaints. Intermittently he will have complaints of left shoulder pain but this resolves with utilization of as needed acetaminophen. Patient himself continues to report intermittent and pain more so in the mornings and therefore, would benefit from increase of gabapentin to 300 mg twice daily. Spouse reports that the patient is not sleeping well at night. She has not tried any medications [id number] or prescribed. The patient typically is ready to go to bed about approximately 8 PM and then will be in bed by 9 PM. He then typically gets up around 10:30 PM to watch TV. No recent falls. He is taking many naps throughout the day. He has been increasing his outside act ivity with going out on the porch and walking to the mailbox with an assistive device. He also has been developing lower extremity edema most pacifically to his feet. He has a diet focused on carbohydrates and meat and does not prefer vegetables or fruit. He also loves potato chips. He has had an increase of weight to 172 pounds. Spouse has not tried any lower extremity compression socks. 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 Social History - Living Situation Living arrangement: At home Living Situation: With spouse/s.o. Support System: Patient grew up in [facility]. He performed various jobs throughout his career and his passion has been gardening and always working outside. He was an avid chess player as well as reader however, he is no longer reading. His is a retired chemical librarian. He served in the [employer]. The patient and his spouse relocated to [facility] to be closer to their daughters approximately 5 years ago. Daughters provide assistance with care. They also have 2 private caregivers, Farhana Louis who, 2 days/week. There is a small dog, Jovanni who resides in the home. The patient is followed by [facility]. Supported by Korey Palliative care volunteer. Medications/Allergies - Medications Home Medications: Ambulatory Orders Medication Instructions Recorded Confirmed carvediloL [Coreg] 3.125 mg PO BID #60 tablet 10/25/19 07/16/21 Apixaban [Eliquis] 5 mg PO BID 04/13/21 07/16/21 Finasteride [Proscar] 5 mg PO DAILY 04/13/21 07/16/21 Lisinopril [Zestril] 20 mg PO DAILY 04/13/21 07/16/21 Tamsulosin [Flomax] 0.4 mg PO DAILY 04/13/21 07/16/21 Docusate Sodium 250Mg Capsule 500 mg PO DAILY #60 cap 06/17/21 07/16/21 [Colace 250Mg Capsule] OXcarbazepine [Trileptal] 600 mg PO BID #60 tablet 06/17/21 07/16/21 levETIRAcetam [Keppra] 1,000 mg PO BID #240 tablet 06/17/21 07/16/21 Gabapentin [Neurontin] 300 mg PO BID 09/12/21 09/12/21 Melatonin/Pyridoxine [Melatonin 5 5 mg PO QPM 09/20/21 09/20/21 mg Tablet] - Allergies Allergies/Adverse Reactions: Allergies Allergy/AdvReac Type Severity Reaction Status Date / Time No Known Drug Allergies Allergy Verified 04/13/21 12:38 Review of Systems - Constitutional Constitutional: reports: Fatigue (will nap during the day), Weight gain (Left MAC 23.5cm 08/15/2021; weight last month 172lb August 2021). denies: Fever, Poor appetite - Ears, Nose & Throat Ears, Nose & Throat: reports: Hearing loss, Hearing aids (Over the years has been trialed on multiple different hearing aid sets that were ineffective and therefore, the patient does not wear hearing aids. Speaking into his right ear is most effective.). denies: Dentures - Cardiovascular Cardiovascular: reports: Edema (b/l feet, see HPI). denies: Chest pain - Respiratory Respiratory: denies: Cough - Gastrointestinal Gastrointestinal: reports: Good appetite (chopped, soft foods--does not like fruits and veggies, see HPI). denies: Abdominal pain, Constipation (controlled with colace), Vomiting - Genitourinary Genitourinary: reports: Other (harrison catheter in place) - Musculoskeletal Musculoskeletal: reports: Joint pain (left shoulder, intermittent and responds to tylenol), Assistive devices (walker), Other (history of falls--none recent) - Neurological Neurological: reports: General weakness, Memory problems, Seizures (No recent seizure activity). denies: Headache - Psychiatric Psychiatric: reports: Hallucinations (intermittent), Other (Insomnia) - All Other Systems All Other Systems: reports: Reviewed and negative (ROS obtained from patient spouse as patient is LIME and poor historian due to waxing and waning cognitive ability.) Physical Exam - Vital Signs Temperature: 36.7 C Pulse Rate: 64 O2 Saturation: 96 (on RA) Blood Pressure: 127/74 - Physical Exam General Appearance: positive: No acute distress, Alert, Other (appears stated age, initially asleep and was arousable and engaged when awoken) Eyes Bilateral: positive: Normal inspection ENT: positive: No signs of dehydration, Other (+endentulous; Right TM visual, Left ear canal with soft, impacted cerumen unable to see TM) Neck: positive: Trachea midline Cardiovascular: positive: Regular rate & rhythm Respiratory: positive: No respiratory distress, Breath sounds nml Abdomen: positive: Non-tender, Soft, Nml bowel sounds, Other (+harrison draining slightly yellow urine) Skin: positive: Dryness Extremities: positive: Pedal edema (+1 B/l feet with left slightly greater than right from ankle and below) Neurologic/Psychiatric: positive: Oriented x3 (Impairment noted), Mood/affect nml, Weakness (Left sided weakness appreciated) Palliative Care - POLST Patient has POLST: Yes POLST Status: DNR, Comfort Measures Pain: Comment (Neuropathy symptoms improved with gabapentin 300 mg nightly would benefit from further increase to 300 mg twice daily of gabapentin.) - Palliative Care Discussion: Patient has been experiencing symptoms of peripheral neuropathy to his lower extremities and has had beneficial response to gabapentin 300 mg nightly but continues to have symptoms more specifically in the morning and therefore will increase to gabapentin 300 mg twice daily. The patient does periodically have perseverating behaviors most specifically revolving around weapons no longer being within the home given his cognitive status and then not being able to find the house. Patient spouse will attempt to distract and normalized this behavior per the patient's spouse given his history of CVA and cognitive deficits. Patient is also demonstrating signs and symptoms of insomnia. Will attempt trial of melatonin 5 mg nightly administered 1 hour prior to expected bedtime. Impression and Recommendations - Palliative Care Impression: This is a aurelia 81-year-old gentleman who unfortunately sustained a CVA with residual effects with left-sided weakness and cognitive impairment who has required several hospitalizations due to seizure activity which has stabilized. He is now having underlying neuropathy symptoms and has positive typically responded to initiation of gabapentin 300 mg at bedtime and would benefit from further dose titration to 300 mg twice daily of gabapentin. We will also trial melatonin 5 mg at bedtime for insomnia symptoms. Patient's family wishes to fo cus on comfort measures within the home. Palliative care will continue to provide care coordination, symptom management and anticipatory guidance with transition to hospice when medically appropriate. Recommendations/Counseling Done: 1. Peripheral neuropathy, bilateral lower extremities. Likely related to history of CVA with residual effects. Increase gabapentin to 300 mg twice daily. Set expectations with the patient and spouse that may titrate up to 3 times daily dosing in the future. We will continue to titrate slowly and based increase based on the patient's response. 2. Bilateral lower extremity edema specifically putatively from ankles and below. Salt intake is likely contributing factor. Request that home health nursing evaluate for Tubigrip's and supply with patient spouse to apply in the a.m. and remove in the evening. We will continue to monitor response. 3. Impacted cerumen, left ear canal. Unable to visualize TM today however, did not have equipment for cerumen removal today and will perform at next evaluation. Right ear canal remains without impacted cerumen. 4. Insomnia. Discussed with patient spouse attempt to lessen naps during the day to have in increased desire to sleep in the evening. Continue to engage in activities outside for assistance with sleep. Will trial melatonin 5 mg 1 hour prior to bedtime to promote sleep. Discussed dosage of melatonin above 5 mg may have stimulating effect with understanding verbalized. 5. Cognitive impairment in the setting of CVA. Waxes and wanes. Supportive and empathetic listening provided. To continue to be supported by palliative care volunteer. [facility] Total time spent 40 minutes with greater than 50% was spent in counseling and coordination of care with the patient and spouse; examination of patient; supportive listening; review of medication adjustments and dose, purpose, and side effects; and anticipatory guidance. Disclaimer: The chart note was formulated using voice recognition technology and unfortunately sound alike errors may occur.
== END 2021-09-19 09:31 | disposition home or self-care (01) ==
LOC: PC 09:30
PROVIDERS: ATTEND Nurse Practitioner Family
DX: Z51.5 Encounter for palliative care (principal); I69.854 Hemiplegia and hemiparesis following other cerebrovascular disease affecting left non-dominant side; I69.819 Unspecified symptoms and signs involving cognitive functions following other cerebrovascular disease; G62.9 Polyneuropathy, unspecified; R60.0 Localized edema; H61.22 Impacted cerumen, left ear; G47.00 Insomnia, unspecified; Z66 Do not resuscitate; R53.83 Other fatigue; N40.1 Benign prostatic hyperplasia with lower urinary tract symptoms; R33.8 Other retention of urine; I48.91 Unspecified atrial fibrillation; Z79.01 Long term (current) use of anticoagulants
CPT/HCPCS: 99349

== ENCOUNTER 2021-10-17 09:30 | Outpatient (CLI) | payer MEDICARE ==
--- NOTE | 2021-10-17 17:39 | CONSULTATION NOTE ---
Palliative Care Follow Up - Referral Referring Provider: Flavia Nuñez PA-C Time of Visit: Referral setting: Home Referral Reason: Weight gain/Tremors/Neuropathy/CVA - Information Sources Records reviewed: Previous records reviewed History/Review of Systems obtained from: Patient, Family (spouse, Gonzalo and daughter, Monica) Exam limitations: Clinical condition (+TATITLEK and mild STM impairment) - History of Present Illness Update Brief HPI Update: This is an 81-year-old gentleman who is seen in follow-up today within his home due to history of CVA with residual effects, cognitive decline, edema, neuropathy, now presenting with some parkinsonian-like symptoms with his spouse and daughter present. Provider wore N95 mask. On 10/10 this COURTESY DRIVER received communication from home health ANNE-MARIE Jaramillo reporting an increase in the patient's weight as well as 2+ edema to the patient's lower extremities and hands and fingers as well as shortness of breath with ambulation. He was initiated on furosemide 20 mg daily. Spouse has not noticed any change in the patient's reported "wheezing" when he is ambulating and continues to have edema to his lower extremities. Therefore will benefit from further dose adjustment of his furosemide. He has reduced his soda consumption however, will not reduce his chips consumption. Patient was presenting with increased discomfort related to neuropathy status post CVA most pacifically to his left upper arm and his gabapentin was increased to 300 mg 3 times a day on 10/03. He also has a prescription for Percocet with half a tablet and utilize once every few days. Otherwise, the patient's spouse reports that the patient's pain is increasingly controlled. He is also sleeping better at night per her report. Has sustained a fall earlier this week that resulted in scraping his right elbow. Spouse has been cleansing and applying a dressing without signs and symptoms of infection. Last week was noting that he was dragging his Left foot with ambulation and is no longer doing this. Has some recent difficulty with defecation had positive response to MiraLAX. There is no need for any further intervention. 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 Social History - Living Situation Living arrangement: At home Living Situation: With spouse/s.o. Support System: Patient grew up in [facility]Note 3]. He performed various jobs throughout his career and his passion has been gardening and always working outside. He was an avid chess player as well as reader however, he is no longer reading. His is a retired supervising librarian. He served in the [employer]. The patient and his spouse relocated to [facility] to be closer to their daughters approximately 5 years ago. Daughters provide assistance with care. They also have 2 private caregivers, Farhana and Missy who come for 4 hours 2 days/week. There is a small dog, Jovanni who resides in the home. The patient is followed by [facility] nursing. Supported by [facility] volunteer. Medications/Allergies - Medications Home Medications: Ambulatory Orders Medication Instructions Recorded Confirmed carvediloL [Coreg] 3.125 mg PO BID #60 tablet 10/25/19 07/16/21 Apixaban [Eliquis] 5 mg PO BID 04/13/21 07/16/21 Finasteride [Proscar] 5 mg PO DAILY 04/13/21 07/16/21 Lisinopril [Zestril] 20 mg PO DAILY 04/13/21 07/16/21 Tamsulosin [Flomax] 0.4 mg PO DAILY 04/13/21 07/16/21 Docusate Sodium 250Mg Capsule 500 mg PO DAILY #60 cap 06/17/21 07/16/21 [Colace 250Mg Capsule] OXcarbazepine [Trileptal] 600 mg PO BID #60 tablet 06/17/21 07/16/21 levETIRAcetam [Keppra] 1,000 mg PO BID #240 tablet 06/17/21 07/16/21 Gabapentin [Neurontin] 300 mg PO TID 09/12/21 09/12/21 Melatonin/Pyridoxine [Melatonin 5 5 mg PO QPM 09/20/21 09/20/21 mg Tablet] Furosemide [Lasix] 20 mg PO DAILY 10/10/21 10/10/21 oxyCODONE/ACET 5/325 [Percocet 5 0.5 tab PO Q4H PRN 10/18/21 10/18/21 mg/325 mg] polyethylene glycoL 3350 [Miralax] 17 gm PO DAILY 10/18/21 10/18/21 - Allergies Allergies/Adverse Reactions: Allergies Allergy/AdvReac Type Severity Reaction Status Date / Time No Known Drug Allergies Allergy Verified 04/13/21 12:38 Review of Systems - Constitutional Constitutional: reports: Fatigue (will nap during the day), Weight gain (Left MAC 23.5cm 08/15/2021; weight last month 172lb August 2021). denies: Fever, Poor appetite - Ears, Nose & Throat Ears, Nose & Throat: reports: Hearing loss, Hearing aids (Over the years has been trialed on multiple different hearing aid sets that were ineffective and therefore, the patient does not wear hearing aids. Speaking into his right ear is most effective.). denies: Dentures - Cardiovascular Cardiovascular: reports: Edema (BLE, see HPI). denies: Chest pain - Respiratory Respiratory: reports: Wheezing (noted with ambulation) - Gastrointestinal Gastrointestinal: reports: Constipation (recent episode of constipation resolved with miralax), Good appetite (chopped, soft foods--does not like fruits and veggies and prefers proteins). denies: Abdominal pain, Vomiting - Genitourinary Genitourinary: reports: Other (harrison catheter in place) - Musculoskeletal Musculoskeletal: reports: Joint pain (left shoulder, intermittent and responds to tylenol), Assistive devices (walker but will not use so will hold onto family or use dick with ambulation), Transfer issues, Other (history of falls) - Integumentary Integumentary: reports: Other (skin tear to right elbow s/p fall) - Neurological Neurological: reports: General weakness, Memory problems, Seizures. denies: Headache - Psychiatric Psychiatric: reports: Hallucinations (intermittent), Other (Insomnia--improved recently per spouse) - Endocrine Endocrine: denies: Hypothyroidism - All Other Systems All Other Systems: reports: Reviewed and negative (ROS obtained from patient spouse and Monica woodward as patient is TATITLEK and poor historian due to waxing and waning cognitive ability.) Physical Exam - Vital Signs Pulse Rate: 82 O2 Saturation: 95 (on RA) Blood Pressure: 113/65 - Physical Exam General Appearance: positive: No acute distress, Alert, Other (appears stated age) Eyes Bilateral: positive: Normal inspection ENT: positive: No signs of dehydration, Other (+endentulous; Right TM visual, Left ear canal with soft, impacted cerumen unable to see TM and able to remove some cerumen with lighted currette and tolerated well with continued cerumen present.) Neck: positive: Trachea midline Cardiovascular: positive: Regular rate & rhythm Respiratory: positive: No respiratory distress, Breath sounds nml. negative: Wheezes Abdomen: positive: Non-tender, Soft, Nml bowel sounds, Other (+harrison draining yellow urine) Skin: positive: Other (Skin tear to right elbow with well defined edges with flap noted without discharge or erythema) Extremities: positive: Pedal edema (+2 BLE edema) Neurologic/Psychiatric: positive: Oriented x3 (Impairment noted), Mood/affect nml, Weakness (Left sided weakness appreciated), Other (+resting tremor to mouth and BUE noted the entire visit that decreased in intensity with ambulation. With ambulation required assistance with holding on to two parties with a s huffling gait and not dragging of LLE) Palliative Care - POLST Patient has POLST: Yes POLST Status: DNR, Comfort Measures Pain: Pain improved (Neuropathy symptoms improved with gabapentin 300mg TID) - Palliative Care Discussion: Patient is showing waxing and waning related to his overall functional decline and more recently increased and functional decline as evidenced by some increasing falls. His appetite has not been affected. Today he is presenting with some upper extremity resting tremors with appearance potentially parkinsonian that disappears with action and motion. He is requiring increased assistance from his spouse and would benefit from increased caregiving support within the home to assist with spouse who is also of an advanced age as well. Lengthy discussion had regarding caregiving options within the home and provided support regarding contacts. Given the patient's increase in falls would benefit from home health physical therapy to optimize use his overall function recognizing, that he will continue to have steady decline. Discussed hospice qualifications and goal for the family to have the patient remain within the home and eventually transition to hospice services for support. Impression and Recommendations - Palliative Care Impression: This is a aurelia 81-year-old gentleman who unfortunately sustained a CVA with residual effects with left-sided weakness and cognitive impairment who has required several hospitalizations due to seizure activity which has stabilized. He has had improvement with his neuropathy symptoms and has responded positively to gabapentin 300 mg three times daily. Given continued lower extremity edema will increase furosemide to 40 mg daily x5 days then return to 20 mg daily. Presently presenting with some possible parkinsonian type symptoms with tremors. Palliative care will continue provide care coordination, symptom management and anticipatory guidance with transition to hospice when medically appropriate. Recommendations/Counseling Done: 1. Tremors, mouth and upper extremity. Questionable epileptic activity versus TIA versus due to medication. Happens intermittently per spouse's report however, lasting longer today. Improves with action. Continue to monitor. 2. Peripheral neuropathy. Likely related to history of CVA with residual effects. Improvement of neuropathic pain most pacifically to left upper extremity. Continue gabapentin 300 mg 3 times daily. We will continue to monitor and titrate accordingly. 3. Bilateral lower extremity edema. Increase furosemide to 40 mg daily x5 days then resume furosemide 20 mg daily. Continue to encourage low-salt diet and elevate lower extremities when at rest. 4. CVA with residual effects. Occurred in October 2019. Chronic. Progressive. Supportive care. Continue secondary preventative measures for CVA such as optimizing BP control and anticoagulation. 5. History of falls due to history of CVA. Increased falls. Aware to contact EMS for lift assist if needed. Given increasing falls discuss discontinuation of eliquis at next evaluation weighing benefits vs burdens. Request home health PT to evaluate and treat. 6.Seizure disorder due to CVA. No other underlying causes found for seizure disorder per family report. Last hospitalized June 2021. Presently on Keppra 1000 mg twice daily and Trileptal 600 mg twice daily. Seizure precautions. 7. Caregiver burden. Patient's spouse provides the bulk of caregiver. Concerns regarding her home capabilities maintaining in the future and today lengthy discussion regarding increased support. Presently supported by 2 paid caregivers as well as her daughters within the home. Also has palliative care volunteer to provide some additional respite. We will provide caregiver agency list to spouse for reference as well as insurance agency referral to [facility] to determine in additional resources for the patient. 8. Advanced care planning. Family's goals are focused on comfort measures within the home with avoidance of hospitalization. Patient continues to have waxing and waning cognition and continued functional decline. Will attempt to optimize with home health physical therapy and if continued decline is noted make a transition to hospice services if appropriate. 9. Skin tear to right elbow. Request home health nurse to evaluate this afternoon and provide appropriate wound care management. [facility]. Total time spent 60 minutes with greater than 50% of the spent in counseling and coronation of care with the patient, spouse, and daughter, Monica; examination of patient; supportive listening; review of medications, purpose, dose and side effects; and anticipatory guidance. 10/18/2021 1300contacted the patient's spouse for status update and reports that the patient is no longer demonstrating tremors. Discussed transitioning to Vimpat for potential breakthrough seizure activity. Spouse reports that patient was on that for less than a month before transition to Keppra and it was not effective. Also expresses concerns with Vimpat due to cost. As patient is presently without symptoms we will continue to monitor and consider transition to extended release Keppra with a one-to-one ratio and determine if this can be weaned down as this may be the cause of some tremors patient is presenting with. Presently, patient's spouse does not want to make any changes to the patient's medication regimen and will continue to monitor. Disclaimer: The chart note was formulated using voice recognition technology and unfortunately sound alike errors may occur.
== END 2021-10-17 09:31 | disposition home or self-care (01) ==
LOC: PC 09:30
PROVIDERS: ATTEND Nurse Practitioner Family
DX: Z51.5 Encounter for palliative care (principal); I69.398 Other sequelae of cerebral infarction; I69.354 Hemiplegia and hemiparesis following cerebral infarction affecting left non-dominant side; I69.319 Unspecified symptoms and signs involving cognitive functions following cerebral infarction; R25.1 Tremor, unspecified; R60.0 Localized edema; G40.802 Other epilepsy, not intractable, without status epilepticus; R29.6 Repeated falls; S51.011A Laceration without foreign body of right elbow, initial encounter; Z79.899 Other long term (current) drug therapy; Z79.01 Long term (current) use of anticoagulants; Z74.1 Need for assistance with personal care; Z66 Do not resuscitate
CPT/HCPCS: 99350

== ENCOUNTER 2021-11-06 09:15 | Outpatient (CLI) | payer MEDICARE ==
--- NOTE | 2021-11-06 11:26 | CONSULTATION NOTE ---
Palliative Care Follow Up - Referral Referring Provider: Flavia Nuñez PA-C Time of Visit: Referral setting: Home Referral Reason: Seizures/Neuropathy/Debility/CVA - Information Sources Records reviewed: Previous records reviewed History/Review of Systems obtained from: Patient, Family (spouse, Gonzalo) Exam limitations: Clinical condition (+[place] and mild STM impairment) - History of Present Illness Update Brief HPI Update: This is an 81-year-old gentleman who was seen in follow-up today with his home due to history of CVA with residual effects, cognitive decline, increasing debility, neuropathy, edema and recent parkinsonian-like symptoms with his spouse, Gonzalo present. Patient continues to have breakthrough seizures. I discussed with the patient's spouse about transitioning to Vimpat and a transition with the patient's Keppra however, patient had previously been on Vimpat for about a month before he transition to Keppra and is also on trial of Trileptal for his seizure activities. Despite this, he continues to have breakthrough seizures last one was reported on 51 that sounds to be tonic-clonic with motions and outbursts. Subsequently resolved however, is distressing for the patient's spouse when this occurs. On last evaluation on 10/17 the patient presented with tremors and question if this was due to epileptic activity or due to the patient's Keppra causing some parkinsonian-like activity. This has greatly improved and resolved for the most part per the patient's spouse. The patient himself reports that he will have tension in his left upper extremity that will build up and transition to his right shoulder and result in tremors that will be in his upper body and then result down his left lower leg. If he squeezes his tension ball in his left hand this helps and provides improvement. He is on as needed Percocet intermittently and this is providing relief typically used once per day per spouse's report. He is presently working with physical therapy from [facility] due to his recent falls however, spouse does not perceive any noted benefit from addition of physical therapy services. Due to the recent fall this month required use of EMS for lift assist. Recently, the patient is now asking for a wheelchair with ambulation. He is opting to use the wheelchair not ambulating. He is dragging his left foot likely residual from his CVA. If he does ambulate then he is holding on to a wall as well as an individual to make that ambulation occur. Over the weekend, spouse reports that there was some blood tinge in the patient's Harrison catheter. She increased his fluids and this subsequently resolved. He is remained afebrile without mental status changes or penile discharge. Therefore, will not move forward with obtainment of a urine specimen. The patient is often scratching in his groin and likely caused some trauma to the urethra resulting in some gross hematuria. 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 Social History - Living Situation Living arrangement: At home Living Situation: With spouse/s.o. Support System: Patient grew up in [place] [facility] [place] [facility]. He performed various jobs throughout his career and his passion has been gardening and always working outside. He was an avid chess player as well as reader however, he is no longer reading. His is a retired technical services librarian. He served in the [employer]. The patient and his spouse relocated to [place] to be closer to their daughters approximately 5 years ago. Daughters provide assistance with care. They also have 2 private caregivers, Farhana and Missy who come for 4 hours 2 days/week. There is a small dog, Jovanni who resides in the home. The patient is followed by [facility], [facility] and PT. Supported by [facility]. Medications/Allergies - Medications Home Medications: Ambulatory Orders Medication Instructions Recorded Confirmed carvediloL [Coreg] 3.125 mg PO BID #60 tablet 10/25/19 07/16/21 Apixaban [Eliquis] 5 mg PO BID 04/13/21 07/16/21 Finasteride [Proscar] 5 mg PO DAILY 04/13/21 07/16/21 Lisinopril [Zestril] 20 mg PO DAILY 04/13/21 07/16/21 Tamsulosin [Flomax] 0.4 mg PO DAILY 04/13/21 07/16/21 Docusate Sodium 250Mg Capsule 500 mg PO DAILY #60 cap 06/17/21 07/16/21 [Colace 250Mg Capsule] OXcarbazepine [Trileptal] 600 mg PO BID #60 tablet 06/17/21 07/16/21 levETIRAcetam [Keppra] 1,000 mg PO BID #240 tablet 06/17/21 07/16/21 Gabapentin [Neurontin] 300 mg PO TID 09/12/21 09/12/21 Melatonin/Pyridoxine [Melatonin 5 5 mg PO QPM 09/20/21 09/20/21 mg Tablet] Furosemide [Lasix] 20 mg PO DAILY 10/10/21 10/10/21 oxyCODONE/ACET 5/325 [Percocet 5 0.5 tab PO Q4H PRN 10/18/21 10/18/21 mg/325 mg] polyethylene glycoL 3350 [Miralax] 17 gm PO DAILY 10/18/21 10/18/21 Nystatin [Nystop] 1 applic TP BID PRN 11/06/21 11/06/21 - Allergies Allergies/Adverse Reactions: Allergies Allergy/AdvReac Type Severity Reaction Status Date / Time No Known Drug Allergies Allergy Verified 04/13/21 12:38 Review of Systems - Constitutional Constitutional: reports: Fatigue (will nap during the day), Other (Left MAC 23.5cm 08/15/2021). denies: Fever - Eyes Eyes: denies: Corrective lenses - Ears, Nose & Throat Ears, Nose & Throat: reports: Hearing loss, Hearing aids (Over the years has been trialed on multiple different hearing aid sets that were ineffective and therefore, the patient does not wear hearing aids. Speaking into his right ear is most effective.). denies: Dentures - Cardiovascular Cardiovascular: denies: Chest pain, Edema (Decreased to BLE with lasix) - Respiratory Respiratory: reports: Wheezing (noted with ambulation, intermittent). denies: Cough - Gastrointestinal Gastrointestinal: reports: Other (Noted beginning decline of appetite; chopped, soft foods--does not like fruits and veggies and prefers proteins. Will drink 1 pepsi per day but will not give up his potato chips). denies: Abdominal pain, Constipation, Vomiting - Genitourinary Genitourinary: reports: Other (harrison catheter in place). denies: Hematuria (Resolved), Urethral discharge - Musculoskeletal Musculoskeletal: reports: Joint pain (left shoulder, intermittent and responds to tylenol), Assistive devices (walker but will not use so will hold onto family or use dick with ambulation now requesting wheelchair), Transfer issues, Other (history of falls) - Neurological Neurological: reports: General weakness, Memory problems, Seizures (Seizure week of 10/28/21). denies: Headache - Psychiatric Psychiatric: reports: Hallucinations (intermittent) - All Other Systems All Other Systems: reports: Reviewed and negative (ROS obtained from patient spouse, Gonzalo, as patient is [place] and poor historian due to waxing and waning cognitive ability.) Physical Exam - Vital Signs Temperature: 36.6 C Pulse Rate: 70 O2 Saturation: 96 (on RA) Blood Pressure: 135/73 (left wrist) - Physical Exam General Appearance: positive: No acute distress, Alert, Other (appears stated age) Eyes Bilateral: positive: Normal inspection ENT: positive: No signs of dehydration, Other (+endentulous; Left ear canal with soft, impacted cerumen unable to see TM and able to remove cerumen with lighted currette and tolerated well and TM visualized and intact.) Neck: positive: Trachea midline Cardiovascular: positive: Regular rate & rhythm Respiratory: positive: No respiratory distress, Breath sounds nml. negative: Wheezes Abdomen: positive: Non-tender, Soft, Nml bowel sounds, Other (+harrison draining yellow urine without sediment or hematuria) Skin: positive: Dryness, Rash (To groin, mild erythma c/w candidasis) Extremities: positive: Pedal edema (Trace BLE (improved)) Neurologic/Psychiatric: positive: Oriented x3 (Impairment noted), Mood/affect nml, Weakness (Left sided weakness appreciated), Other (+resting tremor to mouth without tremor to BUE (noted on last evaluation to have tremor to upper body on 10/18)) Palliative Care - POLST Patient has POLST: Yes POLST Status: DNR, Comfort Measures Pain: Pain improved (with gabapentin 300mg TID) Performance Status: Patient requires assistance with hygiene and unable to prepare meals. He requires assistance with medication administration. Since early October 2021 he is now opting to utilize a wheelchair for transfers and not ambulating with contact support and holding onto family with the wall given left-sided weakness to his lower extremity. - Palliative Care Discussion: The patient is demonstrating more evidence of overall decline as evidenced by increasing falls and now opting to utilize a wheelchair versus ambulation with contact assistance holding onto parties given his lower extremity weakness and left foot dragging. Spouse has not appreciated a benefit from physical therapy services and does not perceive this assisting in the future. Goals have remained surrounding with the patient having comfort measures at home and to avoid the hospital. Given he also has demonstrated resting tremors that are potentially parkinsonian at times as well as breakthrough seizures and due to the above stated goals recommend transitioning to hospice services for additional support given the patient continues to demonstrate decline. Spouse i s amenable and in agreement with making this transition to optimize comfort. Impression and Recommendations - Palliative Care Impression: This is a aurelia 81-year-old gentleman who unfortunately sustained a CVA with residual effects with left-sided weakness and cognitive impairment who is required several hospitalizations due to seizure activity. His most recent seizure activity was surrounding October 28. He last demonstrated some parkinsonian-like symptoms with tremors potentially due to his antiepileptic medication. Given he is having continual functional decline in the setting of cognitive impairment with breakthrough seizure activity and history of CVA with residual effects will refer to hospice services for additional management and support. Recommendations/Counseling Done: 1. Tremors, mouth. Resting. No longer with evidence of upper extremity tremors. Questionable if this is epileptic activity versus nerve irritation status post CVA versus parkinsonian-like symptoms due to high-dose Keppra. Has the patient is presently stable we will not make any changes but consider in the future transition to extended release Keppra with a one-to-one ratio and determine if this may be a better profile for the patient and symptom reduction. We will continue to monitor. 2. Candidiasis, topical to the groin. Initiate nystatin powder to affected areas twice daily until rash resolves as needed. Rx sent to [facility]. 3. 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 No underlying causes found for seizure disorder per family report. Last hospitalized in June 2021. Presently on Keppra 1000 mg twice daily and Trileptal 600 mg twice daily. Seizure precautions. Last seizure around October 28. Consider transition to extended release Keppra in the future if tremors persist and impact function. 4. Debility. Increasing difficulty with ambulation with history of frequent falls and history of CVA with residual effects. Given the patient's continued decreasing function will transition to hospice services for support as he is demonstrating continued decline. 5. Peripheral neuropathy. Likely related to history of CVA with residual effects. Improvement of neuropathic pain with initiation of gabapentin. Continue gabapentin 300 mg 3 times daily. Continue to monitor and titrate dosage accordingly. 6. Impacted cerumen left ear. Lighted curette and otoscope used to remove impacted cerumen. Patient tolerated procedure well and able to visualize left TM visualized and intact. Hearing improved. 7.Gross hematuria. Resolved. Likely due to mechanical trauma from the patient pulling the Harrison catheter when scratching in the area. No urinary complaints the patient is afebrile. Continue to encourage oral hydration and monitor. 8. Advanced care planning. Family's goals are to focus on comfort measures within the home with avoidance of hospitalization. Patient has waxing waning c ognition but continues to have functional decline. No improvement noted with initiation of home health physical therapy and therefore given continued decline will make a transition to hospice services for additional support. Supportive and empathetic listening provided to the patient's spouse. [facility] Total time spent 45 minutes with greater than 50% of the spent in counseling and coronation of care with the patient and spouse; examination of patient and removal of impacted cerumen; review of hospice philosophy and de-escalation of care; review of symptom management and anticipatory guidance. Disclaimer: The chart note was formulated using voice recognition technology and unfortunately sound alike errors may occur.
== END 2021-11-06 09:16 | disposition home or self-care (01) ==
LOC: PC 09:15
PROVIDERS: ATTEND Nurse Practitioner Family
DX: Z51.5 Encounter for palliative care (principal); R25.1 Tremor, unspecified; B37.89 Other sites of candidiasis; I69.398 Other sequelae of cerebral infarction; I10 Essential (primary) hypertension; R53.81 Other malaise; G62.9 Polyneuropathy, unspecified; H61.22 Impacted cerumen, left ear; Z66 Do not resuscitate
CPT/HCPCS: 99349